=== PATIENT | male | born 1960 | race Caucasian/White ===

== ENCOUNTER 2021-03-19 20:10 | Emergency (ER) | payer BC, SELFPAY ==
[2021-03-19 20:10] VITALS: BP 201/110; PULSE 86; RESP 8; TEMP 35.5; O2SAT 96; BMI 37.3
--- NOTE | 2021-03-19 20:37 | RAD_ITS ---
INDICATION: constipation EXAMINATION/TECHNIQUE: X-RAY - XR Abdomen 1 View COMPARISON: None FINDINGS: BOWEL GAS PATTERN: Non-obstructive. No bowel or stomach distention. FREE AIR: Not assessed on a single supine view. ORGANOMEGALY: Not seen. CALCIFICATIONS: No abnormal calcifications observed. LOWER CHEST: No acute pathology. BONES AND SOFT TISSUES: No acute pathology. RAD/Abdomen Single View IMPRESSION: Non-obstructive bowel gas pattern. Electronically Signed: Glenn Blanco MD at 21:03 EDT Tel , Service support ,
--- NOTE | 2021-03-19 22:58 | CT_ITS ---
ACR Level 3 findings have been noted. An addendum which confirms receipt of the report will follow. STUDY: CT ABDOMEN AND PELVIS WITH CONTRAST REASON FOR EXAM: Male, 60 years old. Abdominal and rectal pain. TECHNIQUE: Transaxial images were obtained from the dome of the diaphragm to the symphysis pubis without oral contrast. IV 100mL Isovue-300 was administered. Sagittal and coronal images were reconstructed. Individualized dose optimization techniques were used for this CT. COMPARISON: Abdominal radiographs earlier today. FINDINGS: Partially visualized lower chest: Lung bases unremarkable. Liver: No concerning lesions. Mild hepatomegaly Gallbladder and biliary tree: No visible gallstones. No pericholecystic inflammation. No biliary ductal dilation. Pancreas: No pancreatic lesions or inflammation. Spleen: Mild splenomegaly. No splenic lesions. Adrenal glands: No concerning masses. Kidneys and ureters: No hydronephrosis or renal stones. No concerning masses. No ureteral dilation. Bowel: Normal appendix. 3.9 x 2.5 x 2.6 cm TRV X AP X CC abscess along the posterior aspect of the rectal -- anal junction. Axial image 119. Inflammatory changes in the adjacent fat. The more cephalad rectum and left colon are mildly thick-walled though not fully distended. Scattered sigmoid colon diverticula, no diverticulitis. Small bowel unremarkable. Urinary bladder: No stones or wall thickening. Reproductive: Upper normal in size prostate. Vascular: No abdominal aortic aneurysm. Retroperitoneal and peritoneal spaces: No free air or free fluid. No extraluminal air. No adenopathy. Osseous: No acute osseous abnormality. Mild left scoliosis centered at L3. Abdominal and pelvic wall: Otherwise unremarkable. CT/Abdomen/Pelvis W IV Cont ONLY IMPRESSION: 3.9 cm in greatest dimension abscess along the posterior aspect of the rectal -- anal junction with adjacent inflammation. Mild wall thickening of the more cephalad rectum and left colon could be due underdistention or a mild infectious or inflammatory colitis. No other acute findings. Mild hepatosplenomegaly. Electronically Signed: Mak Reynoso MD at 23:52 EDT Tel , Service support ,
[2021-03-19 23:28] VITALS: BP 171/85; PULSE 75; RESP 15; O2SAT 95
--- NOTE | 2021-03-19 23:28 | EX.ED.DYSGE1 ---
HPI History of Present Illness Chief Complaint: Constipation Informant: patient Narrative Narrative: 60-year-old male presents with constipation of 6 days duration. He states he feels like he has a football in his rectum. He is feels bloated. He states he has been taking some stool softeners and some MiraLAX for the past 5 days with no success. He tried a home enema as well today. He is having some rectal pain. No fevers. No urinary symptoms. PFSH PFSH no medical history Home Medications hydrocortisone [Procto-Med HC] 1 applic OR TID PRN #30 g 03/19/21 [Rx Last Taken Unknown] hydrocodone-acetaminophen 1 tab PO Q6H PRN PRN 3 Days #12 tablet 03/20/21 [Rx Last Taken Unknown] Allergy/AdvReac Type Severity Reaction Status Date / Time No Known Allergies Allergy Verified 03/19/21 20:12 no surgical history (Noncontributory) Social History (Updated 03/19/21 @ 23:[address] Bryan Truong, DO) Smoking Status: Current every day smoker substance use type: does not use ROS ROS ED Constitutional Constitutional ED: Denies chills or weight loss Eyes Eyes: Denies change in vision or diplopia ENT ENT ED: Denies ear pain, rhinorrhea or sore throat Cardiovascular Cardiovascular: Denies chest pain, orthopnea, palpitations or racing heartbeat Respiratory/Chest Respiratory/Chest: Denies cough, dyspnea or orthopnea Gastrointestinal Gastrointestinal: Reports abdominal pain, constipation and other Details: Rectal pain ; Denies diarrhea, nausea or vomiting Genitourinary Genitourinary ED: Denies dysuria, hematuria or urinary frequency Musculoskeletal Musculoskeletal: Denies arthralgias or myalgias Integumentary Denies abscess or rash Neurologic Neurologic: Denies headache(s) or weakness Psychiatric Psychiatric: Denies anxiety, depression, suicidal ideation or suicidal thoughts Endocrine Endocrinology: Denies polydipsia, polyphagia or polyuria Allergic/Immunologic Allergic/Immunologic ED: Denies mouth swelling, tongue swelling or urticaria EXAM Physical Exam Const Vital Signs: 03/19/21 20:10 03/19/21 23:28 Temperature 95.9 F L Temperature Source Temporal Pulse Rate 86 75 Respiratory Rate 8 L 15 Blood Pressure 201/110 H 171/85 H Blood Pressure Mean 140 113 Pulse Ox 96 95 Oxygen Delivery Method Room Air Room Air Positive well nourished and well developed General Appearance ED: well developed HEENT Reports normocephalic, head/scalp atraumatic and moist mucous membranes Eyes PERRL and EOMs intact bilaterally Neck no lymphadenopathy, supple and no JVD Resp normal respiratory effort and clear to auscultation bilaterally Cardio regular rate, regular rhythm and no murmurs GI normal to inspection, nondistended, normoactive bowel sounds and non-tender GI Narrative: Rectal exam reveals a nonthrombosed hemorrhoid. Internal exam basically prohibited secondary to pain Palpation: soft Back/Spine no CVA tenderness and normal ROM Extremity normal to inspection General Extremety ED: Negative for edema General Extremity: Negative for edema Neuro oriented x3 and CN's II-XII intact bilaterally Sensorium / Orientation: alert Motor Exam: strength 5/5 throughout Psych mental status grossly normal Mood & Affect: Negative for depressed or tearful Skin no rashes or lesions noted and no wounds MDM MDM MDM Narrative Medical decision making narrative: Abdominal x-ray does not show an obstructive pattern or any obvious large fecal impaction or significant stool burden. He received a soapsuds enema and had a bowel movement. He has a nonthrombosed hemorrhoid that is very tender. He points more posteriorly to that and tells me that that is what is feeling swollen and painful. I do not see/palpate an obvious abscess. Internal rectal exam is limited due to pain. We obtained a CT of the pelvis. This demonstrates a rectal abscess measuring 3.9 x 2.5 x 2.6 cm. Patient is afebrile. I spoke with our surgeon Dr. Gonzalez. I will give him a dose of IV antibiotics and I will write for pain medication. He is call the office at 8 AM to be seen tomorrow. Will write for home pain medication he should continue his stool softeners. Radiography Diagnostic Testing: Radiology Impression KUB X-Ray 03/19/21 20:37 IMPRESSION: Non-obstructive bowel gas pattern. Electronically Signed: Glenn Blanco MD at 21:03 EDT Tel , Service support , Abdomen/Pelvis CT 03/19/21 22:58 IMPRESSION: 3.9 cm in greatest dimension abscess along the posterior aspect of the rectal -- anal junction with adjacent inflammation. Mild wall thickening of the more cephalad rectum and left colon could be due underdistention or a mild infectious or inflammatory colitis. No other acute findings. Mild hepatosplenomegaly. Electronically Signed: Mak Reynoso MD at 23:52 EDT Tel , Service support , Discharge Plan Triage Chief Complaint: Constipation ED Provider: Bryan Truong Dx/Rx/DC Orders Clinical Impression: External hemorrhoid, Abscess of rectum Instructions: ED Hemorrhoids Prescriptions: New hydrocortisone [Procto-Med HC] 2.5 % cream with perineal applicator 1 applic OR TID PRN (Reason: hemorrhoids) Qty: 30 RF: 0 hydrocodone-acetaminophen [hydrocodone-acetaminophen] 1 TABLET tablet 1 tab PO Q6H PRN PRN (Reason: Pain) 3 Days Qty: 12 RF: 0 Primary Care Provider: Care Physician,No Primary Referrals: Audrey Gonzalez MD [STAFF PHYSICIAN] - As soon as possible (Please call the office in the morning. You need to be seen tomorrow. Please inform the office that we spoke with Dr. Carlos riojas and that is the plan.) Care Physician,No Primary [Primary Care Provider] - Disposition Disposition: Home, self care
[2021-03-20] MEDS: Lidocaine Jelly 2% 20 ML Syringe (URO-JET) 20 APPLIC TOPICAL (00:05)
[2021-03-20 01:00] VITALS: BP 155/91; PULSE 75; RESP 15; O2SAT 95
[2021-03-20 01:20] VITALS: BP 155/91; PULSE 75; RESP 15; O2SAT 95
== END 2021-03-20 01:41 | disposition home or self-care (01) ==
PROVIDERS: Emergency Provider Emergency Medicine
DX: K64.4 Residual hemorrhoidal skin tags (principal); K61.1 Rectal abscess; F17.200 Nicotine dependence, unspecified, uncomplicated
CPT/HCPCS: 74018; 74177; 96365; 99285; Q9967

== ENCOUNTER 2021-03-20 14:31 | Day surgery (SDC) | payer BC, SELFPAY ==
[2021-03-19 20:10] VITALS: BMI 37.3
[2021-03-20] VITALS (22 sets, daily range): BP systolic 70–147; BP diastolic 47–101; PULSE 66–80; RESP 15–20; TEMP 36.5–37.3; O2SAT 90–98; BMI 34.4
--- NOTE | 2021-03-20 14:07 | HP.PCM_ITS ---
History and Physical Date of Admission: 03/20/21 HISTORY AND PHYSICAL ? Ishan Adorno 1960 ? ? REFERRING PHYSICIAN:?? [facility], [facility]* ? CHIEF COMPLAINT:?? Consult (Perirectal Abscess) ? HPI: The patient is a 60 year old male presents from [facility] ED with perirectal abscess.. He has had pain in the area for the past 6 days. No such previous history of pain. He does admit to chronic constipation and straining with bowel movements. He states that the area is very tender to touch and thus examination is suboptimal. He denies fevers. He denies diabetes. He admits to cigarettes use. His BMI > 30. ? ? ? PAST MEDICAL HISTORY Diagnosis? Date ? Dysthymic disorder? Depression (non-psychotic) ? Perirectal abscess? 03/2021 ? Unspecified essential hypertension? Essential hypertension ? ? ? PAST SURGICAL HISTORY Procedure? Laterality? Date ? PAST SURGICAL HISTORY OF? wisdom tooth removed ? PAST SURGICAL HISTORY OF? right hand-middle finger ? PAST SURGICAL HISTORY OF? james. foot surgery as child ? VASECTOMY? 07/09/2003 ? ? ? Current Outpatient Medications Medication? Sig ? clindamycin 300 mg capsule? Take 1 capsule by mouth three times daily. ? ? ALLERGIES: Penicillin G ? PERSONAL HISTORY: ? Social History ? ? Tobacco Use ? Smoking status:? Current Every Day Smoker ? Smokeless tobacco:? Never Used ? Tobacco comment: smokes 3 cigarettes per day Substance Use Topics ? Alcohol use:? No ? Drug use:? No ? Comment: quit ? ? ? FAMILY HISTORY Problem? Relation? Age of Onset ? Cancer? Mother ? lung ? Diabetes? Father? Stroke?? Father? Cancer? Father? esophageal ? Diabetes? Paternal Grandmother? Diabetes? Paternal Grandfather? The review of systems data was entered by the nurse and reviewed by me ? Nursing Notes: Yaima Jo PROCESS TREATER? 03/20/2021? 1:30 PM? Signed REVIEW OF SYSTEMS: ? General:?? The patient denies fatigue, denies weight loss, denies weight gain, denies feeling hot, and denies feelings of cold. ? Eyes:? The patient denies glaucoma, denies eye injury/surgery, wears glasses or contacts. ? Ear/Nose/Throat:? The patient NOTES allergies, denies hayfever, denies ear infections, and denies bloody noses. ? Cardiovascular:? The patient denies chest pain, denies heart disease, NOTES high blood pressure,denies cardiac stent, NOTES prior heart attack, denies irregular heart beat, denies high cholesterol,? denies poor circulation, denies heart failure, other cardiac issues, denies claudication, denies cold feet, denies peripheral arterial stent. ? Respiratory:? The patient denies tuberculosis, denies pneumonia, denies frequent cough, denies pulmonary embolism, denies shortness of breath, and denies coughing up blood. ? Gastrointestinal:? The patient denies difficulty swallowing, denies acid reflux, denies ulcers, denies vomiting, denies jaundice/hepatitis, denies gallbladder problems, denies black or tarry stools, NOTES hemorrhoids, denies bleeding from rectum, denies diverticulitis, NOTES constipation, denies diarrhea, denies loss of stool control, and denies hernias. ? Kidney/Bladder:? The patient denies kidney stones, denies urine infections, and denies bloody urine. ? Skin:? The patient denies a history of skin cancer, denies bleeding/changing moles, and denies a history of skin rash. ? Neurologic:? The patient denies a history of epilepsy/convulsions, denies headaches, denies head/spinal injuries, and denies stroke/TIA. ? Psychiatric:? The patient denies psychiatric medications, denies depression, and denies voices, denies substance abuse. ? Endocrine:? The patient denies thyroid disorders, denies diabetes, and denies hormonal problems. ? Hematologic:? The patient denies a history of bruising, denies bleeding, and denies anemia, NOTES blood clots. ? Infections:? The patient denies a history of measles and mumps, denies rheumatic fever, and denies sexually transmitted diseases. ? Musculoskeletal:? The patient denies back pain/injury, denies back problems, denies sciatica, denies knee/foot trouble, NOTES arthritis, or denies gout. When was patient's last Mammogram screening? N/A ?Last Colonoscopy:? Unknown Yaima Sandro OCONNOR ? ? PHYSICAL EXAMINATION: General:? The patient is 60 year old male, well nourished, well hydrated in obvious pain.? The patient is oriented to time, place, and person. VITALS: Blood pressure 164/88, pulse 79, temperature 36.2 ?C (97.2 ?F), height 182.9 cm (6'), weight 116.1 kg (256 lb), SpO2 94 %. Body mass index is 34.72 kg/m?. Head ? Normocephalic. EOM intact with sclera clear and no icterus noted. Neck - supple with no jugular venous distention noted. Trachea is midline. Lungs ? clear to auscultation. Normal breath sounds. No rales/rhonchi/wheezing noted. No labored breathing noted, such as retractions. No cough heard. Heart ? normal S1 and S2 auscultated. No rubs/clicks/murmurs noted. Regular rate. Abdomen ? soft and benign. Normal bowel sounds.? Difficult to determine if any masses or organomegaly due to body habitus. Rectal - normal perianal skin except for erythema of left side - no induration palpated but supoptimal examination due to patient's pain, no drainage noted Extremities ? no calf tenderness noted. No pitting edema noted. Skin ? normal skin integrity. Neurological ? gait normal, no focal deficits noted. Psych ? calm and appropriate RADIOLOGIC STUDIES:? As Noted ? ? Assessment ? IMPRESSION: perirectal abscess ? PLAN:?? I have discussed the above with the patient and his son who is present with him. I have offered incision and drainage of this perirectal abscess.? It must be deep in the patient's tissues and also patient's body habitus precludes superficial exploration. Thus will need anesthesia for this. I have explained the procedure to the patient. I have counseled the patient as to the risks of the procedure, including but not limited to: infection, bleeding, injury to any blood vessels/nerves, scar tissue, recurrence of infection, possible incontinence, complications of anesthesia, etc. ? the patient understands. ? The patient was offered a surgery/procedure . The provider and patient have discussed in detail the risk of exposure to and/or potential harm posed by the COVID-19 virus with having a surgery/procedure at this time versus the risk of? delaying the surgery/procedure. It is not possible to know either the risk of delaying the surgery or procedure or chance of getting an infection with perfect accuracy, but a joint decision was made between the patient and the provider ?to proceed at this time with the scheduled surgery/procedure. ? The patient wishes to proceed. ? ? I have answered all questions to the patient?s satisfaction and the patient has no further questions. ? ? . Diagnoses: (K61.1) Rectal abscess? (primary encounter diagnosis) ? Return to Clinic: The patient is instructed to follow-up with me after the procedure. ? Audrey Gonzalez MD
[2021-03-20] MEDS: Lactated Ringers 1,000 ML 100 ML IV (15:45)
--- NOTE | 2021-03-20 16:55 | PCM.OPRPT ---
Report of Operation Date of Procedure: 03/20/21 Pre-Operative Diagnosis: rectal abscess Post-Operative Diagnosis: ischiorectal abscess Surgery/Procedure Performed:: evacuation and drainage of ischiorectal abscess Description of Surgical Findings:: minimal swelling exteriorly, pressure applied to area resulting in spontaneous drainage from midline central posterior aspect just inside dentate line Type of Anesthesia: General Anesthesiologist: [place] Specimen's removed: aerobic and anaerobic cultures of purulent fluid Estimated Blood Loss (mL): < 10 ml Fluids Replaced: 500 ml RL Description of Procedure: After informed consent was given, the patient was brought to the Operating Room. Appropriate time out protocol was followed. He was then placed under general anesthesia by the anesthesia provider. The patient was placed in the lithotomy position with appropriate padding to all pressure areas. The perineum and rectum was then cleansed with a sterile betadyne surgical preparation. The skin and subcutaneous tissues around the perianal area was then injected with 0.25% marcaine with epinephrine - 30 ml used. The anal canal was then palpated. The patient is obese and his body habitus precluded an easy examination. However, there was induration palpated posteriorly. Most of the patient's skin erythema was left lateral. Therefore a small skin incision was made with an 11 blade scalpel just to the left lateral of the posterior midline. Gentle probing was done to evaluate for any purulent cavity. However, none was found via this approach. Therefore, the mass was palpated further and then spontaneous purulent drainage was noted to emanate from the patient's rectum. The opening from which this drainage emanated was then carefully probed. It was proximal to the dentate line. There was an abscessed cavity in this area directed posteriorly and it was completely evacuated of purulent fluid. Culture sticks were used. It was then irrigated vigorously with hydrogen peroxide. Hemostasis was provided with electrocautery. A thrombin gel foam with buvicaine cream was applied to the anal canal. Patient was extubated and brought to Recovery Room in stable condition. Complications None noted Admit VTE Documentation VTE Present on Admission: Yes VTE Mechan Device Prophylaxis: SCD's
[2021-03-20] MEDS: Dibucaine 30 GM Tube 1 APPLIC (16:58)
[2021-03-20] MEDS: Bupiv/Epi 0.25% 30 ML Vial (16:58)
--- NOTE | 2021-03-20 17:52 | DCINST_ITS ---
Discharge Instructions Follow Up Care Test Results: Test results from this visit will be discussed in further detail at your follow-up appointment, if applicable. Discharge Plan Admission Attending Provider: Audrey Gonzalez Primary Care Provider: Care Physician,No Primary Instructions Additional Instructions / Restrictions: Recommended pain control regimen - May take 600 mg ibuprofen (Motrin) and then in 3-4 hours, may take 650 mg acetaminophen (Tylenol), then in 3-4 hours may take 600 mg ibuprofen, then in 3- 4 hours may take 650 mg acetaminophen and so on for 2-3 days May take narcotic pain medication for pain that is not controlled by above and at night for comfort through the night May soak in tub for comfort Avoid straining with bowel movements, mineral oil may help (1-2 tablespoons mixed with pudding/yogurt/etc. - may help), take an over the counter laxative if needed You will have rectal bleeding - this is normal, use pads to prevent staining clothing/bedsheets/etc. Please call for a follow up appointment in 3-4 weeks, During the week day, if you have any problems/questions, please call at . Take in 25-30 grams of fiber per day (check ingredients label on food packaging) Drink 8-10 glasses of water per day. Discharge Orders/Prescriptions Prescriptions: New hydrocodone-acetaminophen 5-325 mg tablet 1 tab PO Q8H 5 Days Qty: 15 RF: 0 No Action hydrocortisone [Procto-Med HC] 2.5 % cream with perineal applicator 1 applic [place] TID PRN (Reason: hemorrhoids) Qty: 30 RF: 0 hydrocodone-acetaminophen [hydrocodone-acetaminophen] 1 TABLET tablet 1 tab PO Q6H PRN PRN (Reason: Pain) 3 Days Qty: 12 RF: 0 Referrals: Care Physician,No Primary [Primary Care Provider] - Disposition Discharge Orders: Discharge Patient (Routine); Ordered 03/20/21 Ordered By: Dr. Audrey Gonzalez
[2021-03-20] MEDS: HYDROcodone Bitartrate/Apap 5/325 Tablet PO (18:50)
[2021-03-20] MEDS: Albuterol 2.5 MG/3 ML VIAL.NEB. INHALATION (19:30)
--- NOTE | 2021-03-20 20:30 | RAD_ITS ---
INDICATION: EVALUATE LUNG STATUS DUE TO LOW OXYGEN SATURATION -- 88% ON ROOM AIR EXAMINATION/TECHNIQUE: X-RAY - XR Chest 1 View COMPARISON: None. FINDINGS: Left basilar atelectasis. The lungs are otherwise clear. The cardiomediastinal silhouette is unremarkable. No pleural effusion or pneumothorax. No acute osseous abnormalities. RAD/Chest 1 View (Portable) IMPRESSION: Left basilar atelectasis. The lungs are otherwise clear. Electronically Signed: Glenn Blanco MD at 21:35 EDT Tel , Service support ,
== END 2021-03-20 21:13 ==
LOC: SDC 14:32 → AC 14:33
PROVIDERS: Referring Provider Surgery; Visit Provider Surgery
PROC: (CPT 46040; principal; 2021-03-20 15:45)
DX: K61.39 Other ischiorectal abscess (principal); K59.09 Other constipation; F17.210 Nicotine dependence, cigarettes, uncomplicated; I10 Essential (primary) hypertension; Z86.718 Personal history of other venous thrombosis and embolism
CPT/HCPCS: 00902; 46040; 71045; 87015; 87070; 87075; 87077; 87102; 87116; 87186; 87205; 87206; 87426; 94640; J7050; J7120; J2405

== ENCOUNTER 2022-11-19 10:47 | Emergency (ER) | payer BC, SELFPAY ==
[2022-11-19 10:47] VITALS: BP 214/117; PULSE 72; RESP 18; TEMP 36.6; O2SAT 94; BMI 34.4
[2022-11-19 10:49] VITALS: BP 200/100; PULSE 72; RESP 18; TEMP 36.6; O2SAT 96
--- NOTE | 2022-11-19 11:06 | VDLE_ITS ---
Reason For Study: Swelling Procedure LEFT This is a venous duplex using B-mode, color GSV is normal. flow and spectral Doppler. CFV is compressible, spontaneous, phasic, Exam performed portable in ED. competent, and demonstrates normal A preliminary report was called and/or faxed augmentation. to Dr. John. FV is compressible, spontaneous, phasic, competent and demonstrates normal augmentation. POP V is compressible, spontaneous, phasic, competent and demonstrates normal augmentation. T/P Trunk is compressible. PTV is compressible. LT PerV is compressible. VL/Venous Duplex US, Unilateral Interpretation Summary There is no evidence of left lower extremity deep vein thrombosis. Left great s aphenous vein appears patent and compressible segmentally. Ordering Physician: Nico John Performed By: Deana Davis, RDCS, RVT
--- NOTE | 2022-11-19 11:07 | ED.VIS.LOWEX ---
HPI History of Present Illness Chief Complaint: Wound Informant: patient Narrative Narrative: Patient's had a nonhealing wound in the medial aspect of his left ankle for about 2 or so years. This started after he got something stuck between his boot and his skin and abraded the area. He was seen by wound care for a while. But he has not seen them in a long time. Over the last days or week it is gotten a little bit more red and a little bit more weeping. He also has some more swelling. Really no change in any pain. He has had no fevers or chills. No nausea vomiting. No acute trauma. Of note, patient has had a history of blood pressure but he has never taken meds for it. He denies history of diabetes. He does not see a physician. Nothing makes the above symptoms specifically better or worse. Although he did not share information with me, his chart states he has had a prior DVT. He is not on any anticoagulation now. [facility] Medical History DVT (deep venous thrombosis) History of cardiovascular stress test History of stress test Hypertension Osteoporosis Seizures Home Medications hydrocortisone 2.5 % topical cream with perineal applicator (Procto-Med HC) [address] TID PRN hemorrhoids #30 grams 03/19/21 [Rx Last Taken Unknown] hydrocodone-acetaminophen 5-325mg 5mg-325mg 1 tab PO Q6H PRN PRN Pain 3 days #12 TABLETS 03/20/21 [Rx Last Taken 03/20/21 12:52] hydrocodone-acetaminophen 5-325mg 5mg-325mg 1 tab PO Q8H 5 days #15 tabs 03/20/21 [Rx Last Taken Unknown] amlodipine 5 mg tablet 5 mg PO DAILY #30 tabs 11/19/22 [Rx Last Taken Unknown] amoxicillin 875 mg-potassium clavulanate 125 mg tablet 1 tab PO BID #20 tabs 11/19/22 [Rx Last Taken Unknown] Allergy/AdvReac Type Severity Reaction Status Date / Time No Known Allergies Allergy Verified 11/19/22 10:50 Surgical History History of nasal surgery Hx of hand surgery Social History Smoking Status: Heavy Smoker (>10/day) substance use type: does not use ROS ROS ED Constitutional Constitutional ED: Denies chills, fever(s), subjective or sweats ENT ENT ED: Denies rhinorrhea or sore throat Cardiovascular Cardiovascular: Denies chest pain or palpitations Respiratory/Chest Respiratory/Chest: Denies cough Gastrointestinal Gastrointestinal: Denies nausea or vomiting Musculoskeletal Musculoskeletal: Reports other Details: Soreness near her left lower leg and ankle. ; Denies back pain, myalgias or neck pain Integumentary Reports rash Neurologic Neurologic: Denies paresthesias or weakness Endocrine Endocrinology: Denies polydipsia or polyuria Hematologic/Lymphatic Hematologic/Lymphatic: Denies lymphadenopathy Allergic/Immunologic Allergic/Immunologic ED: Denies urticaria EXAM Physical Exam Const Vital Signs: 11/19/22 10:47 11/19/22 10:49 11/19/22 11:09 Temperature 98 F 98 F 98 F Temperature Source Temporal Temporal Temporal Pulse Rate 72 72 61 Respiratory Rate 18 18 18 Blood Pressure 214/117 H 200/100 H 190/113 H Blood Pressure Mean 149 133 138 Pulse Ox 94 96 97 Oxygen Delivery Method Room Air Room Air Room Air 11/19/22 11:09 Temperature Temperature Source Pulse Rate 62 Respiratory Rate 18 Blood Pressure 190/113 H Blood Pressure Mean 138 Pulse Ox 98 Oxygen Delivery Method Room Air Positive well nourished and well developed General Appearance ED: well developed and NAD HEENT Reports moist mucous membranes atraumatic Resp normal respiratory effort and no retractions Cardio regular rate and regular rhythm GI non-tender and non-distended Back/Spine no CVA tenderness Extremity Extremity Narrative: Patient does have erythema and warmth to the lower left leg slightly above the ankle and at the ankle. There is an area of weeping medial aspect of the ankle that has several open areas. No abscess. I note that his calf also seems a little bit bigger on the left than the right. It is not tender. Neuro oriented x3 Psych mental status grossly normal Skin Skin Narrative: See above. MDM MDM MDM Narrative Medical decision making narrative: X-rays and ultrasound showed no acute process. CBC showed elevated hemoglobin which is likely chronic but normal white count and platelets. Electrolytes were normal including normal glucose of 90. I had talk with the patient. His blood pressure is elevated here. He has a history of high blood pressure but has not been on any medications for this. I will start something because I truly think he has longstanding blood pressure which has not yet been treated. I will also give him antibiotics because I think his leg is representing a developing cellulitis. 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 I explained that he needs to follow-up. He needs long-term care. He may need change in his blood pressure medicines. The medicines I am giving him are not permanent treatment but they are initiation of long-term therapy. I think he is okay for discharge. He has no nausea vomiting fevers white count or hyperglycemia. He should recover with outpatient therapy but we discussed reasons to return. Lab Data Attestation: I reviewed the patient's lab results. Labs: Laboratory Results - last 24 hr 11/19/22 11/19/22 11:10 11:10 WBC 7.4 RBC 5.65 Hgb 17.3 H Hct 49.8 MCV 88.1 MCH 30.6 MCHC 34.7 RDW Std Deviation 41.1 RDW Coeff of Adrian 12.7 Plt Count 215 MPV 10.5 Immature Gran % (Auto) 0.400 Neut % (Auto) 53.3 Lymph % (Auto) 30.3 Mcculloch % (Auto) 9.1 Eos % (Auto) 6.1 H Baso % (Auto) 0.8 Absolute Neuts (auto) 3.9 Absolute Lymphs (auto) 2.24 Nucleated RBC % 0 Sodium 137 Potassium 4.0 Chloride 106 Carbon Dioxide 27.0 Anion Gap 4 L BUN 18 Creatinine 0.99 Estim Creat Clear Calc 81.93 Est GFR (MDRD) Af Amer 100 Est GFR (MDRD) Non-Af 82 BUN/Creatinine Ratio 18.3 Glucose 90 Calcium 8.6 Radiography Diagnostic Testing: Clinical Impression(s) from Imaging Studies Ankle X-Ray 11/19/22 11:11 IMPRESSION: 1. Mild to moderate soft tissue swelling is present around ankle joint. No subcutaneous air is present. There is no evidence of osteomyelitis. Electronically Signed: Neel Baez MD at 12:10 EST Reading Location ID and State: [facility] / [place] , Service support , Three-view x-ray of the left ankle shows some soft tissue swelling but no sign of bony involvement. 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 Discharge Plan Triage Chief Complaint: Wound ED Provider: Nico John Dx/Rx/DC Orders Clinical Impression: Cellulitis of left leg, Elevated blood pressure reading Instructions: Hypertension Dc, ED Cellulitis Prescriptions: New amoxicillin-pot clavulanate 875-125 mg tablet 1 tab PO BID Qty: 20 0RF amlodipine 5 mg tablet 5 mg PO DAILY Qty: 30 0RF No Action hydrocortisone [Procto-Med HC] 2.5 % cream with perineal applicator [address] TID PRN (Reason: hemorrhoids) Qty: 30 0RF hydrocodone-acetaminophen [hydrocodone-acetaminophen] 1 TABLET tablet 1 tab PO Q6H PRN PRN (Reason: Pain) 3 Days Qty: 12 0RF hydrocodone-acetaminophen 5-325 mg tablet 1 tab PO Q8H 5 Days Qty: 15 0RF Primary Care Provider: Care Physician,No Primary Referrals: Ishan Sevilla MD [Med Staff - Senior Corporate Accountant] - 1 Week Care Physician,No Primary [Primary Care Provider] - Disposition Disposition: Home, Self Care
[2022-11-19 11:09] VITALS: BP 190/113; PULSE 61; PULSE 62; RESP 18; TEMP 36.6; O2SAT 97; O2SAT 98
--- NOTE | 2022-11-19 11:11 | RAD_ITS ---
STUDY: X-RAY - LEFT ANKLE REASON FOR EXAM: Male, 62 years old. medial ankle wound x 2 years TECHNIQUE: 3 view(s) of the ankle. COMPARISON: Left ankle x-ray dated October 31, 2016 FINDINGS: Mild to moderate soft tissue swelling is present around ankle joint. No subcutaneous air is present. There is no evidence of osteomyelitis. Normal visualized distal tibia and fibula. Normal medial and lateral malleoli. Normal tibiotalar articulation and ankle mortise. Normal visualized talus and calcaneus. The visualized subtalar, talonavicular, calcaneocuboid and tarsal articulations are normal. There is no demonstrated fracture. RAD/Ankle min 3 Views IMPRESSION: 1. Mild to moderate soft tissue swelling is present around ankle joint. No subcutaneous air is present. There is no evidence of osteomyelitis. Electronically Signed: Neel Baez MD at 12:10 EST ,
[2022-11-19 11:27] LABS: Absolute Lymphocyte Count 2.24 X10^3/uL (0.83-4.51); Absolute Neutrophil Count 3.9 X10^3/uL (2.0-7.7); Basophil# 0.06 X10^3/uL; Basophil% 0.8 % (0-1); Eosinophil# 0.45 X10^3/uL; Eosinophils% 6.1 % (0-5); Hematocrit 49.8 % (40-54); Hemoglobin 17.3 g/dL (13.0-16.5); Lymphocyte # 2.24 X10^3/ul (0.83-4.51); Lymphocyte % 30.3 % (19-41); Mean Corp Hgb Conc 34.7 g/dL (32-36); Mean Corpuscular Hgb 30.6 pg (27.0-32.0); Mean Corpuscular Volume 88.1 fL (80-94); Mean Platelet Vol. 10.5 fl (6.2-12.0); Monocyte# 0.67 X10^3/uL; Monocyte% 9.1 % (0-10); NRBC Flagged by Analyzer 0 % (0-5); Neutrophil # 3.94 X10^3/uL (2.7-7.7); Neutrophil % 53.3 % (47-70); Platelet Count 215 K/mm3 (150-450); RBC Distribution Width CV 12.7 % (11.6-14.6); RBC Distribution Width SD 41.1 fl (35.1-43.9); Red Blood Count 5.65 M/mm3 (4.6-6.2); White Blood Count 7.4 K/mm3 (4.4-11.0)
[2022-11-19 11:40] LABS: Anion Gap 4 (5-15); BUN 18 mg/dL (7-18); BUN/Creat Ratio 18.3 RATIO (10-20); Calcium,Total 8.6 mg/dL (8.5-10.1); Chloride 106 mmol/L (98-107); Creatinine, Serum 0.99 mg/dL (0.70-1.30); EST Glomerular Filtration Rate 82 mL/min (>60); Est Glom Filt Rate - Afr Amer 100 mL/min (>60); Estimated Creatinine Clearance 81.93 ml/min; Glucose 90 mg/dL (74-106); Sodium Level 137 mmol/L (136-145)
[2022-11-19 14:59] VITALS: BP 180/90; PULSE 60; RESP 15; TEMP 37.1; O2SAT 99
== END 2022-11-19 15:00 | disposition home or self-care (01) ==
PROVIDERS: Emergency Provider Emergency Medicine; Visit Provider Emergency Medicine
DX: L03.116 Cellulitis of left lower limb (principal); R03.0 Elevated blood-pressure reading, without diagnosis of hypertension; F17.200 Nicotine dependence, unspecified, uncomplicated; Z86.718 Personal history of other venous thrombosis and embolism
CPT/HCPCS: 73610; 80048; 85025; 93971; 99283; A4216

== ENCOUNTER → 2022-12-17 | Outpatient (CLI) | payer BC, SELFPAY | END | disposition home or self-care (01) | LOC: SL 20:15 | PROVIDERS: PCP Internal Medicine; Referring Provider Internal Medicine; Visit Provider Internal Medicine | DX: G47.10 Hypersomnia, unspecified (principal); I10 Essential (primary) hypertension; R29.818 Other symptoms and signs involving the nervous system | CPT/HCPCS: 95810 ==

== ENCOUNTER 2022-12-18 08:30 | Outpatient (RCR) | payer BC, SELFPAY ==
[2022-12-04 09:14] VITALS: BP 189/112; PULSE 61; RESP 16; TEMP 36.1; BMI 40.3
--- NOTE | 2022-12-04 14:29 | HP.PCM_ITS ---
History of Present Illness Date of Service: 12/04/22 Chief Complaint: Venous stasis ulceration, chronic venous hypertension with inflammation and ulceration, leg swelling, leg edema?left lower extremity History of Wound: This is a 62-year-old obese male who presents with an ulceration overlying the left medial malleolus. According to the patient and his significant-other, female friend the ulceration has been present for more than 2 years. The patient feels as though it is due to a foreign body which became stuck between his boot and skin causing a pressure ulceration. However, from a clinical standpoint, it is much more likely that this is related to chronic venous hypertension and associated venous disease. The patient relates swelling and edema in his lower extremities, which is worse at the end of each day. 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 He also sleeps in a recliner, although he insists that his lower extremities are at heart level, or higher. He is not very active during his time at home, often sitting for prolonged periods. The patient is a smoker, smoking 1 pack of cigarettes per day for many years. Appropriate counseling has been undertaken as to the adverse effects of tobacco use. With respect to his current ulceration, he was initially placed on oral Augmentin in the Emergency Department earlier this month for cellulitis, and is currently taking a prescription for doxycycline, as prescribed by his primary care physician. The patient denies a history of deep vein thrombosis. The patient suffers from hypertension and obesity. His BMI is 40.3. Patient's history is negative for myocardial infarction, cerebrovascular accident, diabetes mellitus, pulmonary disease, renal disease, thyroid disease, and hyperlipidemia. FOR[facility]LY [facility], LATER [facility] Medical History Chronic venous hypertension w/ulcer and inflammation involv left side Chronic venous insufficiency DVT (deep venous thrombosis) History of cardiovascular stress test History of seizures History of stress test Hypertension Hypertension Left leg swelling Leg edema, left Lipodermatosclerosis Osteoporosis Seizures Tobacco abuse counseling Tobacco abuse disorder Venous stasis ulcer of ankle with fat layer exposed Home Medications amlodipine 5 mg tablet 5 mg PO DAILY #30 tabs 11/19/22 [Rx Last Taken Unknown] doxycycline hyclate 100 mg capsule 100 mg PO BID 12/04/22 [History Last Taken Unknown] furosemide 20 mg tablet 20 mg PO DAILY 12/04/22 [History Last Taken Unknown] ibuprofen 800 mg tablet 800 mg PO BID 12/04/22 [History Last Taken Unknown] Allergy/AdvReac Type Severity Reaction Status Date / Time No Known Allergies Allergy Verified 12/04/22 09:55 Surgical History History of hand surgery History of hemorrhoidectomy History of nasal surgery Hx of hand surgery Social History Smoking Status: Current every day smoker tobacco type: cigarettes substance use type: does not use Vital Signs Vital Signs Vital Signs: 12/04/22 09:14 Temperature 97.0 F L Temperature Source Temporal Pulse Rate 61 Respiratory Rate 16 Blood Pressure 189/112 H Blood Pressure Mean 137 Blood Pressure Source Monitor Blood Pressure Position Sitting Blood Pressure Location Right Arm Oxygen Delivery Method Room Air Weight Weight: 285 lb Body Mass Index (BMI) 40.3 Physical Exam Const alert, oriented x3, no apparent distress and well nourished Constitutional Narrative: The patient is obese. He is friendly and conversant. General Appearance: cooperative, comfortable, well kempt and well developed Orientation / Consciousness: awake, oriented to person, oriented to place and oriented to time Exam Limitations: no limitations HEENT normocephalic, head/scalp atraumatic and hearing grossly normal bilaterally Head and Scalp: normal to inspection, normocephalic and atraumatic External Ear: external ears normal Eyes PERRL and EOMs intact bilaterally General Eye: normal appearance of both eyes Neck full ROM Resp normal respiratory effort, normal air movement, no retractions and no use of accessory muscles Effort and Inspection: able to speak in complete sentences Extremity no calf tenderness General Extremity: Negative for clubbing or cyanosis Skin Wound Narrative: A clustered ulceration is noted overlying the left medial malleolus. There is a large amount of bioburden and nonviable tissue present. There is no obvious sign of infection or cellulitis. Mild swelling and edema is noted in the lower extremities bilaterally. Hyperpigmentation and lipodermatosclerosis are noted in the gaiter areas bilaterally, more pronounced in the left lower extremity. Ulcer dimensions are documented elsewhere. Neuro oriented x3, CN's II-XII intact bilaterally, moves all extremities and no focal motor deficits Sensorium / Orientation: awake, alert, oriented to person, oriented to place and oriented to time Psych Appearance: grossly normal and appropriate Attitude: calm Activity / Motor Behavior: appropriate eye contact Speech: normal speech Mood & Affect: euthymic mood Thought Process: normal thought process Thought Content: normal thought content Attention / Concentration: attention grossly intact Debridement Note Debridement Note Wound debrided: Left medial malleolus, clustered ulceration Laterality: Left Type of Debridement: Excisional debridement Anesthesia Used: 5% Lidocaine Gel and Cetacaine Depth: Down to and including healthy tissue and in the subcutaneous layer Percentage of wound debrided: 100 Instrument Used: 3mm curette Severity: Fat Layer Exposed Amount of bleeding with debridement: Mild Bleeding Controlled with: Compression and gauze Patient tolerated procedure: Patient tolerated procedure well Post-Debridement Measurements and Additional Note: Post-Debridement Measurements/Treatment - Nurse 1 - General Ulcer Assessment Start: 12/04/22 09:14 Freq: Status: Active Protocol: LYLE Activity Type Activity Date Activity User E-sign Co-sign Detail Recorded Client Recorded Date Recorded By Document 12/04/22 09:14 [id number] 12/04/22 09:37 MW 12/04/22 09:14 - Today's Visit Information Type of service Initial Visit Arrival Mode Ambulatory Transfer Assistance None Accompanied by significant other Patient Identification Verified (Name & Yes ) Patient Requires Transmission-Based No Precautions Safety Precautions NA Height and Weight Height 5 ft 10.5 in Weight 285 lb Weight in Pounds 285.0 lbs Body Mass Index (BMI) 40.3 BMI Classification Obese BSA - Anastacia 2.44 Vital Signs Temperature (97.8 F-99.1 F) 97.0 F L Temperature Source Temporal Pulse Rate (60-100) 61 Pulse Location Monitor Respiratory Rate (12-18) 16 Respiratory rate source Observation Oxygen Delivery Method Room Air Blood Pressure (90/60-120/80) 189/112 H Blood Pressure Mean 137 Source Monitor Position Sitting Blood Pressure Location Right Arm History Since Last Visit- (Skip if this is Patient's initial visit) Left Footwear Regular Shoe Right Footwear Regular Shoe Pain Scale: 0-10 Numeric Is Patient Pain Free? Yes Lower Extremity Assessment/ Foot Assessment/ Toe Nail Assessment Right -Posterior Tibial Palpable Yes -Posterior Tibial Doppler Multiphasic -Dorsalis Pedis Palpable Yes -Dorsalis Pedis Doppler Multiphasic -Extremity Color Hemosiderin -Hair Growth on Legs No -Hair Growth on Toes No -Temperature of Extremity Warm -Dependent Rubor No -Lipodermatosclerosis No -Other Deformity No -Prior Foot Ulcer No -Charcot Joint No -Prior Amputation No -Thick Yes -Discolored Yes -Deformed No -Improper Length & Hygeine Yes Left -Posterior Tibial Palpable Yes -Posterior Tibial Doppler Multiphasic -Dorsalis Pedis Palpable Yes -Dorsalis Pedis Doppler Multiphasic -Extremity Color Hemosiderin -Hair Growth on Legs No -Hair Growth on Toes No -Temperature of Extremity Warm -Capillary Refill Less than 3 Seconds -Dependent Rubor No -Lipodermatosclerosis No -Other Deformity No -Prior Foot Ulcer No -Charcot Joint No -Prior Amputation No -Thick Yes -Discolored Yes -Deformed No -Improper Length & Hygeine Yes Neuropathy Assessment Feet - Top Side and Bottom <Entered> (a) Communication Assessment Preferred language Sudanese Supervisor [employer] Required No Able to Read Yes Able to Write Yes Communication Tools None Caregiver Communication Skills No Impairment Impairment Right Hearing Abillity Normal Left Hearing Abillity Normal Visual Assistive Devices Glasses Teaching Assessment Preferences Verbal,Written, Audio/Visual, Demonstration Barriers to Learning None Readiness To Learn Excellent Willingness to Engage in Self Management High Activies Readiness to Engage in Self Management High Activities Anxiety Level Calm Cooperation Cooperative Perception Coherent Interest in Health Problem Asks Questions Education Importance Acknowledges Need Does Patient Smoke tobacco or other Yes substances Smoking Status Current every day smoker Is Patient Diabetic No Functional Assessment Recent Decline in Ability to Perform Denies Any Declines Assistive Device With Patient No 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 Tie Tape Machine Operator to contact place of shinto No Teaching: Wound Center *Welcome to the Wound Center -Person Taught Patient -Teaching Method Discussion -Response to teaching Verbalize understanding (a) 1 - + WC - Nurse 1 - General Ulcer Measurement Start: 12/04/22 09:14 Freq: Status: Active Protocol: Activity Type Activity Date Activity User E-sign Co-sign Detail Recorded Client Recorded Date Recorded By Document 12/04/22 09:14 MW [id number] 12/04/22 09:37 MW 01/17/23 09:14 Wound Center Nurse 1 #1 left medial ankle -Combined with other wound No -Current Size (cm) - Length 4.5 -Current Size (cm) - Width 5.0 -Current Size (cm) - Depth 0.1 -Total Square Cm 22.50 -Date of Last Picture (Recall this 12/04/22 field) -Photo Taken Yes -Epithelialization None Present -Tunneling No -Undermining/Tunneling No -Circular Undermining No -Exudate Amt Large -Exudate Type Serosanguineous -Wound Margin Flat & Intact -Granulation Amt None Present (0 %) -Granulation Quality N/A -Slough/Fibrin Yes -Necrosis Amt Large (67-100%) -Structure Exposed N/A -Texture ([place]-wound Skin Appearance) Assessed, Localized Edema -Moisture ([place]-wound Skin Appearance) No Abnormality, Assessed -Color ([place]-wound Skin Appearance) Assessed, Hemosiderin Staining -Temperature ([place]-wound Skin No Abnormality Appearance) (Pt Warm) -Tenderness on Palpation ([place]-wound No Skin Appearance) -Ulcer Cleansing Rinsed/ Irrigated with Saline -Foul Odor after Cleansing No -Anesthetic Used 5% Lidocaine Gel Lower Limb Edema Present Yes Right Calf (cm) 44.5 Right Ankle (cm) 29.0 Left Calf (cm) 48.5 Left Ankle (cm) 30.5 WC - Nurse 2 - General Ulcer CM Notes Start: 12/04/22 09:14 Freq: Status: Active Protocol: Activity Type Activity Date Activity User E-sign Co-sign Detail Recorded Client Recorded Date Recorded By Document 12/04/22 11:34 PL [id number] 12/04/22 11:36 PL 12/04/22 11:34 Wound Center Nurse 2 #1 left medial ankle -Time 10:03 -Correct Patient Yes -Correct Side, Site, Position Yes -Correct Procedure Yes -Procedure Performed Yes -Type of Procedure Debridement -Clinical Debridement Subcutaneous -Tissue Removed Subcutaneous -Post Debridement (cm) - Length 4.5 -Post Debridement (cm) - Width 5.0 -Post Debridement (cm) - Depth 0.1 -Total Square (Post) (cm) 22.50 -Area of Debridement (cm) - Length 4.5 -Area of Debridement (cm) - Width 5.0 -Total Square (Area) (cm) 22.50 -Tunneling No -Undermining/Tunneling No -Circular Undermining No -Wound/Ulcer Outcome Not Healed -Ulcer Cleansing Rinsed/ Irrigated with Saline -Foul Odor after Cleansing No -Bioengineered Tissue No -Bleeding Controlled with Pressure -Treatment Response Procedure Tolerated Well -Debridement - Subq, 1st 20sq cm Yes -Debridement, SubQ, ea addt'l 20sq cm 1 or part thereof Pain Scale: 0-10 Numeric Is Patient Pain Free? Yes WC - Nurse 3 - General Ulcer D/C NN Start: 12/04/22 09:14 Freq: Status: Active Protocol: Activity Type Activity Date Activity User E-sign Co-sign Detail Recorded Client Recorded Date Recorded By Document 12/04/22 10:59 MW [id number] 12/04/22 11:01 MW 12/04/22 10:59 Wound Care Nurse 3 #1 left medial ankle -Ulcer Cleansing Rinsed/ Irrigated with Saline -Foul Odor after Cleansing No -Negative Pressure Wound Therapy N/A -Primary Dressing Applied Optilok 6.5x10, Promogran -Primary Dressing Covered/Secured with Dry Gauze & Roll Gauze, Secured with Tape -Other Covering unna boot -Optilok 6.5x10 1 -Promogran 1 Left -Lotion applied to leg before No compression wrap -Multi-Layered Wrap Application Unna Boot - Left ($) Treatment Response Procedure Tolerated Well Pain Scale: 0-10 Numeric Is Patient Pain Free? Yes Teaching: Wound Center Compression Wraps & Stockings -Person Taught Patient, Significant Other -Teaching Method Discussion -Response to teaching Verbalize understanding Control Swelling with Leg Elevation -Person Taught Patient, Significant Other -Teaching Method Discussion -Response to teaching Verbalize understanding Dressing Your Wound -Person Taught Patient, Significant Other -Teaching Method Discussion -Response to teaching Verbalize understanding WC - Visit Discharge Discharge Condition Stable Ambulatory Status Ambulatory Transportation Private Auto Accompanied by significant other Medication Reconcilliation completed & No provided to patient/care provider Clinical Summary of Care Provided Yes Assessment/Plan Assessment/Plan (1) Venous stasis ulcer of ankle with fat layer exposed: CODE(S): I83.003 - Varicose veins of unspecified lower extremity with ulcer of ankle; L97.302 - 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 (2) Chronic venous hypertension w/ulcer and inflammation involv left side: CODE(S): I87.332 - Chronic venous hypertension (idiopathic) with ulcer and inflammation of left lower extremity; L97.929 - Non-pressure chronic ulcer of unspecified part of left lower leg with unspecified severity (3) Chronic venous insufficiency: CODE(S): I87.2 - Venous insufficiency (chronic) (peripheral) (4) Lipodermatosclerosis: CODE(S): I83.10 - Varicose veins of unspecified lower extremity with inflammation (5) Left leg swelling: CODE(S): M79.89 - Other specified soft tissue disorders (6) Leg edema, left: CODE(S): R60.0 - Localized edema (7) Hypertension: CODE(S): I10 - Essential (primary) hypertension (8) Tobacco abuse disorder: CODE(S): Z72.0 - Tobacco use (9) Tobacco abuse counseling: CODE(S): Z71.6 - Tobacco abuse counseling (10) History of seizures: CODE(S): Z87.898 - Personal history of other specified conditions (11) History of hemorrhoidectomy: CODE(S): Z98.890 - Other specified postprocedural states (12) History of hand surgery: CODE(S): Z98.890 - Other specified postprocedural states PLAN: Plan This is a 62-year-old obese male who presents with an ulceration overlying the left medial malleolus. This appears to be related to chronic venous hypertension with inflammation and chronic venous insufficiency. Patient also experiences swelling and edema in his lower extremities, more pronounced at the end of the day. A lengthy discussion has been undertaken as to the appropriate means of management relative to the patient's chronic venous disease. Leg elevation has been recommended. The patient has been encouraged to sleep on a flat surface at night. His legs are to be at heart level, or higher, both while sleeping and during daytime hours. Prolonged idle sitting with his legs in a dependent position has been discouraged. Activity has been encouraged, with recruitment of the calf and foot muscle pumps. Weight loss has also been recommended. We are to implement compression to the left lower extremity by means of an Unna boot, which will be applied twice weekly. We are to use Promogran topically to the ulceration. Patient is to return in 1 week for reassessment. Recent laboratory results from November 19, 2022, have been reviewed, with results as follows: White blood count 7.4, hemoglobin 17.3, hematocrit 49.8, platelets 215,000, sodium 137, potassium 4.0, chloride 106, creatinine 0.99, BUN 18, glucose 90, calcium 8.6. A venous duplex examination performed on November 19, 2022, was negative for evidence of deep vein thrombosis. An x-ray on that date revealed no evidence of osteomyelitis of the ankle. Nutritional optimization has been recommended. Patient has been advised to cease his smoking habit. Total time: 58 minutes
[2022-12-11 08:03] VITALS: BP 173/106; PULSE 79; RESP 16; TEMP 36.2; BMI 40.3
--- NOTE | 2022-12-11 09:29 | HP.PCM_ITS ---
History of Present Illness Date of Service: 12/11/22 Chief Complaint: Venous stasis ulceration, chronic venous hypertension with inflammation and ulceration, leg swelling, leg edema?left lower extremity History of Wound: This is a 62-year-old obese male who presented with an ulceration overlying the left medial malleolus. According to the patient and his significant-other female friend, the ulceration has been present for more than 2 years. The patient feels as though it is due to a foreign body which became stuck between his boot and skin causing a pressure ulceration. However, from a clinical standpoint, it is much more likely that this is related to chronic venous hypertension and associated venous disease. The patient relates swelling and edema in his lower extremities, which is worse at the end of each day. 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 He also sleeps in a recliner, although he insists that his lower extremities are at heart level, or higher. He is not very active during his time at home, often sitting for prolonged periods. The patient is a smoker, smoking 1 pack of cigarettes per day for many years. Appropriate counseling has been undertaken as to the adverse effects of tobacco use. With respect to his current ulceration, he was initially placed on oral Augmentin in the Emergency Department earlier this month for cellulitis, and has completed a course of doxycycline more recently, as prescribed by his primary care physician. The patient denies a history of deep vein thrombosis. The patient suffers from hypertension and obesity. His BMI is 40.3. The patient's history is negative for myocardial infarction, cerebrovascular accident, diabetes mellitus, pulmonary disease, renal disease, thyroid disease, and hyperlipidemia. [facility] Medical History Chronic venous hypertension w/ulcer and inflammation involv left side Chronic venous insufficiency DVT (deep venous thrombosis) History of cardiovascular stress test History of seizures History of stress test Hypertension Hypertension Left leg swelling Leg edema, left Lipodermatosclerosis Osteoporosis Seizures Tobacco abuse counseling Tobacco abuse disorder Venous stasis ulcer of ankle with fat layer exposed Home Medications amlodipine 5 mg tablet 5 mg PO DAILY #30 tabs 11/19/22 [Rx Last Taken Unknown] doxycycline hyclate 100 mg capsule 100 mg PO BID 12/04/22 [History Last Taken Unknown] furosemide 20 mg tablet 20 mg PO DAILY 12/04/22 [History Last Taken Unknown] ibuprofen 800 mg tablet 800 mg PO BID 12/04/22 [History Last Taken Unknown] Allergy/AdvReac Type Severity Reaction Status Date / Time No Known Allergies Allergy Verified 12/04/22 09:55 Surgical History History of hand surgery History of hemorrhoidectomy History of nasal surgery Hx of hand surgery Social History Smoking Status: Current every day smoker tobacco type: cigarettes substance use type: does not use Vital Signs Vital Signs Vital Signs: 12/11/22 08:03 Temperature 97.2 F L Temperature Source Temporal Pulse Rate 79 Respiratory Rate 16 Blood Pressure 173/106 H Blood Pressure Mean 128 Blood Pressure Source Monitor Blood Pressure Position Sitting Blood Pressure Location Left Arm Oxygen Delivery Method Room Air Weight Weight: 285 lb Body Mass Index (BMI) 40.3 Physical Exam Const alert, oriented x3, no apparent distress and well nourished Constitutional Narrative: The patient is obese. He is friendly and conversant. General Appearance: cooperative, comfortable, well kempt and well developed Orientation / Consciousness: awake, oriented to person, oriented to place and oriented to time Exam Limitations: no limitations HEENT normocephalic, head/scalp atraumatic and hearing grossly normal bilaterally Head and Scalp: normal to inspection, normocephalic and atraumatic External Ear: external ears normal Eyes PERRL and EOMs intact bilaterally General Eye: normal appearance of both eyes Neck full ROM Resp normal respiratory effort, normal air movement, no retractions and no use of accessory muscles Effort and Inspection: able to speak in complete sentences Extremity no calf tenderness General Extremity: Negative for clubbing or cyanosis Skin Wound Narrative: A clustered ulceration is noted overlying the left medial malleolus. There is a moderate amount of bioburden and nonviable tissue present. There is no obvious sign of infection or cellulitis. Mild swelling and edema is noted in the lower extremities bilaterally, though significantly improved over the last week. Hyperpigmentation and lipodermatosclerosis are noted in the gaiter areas bilaterally, more pronounced in the left lower extremity. Ulcer dimensions are documented elsewhere, with a decrease in size since the patient's last appoi ntment. Neuro oriented x3, CN's II-XII intact bilaterally, moves all extremities and no focal motor deficits Sensorium / Orientation: awake, alert, oriented to person, oriented to place and oriented to time Psych Appearance: grossly normal and appropriate Attitude: calm Activity / Motor Behavior: appropriate eye contact Speech: normal speech Mood & Affect: euthymic mood Thought Process: normal thought process Thought Content: normal thought content Attention / Concentration: attention grossly intact Debridement Note Debridement Note Wound debrided: Left medial malleolus, clustered ulceration Laterality: Left Type of Debridement: Excisional debridement Anesthesia Used: 5% Lidocaine Gel and Cetacaine Depth: Down to and including healthy tissue and in the subcutaneous layer Percentage of wound debrided: 100 Instrument Used: 3mm curette Severity: Fat Layer Exposed Amount of bleeding with debridement: Mild Bleeding Controlled with: Compression and gauze Patient tolerated procedure: Patient tolerated procedure well Post-Debridement Measurements and Additional Note: Post-Debridement Measurements/Treatment MOSES - Nurse 1 - General Ulcer Assessment Start: 12/04/22 09:14 Freq: Status: Active Protocol: LYLE Activity Type Activity Date Activity User E-sign Co-sign Detail Recorded Client Recorded Date Recorded By Document 12/04/22 09:14 MW [id number] 12/04/22 09:37 MW Document 12/11/22 08:03 [facility] [id number] 12/11/22 08:07 [facility] 12/04/22 12/11/22 09:14 08:03 - Today's Visit Information Type of service Initial Visit Follow-up Visit (Physician/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 II ENGRAVER ) Arrival Mode Ambulatory Ambulatory Transfer Assistance None None Accompanied by significant other Patient Identification Verified (Name & Yes Yes ) Patient Requires Transmission-Based No No Precautions Safety Precautions NA Height and Weight Height 5 ft 10.5 in Weight 285 lb Weight in Pounds 285.0 lbs Body Mass Index (BMI) 40.3 40.3 BMI Classification Obese Obese BSA - Anastacia 2.44 Vital Signs Temperature (97.8 F-99.1 F) 97.0 F L 97.2 F L Temperature Source Temporal Temporal Pulse Rate (60-100) 61 79 Pulse Location Monitor Monitor Respiratory Rate (12-18) 16 16 Respiratory rate source Observation Observation Oxygen Delivery Method Room Air Room Air Blood Pressure (90/60-120/80) 189/112 H 173/106 H Blood Pressure Mean 137 128 Source Monitor Monitor Position Sitting Sitting Blood Pressure Location Right Arm Left Arm Comment pt has been seeing pcp for bp History Since Last Visit- (Skip if this is Patient's initial visit) Have you changed medications since your No last visit? Any new allergies or adverse reactions No Had a fall/change in ADL's that may No increase risk of falls Signs or symptoms of abuse and/or No neglect since last visit Have you been in the hospital since your No last visit? Has dressing in place as prescribed Yes Has compression in place as prescribed Yes Has offloadiing in place as prescribed N/A Experienced any changes in pain level or No management Left Footwear Regular Shoe Regular Shoe Right Footwear Regular Shoe Regular Shoe Pain Scale: 0-10 Numeric Is Patient Pain Free? Yes Yes Lower Extremity Assessment/ Foot Assessment/ Toe Nail Assessment Right -Posterior Tibial Palpable Yes -Posterior Tibial Doppler Multiphasic -Dorsalis Pedis Palpable Yes -Dorsalis Pedis Doppler Multiphasic -Extremity Color Hemosiderin -Hair Growth on Legs No -Hair Growth on Toes No -Temperature of Extremity Warm -Dependent Rubor No -Lipodermatosclerosis No -Other Deformity No -Prior Foot Ulcer No -Charcot Joint No -Prior Amputation No -Thick Yes -Discolored Yes -Deformed No -Improper Length & Hygeine Yes Left -Posterior Tibial Palpable Yes -Posterior Tibial Doppler Multiphasic -Dorsalis Pedis Palpable Yes -Dorsalis Pedis Doppler Multiphasic -Extremity Color Hemosiderin -Hair Growth on Legs No -Hair Growth on Toes No -Temperature of Extremity Warm -Capillary Refill Less than 3 Seconds -Dependent Rubor No -Lipodermatosclerosis No -Other Deformity No -Prior Foot Ulcer No -Charcot Joint No -Prior Amputation No -Thick Yes -Discolored Yes -Deformed No -Improper Length & Hygeine Yes Neuropathy Assessment Feet - Top Side and Bottom <Entered> (a) Communication Assessment Preferred language Malay Battery Inspector Required No Able to Read Yes Able to Write Yes Communication Tools None Caregiver Communication Skills No Impairment Impairment Right Hearing Abillity Normal Left Hearing Abillity Normal Visual Assistive Devices Glasses Teaching Assessment Preferences Verbal,Written, Audio/Visual, Demonstration Barriers to Learning None Readiness To Learn Excellent Willingness to Engage in Self Management High Activies Readiness to Engage in Self Management High Activities Anxiety Level Calm Cooperation Cooperative Perception Coherent Interest in Health Problem Asks Questions Education Importance Acknowledges Need Does Patient Smoke tobacco or other Yes substances Smoking Status Current every day smoker Is Patient Diabetic No Functional Assessment Recent Decline in Ability to Perform Denies Any Declines Assistive Device With Patient No Culture/Moravian/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 Data Warehouse Specialist to contact place of roman catholic No Teaching: Wound Center *Welcome to the Wound Center -Person Taught Patient -Teaching Method Discussion -Response to teaching Verbalize understanding (a) 1 - + WC - Nurse 1 - General Ulcer Measurement Start: 12/04/22 09:14 Freq: Status: Active Protocol: Activity Type Activity Date Activity User E-sign Co-sign Detail Recorded Client Recorded Date Recorded By Document 12/04/22 09:14 MW [id number] 12/04/22 09:37 MW Document 12/11/22 08:03 [facility] [id number] 12/11/22 08:07 BM 12/04/22 12/11/22 09:14 08:03 Wound Center Nurse 1 #1 left medial ankle -Combined with other wound No No -Current Size (cm) - Length 4.5 4.3 -Current Size (cm) - Width 5.0 3 -Current Size (cm) - Depth 0.1 0.2 -Total Square Cm 22.50 12.9 -Date of Last Picture (Recall this 12/04/22 12/11/22 field) -Photo Taken Yes Yes -Epithelialization None Present None Present -Tunneling No No -Undermining/Tunneling No No -Circular Undermining No No -Exudate Amt Large Medium -Exudate Type Serosanguineous Serosanguineous -Wound Margin Flat & Intact Distinct, Outline Attached -Granulation Amt None Present (0 Small (1-33%) %) -Granulation Quality N/A -Slough/Fibrin Yes Yes -Necrosis Amt Large (67-100%) Large (67-100%) -Necrotic Tissue Type Adherent Slough -Structure Exposed N/A -Texture ([place]-wound Skin Appearance) Assessed, Assessed, Localized Edema Scarring -Moisture ([place]-wound Skin Appearance) No Abnormality, Assessed,Dry/ Assessed Scaly -Color ([place]nn-wound Skin Appearance) Assessed, Assessed, Hemosiderin Hemosiderin Staining Staining -Temperature ([place]-wound Skin No Abnormality No Abnormality Appearance) (Pt Warm) (Pt Warm) -Tenderness on Palpation ([place]nn-wound No No Skin Appearance) -Ulcer Cleansing Rinsed/ Soap and Water Irrigated with Saline -Foul Odor after Cleansing No No -Anesthetic Used 5% Lidocaine 5% Lidocaine Gel Gel Lower Limb Edema Present Yes Yes Right Calf (cm) 44.5 42 Right Ankle (cm) 29.0 26.6 Left Calf (cm) 48.5 43 Left Ankle (cm) 30.5 27.6 WC - Nurse 2 - General Ulcer CM Notes Start: 12/04/22 09:14 Freq: Status: Active Protocol: Activity Type Activity Date Activity User E-sign Co-sign Detail Recorded Client Recorded Date Recorded By Document 12/04/22 11:34 PL [id number] 12/04/22 11:36 PL 12/04/22 11:34 Wound Center Nurse 2 #1 left medial ankle -Time 10:03 -Correct Patient Yes -Correct Side, Site, Position Yes -Correct Procedure Yes -Procedure Performed Yes -Type of Procedure Debridement -Clinical Debridement Subcutaneous -Tissue Removed Subcutaneous -Post Debridement (cm) - Length 4.5 -Post Debridement (cm) - Width 5.0 -Post Debridement (cm) - Depth 0.1 -Total Square (Post) (cm) 22.50 -Area of Debridement (cm) - Length 4.5 -Area of Debridement (cm) - Width 5.0 -Total Square (Area) (cm) 22.50 -Tunneling No -Undermining/Tunneling No -Circular Undermining No -Wound/Ulcer Outcome Not Healed -Ulcer Cleansing Rinsed/ Irrigated with Saline -Foul Odor after Cleansing No -Bioengineered Tissue No -Bleeding Controlled with Pressure -Treatment Response Procedure Tolerated Well -Debridement - Subq, 1st 20sq cm Yes -Debridement, SubQ, ea addt'l 20sq cm 1 or part thereof Pain Scale: 0-10 Numeric Is Patient Pain Free? Yes - Nurse 3 - General Ulcer D/C NN Start: 12/04/22 09:14 Freq: Status: Active Protocol: Activity Type Activity Date Activity User E-sign Co-sign Detail Recorded Client Recorded Date Recorded By Document 12/04/22 10:59 MW [id number] 12/04/22 11:01 MW Document 12/11/22 08:53 DL [id number] 12/11/22 08:55 DL 12/04/22 12/11/22 10:59 08:53 Wound Care Center Nurse 3 #1 left medial ankle -Ulcer Cleansing Rinsed/ Rinsed/ Irrigated with Irrigated with Saline Saline -Foul Odor after Cleansing No No -Negative Pressure Wound Therapy N/A -Primary Dressing Applied Optilok 6.5x10, Optilok 6.5x10, Promogran Promogran -Primary Dressing Covered/Secured with Dry Gauze & Roll Gauze, Secured with Tape -Other Covering unna boot -Optilok 6.5x10 1 1 -Promogran 1 1 Left -Lotion applied to leg before No compression wrap -Multi-Layered Wrap Application Unna Boot - Unna Boot - Left ($) Left ($) Treatment Response Procedure Procedure Tolerated Well Tolerated Well Pain Scale: 0-10 Numeric Is Patient Pain Free? Yes Yes Teaching: Wound Center Compression Wraps & Stockings -Person Taught Patient, Significant Other -Teaching Method Discussion -Response to teaching Verbalize understanding Control Swelling with Leg Elevation -Person Taught Patient, Significant Other -Teaching Method Discussion -Response to teaching Verbalize understanding Dressing Your Wound -Person Taught Patient, Significant Other -Teaching Method Discussion -Response to teaching Verbalize understanding WC - Visit Discharge Discharge Condition Stable Stable Ambulatory Status Ambulatory Ambulatory Transportation Private Auto Private Auto Accompanied by significant other Medication Reconcilliation completed & No provided to patient/care provider Clinical Summary of Care Provided Yes Notes: Vasc test ordered. Assessment/Plan Assessment/Plan (1) Venous stasis ulcer of ankle with fat layer exposed: CODE(S): I83.003 - Varicose veins of unspecified lower extremity with ulcer of ankle; L97.302 - 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 (2) Chronic venous hypertension w/ulcer and inflammation involv left side: CODE(S): I87.332 - Chronic venous hypertension (idiopathic) with ulcer and inflammation of left lower extremity; L97.929 - Non-pressure chronic ulcer of unspecified part of left lower leg with unspecified severity (3) Chronic venous insufficiency: CODE(S): I87.2 - Venous insufficiency (chronic) (peripheral) (4) Lipodermatosclerosis: CODE(S): I83.10 - Varicose veins of unspecified lower extremity with inflammation (5) Left leg swelling: CODE(S): M79.89 - Other specified soft tissue disorders (6) Leg edema, left: CODE(S): R60.0 - Localized edema (7) Hypertension: CODE(S): I10 - Essential (primary) hypertension (8) Tobacco abuse disorder: CODE(S): Z72.0 - Tobacco use (9) Tobacco abuse counseling: CODE(S): Z71.6 - Tobacco abuse counseling (10) History of seizures: CODE(S): Z87.898 - Personal history of other specified conditions (11) History of hemorrhoidectomy: CODE(S): Z98.890 - Other specified postprocedural states (12) History of hand surgery: CODE(S): Z98.890 - Other specified postprocedural states PLAN: Plan This is a 62-year-old obese male who presented with an ulceration overlying the left medial malleolus. This appears to be related to chronic venous hypertension with inflammation and chronic venous insufficiency. The patient also experiences swelling and edema in his lower extremities, more pronounced at the end of the day. A lengthy discussion has been undertaken as to the appropriate means of management relative to the patient's chronic venous disease. Leg elevation has been recommended. The patient has been encouraged to sleep on a flat surface at night. His legs are to be at heart level, or higher, both while sleeping and during daytime hours. Prolonged idle sitting with his legs in a dependent position has been discouraged. Activity has been encouraged, with recruitment of the calf and foot muscle pumps. Weight loss has also been recommended. We are to continue compression to the left lower extremity by means of an Unna boot, which will be applied twice weekly. We are to use Promogran topically to the ulceration. The patient is to return in 1 week for reassessment. Recent laboratory results from November 19, 2022, have been reviewed, with results as follows: White blood count 7.4, hemoglobin 17.3, hematocrit 49.8, platelets 215,000, sodium 137, potassium 4.0, chloride 106, creatinine 0.99, BUN 18, glucose 90, calcium 8.6. A venous duplex examination performed on November 19, 2022, was negative for evidence of deep vein thrombosis. An x-ray on that date revealed no evidence of osteomyelitis of the ankle. We are to obtain a complete venous duplex ultrasound examination, assessing the valvular competence in the deep and superficial venous systems. We will also obtain a noninvasive lower extremity arterial study. Nutritional optimization has been recommended. The patient has been advised to cease his smoking habit. Finally, patient's blood pressure has been noted to be extremely high. This matter has been discussed with the patient at the bedside, with explanation as to the potential hazards of untreated hypertension. The patient has been strongly encouraged to follow-up without delay with his primary care physician. Total time: 29 minutes
--- NOTE | 2022-12-13 08:03 | VDLE_ITS ---
Reason For Study: Non-Healing Wound RIGHT LEFT CFV is compressible, spontaneous, phasic, CFV is compressible, spontaneous, phasic, competent and demonstrates normal competent, and demonstrates normal augmentation. augmentation. FV is compressible, spontaneous, phasic, FV is compressible, spontaneous, phasic, competent and demonstrates normal competent and demonstrates normal augmentation. augmentation. POP V is compressible, spontaneous, phasic, POP V is compressible, spontaneous, phasic, competent and demonstrates normal competent and demonstrates normal augmentation. augmentation. T/P Trunk is compressible. T/P Trunk is compressible. PTV is compressible. PTV is compressible. RT PerV is compressible. LT PerV is compressible. Thrombus noted within GSV at mid thigh and SFJ is competent and measures 0.81 x 0.78 cm. extending into an accessory branch at mid GSV proximal thigh measures 0.59 x 0.58 cm. calf. GSV above knee is competent. SSV proximal calf is competent and measures GSV at knee measures 0.72 x 0.81 cm. 0.35 x 0.37 cm. GSV below knee is INCOMPETENT for greater Procedure than 0.5 seconds. This is a venous duplex using B-mode, color SSV proximal calf is competent and measures flow and spectral Doppler. 0.34 x 0.38 cm. Exam performed in department. The exam was diagnostic. The study was technically limited. A preliminary report was called and/or faxed to Wound Center RN. VL/Venous Duplex US - [place] Extrem Interpretation Summary Deep veins of the lower extremities are bilaterally patent and compressible seg mentally. There is no evidence of deep vein thrombosis on either side. Valvular competence appears in tact within the proximal deep venous systems bilaterally. Acute superficial thrombophlebitis is noted in the right great saphenous vein from the mid-thigh and extending distally to the knee, wit h extension into an accessory branch to mid-calf level. The left great saphenous vein appears paten t and compressible segmentally. The left sapheno-femoral junction is competent . The left great sa phenous vein appears competent above the knee. The left great saphenous vein appears incompetent bel ow the knee. Small saphenous veins are patent and competent bilaterally. Ordering Physician: Edgar Gonzales Referring Physician: Edgar Gonzales Performed By: Domenic Suggs RVT
[2022-12-13 09:45] VITALS: BP 143/92; PULSE 70; RESP 16; TEMP 36.2; BMI 40.3
[2022-12-13 10:17] LABS: ALB/GLOB Ratio 0.9 RATIO (0.9-2.4); AST(SGOT) 20 U/L (15-37); Alanine Aminotransfer ALT/SGPT 40 U/L (16-61); Albumin, Serum 3.6 g/dL (3.2-5.0); Alkaline Phosphatase 97 U/L (45-117); Anion Gap 8 (5-15); BUN 20 mg/dL (7-18); BUN/Creat Ratio 16.3 RATIO (10-20); Calcium,Total 8.9 mg/dL (8.5-10.1); Chloride 103 mmol/L (98-107); Cholesterol 175 mg/dL (200); Creatinine, Serum 1.23 mg/dL (0.70-1.30); EST Glomerular Filtration Rate 64 mL/min (>60); Est Glom Filt Rate - Afr Amer 77 mL/min (>60); Glucose 97 mg/dL (74-106); High Density Lipoprotein 42 mg/dL; Potassium 4.4 mmol/L (3.5-5.1); Protein, Total 7.6 g/dL (6.4-8.2); Sodium Level 140 mmol/L (136-145); Triglycerides 184 mg/dL; Very Low Density Lipoprotein 37 mg/dL (5-40)
[2022-12-18 08:17] VITALS: BP 169/95; PULSE 71; TEMP 36.2; BMI 40.3
--- NOTE | 2022-12-18 14:36 | PCM.WC.HP ---
History of Present Illness Date of Service: 12/18/22 Chief Complaint: Venous stasis ulceration, chronic venous hypertension with inflammation and ulceration, leg swelling, leg edema?left lower extremity History of Wound: This is a 62-year-old obese male who presented with an ulceration overlying the left medial malleolus. According to the patient and his significant-other female friend, the ulceration had been present for more than 2 years. The patient feels as though it is due to a foreign body which became stuck between his boot and skin causing a pressure ulceration. However, from a clinical standpoint, it is much more likely that this is related to chronic venous hypertension and associated venous disease. The patient relates swelling and edema in his lower extremities, which is worse at the end of each day. 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 He also sleeps in a recliner, although he insists that his lower extremities are at heart level, or higher. He is not very active during his time at home, often sitting for prolonged periods. The patient is a smoker, smoking 1 pack of cigarettes per day for many years. Appropriate counseling has been undertaken as to the adverse effects of tobacco use. With respect to his ulceration, he was initially placed on oral Augmentin in the Emergency Department for cellulitis, and completed a course of doxycycline more recently, as prescribed by his primary care physician. The patient denies a history of deep vein thrombosis. The patient suffers from hypertension and obesity. His BMI is 40.3. The patient's history is negative for myocardial infarction, cerebrovascular accident, diabetes mellitus, pulmonary disease, renal disease, thyroid disease, and hyperlipidemia. [facility] Medical History Chronic venous hypertension w/ulcer and inflammation involv left side Chronic venous insufficiency DVT (deep venous thrombosis) Hx of hypoglycemia Hx of migraines Hx of seasonal allergies Hypertension Lipodermatosclerosis Seizures Venous stasis ulcer of ankle with fat layer exposed Wears glasses Home Medications amlodipine 5 mg tablet 5 mg PO DAILY #30 tabs 11/19/22 [Rx Last Taken Unknown] blood pressure monitor #1 ea 12/12/22 [Rx Last Taken Unknown] furosemide 20 mg tablet 20 mg PO DAILY #30 tabs 12/12/22 [Rx Last Taken Unknown] hydroxyzine HCl 25 mg tablet 25 mg PO QHS #5 tabs 12/12/22 [Rx Last Taken Unknown] ibuprofen 800 mg tablet 800 mg PO BID PRN 12/12/22 [History Last Taken Unknown] lisinopril 20 mg tablet 20 mg PO DAILY #30 tabs 12/12/22 [Rx Last Taken Unknown] nicotine (polacrilex) 4 mg buccal lozenge 4 mg buccal Q4H PRN nicotine cravings #108 ea 12/12/22 [Rx Last Taken Unknown] nicotine 21 mg/24 hr daily transdermal patch (Nicoderm CQ) 1 patch transdermal DAILY #28 ea 12/12/22 [Rx Last Taken Unknown] escitalopram oxalate 10 mg tablet (Lexapro) 30 mg PO DAILY 12/13/22 [History Last Taken Unknown] Allergy/AdvReac Type Severity Reaction Status Date / Time No Known Allergies Allergy Verified 12/12/22 08:56 Family History Father Angina at rest Anxiety Diabetes Myocardial infarction Heart disease Hypertension Hyperlipidemia Respiratory disease Cancer esophageal Mother Cancer lung Depression Hormone disorder Seizures Osteoporosis Brother Myocardial infarction Hyperlipidemia Surgical History H/O foot surgery History of hemorrhoidectomy History of nasal surgery Hx of hand surgery Social History household members: significant other housing: house current occupational status: employed current occupation: [employer] sexually active: Yes Smoking Status: Current every day smoker tobacco type: cigarettes quit status: considering quitting alcohol intake: current alcohol intake frequency: holidays/special occasions only substance use type: marijuana what type of physical activity do you participate in: walking and additional details: lifting frequency: 5-6 times per week seatbelt use: always do you feel safe at home: Yes Vital Signs Vital Signs Vital Signs: 12/18/22 08:17 Temperature 97.2 F L Temperature Source Temporal Pulse Rate 71 Blood Pressure 169/95 H Blood Pressure Mean 119 Blood Pressure Source Monitor Weight Weight: 285 lb Body Mass Index (BMI) 40.3 Physical Exam Const alert, oriented x3, no apparent distress and well nourished Constitutional Narrative: The patient is obese. He is friendly and conversant. General Appearance: cooperative, comfortable, well kempt and well developed Orientation / Consciousness: awake, oriented to person, oriented to place and oriented to time Exam Limitations: no limitations HEENT normocephalic, head/scalp atraumatic and hearing grossly normal bilaterally Head and Scalp: normal to inspection, normocephalic and atraumatic External Ear: external ears normal Eyes PERRL and EOMs intact bilaterally General Eye: normal appearance of both eyes Neck full ROM Resp normal respiratory effort, normal air movement, no retractions and no use of accessory muscles Effort and Inspection: able to speak in complete sentences Extremity no calf tenderness General Extremity: Negative for clubbing or cyanosis Skin Wound Narrative: A clustered ulceration is noted overlying the left medial malleolus. The ulceration has diminished in size since the patient was last seen and evaluated. There is a small amount of bioburden and nonviable tissue present. There is no obvious sign of infection or cellulitis. Mild swelling and edema is noted in the lower extremities bilaterally, though significantly improved over the last several weeks. Hyperpigmentation and lipodermatosclerosis are noted in the gaiter areas bilaterally, more pronounced in the left lower extremity. Ulcer dimensions are documented elsewhere, with a decrease in size since the patient's last appointment. Neuro oriented x3, CN's II-XII intact bilaterally, moves all extremities and no focal motor deficits Sensorium / Orientation: awake, alert, oriented to person, oriented to place and oriented to time Psych Appearance: grossly normal and appropriate Attitude: calm Activity / Motor Behavior: appropriate eye contact Speech: normal speech Mood & Affect: euthymic mood Thought Process: normal thought process Thought Content: normal thought content Attention / Concentration: attention grossly intact Debridement Note Debridement Note Wound debrided: Left medial malleolus, clustered ulceration Laterality: Left Type of Debridement: Excisional debridement Anesthesia Used: 5% Lidocaine Gel and Cetacaine Depth: Down to and including healthy tissue and in the subcutaneous layer Percentage of wound debrided: 100 Instrument Used: 3mm curette Severity: Fat Layer Exposed Amount of bleeding with debridement: Mild Bleeding Controlled with: Compression and gauze Patient tolerated procedure: Patient tolerated procedure well Post-Debridement Measurements and Additional Note: Post-Debridement Measurements/Treatment MOSES - Nurse 1 - General Ulcer Assessment Start: 12/04/22 09:14 Freq: Status: Active Protocol: LYLE Activity Type Activity Date Activity User E-sign Co-sign Detail Recorded Client Recorded Date Recorded By Document 12/04/22 09:14 [id number] 12/04/22 09:37 Document 12/11/22 08:03 [facility] [id number] 12/11/22 08:07 [facility] Document 12/13/22 09:45 BM [id number] 12/13/22 11:12 [facility] Document 12/18/22 08:17 AK [id number] 12/18/22 08:22 AK 12/04/22 12/11/22 12/13/22 09:14 08:03 09:45 WC - Today's Visit Information Type of service Initial Visit Follow-up Visit Nurse-only (Physician/SHEET METAL WORK FURNACE INSTALLER Visit ) Arrival Mode Ambulatory Ambulatory Ambulatory Transfer Assistance None None None Accompanied by significant and other daughter Patient Identification Verified (Name & Yes Yes Yes ) Patient Requires Transmission-Based No No No Precautions Safety Precautions NA Height and Weight Height 5 ft 10.5 in Weight 285 lb Weight in Pounds 285.0 lbs Weight Measurement Method Estimated by Patient Body Mass Index (BMI) 40.3 40.3 40.3 BMI Classification Obese Obese Obese BSA - Anastacia 2.44 Vital Signs Temperature (97.8 F-99.1 F) 97.0 F L 97.2 F L 97.1 F L Temperature Source Temporal Temporal Temporal Pulse Rate (60-100) 61 79 70 Pulse Location Monitor Monitor Monitor Respiratory Rate (12-18) 16 16 16 Respiratory rate source Observation Observation Observation Oxygen Delivery Method Room Air Room Air Room Air Blood Pressure (90/60-120/80) 189/112 H 173/106 H 143/92 H Blood Pressure Mean 137 128 109 Source Monitor Monitor Monitor Position Sitting Sitting Sitting Blood Pressure Location Right Arm Left Arm Left Arm Comment pt has been seeing pcp for bp History Since Last Visit- (Skip if this is Patient's initial visit) Have you changed medications since your No Yes last visit? Any new allergies or adverse reactions No No Had a fall/change in ADL's that may No No increase risk of falls Signs or symptoms of abuse and/or No No neglect since last visit Have you been in the hospital since your No No last visit? Has dressing in place as prescribed Yes Yes Has compression in place as prescribed Yes Yes Has offloadiing in place as prescribed N/A N/A Experienced any changes in pain level or No No management Left Footwear Regular Shoe Regular Shoe Regular Shoe Right Footwear Regular Shoe Regular Shoe Regular Shoe Pain Scale: 0-10 Numeric Is Patient Pain Free? Yes Yes Yes Lower Extremity Assessment/ Foot Assessment/ Toe Nail Assessment Right -Posterior Tibial Palpable Yes -Posterior Tibial Doppler Multiphasic -Dorsalis Pedis Palpable Yes -Dorsalis Pedis Doppler Multiphasic -Extremity Color Hemosiderin -Hair Growth on Legs No -Hair Growth on Toes No -Temperature of Extremity Warm -Dependent Rubor No -Lipodermatosclerosis No -Other Deformity No -Prior Foot Ulcer No -Charcot Joint No -Prior Amputation No -Thick Yes -Discolored Yes -Deformed No -Improper Length & Hygeine Yes Left -Posterior Tibial Palpable Yes -Posterior Tibial Doppler Multiphasic -Dorsalis Pedis Palpable Yes -Dorsalis Pedis Doppler Multiphasic -Extremity Color Hemosiderin -Hair Growth on Legs No -Hair Growth on Toes No -Temperature of Extremity Warm -Capillary Refill Less than 3 Seconds -Dependent Rubor No -Lipodermatosclerosis No -Other Deformity No -Prior Foot Ulcer No -Charcot Joint No -Prior Amputation No -Thick Yes -Discolored Yes -Deformed No -Improper Length & Hygeine Yes Neuropathy Assessment Feet - Top Side and Bottom <Entered> (a) Communication Assessment Preferred language Afghan Poultry Processing Supervisor Required No Able to Read Yes Able to Write Yes Communication Tools None Caregiver Communication Skills No Impairment Impairment Right Hearing Abillity Normal Left Hearing Abillity Normal Visual Assistive Devices Glasses Teaching Assessment Preferences Verbal,Written, Audio/Visual, Demonstration Barriers to Learning None Readiness To Learn Excellent Willingness to Engage in Self Management High Activies Readiness to Engage in Self Management High Activities Anxiety Level Calm Cooperation Cooperative Perception Coherent Interest in Health Problem Asks Questions Education Importance Acknowledges Need Does Patient Smoke tobacco or other Yes substances Smoking Status Current every day smoker Is Patient Diabetic No Functional Assessment Recent Decline in Ability to Perform Denies Any Declines Assistive Device With Patient No Culture/Confucianism/Maid Supervisor Cultural/Confucianism Needs that may affect No Treatment Plan Would you allow our hospital outside solar sales consultant to No meet you for the purpose of spiritual/ emotional support? Maid Supervisor to contact place of yazdanism No Teaching: Wound Center *Welcome to the Wound Center -Person Taught Patient -Teaching Method Discussion -Response to teaching Verbalize understanding 01/31/23 08:17 WC - Today's Visit Information Type of service Follow-up Visit (Physician/SHEET METAL WORK FURNACE INSTALLER ) Arrival Mode Ambulatory Transfer Assistance Accompanied by Patient Identification Verified (Name & Yes ) Patient Requires Transmission-Based No Precautions Safety Precautions Height and Weight Height Weight Weight in Pounds Weight Measurement Method Body Mass Index (BMI) 40.3 BMI Classification Obese BSA - Anastacia Vital Signs Temperature (97.8 F-99.1 F) 97.2 F L Temperature Source Temporal Pulse Rate (60-100) 71 Pulse Location Monitor Respiratory Rate (12-18) Respiratory rate source Oxygen Delivery Method Blood Pressure (90/60-120/80) 169/95 H Blood Pressure Mean 119 Source Monitor Position Blood Pressure Location Comment History Since Last Visit- (Skip if this is Patient's initial visit) Have you changed medications since your No last visit? Any new allergies or adverse reactions No Had a fall/change in ADL's that may No increase risk of falls Signs or symptoms of abuse and/or No neglect since last visit Have you been in the hospital since your No last visit? Has dressing in place as prescribed Yes Has compression in place as prescribed Yes Has offloadiing in place as prescribed N/A Experienced any changes in pain level or No management Left Footwear Regular Shoe Right Footwear Regular Shoe Pain Scale: 0-10 Numeric Is Patient Pain Free? Yes Lower Extremity Assessment/ Foot Assessment/ Toe Nail Assessment Right -Posterior Tibial Palpable -Posterior Tibial Doppler -Dorsalis Pedis Palpable -Dorsalis Pedis Doppler -Extremity Color -Hair Growth on Legs -Hair Growth on Toes -Temperature of Extremity -Dependent Rubor -Lipodermatosclerosis -Other Deformity -Prior Foot Ulcer -Charcot Joint -Prior Amputation -Thick -Discolored -Deformed -Improper Length & Hygeine Left -Posterior Tibial Palpable -Posterior Tibial Doppler -Dorsalis Pedis Palpable -Dorsalis Pedis Doppler -Extremity Color -Hair Growth on Legs -Hair Growth on Toes -Temperature of Extremity -Capillary Refill -Dependent Rubor -Lipodermatosclerosis -Other Deformity -Prior Foot Ulcer -Charcot Joint -Prior Amputation -Thick -Discolored -Deformed -Improper Length & Hygeine Neuropathy Assessment Feet - Top Side and Bottom Communication Assessment Preferred ice cream dispenser Required Able to Read Able to Write Communication Tools Caregiver Communication Skills Impairment Right Hearing Abillity Left Hearing Abillity Visual Assistive Devices Teaching Assessment Preferences Barriers to Learning Readiness To Learn Willingness to Engage in Self Management Activies Readiness to Engage in Self Management Activities Anxiety Level Cooperation Perception Interest in Health Problem Education Importance Does Patient Smoke tobacco or other substances Smoking Status Is Patient Diabetic Functional Assessment Recent Decline in Ability to Perform Assistive Device With Patient Culture/Confucianism/Maid Supervisor Cultural/Confucianism Needs that may affect Treatment Plan Would you allow our hospital outside solar sales consultant to meet you for the purpose of spiritual/ emotional support? Maid Supervisor to contact place of yazdanism Teaching: Wound Center *Welcome to the Wound Center -Person Taught -Teaching Method -Response to teaching (a) 1 - + WC - Nurse 1 - General Ulcer Measurement Start: 12/04/22 09:14 Freq: Status: Active Protocol: Activity Type Activity Date Activity User E-sign Co-sign Detail Recorded Client Recorded Date Recorded By Document 12/04/22 09:14 MW [id number] 12/04/22 09:37 MW Document 12/11/22 08:03 BM [id number] 12/11/22 08:07 BMF Document 12/13/22 09:45 [facility] [id number] 12/13/22 11:12 BM Document 12/18/22 08:17 AK [id number] 12/18/22 08:22 AK 12/04/22 12/11/22 12/13/22 09:14 08:03 09:45 Wound Center Nurse 1 #1 left medial ankle -Combined with other wound No No -Current Size (cm) - Length 4.5 4.3 -Current Size (cm) - Width 5.0 3 -Current Size (cm) - Depth 0.1 0.2 -Total Square Cm 22.50 12.9 -Date of Last Picture (Recall this 12/04/22 12/11/22 field) -Photo Taken Yes Yes -Epithelialization None Present None Present -Tunneling No No -Undermining/Tunneling No No -Circular Undermining No No -Change in Wound Grade/Stage -Exudate Amt Large Medium -Exudate Type Serosanguineous Serosanguineous -Wound Margin Flat & Intact Distinct, Outline Attached -Granulation Amt None Present (0 Small (1-33%) %) -Granulation Quality N/A -Slough/Fibrin Yes Yes -Necrosis Amt Large (67-100%) Large (67-100%) -Necrotic Tissue Type Adherent Slough -Structure Exposed N/A -Texture ([place]-wound Skin Appearance) Assessed, Assessed, Assessed, Localized Edema Scarring Scarring -Moisture ([place]-wound Skin Appearance) No Abnormality, Assessed,Dry/ Assessed,Dry/ Assessed Scaly Scaly -Color ([place]-wound Skin Appearance) Assessed, Assessed, Assessed, Hemosiderin Hemosiderin Hemosiderin Staining Staining Staining -Temperature ([place]-wound Skin No Abnormality No Abnormality Appearance) (Pt Warm) (Pt Warm) -Tenderness on Palpation ([place]-wound No No Skin Appearance) -Ulcer Cleansing Rinsed/ Soap and Water Soap and Water Irrigated with Saline -Foul Odor after Cleansing No No -Anesthetic Used 5% Lidocaine 5% Lidocaine Gel Gel Lower Limb Edema Present Yes Yes Yes Right Calf (cm) 44.5 42 42 Right Ankle (cm) 29.0 26.6 27 Left Calf (cm) 48.5 43 42 Left Ankle (cm) 30.5 27.6 27.5 12/18/22 08:17 Wound Center Nurse 1 #1 left medial ankle -Combined with other wound -Current Size (cm) - Length 4.5 -Current Size (cm) - Width 2.6 -Current Size (cm) - Depth 0.1 -Total Square Cm 11.70 -Date of Last Picture (Recall this 12/18/22 field) -Photo Taken Yes -Epithelialization -Tunneling No -Undermining/Tunneling No -Circular Undermining No -Change in Wound Grade/Stage No -Exudate Amt Medium -Exudate Type Serosanguineous -Wound Margin Distinct, Outline Attached -Granulation Amt Medium (34-66%) -Granulation Quality [place] -Slough/Fibrin Yes -Necrosis Amt Medium (34-66%) -Necrotic Tissue Type Adherent Slough -Structure Exposed N/A -Texture ([place]-wound Skin Appearance) No Abnormality, Assessed -Moisture ([place]-wound Skin Appearance) No Abnormality, Assessed -Color ([place]-wound Skin Appearance) No Abnormality, Assessed -Temperature ([place]-wound Skin No Abnormality Appearance) (Pt Warm) -Tenderness on Palpation ([place]-wound No Skin Appearance) -Ulcer Cleansing Rinsed/ Irrigated with Saline -Foul Odor after Cleansing No -Anesthetic Used 5% Lidocaine Gel Lower Limb Edema Present Right Calf (cm) Right Ankle (cm) Left Calf (cm) 43 Left Ankle (cm) 27.5 WC - Nurse 2 - General Ulcer CM Notes Start: 12/04/22 09:14 Freq: Status: Active Protocol: Activity Type Activity Date Activity User E-sign Co-sign Detail Recorded Client Recorded Date Recorded By Document 12/04/22 11:34 PL [id number] 12/04/22 11:36 PL Document 12/11/22 11:33 PL [id number] 12/11/22 11:34 PL Document 12/18/22 08:34 MW [id number] 12/18/22 08:45 MW 12/04/22 12/11/22 12/18/22 11:34 11:33 08:34 Wound Center Nurse 2 #1 left medial ankle -Time 10:03 08:34 08:36 -Correct Patient Yes Yes Yes -Correct Side, Site, Position Yes Yes Yes -Correct Procedure Yes Yes Yes -Procedure Performed Yes Yes Yes -Type of Procedure Debridement Debridement -Type of Procedure Debridement -Clinical Debridement Subcutaneous Subcutaneous Subcutaneous -Tissue Removed Subcutaneous Subcutaneous Subcutaneous -Post Debridement (cm) - Length 4.5 4.3 1.0 -Post Debridement (cm) - Width 5.0 3.0 0.4 -Post Debridement (cm) - Depth 0.1 0.2 0.1 -Total Square (Post) (cm) 22.50 12.90 0.40 -Area of Debridement (cm) - Length 4.5 4.3 1.0 -Area of Debridement (cm) - Width 5.0 3.0 0.4 -Total Square (Area) (cm) 22.50 12.90 0.40 -Tunneling No No No -Undermining/Tunneling No No No -Circular Undermining No No No -Wound/Ulcer Outcome Not Healed Not Healed Not Healed -Ulcer Cleansing Rinsed/ Rinsed/ Rinsed/ Irrigated with Irrigated with Irrigated with Saline Saline Saline -Foul Odor after Cleansing No No No -Bioengineered Tissue No No No -Bleeding Controlled with Pressure Pressure Pressure -Treatment Response Procedure Procedure Procedure Tolerated Well Tolerated Well Tolerated Well -Offloading No -Debridement - Subq, 1st 20sq cm Yes Yes Yes -Debridement, SubQ, ea addt'l 20sq cm 1 or part thereof Pain Scale: 0-10 Numeric Is Patient Pain Free? Yes Yes Yes WC - Nurse 3 - General Ulcer D/C NN Start: 12/04/22 09:14 Freq: Status: Active Protocol: Activity Type Activity Date Activity User E-sign Co-sign Detail Recorded Client Recorded Date Recorded By Document 12/04/22 10:59 MW [id number] 12/04/22 11:01 MW Document 12/11/22 08:53 DL [id number] 12/11/22 08:55 DL Document 12/13/22 09:45 BMF [id number] 12/13/22 11:12 BMF Document 12/18/22 08:49 BMF [id number] 12/18/22 08:51 BMF 12/04/22 12/11/22 12/13/22 10:59 08:53 09:45 Wound Care Center Nurse 3 #1 left medial ankle -Ulcer Cleansing Rinsed/ Rinsed/ Soap and Water Irrigated with Irrigated with Saline Saline -Foul Odor after Cleansing No No No -Negative Pressure Wound Therapy N/A -Primary Dressing Applied Optilok 6.5x10, Optilok 6.5x10, Promogran Promogran -Other Dressing promogran; abd -Primary Dressing Covered/Secured with Dry Gauze & Roll Gauze, Secured with Tape -Other Covering unna boot unna boot -Optilok 6.5x10 1 1 -Promogran 1 1 Left -Lotion applied to leg before No compression wrap -Multi-Layered Wrap Application Unna Boot - Unna Boot - Unna Boot - Left ($) Left ($) Left ($) -Other Treatment Response Procedure Procedure Procedure Tolerated Well Tolerated Well Tolerated Well Vital Signs Temperature (97.8 F-99.1 F) 97.1 F L Temperature Source Temporal Pulse Rate (60-100) 70 Pulse Location Monitor Respiratory Rate (12-18) 16 Respiratory rate source Observation Oxygen Delivery Method Room Air Blood Pressure (90/60-120/80) 143/92 H Blood Pressure Mean 109 Source Monitor Position Sitting Blood Pressure Location Left Arm Pain Scale: 0-10 Numeric Is Patient Pain Free? Yes Yes Yes Teaching: Wound Center Compression Wraps & Stockings -Person Taught Patient, Significant Other -Teaching Method Discussion -Response to teaching Verbalize understanding Control Swelling with Leg Elevation -Person Taught Patient, Significant Other -Teaching Method Discussion -Response to teaching Verbalize understanding Dressing Your Wound -Person Taught Patient, Significant Other -Teaching Method Discussion -Response to teaching Verbalize understanding WC - Visit Discharge Discharge Condition Stable Stable Stable Ambulatory Status Ambulatory Ambulatory Ambulatory Transportation Private Auto Private Auto Private Auto Accompanied by significant , daughter other Medication Reconcilliation completed & No provided to patient/care provider Clinical Summary of Care Provided Yes Notes: Vasc test PT JUST ordered. RETURNED FROM [facility]ULAR AND REPORTED CLOTS. WRITTEN REPORT NOT AVAILABLE IN [place] YET. THIS NURSE SPOKE W/ CM. PER DR BROOKS- SPOKE W/ VASC. OK TO APPLY UNNA TO LEFT PREV ORDERED AND HIGH COMPRESSION TUBI TO BE APPLIED TO RLE. PT UPDATED ON ALL. 12/18/22 08:49 Wound Care Center Nurse 3 #1 left medial ankle -Ulcer Cleansing Rinsed/ Irrigated with Saline -Foul Odor after Cleansing No -Negative Pressure Wound Therapy -Primary Dressing Applied -Other Dressing unna boot per ak motor racer -Primary Dressing Covered/Secured with -Other Covering -Optilok 6.5x10 -Promogran Left -Lotion applied to leg before compression wrap -Multi-Layered Wrap Application Unna Boot - Left ($) -Other per ak motor racer Treatment Response Procedure Tolerated Well Vital Signs Temperature (97.8 F-99.1 F) Temperature Source Pulse Rate (60-100) Pulse Location Respiratory Rate (12-18) Respiratory rate source Oxygen Delivery Method Blood Pressure (90/60-120/80) Blood Pressure Mean Source Position Blood Pressure Location Pain Scale: 0-10 Numeric Is Patient Pain Free? Yes Teaching: Wound Center Compression Wraps & Stockings -Person Taught -Teaching Method -Response to teaching Control Swelling with Leg Elevation -Person Taught -Teaching Method -Response to teaching Dressing Your Wound -Person Taught -Teaching Method -Response to teaching WC - Visit Discharge Discharge Condition Stable Ambulatory Status Ambulatory Transportation Private Auto Accompanied by Medication Reconcilliation completed & provided to patient/care provider Clinical Summary of Care Provided Notes: Lab / Micro Data Result Diagrams: 12/13/22 09:27 Assessment/Plan Assessment/Plan (1) Venous stasis ulcer of ankle with fat layer exposed: CODE(S): I83.003 - Varicose veins of unspecified lower extremity with ulcer of ankle; L97.302 - 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 (2) Chronic venous hypertension w/ulcer and inflammation involv left side: CODE(S): I87.332 - Chronic venous hypertension (idiopathic) with ulcer and inflammation of left lower extremity; L97.929 - Non-pressure chronic ulcer of unspecified part of left lower leg with unspecified severity (3) Chronic venous insufficiency: CODE(S): I87.2 - Venous insufficiency (chronic) (peripheral) (4) Lipodermatosclerosis: CODE(S): I83.10 - Varicose veins of unspecified lower extremity with inflammation (5) Left leg swelling: CODE(S): M79.89 - Other specified soft tissue disorders (6) Leg edema, left: CODE(S): R60.0 - Localized edema (7) Hypertension: CODE(S): I10 - Essential (primary) hypertension (8) Tobacco abuse disorder: CODE(S): Z72.0 - Tobacco use (9) Tobacco abuse counseling: CODE(S): Z71.6 - Tobacco abuse counseling (10) History of seizures: CODE(S): Z87.898 - Personal history of other specified conditions (11) History of hemorrhoidectomy: CODE(S): Z98.890 - Other specified postprocedural states (12) History of hand surgery: CODE(S): Z98.890 - Other specified postprocedural states PLAN: Plan This is a 62-year-old obese male who presented with an ulceration overlying the left medial malleolus. This appears to be related to chronic venous hypertension with inflammation and chronic venous insufficiency. The patient also experiences swelling and edema in his lower extremities, more pronounced at the end of the day. A lengthy discussion has been undertaken as to the appropriate means of management relative to the patient's chronic venous disease. Leg elevation has been recommended. The patient has been encouraged to sleep on a flat surface at night. His legs are to be at heart level, or higher, both while sleeping and during daytime hours. Prolonged idle sitting with his legs in a dependent position has been discouraged. Activity has been encouraged, with recruitment of the calf and foot muscle pumps. Weight loss has also been recommended. We are to continue compression to the left lower extremity by means of an Unna boot, which will be applied twice weekly. We are to use Promogran topically to the ulceration. The patient is to return in 1 week for reassessment. Recent laboratory results from December 13, 2022, have been reviewed, with results as follows: Glucose 97, BUN 20, creatinine 1.23, total protein 7.6, albumin 3.6, calcium 8.9, AST 20, alkaline phosphatase 97, ALT 40, total bilirubin 0.40, cholesterol 175, triglycerides 184, sodium 140, potassium 4.4, chloride 103, HDL 42, LDL 96, VLDL 37. A venous duplex examination recently performed revealed superficial thrombophlebitis involving the right great saphenous vein and an accessory branch. 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 Once again, the patient has been encouraged to elevate his lower extremities, remain active, avoid prolonged idle standing and sitting, and to lose weight. We are to provide the patient an excuse to remain off of work for another 2 weeks. Compression will be implemented by means of an Unna boot to the left lower extremity, which will be changed twice weekly. Promogran will be applied topically to the ulceration. There has been significant improvement within the last several weeks. Because of the finding of superficial thrombophlebitis, the noninvasive lower extremity arterial study, which have been ordered, was not performed. Nutritional optimization has been recommended. The patient has been advised to cease his smoking habit. Given the manifestations related to the patient's chronic venous disease, and findings on his recent venous duplex examination, it is felt that the patient may ultimately be a candidate for endovenous laser ablation of the left great saphenous vein, a matter which has been discussed with the patient and his significant other at the bedside. The patient is to return in 1 week for reassessment. Compression to the right lower extremity is to be implemented by means of a Tubigrip of 20 to 30 mmHg compression. Total time: 27 minutes
== END 2022-12-18 23:59 | disposition home or self-care (01) ==
LOC: WC 08:30
PROVIDERS: PCP Internal Medicine; Referring Provider Surgery; Visit Provider Surgery
DX: I83.223 Varicose veins of left lower extremity with both ulcer of ankle and inflammation (principal); L97.322 Non-pressure chronic ulcer of left ankle with fat layer exposed; Z68.41 Body mass index [BMI] 40.0-44.9, adult; M14.60 Charcot's joint, unspecified site; F17.210 Nicotine dependence, cigarettes, uncomplicated; R60.0 Localized edema; M79.89 Other specified soft tissue disorders; E66.9 Obesity, unspecified; Z79.899 Other long term (current) drug therapy; Z86.718 Personal history of other venous thrombosis and embolism; I10 Essential (primary) hypertension; Z87.891 Personal history of nicotine dependence
CPT/HCPCS: 11042; 11045; 29580; 36415; 80053; 80061; 93970; 99213; G0463

== ENCOUNTER 2023-01-15 08:00 | Outpatient (RCR) | payer BC, SELFPAY ==
[2022-12-19 00:44] VITALS: BP 169/95; PULSE 71; RESP 16; TEMP 36.2; BMI 40.3
[2022-12-20 08:15] VITALS: BP 156/92; PULSE 69; RESP 20; TEMP 35.8; BMI 40.3
[2022-12-25 08:32] VITALS: BP 150/101; PULSE 68; TEMP 35.7; BMI 40.3
--- NOTE | 2022-12-25 11:53 | HP.PCM_ITS ---
History of Present Illness Date of Service: 12/25/22 Chief Complaint: Venous stasis ulceration, chronic venous hypertension with inflammation and ulceration, leg swelling, leg edema?left lower extremity History of Wound: This is a 62-year-old obese male who presented with an ulceration overlying the left medial malleolus. According to the patient and his significant-other female friend, the ulceration had been present for more than 2 years. The patient feels as though it is due to a foreign body which became stuck between his boot and skin causing a pressure ulceration. However, from a clinical standpoint, it is much more likely that this is related to chronic venous hypertension and associated venous disease. The patient relates swelling and edema in his lower extremities, which is worse at the end of each day. 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 He also sleeps in a recliner, although he insists that his lower extremities are at heart level, or higher. He is not very active during his time at home, often sitting for prolonged periods. The patient is a smoker, smoking 1 pack of cigarettes per day for many years. Appropriate counseling has been undertaken as to the adverse effects of tobacco use. With respect to his ulceration, he was initially placed on oral Augmentin in the Emergency Department for cellulitis, and completed a course of doxycycline more recently, as prescribed by his primary care physician. The patient denies a history of deep vein thrombosis. The patient suffers from hypertension and obesity. His BMI is 40.3. The patient's history is negative for myocardial infarction, cerebrovascular accident, diabetes mellitus, pulmonary disease, renal disease, thyroid disease, and hyperlipidemia. FORMERLY [facility] Medical History Chronic venous hypertension w/ulcer and inflammation involv left side Chronic venous insufficiency DVT (deep venous thrombosis) Hx of hypoglycemia Hx of migraines Hx of seasonal allergies Hypertension Lipodermatosclerosis Seizures Venous stasis ulcer of ankle with fat layer exposed Wears glasses Home Medications amlodipine 5 mg tablet 5 mg PO DAILY #30 tabs 11/19/22 [Rx Last Taken Unknown] blood pressure monitor #1 ea 12/12/22 [Rx Last Taken Unknown] furosemide 20 mg tablet 20 mg PO DAILY #30 tabs 12/12/22 [Rx Last Taken Unknown] hydroxyzine HCl 25 mg tablet 25 mg PO QHS #5 tabs 12/12/22 [Rx Last Taken Unknown] ibuprofen 800 mg tablet 800 mg PO BID PRN 12/12/22 [History Last Taken Unknown] lisinopril 20 mg tablet 20 mg PO DAILY #30 tabs 12/12/22 [Rx Last Taken Unknown] nicotine (polacrilex) 4 mg buccal lozenge 4 mg buccal Q4H PRN nicotine cravings #108 ea 12/12/22 [Rx Last Taken Unknown] nicotine 21 mg/24 hr daily transdermal patch (Nicoderm CQ) 1 patch transdermal DAILY #28 ea 12/12/22 [Rx Last Taken Unknown] escitalopram oxalate 10 mg tablet (Lexapro) 30 mg PO DAILY 12/13/22 [History Last Taken Unknown] Allergy/AdvReac Type Severity Reaction Status Date / Time No Known Allergies Allergy Verified 12/12/22 08:56 Family History Father Angina at rest Anxiety Diabetes Myocardial infarction Heart disease Hypertension Hyperlipidemia Respiratory disease Cancer esophageal Mother Cancer lung Depression Hormone disorder Seizures Osteoporosis Brother Myocardial infarction Hyperlipidemia Surgical History H/O foot surgery History of hemorrhoidectomy History of nasal surgery Hx of hand surgery Social History household members: significant other housing: house current occupational status: employed current occupation: [employer] sexually active: Yes Smoking Status: Current every day smoker tobacco type: cigarettes quit status: considering quitting alcohol intake: current alcohol intake frequency: holidays/special occasions only substance use type: marijuana what type of physical activity do you participate in: walking and additional details: lifting frequency: 5-6 times per week seatbelt use: always do you feel safe at home: Yes Vital Signs Vital Signs Vital Signs: 12/25/22 08:32 Temperature 96.2 F L Temperature Source Temporal Pulse Rate 68 Blood Pressure 150/101 H Blood Pressure Mean 117 Blood Pressure Source Monitor Weight Weight: 285 lb Body Mass Index (BMI) 40.3 Physical Exam Const alert, oriented x3, no apparent distress and well nourished Constitutional Narrative: The patient is obese. He is friendly and conversant. General Appearance: cooperative, comfortable, well kempt and well developed Orientation / Consciousness: awake, oriented to person, oriented to place and oriented to time Exam Limitations: no limitations HEENT normocephalic, head/scalp atraumatic and hearing grossly normal bilaterally Head and Scalp: normal to inspection, normocephalic and atraumatic External Ear: external ears normal Eyes PERRL and EOMs intact bilaterally General Eye: normal appearance of both eyes Neck full ROM Resp normal respiratory effort, normal air movement, no retractions and no use of accessory muscles Effort and Inspection: able to speak in complete sentences Extremity no calf tenderness General Extremity: Negative for clubbing or cyanosis Skin Wound Narrative: A clustered ulceration is noted overlying the left medial malleolus. The ulceration has diminished in size since the patient was last seen and evaluated. There is a small amount of bioburden and nonviable tissue present. There is no obvious sign of infection or cellulitis. Swelling and edema appears to be well controlled, and minimal at this time. Hyperpigmentation and lipodermatosclerosis are noted in the gaiter areas bilaterally, more pronounced in the left lower extremity. Ulcer dimensions are documented elsewhere, with a decrease in size since the patient's last appointment. Neuro oriented x3, CN's II-XII intact bilaterally, moves all extremities and no focal motor deficits Sensorium / Orientation: awake, alert, oriented to person, oriented to place and oriented to time Psych Appearance: grossly normal and appropriate Attitude: calm Activity / Motor Behavior: appropriate eye contact Speech: normal speech Mood & Affect: euthymic mood Thought Process: normal thought process Thought Content: normal thought content Attention / Concentration: attention grossly intact Debridement Note Debridement Note No debridement was completed: No debridement was completed today Post-Debridement Measurements and Additional Note: Post-Debridement Measurements/Treatment - Nurse 1 - General Ulcer Assessment Start: 12/20/22 08:15 Freq: Status: Active Protocol: LYLE Activity Type Activity Date Activity User E-sign Co-sign Detail Recorded Client Recorded Date Recorded By Document 12/20/22 08:15 DL [id number] 12/20/22 08:20 DL Document 12/25/22 08:32 AK [id number] 12/25/22 08:41 AK 12/20/22 12/25/22 08:15 08:32 WC - Today's Visit Information Type of service Nurse-only Follow-up Visit Visit (Physician/PRODUCTION DISPATCHER ) Arrival Mode Ambulatory Ambulatory Patient Identification Verified (Name & Yes Yes ) Patient Requires Transmission-Based No No Precautions Height and Weight Body Mass Index (BMI) 40.3 40.3 BMI Classification Obese Obese Vital Signs Temperature (97.8 F-99.1 F) 96.5 F L 96.2 F L Temperature Source Temporal Temporal Pulse Rate (60-100) 69 68 Pulse Location Monitor Monitor Respiratory Rate (12-18) 20 H Respiratory rate source Observation Blood Pressure (90/60-120/80) 156/92 H 150/101 H Blood Pressure Mean 113 117 Source Monitor Monitor History Since Last Visit- (Skip if this is Patient's initial visit) Have you changed medications since your No No last visit? Any new allergies or adverse reactions No No Had a fall/change in ADL's that may No No increase risk of falls Signs or symptoms of abuse and/or No No neglect since last visit Have you been in the hospital since your No No last visit? Has dressing in place as prescribed Yes Yes Has compression in place as prescribed Yes Yes Has offloadiing in place as prescribed N/A N/A Experienced any changes in pain level or No No management Left Footwear Regular Shoe Right Footwear Regular Shoe Pain Scale: 0-10 Numeric Is Patient Pain Free? Yes Yes - Nurse 1 - General Ulcer Measurement Start: 12/20/22 08:15 Freq: Status: Active Protocol: Activity Type Activity Date Activity User E-sign Co-sign Detail Recorded Client Recorded Date Recorded By Document 12/20/22 08:15 DL [id number] 12/20/22 08:20 DL Document 12/25/22 08:32 AK [id number] 12/25/22 08:41 AK 12/20/22 12/25/22 08:15 08:32 Wound Center Nurse 1 #1 left medial ankle -Combined with other wound No -Current Size (cm) - Length 0.1 -Current Size (cm) - Width 0.1 -Current Size (cm) - Depth 0.1 -Total Square Cm 0.01 -Photo Taken Yes -Tunneling No -Undermining/Tunneling No -Circular Undermining No -Exudate Amt None Present -Granulation Amt None Present (0 %) -Granulation Quality N/A -Slough/Fibrin No -Necrosis Amt None Present (0 %) -Structure Exposed N/A N/A -Texture ([place]-wound Skin Appearance) Scarring No Abnormality, Assessed -Moisture ([place]-wound Skin Appearance) Dry/Scaly No Abnormality, Assessed -Color ([place]-wound Skin Appearance) Hemosiderin No Abnormality, Staining Assessed -Temperature ([place]-wound Skin No Abnormality No Abnormality Appearance) (Pt Warm) (Pt Warm) -Tenderness on Palpation ([place]-wound No No Skin Appearance) -Ulcer Cleansing Soap and Water Soap and Water -Foul Odor after Cleansing No No -Anesthetic Used 5% Lidocaine Gel Lower Limb Edema Present No Left Calf (cm) 42.5 41 Left Ankle (cm) 26.5 27 WC - Nurse 2 - General Ulcer CM Notes Start: 12/20/22 08:15 Freq: Status: Active Protocol: Activity Type Activity Date Activity User E-sign Co-sign Detail Recorded Client Recorded Date Recorded By Document 12/25/22 08:50 MW [id number] 12/25/22 08:56 MW 12/25/22 08:50 Wound Center Nurse 2 #1 left medial ankle -Time 08:50 -Correct Patient Yes -Correct Side, Site, Position Yes -Correct Procedure Yes -Procedure Performed No -Tunneling No -Undermining/Tunneling No -Circular Undermining No -Wound/Ulcer Outcome Not Healed Pain Scale: 0-10 Numeric Is Patient Pain Free? Yes WC - Nurse 3 - General Ulcer D/C NN Start: 12/20/22 08:15 Freq: Status: Active Protocol: Activity Type Activity Date Activity User E-sign Co-sign Detail Recorded Client Recorded Date Recorded By Document 12/20/22 08:15 DL [id number] 12/20/22 08:20 DL Document 12/25/22 09:14 DL [id number] 12/25/22 09:18 DL 12/20/22 12/25/22 08:15 09:14 Vital Signs Temperature (97.8 F-99.1 F) 96.5 F L Temperature Source Temporal Pulse Rate (60-100) 69 Pulse Location Monitor Respiratory Rate (12-18) 20 H Respiratory rate source Observation Blood Pressure (90/60-120/80) 156/92 H Blood Pressure Mean 113 Source Monitor Pain Scale: 0-10 Numeric Is Patient Pain Free? Yes Yes Wound Care Center Nurse 3 #1 left medial ankle -Ulcer Cleansing Soap and Water Rinsed/ Irrigated with Saline -Foul Odor after Cleansing No No -Other Dressing Unna Boot unna Right -Lotion applied to leg before No compression wrap Left -Multi-Layered Wrap Application Unna Boot - Unna Boot - Left ($) Left ($) Treatment Response Procedure Procedure Tolerated Well Tolerated Well WC - Visit Discharge Discharge Condition Stable Stable Ambulatory Status Ambulatory Ambulatory Transportation Private Auto Private Auto Notes: Dressing applied per Genia Drake RN today in clinic . Assessment/Plan Assessment/Plan (1) Venous stasis ulcer of ankle with fat layer exposed: CODE(S): I83.003 - Varicose veins of unspecified lower extremity with ulcer of ankle; L97.302 - 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 (2) Chronic venous hypertension w/ulcer and inflammation involv left side: CODE(S): I87.332 - Chronic venous hypertension (idiopathic) with ulcer and inflammation of left lower extremity; L97.929 - Non-pressure chronic ulcer of unspecified part of left lower leg with unspecified severity (3) Chronic venous insufficiency: CODE(S): I87.2 - Venous insufficiency (chronic) (peripheral) (4) Lipodermatosclerosis: CODE(S): I83.10 - Varicose veins of unspecified lower extremity with inflammation (5) Left leg swelling: CODE(S): M79.89 - Other specified soft tissue disorders (6) Leg edema, left: CODE(S): R60.0 - Localized edema (7) Hypertension: CODE(S): I10 - Essential (primary) hypertension (8) Tobacco abuse disorder: CODE(S): Z72.0 - Tobacco use (9) Tobacco abuse counseling: CODE(S): Z71.6 - Tobacco abuse counseling (10) History of seizures: CODE(S): Z87.898 - Personal history of other specified conditions (11) History of hemorrhoidectomy: CODE(S): Z98.890 - Other specified postprocedural states (12) History of hand surgery: CODE(S): Z98.890 - Other specified postprocedural states PLAN: Plan This is a 62-year-old obese male who presented with an ulceration overlying the left medial malleolus. This appears to be related to chronic venous hypertension with inflammation and chronic venous insufficiency. The patient also experiences swelling and edema in his lower extremities, more pronounced at the end of the day. A lengthy discussion has been undertaken as to the appropriate means of management relative to the patient's chronic venous disease. Leg elevation has been recommended. The patient has been encouraged to sleep on a flat surface at night. His legs are to be at heart level, or higher, both while sleeping and during daytime hours. Prolonged idle sitting with his legs in a dependent position has been discouraged. Activity has been encouraged, with recruitment of the calf and foot muscle pumps. Weight loss has also been recommended. We are to continue compression to the left lower extremity by means of an Unna boot, which will be applied twice weekly. We are to use Promogran topically to the ulceration. The patient is to return in 1 week for reassessment. Recent laboratory results from December 13, 2022, have been reviewed, with results as follows: Glucose 97, BUN 20, creatinine 1.23, total protein 7.6, albumin 3.6, calcium 8.9, AST 20, alkaline phosphatase 97, ALT 40, total bilirubin 0.40, cholesterol 175, triglycerides 184, sodium 140, potassium 4.4, chloride 103, HDL 42, LDL 96, VLDL 37. A venous duplex examination recently performed revealed superficial thrombophlebitis involving the right great saphenous vein and an accessory branch. 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 Once again, the patient has been encouraged to elevate his lower extremities, remain active, avoid prolonged idle standing and sitting, and to lose weight. We are to provide the patient an excuse to remain off of work for another 2 weeks. Compression will be implemented by means of an Unna boot to the left lower extremity, which will be changed twice weekly. Promogran will be applied topically to the ulceration. There has been significant improvement within the last several weeks. Because of the finding of superficial thrombophlebitis, the noninvasive lower extremity arterial study, which have been ordered, was not performed. Nutritional optimization has been recommended. The patient has been advised to cease his smoking habit. Given the manifestations related to the patient's chronic venous disease, and findings on his recent venous duplex examination, it is felt that the patient is a candidate for endovenous laser ablation of the left great saphenous vein, a matter which has been discussed with the patient and his significant other at the bedside. The indications and risks have been explained. Expectations have been described. Patient's questions have been answered. The prescription has been provided for graduated compression stockings of 20 to 30 mmHg compression, which the patient is to obtain within the next few days, and will be worn on a daily basis once the Unna boot on the left lower extremity is no longer felt necessary. The patient is to return in 1 week for reassessment. Compression to the right lower extremity is to be implemented by means of a Tubigrip of 20 to 30 mmHg compression, or graduated compression stockings of a similar degree of compression, once obtained. Total time: 28 minutes
[2022-12-27 12:55] VITALS: BP 154/93; PULSE 72; RESP 18; TEMP 36.4; BMI 40.3
[2023-01-01 08:15] VITALS: BP 163/96; PULSE 69; RESP 18; TEMP 36.3; BMI 40.3
--- NOTE | 2023-01-01 13:30 | HP.PCM_ITS ---
History of Present Illness Date of Service: 01/01/23 Chief Complaint: Venous stasis ulceration, chronic venous hypertension with inflammation and ulceration, leg swelling, leg edema?left lower extremity History of Wound: This is a 62-year-old obese male who presented with an ulceration overlying the left medial malleolus. According to the patient and his significant-other female friend, the ulceration had been present for more than 2 years. The patient feels as though it is due to a foreign body which became stuck between his boot and skin causing a pressure ulceration. However, from a clinical standpoint, it is much more likely that this is related to chronic venous hypertension and associated venous disease. The patient relates swelling and edema in his lower extremities, which is worse at the end of each day. 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 He also sleeps in a recliner, although he insists that his lower extremities are at heart level, or higher. He is not very active during his time at home, often sitting for prolonged periods. The patient is a smoker, smoking 1 pack of cigarettes per day for many years. Appropriate counseling has been undertaken as to the adverse effects of tobacco use. With respect to his ulceration, he was initially placed on oral Augmentin in the Emergency Department for cellulitis, and completed a course of doxycycline more recently, as prescribed by his primary care physician. The patient denies a history of deep vein thrombosis. The patient suffers from hypertension and obesity. His BMI is 40.3. The patient's history is negative for myocardial infarction, cerebrovascular accident, diabetes mellitus, pulmonary disease, renal disease, thyroid disease, and hyperlipidemia. [facility] Medical History Chronic venous hypertension w/ulcer and inflammation involv left side Chronic venous insufficiency DVT (deep venous thrombosis) Hx of hypoglycemia Hx of migraines Hx of seasonal allergies Hypertension Lipodermatosclerosis Seizures Venous stasis ulcer of ankle with fat layer exposed Wears glasses Home Medications amlodipine 5 mg tablet 5 mg PO DAILY #30 tabs 11/19/22 [Rx Last Taken Unknown] blood pressure monitor #1 ea 12/12/22 [Rx Last Taken Unknown] furosemide 20 mg tablet 20 mg PO DAILY #30 tabs 12/12/22 [Rx Last Taken Unknown] hydroxyzine HCl 25 mg tablet 25 mg PO QHS #5 tabs 12/12/22 [Rx Last Taken Unknown] ibuprofen 800 mg tablet 800 mg PO BID PRN 12/12/22 [History Last Taken Unknown] lisinopril 20 mg tablet 20 mg PO DAILY #30 tabs 12/12/22 [Rx Last Taken Unknown] nicotine (polacrilex) 4 mg buccal lozenge 4 mg buccal Q4H PRN nicotine cravings #108 ea 12/12/22 [Rx Last Taken Unknown] nicotine 21 mg/24 hr daily transdermal patch (Nicoderm CQ) 1 patch transdermal DAILY #28 ea 12/12/22 [Rx Last Taken Unknown] escitalopram oxalate 10 mg tablet (Lexapro) 30 mg PO DAILY 12/13/22 [History Last Taken Unknown] Allergy/AdvReac Type Severity Reaction Status Date / Time No Known Allergies Allergy Verified 12/12/22 08:56 Family History Father Angina at rest Anxiety Diabetes Myocardial infarction Heart disease Hypertension Hyperlipidemia Respiratory disease Cancer esophageal Mother Cancer lung Depression Hormone disorder Seizures Osteoporosis Brother Myocardial infarction Hyperlipidemia Surgical History H/O foot surgery History of hemorrhoidectomy History of nasal surgery Hx of hand surgery Social History household members: significant other housing: house current occupational status: employed current occupation: [employer] sexually active: Yes Smoking Status: Current every day smoker tobacco type: cigarettes quit status: considering quitting alcohol intake: current alcohol intake frequency: holidays/special occasions only substance use type: marijuana what type of physical activity do you participate in: walking and additional details: lifting frequency: 5-6 times per week seatbelt use: always do you feel safe at home: Yes Vital Signs Vital Signs Vital Signs: 01/01/23 08:15 Temperature 97.3 F L Temperature Source Temporal Pulse Rate 69 Respiratory Rate 18 Blood Pressure 163/96 H Blood Pressure Mean 118 Blood Pressure Source Monitor Weight Weight: 285 lb Body Mass Index (BMI) 40.3 Physical Exam Const alert, oriented x3, no apparent distress and well nourished Constitutional Narrative: The patient is obese. He is friendly and conversant. General Appearance: cooperative, comfortable, well kempt and well developed Orientation / Consciousness: awake, oriented to person, oriented to place and oriented to time Exam Limitations: no limitations HEENT normocephalic, head/scalp atraumatic and hearing grossly normal bilaterally Head and Scalp: normal to inspection, normocephalic and atraumatic External Ear: external ears normal Eyes PERRL and EOMs intact bilaterally General Eye: normal appearance of both eyes Neck full ROM Resp normal respiratory effort, normal air movement, no retractions and no use of accessory muscles Effort and Inspection: able to speak in complete sentences Extremity no calf tenderness General Extremity: Negative for clubbing or cyanosis Skin Wound Narrative: A clustered ulceration is noted overlying the left medial malleolus, with significant improvement. The ulceration has diminished in size since the patient was last seen and evaluated. There is a small amount of bioburden and nonviable tissue present. There is no obvious sign of infection or cellulitis. Swelling and edema appears to be well controlled, and minimal at this time. Hyperpigmentation and lipodermatosclerosis are noted in the gaiter areas bilaterally, more pronounced in the left lower extremity. Ulcer dimensions are documented elsewhere, with a decrease in size since the patient's last appointment. Neuro oriented x3, CN's II-XII intact bilaterally, moves all extremities and no focal motor deficits Sensorium / Orientation: awake, alert, oriented to person, oriented to place and oriented to time Psych Appearance: grossly normal and appropriate Attitude: calm Activity / Motor Behavior: appropriate eye contact Speech: normal speech Mood & Affect: euthymic mood Thought Process: normal thought process Thought Content: normal thought content Attention / Concentration: attention grossly intact Debridement Note Debridement Note Wound debrided: Left medial malleolus, clustered venous ulceration Laterality: Left Type of Debridement: Excisional debridement Anesthesia Used: 5% Lidocaine Gel Depth: Down to and including healthy tissue and in the subcutaneous layer Percentage of wound debrided: 100 Instrument Used: 5mm curette Severity: Fat Layer Exposed Amount of bleeding with debridement: Mild Bleeding Controlled with: Compression and gauze Patient tolerated procedure: Patient tolerated procedure well Post-Debridement Measurements and Additional Note: Post-Debridement Measurements/Treatment MOSES - Nurse 1 - General Ulcer Assessment Start: 12/20/22 08:15 Freq: Status: Active Protocol: LYLE Activity Type Activity Date Activity User E-sign Co-sign Detail Recorded Client Recorded Date Recorded By Document 12/20/22 08:15 DL [id number] 12/20/22 08:20 DL Document 12/25/22 08:32 AK [id number] 12/25/22 08:41 AK Document 12/27/22 12:55 DL [id number] 12/27/22 13:07 DL Document 01/01/23 08:15 DL Desktop 01/01/23 08:20 DL 12/20/22 12/25/22 12/27/22 08:15 08:32 12:55 WC - Today's Visit Information Type of service Nurse-only Follow-up Visit Nurse-only Visit (Physician/INS[employer] Visit ) Arrival Mode Ambulatory Ambulatory Ambulatory Transfer Assistance None Patient Identification Verified (Name & Yes Yes Yes ) Patient Requires Transmission-Based No No No Precautions Height and Weight Body Mass Index (BMI) 40.3 40.3 40.3 BMI Classification Obese Obese Obese Vital Signs Temperature (97.8 F-99.1 F) 96.5 F L 96.2 F L 97.5 F L Temperature Source Temporal Temporal Temporal Pulse Rate (60-100) 69 68 72 Pulse Location Monitor Monitor Monitor Respiratory Rate (12-18) 20 H 18 Respiratory rate source Observation Observation Blood Pressure (90/60-120/80) 156/92 H 150/101 H 154/93 H Blood Pressure Mean 113 117 113 Source Monitor Monitor Monitor Comment Removed 3M to shower last evening. History Since Last Visit- (Skip if this is Patient's initial visit) Have you changed medications since your No No No last visit? Any new allergies or adverse reactions No No No Had a fall/change in ADL's that may No No No increase risk of falls Signs or symptoms of abuse and/or No No No neglect since last visit Have you been in the hospital since your No No No last visit? Has dressing in place as prescribed Yes Yes No Has compression in place as prescribed Yes Yes No Has offloadiing in place as prescribed N/A N/A N/A Experienced any changes in pain level or No No Yes management Left Footwear Regular Shoe Right Footwear Regular Shoe Pain Scale: 0-10 Numeric Is Patient Pain Free? Yes Yes Yes 01/01/23 08:15 WC - Today's Visit Information Type of service Follow-up Visit (Physician/INSPECTOR [employer] ) Arrival Mode Ambulatory Transfer Assistance None Patient Identification Verified (Name & Yes ) Patient Requires Transmission-Based No Precautions Height and Weight Body Mass Index (BMI) 40.3 BMI Classification Obese Vital Signs Temperature (97.8 F-99.1 F) 97.3 F L Temperature Source Temporal Pulse Rate (60-100) 69 Pulse Location Monitor Respiratory Rate (12-18) 18 Respiratory rate source Observation Blood Pressure (90/60-120/80) 163/96 H Blood Pressure Mean 118 Source Monitor Comment History Since Last Visit- (Skip if this is Patient's initial visit) Have you changed medications since your No last visit? Any new allergies or adverse reactions No Had a fall/change in ADL's that may No increase risk of falls Signs or symptoms of abuse and/or No neglect since last visit Have you been in the hospital since your No last visit? Has dressing in place as prescribed Yes Has compression in place as prescribed Yes Has offloadiing in place as prescribed N/A Experienced any changes in pain level or No management Left Footwear Right Footwear Pain Scale: 0-10 Numeric Is Patient Pain Free? Yes WC - Nurse 1 - General Ulcer Measurement Start: 12/20/22 08:15 Freq: Status: Active Protocol: Activity Type Activity Date Activity User E-sign Co-sign Detail Recorded Client Recorded Date Recorded By Document 12/20/22 08:15 DL [id number] 12/20/22 08:20 DL Document 12/25/22 08:32 AK [id number] 12/25/22 08:41 AK Document 12/27/22 12:55 DL [id number] 12/27/22 13:07 DL Document 01/01/23 08:15 DL Desktop 01/01/23 08:20 DL 12/20/22 12/25/22 12/27/22 08:15 08:32 12:55 Wound Center Nurse 1 #1 left medial ankle -Combined with other wound No -Current Size (cm) - Length 0.1 -Current Size (cm) - Width 0.1 -Current Size (cm) - Depth 0.1 -Total Square Cm 0.01 -Photo Taken Yes -Tunneling No -Undermining/Tunneling No -Circular Undermining No -Exudate Amt None Present None Present -Wound Margin Distinct, Outline Attached -Granulation Amt None Present (0 %) -Granulation Quality N/A -Slough/Fibrin No -Necrosis Amt None Present (0 Medium (34-66%) %) -Necrotic Tissue Type Eschar -Structure Exposed N/A N/A N/A -Texture ([place]-wound Skin Appearance) Scarring No Abnormality, Scarring Assessed -Moisture ([place]-wound Skin Appearance) Dry/Scaly No Abnormality, No Abnormality Assessed -Color ([place]-wound Skin Appearance) Hemosiderin No Abnormality, Hemosiderin Staining Assessed Staining -Temperature ([place]-wound Skin No Abnormality No Abnormality No Abnormality Appearance) (Pt Warm) (Pt Warm) (Pt Warm) -Tenderness on Palpation ([place]-wound No No No Skin Appearance) -Ulcer Cleansing Soap and Water Soap and Water Not Cleansed -Foul Odor after Cleansing No No No -Anesthetic Used 5% Lidocaine Gel -Wound Comment(s) Pt removed Unna Boot to shower last evening. Instructed to not shower until a few hrs before appt. Lower Limb Edema Present No Left Calf (cm) 42.5 41 44 Left Ankle (cm) 26.5 27 27.6 01/01/23 08:15 Wound Center Nurse 1 #1 left medial ankle -Combined with other wound -Current Size (cm) - Length 0.1 -Current Size (cm) - Width 0.1 -Current Size (cm) - Depth 0.1 -Total Square Cm 0.01 -Photo Taken Yes -Tunneling -Undermining/Tunneling -Circular Undermining -Exudate Amt None Present -Wound Margin Thickened -Granulation Amt Medium (34-66%) -Granulation Quality Pale -Slough/Fibrin -Necrosis Amt Medium (34-66%) -Necrotic Tissue Type Eschar -Structure Exposed N/A -Texture ([place]-wound Skin Appearance) Scarring -Moisture ([place]-wound Skin Appearance) Dry/Scaly -Color ([place]-wound Skin Appearance) Hemosiderin Staining -Temperature ([place]-wound Skin No Abnormality Appearance) (Pt Warm) -Tenderness on Palpation ([place]-wound No Skin Appearance) -Ulcer Cleansing Soap and Water -Foul Odor after Cleansing No -Anesthetic Used 5% Lidocaine Gel -Wound Comment(s) Lower Limb Edema Present Left Calf (cm) 42 Left Ankle (cm) 27.5 WC - Nurse 2 - General Ulcer CM Notes Start: 12/20/22 08:15 Freq: Status: Active Protocol: Activity Type Activity Date Activity User E-sign Co-sign Detail Recorded Client Recorded Date Recorded By Document 12/25/22 08:50 MW [id number] 12/25/22 08:56 MW Document 01/01/23 08:27 MW [id number] 01/01/23 08:31 MW 12/25/22 01/01/23 08:50 08:27 Wound Center Nurse 2 #1 left medial ankle -Time 08:50 08:28 -Correct Patient Yes Yes -Correct Side, Site, Position Yes Yes -Correct Procedure Yes Yes -Procedure Performed No Yes -Type of Procedure Debridement -Clinical Debridement Subcutaneous -Tissue Removed Subcutaneous -Post Debridement (cm) - Length 0.1 -Post Debridement (cm) - Width 0.1 -Post Debridement (cm) - Depth 0.1 -Total Square (Post) (cm) 0.01 -Area of Debridement (cm) - Length 0.1 -Area of Debridement (cm) - Width 0.1 -Total Square (Area) (cm) 0.01 -Tunneling No No -Undermining/Tunneling No No -Circular Undermining No No -Wound/Ulcer Outcome Not Healed Not Healed -Ulcer Cleansing Rinsed/ Irrigated with Saline -Foul Odor after Cleansing No -Bioengineered Tissue No -Bleeding Controlled with Pressure -Treatment Response Procedure Tolerated Well -Offloading No -Debridement - Subq, 1st 20sq cm Yes Pain Scale: 0-10 Numeric Is Patient Pain Free? Yes Yes WC - Nurse 3 - General Ulcer D/C NN Start: 12/20/22 08:15 Freq: Status: Active Protocol: Activity Type Activity Date Activity User E-sign Co-sign Detail Recorded Client Recorded Date Recorded By Document 12/20/22 08:15 DL [id number] 12/20/22 08:20 DL Document 12/25/22 09:14 DL [id number] 12/25/22 09:18 DL Document 12/27/22 12:55 DL [id number] 12/27/22 13:07 DL Document 01/01/23 08:37 ML [id number] 01/01/23 08:38 ML 12/20/22 12/25/22 12/27/22 08:15 09:14 12:55 Vital Signs Temperature (97.8 F-99.1 F) 96.5 F L 97.5 F L Temperature Source Temporal Temporal Pulse Rate (60-100) 69 72 Pulse Location Monitor Monitor Respiratory Rate (12-18) 20 H 18 Respiratory rate source Observation Observation Blood Pressure (90/60-120/80) 156/92 H 154/93 H Blood Pressure Mean 113 113 Source Monitor Monitor Comment Removed 3M to shower last evening. Pain Scale: 0-10 Numeric Is Patient Pain Free? Yes Yes Yes Wound Care Center Nurse 3 #1 left medial ankle -Ulcer Cleansing Soap and Water Rinsed/ Rinsed/ Irrigated with Irrigated with Saline Saline -Foul Odor after Cleansing No No No -Primary Dressing Applied -Other Dressing Unna Boot unna Unna -Primary Dressing Covered/Secured with Right -Lotion applied to leg before No compression wrap Left -Multi-Layered Wrap Application Unna Boot - Unna Boot - Unna Boot - Left ($) Left ($) Left ($) Treatment Response Procedure Procedure Procedure Tolerated Well Tolerated Well Tolerated Well WC - Visit Discharge Discharge Condition Stable Stable Stable Ambulatory Status Ambulatory Ambulatory Ambulatory Transportation Private Auto Private Auto Private Auto Notes: Dressing applied per Genia Drake RN today in clinic . 01/01/23 08:37 Vital Signs Temperature (97.8 F-99.1 F) Temperature Source Pulse Rate (60-100) Pulse Location Respiratory Rate (12-18) Respiratory rate source Blood Pressure (90/60-120/80) Blood Pressure Mean Source Comment Pain Scale: 0-10 Numeric Is Patient Pain Free? Yes Wound Care Center Nurse 3 #1 left medial ankle -Ulcer Cleansing Rinsed/ Irrigated with Saline -Foul Odor after Cleansing No -Primary Dressing Applied C Hydrogel ($) -Other Dressing -Primary Dressing Covered/Secured with Dry Gauze, Secured with Tape Right -Lotion applied to leg before compression wrap Left -Multi-Layered Wrap Application Treatment Response WC - Visit Discharge Discharge Condition Ambulatory Status Transportation Notes: Assessment/Plan Assessment/Plan (1) Venous stasis ulcer of ankle with fat layer exposed: CODE(S): I83.003 - Varicose veins of unspecified lower extremity with ulcer of ankle; L97.302 - 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 (2) Chronic venous hypertension w/ulcer and inflammation involv left side: CODE(S): I87.332 - Chronic venous hypertension (idiopathic) with ulcer and inflammation of left lower extremity; L97.929 - Non-pressure chronic ulcer of unspecified part of left lower leg with unspecified severity (3) Chronic venous insufficiency: CODE(S): I87.2 - Venous insufficiency (chronic) (peripheral) (4) Lipodermatosclerosis: CODE(S): I83.10 - Varicose veins of unspecified lower extremity with inflammation (5) Left leg swelling: CODE(S): M79.89 - Other specified soft tissue disorders (6) Leg edema, left: CODE(S): R60.0 - Localized edema (7) Hypertension: CODE(S): I10 - Essential (primary) hypertension (8) Tobacco abuse disorder: CODE(S): Z72.0 - Tobacco use (9) Tobacco abuse counseling: CODE(S): Z71.6 - Tobacco abuse counseling (10) History of seizures: CODE(S): Z87.898 - Personal history of other specified conditions (11) History of hemorrhoidectomy: CODE(S): Z98.890 - Other specified postprocedural states (12) History of hand surgery: CODE(S): Z98.890 - Other specified postprocedural states PLAN: Plan This is a 62-year-old obese male who presented with an ulceration overlying the left medial malleolus. This appears to be related to chronic venous hypertension with inflammation and chronic venous insufficiency. The patient also experiences swelling and edema in his lower extremities, more pronounced at the end of the day. A lengthy discussion has been undertaken as to the appropriate means of management relative to the patient's chronic venous disease. Leg elevation has been recommended. The patient has been encouraged to sleep on a flat surface at night. His legs are to be at heart level, or higher, both while sleeping and during daytime hours. Prolonged idle sitting with his legs in a dependent position has been discouraged. Activity has been encouraged, with recruitment of the calf and foot muscle pumps. Weight loss has also been recommended. We are to continue compression to the left lower extremity by means of graduated compression stockings of 20 to 30 mmHg compression, knee-high length, which the patient has recently obtained. With respect to the left ankle ulceration, we are to utilize collagen hydrogel applied topically on a daily basis, and covered with gauze. The patient is to return in 1 week for reassessment. Recent laboratory results from December 13, 2022, have been reviewed, with results as follows: Glucose 97, BUN 20, creat inine 1.23, total protein 7.6, albumin 3.6, calcium 8.9, AST 20, alkaline phosphatase 97, ALT 40, total bilirubin 0.40, cholesterol 175, triglycerides 184, sodium 140, potassium 4.4, chloride 103, HDL 42, LDL 96, VLDL 37. A venous duplex examination recently performed revealed superficial thrombophlebitis involving the right great saphenous vein and an accessory branch. 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 Once again, the patient has been encouraged to elevate his lower extremities, remain active, avoid prolonged idle standing and sitting, and to lose weight. The patient is scheduled to return to work within the next several days. There has been significant improvement within the last several weeks. Because of the finding of superficial thrombophlebitis, the noninvasive lower extremity arterial study, which have been ordered, was not performed. Nutritional optimization has been recommended. The patient has been advised to cease his smoking habit. Given the manifestations related to the patient's chronic venous disease, and findings on his recent venous duplex examination, it is felt that the patient is a candidate for endovenous laser ablation of the left great saphenous vein, a matter which has been discussed with the patient and his significant other at the bedside. The indications and risks have been explained. Expectations have been described. The patient's questions have been answered. The patient is to return in 1 week for reassessment. As mentioned, compression is to be administered bilaterally with graduated compression stockings of 20 to 30 mmHg compression, knee-high length, worn on a daily basis. Total time: 26 minutes
[2023-01-08 08:22] VITALS: BP 174/106; PULSE 65; RESP 18; TEMP 36.4; BMI 40.3
--- NOTE | 2023-01-08 12:19 | PCM.WC.HP ---
History of Present Illness Date of Service: 01/08/23 Chief Complaint: Venous stasis ulceration, chronic venous hypertension with inflammation and ulceration, leg swelling, leg edema?left lower extremity History of Wound: This is a 62-year-old obese male who presented with an ulceration overlying the left medial malleolus. According to the patient and his significant-other female friend, the ulceration had been present for more than 2 years. The patient feels as though it is due to a foreign body which became stuck between his boot and skin causing a pressure ulceration. However, from a clinical standpoint, it is much more likely that this is related to chronic venous hypertension and associated venous disease. The patient relates swelling and edema in his lower extremities, which is worse at the end of each day. 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 He also sleeps in a recliner, although he insists that his lower extremities are at heart level, or higher. He is not very active during his time at home, often sitting for prolonged periods. The patient is a smoker, smoking 1 pack of cigarettes per day for many years. Appropriate counseling has been undertaken as to the adverse effects of tobacco use. With respect to his ulceration, he was initially placed on oral Augmentin in the Emergency Department for cellulitis, and completed a course of doxycycline more recently, as prescribed by his primary care physician. The patient denies a history of deep vein thrombosis. The patient suffers from hypertension and obesity. His BMI is 40.3. The patient's history is negative for myocardial infarction, cerebrovascular accident, diabetes mellitus, pulmonary disease, renal disease, thyroid disease, and hyperlipidemia. [facility] Medical History Chronic venous hypertension w/ulcer and inflammation involv left side Chronic venous insufficiency DVT (deep venous thrombosis) Hx of hypoglycemia Hx of migraines Hx of seasonal allergies Hypertension Lipodermatosclerosis Seizures Venous stasis ulcer of ankle with fat layer exposed Wears glasses Home Medications amlodipine 5 mg tablet 5 mg PO DAILY #30 tabs 11/19/22 [Rx Last Taken Unknown] blood pressure monitor #1 ea 12/12/22 [Rx Last Taken Unknown] furosemide 20 mg tablet 20 mg PO DAILY #30 tabs 12/12/22 [Rx Last Taken Unknown] hydroxyzine HCl 25 mg tablet 25 mg PO QHS #5 tabs 12/12/22 [Rx Last Taken Unknown] ibuprofen 800 mg tablet 800 mg PO BID PRN 12/12/22 [History Last Taken Unknown] lisinopril 20 mg tablet 20 mg PO DAILY #30 tabs 12/12/22 [Rx Last Taken Unknown] nicotine (polacrilex) 4 mg buccal lozenge 4 mg buccal Q4H PRN nicotine cravings #108 ea 12/12/22 [Rx Last Taken Unknown] nicotine 21 mg/24 hr daily transdermal patch (Nicoderm CQ) 1 patch transdermal DAILY #28 ea 12/12/22 [Rx Last Taken Unknown] escitalopram oxalate 10 mg tablet (Lexapro) 30 mg PO DAILY 12/13/22 [History Last Taken Unknown] Allergy/AdvReac Type Severity Reaction Status Date / Time No Known Allergies Allergy Verified 12/12/22 08:56 Family History Father Angina at rest Anxiety Diabetes Myocardial infarction Heart disease Hypertension Hyperlipidemia Respiratory disease Cancer esophageal Mother Cancer lung Depression Hormone disorder Seizures Osteoporosis Brother Myocardial infarction Hyperlipidemia Surgical History H/O foot surgery History of hemorrhoidectomy History of nasal surgery Hx of hand surgery Social History household members: significant other housing: house current occupational status: employed current occupation: [employer] sexually active: Yes Smoking Status: Current every day smoker tobacco type: cigarettes quit status: considering quitting alcohol intake: current alcohol intake frequency: holidays/special occasions only substance use type: marijuana what type of physical activity do you participate in: walking and additional details: lifting frequency: 5-6 times per week seatbelt use: always do you feel safe at home: Yes Vital Signs Vital Signs Vital Signs: 01/08/23 08:22 Temperature 97.5 F L Temperature Source Temporal Pulse Rate 65 Respiratory Rate 18 Blood Pressure 174/106 H Blood Pressure Mean 128 Blood Pressure Source Monitor Weight Weight: 285 lb Body Mass Index (BMI) 40.3 Physical Exam Const alert, oriented x3, no apparent distress and well nourished Constitutional Narrative: The patient is obese. He is friendly and conversant. General Appearance: cooperative, comfortable, well kempt and well developed Orientation / Consciousness: awake, oriented to person, oriented to place and oriented to time Exam Limitations: no limitations HEENT normocephalic, head/scalp atraumatic and hearing grossly normal bilaterally Head and Scalp: normal to inspection, normocephalic and atraumatic External Ear: external ears normal Eyes PERRL and EOMs intact bilaterally General Eye: normal appearance of both eyes Neck full ROM Resp normal respiratory effort, normal air movement, no retractions and no use of accessory muscles Effort and Inspection: able to speak in complete sentences Extremity no calf tenderness General Extremity: Negative for clubbing or cyanosis Skin Wound Narrative: A clustered ulceration is noted overlying the left medial malleolus, with significant improvement. The ulceration has diminished in size since the patient was last seen and evaluated. Dimensions are documented elsewhere. There is a small amount of bioburden and nonviable tissue present. There is no obvious sign of infection or cellulitis. Swelling and edema has worsened since the patient's last appointment. Hyperpigmentation and lipodermatosclerosis are noted in the gaiter areas bilaterally, more pronounced in the left lower extremity. A new ulceration has developed since the patient's last visit, located on the distal portion of the patient's left posterior calf. Dimensions are documented elsewhere. There is no sign of infection or cellulitis. Neuro oriented x3, CN's II-XII intact bilaterally, moves all extremities and no focal motor deficits Sensorium / Orientation: awake, alert, oriented to person, oriented to place and oriented to time Psych Appearance: grossly normal and appropriate Attitude: calm Activity / Motor Behavior: appropriate eye contact Speech: normal speech Mood & Affect: euthymic mood Thought Process: normal thought process Thought Content: normal thought content Attention / Concentration: attention grossly intact Debridement Note Debridement Note Wound debrided: Left medial malleolus, clustered venous ulceration; left posterior calf Laterality: Left Type of Debridement: Excisional debridement Anesthesia Used: 5% Lidocaine Gel Depth: Down to and including healthy tissue and in the subcutaneous layer Percentage of wound debrided: 100 Instrument Used: 5mm curette Severity: Fat Layer Exposed Amount of bleeding with debridement: Mild Bleeding Controlled with: Compression and gauze Patient tolerated procedure: Patient tolerated procedure well Post-Debridement Measurements and Additional Note: Post-Debridement Measurements/Treatment WC - Nurse 1 - General Ulcer Assessment Start: 12/20/22 08:15 Freq: Status: Active Protocol: WC.LOWEXT Activity Type Activity Date Activity User E-sign Co-sign Detail Recorded Client Recorded Date Recorded By Document 12/20/22 08:15 DL [id number] 12/20/22 08:20 DL Document 12/25/22 08:32 AK [id number] 12/25/22 08:41 AK Document 12/27/22 12:55 DL [id number] 12/27/22 13:07 DL Document 01/01/23 08:15 DL Desktop 01/01/23 08:20 DL Document 01/08/23 08:22 ML [id number] 01/08/23 08:29 ML 12/20/22 12/25/22 12/27/22 08:15 08:32 12:55 WC - Today's Visit Information Type of service Nurse-only Follow-up Visit Nurse-only Visit (Physician/SPECIAL EVENTS MANAGER Visit ) Arrival Mode Ambulatory Ambulatory Ambulatory Transfer Assistance None Patient Identification Verified (Name & Yes Yes Yes ) Patient Requires Transmission-Based No No No Precautions Height and Weight Body Mass Index (BMI) 40.3 40.3 40.3 BMI Classification Obese Obese Obese Vital Signs Temperature (97.8 F-99.1 F) 96.5 F L 96.2 F L 97.5 F L Temperature Source Temporal Temporal Temporal Pulse Rate (60-100) 69 68 72 Pulse Location Monitor Monitor Monitor Respiratory Rate (12-18) 20 H 18 Respiratory rate source Observation Observation Blood Pressure (90/60-120/80) 156/92 H 150/101 H 154/93 H Blood Pressure Mean 113 117 113 Source Monitor Monitor Monitor Comment Removed 3M to shower last evening. History Since Last Visit- (Skip if this is Patient's initial visit) Have you changed medications since your No No No last visit? Any new allergies or adverse reactions No No No Had a fall/change in ADL's that may No No No increase risk of falls Signs or symptoms of abuse and/or No No No neglect since last visit Have you been in the hospital since your No No No last visit? Has dressing in place as prescribed Yes Yes No Has compression in place as prescribed Yes Yes No Has offloadiing in place as prescribed N/A N/A N/A Experienced any changes in pain level or No No Yes management Left Footwear Regular Shoe Right Footwear Regular Shoe Pain Scale: 0-10 Numeric Is Patient Pain Free? Yes Yes Yes 01/01/23 01/08/23 08:15 08:22 - Today's Visit Information Type of service Follow-up Visit Follow-up Visit (Physician/SPECIAL EVENTS MANAGER (Physician/SPECIAL EVENTS MANAGER ) ) Arrival Mode Ambulatory Ambulatory Transfer Assistance None None Patient Identification Verified (Name & Yes Yes ) Patient Requires Transmission-Based No No Precautions Height and Weight Body Mass Index (BMI) 40.3 40.3 BMI Classification Obese Obese Vital Signs Temperature (97.8 F-99.1 F) 97.3 F L 97.5 F L Temperature Source Temporal Temporal Pulse Rate (60-100) 69 65 Pulse Location Monitor Monitor Respiratory Rate (12-18) 18 18 Respiratory rate source Observation Observation Blood Pressure (90/60-120/80) 163/96 H 174/106 H Blood Pressure Mean 118 128 Source Monitor Monitor Comment History Since Last Visit- (Skip if this is Patient's initial visit) Have you changed medications since your No No last visit? Any new allergies or adverse reactions No No Had a fall/change in ADL's that may No No increase risk of falls Signs or symptoms of abuse and/or No No neglect since last visit Have you been in the hospital since your No No last visit? Has dressing in place as prescribed Yes Yes Has compression in place as prescribed Yes Yes Has offloadiing in place as prescribed N/A N/A Experienced any changes in pain level or No No management Left Footwear Regular Shoe Right Footwear Regular Shoe Pain Scale: 0-10 Numeric Is Patient Pain Free? Yes Yes - Nurse 1 - General Ulcer Measurement Start: 12/20/22 08:15 Freq: Status: Active Protocol: Activity Type Activity Date Activity User E-sign Co-sign Detail Recorded Client Recorded Date Recorded By Document 12/20/22 08:15 DL [id number] 12/20/22 08:20 DL Document 12/25/22 08:32 AK [id number] 12/25/22 08:41 AK Document 12/27/22 12:55 DL [id number] 12/27/22 13:07 DL Document 01/01/23 08:15 DL Desktop 01/01/23 08:20 DL Document 01/08/23 08:22 ML [id number] 01/08/23 08:29 ML 12/20/22 12/25/22 12/27/22 08:15 08:32 12:55 Wound Center Nurse 1 #2 LLE post -Current Size (cm) - Length -Current Size (cm) - Width -Current Size (cm) - Depth -Total Square Cm -Photo Taken -Exudate Amt -Exudate Type -Wound Margin -Granulation Amt -Granulation Quality -Necrosis Amt -Structure Exposed -Texture ([place]-wound Skin Appearance) -Moisture ([place]-wound Skin Appearance) -Color ([place]-wound Skin Appearance) -Temperature ([place]-wound Skin Appearance) -Ulcer Cleansing -Foul Odor after Cleansing -Anesthetic Used #1 left medial ankle -Combined with other wound No -Current Size (cm) - Length 0.1 -Current Size (cm) - Width 0.1 -Current Size (cm) - Depth 0.1 -Total Square Cm 0.01 -Photo Taken Yes -Tunneling No -Undermining/Tunneling No -Circular Undermining No -Exudate Amt None Present None Present -Wound Margin Distinct, Outline Attached -Granulation Amt None Present (0 %) -Granulation Quality N/A -Slough/Fibrin No -Necrosis Amt None Present (0 Medium (34-66%) %) -Necrotic Tissue Type Eschar -Structure Exposed N/A N/A N/A -Texture ([place]-wound Skin Appearance) Scarring No Abnormality, Scarring Assessed -Moisture ([place]-wound Skin Appearance) Dry/Scaly No Abnormality, No Abnormality Assessed -Color ([place]-wound Skin Appearance) Hemosiderin No Abnormality, Hemosiderin Staining Assessed Staining -Temperature ([place]-wound Skin No Abnormality No Abnormality No Abnormality Appearance) (Pt Warm) (Pt Warm) (Pt Warm) -Tenderness on Palpation ([place]-wound No No No Skin Appearance) -Ulcer Cleansing Soap and Water Soap and Water Not Cleansed -Foul Odor after Cleansing No No No -Anesthetic Used 5% Lidocaine Gel -Wound Comment(s) Pt removed Unna Boot to shower last evening. Instructed to not shower until a few hrs before appt. Lower Limb Edema Present No Left Calf (cm) 42.5 41 44 Left Ankle (cm) 26.5 27 27.6 01/01/23 01/08/23 08:15 08:22 Wound Center Nurse 1 #2 LLE post -Current Size (cm) - Length 0.5 -Current Size (cm) - Width 0.5 -Current Size (cm) - Depth 0.2 -Total Square Cm 0.25 -Photo Taken Yes -Exudate Amt Small -Exudate Type Serosanguineous -Wound Margin Distinct, Outline Attached -Granulation Amt Large (67-100%) -Granulation Quality [place] -Necrosis Amt None Present (0 %) -Structure Exposed N/A -Texture ([place]-wound Skin Appearance) Scarring -Moisture ([place]-wound Skin Appearance) No Abnormality -Color ([place]-wound Skin Appearance) Erythema, Hemosiderin Staining -Temperature ([place]-wound Skin No Abnormality Appearance) (Pt Warm) -Ulcer Cleansing Soap and Water -Foul Odor after Cleansing No -Anesthetic Used 5% Lidocaine Gel #1 left medial ankle -Combined with other wound -Current Size (cm) - Length 0.1 0.1 -Current Size (cm) - Width 0.1 0.1 -Current Size (cm) - Depth 0.1 0.1 -Total Square Cm 0.01 0.01 -Photo Taken Yes Yes -Tunneling -Undermining/Tunneling -Circular Undermining -Exudate Amt None Present None Present -Wound Margin Thickened Indistinct, Non -Visible -Granulation Amt Medium (34-66%) Large (67-100%) -Granulation Quality Pale [place] -Slough/Fibrin -Necrosis Amt Medium (34-66%) None Present (0 %) -Necrotic Tissue Type Eschar -Structure Exposed N/A N/A -Texture ([place]-wound Skin Appearance) Scarring Scarring -Moisture ([place]-wound Skin Appearance) Dry/Scaly No Abnormality -Color ([place]-wound Skin Appearance) Hemosiderin Hemosiderin Staining Staining -Temperature ([place]-wound Skin No Abnormality No Abnormality Appearance) (Pt Warm) (Pt Warm) -Tenderness on Palpation ([place]-wound No Skin Appearance) -Ulcer Cleansing Soap and Water Rinsed/ Irrigated with Saline -Foul Odor after Cleansing No -Anesthetic Used 5% Lidocaine Gel -Wound Comment(s) Lower Limb Edema Present Left Calf (cm) 42 43 Left Ankle (cm) 27.5 29.5 WC - Nurse 2 - General Ulcer CM Notes Start: 12/20/22 08:15 Freq: Status: Active Protocol: Activity Type Activity Date Activity User E-sign Co-sign Detail Recorded Client Recorded Date Recorded By Document 12/25/22 08:50 MW [id number] 12/25/22 08:56 MW Document 01/01/23 08:27 MW [id number] 01/01/23 08:31 MW Document 01/08/23 08:41 MW [id number] 01/08/23 08:46 MW 12/25/22 01/01/23 01/08/23 08:50 08:27 08:41 Wound Center Nurse 2 #2 LLE post -Time 08:41 -Correct Patient Yes -Correct Side, Site, Position Yes -Correct Procedure Yes -Procedure Performed Yes -Type of Procedure Debridement -Clinical Debridement Subcutaneous -Tissue Removed Subcutaneous -Post Debridement (cm) - Length 0.5 -Post Debridement (cm) - Width 0.4 -Post Debridement (cm) - Depth 0.1 -Total Square (Post) (cm) 0.20 -Area of Debridement (cm) - Length 0.5 -Area of Debridement (cm) - Width 0.4 -Total Square (Area) (cm) 0.20 -Tunneling No -Undermining/Tunneling No -Circular Undermining No -Wound/Ulcer Outcome Not Healed -Ulcer Cleansing Rinsed/ Irrigated with Saline -Foul Odor after Cleansing No -Bioengineered Tissue No -Bleeding Controlled with Pressure -Treatment Response Procedure Tolerated Well -Offloading No -Debridement - Subq, 1st 20sq cm Yes #1 left medial ankle -Time 08:50 08:28 08:41 -Correct Patient Yes Yes Yes -Correct Side, Site, Position Yes Yes Yes -Correct Procedure Yes Yes Yes -Procedure Performed No Yes Yes -Type of Procedure Debridement Debridement -Clinical Debridement Subcutaneous Subcutaneous -Tissue Removed Subcutaneous Subcutaneous -Post Debridement (cm) - Length 0.1 0.3 -Post Debridement (cm) - Width 0.1 0.3 -Post Debridement (cm) - Depth 0.1 0.1 -Total Square (Post) (cm) 0.01 0.09 -Area of Debridement (cm) - Length 0.1 0.3 -Area of Debridement (cm) - Width 0.1 0.3 -Total Square (Area) (cm) 0.01 0.09 -Tunneling No No No -Undermining/Tunneling No No No -Circular Undermining No No No -Wound/Ulcer Outcome Not Healed Not Healed Not Healed -Ulcer Cleansing Rinsed/ Rinsed/ Irrigated with Irrigated with Saline Saline -Foul Odor after Cleansing No No -Bioengineered Tissue No No -Bleeding Controlled with Pressure Pressure -Treatment Response Procedure Procedure Tolerated Well Tolerated Well -Offloading No No -Debridement - Subq, 1st 20sq cm Yes No Pain Scale: 0-10 Numeric Is Patient Pain Free? Yes Yes Yes WC - Nurse 3 - General Ulcer D/C NN Start: 12/20/22 08:15 Freq: Status: Active Protocol: Activity Type Activity Date Activity User E-sign Co-sign Detail Recorded Client Recorded Date Recorded By Document 12/20/22 08:15 DL [id number] 12/20/22 08:20 DL Document 12/25/22 09:14 DL [id number] 12/25/22 09:18 DL Document 12/27/22 12:55 DL [id number] 12/27/22 13:07 DL Document 01/01/23 08:37 ML [id number] 01/01/23 08:38 ML Document 01/08/23 09:02 DL [id number] 01/08/23 09:03 DL 12/20/22 12/25/22 12/27/22 08:15 09:14 12:55 Vital Signs Temperature (97.8 F-99.1 F) 96.5 F L 97.5 F L Temperature Source Temporal Temporal Pulse Rate (60-100) 69 72 Pulse Location Monitor Monitor Respiratory Rate (12-18) 20 H 18 Respiratory rate source Observation Observation Blood Pressure (90/60-120/80) 156/92 H 154/93 H Blood Pressure Mean 113 113 Source Monitor Monitor Comment Removed 3M to shower last evening. Pain Scale: 0-10 Numeric Is Patient Pain Free? Yes Yes Yes Wound Care Center Nurse 3 #2 LLE post -Ulcer Cleansing -Foul Odor after Cleansing -Primary Dressing Applied -Primary Dressing Covered/Secured with #1 left medial ankle -Ulcer Cleansing Soap and Water Rinsed/ Rinsed/ Irrigated with Irrigated with Saline Saline -Foul Odor after Cleansing No No No -Primary Dressing Applied -Other Dressing Unna Boot unna Unna -Primary Dressing Covered/Secured with Right -Lotion applied to leg before No compression wrap -Stockings Left -Multi-Layered Wrap Application Unna Boot - Unna Boot - Unna Boot - Left ($) Left ($) Left ($) -Stockings Treatment Response Procedure Procedure Procedure Tolerated Well Tolerated Well Tolerated Well WC - Visit Discharge Discharge Condition Stable Stable Stable Ambulatory Status Ambulatory Ambulatory Ambulatory Transportation Private Auto Private Auto Private Auto Notes: Dressing applied per Genia Drake RN today in clinic . 01/01/23 01/08/23 08:37 09:02 Vital Signs Temperature (97.8 F-99.1 F) Temperature Source Pulse Rate (60-100) Pulse Location Respiratory Rate (12-18) Respiratory rate source Blood Pressure (90/60-120/80) Blood Pressure Mean Source Comment Pain Scale: 0-10 Numeric Is Patient Pain Free? Yes Yes Wound Care Center Nurse 3 #2 LLE post -Ulcer Cleansing Rinsed/ Irrigated with Saline -Foul Odor after Cleansing No -Primary Dressing Applied C Hydrogel ($) -Primary Dressing Covered/Secured with Dry Gauze, Secured with Tape #1 left medial ankle -Ulcer Cleansing Rinsed/ Rinsed/ Irrigated with Irrigated with Saline Saline -Foul Odor after Cleansing No No -Primary Dressing Applied C Hydrogel ($) -Other Dressing hydrogel -Primary Dressing Covered/Secured with Dry Gauze, Dry Gauze, Secured with Secured with Tape Tape Right -Lotion applied to leg before compression wrap -Stockings Yes Left -Multi-Layered Wrap Application -Stockings Yes Treatment Response Procedure Tolerated Well WC - Visit Discharge Discharge Condition Stable Ambulatory Status Ambulatory Transportation Private Auto Notes: Assessment/Plan Assessment/Plan (1) Venous stasis ulcer of ankle with fat layer exposed: CODE(S): I83.003 - Varicose veins of unspecified lower extremity with ulcer of ankle; L97.302 - 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 (2) Chronic venous hypertension w/ulcer and inflammation involv left side: CODE(S): I87.332 - Chronic venous hypertension (idiopathic) with ulcer and inflammation of left lower extremity; L97.929 - Non-pressure chronic ulcer of unspecified part of left lower leg with unspecified severity (3) Chronic venous insufficiency: CODE(S): I87.2 - Venous insufficiency (chronic) (peripheral) (4) Lipodermatosclerosis: CODE(S): I83.10 - Varicose veins of unspecified lower extremity with inflammation (5) Left leg swelling: CODE(S): M79.89 - Other specified soft tissue disorders (6) Leg edema, left: CODE(S): R60.0 - Localized edema (7) Hypertension: CODE(S): I10 - Essential (primary) hypertension (8) Tobacco abuse disorder: CODE(S): Z72.0 - Tobacco use (9) Tobacco abuse counseling: CODE(S): Z71.6 - Tobacco abuse counseling (10) History of seizures: CODE(S): Z87.898 - Personal history of other specified conditions (11) History of hemorrhoidectomy: CODE(S): Z98.890 - Other specified postprocedural states (12) History of hand surgery: CODE(S): Z98.890 - Other specified postprocedural states PLAN: Plan This is a 62-year-old obese male who presented with an ulceration overlying the left medial malleolus. This appears to be related to chronic venous hypertension with inflammation and chronic venous insufficiency. The patient also experiences swelling and edema in his lower extremities, more pronounced at the end of the day. A lengthy discussion has been undertaken as to the appropriate means of management relative to the patient's chronic venous disease. Leg elevation has been recommended. The patient has been encouraged to sleep on a flat surface at night. His legs are to be at heart level, or higher, both while sleeping and during daytime hours. Prolonged idle sitting with his legs in a dependent position has been discouraged. Activity has been encouraged, with recruitment of the calf and foot muscle pumps. Weight loss has also been recommended. 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 He works 8-hour shifts, and 13 days out of every 2 weeks. His left lower extremity is now noted to be markedly swollen and edematous. There has been an increase in the swelling since previously evaluated. In addition, a new ulceration is now present on the distal aspect of his left posterior calf, thought to be due to the enhanced swelling and edema in his limb. As result, we are to extend his hiatus from work, for another several weeks. This will enable the patient to be at home, with legs elevated, a measure felt to be necessary to achieve wound healing. We are to continue compression to the left lower extremity by means of graduated compression stockings of 20 to 30 mmHg compression, knee-high length, which the patient has recently obtained. Collagen hydrogel is to be applied topically to each of the 2 ulceration sites, on the left medial malleolus and the left posterior calf. The collagen hydrogel will be applied on a daily basis. The patient is to return in 1 week for reassessment. Recent laboratory results from December 13, 2022, have been reviewed, with results as follows: Glucose 97, BUN 20, creatinine 1.23, total protein 7.6, albumin 3.6, calcium 8.9, AST 20, alkaline phosphatase 97, ALT 40, total bilirubin 0.40, cholesterol 175, triglycerides 184, sodium 140, potassium 4.4, chloride 103, HDL 42, LDL 96, VLDL 37. A venous duplex examination recently performed revealed superficial thrombophlebitis involving the right great saphenous vein and an accessory branch. 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 Once again, the patient has been encouraged to elevate his lower extremities, remain active, avoid prolonged idle standing and sitting, and to lose weight. There has been improvement in the patient's swelling and edema while at home, but the patient has suffered a setback with only 1 week back on the job. The patient is to wear his graduated compression stockings of 20 to 30 mmHg compression bilaterally, as acute superficial thrombophlebitis has been recently diagnosed in the right lower extremity, and ulcerations related to his venous disease are present on the left side. Nutritional optimization has been recommended. The patient has been advised to cease his smoking habit. Given the manifestations related to the patient's chronic venous disease, and findings on his recent venous duplex examination, it is felt that the patient is a candidate for endovenous laser ablation of the left great saphenous vein, a matter which has been discussed with the patient and his significant other at the bedside. The indications and risks have been explained. Expectations have been described. The patient's questions have been answered. The patient is to return in 1 week for reassessment. As mentioned, compression is to be administered bilaterally with graduated compression stockings of 20 to 30 mmHg compression, knee-high length, worn on a daily basis. Total time: 28 minutes
[2023-01-15 08:26] VITALS: BP 164/93; PULSE 64; TEMP 36.1; BMI 40.3
--- NOTE | 2023-01-15 13:45 | HP.PCM_ITS ---
History of Present Illness Date of Service: 01/15/23 Chief Complaint: Venous stasis ulceration, chronic venous hypertension with inflammation and ulceration, leg swelling, leg edema?left lower extremity History of Wound: This is a 62-year-old obese male who presented with an ulceration overlying the left medial malleolus. According to the patient and his significant-other female friend, the ulceration had been present for more than 2 years. The patient feels as though it is due to a foreign body which became stuck between his boot and skin causing a pressure ulceration. However, from a clinical standpoint, it is much more likely that this is related to chronic venous hypertension and associated venous disease. The patient relates swelling and edema in his lower extremities, which is worse at the end of each day. 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 He also sleeps in a recliner, although he insists that his lower extremities are at heart level, or higher. He is not very active during his time at home, often sitting for prolonged periods. The patient is a smoker, smoking 1 pack of cigarettes per day for many years. Appropriate counseling has been undertaken as to the adverse effects of tobacco use. With respect to his ulceration, he was initially placed on oral Augmentin in the Emergency Department for cellulitis, and completed a course of doxycycline more recently, as prescribed by his primary care physician. The patient denies a history of deep vein thrombosis. The patient suffers from hypertension and obesity. His BMI is 40.3. The patient's history is negative for myocardial infarction, cerebrovascular accident, diabetes mellitus, pulmonary disease, renal disease, thyroid disease, and hyperlipidemia. [facility] Medical History Chronic venous hypertension w/ulcer and inflammation involv left side Chronic venous insufficiency DVT (deep venous thrombosis) Hx of hypoglycemia Hx of migraines Hx of seasonal allergies Hypertension Lipodermatosclerosis Seizures Venous stasis ulcer of ankle with fat layer exposed Wears glasses Home Medications amlodipine 5 mg tablet 5 mg PO DAILY #30 tabs 11/19/22 [Rx Last Taken Unknown] blood pressure monitor #1 ea 12/12/22 [Rx Last Taken Unknown] ibuprofen 800 mg tablet 800 mg PO BID PRN 12/12/22 [History Last Taken Unknown] nicotine (polacrilex) 4 mg buccal lozenge 4 mg buccal Q4H PRN nicotine cravings #108 ea 12/12/22 [Rx Last Taken Unknown] nicotine 21 mg/24 hr daily transdermal patch (Nicoderm CQ) 1 patch transdermal DAILY #28 ea 12/12/22 [Rx Last Taken Unknown] escitalopram oxalate 10 mg tablet (Lexapro) 10 mg PO DAILY #30 tabs 01/08/23 [Rx Last Taken Unknown] lisinopril 20 mg-hydrochlorothiazide 12.5 mg tablet 1 tab PO DAILY #30 tabs 01/08/23 [Rx Last Taken Unknown] Allergy/AdvReac Type Severity Reaction Status Date / Time No Known Allergies Allergy Verified 01/08/23 15:14 Family History Father Angina at rest Anxiety Diabetes Myocardial infarction Heart disease Hypertension Hyperlipidemia Respiratory disease Cancer esophageal Mother Cancer lung Depression Hormone disorder Seizures Osteoporosis Brother Myocardial infarction Hyperlipidemia Surgical History H/O foot surgery History of hemorrhoidectomy History of nasal surgery Hx of hand surgery Social History household members: significant other housing: house current occupational status: employed current occupation: [employer] sexually active: Yes Smoking Status: Current every day smoker tobacco type: cigarettes quit status: considering quitting alcohol intake: current alcohol intake frequency: holidays/special occasions only substance use type: marijuana what type of physical activity do you participate in: walking and additional details: lifting frequency: 5-6 times per week seatbelt use: always do you feel safe at home: Yes Vital Signs Vital Signs Vital Signs: 01/15/23 08:26 Temperature 96.9 F L Temperature Source Temporal Pulse Rate 64 Blood Pressure 164/93 H Blood Pressure Mean 116 Blood Pressure Source Monitor Weight Weight: 285 lb Body Mass Index (BMI) 40.3 Physical Exam Const alert, oriented x3, no apparent distress and well nourished Constitutional Narrative: The patient is obese. He is friendly and conversant. General Appearance: cooperative, comfortable, well kempt and well developed Orientation / Consciousness: awake, oriented to person, oriented to place and oriented to time Exam Limitations: no limitations HEENT normocephalic, head/scalp atraumatic and hearing grossly normal bilaterally Head and Scalp: normal to inspection, normocephalic and atraumatic External Ear: external ears normal Eyes PERRL and EOMs intact bilaterally General Eye: normal appearance of both eyes Neck full ROM Resp normal respiratory effort, normal air movement, no retractions and no use of accessory muscles Effort and Inspection: able to speak in complete sentences Extremity no calf tenderness General Extremity: Negative for clubbing or cyanosis Skin Wound Narrative: A clustered ulceration is noted overlying the left medial malleolus, with significant improvement. The ulceration has diminished in size since the patient was last seen and evaluated. It is now quite small. Dimensions are documented elsewhere. There is a small amount of bioburden and nonviable tissue present. There is no obvious sign of infection or cellulitis. Mild left lower extremity swelling and edema are noted. Hyperpigmentation and lipodermatosclerosis are noted in the gaiter areas bilaterally, more pronounced in the left lower extremity. A new ulceration has recently developed, located on the distal portion of the patient's left posterior calf. This more recent ulceration is relatively small in size, and dimensions are documented elsewhere. There is no sign of infection or cellulitis. There is a small amount of bioburden. Neuro oriented x3, CN's II-XII intact bilaterally, moves all extremities and no focal motor deficits Sensorium / Orientation: awake, alert, oriented to person, oriented to place and oriented to time Psych Appearance: grossly normal and appropriate Attitude: calm Activity / Motor Behavior: appropriate eye contact Speech: normal speech Mood & Affect: euthymic mood Thought Process: normal thought process Thought Content: normal thought content Attention / Concentration: attention grossly intact Debridement Note Debridement Note Wound debrided: Left medial malleolus, clustered venous ulceration; left posterior calf Laterality: Left Type of Debridement: Excisional debridement Anesthesia Used: 5% Lidocaine Gel Depth: Down to and including healthy tissue and in the subcutaneous layer Percentage of wound debrided: 100 Instrument Used: 5mm curette Severity: Fat Layer Exposed Amount of bleeding with debridement: Mild Bleeding Controlled with: Compression and gauze Patient tolerated procedure: Patient tolerated procedure well Post-Debridement Measurements and Additional Note: Post-Debridement Measurements/Treatment [facility] - Nurse 1 - General Ulcer Assessment Start: 12/20/22 08:15 Freq: Status: Active Protocol: LYLE Activity Type Activity Date Activity User E-sign Co-sign Detail Recorded Client Recorded Date Recorded By Document 12/20/22 08:15 DL [id number] 12/20/22 08:20 DL Document 12/25/22 08:32 AK [id number] 12/25/22 08:41 AK Document 12/27/22 12:55 DL [id number] 12/27/22 13:07 DL Document 01/01/23 08:15 DL Desktop 01/01/23 08:20 DL Document 01/08/23 08:22 ML [id number] 01/08/23 08:29 ML Document 01/15/23 08:26 AK [id number] 01/15/23 08:28 AK 12/20/22 12/25/22 12/27/22 08:15 08:32 12:55 WC - Today's Visit Information Type of service Nurse-only Follow-up Visit Nurse-only Visit (Physician/HOME STEREO EQUIPMENT INSTALLER Visit ) Arrival Mode Ambulatory Ambulatory Ambulatory Transfer Assistance None Patient Identification Verified (Name & Yes Yes Yes ) Patient Requires Transmission-Based No No No Precautions Height and Weight Body Mass Index (BMI) 40.3 40.3 40.3 BMI Classification Obese Obese Obese Vital Signs Temperature (97.8 F-99.1 F) 96.5 F L 96.2 F L 97.5 F L Temperature Source Temporal Temporal Temporal Pulse Rate (60-100) 69 68 72 Pulse Location Monitor Monitor Monitor Respiratory Rate (12-18) 20 H 18 Respiratory rate source Observation Observation Blood Pressure (90/60-120/80) 156/92 H 150/101 H 154/93 H Blood Pressure Mean 113 117 113 Source Monitor Monitor Monitor Comment Removed 3M to shower last evening. History Since Last Visit- (Skip if this is Patient's initial visit) Have you changed medications since your No No No last visit? Any new allergies or adverse reactions No No No Had a fall/change in ADL's that may No No No increase risk of falls Signs or symptoms of abuse and/or No No No neglect since last visit Have you been in the hospital since your No No No last visit? Has dressing in place as prescribed Yes Yes No Has compression in place as prescribed Yes Yes No Has offloadiing in place as prescribed N/A N/A N/A Experienced any changes in pain level or No No Yes management Left Footwear Regular Shoe Right Footwear Regular Shoe Pain Scale: 0-10 Numeric Is Patient Pain Free? Yes Yes Yes 01/01/23 01/08/23 01/15/23 08:15 08:22 08:26 - Today's Visit Information Type of service Follow-up Visit Follow-up Visit Follow-up Visit (Physician/HOME STEREO EQUIPMENT INSTALLER (Physician/HOME STEREO EQUIPMENT INSTALLER (Physician/HOME STEREO EQUIPMENT INSTALLER ) ) ) Arrival Mode Ambulatory Ambulatory Ambulatory Transfer Assistance None None Patient Identification Verified (Name & Yes Yes Yes ) Patient Requires Transmission-Based No No No Precautions Height and Weight Body Mass Index (BMI) 40.3 40.3 40.3 BMI Classification Obese Obese Obese Vital Signs Temperature (97.8 F-99.1 F) 97.3 F L 97.5 F L 96.9 F L Temperature Source Temporal Temporal Temporal Pulse Rate (60-100) 69 65 64 Pulse Location Monitor Monitor Monitor Respiratory Rate (12-18) 18 18 Respiratory rate source Observation Observation Blood Pressure (90/60-120/80) 163/96 H 174/106 H 164/93 H Blood Pressure Mean 118 128 116 Source Monitor Monitor Monitor Comment History Since Last Visit- (Skip if this is Patient's initial visit) Have you changed medications since your No No No last visit? Any new allergies or adverse reactions No No No Had a fall/change in ADL's that may No No No increase risk of falls Signs or symptoms of abuse and/or No No No neglect since last visit Have you been in the hospital since your No No No last visit? Has dressing in place as prescribed Yes Yes Yes Has compression in place as prescribed Yes Yes No Has offloadiing in place as prescribed N/A N/A N/A Experienced any changes in pain level or No No No management Left Footwear Regular Shoe Regular Shoe Right Footwear Regular Shoe Regular Shoe Pain Scale: 0-10 Numeric Is Patient Pain Free? Yes Yes No - Nurse 1 - General Ulcer Measurement Start: 12/20/22 08:15 Freq: Status: Active Protocol: Activity Type Activity Date Activity User E-sign Co-sign Detail Recorded Client Recorded Date Recorded By Document 12/20/22 08:15 DL [id number] 12/20/22 08:20 DL Document 12/25/22 08:32 AK [id number] 12/25/22 08:41 AK Document 12/27/22 12:55 DL [id number] 12/27/22 13:07 DL Document 01/01/23 08:15 DL Desktop 01/01/23 08:20 DL Document 01/08/23 08:22 ML [id number] 01/08/23 08:29 ML Document 01/15/23 08:26 AK [id number] 01/15/23 08:28 AK Document 01/15/23 08:28 AK [id number] 01/15/23 08:29 AK 12/20/22 12/25/22 12/27/22 08:15 08:32 12:55 Wound Center Nurse 1 #2 LLE post -Combined with other wound -Current Size (cm) - Length -Current Size (cm) - Width -Current Size (cm) - Depth -Total Square Cm -Photo Taken -Tunneling -Undermining/Tunneling -Circular Undermining -Change in Wound Grade/Stage -Exudate Amt -Exudate Type -Wound Margin -Granulation Amt -Granulation Quality -Slough/Fibrin -Necrosis Amt -Necrotic Tissue Type -Structure Exposed -Texture ([place]-wound Skin Appearance) -Moisture ([place]-wound Skin Appearance) -Color ([place]-wound Skin Appearance) -Temperature ([place]-wound Skin Appearance) -Tenderness on Palpation ([place]-wound Skin Appearance) -Ulcer Cleansing -Foul Odor after Cleansing -Anesthetic Used #1 left medial ankle -Combined with other wound No -Current Size (cm) - Length 0.1 -Current Size (cm) - Width 0.1 -Current Size (cm) - Depth 0.1 -Total Square Cm 0.01 -Date of Last Picture (Recall this field) -Photo Taken Yes -Tunneling No -Undermining/Tunneling No -Circular Undermining No -Change in Wound Grade/Stage -Exudate Amt None Present None Present -Wound Margin Distinct, Outline Attached -Granulation Amt None Present (0 %) -Granulation Quality N/A -Slough/Fibrin No -Necrosis Amt None Present (0 Medium (34-66%) %) -Necrotic Tissue Type Eschar -Structure Exposed N/A N/A N/A -Texture ([place]-wound Skin Appearance) Scarring No Abnormality, Scarring Assessed -Moisture ([place]-wound Skin Appearance) Dry/Scaly No Abnormality, No Abnormality Assessed -Color ([place]-wound Skin Appearance) Hemosiderin No Abnormality, Hemosiderin Staining Assessed Staining -Temperature ([place]-wound Skin No Abnormality No Abnormality No Abnormality Appearance) (Pt Warm) (Pt Warm) (Pt Warm) -Tenderness on Palpation ([place]-wound No No No Skin Appearance) -Ulcer Cleansing Soap and Water Soap and Water Not Cleansed -Foul Odor after Cleansing No No No -Anesthetic Used 5% Lidocaine Gel -Wound Comment(s) Pt removed Unna Boot to shower last evening. Instructed to not shower until a few hrs before appt. Lower Limb Edema Present No Left Calf (cm) 42.5 41 44 Left Ankle (cm) 26.5 27 27.6 01/01/23 01/08/23 01/15/23 08:15 08:22 08:26 Wound Center Nurse 1 #2 LLE post -Combined with other wound No -Current Size (cm) - Length 0.5 0.1 -Current Size (cm) - Width 0.5 0.1 -Current Size (cm) - Depth 0.2 0.1 -Total Square Cm 0.25 0.01 -Photo Taken Yes Yes -Tunneling No -Undermining/Tunneling No -Circular Undermining No -Change in Wound Grade/Stage No -Exudate Amt Small None Present -Exudate Type Serosanguineous -Wound Margin Distinct, Distinct, Outline Outline Attached Attached -Granulation Amt Large (67-100%) None Present (0 %) -Granulation Quality [place] -Slough/Fibrin Yes -Necrosis Amt None Present (0 Small (1-33%) %) -Necrotic Tissue Type Adherent Slough -Structure Exposed N/A N/A -Texture ([place]-wound Skin Appearance) Scarring No Abnormality, Assessed -Moisture ([place]-wound Skin Appearance) No Abnormality Assessed,Dry/ Scaly -Color ([place]-wound Skin Appearance) Erythema, No Abnormality, Hemosiderin Assessed Staining -Temperature ([place]-wound Skin No Abnormality No Abnormality Appearance) (Pt Warm) (Pt Warm) -Tenderness on Palpation ([place]-wound No Skin Appearance) -Ulcer Cleansing Soap and Water Rinsed/ Irrigated with Saline -Foul Odor after Cleansing No No -Anesthetic Used 5% Lidocaine 5% Lidocaine Gel Gel #1 left medial ankle -Combined with other wound -Current Size (cm) - Length 0.1 0.1 -Current Size (cm) - Width 0.1 0.1 -Current Size (cm) - Depth 0.1 0.1 -Total Square Cm 0.01 0.01 -Date of Last Picture (Recall this field) -Photo Taken Yes Yes -Tunneling -Undermining/Tunneling -Circular Undermining -Change in Wound Grade/Stage -Exudate Amt None Present None Present -Wound Margin Thickened Indistinct, Non -Visible -Granulation Amt Medium (34-66%) Large (67-100%) -Granulation Quality Pale [place] -Slough/Fibrin -Necrosis Amt Medium (34-66%) None Present (0 %) -Necrotic Tissue Type Eschar -Structure Exposed N/A N/A -Texture ([place]-wound Skin Appearance) Scarring Scarring -Moisture ([place]-wound Skin Appearance) Dry/Scaly No Abnormality -Color ([place]-wound Skin Appearance) Hemosiderin Hemosiderin Staining Staining -Temperature ([place]-wound Skin No Abnormality No Abnormality Appearance) (Pt Warm) (Pt Warm) -Tenderness on Palpation ([place]-wound No Skin Appearance) -Ulcer Cleansing Soap and Water Rinsed/ Irrigated with Saline -Foul Odor after Cleansing No -Anesthetic Used 5% Lidocaine Gel -Wound Comment(s) Lower Limb Edema Present Left Calf (cm) 42 43 Left Ankle (cm) 27.5 29.5 01/15/23 08:28 Wound Center Nurse 1 #2 LLE post -Combined with other wound -Current Size (cm) - Length -Current Size (cm) - Width -Current Size (cm) - Depth -Total Square Cm -Photo Taken -Tunneling -Undermining/Tunneling -Circular Undermining -Change in Wound Grade/Stage -Exudate Amt -Exudate Type -Wound Margin -Granulation Amt -Granulation Quality -Slough/Fibrin -Necrosis Amt -Necrotic Tissue Type -Structure Exposed -Texture ([place]-wound Skin Appearance) -Moisture ([place]-wound Skin Appearance) -Color ([place]-wound Skin Appearance) -Temperature ([place]-wound Skin Appearance) -Tenderness on Palpation ([place]-wound Skin Appearance) -Ulcer Cleansing -Foul Odor after Cleansing -Anesthetic Used #1 left medial ankle -Combined with other wound No -Current Size (cm) - Length 0.1 -Current Size (cm) - Width 0.1 -Current Size (cm) - Depth 0.1 -Total Square Cm 0.01 -Date of Last Picture (Recall this 01/15/23 field) -Photo Taken Yes -Tunneling No -Undermining/Tunneling No -Circular Undermining No -Change in Wound Grade/Stage No -Exudate Amt None Present -Wound Margin Distinct, Outline Attached -Granulation Amt None Present (0 %) -Granulation Quality N/A -Slough/Fibrin Yes -Necrosis Amt Small (1-33%) -Necrotic Tissue Type Adherent Slough -Structure Exposed N/A -Texture ([place]-wound Skin Appearance) No Abnormality, Assessed -Moisture ([place]-wound Skin Appearance) Assessed,Dry/ Scaly -Color ([place]-wound Skin Appearance) No Abnormality, Assessed -Temperature ([place]-wound Skin No Abnormality Appearance) (Pt Warm) -Tenderness on Palpation ([place]-wound No Skin Appearance) -Ulcer Cleansing Rinsed/ Irrigated with Saline -Foul Odor after Cleansing No -Anesthetic Used 5% Lidocaine Gel -Wound Comment(s) Lower Limb Edema Present Left Calf (cm) Left Ankle (cm) WC - Nurse 2 - General Ulcer CM Notes Start: 12/20/22 08:15 Freq: Status: Active Protocol: Activity Type Activity Date Activity User E-sign Co-sign Detail Recorded Client Recorded Date Recorded By Document 12/25/22 08:50 MW [id number] 12/25/22 08:56 MW Document 01/01/23 08:27 MW [id number] 01/01/23 08:31 MW Document 01/08/23 08:41 MW [id number] 01/08/23 08:46 MW Document 01/15/23 08:22 MW [id number] 01/15/23 08:28 MW 12/25/22 01/01/23 01/08/23 08:50 08:27 08:41 Wound Center Nurse 2 #2 LLE post -Time 08:41 -Correct Patient Yes -Correct Side, Site, Position Yes -Correct Procedure Yes -Procedure Performed Yes -Type of Procedure Debridement -Clinical Debridement Subcutaneous -Tissue Removed Subcutaneous -Post Debridement (cm) - Length 0.5 -Post Debridement (cm) - Width 0.4 -Post Debridement (cm) - Depth 0.1 -Total Square (Post) (cm) 0.20 -Area of Debridement (cm) - Length 0.5 -Area of Debridement (cm) - Width 0.4 -Total Square (Area) (cm) 0.20 -Tunneling No -Undermining/Tunneling No -Circular Undermining No -Wound/Ulcer Outcome Not Healed -Ulcer Cleansing Rinsed/ Irrigated with Saline -Foul Odor after Cleansing No -Bioengineered Tissue No -Bleeding Controlled with Pressure -Treatment Response Procedure Tolerated Well -Offloading No -Debridement - Subq, 1st 20sq cm Yes #1 left medial ankle -Time 08:50 08:28 08:41 -Correct Patient Yes Yes Yes -Correct Side, Site, Position Yes Yes Yes -Correct Procedure Yes Yes Yes -Procedure Performed No Yes Yes -Type of Procedure Debridement Debridement -Clinical Debridement Subcutaneous Subcutaneous -Tissue Removed Subcutaneous Subcutaneous -Post Debridement (cm) - Length 0.1 0.3 -Post Debridement (cm) - Width 0.1 0.3 -Post Debridement (cm) - Depth 0.1 0.1 -Total Square (Post) (cm) 0.01 0.09 -Area of Debridement (cm) - Length 0.1 0.3 -Area of Debridement (cm) - Width 0.1 0.3 -Total Square (Area) (cm) 0.01 0.09 -Tunneling No No No -Undermining/Tunneling No No No -Circular Undermining No No No -Wound/Ulcer Outcome Not Healed Not Healed Not Healed -Ulcer Cleansing Rinsed/ Rinsed/ Irrigated with Irrigated with Saline Saline -Foul Odor after Cleansing No No -Bioengineered Tissue No No -Bleeding Controlled with Pressure Pressure -Treatment Response Procedure Procedure Tolerated Well Tolerated Well -Offloading No No -Debridement - Subq, 1st 20sq cm Yes No Pain Scale: 0-10 Numeric Is Patient Pain Free? Yes Yes Yes 01/15/23 08:22 Wound Center Nurse 2 #2 LLE post -Time 08:24 -Correct Patient Yes -Correct Side, Site, Position Yes -Correct Procedure Yes -Procedure Performed Yes -Type of Procedure Debridement -Clinical Debridement Subcutaneous -Tissue Removed Subcutaneous -Post Debridement (cm) - Length 0.5 -Post Debridement (cm) - Width 0.3 -Post Debridement (cm) - Depth 0.1 -Total Square (Post) (cm) 0.15 -Area of Debridement (cm) - Length 0.5 -Area of Debridement (cm) - Width 0.3 -Total Square (Area) (cm) 0.15 -Tunneling No -Undermining/Tunneling No -Circular Undermining No -Wound/Ulcer Outcome Not Healed -Ulcer Cleansing Rinsed/ Irrigated with Saline -Foul Odor after Cleansing No -Bioengineered Tissue No -Bleeding Controlled with Pressure -Treatment Response Procedure Tolerated Well -Offloading No -Debridement - Subq, 1st 20sq cm Yes #1 left medial ankle -Time 08:26 -Correct Patient Yes -Correct Side, Site, Position Yes -Correct Procedure Yes -Procedure Performed Yes -Type of Procedure Debridement -Clinical Debridement Subcutaneous -Tissue Removed Subcutaneous -Post Debridement (cm) - Length 0.1 -Post Debridement (cm) - Width 0.1 -Post Debridement (cm) - Depth 0.1 -Total Square (Post) (cm) 0.01 -Area of Debridement (cm) - Length 0.1 -Area of Debridement (cm) - Width 0.1 -Total Square (Area) (cm) 0.01 -Tunneling No -Undermining/Tunneling No -Circular Undermining No -Wound/Ulcer Outcome Not Healed -Ulcer Cleansing Rinsed/ Irrigated with Saline -Foul Odor after Cleansing No -Bioengineered Tissue No -Bleeding Controlled with Pressure -Treatment Response Procedure Tolerated Well -Offloading No -Debridement - Subq, 1st 20sq cm No Pain Scale: 0-10 Numeric Is Patient Pain Free? Yes WC - Nurse 3 - General Ulcer D/C NN Start: 12/20/22 08:15 Freq: Status: Active Protocol: Activity Type Activity Date Activity User E-sign Co-sign Detail Recorded Client Recorded Date Recorded By Document 12/20/22 08:15 DL [id number] 12/20/22 08:20 DL Document 12/25/22 09:14 DL [id number] 12/25/22 09:18 DL Document 12/27/22 12:55 DL [id number] 12/27/22 13:07 DL Document 01/01/23 08:37 ML [id number] 01/01/23 08:38 ML Document 01/08/23 09:02 DL [id number] 01/08/23 09:03 DL Document 01/15/23 08:37 AK [id number] 01/15/23 08:38 AK 12/20/22 12/25/22 12/27/22 08:15 09:14 12:55 Vital Signs Temperature (97.8 F-99.1 F) 96.5 F L 97.5 F L Temperature Source Temporal Temporal Pulse Rate (60-100) 69 72 Pulse Location Monitor Monitor Respiratory Rate (12-18) 20 H 18 Respiratory rate source Observation Observation Blood Pressure (90/60-120/80) 156/92 H 154/93 H Blood Pressure Mean 113 113 Source Monitor Monitor Comment Removed 3M to shower last evening. Pain Scale: 0-10 Numeric Is Patient Pain Free? Yes Yes Yes Wound Care Center Nurse 3 #2 LLE post -Ulcer Cleansing -Foul Odor after Cleansing -Negative Pressure Wound Therapy -Primary Dressing Applied -Other Dressing -Primary Dressing Covered/Secured with #1 left medial ankle -Ulcer Cleansing Soap and Water Rinsed/ Rinsed/ Irrigated with Irrigated with Saline Saline -Foul Odor after Cleansing No No No -Negative Pressure Wound Therapy -Primary Dressing Applied -Other Dressing Unna Boot unna Unna -Primary Dressing Covered/Secured with Right -Lotion applied to leg before No compression wrap -Stockings -Other Left -Multi-Layered Wrap Application Unna Boot - Unna Boot - Unna Boot - Left ($) Left ($) Left ($) -Stockings Treatment Response Procedure Procedure Procedure Tolerated Well Tolerated Well Tolerated Well WC - Visit Discharge Discharge Condition Stable Stable Stable Ambulatory Status Ambulatory Ambulatory Ambulatory Transportation Private Auto Private Auto Private Auto Medication Reconcilliation completed & provided to patient/care provider Clinical Summary of Care Provided Notes: Dressing applied per Genia Drake RN today in clinic . 01/01/23 01/08/23 01/15/23 08:37 09:02 08:37 Vital Signs Temperature (97.8 F-99.1 F) Temperature Source Pulse Rate (60-100) Pulse Location Respiratory Rate (12-18) Respiratory rate source Blood Pressure (90/60-120/80) Blood Pressure Mean Source Comment Pain Scale: 0-10 Numeric Is Patient Pain Free? Yes Yes Yes Wound Care Center Nurse 3 #2 LLE post -Ulcer Cleansing Rinsed/ Rinsed/ Irrigated with Irrigated with Saline Saline -Foul Odor after Cleansing No No -Negative Pressure Wound Therapy N/A -Primary Dressing Applied C Hydrogel ($) -Other Dressing hydrogel -Primary Dressing Covered/Secured with Dry Gauze, Dry Gauze & Secured with Roll Gauze, Tape Secured with Tape #1 left medial ankle -Ulcer Cleansing Rinsed/ Rinsed/ Rinsed/ Irrigated with Irrigated with Irrigated with Saline Saline Saline -Foul Odor after Cleansing No No No -Negative Pressure Wound Therapy N/A -Primary Dressing Applied C Hydrogel ($) -Other Dressing hydrogel hydrogel -Primary Dressing Covered/Secured with Dry Gauze, Dry Gauze, Dry Gauze & Secured with Secured with Roll Gauze, Tape Tape Secured with Tape Right -Lotion applied to leg before compression wrap -Stockings Yes -Other own Left -Multi-Layered Wrap Application -Stockings Yes Treatment Response Procedure Tolerated Well WC - Visit Discharge Discharge Condition Stable Stable Ambulatory Status Ambulatory Ambulatory Transportation Private Auto Private Auto Medication Reconcilliation completed & Yes provided to patient/care provider Clinical Summary of Care Provided Yes Notes: Assessment/Plan Assessment/Plan (1) Venous stasis ulcer of ankle with fat layer exposed: CODE(S): I83.003 - Varicose veins of unspecified lower extremity with ulcer of ankle; L97.302 - 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 (2) Chronic venous hypertension w/ulcer and inflammation involv left side: CODE(S): I87.332 - Chronic venous hypertension (idiopathic) with ulcer and inflammation of left lower extremity; L97.929 - Non-pressure chronic ulcer of unspecified part of left lower leg with unspecified severity (3) Chronic venous insufficiency: CODE(S): I87.2 - Venous insufficiency (chronic) (peripheral) (4) Lipodermatosclerosis: CODE(S): I83.10 - Varicose veins of unspecified lower extremity with infl ammation (5) Left leg swelling: CODE(S): M79.89 - Other specified soft tissue disorders (6) Leg edema, left: CODE(S): R60.0 - Localized edema (7) Hypertension: CODE(S): I10 - Essential (primary) hypertension (8) Tobacco abuse disorder: CODE(S): Z72.0 - Tobacco use (9) Tobacco abuse counseling: CODE(S): Z71.6 - Tobacco abuse counseling (10) History of seizures: CODE(S): Z87.898 - Personal history of other specified conditions (11) History of hemorrhoidectomy: CODE(S): Z98.890 - Other specified postprocedural states (12) History of hand surgery: CODE(S): Z98.890 - Other specified postprocedural states PLAN: Plan This is a 62-year-old obese male who presented with an ulceration overlying the left medial malleolus. This appears to be related to chronic venous hypertension with inflammation and chronic venous insufficiency. The patient also experiences swelling and edema in his lower extremities, more pronounced at the end of the day. A lengthy discussion has been undertaken as to the appropriate means of management relative to the patient's chronic venous disease. Leg elevation has been recommended. The patient has been encouraged to sleep on a flat surface at night. His legs are to be at heart level, or higher, both while sleeping and during daytime hours. Prolonged idle sitting with his legs in a dependent position has been discouraged. Activity has been encouraged, with recruitment of the calf and foot muscle pumps. Weight loss has also been recommended. 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 He works 8-hour shifts, and 13 days out of every 2 weeks. Upon the patient's return to work, increased swelling and edema in his lower extremities was noted, as well as a new ulceration on the left posterior calf. As result, we have extended his hiatus from work for another several weeks. This will enable the patient to be at home, with legs elevated, a measure felt to be necessary to achieve wound healing. We are to continue compression to the left lower extremity by means of graduated compression stockings of 20 to 30 mmHg compression, knee-high length, which the patient has recently obtained. Collagen hydrogel is to be applied topically to each of the 2 ulceration sites, on the left medial malleolus and the left posterior calf. The collagen hydrogel will be applied on a daily basis. The patient was also recently diagnosed with superficial thrombophlebitis in the right lower extremity, for which he is also wearing graduated compression stockings of 20 to 30 mmHg compression. Recent laboratory results from December 13, 2022, have been reviewed, with results as follows: Glucose 97, BUN 20, creatinine 1.23, total protein 7.6, albumin 3.6, calcium 8.9, AST 20, alkaline phosphatase 97, ALT 40, total bilirubin 0.40, cholesterol 175, triglycerides 184, sodium 140, potassium 4.4, chloride 103, HDL 42, LDL 96, VLDL 37. A venous duplex examination recently performed revealed superficial thrombophlebitis involving the right great saphenous vein and an accessory branch. 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 Once again, the patient has been encouraged to elevate his lower extremities, remain active, avoid prolonged idle standing and sitting, and to lose weight. There has been improvement in the patient's swelling and edema while at home, but the patient suffered a setback with only 1 week back on the job. The patient is to wear his graduated compression stockings of 20 to 30 mmHg compression bilaterally, as acute superficial thrombophlebitis has been recently diagnosed in the right lower extremity, and ulcerations related to his venous disease are present on the left side. Nutritional optimization has been recommended. The patient has been advised to cease his smoking habit. Given the manifestations related to the patient's chronic venous disease, and findings on his recent venous duplex examination, it is felt that the patient is a candidate for endovenous laser ablation of the left great saphenous vein, a matter which has been discussed with the patient and his significant other at the bedside several times. The indications and risks have been explained. Expectations have been described. The patient's questions have been answered. The patient is to return in 2 weeks for reassessment. As mentioned, compression is to be administered bilaterally with graduated compression stockings of 20 to 30 mmHg compression, knee-high length, worn on a daily basis. The patient has indicated his desire to proceed with definitive management of the venous disease in his left lower extremity, and preauthorization will be sought for endovenous laser ablation of the left great saphenous vein. Total time: 29 minutes
== END 2023-01-15 23:59 | disposition home or self-care (01) ==
LOC: WC 08:00
PROVIDERS: PCP Internal Medicine; Referring Provider Surgery; Visit Provider Surgery
DX: I83.223 Varicose veins of left lower extremity with both ulcer of ankle and inflammation (principal); L97.322 Non-pressure chronic ulcer of left ankle with fat layer exposed; Z68.41 Body mass index [BMI] 40.0-44.9, adult; R60.0 Localized edema; F17.210 Nicotine dependence, cigarettes, uncomplicated; I10 Essential (primary) hypertension; E66.9 Obesity, unspecified; M79.89 Other specified soft tissue disorders; Z86.718 Personal history of other venous thrombosis and embolism; Z79.899 Other long term (current) drug therapy
CPT/HCPCS: 11042; 29580; 99213; G0463

== ENCOUNTER → 2023-01-25 | Outpatient (CLI) | payer BC, SELFPAY | END | disposition home or self-care (01) | LOC: SL 20:03 | PROVIDERS: PCP Internal Medicine; Referring Provider Internal Medicine; Visit Provider Internal Medicine | DX: G47.33 Obstructive sleep apnea (adult) (pediatric) (principal) | CPT/HCPCS: 95811 ==

== ENCOUNTER 2023-02-14 09:00 | Outpatient (RCR) | payer BC, SELFPAY ==
[2023-01-16 00:27] VITALS: BP 164/93; PULSE 64; RESP 18; TEMP 36.1; BMI 40.3
[2023-01-29 08:09] VITALS: BP 150/78; PULSE 70; RESP 20; TEMP 36.4; BMI 40.3
--- NOTE | 2023-01-29 13:25 | PCM.WC.HP ---
History of Present Illness Date of Service: 01/29/23 Chief Complaint: Venous stasis ulceration, chronic venous hypertension with inflammation and ulceration, leg swelling, leg edema?left lower extremity History of Wound: This is a 62-year-old obese male who presented with an ulceration overlying the left medial malleolus. According to the patient and his significant-other female friend, the ulceration had been present for more than 2 years. The patient feels as though it is due to a foreign body which became stuck between his boot and skin causing a pressure ulceration. However, from a clinical standpoint, it is much more likely that this is related to chronic venous hypertension and associated venous disease. The patient relates swelling and edema in his lower extremities, which is worse at the end of each day. 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 He also sleeps in a recliner, although he insists that his lower extremities are at heart level, or higher. He is not very active during his time at home, often sitting for prolonged periods. The patient is a smoker, smoking 1 pack of cigarettes per day for many years. Appropriate counseling has been undertaken as to the adverse effects of tobacco use. With respect to his ulceration, he was initially placed on oral Augmentin in the Emergency Department for cellulitis, and completed a course of doxycycline more recently, as prescribed by his primary care physician. The patient denies a history of deep vein thrombosis. The patient suffers from hypertension and obesity. His BMI is 40.3. The patient's history is negative for myocardial infarction, cerebrovascular accident, diabetes mellitus, pulmonary disease, renal disease, thyroid disease, and hyperlipidemia. [facility] Medical History Chronic venous hypertension w/ulcer and inflammation involv left side Chronic venous insufficiency DVT (deep venous thrombosis) Hx of hypoglycemia Hx of migraines Hx of seasonal allergies Hypertension Lipodermatosclerosis Seizures Venous stasis ulcer of ankle with fat layer exposed Wears glasses Home Medications amlodipine 5 mg tablet 5 mg PO DAILY #30 tabs 11/19/22 [Rx Last Taken Unknown] blood pressure monitor #1 ea 12/12/22 [Rx Last Taken Unknown] ibuprofen 800 mg tablet 800 mg PO BID PRN 12/12/22 [History Last Taken Unknown] nicotine (polacrilex) 4 mg buccal lozenge 4 mg buccal Q4H PRN nicotine cravings #108 ea 12/12/22 [Rx Last Taken Unknown] escitalopram oxalate 10 mg tablet (Lexapro) 10 mg PO DAILY #30 tabs 01/08/23 [Rx Last Taken Unknown] lisinopril 20 mg-hydrochlorothiazide 12.5 mg tablet 1 tab PO DAILY #30 tabs 01/08/23 [Rx Last Taken Unknown] nicotine 21 mg/24 hr daily transdermal patch (Nicoderm CQ) 1 patch transdermal DAILY #28 ea 01/21/23 [Rx Last Taken Unknown] Allergy/AdvReac Type Severity Reaction Status Date / Time No Known Allergies Allergy Verified 01/22/23 16:33 Family History Father Angina at rest Anxiety Diabetes Myocardial infarction Heart disease Hypertension Hyperlipidemia Respiratory disease Cancer esophageal Mother Cancer lung Depression Hormone disorder Seizures Osteoporosis Brother Myocardial infarction Hyperlipidemia Surgical History H/O foot surgery History of hemorrhoidectomy History of nasal surgery Hx of hand surgery Social History household members: significant other housing: house current occupational status: employed current occupation: [employer] sexually active: Yes Smoking Status: Current every day smoker tobacco type: cigarettes quit status: considering quitting alcohol intake: current alcohol intake frequency: holidays/special occasions only substance use type: marijuana what type of physical activity do you participate in: walking and additional details: lifting frequency: 5-6 times per week seatbelt use: always do you feel safe at home: Yes Vital Signs Vital Signs Vital Signs: 01/29/23 08:09 Temperature 97.5 F L Temperature Source Temporal Pulse Rate 70 Respiratory Rate 20 H Blood Pressure 150/78 H Blood Pressure Mean 102 Blood Pressure Source Monitor Weight Weight: 285 lb Body Mass Index (BMI) 40.3 Physical Exam Const alert, oriented x3, no apparent distress and well nourished Constitutional Narrative: The patient is obese. He is friendly and conversant. General Appearance: cooperative, comfortable, well kempt and well developed Orientation / Consciousness: awake, oriented to person, oriented to place and oriented to time Exam Limitations: no limitations HEENT normocephalic, head/scalp atraumatic and hearing grossly normal bilaterally Head and Scalp: normal to inspection, normocephalic and atraumatic External Ear: external ears normal Eyes PERRL and EOMs intact bilaterally General Eye: normal appearance of both eyes Neck full ROM Resp normal respiratory effort, normal air movement, no retractions and no use of accessory muscles Effort and Inspection: able to speak in complete sentences Extremity no calf tenderness General Extremity: Negative for clubbing or cyanosis Skin Wound Narrative: The venous ulcerations in the patient's left lower extremity are now completely healed and epithelialized. Mild left lower extremity swelling and edema are noted. Hyperpigmentation and lipodermatosclerosis are noted in the gaiter areas bilaterally, more pronounced in the left lower extremity. Neuro oriented x3, CN's II-XII intact bilaterally, moves all extremities and no focal motor deficits Sensorium / Orientation: awake, alert, oriented to person, oriented to place and oriented to time Psych Appearance: grossly normal and appropriate Attitude: calm Activity / Motor Behavior: appropriate eye contact Speech: normal speech Mood & Affect: euthymic mood Thought Process: normal thought process Thought Content: normal thought content Attention / Concentration: attention grossly intact Debridement Note Debridement Note No debridement was completed: No debridement was completed today (There are no open wounds or ulcerations.) Post-Debridement Measurements and Additional Note: Post-Debridement Measurements/Treatment - Nurse 1 - General Ulcer Assessment Start: 01/29/23 08:09 Freq: Status: Active Protocol: MOSES.LOWBRETTT Activity Type Activity Date Activity User E-sign Co-sign Detail Recorded Client Recorded Date Recorded By Document 01/29/23 08:09 [id number] 01/29/23 08:15 DL 01/29/23 08:09 - Today's Visit Information Type of service Follow-up Visit (Physician/ECHOCARDIOGRAPHY TECH ) Arrival Mode Ambulatory Transfer Assistance None Patient Identification Verified (Name & Yes ) Patient Requires Transmission-Based No Precautions Height and Weight Body Mass Index (BMI) 40.3 BMI Classification Obese Vital Signs Temperature (97.8 F-99.1 F) 97.5 F L Temperature Source Temporal Pulse Rate (60-100) 70 Pulse Location Monitor Respiratory Rate (12-18) 20 H Respiratory rate source Observation Blood Pressure (90/60-120/80) 150/78 H Blood Pressure Mean 102 Source Monitor History Since Last Visit- (Skip if this is Patient's initial visit) Have you changed medications since your No last visit? Any new allergies or adverse reactions No Had a fall/change in ADL's that may No increase risk of falls Signs or symptoms of abuse and/or No neglect since last visit Have you been in the hospital since your No last visit? Has dressing in place as prescribed Yes Has compression in place as prescribed Yes Has offloadiing in place as prescribed N/A Experienced any changes in pain level or No management Pain Scale: 0-10 Numeric Is Patient Pain Free? Yes WC - Nurse 1 - General Ulcer Measurement Start: 01/29/23 08:09 Freq: Status: Active Protocol: Activity Type Activity Date Activity User E-sign Co-sign Detail Recorded Client Recorded Date Recorded By Document 01/29/23 08:09 DL [id number] 01/29/23 08:15 DL 01/29/23 08:09 Wound Center Nurse 1 #2 LLE post -Current Size (cm) - Length 0 -Current Size (cm) - Width 0 -Current Size (cm) - Depth 0 -Total Square Cm 0 -Photo Taken Yes -Exudate Amt None Present -Wound Margin Flat & Intact -Granulation Amt Large (67-100%) -Granulation Quality [place] -Necrosis Amt None Present (0 %) -Structure Exposed N/A -Texture ([place]-wound Skin Appearance) Scarring -Moisture ([place]-wound Skin Appearance) Dry/Scaly -Color ([place]-wound Skin Appearance) Hemosiderin Staining -Temperature ([place]-wound Skin No Abnormality Appearance) (Pt Warm) -Tenderness on Palpation ([place]-wound No Skin Appearance) -Ulcer Cleansing Wound Cleanser -Foul Odor after Cleansing No #1 left medial ankle -Current Size (cm) - Length 0.1 -Current Size (cm) - Width 0.1 -Current Size (cm) - Depth 0.1 -Total Square Cm 0.01 -Photo Taken Yes -Exudate Amt None Present -Wound Margin Flat & Intact -Granulation Amt Large (67-100%) -Granulation Quality [place] -Necrosis Amt None Present (0 %) -Structure Exposed N/A -Texture ([place]-wound Skin Appearance) Scarring -Moisture ([place]-wound Skin Appearance) Dry/Scaly -Color ([place]-wound Skin Appearance) Hemosiderin Staining -Temperature ([place]-wound Skin No Abnormality Appearance) (Pt Warm) -Tenderness on Palpation ([place]-wound No Skin Appearance) -Ulcer Cleansing Rinsed/ Irrigated with Saline -Foul Odor after Cleansing No Right Calf (cm) 43.7 Right Ankle (cm) 28 WC - Nurse 2 - General Ulcer CM Notes Start: 01/29/23 08:09 Freq: Status: Active Protocol: Activity Type Activity Date Activity User E-sign Co-sign Detail Recorded Client Recorded Date Recorded By Document 01/29/23 11:47 PL [id number] 01/29/23 11:48 PL 01/29/23 11:47 Wound Center Nurse 2 #2 LLE post -Procedure Performed No -Wound/Ulcer Outcome Healed- Epithelialized #1 left medial ankle -Procedure Performed No -Wound/Ulcer Outcome Healed- Epithelialized Pain Scale: 0-10 Numeric Is Patient Pain Free? Yes - Nurse 3 - General Ulcer D/C NN Start: 01/29/23 08:09 Freq: Status: Active Protocol: Activity Type Activity Date Activity User E-sign Co-sign Detail Recorded Client Recorded Date Recorded By Document 01/29/23 08:34 DL [id number] 01/29/23 08:35 DL 01/29/23 08:34 Wound Care Center Nurse 3 #2 LLE post -Ulcer Cleansing Rinsed/ Irrigated with Saline -Foul Odor after Cleansing No Right -Stockings Yes Left -Stockings Yes Treatment Response Procedure Tolerated Well Pain Scale: 0-10 Numeric Is Patient Pain Free? Yes WC - Visit Discharge Discharge Condition Stable Ambulatory Status Ambulatory Transportation Private Auto Notes: Healed/ Discharged Assessment/Plan Assessment/Plan (1) Venous stasis ulcer of ankle with fat layer exposed: CODE(S): I83.003 - Varicose veins of unspecified lower extremity with ulcer of ankle; L97.302 - 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 (2) Chronic venous hypertension w/ulcer and inflammation involv left side: CODE(S): I87.332 - Chronic venous hypertension (idiopathic) with ulcer and inflammation of left lower extremity; L97.929 - Non-pressure chronic ulcer of unspecified part of left lower leg with unspecified severity (3) Chronic venous insufficiency: CODE(S): I87.2 - Venous insufficiency (chronic) (peripheral) (4) Lipodermatosclerosis: CODE(S): I83.10 - Varicose veins of unspecified lower extremity with inflammation (5) Left leg swelling: CODE(S): M79.89 - Other specified soft tissue disorders (6) Leg edema, left: CODE(S): R60.0 - Localized edema (7) Hypertension: CODE(S): I10 - Essential (primary) hypertension (8) Tobacco abuse disorder: CODE(S): Z72.0 - Tobacco use (9) Tobacco abuse counseling: CODE(S): Z71.6 - Tobacco abuse counseling (10) History of seizures: CODE(S): Z87.898 - Personal history of other specified conditions (11) History of hemorrhoidectomy: CODE(S): Z98.890 - Other specified postprocedural states (12) History of hand surgery: CODE(S): Z98.890 - Other specified postprocedural states PLAN: Plan This is a 62-year-old obese male who presented with an ulceration overlying the left medial malleolus. This appeared to be related to chronic venous hypertension with inflammation and chronic venous insufficiency. The patient also experiences swelling and edema in his lower extremities, more pronounced at the end of the day. A lengthy discussion has been undertaken as to the appropriate means of management relative to the patient's chronic venous disease. Leg elevation has been recommended. The patient has been encouraged to sleep on a flat surface at night. His legs are to be at heart level, or higher, both while sleeping and during daytime hours. Prolonged idle sitting with his legs in a dependent position has been discouraged. Activity has been encouraged, with recruitment of the calf and foot muscle pumps. Weight loss has also been recommended. We are to continue compression to the left lower extremity by means of graduated compression stockings of 20 to 30 mmHg compression, knee-high length, which the patient has in his possession. The venous ulceration in the patient's left lower extremity has now completely healed and epithelialized. As result, the patient is to be discharged, and will no longer require follow-up in the wound care facility. However, the patient was recently diagnosed with superficial thrombophlebitis in the right lower extremity, for which conservative treatment measures have been implemented, including the use of graduated compression stockings, active lifestyle, and leg elevation. We are to repeat the venous duplex examination within the next several weeks, to reassess the status of the superficial thrombophlebitis in the patient's right lower extremity. A venous duplex examination also recently revealed valvular incompetence of the left great saphenous vein below the knee. Recent laboratory results from December 13, 2022, have been reviewed, with results as follows: Glucose 97, BUN 20, creatinine 1.23, total protein 7.6, albumin 3.6, calcium 8.9, AST 20, alkaline phosphatase 97, ALT 40, total bilirubin 0.40, cholesterol 175, triglycerides 184, sodium 140, potassium 4.4, chloride 103, HDL 42, LDL 96, VLDL 37. Once again, the patient has been encouraged to elevate his lower extremities, remain active, avoid prolonged idle standing and sitting, and to lose weight. The patient is to wear his graduated compression stockings of 20 to 30 mmHg compression bilaterally. The patient has been advised to cease his smoking habit. Given the manifestations related to the patient's chronic venous disease, and findings on his recent venous duplex examination, it is felt that the patient is a candidate for endovenous laser ablation of the left great saphenous vein, a matter which has been discussed with the patient and his significant other at the bedside several times, and again today. The indications and risks have been explained. Expectations have been described. The patient's questions have been answered. The patient is to be discharged from the wound care facility, with anticipation that preauthorization will be obtained and the patient will be scheduled for endovenous laser ablation of the left great saphenous vein in the near future. The patient has indicated his desire to proceed with definitive management of the venous disease in his left lower extremity. Total time: 26 minutes
--- NOTE | 2023-02-14 08:35 | EKG12_ITS ---
Test Reason : PREOP Blood Pressure : / mmHG Vent. Rate : 069 BPM Atrial Rate : 069 BPM P-R Int : 184 ms QRS Dur : 070 ms QT Int : 384 ms P-R-T Axes : 037 008 043 degrees QTc Int : 411 ms Normal sinus rhythm Normal ECG Confirmed by LOLIS STEINER, JUNIOR ([id number]), commercial production editor ANTONINO GACRIA ([id number]) on 02/18/2023 10:42:45 AM Referred By: Edgar Gonzales Confirmed By:SHERINE DANIELLE MD
--- NOTE | 2023-02-14 08:38 | VDLE_ITS ---
Reason For Study: venous insufficiency RIGHT LEFT CFV is compressible, spontaneous, phasic, CFV is compressible, spontaneous, phasic, competent and demonstrates normal competent, and demonstrates normal augmentation. augmentation. FV is compressible, spontaneous, phasic, FV is compressible, spontaneous, phasic, competent and demonstrates normal competent and demonstrates normal augmentation. augmentation. POP V is compressible, spontaneous, phasic, POP V is compressible, spontaneous, phasic, competent and demonstrates normal competent and demonstrates normal augmentation. augmentation. T/P Trunk is compressible. T/P Trunk is compressible. PTV is compressible. PTV is compressible. RT PerV is compressible. LT PerV is compressible. GSV is noncompressible from mid thigh to SFJ is competent and measures .96 cm. groin. ASV connected to the GSV is GSV proximal thigh measures .55 x .52 cm. noncompressible for a short segment. GSV at knee measures .57 x .57 cm. ASV below the knee connects to the ASV mid GSV INCOMPETENT throughout for greater than thigh. 0.5 seconds. SFJ is competent and measures .71 cm. SSV proximal calf is INCOMPETENT for greater GSV proximal thigh measures .53 x .55 cm. than 0.5 seconds and measures .65 x .77 cm. GSV at knee measures .66 x .73 cm. ASV proximal calf is INCOMPETENT for greater GSV INCOMPETENT throughout for greater than than 0.5 seconds and measures .48 x .52 cm. 0.5 seconds. SSV at junction is INCOMPETENT for greater SSV proximal calf is competent and than 0.5 seconds and measures .44 x .48 cm. measures .4 x .39 cm. SSV at junction is INCOMPETENT for greater than 0.5 seconds and measures .54 x .57 cm. ASV mid thigh is INCOMPETENT for greater than 0.5 seconds and measures .63 x .74 cm. ASV proximal calf is INCOMPETENT for greater than 0.5 seconds and measures .4 x .47 cm. Procedure This is a venous duplex using B-mode, color flow and spectral Doppler. Exam performed in department. The exam was diagnostic. A preliminary report was called and/or faxed to Dr. Gonzales. VL/Venous Duplex US - Truong Extrem Interpretation Summary Deep veins of the lower extremities are bilaterally patent and compressible seg mentally. There is no evidence of deep vein thrombosis on either side. Valvular competence appears in tact within the proximal deep venous systems bilaterally. Sapheno-femoral junctions are bilater ally competent . The left great saphenous vein appears patent and compressible segmentally. Thrombos is is noted within the right great saphenous vein from the mid-thigh to the groin, with both acute and chronic features. The thrombosis is not in proximity to the right sapheno-femoral junct ion. Thrombosis is also noted in an accessory saphenous vein in the right thigh. The left great sa phenous vein is incompetent. The right small saphenous vein is incompetent at the sapheno-popli teal junction. The left small saphenous vein is patent and incompetent. Accessory saphenous veins in the right mid- thigh and proximal calf are incompetent. The accessory saphenous vein in the le ft proximal calf is incompetent. Ordering Physician: Edgar Gonzales Performed By: Rob Irizarry RVT
== END 2023-02-15 23:59 | disposition home or self-care (01) ==
LOC: WC 09:00
PROVIDERS: PCP Internal Medicine; Referring Provider Surgery; Visit Provider Surgery
DX: Z09 Encounter for follow-up examination after completed treatment for conditions other than malignant neoplasm (principal); Z68.41 Body mass index [BMI] 40.0-44.9, adult; F17.210 Nicotine dependence, cigarettes, uncomplicated; R60.0 Localized edema; M79.89 Other specified soft tissue disorders; E66.9 Obesity, unspecified; Z79.899 Other long term (current) drug therapy; I10 Essential (primary) hypertension
CPT/HCPCS: 93005; 93970; 99213; G0463

== ENCOUNTER → 2023-02-14 | Outpatient (CLI) | payer BC, SELFPAY | END | disposition home or self-care (01) | LOC: SL 12:24 | PROVIDERS: PCP Internal Medicine; Visit Provider Internal Medicine | DX: Z46.89 Encounter for fitting and adjustment of other specified devices (principal) ==

== ENCOUNTER → 2023-02-26 | Outpatient (CLI) | payer BC, SELFPAY ==
[2023-02-26 10:02] LABS: Hematocrit 48.7 % (40-54); Hemoglobin 16.3 g/dL (13.0-16.5); Mean Corp Hgb Conc 33.5 g/dL (32-36); Mean Corpuscular Hgb 29.7 pg (27.0-32.0); Mean Corpuscular Volume 88.7 fL (80-94); Mean Platelet Vol. 10.5 fl (6.2-12.0); Platelet Count 226 K/mm3 (150-450); RBC Distribution Width CV 12.9 % (11.6-14.6); RBC Distribution Width SD 42.1 fl (35.1-43.9); Red Blood Count 5.49 M/mm3 (4.6-6.2); White Blood Count 6.8 K/mm3 (4.4-11.0)
[2023-02-26 10:18] LABS: Anion Gap 6 (5-15); BUN 21 mg/dL (7-18); BUN/Creat Ratio 21.7 RATIO (10-20); Calcium,Total 8.6 mg/dL (8.5-10.1); Chloride 103 mmol/L (98-107); Creatinine, Serum 0.97 mg/dL (0.70-1.30); EST Glomerular Filtration Rate 84 mL/min (>60); Est Glom Filt Rate - Afr Amer 101 mL/min (>60); Glucose 97 mg/dL (74-106); Sodium Level 136 mmol/L (136-145)
== END | disposition home or self-care (01) ==
LOC: PAT 03-25 18:07
PROVIDERS: PCP Internal Medicine; Referring Provider Surgery; Visit Provider Surgery
DX: Z01.818 Encounter for other preprocedural examination (principal)
CPT/HCPCS: 36415; 80048; 85027

== ENCOUNTER → 2023-04-09 | Outpatient (CLI) | payer BC, SELFPAY ==
[2023-04-13 15:07] LABS: Testosterone, % Free 1.85 % (1.50-4.20); Testosterone, Free 4.07 ng/dL (5.00-21.00); Testosterone, Total 220 ng/dL (264-916)
== END | disposition home or self-care (01) ==
LOC: BIMLAB 14:15
PROVIDERS: PCP Internal Medicine; Visit Provider Internal Medicine
DX: N39.43 Post-void dribbling (principal); N52.9 Male erectile dysfunction, unspecified
CPT/HCPCS: 36415; 84153; 84402; 84403

== ENCOUNTER → 2023-05-09 | Outpatient (CLI) | payer BC, SELFPAY ==
--- NOTE | 2023-05-09 15:02 | VDLE_ITS ---
Reason For Study: HX Rt LE Superficial Thrombophlebitis RIGHT LEFT A segment of Rt GSV at mid thigh is partially CFV is compressible, spontaneous, phasic, compressible with echogenic intraluminal competent, and demonstrates normal filling. partial flow is noted in color augmentation. doppler. CFV is compressible, spontaneous, phasic, competent and demonstrates normal augmentation. FV is compressible, spontaneous, phasic, competent and demonstrates normal augmentation. POP V is compressible, spontaneous, phasic, competent and demonstrates normal augmentation. T/P Trunk is compressible. PTV is compressible. RT PerV is compressible. Procedure This is a venous duplex using B-mode, color flow and spectral Doppler. Exam performed in department. The exam was diagnostic. Disease regression compared to prevoius study on 02/14/2023. VL/Venous Duplex US, Unilateral Interpretation Summary Deep veins of the right lower extremity are patent and compressible segmentally . There is no evidence of right lower extremity deep vein thrombosis. Valvular competence cody ears intact within the proximal deep venous system on the right . Chronic venous changes are noted in the right great saphenous vein in the right mid-thigh. The left common femoral vein is patent a nd compressible . Ordering Physician: Edgar Gonzales Referring Physician: Edgar Gonzales Performed By: Domenic Suggs RVT
== END | disposition home or self-care (01) ==
LOC: CVS 15:00
PROVIDERS: PCP Internal Medicine; Referring Provider Surgery; Visit Provider Surgery
DX: I80.01 Phlebitis and thrombophlebitis of superficial vessels of right lower extremity (principal)
CPT/HCPCS: 93971

== ENCOUNTER → 2023-06-20 | Outpatient (CLI) | payer BC, SELFPAY ==
[2023-06-20 18:31] LABS: Follicle Stimulating Hormone 6.5 mIU/mL; Luteinizing Hormone 7.3 mIU/mL; Prolactin 6.2 ng/mL
== END | disposition home or self-care (01) ==
LOC: LAB 15:54
PROVIDERS: PCP Internal Medicine; Referring Provider Nurse Practitioner; Visit Provider Nurse Practitioner
DX: E29.1 Testicular hypofunction (principal)
CPT/HCPCS: 36415; 83001; 83002; 84146

== ENCOUNTER 2024-11-25 22:25 | Inpatient (IN) | payer BC, SELFPAY ==
[2024-11-25 22:26] VITALS: BP 119/102; PULSE 97; RESP 22; TEMP 37.2; O2SAT 99; BMI 37.0
[2024-11-25 22:31] VITALS: O2SAT 96
--- NOTE | 2024-11-25 22:51 | EKG12_ITS ---
Test Reason : SOB Blood Pressure : */* mmHG Vent. Rate : 91 BPM Atrial Rate : 91 BPM P-R Int : 178 ms QRS Dur : 92 ms QT Int : 372 ms P-R-T Axes : 47 33 31 degrees QTcB Int : 457 ms Normal sinus rhythm T wave abnormality, consider anterior ischemia Abnormal ECG Confirmed by Suresh Quintana ([id number]), associate editor ÁLVARO OROZCO ([id number]) on 11/26/2024 10:22:46 AM Referred By: BRIT Confirmed By: Suresh Quintana
[2024-11-25 23:02] LABS: Absolute Lymphocyte Count 4.02 X10^3/uL (0.83-4.51); Absolute Neutrophil Count 6.7 X10^3/uL (2.0-7.7); Basophil# 0.07 X10^3/uL; Basophil% 0.6 % (0-1); Eosinophil# 0.29 X10^3/uL; Eosinophils% 2.4 % (0-5); Hematocrit 48.9 % (40-54); Hemoglobin 16.6 g/dL (13.0-16.5); Lymphocyte # 4.02 X10^3/ul (0.83-4.51); Lymphocyte % 33.3 % (19-41); Mean Corp Hgb Conc 33.9 g/dL (32-36); Mean Corpuscular Hgb 29.7 pg (27.0-32.0); Mean Corpuscular Volume 87.6 fL (80-94); Mean Platelet Vol. 10.7 fl (6.2-12.0); Monocyte# 0.92 X10^3/uL; Monocyte% 7.6 % (0-10); NRBC Flagged by Analyzer 0 % (0-5); Neutrophil # 6.73 X10^3/uL (2.7-7.7); Neutrophil % 55.8 % (47-70); Platelet Count 189 K/mm3 (150-450); RBC Distribution Width CV 12.9 % (11.6-14.6); Red Blood Count 5.58 M/mm3 (4.6-6.2); White Blood Count 12.1 K/mm3 (4.4-11.0)
[2024-11-25 23:16] LABS: Anion Gap 7 (5-15); BUN 21 mg/dL (7-18); BUN/Creat Ratio 17.5 RATIO (10-20); Calcium,Total 8.6 mg/dL (8.5-10.1); Chloride 104 mmol/L (98-107); EST Glomerular Filtration Rate 65 mL/min (>60); Est Glom Filt Rate - Afr Amer 79 mL/min (>60); Estimated Creatinine Clearance 86.81 ml/min; Glucose 135 mg/dL (74-106); Magnesium 2.4 mg/dL (1.6-2.6); Potassium 3.5 mmol/L (3.5-5.1); Sodium Level 137 mmol/L (136-145)
[2024-11-25] MEDS: MethylPREDNISolone 125 MG/2 ML Vial IV (23:16)
--- NOTE | 2024-11-25 23:20 | RAD_ITS ---
INDICATION: cough EXAMINATION/TECHNIQUE: X-RAY - XR Chest 2 Views COMPARISON: 03/20/2021. FINDINGS: LINES/DEVICES: None. LUNGS: No consolidation or evidence of an effusion. No evidence of edema or a pneumothorax. MEDIASTINUM AND CARDIOVASCULAR STRUCTURES: Cardiac silhouette is normal in size and contour. Mediastinum is unremarkable. BONES AND SOFT TISSUES: No acute abnormality. RAD/Chest PA and Lateral IMPRESSION: No evidence of cardiopulmonary disease. Electronically Signed: Fausto Moseley DO at 0:38 EST ,
[2024-11-25 23:28] VITALS: BP 102/63; PULSE 91; RESP 22; TEMP 37; O2SAT 96
[2024-11-25] MEDS: Ipratropium/Albuterol Sulfate 3 ML AMPUL.NEB INHALATION (23:30)
[2024-11-25] MEDS: Albuterol 2.5 MG/3 ML VIAL.NEB. INHALATION (23:30)
[2024-11-25 23:31] VITALS: PULSE 91; RESP 14
[2024-11-25 23:33] LABS: BNP,B-Type NATRIURETIC PEPTIDE 353.3 pg/mL (0-100)
[2024-11-26] VITALS (22 sets, daily range): BP systolic 99–131; BP diastolic 74–101; PULSE 72–111; RESP 17–30; TEMP 36.4–36.9; O2SAT 91–97; BMI 36.6
--- NOTE | 2024-11-26 00:54 | HP.PCM.HOS_ITS ---
HPI - General General Date of Admission: 11/26/24 Date of Service: 11/26/24 Chief Complaint: Worsening shortness of breath HPI Narrative SUKI RAMOS, is a 64 M who presented to [facility] ED on 11/26/2024 with worsening shortness of breath. Patient reports feeling progressively more short of breath over the past 2 weeks. Over the past few days he has been severely short of breath with any exertion. Earlier today when he went from sitting in his chair to trying to walk across the room he cried out to his that he could not catch his breath and sat down again to rest. He then stayed in the recliner for the rest the day and when he tried to get up to go to the bedroom he again had severe shortness of breath, so EMS was called. He was placed on nonrebreather enroute with improvement in oxygen saturations and work of breathing. On arrival to the ED he was weaned down to 4 L nasal cannula and oxygen saturations remained in the mid 90s. He had borderline sinus tachycardia with low normal blood pressures and was afebrile. Labs notable for WBC count 12, otherwise unremarkable. BNP 353. Chest x-ray was unremarkable. CTA chest was obtained and showed extensive pulmonary emboli including saddle embolus with emboli extending to the bilateral lobar, segmental and subsegmental pulmonary arteries, however no evidence of right heart strain was seen. ED physician discussed with Dr. Millan who noted patient was okay for admission here. Hospitalist was then contacted for admission. I saw the patient at bedside in the ED, was present. Patient was sitting up comfortably in bed, breathing comfortably on 4 L nasal cannula and conversing normally. Patient reports history of lower extremity DVT but states he was never placed on anticoagulation due to bleeding concern for him with his [employer] job. He has had worsening right lower extremity swelling over the past few weeks. Also has chronic left foot wound and is being seen at the wound care center for this. Patient is a current smoker, smokes about 1 pack of cigarettes per day. Has not been smoking as much over the past several days. Has never been diagnosed with COPD and has never been on home oxygen. Denies any fevers or chills. No other acute concerns at this time. [facility] Medical History COVID Tinnitus Marijuana use Thrombosis Wears glasses Depression Alcohol use Arthritis Prostate disease Restless legs Migraine headache Smoker BiPAP (biphasic positive airway pressure) dependence Shortness of breath on exertion History of stress test Hypertension Hx of hypoglycemia Hx of migraines Hx of seasonal allergies Lipodermatosclerosis Venous stasis ulcer of ankle with fat layer exposed Chronic venous hypertension w/ulcer and inflammation involv left side Chronic venous insufficiency Seizures Home Medications ?Medication ?Instructions ?Recorded ?Last Taken ?Type blood pressure monitor #1 ea 12/12/22 Unknown Rx ibuprofen 800 mg tablet 800 mg PO BID PRN Pain 12/12/22 Unknown History tamsulosin 0.4 mg capsule (Flomax) 0.4 mg PO QHS #90 caps 05/07/24 Unknown Rx amlodipine 5 mg tablet See Rx Instructions .Route 05/27/24 Unknown Rx .COMPLEX #90 tabs escitalopram oxalate 10 mg tablet 10 mg PO DAILY #90 tabs 05/27/24 Unknown Rx (Lexapro) lisinopril 20 See Rx Instructions .Route 05/27/24 Unknown Rx mg-hydrochlorothiazide 12.5 mg .COMPLEX #90 tabs tablet Allergy/AdvReac Type Severity Reaction Status Date / Time Penicillins Allergy Unknown UNKNOWN Verified 11/25/24 22:30 Family History Father Angina at rest Anxiety Diabetes Myocardial infarction Heart disease Hypertension Hyperlipidemia Respiratory disease Cancer esophageal Mother Cancer lung Depression Hormone disorder Seizures Osteoporosis Brother Myocardial infarction Hyperlipidemia Surgical History History of incision and drainage H/O foot surgery History of hemorrhoidectomy Hx of hand surgery History of nasal surgery Social History household members: significant other housing: house current occupational status: employed current occupation: [employer] sexually active: Yes Smoking Status: Current every day smoker tobacco type: cigarettes Electronic Cigarette Use: not used quit status: considering quitting alcohol intake: current alcohol intake frequency: holidays/special occasions only substance use type: marijuana what type of physical activity do you participate in: walking and additional details: lifting frequency: 5-6 times per week seatbelt use: always do you feel safe at home: Yes ROS Constitutional Constitutional: Reports fatigue; Denies chills, fever(s) or weakness Eyes Eyes: Denies change in vision Cardiovascular Cardiovascular: Reports dyspnea on exertion and lightheadedness; Denies chest pain or edema Vital Signs Vital Signs Vital Signs: 11/25/24 22:26 11/25/24 22:31 11/25/24 23:28 Temperature 99 F 98.6 F Temperature Source Oral Oral Pulse Rate 97 91 Respiratory Rate 22 H 22 H Respiratory Effort Normal Non-Labored Respiratory Depth Normal Respiratory Pattern Tachypnea Blood Pressure 119/102 H 102/63 Blood Pressure Mean 107 76 Pulse Ox 99 96 Oxygen Delivery Method Non-Rebreather Nasal Cannula Nasal Cannula Oxygen Flow Rate (L/min) 10 4 4 11/25/24 23:31 11/26/24 00:00 11/26/24 00:51 Temperature 98.4 F 98.4 F Temperature Source Oral Pulse Rate 91 91 111 H Respiratory Rate 14 24 H 30 H Respiratory Effort Respiratory Depth Respiratory Pattern Normal Blood Pressure 114/74 102/79 Blood Pressure Mean 87 86 Pulse Ox 97 93 Oxygen Delivery Method Nasal Cannula Oxygen Flow Rate (L/min) 4 Weight Weight: 124 kg Body Mass Index (BMI) 37.0 Physical Exam Const alert, oriented x3 and no apparent distress Constitutional Narrative: Middle-age male, class II obesity, mildly fatigued appearing but otherwise sitting up comfortably in bed, conversing normally, in no acute distress. General Appearance: cooperative and comfortable HEENT normocephalic, head/scalp atraumatic, hearing grossly normal bilaterally, nasal mucous membranes and turbinates normal and moist oral mucous membranes Eyes PERRL, EOMs intact bilaterally and conjunctivae normal Neck full ROM Chest inspection of chest normal Resp normal respiratory effort and no use of accessory muscles Resp Narrative: Breathing comfortably on 4 L nasal cannula at rest. Mildly decreased breath sounds in bilateral lung bases but otherwise good air movement throughout with no wheezing or crackles noted. Cardio regular rate, regular rhythm, no murmurs and peripheral pulses 2+ throughout GI normal to inspection, nondistended, normoactive bowel sounds, soft to palpation, non-tender and non-distended Back/Spine normal ROM Extremity normal to inspection, full ROM and no pedal edema Skin no rashes or lesions noted Psych mental status grossly normal Results Lab / Micro Data 11/25/24 22:14 11/25/24 22:14 Labs: Laboratory Results - last 24 hr 11/25/24 22:14: WBC 12.1 H, RBC 5.58, Hgb 16.6 H, Hct 48.9, MCV 87.6, MCH 29.7, MCHC 33.9, RDW Std Deviation 41.0, RDW Coeff of Adrian 12.9, Plt Count 189, MPV 10.7, Immature Gran % (Auto) 0.300, Neut % (Auto) 55.8, Lymph % (Auto) 33.3, [place] % (Auto) 7.6, Eos % (Auto) 2.4, Baso % (Auto) 0.6, Absolute Neuts (auto) 6.7, Absolute Lymphs (auto) 4.02, Nucleated RBC % 0, Sodium 137, Potassium 3.5, Chloride 104, Carbon Dioxide 26.0, Anion Gap 7, BUN 21 H, Creatinine 1.20, Estim Creat Clear Calc 86.81, Est GFR (MDRD) Af Amer 79, Est GFR (MDRD) Non-Af 65, BUN/Creatinine Ratio 17.5, Glucose 135 H, Calcium 8.6, Magnesium 2.4, B- Natriuretic Peptide 353.3 H Micro: Microbiology 11/25/24 22:54 Mucosa - Nasopharyngeal SARS-CoV-2, Influenza & RSV (PCR) - Final Imaging Radiology Impression Chest X-Ray 11/25/24 23:20 IMPRESSION: No evidence of cardiopulmonary disease. Electronically Signed: Fausto Moseley DO at 0:38 EST Reading Location ID and State: [facility] / [place] Tel , Service support , Assessment & Plan Assessment/Plan (1) Acute saddle pulmonary embolism: (2) Hypoxia: PLAN: Plan Patient is a 64-year-old male who presented [facility] ED on 11/26/2024 with worsening shortness of breath. 1. Acute saddle PE with hypoxia ? Admit under inpatient status to PCU. Vascular surgery consulted. CTA chest on admit showed extensive bilateral PE but with no right heart strain. Patient satting in the mid 90s on 4 L nasal cannula at rest. Continue treatment with heparin drip for now. Will keep n.p.o. in case of need for procedure with vascular surgery. Echo ordered. Bilateral lower extremity duplex ultrasound ordered. Wean supplemental oxygen as able. Chronic medical conditions: ? Class II obesity: BMI 36 on admit. Complicates hospital course, care and prognosis. ? Chronic lower extremity venous stasis with known left foot wound: Follows with wound care center. Left foot and lower leg does not appear acutely infected at this time. Continue outpatient follow-up. ? Hypertension: Holding home amlodipine and lisinopril?hydrochlorothiazide for now. ? BPH with obstructive symptoms: Continue home Flomax. ? Depression: Continue home escitalopram. ? Tobacco use disorder: Discussed cessation. Denied need for nicotine replacement therapy while inpatient. DVT prophylaxis: Not indicated, on heparin drip CODE STATUS: Full code, verified Expected disposition: Home, TBD Total clinical time spent by myself addressing the patient's medical issues, reviewing all the data, and collaborating with patient's care team: 55 minutes. Charges/Coding Visit Charges Inpatient E&M: 15578 Init Hosp L2
--- NOTE | 2024-11-26 01:02 | EDS_ITS ---
HPI History of Present Illness Chief Complaint: Shortness of Breath Informant: patient and spouse/S.O. Narrative Narrative: Patient is a 64-year-old male with past medical history of hypertension chronic venous insufficiency and tobacco abuse. He reports he smokes roughly a pack a day but denies any true diagnosis of COPD or need for supplemental oxygen. He does state that he wears CPAP at night. He reports for the past few weeks he has been having congestion drainage and cough. However over the last 1 to 2 days he feels like his symptoms have worsened. Tonight he was having shortness of breath and felt lightheaded like he was going to pass out if he did any type of minimal exertion such as standing and walking. Therefore EMS was called. EMS reports patient's pulse ox on room air was in the mid 80s. [facility] Medical History COVID Tinnitus Marijuana use Thrombosis Wears glasses Depression Alcohol use Arthritis Prostate disease Restless legs Migraine headache Smoker BiPAP (biphasic positive airway pressure) dependence Shortness of breath on exertion History of stress test Hypertension Hx of hypoglycemia Hx of migraines Hx of seasonal allergies Lipodermatosclerosis Venous stasis ulcer of ankle with fat layer exposed Chronic venous hypertension w/ulcer and inflammation involv left side Chronic venous insufficiency Seizures Home Medications ?Medication ?Instructions ?Recorded ?Last Taken ?Type blood pressure monitor #1 ea 12/12/22 Unknown Rx ibuprofen 800 mg tablet 800 mg PO BID PRN Pain 12/12/22 Unknown History tamsulosin 0.4 mg capsule (Flomax) 0.4 mg PO QHS #90 caps 05/07/24 Unknown Rx amlodipine 5 mg tablet See Rx Instructions .Route 05/27/24 Unknown Rx .COMPLEX #90 tabs escitalopram oxalate 10 mg tablet 10 mg PO DAILY #90 tabs 05/27/24 Unknown Rx (Lexapro) lisinopril 20 See Rx Instructions .Route 05/27/24 Unknown Rx mg-hydrochlorothiazide 12.5 mg .COMPLEX #90 tabs tablet Allergy/AdvReac Type Severity Reaction Status Date / Time Penicillins Allergy Unknown UNKNOWN Verified 11/25/24 22:30 Family History Father Angina at rest Anxiety Diabetes Myocardial infarction Heart disease Hypertension Hyperlipidemia Respiratory disease Cancer esophageal Mother Cancer lung Depression Hormone disorder Seizures Osteoporosis Brother Myocardial infarction Hyperlipidemia Surgical History History of incision and drainage H/O foot surgery History of hemorrhoidectomy Hx of hand surgery History of nasal surgery Social History household members: significant other housing: house current occupational status: employed current occupation: [employer] sexually active: Yes Smoking Status: Current every day smoker tobacco type: cigarettes Electronic Cigarette Use: not used quit status: considering quitting alcohol intake: current alcohol intake frequency: holidays/special occasions only substance use type: marijuana what type of physical activity do you participate in: walking and additional details: lifting frequency: 5-6 times per week seatbelt use: always do you feel safe at home: Yes ROS ROS ED Constitutional Constitutional ED: Denies chills or fever(s) Eyes Eyes: Denies change in vision ENT ENT ED: Reports rhinorrhea and sore throat Cardiovascular Cardiovascular: Denies chest pain, palpitations or racing heartbeat Respiratory/Chest Respiratory/Chest: Reports cough and dyspnea Gastrointestinal Gastrointestinal: Denies abdominal pain, diarrhea, nausea or vomiting Genitourinary Genitourinary ED: Denies dysuria Musculoskeletal Musculoskeletal: Denies myalgias Integumentary Denies rash Neurologic Neurologic: Denies headache(s) Hematologic/Lymphatic Hematologic/Lymphatic: Denies easy bleeding or easy bruising Allergic/Immunologic Allergic/Immunologic ED: Denies mouth swelling or tongue swelling EXAM Physical Exam Const Vital Signs: 11/25/24 22:26 11/25/24 22:31 11/25/24 23:28 Temperature 99 F 98.6 F Temperature Source Oral Oral Pulse Rate 97 91 Respiratory Rate 22 H 22 H Respiratory Effort Normal Non-Labored Respiratory Depth Normal Respiratory Pattern Tachypnea Blood Pressure 119/102 H 102/63 Blood Pressure Mean 107 76 Pulse Ox 99 96 Oxygen Delivery Method Non-Rebreather Nasal Cannula Nasal Cannula Oxygen Flow Rate (L/min) 10 4 4 11/25/24 23:31 11/26/24 00:00 11/26/24 00:51 Temperature 98.4 F 98.4 F Temperature Source Oral Pulse Rate 91 91 111 H Respiratory Rate 14 24 H 30 H Respiratory Effort Respiratory Depth Respiratory Pattern Normal Blood Pressure 114/74 102/79 Blood Pressure Mean 87 86 Pulse Ox 97 93 Oxygen Delivery Method Nasal Cannula Oxygen Flow Rate (L/min) 4 Positive well nourished and well developed General Appearance ED: well developed HEENT HEENT Narrative: Nasal mucosa is hyperemic and boggy There is cobblestoning noted in the posterior pharynx without airway edema or compromise; no secondary findings to suggest infection. Eyes PERRL and EOMs intact bilaterally General Eye ED: Negative for pale conjunctiva or scleral icterus Neck supple and no JVD Chest Wall palpation of chest normal Resp Resp Narrative: Breath sounds are diminished throughout and there is tachypnea noted. There is expiratory wheeze and rhonchi noted in the bilateral lower lobe. Cardio regular rate and regular rhythm GI normal to inspection, nondistended, normoactive bowel sounds, non-tender, non- distended and no masses Auscultation: normoactive bowel sounds Palpation: soft Extremity Extremity Narrative: +1-2 pitting edema to the bilateral lower extremities that is equal and symmetric and chronic per patient Negative Homans' sign bilaterally Neuro oriented x3, CN's II-XII intact bilaterally and no sensory deficits noted Sensorium / Orientation: alert Motor Exam: strength 5/5 throughout Psych mental status grossly normal Skin Skin Narrative: Chronic stasis changes to the bilateral lower extremities consistent with history of chronic venous insufficiency MDM MDM MDM Narrative Medical decision making narrative: Patient arrived to the ER satting in the mid 90s on 4 to 6 L nasal cannula. He does not typically require oxygen. With concern for viral infection such as COVID influenza RSV versus pneumonia pneumothorax or congestive heart failure as a cause of his respiratory distress basic labs and a chest x-ray with viral swab were obtained. The patient's viral swab was negative and chest x-ray did not show any obvious pneumonia pneumothorax or pleural effusion. After receiving breathing treatments and steroids the patient's work of breathing did improve. He was taken off oxygen and ambulated and his pulse ox decreased to the low 80s and he felt lightheaded and dizzy and his heart rate increased to the 120s indicating he is not safe for discharge. After family arrived they did admit to a remote history of DVT in the right leg and states that it was never truly followed up on nor was he placed on anticoagulation. Therefore after the patient had been admitted with further discussion with the hospitalist it was decided he should get a CTA. CTA showed an extensive saddle PE without heart strain. The patient was started on heparin and the case was discussed with vascular surgeon Dr. Millan. He feels as there is no heart strain and the patient's vitals are stable he is safe for continued treatment in our facility and therefore will be admitted to the hospital for further care. History & Record Review Discussion w/independent historian: Patient and Significant other Lab Data Attestation: I reviewed the patient's lab results. Labs: Laboratory Results - last 24 hr 11/25/24 22:14 WBC 12.1 H RBC 5.58 Hgb 16.6 H Hct 48.9 MCV 87.6 MCH 29.7 MCHC 33.9 RDW Std Deviation 41.0 RDW Coeff of Adrian 12.9 Plt Count 189 MPV 10.7 Immature Gran % (Auto) 0.300 Neut % (Auto) 55.8 Lymph % (Auto) 33.3 [place] % (Auto) 7.6 Eos % (Auto) 2.4 Baso % (Auto) 0.6 Absolute Neuts (auto) 6.7 Absolute Lymphs (auto) 4.02 Nucleated RBC % 0 PT 14.1 INR 1.1 APTT 26.3 Sodium 137 Potassium 3.5 Chloride 104 Carbon Dioxide 26.0 Anion Gap 7 BUN 21 H Creatinine 1.20 Estim Creat Clear Calc 86.81 Est GFR (MDRD) Af Amer 79 Est GFR (MDRD) Non-Af 65 BUN/Creatinine Ratio 17.5 Glucose 135 H Calcium 8.6 Magnesium 2.4 B-Natriuretic Peptide 353.3 H Radiography Diagnostic Testing: Clinical Impression(s) from Imaging Studies Chest X-Ray 11/25/24 23:20 IMPRESSION: No evidence of cardiopulmonary disease. Electronically Signed: Fausto Moseley DO at 0:38 EST , Chest x-ray as interpreted by the emergency medicine physician reveals no acute infiltrate pneumothorax or pleural effusion Management Discussion w/another healthcare provider: Hospitalist and Slackline Operator Discharge Plan Dx/Rx/DC Orders Clinical Impression: Hypertension, Tobacco abuse disorder, Chronic venous insufficiency, Acute respiratory failure with hypoxemia, Acute saddle pulmonary embolism Disposition Disposition: [facility] Discharge Date/Time: 11/26/24 03:18
--- NOTE | 2024-11-26 01:18 | CT_ITS ---
We are attempting to reach an attending provider to discuss findings. An addendum with communication details will be sent when the communication is complete. INDICATION: eval for PE EXAMINATION: CT CHEST WITH CONTRAST - CT Chest W/ Contrast Injection TECHNIQUE: Helically acquired images were obtained of the chest with sagittal and coronal reconstructed images. Three-D reconstructed images were reviewed. Individualized dose optimization techniques were used for this CT. IV contrast dosage and agent: 100 mL of Isovue-370. COMPARISON: None. FINDINGS: LUNGS, PLEURA AND LARGE AIRWAYS: No consolidation or edema. No pulmonary nodule. No pleural effusion. No pneumothorax. THYROID: Unremarkable. HEART AND PERICARDIUM: Coronary artery calcifications are present. No pericardial effusion. MEDIASTINUM AND [place]: No mediastinal or hilar adenopathy. Esophagus is unremarkable. No hiatal hernia. VESSELS: Thoracic aorta is unremarkable. Extensive pulmonary emboli including a saddle embolus with emboli extending to the bilateral lobar, segmental and subsegmental pulmonary arteries. UPPER ABDOMEN: The visualized upper abdomen is unremarkable. BONES: No acute abnormality. CT/CTA Chest W/WO Contrast IMPRESSION: Extensive pulmonary emboli including a saddle embolus with emboli extending to the bilateral lobar, segmental and subsegmental pulmonary arteries. No evidence of right heart strain but the artery to L3 ratio just under 1. Electronically Signed: Fausto Moseley DO at 1:57 EST ,
[2024-11-26 01:58] LABS: International Normalized Ratio 1.1; Prothrombin Time (Protime)PT. 14.1 SECONDS (11.7-14.9)
[2024-11-26 01:59] LABS: Partial Thromboplast Time 26.3 Seconds (24.1-36.2)
[2024-11-26] MEDS: Heparin Injection (Vial) 5,000 UNIT/ML VIAL 4000 UNIT IV (02:33)
[2024-11-26] MEDS: HEPARIN/D5w 25,000 UNITS 25,000 UNITS/250 ML IV.SOLN. 10 UNITS CONT INF (02:38)
[2024-11-26 03:53] LABS: Lactic Acid 1.4 mmol/L (0.4-1.9)
[2024-11-26 03:57] LABS: Troponin-I HS 473 pg/mL (3.0-78.0)
[2024-11-26 03:59] LABS: Procalcitonin 0.04 ng/mL (0.00-0.09)
--- NOTE | 2024-11-26 04:23 | VDLE_ITS ---
Reason For Study: PE RIGHT LEFT GSV and ASV are dilated and NONCOMPRESSIBLE GSV is normal. throughout portions of right thigh. CFV is compressible, spontaneous, phasic, Varicosity is dilated and NONCOMPRESSIBLE in competent, and demonstrates normal the right thigh. augmentation. CFV is patent and compressible. FV is compressible, spontaneous, phasic, FV is dilated and NONCOMPRESSIBLE with mixed competent and demonstrates normal intraluminal echoes. Finding consistent with augmentation. Acute on Chronic DVT. POP V is compressible, spontaneous, phasic, POP V is PARTIALLY COMPRESSIBLE with competent and demonstrates normal pulsatile flow noted and intraluminal echoes. augmentation. Acute deep vein thrombosis is noted in the T/P Trunk is compressible. Gastrocnemius V. It is dilated and PTV is compressible. NONCOMPRESSIBLE. LT PerV is compressible. T/P Trunk is compressible. PTV is compressible. RT PerV is compressible. Procedure This is a venous duplex using B-mode, color flow and spectral Doppler. Exam performed in department. The exam was diagnostic. A preliminary report was called and/or faxed to Dr. Millan. VL/Venous Duplex US - [place] Extrem Interpretation Summary Acute on chronic deep vein thrombosis is noted in the right femoral vein. Acute deep vein thrombosis noted in the right gastrocnemius vein. Chronic deep vein thrombosis noted in the right popliteal vein. Acute superficial vein thrombosis noted in the right great saphenous vein and a ccessory saphenous vein in the thigh and associated varicosities. Deep veins of the left lower extremity are patent and compressible segmentally. There is no evidence of left lower extremity deep vein thrombosis. The left great saphenous vein cody ears patent and compressible segmentally Ordering Physician: Nestor Chaidez Referring Physician: Kelsey Jacobs Performed By: Domenic Suggs, RVT
--- NOTE | 2024-11-26 04:23 | ECHOCS_ITS ---
Reason For Study: Saddle PE Procedure This was a 2D Doppler, Color Flow transthoracic echocardiogram. The study was technically difficult. Exam performed portable in patient room. Left Ventricle Normal LV size. D shaped septum in systole and diastole. Left ventricular systolic function is normal. The left ventricular ejection fraction is 60 %. No regional wall motion abnormalities noted. Right Ventricle Moderately dilated right ventricle. Moderate global right ventricular systolic dysfunction. Atria Normal left atrium. Normal right atrium. Mitral Valve Normal mitral valve. Tricuspid Valve Normal tricuspid valve. Mild (1+) tricuspid valve insufficiency. Pulmonary artery systolic pressure is 16 mmHg. Aortic Valve Trisinus/trileaflet aortic valve. Pulmonic Valve Normal pulmonic valve. Great Vessels Mild to moderately dilated aortic root. The pulmonary artery is normal size. Inferior vena cava collapse with respiration. Pericardium/Pleural No pericardial effusion. Medication Diluted definity 3.0ml given slow IV push to enhance endocardial definition. MMode/2D Measurements & Calculations LVIDd: 4.3 cm IVSd: 1.2 cm Ao root diam: 4.3 cm LVIDs: 2.8 cm LVPWd: 1.2 cm RVDd: 4.7 cm FS: 35.9 % asc Aorta Diam: 4.2 cm LAV(MOD-bp): 51.2 ml LA A4 area: 19.6 cm2 LAV(MOD-bp) Indexed: 21.1 ml/m2 LAV(MOD-sp2): 29.1 ml LAV(MOD-sp4): 56.3 ml LA dimension(2D): 3.6 cm RA A4 area: 21.9 cm2 Time Measurements MV dec time: 0.34 sec Doppler Measurements & Calculations MV E max charanjit: 39.7 cm/sec Lat Peak E' Charanjit: 7.3 cm/sec Med Peak E' Charanjit: 5.0 cm/sec MV A max charanjit: 75.6 cm/sec E/E' lat: 5.5 E/E' med: 8.0 MV E/A: 0.53 MV dec slope: 121.7 cm/sec2 Ao V2 max: 95.1 cm/sec LV V1 max: 76.7 cm/sec Ao max P.6 mmHg LV V1 max P.4 mmHg PA V2 max: 40.2 cm/sec TR max charanjit: 165.4 cm/sec TR max P.9 mmHg ECHO/Echo Complete W/ Contrast Interpretation Summary Normal LV size. Left ventricular systolic function is normal. The left ventricular ejection fraction is 60 %. Moderately dilated right ventricle. Moderate global right ventricular systolic dysfunction. D shaped septum in systole and diastole. Ordering Physician: Nestor Chaidez Referring Physician: Kelsey Jacobs Performed By: Jarrod Vera RCS
--- NOTE | 2024-11-26 08:13 | EX.PCM.CON.S ---
Assessment & Plan Assessment/Plan (1) Acute saddle pulmonary embolism: PLAN: Plan With significant clot burden and evidence of right heart strain, patient is a candidate for thrombectomy. He is hemodynamically stable, requiring 4 lpm O2; feel he is appropriate for intervention here. Will also have pulmonary evaluate for their recommendations as well. Discussed procedure risks, benefits, alternatives, and recovery with the patient and his partner and he does wish to proceed with the procedure. HPI Consult Data Date of Consult: 11/26/24 HPI Narrative HPI Narrative: SUKI RAMOS, is a 64 M who presented to the [facility] ER overnight with acutely worsened SOB and presyncope. He had CTA Chest which showed saddle pulmonary embolus and suggested R heart strain and he was admitted on a heparin drip. Initial troponin was 473, BNP 353, lactic acid 1.4. Echo and lower extremity venous duplex are pending. He reports that over the last few weeks he has had congestion/upper respiratory symptoms, mild SOB, and overall not feeling well with fatigue and significantly diminished activity. He had taken the last several days off work and had been spending most of his time at home in bed or in the recliner sleeping. Yesterday morning he noted worsened shortness of breath with activity, then in the evening it worsened further to the point where he felt he would pass out when he stood up leading them to call EMS. He has not had any chest pain. He is feeling less SOB at rest this morning compared to last night, but still with some SOB resting and significant SOB with exertion. He has been recently sedentary as above, but otherwise no notable injury, surgery, or travel. He denies any history of malignancy. He does smoke about 1 ppd. He does have a history of venous insufficiency with associated venous ulcerations and SVT, but no prior history of DVT or PE. He generally has significant bilateral lower extremity edema and pain which fluctuates, not certain that either leg feels worse than usual. [facility] Medical History COVID Tinnitus Marijuana use Thrombosis Wears glasses Depression Alcohol use Arthritis Prostate disease Restless legs Migraine headache Smoker BiPAP (biphasic positive airway pressure) dependence Shortness of breath on exertion History of stress test Hypertension Hx of hypoglycemia Hx of migraines Hx of seasonal allergies Lipodermatosclerosis Venous stasis ulcer of ankle with fat layer exposed Chronic venous hypertension w/ulcer and inflammation involv left side Chronic venous insufficiency Seizures Home Medications ?Medication ?Instructions ?Recorded ?Last Taken ?Type blood pressure monitor #1 ea 12/12/22 Unknown Rx ibuprofen 800 mg tablet 800 mg PO BID PRN Pain 12/12/22 Unknown History tamsulosin 0.4 mg capsule (Flomax) 0.4 mg PO QHS #90 caps 05/07/24 Unknown Rx amlodipine 5 mg tablet See Rx Instructions .Route 05/27/24 Unknown Rx .COMPLEX #90 tabs escitalopram oxalate 10 mg tablet 10 mg PO DAILY #90 tabs 05/27/24 Unknown Rx (Lexapro) lisinopril 20 See Rx Instructions .Route 05/27/24 Unknown Rx mg-hydrochlorothiazide 12.5 mg .COMPLEX #90 tabs tablet Allergy/AdvReac Type Severity Reaction Status Date / Time Penicillins Allergy Unknown UNKNOWN Verified 11/25/24 22:30 Family History Father Angina at rest Anxiety Diabetes Myocardial infarction Heart disease Hypertension Hyperlipidemia Respiratory disease Cancer esophageal Mother Cancer lung Depression Hormone disorder Seizures Osteoporosis Brother Myocardial infarction Hyperlipidemia Surgical History History of incision and drainage H/O foot surgery History of hemorrhoidectomy Hx of hand surgery History of nasal surgery Social History household members: significant other housing: house current occupational status: employed current occupation: [email or web address] sexually active: Yes Smoking Status: Current every day smoker tobacco type: cigarettes Electronic Cigarette Use: not used quit status: considering quitting alcohol intake: current alcohol intake frequency: holidays/special occasions only substance use type: marijuana what type of physical activity do you participate in: walking and additional details: lifting frequency: 5-6 times per week seatbelt use: always do you feel safe at home: Yes Physical Exam Const alert and oriented x3 General Appearance: cooperative HEENT normocephalic, head/scalp atraumatic, hearing grossly normal bilaterally, external ears normal and external nose normal Eyes General Eye: normal appearance of both eyes Neck General: normal visual inspection and trachea midline Resp normal respiratory effort Effort and Inspection: Negative for retractions or uses accessory muscles Cardio regular rate and regular rhythm Extremity General Extremity: edema bilateral Skin Wounds: wounds noted other lower extremity venous ulceration Neuro moves all extremities and no focal motor deficits Speech: speech normal Psych mental status grossly normal, cooperative, affect normal, speech normal and activity/motor behavior normal Attitude: calm and engaged Lab / Micro Data 11/26/24 08:55 11/26/24 08:55 Labs: Laboratory Results - last 24 hr 11/25/24 22:14: WBC 12.1 H, RBC 5.58, Hgb 16.6 H, Hct 48.9, MCV 87.6, MCH 29.7, MCHC 33.9, RDW Std Deviation 41.0, RDW Coeff of Adrian 12.9, Plt Count 189, MPV 10.7, Immature Gran % (Auto) 0.300, Neut % (Auto) 55.8, Lymph % (Auto) 33.3, [place] % (Auto) 7.6, Eos % (Auto) 2.4, Baso % (Auto) 0.6, Absolute Neuts (auto) 6.7, Absolute Lymphs (auto) 4.02, Nucleated RBC % 0, PT 14.1, INR 1.1, APTT 26.3, Sodium 137, Potassium 3.5, Chloride 104, Carbon Dioxide 26.0, Anion Gap 7, BUN 21 H, Creatinine 1.20, Estim Creat Clear Calc 86.81, Est GFR (MDRD) Af Amer 79, Est GFR (MDRD) Non-Af 65, BUN/Creatinine Ratio 17.5, Glucose 135 H, Calcium 8.6, Magnesium 2.4, B-Natriuretic Peptide 353.3 H 11/26/24 02:37: Procalcitonin 0.04 11/26/24 03:09: Lactic Acid 1.4, Troponin I High Sens 473 H* Micro: Microbiology 11/25/24 22:54 Mucosa - Nasopharyngeal SARS-CoV-2, Influenza & RSV (PCR) - Final Imaging Radiology Impression Chest X-Ray 11/25/24 23:20 IMPRESSION: No evidence of cardiopulmonary disease. Electronically Signed: Fausto Moseley DO at 0:38 EST , Chest CTA 11/26/24 01:18 IMPRESSION: Extensive pulmonary emboli including a saddle embolus with emboli extending to the bilateral lobar, segmental and subsegmental pulmonary arteries. No evidence of right heart strain but the artery to L3 ratio just under 1. Electronically Signed: Fausto Moseley DO at 1:57 EST , ADDENDUM: 11/26/24 0209 IMPRESSION: Extensive pulmonary emboli including a saddle embolus with emboli extending to the bilateral lobar, segmental and subsegmental pulmonary arteries. No evidence of right heart strain but the artery to L3 ratio just under 1. N.B. : The above Results were Read Back by Fausto Moseley DO to Linda Swan RN, and understanding confirmed on 11/26/2024 02:02:17 (ET). Electronically Signed: Fausto Moseley DO at 1:57 EST , ADDENDUM: 11/26/24 0210 IMPRESSION: undefined Charges/Coding Visit Charges Inpatient E&M: 55412 Init Hosp L2
[2024-11-26 09:06] LABS: Hemoglobin 16.2 g/dL (13.0-16.5); Mean Corp Hgb Conc 33.8 g/dL (32-36); Mean Corpuscular Hgb 29.6 pg (27.0-32.0); Mean Corpuscular Volume 87.6 fL (80-94); Mean Platelet Vol. 10.4 fl (6.2-12.0); Platelet Count 166 K/mm3 (150-450); RBC Distribution Width CV 12.7 % (11.6-14.6); RBC Distribution Width SD 41.1 fl (35.1-43.9); Red Blood Count 5.48 M/mm3 (4.6-6.2); White Blood Count 8.3 K/mm3 (4.4-11.0)
[2024-11-26 09:22] LABS: Anion Gap 8 (5-15); BUN 24 mg/dL (7-18); BUN/Creat Ratio 20.9 RATIO (10-20); Calcium,Total 8.5 mg/dL (8.5-10.1); Chloride 108 mmol/L (98-107); Creatinine, Serum 1.15 mg/dL (0.70-1.30); EST Glomerular Filtration Rate 68 mL/min (>60); Est Glom Filt Rate - Afr Amer 83 mL/min (>60); Estimated Creatinine Clearance 90.02 ml/min; Glucose 168 mg/dL (74-106); Potassium 4.6 mmol/L (3.5-5.1); Sodium Level 140 mmol/L (136-145)
[2024-11-26 09:33] LABS: Partial Thromboplast Time 29.7 Seconds (24.1-36.2)
[2024-11-26] MEDS: Heparin Injection (Vial) 5,000 UNIT/ML VIAL IV (10:08)
--- NOTE | 2024-11-26 10:25 | EX.PCM.CONCC ---
Assessment & Plan Assessment/Plan (1) Acute saddle pulmonary embolism: PLAN: Plan RECOMMENDATIONS: 1. Supplemental oxygen to maintain saturations at or above 90%. 2. Proceed with thrombectomy as scheduled. 3. Continue weight-based heparin infusion. 4. Encourage incentive spirometer use and mobilize patient as tolerated. 5. Outpatient pulmonary follow-up after discharge is warranted. IMPRESSIONS: 1. Bilateral pulmonary emboli with hypoxemia CTA demonstrated saddle pulmonary emboli with right greater than left involvement. The patient has evidence of RV strain along with RV dysfunction noted on echocardiogram. He is symptomatic and hypoxemic. Therefore, vascular surgery was consulted to evaluate the patient for thrombectomy, which is certainly reasonable at this point. Following this, the patient can be transition from a weight-based heparin infusion to either Eliquis or Xarelto. He will require outpatient follow-up after discharge. Continue to wean supplemental oxygen, in the interim, to maintain saturations at or above 90%. 2. History of chronic tobacco dependency/obstructive sleep apnea/hypertension/BPH/peripheral vascular disease Complicates care, management, recovery and prognosis. Smoking cessation counseling was provided. I would recommend that baseline PFTs to be completed after the patient is discharged from the hospital. This note was generated with [employer] dictation software. It may contain incorrect words, spelling, and punctuation that were not noted in checking the note before signing. HPI Consult Data Date of Consult: 11/26/24 HPI Narrative Reason for Consultation: Pulmonary emboli HPI Narrative: The patient is a 64-year-old male, with a history as outlined below, who presented to the emergency department on November 26 with complaints of shortness of breath. The patient reported that he was diagnosed with a superficial venous thrombosis previously, but never required any form of systemic anticoagulation. 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 The patient is a current everyday smoker, but is never been formally diagnosed with COPD, nor has he ever establish care with a call center analyst. He does have a documented history of sleep apnea with a split-night sleep study had been completed in November 2022, which demonstrated an overall AHI of 11.5 events per hour. On presentation to the emergency department, the patient was documented to be afebrile hemodynamically stable. The patient was hypoxemic, requiring 4 L/min of supplemental oxygen. Laboratory evaluation revealed a white blood cell count of 12,000. BNP was elevated at 353 with a troponin of 473. CTA chest demonstrated saddle pulmonary embolism with right greater than left proximal involvement. There was evidence of right heart strain, which was confirmed on echocardiogram. Surface echocardiogram demonstrated a moderately dilated RV with moderate global RV systolic dysfunction, D-shaped septum and normal pulmonary artery systolic pressures. [facility] Medical History COVID Tinnitus Marijuana use Thrombosis Wears glasses Depression Alcohol use Arthritis Prostate disease Restless legs Migraine headache Smoker BiPAP (biphasic positive airway pressure) dependence Shortness of breath on exertion History of stress test Hypertension Hx of hypoglycemia Hx of migraines Hx of seasonal allergies Lipodermatosclerosis Venous stasis ulcer of ankle with fat layer exposed Chronic venous hypertension w/ulcer and inflammation involv left side Chronic venous insufficiency Seizures Home Medications ?Medication ?Instructions ?Recorded ?Last Taken ?Type blood pressure monitor #1 ea 12/12/22 Unknown Rx ibuprofen 800 mg tablet 800 mg PO BID PRN Pain 12/12/22 Unknown History tamsulosin 0.4 mg capsule (Flomax) 0.4 mg PO QHS #90 caps 05/07/24 Unknown Rx amlodipine 5 mg tablet See Rx Instructions .Route 05/27/24 Unknown Rx .COMPLEX #90 tabs escitalopram oxalate 10 mg tablet 10 mg PO DAILY #90 tabs 05/27/24 Unknown Rx (Lexapro) lisinopril 20 See Rx Instructions .Route 05/27/24 Unknown Rx mg-hydrochlorothiazide 12.5 mg .COMPLEX #90 tabs tablet Allergy/AdvReac Type Severity Reaction Status Date / Time Penicillins Allergy Unknown UNKNOWN Verified 11/25/24 22:30 Family History Father Angina at rest Anxiety Diabetes Myocardial infarction Heart disease Hypertension Hyperlipidemia Respiratory disease Cancer esophageal Mother Cancer lung Depression Hormone disorder Seizures Osteoporosis Brother Myocardial infarction Hyperlipidemia Surgical History History of incision and drainage H/O foot surgery History of hemorrhoidectomy Hx of hand surgery History of nasal surgery Social History household members: significant other housing: house current occupational status: employed current occupation: [employer] sexually active: Yes Smoking Status: Current every day smoker tobacco type: cigarettes Electronic Cigarette Use: not used quit status: considering quitting alcohol intake: current alcohol intake frequency: holidays/special occasions only substance use type: marijuana what type of physical activity do you participate in: walking and additional details: lifting frequency: 5-6 times per week seatbelt use: always do you feel safe at home: Yes ROS ROS Narrative 10 systems were reviewed with pertinent positives as noted in the HPI above. Physical Exam Const alert and no apparent distress Constitutional Narrative: Obese. Family is present at the bedside. General Appearance: cooperative HEENT normocephalic, head/scalp atraumatic and moist oral mucous membranes Eyes PERRL, EOMs intact bilaterally and conjunctivae normal Neck supple General: trachea midline Chest inspection of chest normal Resp normal respiratory effort Auscultation: diminished lung sounds; Negative for rales, rhonchi or wheezes Cardio regular rate and regular rhythm GI normal to inspection, nondistended, normoactive bowel sounds Extremity General Extremity: edema; Negative for clubbing Skin General Skin Exam: venous stasis and dermatitis Neuro CN's II-XII intact bilaterally, moves all extremities and no focal motor deficits Psych cooperative and affect normal Lab / Micro Data 11/26/24 08:55 11/26/24 08:55 Labs: Laboratory Results - last 24 hr 11/25/24 22:14: WBC 12.1 H, RBC 5.58, Hgb 16.6 H, Hct 48.9, MCV 87.6, MCH 29.7, MCHC 33.9, RDW Std Deviation 41.0, RDW Coeff of Adrian 12.9, Plt Count 189, MPV 10.7, Immature Gran % (Auto) 0.300, Neut % (Auto) 55.8, Lymph % (Auto) 33.3, Lea % (Auto) 7.6, Eos % (Auto) 2.4, Baso % (Auto) 0.6, Absolute Neuts (auto) 6.7, Absolute Lymphs (auto) 4.02, Nucleated RBC % 0, PT 14.1, INR 1.1, APTT 26.3, Sodium 137, Potassium 3.5, Chloride 104, Carbon Dioxide 26.0, Anion Gap 7, BUN 21 H, Creatinine 1.20, Estim Creat Clear Calc 86.81, Est GFR (MDRD) Af Amer 79, Est GFR (MDRD) Non-Af 65, BUN/Creatinine Ratio 17.5, Glucose 135 H, Calcium 8.6, Magnesium 2.4, B-Natriuretic Peptide 353.3 H 11/26/24 02:37: Procalcitonin 0.04 11/26/24 03:09: Lactic Acid 1.4, Troponin I High Sens 473 H* 11/26/24 08:55: WBC 8.3, RBC 5.48, Hgb 16.2, Hct 48.0, MCV 87.6, MCH 29.6, MCHC 33.8, RDW Std Deviation 41.1, RDW Coeff of Adrian 12.7, Plt Count 166, MPV 10.4, APTT 29.7, Sodium 140, Potassium 4.6, Chloride 108 H, Carbon Dioxide 24.0, Anion Gap 8, BUN 24 H, Creatinine 1.15, Estim Creat Clear Calc 90.02, Est GFR (MDRD) Af Amer 83, Est GFR (MDRD) Non-Af 68, BUN/Creatinine Ratio 20.9 H, Glucose 168 H, Calcium 8.5 Micro: Microbiology 11/25/24 22:54 Mucosa - Nasopharyngeal SARS-CoV-2, Influenza & RSV (PCR) - Final Imaging Radiology Impression Chest X-Ray 11/25/24 23:20 IMPRESSION: No evidence of cardiopulmonary disease. Electronically Signed: Fausto Moseley DO at 0:38 EST , Chest CTA 11/26/24 01:18 IMPRESSION: Extensive pulmonary emboli including a saddle embolus with emboli extending to the bilateral lobar, segmental and subsegmental pulmonary arteries. No evidence of right heart strain but the artery to L3 ratio just under 1. Electronically Signed: Fausto Moseley DO at 1:57 EST , ADDENDUM: 11/26/24 0209 IMPRESSION: Extensive pulmonary emboli including a saddle embolus with emboli extending to the bilateral lobar, segmental and subsegmental pulmonary arteries. No evidence of right heart strain but the artery to L3 ratio just under 1. N.B. : The above Results were Read Back by Fausto Moseley DO to Linda Swan RN, and understanding confirmed on 11/26/2024 02:02:17 (ET). Electronically Signed: Fausto Moseley DO at 1:57 EST , ADDENDUM: 11/26/24 0210 IMPRESSION: undefined Charges/Coding Visit Charges Inpatient E&M: 61529 Init Hosp L3
--- NOTE | 2024-11-26 11:00 | CASEMGMT ---
RN CM Face to Face with patient for initial transition planning/care coordination assessment. RN CM introduced self and role at [facility]. Patient lying in bed, alert and oriented. Patient willing to participate in assessment and is able to answer all questions appropriately. Care providers, pharmacy, and demographics verified. Strata: 1 PCP: Reynaldo Specialists: none Preferred Pharmacy: [facility] Insurance: [place] Prescription Benefit: yes Living Will/HPOA: none, interested in completing, SW notified LNOK: significant other, daughter Living Arrangements: Patient lives with significant other in a mobile home with 4 steps and railing to enter the home. Patient states he is independent at home. Transportation: self, family DME/HHC: Patient has cane and cpap at home. No previous HHC or SNF. Will monitor for home oxygen, prefers [employer] Patient wishes to discharge home, denies need for home health at this time. Patient states he has no further needs or concerns at this time. CM to follow for discharge planning needs that may arise. Disposition Plan: Patient to discharge home with family support and follow-up plans in place. Princess FARNSWORTH, RN, CM
[2024-11-26 16:43] LABS: Partial Thromboplast Time 175.5 Seconds (24.1-36.2)
--- NOTE | 2024-11-26 16:51 | OP.PCM_ITS ---
Operative Report (Standard) Operative Information Date of Procedure: 11/26/24 Pre-Operative Diagnosis: Submassive pulmonary embolism, saddle Post-Operative Diagnosis: Same Surgery/Procedure Performed: Percutaneous mechanical thrombectomy of the bilateral pulmonary arteries Selective pulmonary angiogram candy mixer: No Type of Anesthesia: Local and Sedation,Conscious Procedure Start Time: 13:20 Procedure Stop Time: 15:30 Select all DRAINS/GRAFTS/IMPLANTS that apply: None Estimated Blood Loss: 75 Specimen collected: No Description of surgery: HPI: Patient is a 64-year-old male who presented with subacute shortness of breath with acute worsening over the prior 48 hours. He had a CT angiography in the emergency department which revealed saddle embolus with evidence of right heart strain and he had positive biomarkers and significant oxygen requirement. Clinical and radiographic findings placed him as a submassive pulmonary embolism. He is taken now for urgent pulmonary thrombectomy. Description of procedure: Upon obtaining form consent and verification correct patient procedure site the patient was taken to the [facility] Worker he was positioned prepped and draped in usual sterile fashion. Timeouts performed conscious sedation ministered Versed and fentanyl. Skin overlying the right common femoral vein was then anesthetized with 1% lidocaine the vessel accessed the micropuncture needle wire under ultrasound guidance. This then exchanged for micropuncture sheath through which hand-injection ilio caval venogram was performed revealing satisfactory positioning with no extravasation or dissection. This also revealed no thrombus or obstruction of the right iliac vein system. Through the micropuncture sheath a J-wire was advanced and the micropuncture sheath exchanged for an 8 Northern Irish sheath. Through the 8 Northern Irish sheath an angled pigtail catheter and a Leonid wire were advanced navigating the inferior vena cava into the right atrium and ultimately the right ventricle. With some redirection we are able to navigate into the ventricular outflow tract and ultimately into the main pulmonary artery. Digital subtraction right pulmonary angiogram was performed which revealed significant thrombus in the distal vessel with poor filling of the segmental branches. Using multiple configuration catheters and combinations with wires we ultimately were able to selectively cannulate the right pulmonary artery and advanced into the more distal segmental branches. Once the catheter was advanced the Leonid wire was then exchanged for a short tipped Amplatz wire. The catheter and 8 Northern Irish sheath then exchanged for the T24 Inari thrombectomy sheath advanced into the vena cava under fluoroscopic guidance. The patient was then heparinized allowed to circulate for 3 minutes with subsequent heparin redosing every 30 minutes. Through the sheath we then advanced the T24 catheter positioning it in the distal right pulmonary artery. Multiple aspirations were performed with significant thrombus return. The catheter was then repositioned more proximally and further aspiration was performed with additional thrombus obtained. Subtraction pulmonary angiogram was then performed selectively of the right pulmonary artery which revealed resolution of nearly all of the thrombus with only minimal remaining in some of the superior branches. It was felt that no further intervention was required on the right so we then redirected our sheath and catheter into the proximal left pulmonary artery. Subtraction pulmonary angiogram revealed the inferior segmental branches were totally occluded with some reconstitution distally and at the superior aspect and the portion that was the extension of the saddle embolus had resolved. These inferior branches on the CT appear to be separate thrombus segment. Using the T16 curve catheter we then advanced into the proximal segment of the occluded branch and performed multiple aspirations. Again significant thrombus was returned and the catheter was then repositioned for further aspirations. Once no further thrombus was returned a completion left pulmonary artery angiogram was performed revealed satisfactory resolution of any remaining thrombus on the left side. See no need for any further intervention wires and catheter then withdrawn. A silk suture was then placed at the access site and the sheath withdrawn with manual pressure was over 10 minutes until hemostasis was obtained. The patient was then taken to the PCU for bedrest and recovery. Surgical Findings: See above Complications Complications: No
[2024-11-26] MEDS: Escitalopram Oxalate 10 MG Tablet PO (18:03)
--- NOTE | 2024-11-26 19:43 | PCM.HOSP.N ---
Hospitalist Note Patient was seen and examined today, he does not appear to be in respiratory distress at rest. I talked with pulmonary medicine and vascular surgery about his care today and it was felt that he would benefit from a thrombectomy and so the patient underwent a thrombectomy today without any complications. Patient will be reevaluated tomorrow for possible discharge home, he will be placed tomorrow on Eliquis, at this time he remains on IV heparin.
[2024-11-26] MEDS: Tamsulosin HCl 0.4 MG Capsule PO (22:46)
[2024-11-27] VITALS (7 sets, daily range): BP systolic 101–132; BP diastolic 79–100; PULSE 70–83; RESP 16–18; TEMP 36.5–37; O2SAT 82–95
[2024-11-27 00:40] LABS: Partial Thromboplast Time 31.2 Seconds (24.1-36.2)
[2024-11-27] MEDS: HEPARIN/D5w 25,000 UNITS 25,000 UNITS/250 ML IV.SOLN. 14 UNITS CONT INF (05:36)
[2024-11-27] MEDS: Escitalopram Oxalate 10 MG Tablet PO (08:52)
[2024-11-27 10:08] LABS: Partial Thromboplast Time 33.7 Seconds (24.1-36.2)
[2024-11-27] MEDS: Heparin Injection (Vial) 5,000 UNIT/ML VIAL IV (10:18)
--- NOTE | 2024-11-27 11:24 | PN.CC_ITS ---
Assessment & Plan Assessment/Plan (1) Acute saddle pulmonary embolism: PLAN: Plan RECOMMENDATIONS: 1. Supplemental oxygen to maintain saturations at or above 90%. 2. Okay to transition from weight-based heparin infusion to Xarelto or Eliquis. 3. Encourage incentive spirometer use and mobilize patient as tolerated. 4. Perform walking oximetry study prior to consideration for discharge home. 5. Will sign off from a pulmonary perspective. Please call with any additional questions. IMPRESSIONS: 1. Bilateral pulmonary emboli with hypoxemia CTA demonstrated saddle pulmonary emboli with right greater than left vessel involvement. The patient has evidence of RV strain along with RV dysfunction noted on echocardiogram. He is symptomatic and hypoxemic. Therefore, the patient was taken for thrombectomy under the discretion of vascular surgery. At this time, the patient can be transition from a weight-based heparin infusion to either Eliquis or Xarelto. Continue supplemental oxygen to maintain saturations at or above 90%. Encourage incentive spirometer use and mobilize patient as tolerated. 2. History of chronic tobacco dependency/obstructive sleep apnea/hypertension/BPH/peripheral vascular disease Complicates care, management, recovery and prognosis. Smoking cessation counseling was provided. I would recommend that baseline PFTs to be completed after the patient is discharged from the hospital. This note was generated with [employer] dictation software. It may contain incorrect words, spelling, and punctuation that were not noted in checking the note before signing. Subjective Subjective The patient was seen and examined at the bedside this morning. Events from the last 24 hours have been reviewed. The patient is currently afebrile, hemodynamically stable and maintaining appropriate oxygen saturations on 2 L/min via nasal cannula. The patient underwent successful thrombectomy yesterday. He remains on a weight-based heparin infusion. Objective Data Objective Data The patient's most recent lab work, culture data and imaging studies have all been personally reviewed. Vital Signs: Vital Signs Temp Pulse Resp BP Pulse Ox O2 Del Method O2 Flow Rate 97.7 F L 76 16 120/94 H 95 Nasal Cannula 2 11/27/24 08:05 11/27/24 08:05 11/27/24 08:05 11/27/24 08:05 11/27/24 08:26 11/27/24 08:46 11/27/24 08:46 Oxygen Flow Rate (L/min) 2 Oxygen Delivery Method Nasal Cannula Weight: 270 lb 1.06 oz Body Mass Index (BMI) 36.6 Intake & Output: Intake and Output for Last 24 Hours 11/25/24 11/26/24 11/27/24 23:59 23:59 23:59 Intake Total 0 / 0 103.4 / 103.4 211.76 / 211.76 Output Total 0 / 0 350 / 350 Balance 0 / 0 103.4 / 103.4 -138.24 / -138.24 Lab / Micro Data Attestation: I reviewed the patient's lab results. 11/26/24 08:55 11/26/24 08:55 Labs: Laboratory Results - last 24 hr 11/26/24 16:00: APTT 175.5 H* 11/27/24 00:10: APTT 31.2 11/27/24 08:20: APTT 33.7 Micro: Microbiology 11/25/24 22:54 Mucosa - Nasopharyngeal SARS-CoV-2, Influenza & RSV (PCR) - Final Radiography Diagnostic Testing: Radiology Impression Venous Doppler Study 11/26/24 04:23 Interpretation Summary Acute on chronic deep vein thrombosis is noted in the right femoral vein. Acute deep vein thrombosis noted in the right gastrocnemius vein. Chronic deep vein thrombosis noted in the right popliteal vein. Acute superficial vein thrombosis noted in the right great saphenous vein and accessory saphenous vein in the thigh and associated varicosities. Deep veins of the left lower extremity are patent and compressible segmentally. There is no evidence of left lower extremity deep vein thrombosis. The left great saphenous vein appears patent and compressible segmentally Ordering Physician: Nestor Chaidez Referring Physician: Kelsey Jacobs Performed By: Domenic Suggs, RVT Physical Exam Const alert and no apparent distress Constitutional Narrative: Obese. General Appearance: cooperative HEENT normocephalic, head/scalp atraumatic and moist oral mucous membranes Eyes PERRL, EOMs intact bilaterally and conjunctivae normal Neck supple General: trachea midline Chest inspection of chest normal Resp normal respiratory effort Auscultation: diminished lung sounds; Negative for rales, rhonchi or wheezes Cardio regular rate and regular rhythm GI normal to inspection, nondistended, normoactive bowel sounds Extremity General Extremity: edema; Negative for clubbing Skin General Skin Exam: venous stasis and dermatitis Neuro CN's II-XII intact bilaterally, moves all extremities and no focal motor deficits Psych cooperative and affect normal Charges/Coding Visit Charges Inpatient E&M: 34250 Subs Hosp L2
[2024-11-27] MEDS: APIXABAN 5 MG TABLET 10 MG PO ×2 (12:32→19:42)
[2024-11-27] MEDS: 0.9% Saline Lock 10 ML Syringe IV (12:36)
--- NOTE | 2024-11-27 14:49 | CASEMGMT ---
SHABNAM AQUINO updated by hospitalist that patient will discharge tomorrow on Eliquis. RN CM in to discuss needs at discharge. RN CM provided $10 copay card to activate for at discharge. Patient may qualify for home oxygen at discharge, prefers [employer]. Patient denies further needs or concerns. Patient had no further questions at this time. Green sheet placed on chart.
--- NOTE | 2024-11-27 18:39 | PCM.PN.HOSP ---
Reason for Visit Reason for Visit: Diagnoses Saddle embolus of pulmonary artery without acute cor pulmonale (11/26/24) Hypoxemia (11/26/24) Subjective Subjective Patient was seen and examined today, he states his breathing is much better, he still is requiring 2 L of nasal cannula oxygen to maintain his pulse ox. Patient will be reevaluated tomorrow for possible discharge home, he is aware that he may need oxygen set up if he is still hypoxic. Patient was started on Eliquis today. Objective Data Objective Data Vital Signs: Vital Signs Temp Pulse Resp BP Pulse Ox O2 Del Method O2 Flow Rate 97.7 F L 74 18 132/100 H 92 Nasal Cannula 2 11/27/24 14:05 11/27/24 14:05 11/27/24 14:05 11/27/24 14:05 11/27/24 14:05 11/27/24 15:05 11/27/24 15:05 Oxygen Flow Rate (L/min) 2 Oxygen Delivery Method Nasal Cannula Weight: 122.5 kg Body Mass Index (BMI) 36.6 Intake & Output: Intake and Output for Last 24 Hours 11/25/24 11/26/24 11/27/24 23:59 23:59 23:59 Intake Total 0 / 0 103.4 / 103.4 848.29 / 848.29 Output Total 0 / 0 350 / 350 Balance 0 / 0 103.4 / 103.4 498.29 / 498.29 Lab / Micro Data 11/26/24 08:55 11/26/24 08:55 Labs: Laboratory Results - last 24 hr 11/27/24 00:10: APTT 31.2 11/27/24 08:20: APTT 33.7 Micro: Microbiology 11/25/24 22:54 Mucosa - Nasopharyngeal SARS-CoV-2, Influenza & RSV (PCR) - Final Physical Exam Const alert, oriented x3, no apparent distress and average body habitus General Appearance: cooperative, well kempt and well developed Orientation / Consciousness: awake, oriented to person, oriented to place and oriented to time HEENT normocephalic and moist oral mucous membranes Eyes PERRL, EOMs intact bilaterally and conjunctivae normal Neck supple, no JVD and thyroid normal General: trachea midline Resp normal respiratory effort, no retractions, no use of accessory muscles and clear to auscultation bilaterally Auscultation: Negative for rales, rhonchi or wheezes Cardio regular rate, regular rhythm, S1 normal heart sound, S2 normal heart sound, no murmurs, no rub and no gallops GI normal to inspection, nondistended, normoactive bowel sounds, soft to palpation, non-tender and non-distended Extremity no clubbing, cyanosis or edema Skin no rashes or lesions noted General Skin Exam: no breakdown Neuro oriented x3, CN's II-XII intact bilaterally, no focal motor deficits and no sensory deficits noted Sensorium / Orientation: awake and alert Speech: speech normal Psych affect normal Assessment & Plan Assessment/Plan (1) Acute saddle pulmonary embolism: PLAN: Plan 1. Acute pulmonary embolism-patient was switched to Eliquis today from his heparin drip, he will be reevaluated tomorrow #2 hypoxia secondary to #1-oxygen will be weaned if possible #3 essential hypertension-patient will remain on his present medications #4 chronic depression-patient is on Lexapro Total clinical time spent by myself addressing patient's medical issues, reviewing all of his data, and collaborating with patient's care team: 35 minutes Charges/Coding Visit Charges Inpatient E&M: 74307 Subs Hosp L2
[2024-11-27] MEDS: Tamsulosin HCl 0.4 MG Capsule PO (19:42)
[2024-11-28 02:30] VITALS: BP 127/86; PULSE 76; RESP 16; TEMP 36.6; O2SAT 94
[2024-11-28 08:30] VITALS: BP 132/90; PULSE 71; RESP 18; TEMP 36.5; O2SAT 95
[2024-11-28] MEDS: APIXABAN 5 MG TABLET 10 MG PO (08:53)
[2024-11-28] MEDS: Escitalopram Oxalate 10 MG Tablet PO (08:53)
[2024-11-28 09:03] VITALS: O2SAT 90; O2SAT 93
[2024-11-28 10:47] VITALS: O2SAT 92
--- NOTE | 2024-11-28 11:33 | DCINST_ITS ---
Discharge Instructions Diet Discharge Diet: No restrictions DC O2, CPAP, BIPAP needs RN Home O2 Qualification: Home O2 Qualification: Is the patient on home oxygen No 11/28/24 09:03 Home O2 Qualification: AT REST 1- Pulse Ox at rest 93 11/28/24 09:03 Home O2 Qualification: WITH AMBULATION 1- Pulse Ox with ambulation 90 11/28/24 09:03 1- Oxygen Flow Rate with 0 11/28/24 09:03 ambulation 2- Pulse Ox with ambulation 85 11/27/24 11:46 2- Oxygen Flow Rate with 2 11/27/24 11:46 ambulation 3- Pulse Ox with ambulation 95 11/27/24 11:46 3- Oxygen Flow Rate with 4 11/27/24 11:46 ambulation Home O2 Discharge instructions: No Dressing / Incision Discharge Activity: Return to Normal Activity Weight Bearing Status: Full weight bearing Follow Up Care Test Results: Test results from this visit will be discussed in further detail at your follow- up appointment, if applicable. Discharge Plan Admission Admit Date/Time: 11/26/24 00:57 Primary Reason for Your Visit: Pulmonary embolism Attending Provider: Hemant Castillo Primary Care Provider: Kelsey Jacobs Consulting Providers: Nestor Chaidez; Shashank Millan Discharge Orders/Prescriptions Prescriptions: New Eliquis 5 mg Tablet 10 mg PO BID Qty: 64 0RF Rx Instructions: 10 mg twice a day for a total of 11 doses, then 5 mg twice a day thereafter Continued (DME) blood pressure monitor Kit See Rx Instructions .Route Qty: 1 0RF Rx Instructions: As directed amlodipine 5 mg tablet See Rx Instructions .ROUTE .COMPLEX Qty: 90 1RF Dose Instruction: TAKE 1 TABLET BY MOUTH AT BEDTIME Rx Instructions: TAKE 1 TABLET BY MOUTH AT BEDTIME escitalopram oxalate [Lexapro] 10 mg tablet 10 mg PO DAILY Qty: 90 1RF lisinopril-hydrochlorothiazide 20-12.5 mg tablet See Rx Instructions .ROUTE .COMPLEX Qty: 90 1RF Dose Instruction: TAKE 1 TABLET BY MOUTH EVERY DAY Rx Instructions: TAKE 1 TABLET BY MOUTH EVERY DAY tamsulosin [Flomax] 0.4 mg capsule 0.4 mg PO QHS Qty: 90 1RF Discontinued ibuprofen 800 mg tablet 800 mg PO BID PRN (Reason: Pain) Referrals / Follow Up: Kelsey Jacobs MD [Primary Care Provider] - Within 2 Weeks Shashank Millan MD [Med Staff - Active Staff] - See Referral Note (In 2 weeks, call for an appointment) Disposition Disposition (needs filled in before D/C Order can be placed): Home, Self Care
--- NOTE | 2024-11-28 11:46 | DS.PCM_ITS ---
Providers Date of Admission: 11/26/24 Date of Discharge: 11/28/24 Primary Care Physician: Dr. Kelsey Jacobs MD Consultations 11/26/24 04:25 Consult: Vascular Surgery Routine Consulting Provider: Shashank Millan Reason for Consult: saddle PE EMERGENT Consult: No Notified: Yes Date Notified: 11/26/24 Time Notified: 04:25 Method of Notification: ED Physician Initiated 11/26/24 07:38 Consult: Multi Slide Machine Tender / Pulmonary Medicine Routine Consulting Provider: Intensivists/Pulmonary Med Reason for Consult: PE EMERGENT Consult: No Notified: Yes Date Notified: 11/26/24 Time Notified: 09:06 Method of Notification: Text Reason For Visit: ACUTE SADDLE PE W/ HYPOXIA Diagnosis Discharge Diagnosis (1) Acute saddle pulmonary embolism: Status: Acute Code(s): I26.92 - Saddle embolus of pulmonary artery without acute cor pulmonale Plan 1. Acute pulmonary embolism-patient was switched to Eliquis today from his heparin drip, he will be reevaluated tomorrow #2 hypoxia secondary to #1-oxygen will be weaned if possible #3 essential hypertension-patient will remain on his present medications #4 chronic depression-patient is on Lexapro Total clinical time spent by myself addressing patient's medical issues, reviewing all of his data, and collaborating with patient's care team: 35 minutes Medications at Discharge Home Medications blood pressure monitor #1 ea 12/12/22 tamsulosin 0.4 mg capsule (Flomax) 0.4 mg PO QHS #90 caps 05/07/24 amlodipine 5 mg tablet See Rx Instructions .Route .COMPLEX #90 tabs 05/27/24 escitalopram oxalate 10 mg tablet (Lexapro) 10 mg PO DAILY #90 tabs 05/27/24 lisinopril 20 mg-hydrochlorothiazide 12.5 mg tablet See Rx Instructions .Route .COMPLEX #90 tabs 05/27/24 apixaban 5 mg tablet (Eliquis) 10 mg (2 x 5 mg) PO BID #64 tabs 11/28/24 Hospital Course Operations None Procedures - (Percutaneous mechanical thrombectomy of the bilateral pulmonary arteries, selective pulmonary angiogram) Summary of Care Provided Minutes Spent on Discharge: 31 Hospital Course: This 64-year-old white male was seen in the emergency room at [facility] with complaints of worsening shortness of breath. The shortness of breath had worsened over a period of 2 weeks. Workup in the emergency room included a CTA of the chest which showed extensive pulmonary emboli including a saddle embolus. He required 4 L of oxygen to maintain his pulse ox. Beta natruretic peptide was elevated at 353, the ER physician discussed the case with the vascular surgeon who consented to see the patient after he was admitted. Patient was admitted to PCU and evaluated by pulmonary medicine also, it was felt that he would benefit from a thrombectomy and the patient underwent a successful thrombectomy and had no complications. He eventually was weaned off oxygen and did not require any oxygen at the time of discharge. Patient was transitioned from heparin to Eliquis during his hospitalization. On 11/28/2024, patient was seen and examined: On examination he appeared in good health and spirits. Vital signs as documented. Skin warm and dry and without overt rashes. Neck without JVD, neck was supple, trachea midline, thyroid was normal. Lungs clear bilaterally, normal air movement was noted. Heart exam notable for regular rhythm, normal sounds and absence of murmurs, rubs or gallops. Abdomen unremarkable and without evidence of organomegaly, masses, or abdominal aortic enlargement. Bowel sounds are present, abdomen is not distended. Extremities nonedematous, no cyanosis was noted, no clubbing was noted. Neuro: Cranial nerves II through XII are grossly intact, no focal motor deficits were noted, sensation to light touch and pinprick intact, motor exam 5/5 throughout. Psych: Patient is alert and oriented x3, he does not appear anxious or depressed, he does not appear agitated. Patient appears stable for discharge home on 11/28/2024, patient was cautioned not to use any medication for pain except for Tylenol, he was not to use ibuprofen, Aleve, or naproxen. He was also instructed not to use any aspirin or nonsteroidal anti-inflammatory agents. Weight / BMI Weight Weight: 122.5 kg Body Mass Index (BMI) 36.6 ABG / Lab / Microbiology Data 11/26/24 08:55 11/26/24 08:55 Microbiology: Microbiology 11/25/24 22:54 Mucosa - Nasopharyngeal SARS-CoV-2, Influenza & RSV (PCR) - Final D/C Instructions Discharge Diet: No restrictions Weight Bearing Status: Full weight bearing DC O2, CPAP, BIPAP Needs RN Home O2 Qualification: Home O2 Qualification: Is the patient on home oxygen No 11/28/24 09:03 Home O2 Qualification: AT REST 1- Pulse Ox at rest 93 11/28/24 09:03 Home O2 Qualification: WITH AMBULATION 1- Pulse Ox with ambulation 90 11/28/24 09:03 1- Oxygen Flow Rate with 0 11/28/24 09:03 ambulation 2- Pulse Ox with ambulation 85 11/27/24 11:46 2- Oxygen Flow Rate with 2 11/27/24 11:46 ambulation 3- Pulse Ox with ambulation 95 11/27/24 11:46 3- Oxygen Flow Rate with 4 11/27/24 11:46 ambulation Home O2 Discharge instructions: No Meaningful Use Info Meaningful Use Meaningful Use Diagnoses (Choose all that apply): VTE Ischemic Stroke Statin Dosing Therapy Reference: STATIN DOSE THERAPY REFERENCE: * Patients > 75 years receive moderate or high dose statin therapy. * Patients 75 years or YOUNGER should receive HIGH intensity statin dose unless contraindicated. You will be required to document reason for non-treatment if statin daily dose does not meet guidelines. HIGH DOSE STATIN THERAPY DAILY Atorvastatin > than or = to 40 mg Rosuvastatin > than or = to 20 mg Amlodipine + Atorvastatin > than or = to 2.5/40 mg Ezetimibe + Simvastatin 10/80 mg Simvastatin 80mg VTE Anticoag overlap given w/in hospital stay or rx'd at dc?: No Pt receive overlap for 5 days?: No Reason overlap not ordered, prescribed, or given for 5 days: Treatment Not Indicated Discharge Plan Admission Admit Date/Time: 11/26/24 00:57 Primary Reason for Your Visit: Pulmonary embolism Attending Provider: Hemant Castillo Primary Care Provider: Kelsey Jacobs Consulting Providers: Nestor Chaidez; Shashank Millan Discharge Orders/Prescriptions Prescriptions: New Eliquis 5 mg Tablet 10 mg PO BID Qty: 64 0RF Rx Instructions: 10 mg twice a day for a total of 11 doses, then 5 mg twice a day thereafter Continued (DME) blood pressure monitor Kit See Rx Instructions .Route Qty: 1 0RF Rx Instructions: As directed amlodipine 5 mg tablet See Rx Instructions .ROUTE .COMPLEX Qty: 90 1RF Dose Instruction: TAKE 1 TABLET BY MOUTH AT BEDTIME Rx Instructions: TAKE 1 TABLET BY MOUTH AT BEDTIME escitalopram oxalate [Lexapro] 10 mg tablet 10 mg PO DAILY Qty: 90 1RF lisinopril-hydrochlorothiazide 20-12.5 mg tablet See Rx Instructions .ROUTE .COMPLEX Qty: 90 1RF Dose Instruction: TAKE 1 TABLET BY MOUTH EVERY DAY Rx Instructions: TAKE 1 TABLET BY MOUTH EVERY DAY tamsulosin [Flomax] 0.4 mg capsule 0.4 mg PO QHS Qty: 90 1RF Discontinued ibuprofen 800 mg tablet 800 mg PO BID PRN (Reason: Pain) Referrals / Follow Up: Kelsey Jacobs MD [Primary Care Provider] - Within 2 Weeks Shashank Millan MD [Med Staff - Active Staff] - See Referral Note (In 2 weeks, call for an appointment) Disposition Disposition (needs filled in before D/C Order can be placed): Home, Self Care Charges/Coding Visit Charges Inpatient E&M: 19733 Disch Hosp >30min
[2024-11-28 14:15] VITALS: BP 120/104; PULSE 77; RESP 20; TEMP 36.5; O2SAT 96
[2024-11-28 14:17] VITALS: BP 120/104; PULSE 77; RESP 20; TEMP 36.5; O2SAT 96
== END 2024-11-28 16:40 | disposition home or self-care (01) | DRG 164 ==
LOC: ED 11-26 01:03 → PCU 11-26 01:17
PROVIDERS: Surgery Trauma Surgery; Admitting Provider Hospitalist; Emergency Provider Emergency Medicine; PCP Internal Medicine; Visit Provider Internal Medicine
DX: I26.02 Saddle embolus of pulmonary artery with acute cor pulmonale (principal); N13.8 Other obstructive and reflux uropathy; I24.89 Other forms of acute ischemic heart disease; I10 Essential (primary) hypertension; F32.A Depression, unspecified; E66.812 Obesity, class 2; I87.2 Venous insufficiency (chronic) (peripheral); F17.210 Nicotine dependence, cigarettes, uncomplicated; Z68.36 Body mass index [BMI] 36.0-36.9, adult; Z86.16 Personal history of COVID-19; N40.1 Benign prostatic hyperplasia with lower urinary tract symptoms; R09.02 Hypoxemia
CPT/HCPCS: 36014; 36415; 37184; 37185; 71046; 71275; 76937; 80048; 83605; 83735; 83880; 84145; 84484; 85025; 85027; 85610; 85730; 87631; 93005; 93306; 93970; 94640; 99152; 99153; 99285; 99406; C1757; C1769; C1894; Q9957; Q9967; A4216; C1751; C8929

== ENCOUNTER → 2024-12-10 | Outpatient (CLI) | payer BC, SELFPAY ==
[2024-12-10 12:33] LABS: ALB/GLOB Ratio 0.9 RATIO (0.9-2.4); AST(SGOT) 17 U/L (15-37); Alanine Aminotransfer ALT/SGPT 34 U/L (16-61); Albumin, Serum 3.5 g/dL (3.2-5.0); Alkaline Phosphatase 82 U/L (45-117); Anion Gap 8 (5-15); BUN 25 mg/dL (7-18); BUN/Creat Ratio 23.1 RATIO (10-20); Calcium,Total 8.8 mg/dL (8.5-10.1); Chloride 104 mmol/L (98-107); Cholesterol 196 mg/dL (200); Creatinine, Serum 1.08 mg/dL (0.70-1.30); EST Glomerular Filtration Rate 74 mL/min (>60); Est Glom Filt Rate - Afr Amer 89 mL/min (>60); Globulin 3.7 g/dL (2.2-4.2); Glucose 113 mg/dL (74-106); High Density Lipoprotein 40 mg/dL; PSA,Total- Diagnostic 2.88 ng/mL (0.0-4.0); Potassium 3.8 mmol/L (3.5-5.1); Protein, Total 7.2 g/dL (6.4-8.2); Sodium Level 136 mmol/L (136-145); Triglycerides 232 mg/dL; Very Low Density Lipoprotein 46 mg/dL (5-40)
[2024-12-10 12:34] LABS: Absolute Lymphocyte Count 1.89 X10^3/uL (0.83-4.51); Basophil# 0.06 X10^3/uL; Basophil% 0.8 % (0-1); Eosinophil# 0.27 X10^3/uL; Eosinophils% 3.5 % (0-5); Hematocrit 46.5 % (40-54); Hemoglobin 15.2 g/dL (13.0-16.5); Lymphocyte # 1.89 X10^3/ul (0.83-4.51); Lymphocyte % 24.2 % (19-41); Mean Corp Hgb Conc 32.7 g/dL (32-36); Mean Corpuscular Hgb 28.9 pg (27.0-32.0); Mean Corpuscular Volume 88.4 fL (80-94); Mean Platelet Vol. 10.6 fl (6.2-12.0); Monocyte% 7.7 % (0-10); NRBC Flagged by Analyzer 0 % (0-5); Neutrophil # 4.97 X10^3/uL (2.7-7.7); Neutrophil % 63.4 % (47-70); Platelet Count 282 K/mm3 (150-450); RBC Distribution Width CV 12.9 % (11.6-14.6); RBC Distribution Width SD 41.9 fl (35.1-43.9); Red Blood Count 5.26 M/mm3 (4.6-6.2); White Blood Count 7.8 K/mm3 (4.4-11.0)
== END | disposition home or self-care (01) ==
LOC: BIMLAB 08:18
PROVIDERS: PCP Internal Medicine; Referring Provider Internal Medicine; Visit Provider Internal Medicine
DX: N39.43 Post-void dribbling (principal); I10 Essential (primary) hypertension; Z86.73 Personal history of transient ischemic attack (TIA), and cerebral infarction without residual deficits
CPT/HCPCS: 36415; 80053; 80061; 84153; 85025

== ENCOUNTER → 2024-12-29 | Outpatient (CLI) | payer BC, SELFPAY ==
--- NOTE | 2024-12-29 11:10 | ECHOLC_ITS ---
Reason For Study Reason For Study: PULMONARY EMBOLISM- S/P THROMBECTOMY Procedure This was a limited 2D transthoracic echocardiogram. The study was technically difficult. Contrast injection was performed. Exam performed in department. Left Ventricle Normal LV size. Mild concentric left ventricular hypertrophy. Left ventricular systolic function is normal. The left ventricular ejection fraction is 70 %. No regional wall motion abnormalities noted. Right Ventricle Normal RV size. Normal systolic function. Atria Normal left atrium. Mitral Valve Normal mitral valve. Tricuspid Valve Normal tricuspid valve. Aortic Valve Trisinus/trileaflet aortic valve. Pulmonic Valve The pulmonic valve is not well visualized. Great Vessels Normal aortic root. The pulmonary artery is normal size. Normal inferior vena cava. Pericardium/Pleural No pericardial effusion. Medication 22 gauge I.V. with prn adaptor inserted into left arm. Diluted definity 3ml given slow IV push to enhance endocardial definition. MMode/2D Measurements & Calculations LVIDd: 4.3 cm IVSd: 1.2 cm asc Aorta Diam: 4.3 cm LVIDs: 2.3 cm LVPWd: 1.2 cm RVDd: 4.0 cm FS: 47.2 % LAV(MOD-bp): 40.0 ml LVAd ap4: 48.6 cm2 LVAd ap2: 54.3 cm2 LAV(MOD-bp) Indexed: 16.6 ml/m2 LVLd ap4: 10.1 cm LVLd ap2: 10.5 cm LAV(MOD-sp2): 53.4 ml EDV(MOD-sp4): 184.0 ml EDV(MOD-sp2): 224.9 ml LAV(MOD-sp4): 30.7 ml EDV(sp4-el): 198.2 ml EDV(sp2-el): 237.9 ml LVAs ap4: 30.5 cm2 LVAs ap2: 35.1 cm2 LVLs ap4: 9.1 cm LVLs ap2: 9.6 cm ESV(MOD-sp4): 81.5 ml ESV(MOD-sp2): 102.6 ml ESV(sp4-el): 86.7 ml ESV(sp2-el): 108.5 ml EF(MOD-sp4): 55.7 % EF(MOD-sp2): 54.4 % EF(sp4-el): 56.3 % SV(MOD-sp4): 102.5 ml SV(MOD-sp2): 122.3 ml SV(sp4-el): 111.5 ml SI(MOD-sp4): 42.6 ml/m2 SI(MOD-sp2): 50.8 ml/m2 Ao sinus diam: 4.[address] Junction: 3.4 cm LA A4 area: 12.3 cm2 LA dimension(2D): 4.1 cm TAPSE: 2.3 cm RA A4 area: 12.6 cm2 Time Measurements MV dec time: 0.18 sec Doppler Measurements & Calculations MV E max charanjit: 73.1 cm/sec Lat Peak E' Charanjit: 13.0 cm/sec Med Peak E' Charanjit: 9.9 cm/sec MV A max charanjit: 68.5 cm/sec E/E' lat: 5.6 E/E' med: 7.4 MV E/A: 1.1 MV dec slope: 399.1 cm/sec2 PA V2 max: 79.1 cm/sec ECHO/Echo Limited w/Contrast Interpretation Summary Normal LV size. Left ventricular systolic function is normal. The left ventricular ejection fraction is 70 %. Mild concentric left ventricular hypertrophy. Contrast injection was performed. The study was technically difficult. Ordering Physician: Madyson Cardoso Referring Physician: Madyson Cardoso Performed By: Alma Herrera RDCS
== END | disposition home or self-care (01) ==
LOC: CVS 11:10
PROVIDERS: PCP Internal Medicine; Referring Provider Physician Assistant; Visit Provider Physician Assistant
DX: Z86.711 Personal history of pulmonary embolism (principal)
CPT/HCPCS: 93308; Q9957; A4216; C8924

== ENCOUNTER 2025-03-04 09:34 | Emergency (ER) | payer BC, SELFPAY ==
[2025-03-04 09:42] VITALS: BP 128/88; PULSE 62; RESP 19; TEMP 36.8; O2SAT 94; BMI 36.8
--- NOTE | 2025-03-04 09:42 | EKG12_ITS ---
Test Reason : Blood Pressure : */* mmHG Vent. Rate : 59 BPM Atrial Rate : 59 BPM P-R Int : 170 ms QRS Dur : 78 ms QT Int : 420 ms P-R-T Axes : -21 7 44 degrees QTcB Int : 415 ms Sinus bradycardia Otherwise normal ECG Confirmed by Suresh Quintana ([id number]), web editor ÁLVARO OROZCO ([id number]) on 03/05/2025 12:45:33 PM Referred By: HUONG Confirmed By: Suresh Quintana
--- NOTE | 2025-03-04 09:44 | EX.ED.DYSGE1 ---
HPI History of Present Illness Chief Complaint: Chest Pain Detail of Chief Complaint: Acute shortness of breath with heaviness xiphoid region Informant: patient Onset/Context/Timing Onset: Today and Hours Context: Sudden Onset Timing: Continuous Quality: Discomfort heaviness Location: Xiphoid region Current Severity: Mild Maximum Severity: Moderate Worsened by: Nothing Relieved by: Nothing Associated Symptoms Associated Symptoms: Dyspnea Narrative Narrative: Patient is a 64-year-old man who is a former smoker. He was diagnosed November of this year with a saddle pulmonary embolus with elevated troponin and BNP. He presents with abrupt onset of shortness of breath and discomfort in the xiphoid region. This is similar to when he had a pulmonary embolus. He does have history of hypertension on lisinopril and amlodipine. He is on apixaban 5 mg. He has not missed any doses. He does complain of some discomfort left leg. The discomfort is anterior. He has chronic swelling. There is no history of trauma. He denies history of peptic ulcer disease, hiatal hernia or reflux. He denies black or maroon-colored stool. He has no intolerance to greasy food. Patient has no other symptoms. Prior similar symptoms: Yes Recent Illness/Hospitalization: No PFSH PFSH Medical History Acute saddle pulmonary embolism COVID Tinnitus Marijuana use Thrombosis Wears glasses Depression Alcohol use Arthritis Prostate disease Restless legs Migraine headache Smoker BiPAP (biphasic positive airway pressure) dependence Shortness of breath on exertion History of stress test Hypertension Hx of hypoglycemia Hx of migraines Hx of seasonal allergies Lipodermatosclerosis Venous stasis ulcer of ankle with fat layer exposed Chronic venous hypertension w/ulcer and inflammation involv left side Chronic venous insufficiency Seizures Home Medications ?Medication ?Instructions ?Recorded ?Last Taken ?Type blood pressure monitor #1 ea 12/12/22 Unknown Rx amlodipine 5 mg tablet See Rx Instructions .Route 12/10/24 03/03/25 Rx .COMPLEX #90 tabs escitalopram oxalate 10 mg tablet 10 mg PO DAILY #90 tabs 12/10/24 03/04/25 Rx (Lexapro) tamsulosin 0.4 mg capsule (Flomax) 0.4 mg PO QHS #90 caps 12/10/24 03/03/25 Rx apixaban 5 mg tablet (Eliquis) 5 mg PO BID #60 tabs 12/27/24 03/04/25 Rx lisinopril 20 1 tab PO DAILY 03/04/25 03/04/25 History mg-hydrochlorothiazide 12.5 mg tablet Allergy/AdvReac Type Severity Reaction Status Date / Time Penicillins Allergy Unknown UNKNOWN Verified 03/04/25 09:44 Family History Father Angina at rest Anxiety Diabetes Myocardial infarction Heart disease Hypertension Hyperlipidemia Respiratory disease Cancer esophageal Mother Cancer lung Depression Hormone disorder Seizures Osteoporosis Brother Myocardial infarction Hyperlipidemia Surgical History History of thrombectomy History of incision and drainage H/O foot surgery History of hemorrhoidectomy Hx of hand surgery History of nasal surgery Social History household members: significant other housing: house current occupational status: employed current occupation: [employer] sexually active: Yes Smoking Status: Former smoker quit date: 11/26/24 Electronic Cigarette Use: not used alcohol intake: current alcohol intake frequency: holidays/special occasions only substance use type: former substance user Date of last use: marijuana what type of physical activity do you participate in: walking and additional details: lifting frequency: 5-6 times per week seatbelt use: always do you feel safe at home: Yes ROS ROS ED Constitutional Constitutional ED: Denies chills, fever(s), subjective or sweats Eyes Eyes: Denies blurry vision or change in vision ENT ENT ED: Denies ear pain, rhinorrhea or sore throat Cardiovascular Cardiovascular: Reports chest pain; Denies orthopnea, palpitations, paroxysmal nocturnal dyspnea or racing heartbeat Respiratory/Chest Respiratory/Chest: Reports dyspnea and dyspnea on exertion; Denies cough, orthopnea or paroxysmal nocturnal dyspnea Gastrointestinal Gastrointestinal: Denies abdominal pain, melena, nausea or vomiting Musculoskeletal Musculoskeletal: Denies arthralgias, back pain or myalgias Integumentary Reports rash and other Details: Patient has small wound with erythema mid anterior medial left leg. There is also evidence of venous stasis changes. Neurologic Neurologic: Denies paresthesias or weakness Psychiatric Psychiatric: Denies anxiety Endocrine Endocrinology: Denies cold intolerance or heat intolerance Hematologic/Lymphatic Hematologic/Lymphatic: Reports easy bruising Allergic/Immunologic Allergic/Immunologic ED: Denies mouth swelling or tongue swelling EXAM Physical Exam Const Vital Signs: 03/04/25 09:42 03/04/25 09:46 03/04/25 10:34 Temperature 98.3 F Temperature Source Oral Pulse Rate 62 53 L Respiratory Rate 19 H 14 Respiratory Effort Normal Blood Pressure 128/88 H 115/77 Blood Pressure Mean 101 89 Pulse Ox 94 99 Oxygen Delivery Method Room Air 03/04/25 11:00 03/04/25 12:00 Temperature Temperature Source Pulse Rate 56 L 58 L Respiratory Rate 17 14 Respiratory Effort Blood Pressure 135/88 H 148/88 H Blood Pressure Mean 103 108 Pulse Ox 93 94 Oxygen Delivery Method Positive well nourished and well developed Constitutional Narrative: BMI is 36.9. Vital signs are unremarkable. He is not hypoxic. He was hypoxic when he presented with the saddle pulmonary embolus. General Appearance ED: well developed; Negative for pallor HEENT Reports moist mucous membranes HEENT Narrative: Head is atraumatic normocephalic. Ears normal. Nares patent. Patient is wearing safety glasses. Eyes PERRL and EOMs intact bilaterally General Eye ED: Negative for pale conjunctiva or scleral icterus Neck no lymphadenopathy, supple and no JVD Chest Wall inspection of chest normal and palpation of chest normal Resp normal respiratory effort Cardio regular rate, regular rhythm, S1 normal heart sound, S2 normal heart sound and no murmurs GI normal to inspection, nondistended, normoactive bowel sounds, non-tender, non-distended and no masses; Negative for hepatosplenomegaly GI Narrative: Negative clinical Rhoades sign. Extremity Extremity Narrative: Swelling of both right and left leg. There is a wound medial mid anterior left leg that is slightly tender. There is no tenderness on the distribution deep venous system and there is no palpable cords. There is no venous dilatation. Neuro oriented x3, CN's II-XII intact bilaterally and no sensory deficits noted Sensorium / Orientation: alert Psych mental status grossly normal Skin Skin Narrative: Described under the extremity portion of the EMR. General Skin Exam: elasticity normal; Negative for jaundice or pallor MDM MDM MDM Narrative Medical decision making narrative: Since patient has similar presentation for PE will obtain D-dimer. Troponin was obtained as well since his troponins were elevated when he had his prior PE. Differential diagnosis would be cardiac versus noncardiac. Noncardiac would include pulmonary embolus, pneumonia, also need to consider GI i.e. reflux, biliary disease. Workup included EKG, chest x-ray appropriate blood work. Chest x-ray was obtained to determine if there is any obvious pulmonary findings to suggest other causes. Lab Data Attestation: I reviewed the patient's lab results. Lab results narrative: CBC is normal. Comprehensive metabolic panel is unremarkable. BUN BUN/creatinine ratio was elevated at 23-1. Lactate is less than 1. Troponin is normal at 10. D-dimer apparently was canceled and is being redrawn. Labs: Laboratory Results - last 24 hr 03/04/25 03/04/25 03/04/25 09:47 10:20 11:58 WBC 6.3 RBC 5.46 Hgb 16.3 Hct 47.5 MCV 87.0 MCH 29.9 MCHC 34.3 RDW Std Deviation 39.7 RDW Coeff of Adrian 12.6 Plt Count 229 MPV 10.3 Immature Gran % (Auto) 0.500 Neut % (Auto) 52.8 Lymph % (Auto) 34.1 [place] % (Auto) 8.0 Eos % (Auto) 3.8 Baso % (Auto) 0.8 Absolute Neuts (auto) 3.3 Absolute Lymphs (auto) 2.13 Nucleated RBC % 0 D-Dimer Quant (PE/DVT) Cancelled 0.30 Sodium 137 Potassium 4.3 Chloride 101 Carbon Dioxide 24.9 Anion Gap 11 BUN 28 H Creatinine 1.18 Estim Creat Clear Calc 88.03 Est GFR (MDRD) Non-Af 70 BUN/Creatinine Ratio 23.6 H Glucose 96 Lactic Acid < 1.0 Calcium 9.1 Total Bilirubin 0.40 AST 23 ALT 19 Alkaline Phosphatase 85 Troponin T High Sens 10 Troponin T Hi Sens 2 Hr 12 Total Protein 7.4 Albumin 4.4 Globulin 3.1 Albumin/Globulin Ratio 1.4 D-dimer is normal. Lactate is normal. Awaiting results of t repeat troponin. Initial was 10, which is normal second troponin is 12 with a delta of 2. This is negative. Therefore will discharge to home. Radiography Chest X-Ray - ED: 2 View, Read by ED Physician (Review interpreted by me at 1041. There are some minimal chronic changes. Cardiac silhouette size normal. Lung parenchyma is unremarkable. No effusion, infiltrate cephalization. There is no Insa pneumothorax. Osseous structures reveal mild degenerative changes in the mid dorsal vertebral jez) and No Acute Disease (Unchanged from November chest x-ray.) Diagnostic Testing: Clinical Impression(s) from Imaging Studies Chest X-Ray 03/04/25 10:28 IMPRESSION: NO ACUTE FINDINGS. Reading Location: [facility] Rhythm Strip Rhythm Strip: Bradycardia Rate: 52 Ectopy: None EKG Initial EKG: Attestation: I personally reviewed and interpreted this EKG as follows: Interpretation: Sinus Bradycardia (Rate is 59. IA intervals 170 ms Rickers duration 78 ms. QT duration 120 ms. Voltage is decreased. Computer is reading possible inferior infarct. The morphology of the QRS complex and ST segment is unchanged from November 25, 2024. The amplitude is slightly less today.) Prior: Unchanged (November 25, 2024) Treatment and Re-Evaluation :: Patient was informed of results. Plan is to discharge to home Discharge Plan Triage Chief Complaint: Chest Pain ED Provider: Blake Andrea Dx/Rx/DC Orders Clinical Impression: Chest discomfort, Chronic venous insufficiency, Acute dyspnea, Hx of pulmonary embolus, Anticoagulant long-term use Instructions: ED Chest Pain, Uncertain Cause Prescriptions: No Action (DME) blood pressure monitor Kit See Rx Instructions .Route Qty: 1 0RF Rx Instructions: As directed amlodipine 5 mg tablet See Rx Instructions .ROUTE .COMPLEX Qty: 90 1RF Dose Instruction: TAKE 1 TABLET BY MOUTH AT BEDTIME Rx Instructions: TAKE 1 TABLET BY MOUTH AT BEDTIME escitalopram oxalate [Lexapro] 10 mg tablet 10 mg PO DAILY Qty: 90 1RF tamsulosin [Flomax] 0.4 mg capsule 0.4 mg PO QHS Qty: 90 1RF lisinopril-hydrochlorothiazide 20-12.5 mg tablet 1 tab PO DAILY Eliquis 5 mg tablet 5 mg PO BID Qty: 60 2RF Primary Care Provider: Kelsey Jacobs Referrals: Kelsey Jacobs MD [Primary Care Provider] - 3-5 Days Print Language: Sami Disposition Disposition: Home, Self Care
[2025-03-04 10:01] LABS: Absolute Lymphocyte Count 2.13 X10^3/uL (0.83-4.51); Absolute Neutrophil Count 3.3 X10^3/uL (2.0-7.7); Basophil# 0.05 X10^3/uL; Basophil% 0.8 % (0-1); Eosinophil# 0.24 X10^3/uL; Eosinophils% 3.8 % (0-5); Hematocrit 47.5 % (40-54); Hemoglobin 16.3 g/dL (13.0-16.5); Lymphocyte # 2.13 X10^3/ul (0.83-4.51); Lymphocyte % 34.1 % (19-41); Mean Corp Hgb Conc 34.3 g/dL (32-36); Mean Corpuscular Hgb 29.9 pg (27.0-32.0); Mean Platelet Vol. 10.3 fl (6.2-12.0); NRBC Flagged by Analyzer 0 % (0-5); Neutrophil % 52.8 % (47-70); Platelet Count 229 K/mm3 (150-450); RBC Distribution Width CV 12.6 % (11.6-14.6); RBC Distribution Width SD 39.7 fl (35.1-43.9); Red Blood Count 5.46 M/mm3 (4.6-6.2); White Blood Count 6.3 K/mm3 (4.4-11.0)
[2025-03-04 10:22] LABS: Troponin T High Sensitivity 10 ng/L (<=22)
[2025-03-04 10:24] LABS: ALB/GLOB Ratio 1.4 RATIO (0.9-2.4); AST(SGOT) 23 U/L (<=37); Alanine Aminotransfer ALT/SGPT 19 U/L (<=46); Albumin, Serum 4.4 g/dL (3.4-4.8); Alkaline Phosphatase 85 U/L (40-129); Anion Gap 11 (5-15); BUN 28 mg/dL (4-19); BUN/Creat Ratio 23.6 RATIO (10-20); Calcium,Total 9.1 mg/dL (7.6-11.0); Carbon Dioxide 24.9 mmol/L (21.0-32.0); Chloride 101 mmol/L (98-108); Creatinine, Serum 1.18 mg/dL (0.70-1.20); EST Glomerular Filtration Rate 70 (>60); Estimated Creatinine Clearance 88.03 ml/min (50-250); Globulin 3.1 g/dL (2.2-4.2); Glucose 96 mg/dL (70-99); Lactic Acid < 1.0 mmol/L (0.0-2.0); Potassium 4.3 mmol/L (3.3-5.1); Protein, Total 7.4 g/dL (5.9-8.4); Sodium Level 137 mmol/L (133-145)
--- NOTE | 2025-03-04 10:28 | RAD_ITS ---
PROCEDURE: CHEST PA AND LATERAL 03/04/2025 REASON FOR EXAM: SUBXIPHOID DISCOMFORT AND DYSPNEA TECHNIQUE: Frontal and lateral views of the chest. COMPARISON: None FINDINGS: Hardware: EKG electrodes are seen. Heart: The heart size is normal. Mediastinum: The mediastinal contour is unremarkable. Lungs: The lungs are clear. Bones: Degenerative changes are identified within the thoracic spine. RAD/Chest PA and Lateral IMPRESSION: NO ACUTE FINDINGS. Reading Location: [place] [id number]
[2025-03-04 10:34] VITALS: BP 115/77; PULSE 53; RESP 14; O2SAT 99
[2025-03-04 11:00] VITALS: BP 135/88; PULSE 56; RESP 17; O2SAT 93
[2025-03-04 12:00] VITALS: BP 148/88; PULSE 58; RESP 14; O2SAT 94
[2025-03-04 12:29] LABS: Troponin T High Sens 2 HR 12 ng/L (<=22)
[2025-03-04 13:00] VITALS: BP 140/78; PULSE 74; RESP 13; O2SAT 94
[2025-03-04 13:43] VITALS: BP 140/78; PULSE 74; RESP 13; TEMP 36.6; O2SAT 94
== END 2025-03-04 13:43 | disposition home or self-care (01) ==
PROVIDERS: Emergency Provider Emergency Medicine; PCP Internal Medicine; Visit Provider Emergency Medicine
DX: R07.89 Other chest pain (principal); I87.2 Venous insufficiency (chronic) (peripheral); I10 Essential (primary) hypertension; Z79.899 Other long term (current) drug therapy; Z79.01 Long term (current) use of anticoagulants; Z87.891 Personal history of nicotine dependence; Z86.711 Personal history of pulmonary embolism; Z86.16 Personal history of COVID-19
CPT/HCPCS: 71046; 80053; 83605; 84484; 85025; 85379; 93005; 99285; A4216

== ENCOUNTER 2025-03-23 17:52 | Emergency (ER) | payer BC, SELFPAY ==
[2025-03-23 17:53] VITALS: BP 146/92; PULSE 65; RESP 18; TEMP 37.1; O2SAT 97; BMI 37.3
[2025-03-23 17:57] VITALS: BP 146/92; PULSE 65; RESP 18; TEMP 37.1; O2SAT 97
--- NOTE | 2025-03-23 18:16 | EX.ED.DYSGE1 ---
HPI History of Present Illness Chief Complaint: Cellulitis Informant: patient and spouse/S.O. Onset/Context/Timing Onset: Days Context: Gradual Onset Timing: Continuous Current Severity: Moderate Maximum Severity: Moderate Narrative Narrative: 64-year-old male history of DVT and pulmonary emboli on Eliquis. States he is having left calf pain, redness and fever as high as 103 last 3 days. Denies vomiting or diarrhea. Prior similar symptoms: No Recent Illness/Hospitalization: No PFSH PFSH Medical History Acute saddle pulmonary embolism COVID Tinnitus Marijuana use Thrombosis Wears glasses Depression Alcohol use Arthritis Prostate disease Restless legs Migraine headache Smoker BiPAP (biphasic positive airway pressure) dependence Shortness of breath on exertion History of stress test Hypertension Hx of hypoglycemia Hx of migraines Hx of seasonal allergies Lipodermatosclerosis Venous stasis ulcer of ankle with fat layer exposed Chronic venous hypertension w/ulcer and inflammation involv left side Chronic venous insufficiency Seizures Home Medications ?Medication ?Instructions ?Recorded ?Last Taken ?Type blood pressure monitor #1 ea 12/12/22 Unknown Rx amlodipine 5 mg tablet See Rx Instructions .Route 12/10/24 03/03/25 Rx .COMPLEX #90 tabs escitalopram oxalate 10 mg tablet 10 mg PO DAILY #90 tabs 12/10/24 03/04/25 Rx (Lexapro) tamsulosin 0.4 mg capsule (Flomax) 0.4 mg PO QHS #90 caps 12/10/24 03/03/25 Rx apixaban 5 mg tablet (Eliquis) 5 mg PO BID #60 tabs 12/27/24 03/04/25 Rx lisinopril 20 1 tab PO DAILY 03/04/25 03/04/25 History mg-hydrochlorothiazide 12.5 mg tablet clindamycin HCl 300 mg capsule 300 mg PO Q6H #40 CAPSULES 03/23/25 Unknown Rx (Cleocin HCl) Allergy/AdvReac Type Severity Reaction Status Date / Time Penicillins Allergy Unknown UNKNOWN Verified 03/23/25 17:53 Family History Father Angina at rest Anxiety Diabetes Myocardial infarction Heart disease Hypertension Hyperlipidemia Respiratory disease Cancer esophageal Mother Cancer lung Depression Hormone disorder Seizures Osteoporosis Brother Myocardial infarction Hyperlipidemia Surgical History History of thrombectomy History of incision and drainage H/O foot surgery History of hemorrhoidectomy Hx of hand surgery History of nasal surgery Social History household members: significant other housing: house current occupational status: employed current occupation: [employer] sexually active: Yes Smoking Status: Former smoker quit date: 11/26/24 Electronic Cigarette Use: not used alcohol intake: current alcohol intake frequency: holidays/special occasions only substance use type: former substance user Date of last use: marijuana what type of physical activity do you participate in: walking and additional details: lifting frequency: 5-6 times per week seatbelt use: always do you feel safe at home: Yes ROS ROS ED ROS Narrative Fever. Left calf pain, redness and swelling. Constitutional Constitutional ED: Reports chills and fever(s) Eyes Eyes: Denies blurry vision ENT ENT ED: Denies ear pain Cardiovascular Cardiovascular: Denies chest pain Respiratory/Chest Respiratory/Chest: Denies cough or dyspnea Gastrointestinal Gastrointestinal: Denies abdominal pain Genitourinary Genitourinary ED: Denies dysuria or hematuria Musculoskeletal Musculoskeletal: Denies arthralgias or back pain Integumentary Reports rash; Denies abscess or Abrasions Neurologic Neurologic: Denies headache(s) Psychiatric Psychiatric: Denies anxiety Endocrine Endocrinology: Denies cold intolerance Hematologic/Lymphatic Hematologic/Lymphatic: Reports none Allergic/Immunologic Allergic/Immunologic ED: Denies mouth swelling, tongue swelling or urticaria EXAM Physical Exam Narrative Exam Narrative: 64-year-old male no acute distress. Vital signs stable afebrile. H EENT exam pupils round react light. Mytrex members. Neck nontender no JVD. Lungs clear to auscultation bilaterally. Heart regular rhythm rate about 65 no murmur. Chest wall ribs nontender. Abdomen soft nontender. Moving all 4 extremities. Neurovascular intact. Left lower leg swollen. Calf redness over basically the entire posterior calf. Left foot neurovascularly intact with normal dorsi plantarflexion. Normal motor strength. Normal sensation. Neurologically is awake and alert. No focal motor deficits. Leg exam is consistent with a cellulitis. Const Vital Signs: 03/23/25 17:53 03/23/25 17:57 03/23/25 18:57 Temperature 98.8 F 98.8 F 98.8 F Temperature Source Oral Oral Oral Pulse Rate 65 65 59 L Respiratory Rate 18 18 18 Blood Pressure 146/92 H 146/92 H 119/72 Blood Pressure Mean 110 110 87 Pulse Ox 97 97 93 Oxygen Delivery Method Room Air Room Air Room Air 03/23/25 19:00 Temperature 98.8 F Temperature Source Oral Pulse Rate 60 Respiratory Rate 18 Blood Pressure 119/72 Blood Pressure Mean 87 Pulse Ox 94 Oxygen Delivery Method Room Air Positive well nourished and well developed; Negative for cachectic, contractures or unkempt General Appearance ED: well developed and NAD; Negative for unkempt, cachectic, contractures, cyanotic, diaphoretic or pallor Nutritional Appearance: Negative for cachectic HEENT Reports moist mucous membranes Eyes PERRL and EOMs intact bilaterally Neck no lymphadenopathy, supple and no JVD Chest Wall inspection of chest normal and palpation of chest normal Resp normal respiratory effort and clear to auscultation bilaterally Cardio regular rate, regular rhythm, S1 normal heart sound, S2 normal heart sound and no murmurs GI normal to inspection, nondistended, normoactive bowel sounds, non-tender, non-distended and no masses Palpation: soft; Negative for tender, guarding or rebound tenderness present Back/Spine no CVA tenderness Extremity Negative for normal to inspection Extremity Narrative: Left calf edematous, tender and cellulitis. From basically the ankle up to just below the knee. No lymphangitic streaking. No inguinal lymphadenopathy. No crepitance. No necrotic skin. No sloughing of skin. Left foot is neurovascularly intact with normal dorsi plantarflexion. No signs of septic joint. General Extremety ED: Yes edema and tenderness General Extremity: edema Neuro oriented x3 and CN's II-XII intact bilaterally Sensorium / Orientation: alert; Negative for orientation impaired, lethargic or stuporous Motor Exam: strength 5/5 throughout Psych mental status grossly normal Appearance: Negative for unkempt Skin No no rashes or lesions noted General Skin Exam: Negative for jaundice or pallor Rashes: rashes noted MDM MDM MDM Narrative Medical decision making narrative: 64-year-old male left lower extremity cellulitis. He has reportedly a penicillin allergy when he developed a rash as a child. We started on clindamycin IV. Screening labs to be obtained. He had a history of DVT but he is on Eliquis and IV think this is obvious cellulitis and not a DVT. I do not think he needs venous studies. Repeat exam at 8:05 PM patient doing well. I reevaluated his left calf he has a cellulitis but it is not spread it is not going up his leg. There is no lymphangitic streaking. There is no necrotic skin. Foot is neurovascularly intact. There is no crepitance. And there is no inguinal lymphadenopathy. We discussed options of admission versus home oral antibiotics. He much prefers to go home and knows return if he is getting worse instead of better. He was given a dose of clindamycin IV here. Patient be written for clindamycin 304 times a day for 10 days outpatient follow-up. History & Record Review Discussion w/independent historian: Patient and Family Additional record(s) reviewed:: Prior inpatient record, Prior outpatient record, Prior ED visit and Prior labs Lab Data Attestation: I reviewed the patient's lab results. Lab results narrative: CBC unremarkable white count 8. H&H 14 and 42. Platelets 232. Electrolytes show gap 11. BUN of 31 creatinine 1.1. Glucose 105. Labs: Laboratory Results - last 24 hr 03/23/25 18:43 WBC 8.1 RBC 4.84 Hgb 14.6 Hct 42.2 MCV 87.2 MCH 30.2 MCHC 34.6 RDW Std Deviation 41.1 RDW Coeff of [place] 12.9 Plt Count 232 MPV 10.1 Immature Gran % (Auto) 0.500 Neut % (Auto) 65.8 Lymph % (Auto) 22.8 [place] % (Auto) 7.5 Eos % (Auto) 2.8 Baso % (Auto) 0.6 Absolute Neuts (auto) 5.3 Absolute Lymphs (auto) 1.85 Nucleated RBC % 0 Sodium 137 Potassium 3.8 Chloride 102 Carbon Dioxide 24.6 Anion Gap 11 BUN 31 H Creatinine 1.17 Estim Creat Clear Calc 89.43 Est GFR (MDRD) Non-Af 70 BUN/Creatinine Ratio 26.5 H Glucose 105 H Calcium 8.7 Discharge Plan Triage Chief Complaint: Cellulitis ED Provider: Mateo Hoffman Dx/Rx/DC Orders Clinical Impression: Cellulitis, History of deep vein thrombosis, Chronic anticoagulation Instructions: ED Cellulitis Prescriptions: New clindamycin HCl [Cleocin HCl] 300 mg capsule 300 mg PO Q6H Qty: 40 0RF No Action (DME) blood pressure monitor Kit See Rx Instructions .Route Qty: 1 0RF Rx Instructions: As directed amlodipine 5 mg tablet See Rx Instructions .ROUTE .COMPLEX Qty: 90 1RF Dose Instruction: TAKE 1 TABLET BY MOUTH AT BEDTIME Rx Instructions: TAKE 1 TABLET BY MOUTH AT BEDTIME escitalopram oxalate [Lexapro] 10 mg tablet 10 mg PO DAILY Qty: 90 1RF tamsulosin [Flomax] 0.4 mg capsule 0.4 mg PO QHS Qty: 90 1RF lisinopril-hydrochlorothiazide 20-12.5 mg tablet 1 tab PO DAILY Eliquis 5 mg tablet 5 mg PO BID Qty: 60 2RF Primary Care Provider: Kelsey Jacobs Referrals: Kelsey Jacobs MD [Primary Care Provider] - 3-5 Days Activity Restrictions/Additional Instructions: Soft tissue infection called cellulitis of the left lower leg. Tylenol for pain. The antibiotic clindamycin 4 times a day for the next 10 days. Return if getting worse if you feel worse or if the infection is spreading up your leg past her knee. Follow-up with your doctor in the next several days to ensure this is improving instead of getting worse. Elevate your leg to decrease pain and swelling. Print Language: Ukrainian Disposition Disposition: Home, Self Care
[2025-03-23 18:57] VITALS: BP 119/72; PULSE 59; RESP 18; TEMP 37.1; O2SAT 93
[2025-03-23 18:59] LABS: Absolute Lymphocyte Count 1.85 X10^3/uL (0.83-4.51); Absolute Neutrophil Count 5.3 X10^3/uL (2.0-7.7); Basophil# 0.05 X10^3/uL; Basophil% 0.6 % (0-1); Eosinophil# 0.23 X10^3/uL; Eosinophils% 2.8 % (0-5); Hematocrit 42.2 % (40-54); Hemoglobin 14.6 g/dL (13.0-16.5); Lymphocyte # 1.85 X10^3/ul (0.83-4.51); Lymphocyte % 22.8 % (19-41); Mean Corp Hgb Conc 34.6 g/dL (32-36); Mean Corpuscular Hgb 30.2 pg (27.0-32.0); Mean Corpuscular Volume 87.2 fL (80-94); Mean Platelet Vol. 10.1 fl (6.2-12.0); Monocyte# 0.61 X10^3/uL; Monocyte% 7.5 % (0-10); NRBC Flagged by Analyzer 0 % (0-5); Neutrophil # 5.34 X10^3/uL (2.7-7.7); Neutrophil % 65.8 % (47-70); Platelet Count 232 K/mm3 (150-450); RBC Distribution Width CV 12.9 % (11.6-14.6); RBC Distribution Width SD 41.1 fl (35.1-43.9); Red Blood Count 4.84 M/mm3 (4.6-6.2); White Blood Count 8.1 K/mm3 (4.4-11.0)
[2025-03-23 19:00] VITALS: BP 119/72; PULSE 60; RESP 18; TEMP 37.1; O2SAT 94
[2025-03-23] MEDS: Clindamycin 900 MG/50 ML BAG 75 MG IV (19:02)
[2025-03-23 19:17] LABS: Anion Gap 11 (5-15); BUN 31 mg/dL (4-19); BUN/Creat Ratio 26.5 RATIO (10-20); Calcium,Total 8.7 mg/dL (7.6-11.0); Carbon Dioxide 24.6 mmol/L (21.0-32.0); Chloride 102 mmol/L (98-108); Creatinine, Serum 1.17 mg/dL (0.70-1.20); EST Glomerular Filtration Rate 70 (>60); Estimated Creatinine Clearance 89.43 ml/min (50-250); Glucose 105 mg/dL (70-99); Potassium 3.8 mmol/L (3.3-5.1); Sodium Level 137 mmol/L (133-145)
[2025-03-23 19:52] VITALS: PULSE 64; O2SAT 95
[2025-03-23 20:24] VITALS: BP 119/72; PULSE 64; RESP 18; TEMP 37.1; O2SAT 95
== END 2025-03-23 21:15 | disposition home or self-care (01) ==
PROVIDERS: Emergency Provider Emergency Medicine; PCP Internal Medicine; Visit Provider Emergency Medicine
DX: L03.116 Cellulitis of left lower limb (principal); Z87.891 Personal history of nicotine dependence; Z86.718 Personal history of other venous thrombosis and embolism; Z79.01 Long term (current) use of anticoagulants; Z86.711 Personal history of pulmonary embolism; Z86.16 Personal history of COVID-19
CPT/HCPCS: 80048; 85025; 96365; 96366; 99283

== ENCOUNTER → 2025-05-24 | Outpatient (CLI) | payer BC, SELFPAY | END | disposition home or self-care (01) | LOC: CVS 07:54 | PROVIDERS: PCP Internal Medicine; Referring Provider Physician Assistant; Visit Provider Physician Assistant | DX: I83.003 Varicose veins of unspecified lower extremity with ulcer of ankle (principal); L97.302 Non-pressure chronic ulcer of unspecified ankle with fat layer exposed; I87.2 Venous insufficiency (chronic) (peripheral) | CPT/HCPCS: 93970 ==

== ENCOUNTER 2025-06-21 07:06 | Day surgery (SDC) | payer BC, SELFPAY ==
[2025-06-18 07:50] VITALS: BMI 36.1
--- OUTSIDE RECORDS SUMMARY | 2025-06-21 07:18 | XMS RPT_ITS | CCD ---
Author Organization [facility]ini[facility] Care Team Providers Care Wharf Operator Name Role Phone Care Physician, No Primary Primary Care Provider Unavailable Dr. Fred Watson Attending Provider Dr. Nico John Referring Provider [phone] Jovanna Diaz Primary Care Provider Dr. Jovanna Diaz S Referring Provider [phone] Kelsey Jacobs Attending Provider Dr. Kelsey Jacobs Primary Care Provider Care Physician, No Primary Primary Care Provider Unavailable Dr. Fred Watson Attending Provider [phone] Nico John Referring Provider [phone] Jovanna Diaz Primary Care Provider Dr. Jovanna Diaz Referring Provider [phone] Kelsey Jacobs Attending Provider Dr. Kelsey Jacobs Primary Care Provider Dr. Kelsey Jacobs Referring Provider Dr. Jovanna Diaz S Referring Provider [phone] Kelsey Jacobs Attending Provider Dr. Kelsey Jacobs MD Primary Care Provider Dr. Juan Jose Knight DO Emergency Provider Dr. Nestor Chaidez DO Admit Provider [phone] Dr. Nestor Chaidez DO Other Provider [phone] Dr. Hemant Castillo DO Attending Provider Yana STEINER, Dr. Encarnacion Other Provider Yemi STEINER, Dr. Mccartney Attending Provider Dm DOE, Dr. Baez Referring Provider Jonathan DOE, Dr. Marcos Other Provider Rhea STEINER, Dr. Rachel Other Provider Kristina STEINER, Dr. Peoples Other Provider Rashawn STEINER, Dr. Godwin Other Provider [phone] Mariusz DOE, Dr. Arias Attending Provider Mariusz DOE, Dr. Arias Other Provider Eliud STEINER, Dr. Spike Alberto Other Provider [phone] Ariela STEINER, Dr. Corado Other Provider Terry STEINER, Dr. Piña Other Provider Roe STEINER, Dr. Manning Other Provider [phone] Shanna STEINER, Dr. Tyler Other Provider [phone] Dr. Praneeth Monsalve MD Other Provider [phone] Dr. Juan Jose Rios MD Other Provider Anastacia STEINER, Dr. Cali Other Provider [phone] Cesar Paul MD [facility] Rutledge [facility], Dr. Jimenez Other Provider Dr. Mt Jovel MD Other Provider [phone] Laquita STEINER, Dr. Benjamin Other Provider Dr. Jaime Cavazos DO Other Provider [phone] Anastasiya Longoria MD Other Provider [phone] Dr. Bakari Lin MD Other Provider [phone] Dr. Oscar Prakash DO Other Provider Tyler STEINER, Dr. Blade Other Provider [phone] Devon STEINER, Dr. Dillon Other Provider Yana STEINER, Dr. Encarnacion Attending Provider [phone] Reynaldo STEINER, Dr. Cole Referring Provider Cardoso PA, Madyson Attending Provider [phone] Reynaldo STEINER, Dr. Cole Attending Provider Cardoso PA, Madyson Referring Provider [phone] Huong STEINER, Dr. Lozano Emergency Provider Huong STEINER, Dr. Lozano Attending Provider Dalton STEINER, Dr. Galindo Emergency Provider Reynaldo STEINER, Dr. Cole Primary Care Provider [phone] Reynaldo STEINER, Dr. Cole Referring Provider Cardoso PA, Madyson Attending Provider [phone] Yemi STEINER, Dr. Mccartney Attending Provider [phone] Dalton STEINER, Dr. Galindo Attending Provider [place] NICE, Colin Attending Provider [phone] Reynaldo STEINER, Dr. Cole Primary Care Provider [phone] Reynaldo STEINER, Dr. Cole Referring Provider Janae PA, Madyson Attending Provider [phone] Cardoso PA, Madyson Referring Provider [phone] Yana STEINER, Dr. Encarnacion Attending Provider [phone] Nestor Chaidez Admitting Unavailable Nestor Chaidez Consulting Unavailable Reynaldo, Kelsey Primary Care Unavailable Terafshanky, Hemant Attending Unavailable Shashank Millan Consulting Unavailable TerafshankyHemant Consulting Unavailable Shashank Millan Attending Unavailable [place], Kelsey Primary Care Unavailable Cardoso, Madyson Referring Unavailable Reynaldo, Kelsey Primary Care Unavailable Reynaldo, Kelsey Referring Unavailable [place], Kelsey Attending Unavailable Nestor Chaidez Attending Unavailable Cardoso, Madyson Attending Unavailable [place], Kelsey Primary Care Unavailable Tereletsky, Hemant Referring Unavailable Bib Bragg Attending Unavailable [place], Kelsey Primary Care Unavailable Reynaldo, Kelsey Primary Care Unavailable Yemi, [place] Attending Unavailable Blake Andrea Attending Unavailable Reynaldo, Kelsey Primary Care Unavailable Trezevant, Shashank Attending Unavailable Reynaldo, Kelsey Primary Care Unavailable Yana, Shashank Referring Unavailable Cardoso, Madysno Attending Unavailable Cardoso, Madyson Referring Unavailable Reynaldo, Kelsey Primary Care Unavailable Mateo Hoffman Attending Unavailable Reynaldo, Kelsey Primary Care Unavailable Reynaldo, Kelsey Referring Unavailable Colin Lim Attending Unavailable [place], Kelsey Primary Care Unavailable Nestor Chaidez Consulting Unavailable Nestor Chaidez Admitting Unavailable Hemant Castillo Attending Unavailable Yana Shashank Consulting Unavailable Cardoso, Madyson Attending Unavailable Cardoso, Madyson Referring Unavailable Reynaldo, Kelsey Primary Care Unavailable Reynaldo, Kelsey Primary Care Unavailable [place], Kelsey Referring Unavailable Reynaldo, Kelsey Attending Unavailable Cardoso, Madyson Attending Unavailable Reynaldo, Kelsey Primary Care Unavailable Reynaldo, Kelsey Referring Unavailable Cardoso, Madyson Attending Unavailable Reynaldo, Kelsey Primary Care Unavailable Reynaldo, Kelsey Referring Unavailable Nestor Chaidez Referring Unavailable Hugo Vee Attending Unavailable Wilson Wilkerson Consulting Unavailable Shelton Acevedo Consulting Unavailable Tato Morocho Consulting Unavailable Hugo Vee Consulting Unavailable Spike Kline Consulting Unavailable Mak Titus Consulting Unavailable Wang Stewart Consulting Unavailable Kerri Au Consulting UnavailJayson Ford Consulting Unavailable Praneeth Monsalve Consulting Unavailable Juan Jose Rios Consulting Unavailable Karely Galaviz Consulting Unavailable Aljundi, Lamia Consulting Unavailable Aamir, Tony Consulting Unavailable [place], Mt Consulting Unavailable Laquita, Sourav Consulting Unavailable Phillip Cavazosdeep Consulting Unavailable Anastasiya Longoria Consulting Unavailable Bakari Lin Consulting Unavailable Oscar Prakash Consulting Unavailable Blade Scott Consulting Unavailable Santana Osorio Consulting Unavailable Shashank Millan Attending Unavailable Allergies Allergy Classification Reported Allergen(s) Allergy Type Date of Onset Reaction(s) Facility (5 sources) Penicillins Allergy to substance 03-04-2025 UNKNOWN [facility] (1 source) Penicillins Drug allergy (disorder) 06-01-2025 [facility] Repository Medications Current Medications Medication Drug Class(es) Dates Sig (Normalized) Sig (Original) apixaban 5 mg oral tablet (13 sources) Factor Xa Inhibitor Start: 12-27-2024 End: 03-29-2025 take 1 tablet by mouth twice daily Apixaban (Eliquis) 5 mg tablet Active 5 mg PO TWICE A DAY 60 2 March 29, 2025 4:35pm Start: 11-28-2024 End: 12-27-2024 Apixaban (Eliquis) 5 mg Tabl et Discontinued 10 mg PO TWICE A DAY 64 0 November 28, 2024 1:00am December 27, 2024 9:51am 10 mg twice a day for a total of 11 doses, then 5 mg twice a day thereafter Blood Pressure Monitor (8 sources) Start: 12-12-2022 Blood Pressure Monitor Active 0 .Route 1 December 12, 2022 1:00am As directed Start: 12-12-2022 Blood Pressure Monitor Active 0 .Route 1 December 12, 2022 12:00am As directed Blood Pressure Monitor kit (5 sources) Start: 12-12-2022 Blood Pressure Monitor kit Active 0 .Route 1 0 December 12, 2022 1:00am blood pressure As directed Start: 12-12-2022 Blood Pressure Monitor kit Active 0 .Route 1 December 12, 2022 1:00am As directed Completed/Discontinued Medications Medication Drug Class(es) Dates Sig (Normalized) Sig (Original) acetaminophen 325 mg / HYDROcodone bitartrate 5 mg oral tablet (20 sources) Opioid Agonist Start: 03-20-2021 End: 12-04-2022 Hydrocodone-Acetami nophen 1 TABLET tablet Discontinued 1 {tbl} PO EVERY 6 HOURS NEEDED as needed for Pain 12 3 0 March 20, 2021 December 04, 2022 10:51am Abscess of rectum Rectal abscess Start: 03-20-2021 End: 12-04-2022 Hydrocodone-Acetaminophen 5- 325 mg tablet Discontinued 1 {tbl} PO Q8H 15 5 0 March 20, 2021 December 04, 2022 10:51am Acute postoperative pain Other acute postprocedural pain Start: 03-20-2021 End: 12-04-2022 take 1 tablet by mouth every six hours as needed Hydrocodone-Acetaminophen Discontinued 1 TABLET PO EVERY 6 HOURS NEEDED 12 3 March 20, 2021 December 04, 2022 10:51am Start: 03-20-2021 End: 12-04-2022 take 1 tablet by mouth every eight hours Hydrocodone-Acetaminophen Discontinued 1 TABLET PO Q8H 15 5 March 20, 2021 December 04, 2022 10:51am amLODIPine 5 mg oral tablet (20 sources) Dihydropyridine Calcium Channel Torito Start: 11-19-2022 End: 12-10-2024 take 1 tablet by mouth at bedtime Amlodipine 5 mg tablet Discontinued 0 .ROUTE .COMPLEX 90 January 08, 2024 9:06am May 27, 2024 4:08pm TAKE 1 TABLET BY MOUTH AT BEDTIME amoxicillin 875 mg / clavulanate 125 mg oral tablet (14 sources) Penicillin-class Antibacterial Start: 11-19-2022 End: 12-04-2022 Amoxicillin-Pot Clavulanate 875-125 mg tablet Discontinued 1 {tbl} PO TWICE A DAY 20 November 19, 2022 1:00am December 04, 2022 10:50am Start: 11-19-2022 End: 12-04-2022 take 1 tablet by mouth twice daily Amoxicillin-Pot Clavulanate Discontinued 1 TABLET PO TWICE A DAY November 19, 2022 1:00am December 04, 2022 10:50am clindamycin 300 mg oral capsule (4 sources) Lincosamide Antibacterial Start: 03-23-2025 End: 06-01-2025 take 1 capsule by mouth every six hours Clindamycin Hcl (Cleocin Hcl) 300 mg capsule Discontinued 300 mg PO EVERY 6 HOURS 40 0 March 23, 2025 12:00am June 01, 2025 3:47pm doxycycline hyclate 100 mg oral capsule (13 sources) Tetracycline-class Drug Start: 12-04-2022 End: 12-12-2022 take 1 capsule by mouth twice daily Doxycycline Hyclate 100 mg Capsule Discontinued 100 mg PO TWICE A DAY December 04, 2022 1:00am December 12, 2022 9:56am escitalopram 10 mg oral tablet (20 sources) Serotonin Reuptake Inhibitor Start: 01-08-2023 End: 12-10-2024 take 1 tablet by mouth once daily Escitalopram Oxalate (Lexapro) 10 mg tablet Discontinued 10 mg PO DAILY 90 1 Nic 14th, 2023 9:13am May 27, 2024 4:08pm Start: 12-13-2022 End: 01-08-2023 take 3 tablets by mouth once daily Escitalopram Oxalate (Lexapro) 10 mg tablet Discontinued 30 mg PO DAILY December 13, 2022 2:17pm January 08, 2023 4:43pm Start: 12-12-2022 End: 12-13-2022 take 1 tablet by mouth once daily Escitalopram Oxalate (Lexapro) 10 mg tablet Discontinued 10 mg PO DAILY 30 December 12, 2022 1:00am December 13, 2022 2:17pm furosemide 20 mg oral tablet (20 sources) Loop Diuretic Start: 12-04-2022 End: 01-08-2023 take 1 tablet by mouth once daily Furosemide 20 mg tablet Discontinued 20 mg PO DAILY December 12, 2022 10:49am January 08, 2023 4:15pm hydroCHLOROthiazide 12.5 mg / lisinopril 20 mg oral tablet (20 sources) Thiazide Diuretic, Angiotensin Converting Enzyme Inhibitor Start: 01-08-2023 End: 03-04-2025 take 1 tablet by mouth once daily Lisinopril-Hydroc hlorothiazide 20-12.5 mg tablet Discontinued 0 .ROUTE .COMPLEX 90 October 31, 2023 9:13am May 27, 2024 4:08pm TAKE 1 TABLET BY MOUTH EVERY DAY Start: 01-08-2023 End: 01-31-2023 take 1 tablet by mouth once daily Lisinopril-Hydrochlorothiazide Active 1 TABLET PO DAILY January 31, 2023 1:10pm hydrocortisone 25 mg/ml topical cream (14 sources) Corticosteroid Start: 03-19-2021 End: 12-04-2022 Hydrocortisone (Procto-Med Hc) 2.5 % cream with perineal applicator Discontinued 1 NMA RC THREE TIMES A DAY as needed for hemorrhoids March 19, 2021 11:33pm December 04, 2022 10:54am hydrOXYzine hydrochloride 25 mg oral tablet (20 sources) Antihistamine Start: 03-25-2023 End: 05-27-2024 take 1 tablet by mouth every eight hours as needed Hydroxyzine Hcl 25 mg tablet Discontinued 25 mg PO Q8H as needed for itching March 25, 2023 12:00am May 27, 2024 3:57pm Start: 12-12-2022 End: 01-08-2023 take 1 tablet by mouth at bedtime Hydroxyzine Hcl 25 mg tablet Discontinued 25 mg PO AT BEDTIME 5 0 December 12, 2022 1:00am January 08, 2023 4:15pm ibuprofen 800 mg oral tablet (20 sources) Nonsteroidal Anti-inflammatory Drug Start: 12-04-2022 End: 11-28-2024 take 1 tablet by mouth twice daily as needed for pain Ibuprofen 800 mg tablet Discontinued 800 mg PO TWICE A DAY as needed for Pain December 12, 2022 9:56am November 28, 2024 12:42pm lisinopril 20 mg oral tablet (13 sources) Angiotensin Converting Enzyme Inhibitor Start: 12-12-2022 End: 01-08-2023 take 1 tablet by mouth once daily Lisinopril 20 mg tablet Discontinued 20 mg PO DAILY 30 December 12, 2022 1:00am January 08, 2023 4:41pm 24 hr nicotine 0.875 mg/hr transdermal system (20 sources) Cholinergic Nicotinic Agonist Start: 12-12-2022 Nicotine (Polacrilex) Active 4 MG BUCCAL Q4H 108 December 12, 2022 1:00am Start: 12-12-2022 End: 03-08-2023 apply 1 dose transdermal route every twenty-four hours Nicotine (Nicoderm Cq) 21 mg/24 hr patch 24 hour Discontinued 1 NMA TD DAILY 28 January 21, 2023 11:23am March 08, 2023 8:37am Start: 12-12-2022 End: 11-28-2023 apply 1 dose transdermal route once daily, then apply 1 dose transdermal route every twenty-four hours Nicotine 21 mg/24 hr patch 24 hour Discontinued 0 .ROUTE .COMPLEX 28 March 08, 2023 8:37am November 28, 2023 4:38pm APPLY 1 PATCH TRANSDERMALLY DAILY predniSONE 20 mg oral tablet (7 sources) Start: 03-25-2023 End: 11-28-2023 take 2 tablets by mouth once daily Prednisone 20 mg tablet Discontinued 40 mg PO DAILY 10 March 25, 2023 12:00am November 28, 2023 4:38pm Start: 03-25-2023 take 40 mg by mouth once daily Prednisone Active 40 MG PO DAILY March 25, 2023 12:00am sildenafil 25 mg oral tablet (7 sources) Phosphodiesterase 5 Inhibitor Start: 04-09-2023 End: 11-28-2023 Sildenafil (Viagra) 25 mg tablet Discontinued 25 mg PO DAILY as needed for sexual activity April 09, 2023 12:00am November 28, 2023 4:38pm administer 30 minutes to 4 hours before activity tadalafil 5 mg oral tablet (5 sources) Phosphodiesterase 5 Inhibitor Start: 11-28-2023 End: 05-27-2024 take 1 tablet by mouth every twenty-four hours Tadalafil (Cialis) 5 mg tablet Discontinued 5 mg PO DAILY as needed for sexual activity 10 November 28, 2023 1:00am May 27, 2024 3:57pm administer approximately 30min before sexual activity; do not use more than 1 dose per 24hrs tamsulosin hydrochloride 0.4 mg oral capsule (20 sources) alpha-Adrenergic Torito Start: 04-09-2023 End: 12-10-2024 take 1 capsule by mouth at bedtime Tamsulosin (Flomax) 0.4 mg capsule Discontinued 0.4 mg PO AT BEDTIME 90 1 May 07, 2024 2:21pm December 10, 2024 8:48am Problems Active Problems Problem Classification Problem Date Documented Da te Episodic/Chronic Administrative/social admission (20 sources) Counseling procedure with explicit context; Translations: [Tobacco abuse counseling] 12-12-2022 Episodic Allergic reactions (13 sources) H/O: non-drug allergy; Translations: [Allergy status to unspecified drugs, medicaments and biological substances status] 12-12-2022 Episodic Anal and rectal conditions (14 sources) Rectal abscess ; Translations: [Rectal abscess] 03-21-2021 Episodic Anxiety disorders (20 sources) Anxiety disorder, unspecified; Translations: [Anxiety state, unspecified] 12-12-2022 Chronic Blindness and vision defects (13 sources) Wears glasses; Translations: [Presence of spectacles and contact lenses] 12-12-2022 Episodic Chronic ulcer of skin (1 source) 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; Translations: [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] Onset: 12-02-2024 Chronic Essential hypertension (20 sources) Hypertensive disorder; Translations: [Essential (primary) hypertension] Onset: 12-10-2024 12-04-2022 Chronic Genitourinary symptoms and ill-defined conditions (6 sources) Post-void dribbling; Translations: [Post-void dribbling] Onset: 12-28-2024 03-25-2023 Chronic Hemorrhoids (14 sources) External hemorrhoids; Translations: [Residual hemorrhoidal skin tags] 03-21-2021 Episodic Mood disorders (20 sources) Moderately severe depression; Translations: [Moderately severe depression] 12-12-2022 Chronic Other aftercare (9 sources) Long-term current use of anticoagulant; Translations: [FPC (current) use of anticoagulants] 03-04-2025 Episodic Other aftercare (3 sources) Post-discharge follow-up; Translations: [Encounter for follow-up examination after completed treatment for conditions other than malignant neoplasm] 12-10-2024 Episodic Other circulatory disease (14 sources) Elevated blood pressure; Translations: [Elevated blood-pressure reading, without diagnosis of hypertension] 11-27-2022 Episodic Other connective tissue disease (6 sources) Other symptoms and signs involving the nervous system; Translations: [Other symptoms involving nervous and musculoskeletal systems] 12-12-2022 Episodic Other connective tissue disease (1 source) Pain in left lower leg; Translations: [Pain in left lower leg] Onset: 03-26-2025 Episodic Other diseases of veins and lymphatics (18 sources) Chronic peripheral venous hypertension; Translations: [Chronic venous hypertension (idiopathic) with ulcer and inflammation of left lower extremity] 12-04-2022 Chronic Other diseases of veins and lymphatics (20 sources) Chronic venous hypertension (idiopathic) with ulcer and inflammation of left lower extremity; Translations: [Chronic venous hypertension with ulcer and inflammation] 12-12-2022 Chronic Other diseases of veins and lymphatics (13 sources) Peripheral venous insufficiency; Translations: [Venous insufficiency (chronic) (peripheral)] 12-04-2022 Episodic Other ear and sense organ disorders (7 sources) Tinnitus, unspecified ear; Translations: [Tinnitus, unspecified] 01-22-2023 Episodic Other lower respiratory disease (2 sources) Cough; Translations: [Cough] 03-25-2023 Episodic Other lower respiratory disease (5 sources) Dyspnea; Translations: [Dyspnea, unspecified] 03-04-2025 Episodic Other lower respiratory disease (7 sources) Hypoxia; Translations: [Hypoxemia] 12-06-2024 Episodic Other male genital disorders (5 sources) Male erectile dysfunction, unspecified; Translations: [Impotence of organic origin] 03-25-2023 Chronic Other nervous system disorders (13 sources) H/O: migraine; Translations: [Personal history of other diseases of the nervous system and sense organs] 12-12-2022 Episodic Other nutritional; endocrine; and metabolic disorders (13 sources) H/O: endocrine disorder; Translations: [Personal history of other endocrine, nutritional and metabolic disease] 12-12-2022 Episodic Comment on above: CHILD Other screening for suspected conditions (not mental disorders or infectious disease) (6 sources) Encounter for screening for malignant neoplasm of colon; Translations: [Special screening for malignant neoplasms of colon] 12-12-2022 Episodic Other skin disorders (8 sources) Rash and other nonspecific skin eruption; Translations: [Rash and other nonspecific skin eruption] 12-12-2022 Episodic Phlebitis; thrombophlebitis and thromboembolism (11 sources) Deep venous thrombosis; Translations: [Acute embolism and thrombosis of unspecified deep veins of unspecified lower extremity] 12-03-2024 Episodic Pulmonary heart disease (15 sources) Saddle embolus of pulmonary artery; Translations: [Saddle embolus of pulmonary artery without acute cor pulmonale] Onset: 12-10-2024 12-06-2024 Chronic Residual codes; unclassified (13 sources) Obstructive sleep apnea (adult) (pediatric); Translations: [Obstructive sleep apnea (adult)(pediatric)] 01-08-2023 Chronic Residual codes; unclassified (3 sources) Obstructive sleep apnea syndrome; Translations: [Obstructive sleep apnea (adult) (pediatric)] 12-10-2024 Chronic Residual codes; unclassified (8 sources) History of clinical finding in subject; Translations: [Personal history of other specified conditions] 12-12-2022 Episodic Residual codes; unclassified (13 sources) Tobacco user; Translations: [Tobacco use] 12-12-2022 Episodic Residual codes; unclassified (6 sources) Immunization not carried out because of patient refusal; Translations: [Vaccination not carried out because of patient refusal] 12-12-2022 Episodic Residual codes; unclassified (18 sources) Tobacco use; Translations: [Tobacco use disorder] 12-18-2022 Episodic Residual codes; unclassified (20 sources) Other specified postprocedural states; Translations: [Personal history of surgery to other organs] 12-18-2022 Episodic Residual codes; unclassified (20 sources) Personal history of other specified conditions; Translations: [Personal history of other specified diseases] 12-18-2022 Episodic Residual codes; unclassified (3 sources) Influenza vaccination declined; Translations: [Immunization not carried out because of patient refusal] 12-10-2024 Episodic Respiratory failure; insufficiency; arrest (adult) (8 sources) Acute hypoxemic respiratory failure; Translations: [Acute respiratory failure with hypoxia] 11-26-2024 Episodic Screening and history of mental health and substance abuse codes (3 sources) Stopped smoking; Translations: [Personal history of nicotine dependence] 12-10-2024 Episodic Skin and subcutaneous tissue infections (20 sources) Cellulitis of lower limb; Translations: [Cellulitis of left lower limb] 11-27-2022 Episodic Substance-related disorders (19 sources) Nicotine dependence, unspecified, uncomplicated; Translations: [Tobacco use disorder] 12-12-2022 Chronic Unclassified (2 sources) In 2 weeks, call for an appointment Varicose veins of lower extremity (20 sources) Lipodermatosclerosis; Translations: [Varicose veins of unspecified lower extremity with inflammation] Onset: 05-27-2025 12-04-2022 Episodic Viral infection (5 sources) Viral infection, unspecified; Translations: [Unspecified viral infection] 01-22-2023 Episodic Past or Other Problems Problem Classification Problem Date Documented Date Episodic/Chronic Nonspecific chest pain (6 sources) Chest discomfort; Translations: [Other chest pain] Onset: 03-09-2025 03-04-2025 Episodic Other diseases of veins and lymphatics (19 sources) Venous insufficiency (chronic) (peripheral); Translations: [Venous (peripheral) insufficiency, unspecified] Onset: 12-02-2024 12-18-2022 Episodic Other lower respiratory disease (1 source) Hypoxemia; Translations: [Hypoxemia] Onset: 12-17-2024 Episodic Pulmonary heart disease (6 sources) H/O: pulmonary embolus; Translations: [Personal history of pulmonary embolism] Onset: 01-13-2025 03-04-2025 Episodic Results Test Name Value Interpretation Reference Range Facility MR/BMSArnold 06-01-2025 MR/BMS.BVJu[facility] [address] [place], [place] [address] OFFICE VISIT Date of Service: 06/01/25 MR#: [id number] Acct: [id number] Name: SUKI ADORNO Rep #: [id number] : 1960 Provider: TEX Jeffers Age/Sex: 64/M Location: [facility] Status: Signed Intake Vital Signs 11/26/24 03:34 04/02/25 15:14 06/01/25 15:46 Height 6 ft 6 ft Weight: 266 lb BP 112/66 Blood Pressure Location Lt brachial Position Sitting Respiration 16 Pulse 95 Pulse Source Monitor Temp 97.8 F Temp Source Temporal Pulse Oximetry (%) 95 Oxygen Delivery Method room air Intake Visit Reasons: 6 M FU Is patient in pain?: Yes Allergies Penicillins Allergy (Unknown, Verified 06/01/25 15:47) UNKNOWN Medications ???Medication ???Instructions ???Recorded ???Confirmed ???Type blood pressure monitor #1 ea 12/12/22 06/01/25 Rx amlodipine 5 mg tablet See Rx Instructions .Route 5 06/01/25 Rx .COMPLEX #90 tabs escitalopram oxalate 10 mg tablet 10 mg PO DAILY #90 tabs 12/10/24 06/01/25 Rx (Lexapro) tamsulosin 0.4 mg capsule (Flomax) 0.4 mg PO QHS #90 caps 12/10/24 06/01/25 Rx lisinopril 20 1 tab PO DAILY 03/04/25 06/01/25 H istory mg-hydrochlorothiazi de 12.5 mg tablet apixaban 5 mg tablet (Eliquis) 5 mg PO BID #60 tabs 03/29/2505/18 Rx Have you fallen in the past year?: Yes [facility] Medical History Acute saddle pulmonary embolism COVID Tinnitus Marijuana use Thrombosis Wears glasses Depression Alcohol use Arthritis Prostate disease Restless legs Migraine headache Smoker BiPAP (biphasic positive airway pressure) dependence Shortness of breath on exertion History of stress test Hypertension Hx of hypoglycemia Hx of migraines Hx of seasonal allergies Lipodermatosclerosis Venous stasis ulcer of ankle with fat layer exposed Chronic venous hypertension w/ulcer and inflammation involv left side Chronic venous insufficiency Seizures Surgical History History of thrombectomy History of incision and drainage H/O foot surgery History of hemorrhoidectomy Hx of hand surgery History of nasal surgery Family History Father Angina at rest Anxiety Diabetes Myocardial infarction Heart disease Hypertension Hyperlipidemia Respiratory disease Cancer esophageal Mother Cancer lung Depression Hormone disorder Seizures Osteoporosis Brother Myocardial infarction Hyperlipidemia Social History household members: significant other housing: house current occupational status: employed current occupation: [employer] sexually active: Yes Smoking Status: Former smoker quit date: 11/26/24 Electronic Cigarette Use: not used alcohol intake: current alcohol intake frequency: holidays/special occasions only substance use type: former substance user Date of last use: marijuana what type of physical activity do you participate in: walking and additional details: lifting frequency: 5-6 times per week seatbelt use: always do you feel safe at home: Yes HPI HPI HPI: SUKI ADORNO, is a 64 M who presents to the office today for follow-up of his venous insufficiency with chronic stasis skin changes/recurrent venous ulcerations. Recall that he is s/p recent percutaneous mechanical thrombectomy of the bilateral pulmonary arteries on 11/26/24 secondary to submassive PE with associated right heart strain. He also had lower extremity venous duplex which showed R CFV and FV with acute on chronic DVT, POPV and gastrocV with acute DVT, GSV, ASV, and thigh varicosities with acute SVT; no SVT/DVT in the LLE. At last OV, we discussed that would have to wait at least 6 months prior to pursuing any superficial venous interventions to assist with his chronic venous ulcerations. He has been taking Eliquis as prescribed without adverse effects. He has recently completed an updated venous reflux study which demonstrated resolved prior DVT, R CFV, FV, GSV, ASV, SSV, and calf dandy operator reflux, and L CFV, FV, GSV, thigh dandy operator, and SSV reflux. He reports that he does still have some SOB with exertion, continuing to notice slight improvements with time. His most bothersome symptom at present is significant heaviness/fatigue in his legs which is worst at the end of the day; he also has associated cramping (at rest and activity) worst at the end of the day and at night when trying to sleep. 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 Normal [facility] Venous Duplex US - Truong Extre [facility] 05-24-2025 Venous Duplex US - Truong Extrem [facility] [address] [place] [address] Venous Duplex US - Truong Extrem 05/24/25 0810 MR#: [id number] Acct: [id number] Name: SUKI ADORNO Rep #: [id number] : 1960 64 From: Shashank Millan MD Attending Dr: TEX Jeffers Status: REG CLI Ordering Dr: Madyson Cardoso Date: 05/24/25 Location: [facility] Sex: M C Admitted: Reason For Study Reason For Study: BLE Pain RIGHT LEFT CFV is compressible, phasic, and INCOMPETENT for CFV is compressible, phasic, and INCOMPETENT for greater than 1.0 second. greater than 1.0 second. FV is compressible, phasic, and INCOMPETENT for FV is compressible, phasic, and INCOMPETENT for greater than 1.0 second. greater than 1.0 second. POP V is compressible, spontaneous, phasic, competent POP V is compressible, spontaneous, phasic, competent and demonstrates normal augmentation. and demonstrates normal augmentation. T/P Trunk is compressible. T/P Trunk is compressible. PTV is compressible. PTV is compressible. RT PerV is compressible. LT PerV is compressible. SFJ is INCOMPETENT and measures 0.82 cm. SFJ is competent and measures 0.92 cm. GSV proximal thigh measures 0.48 x 0.52 cm. GSV proximal thigh measures 0.58 x 0.52 cm. GSV at knee measures 0.48 x 0.56 cm. GSV at knee measures 0.90 x 1.02 cm. GSV INCOMPETENT throughout for greater than 0.5 GSV INCOMPETENT throughout for greater than 0.5 seconds. seconds. ASV proximal thigh is INCOMPETENT for greater than Perforating Vessel mid thigh is INCOMPETENT for 0.5 seconds and measures 1.53 x 1.80 cm. greater than 0.5 seconds and measures 0.79 cm. ASV mid thigh is INCOMPETENT for greater than 0.5 SSV mid calf is INCOMPETENT for greater than 0.5 seconds and measures 0.62 x 0.70 cm. seconds and measures 0.58 cm. SSV at junction is INCOMPETENT for greater than 0.5 seconds and measures 0.33 cm. SSV mid calf is INCOMPETENT for greater than 0.5 seconds and measures 0.42 x 0.49 cm. Perforating Vessel proximal calf is INCOMPETENT for greater than 0.5 seconds and measures 0.25 cm. Perforating Vessel distal calf is INCOMPETENT for greater than 0.5 seconds and measures 0.34 cm. Procedure Exam performed in department. This is a venous duplex using B-mode, color flow and spectral Doppler. The exam was diagnostic. Patient was scanned in reverse Trendelenburg position during reflux assessment. VL/Venous Duplex US - Truong Extrem Interpretation Summary Deep veins of the bilateral lower extremities are patent and compressible segmentally. There is no evidence of bilateral lower extremity deep vein thrombosis. The bilateral great saphenous veins appear patent and compressible segmentally. Positive for reflux in the right common femoral vein, femoral vein, saphenofemoral junction, great saphenous vein throughout, accessory saphenous veins in thigh, small saphenous vein, and dandy operator veins in the calf. Positive for reflux in the left common femoral vein, femoral vein, great saphenous vein throughout, dandy operator vein in thigh, and small saphenous vein. Ordering Physician: Madyson Cardoso Referring Physician: Kelsey Jacobs Performed By: Domneic Suggs, RVT 05/24/25 1256 Date Shashank Millan MD CC: TEX Jeffers; Dr. Kelsey Jacobs MD Date Dictated: 05/24/25809 Date Transcribed: 05/24/251255 Cadd Instructor: Signed Normal [facility] Venous duplex ultrasound rep ortOrdered By: Shashank Millan on 05-24-2025 US Vein [facility] [address] [place] [address] Venous Duplex US - Truong Extrem 05/24/25809 MR#: [id number] Acct: [id number] Name: SUKI ADORNO Rep #:[id number] : 1960 64 From: Shashank Yoder Attending Dr: TEX Jeffers Stat us: REG CLI Ordering Dr: Madyson Cardoso Date: Location: CVS Sex: M C Admitted: Reason For Study Reason For Study: BLE Pain RIGHT LEFT CFV is compressible, phasic, and INCOMPETENT for CFV is compressible, phasic, and INCOMPETENT for greater than 1.0 second. greater than 1.0 second. FV is compressible, phasic, and INCOMPETENT for FV is compressible, phasic, and INCOMPETENT for greater than 1.0 second. greater than 1.0 second. POP V is compressible, spontaneous, phasic, competent POP V is compressible, spontaneous, phasic, competent and demonstrates normal augmentation. and demonstrates normal augmentation. T/P Trunk is compressible. T/P Trunk is compressible. PTV is compressible. PTV is compressible. RT PerV is compressible. LT PerV is compressible. SFJ is INCOMPETENT and measures 0.82 cm. SFJ is competent and measures 0.92 cm. GSV proximal thigh measures 0.48 x 0.52 cm. GSV proximal thigh measures 0.58 x 0.52 cm. GSV at knee measures 0.48 x 0.56 cm. GSV at knee measures 0.90 x 1.02 cm. GSV INCOMPETENT throughout for greater than 0.5 GSV INCOMPETENT throughout for greater than 0.5 seconds. seconds. ASV proximal thigh is INCOMPETENT for greater than Perforating Vessel mid thigh is INCOMPETENT for 0.5 seconds and measures 1.53 x 1.80 cm. greater than 0.5 seconds and measures 0.79 cm. ASV mid thigh is INCOMPETENT for greater than 0.5 SSV mid calf is INCOMPETENT for greater than 0.5 seconds and measures 0.62 x 0.70 cm. seconds and measures 0.58 cm. SSV at junction is INCOMPETENT for greater than 0.5 seconds and measures 0.33 cm. SSV mid calf is INCOMPETENT for greater than 0.5 seconds and measures 0.42 x 0.49 cm. Perforating Vessel proximal calf is INCOMPETENT for greater than 0.5 seconds and measures 0.25 cm. Perforating Vessel distal calf is INCOMPETENT for greater than 0.5 seconds and measures 0.34 cm. Procedure Exam performed in department. This is a venous duplex using B-mode, color flow and spectral Doppler. The exam was diagnostic. Patient was scanned in reverse Trendelenburg position during reflux assessment. VL/Venous Duplex US - Truong Extrem Interpretation Summary Deep veins of the bilateral lower extremities are patent and compressible segmentally. There is no evidence of bilateral lower extremity deep vein thrombosis. The bilateral great saphenous veins appearpatent and compressible segmentally. Positive for reflux in the right common femoral vein, femoral vein, saphenofemoral junction, great saphenous vein throughout, accessory saphenous veins in thigh, small saphenous vein, and dandy operator veins in the calf. Positive for reflux in the left common femoral vein, femoral vein, great saphenous vein throughout, dandy operator vein in thigh, and small saphenous vein. Ordering Physician: Madyson Cardoso Referring Physician: Kelsey Jacobs Performed By: Domenic Suggs, RVT 05/24/25 1256 Date _ Shashank Millan MD CC: TEX Jeffers; Dr. Kelsey Jacobs MD ~ Date Dictated: 05/24/25 0810 Date Transcribed: 05/24/251255 Cadd Instructor: Signed [facility] Work Phone: Internal Medicine Office Vis ito 04-02-2025 Internal Medicine Office Visit [facility] [place] [address] [place] [address] OFFICE VISIT Date of Service: 04/02/25 MR#: [id number] Acct: [id number] Name: SUKI ADORNO Rep #: [id number] : 1960 Provider: TEX Ocampo Age/Sex: 64/M Location[place] [facility] Status: Signed Intake Vital Signs 03/23/25 17:53 04/02/25 15:14 Height 6 ft 6 ft Weight: 267 lb 6 oz BMI 36.2 BP 108/78 Blood Pressure Location Lt brachial Position Sitting Respiration 16 Pulse 61 Pulse Source Monitor Temp 97.6 F L Temp Source Temporal Pulse Oximetry (%) 95 Oxygen Delivery Method room air Intake Visit Reasons: [facility] FOLLOW UP Chief Complaint: hospital follow up Department Manager Required: No Accompanied by: Self Is patient in pain?: Yes (feet ) Pain scale (1-10): 6 Allergies Penicillins Allergy (Unknown, Verified 04/02/25 15:12) UNKNOWN Medications ???Medication ???Instructions ???Recorded ???Confirmed ???Type blood pressure monitor #1 ea 12/12/22 04/02/25 Rx amlodipine 5 mg tablet See Rx Instructions .Route 5 04/02/25 Rx .COMPLEX #90 tabs escitalopram oxalate 10 mg tablet 10 mg PO DAILY #90 tabs 12/10/24 04/02/25 Rx (Lexapro) tamsulosin 0.4 mg capsule (Flomax) 0.4 mg PO QHS #90 caps 12/10/24 04/02/25 Rx lisinopril 20 1 tab PO DAILY 03/04/25 04/02/25 H istory mg-hydrochlorothiazi de 12.5 mg tablet clindamycin HCl 300 mg capsule 300 mg PO Q6H #40 CAPSULES 5 04/02/25 Rx (Cleocin HCl) apixaban 5 mg tablet (Eliquis) 5 mg PO BID #60 tabs 03/29/2503/18 Rx Have you fallen in the past year?: No Nurse's Note: follow up [facility] Hips and feet painful PFSH Medical History Acute saddle pulmonary embolism COVID Tinnitus Marijuana use Thrombosis Wears glasses Depression Alcohol use Arthritis Prostate disease Restless legs Migraine headache Smoker BiPAP (biphasic positive airway pressure) dependence Shortness of breath on exertion History of stress test Hypertension Hx of hypoglycemia Hx of migraines Hx of seasonal allergies Lipodermatosclerosis Venous stasis ulcer of ankle with fat layer exposed Chronic venous hypertension w/ulcer and inflammation involv left side Chronic venous insufficiency Seizures Surgical History History of thrombectomy History of incision and drainage H/O foot surgery History of hemorrhoidectomy Hx of hand surgery History of nasal surgery Family History Father Angina at rest Anxiety Diabetes Myocardial infarction Heart disease Hypertension Hyperlipidemia Respiratory disease Cancer esophageal Mother Cancer lung Depression Hormone disorder Seizures Osteoporosis Brother Myocardial infarction Hyperlipidemia Social History household members: significant other housing: house current occupational status: employed current occupation: [employer] sexually active: Yes Smoking Status: Former smoker quit date: 11/26/24 Electronic Cigarette Use: not used alcohol intake: current alcohol intake frequency: holidays/special occasions only substance use type: former substance user Date of last use: marijuana what type of physical activity do you participate in: walking and additional details: lifting frequency: 5-6 times per week seatbelt use: always do you feel safe at home: Yes HPI HPI Chief Complaint: hospital follow up Details: SUKI ADORNO, is a 64 M who presents to the office today for hospital f/u for cellulitis. He states that he was having pains in the calf and it felt deep so he went to the ER. He states that it was very red and painful. He was found to have cellulitis in the area and was started on antibiotics. He states that he has been taking the antibiotic but states that he has only been taking this twice daily as the way his schedule is it has just been hard to get the third dose in in terms of how he eats. Patient states that he has shown pretty much complete resolution of the redness and the discomfort. He has no concerns or complaints at this time. ROS Const Constitutional: No body ache, excessive sweating, fatigue, fever(s), frequent falls, headache(s), snoring, weakness, weight change, sleep problems or change in appetite Eyes Eyes: No blurry vision, change in vision, eye pain or Light sensitivity ENT ENT: No abnormal hearing, ear or mastoid pain, tinnitus, nasal congestion, headache(s), neck pain or sore throat Resp Respiratory: No cough, shortness of breath, snoring or wheezing Cardio Cardiology: No chest pain at rest, chest pain with exertion, excessive sweating, shortness of breath, dyspne (more content not included)... Normal [facility] Absolute lymphocyte countOrd ered By: Mateo Hoffman on 03-23-2025 Lymphocytes Auto (Unsp spec) [#/Vol] 1.85 10*3/uL 0.83-4.51 [facility] Absolute neutrophil countOrd ered By: Mateo Hoffman on 03-23-2025 Neutrophils (Bld) [#/Vol] 5.3 10*3/uL 2.0-7.7 [facility] Anion gap in Serum or Plasma Ordered By: Mateo Hoffman on 03-23-2025 Anion gap [Moles/Vol] 11 mmol/L 5-15 [facility] Automated lymphocyte count a s percentage of total leukocytesOrdered By: Mateo Hoffman on 03-23-2025 Lymphocytes/100 WBC Auto (Unsp spec) 22.8 % 19-41 [facility] BUN/creatinine ratioOrdered By: Mateo Hoffman on 03-23-2025 Urea nitrogen/Creatinine [Mass ratio] 26.5 mg/mg High 10-20 [facility] Basic Metabolic Profile (BMP )on 03-23-2025 BUN/CRE 26.5 RATIO High 10-20 [facility] Comment on above: Performed By: #### L 100.0100, L500.2500 ####[facility] [address] [place], [address] Calcium [Mass/Vol] 8.7 mg/dL Normal 7.6-11.0 [facility] Comment on above: Performed By: #### L 100.0100, L500.2500 ####[facility] [address] [place], [address] Chloride [Moles/Vol] 102 mmol/L Normal 98-108 [facility] Comment on above: Performed By: #### L 100.0100, L500.2500 ####[facility] [address] [place], [address] CO2 [Moles/Vol] 24.6 mmol/L Normal 21.0-32.0 [facility] Comment on above: Performed By: #### L 100.0100, L500.2500 ####[facility] [address] [place], [address] Creatinine [Mass/Vol] 1.17 mg/dL Normal 0.70-1.20 [facility] Comment on above: Performed By: #### L 100.0100, L500.2500 ####[facility] [address] [place], [address] ECRCL 89.43 ml/min Normal 50-250 [facility] Comment on above: Performed By: #### L 100.0100, L500.2500 ####[facility] [address] [place], [address] GAP 11 Normal 5-15 [facility] Comment on above: Performed By: #### L 100.0100, L500.2500 ####[facility] [address] [place], [address] GFR/1.73 sq M.predicted among non-blacks MDRD (S/P/Bld) [Vol rate/Area] 70 mL/min/{1.73_m2} Normal >60 [facility] Comment on above: Result Comment: mL/m in/1.73m2 CKD-EPI Creatinine Equation (2020) Performed By: #### L 100.0100, L500.2500 ####[facility] [address] [place], [address] Glucose [Mass/Vol] 105 mg/dL High 70-99 [facility] Comment on above: Performed By: #### L 100.0100, L500.2500 ####[facility] [address] [place], [address] Potassium [Moles/Vol] 3.8 mmol/L Normal 3.3-5.1 [facility] Comment on above: Performed By: #### L 100.0100, L500.2500 ####[facility] [address] [place], [address] Sodium [Moles/Vol] 137 mmol/L Normal 133-145 [facility] Comment on above: Performed By: #### L 100.0100, L500.2500 ####[facility] [address] [place], [address] Urea nitrogen [Mass/Vol] 31 mg/dL High 4-19 [facility] Comment on above: Performed By: #### L 100.0100, L500.2500 ####[facility] [address] [place], [address] Basophil percentageOrdered B y: Mateo Hoffman on 03-23-2025 Basophils/100 WBC (Bld) 0.6 % 0-1 [facility] CBC W/Diff, Automatedon Absolute Lymph 1.85 X10 3/uL Normal 0.83-4.51 [facility] Comment on above: Performed By: #### L 100.0100, L500.2500 ####[facility] [address] [place], [address] Absolute Neut 5.3 X10 3/uL Normal 2.0-7.7 [facility] Comment on above: Performed By: #### L 100.0100, L500.2500 ####[facility] [address] [place], [address] Basophils/100 WBC (Bld) 0.6 % Normal 0-1 [facility] Comment on above: Performed By: #### L 100.0100, L500.2500 ####[facility] [address] [place], [address] Eosinophils/100 WBC (Bld) 2.8 % Normal 0-5 [facility] Comment on above: Performed By: #### L 100.0100, L500.2500 ####[facility] [address] [place], [address] Erythrocyte distribution width (RBC) [Ratio] 12.9 % Normal 11.6-14.6 [facility] Comment on above: Performed By: #### L 100.0100, L500.2500 ####[facility] [address] [place], [address] Hematocrit (Bld) [Volume fraction] 42.2 % Normal 40-54 [facility] Comment on above: Performed By: #### L 100.0100, L500.2500 ####[facility] [address] [place], [address] Hemoglobin (Bld) [Mass/Vol] 14.6 g/dL Normal 13.0-16.5 [facility] Comment on above: Performed By: #### L 100.0100, L500.2500 ####[facility] [address] [place], [address] IG% 0.500 Normal 0.0-0.9 [facility] Comment on above: Result Comment: IG% - Immature Granulocytes (promyelocytes, myelocytes and metamyelocytes) > 1% indicates that a LEFT SHIFT is Present. Performed By: #### L 100.0100, L500.2500 ####[facility] [address] [place], [address] Lymphocytes/100 WBC (Bld) 22.8 % Normal 19-41 [facility] Comment on above: Performed By: #### L 100.0100, L500.2500 ####[facility] [address] [place], [address] MCH (RBC) [Entitic mass] 30.2 pg Normal 27.0-32.0 [facility] Comment on above: Performed By: #### L 100.0100, L500.2500 ####[facility] [address] [place], [address] MCHC (RBC) [Mass/Vol] 34.6 g/dL Normal 32-36 [facility] Comment on above: Performed By: #### L 100.0100, L500.2500 ####[facility] [address] [place], [address] MCV (RBC) [Entitic vol] 87.2 fL Normal 80-94 [facility] Comment on above: Performed By: #### L 100.0100, L500.2500 ####[facility] [address] [place], [address] Monocytes/100 WBC (Bld) 7.5 % Normal 0-10 [facility] Comment on above: Performed By: #### L 100.0100, L500.2500 ####[facility] [address] [place], [address] Neutrophils/100 WBC (Bld) 65.8 % Normal 47-70 [facility] Comment on above: Performed By: #### L 100.0100, L500.2500 ####[facility] [address] [place], [address] Nucleated RBC (Bld) [#/Vol] 0 10*3/uL Normal 0-5 [facility] Comment on above: Performed By: #### L 100.0100, L500.2500 ####[facility] [address] [place], [address] Platelet mean volume (Bld) [Entitic vol] 10.1 fL Normal 6.2-12.0 [facility] Comment on above: Performed By: #### L 100.0100, L500.2500 ####[facility] [address] [place], [address] Platelets (Bld) [#/Vol] 232 10*3/uL Normal 150-450 [facility] Comment on above: Performed By: #### L 100.0100, L500.2500 ####[facility] [address] [place], [address] RBC (Bld) [#/Vol] 4.84 10*6/uL Normal 4.6-6.2 [facility] Comment on above: Performed By: #### L 100.0100, L500.2500 ####[facility] [address] [place], [address] RDW SD 41.1 fl Normal 35.1-43.9 [facility] Comment on above: Performed By: #### L 100.0100, L500.2500 ####[facility] [address] [place], [address] WBC (Bld) [#/Vol] 8.1 10*3/uL Normal 4.4-11.0 [facility] Comment on above: Performed By: #### L 100.0100, L500.2500 ####[facility] [address] [place], [address] Carbon dioxide, total [Moles /volume] in Central venous bloodOrdered By: Mateo Hoffman on 03-23-2025 CO2 [Moles/Vol] 24.6 mmol/L 21.0-32.0 [facility] Chloride assayOrdered By: Cecil Hoffman on 03-23-2025 Chloride [Moles/Vol] 102 mmol/L 98-108 [facility] Emergency Department Summary on 03-23-2025 Emergency Department Summary [facility] Medical Records Department [address] [place] [address] Emergency Department Summary 03/23/25 MR#: [id number] Acct: [id number] Name: SUKI ADORNO Rep #: [id number] : 1960 64 From: Mateo Hoffman MD PCP: Dr. Kelsey Jacobs MD Status:REG ER Location: ED HPI History of Present Illness Chief Complaint: Cellulitis Informant: patient and spouse/S.O. Onset/Context/Timing Onset: Days Context: Gradual Onset Timing: Continuous Current Severity: Moderate Maximum Severity: Moderate Narrative Narrative: 64-year-old male history of DVT and pulmonary emboli on Eliquis. States he is having left calf pain, redness and fever as high as 103 last 3 days. Denies vomiting or diarrhea. Prior similar symptoms: No Recent Illness/Hospitalizat ion: No PFSH PFSH Medical History Acute saddle pulmonary embolism COVID Tinnitus Marijuana use Thrombosis Wears glasses Depression Alcohol use Arthritis Prostate disease Restless legs Migraine headache Smoker BiPAP (biphasic positive airway pressure) dependence Shortness of breath on exertion History of stress test Hypertension Hx of hypoglycemia Hx of migraines Hx of seasonal allergies Lipodermatosclerosis Venous stasis ulcer of ankle with fat layer exposed Chronic venous hypertension w/ulcer and inflammation involv left side Chronic venous insufficiency Seizures Home Medications ???Medication ???Instructions ???Recorded ???Last Taken ???Type blood pressure monitor #1 ea 12/12/22 Unknown Rx amlodipine 5 mg tablet See Rx Instructions .Route 12/10/ 5 03/03/25 Rx .COMPLEX #90 tabs escitalopram oxalate 10 mg tablet 10 mg PO DAILY #90 tabs 12/10/24 03/04/25 Rx (Lexapro) tamsulosin 0.4 mg capsule (Flomax) 0.4 mg PO QHS #90 caps 12/10/24 03/03/25 Rx apixaban 5 mg tablet (Eliquis) 5 mg PO BID #60 tabs 12/27/2402/16 Rx lisinopril 20 1 tab PO DAILY 03/04/25 03/04/25 H istory mg-hydrochlorothiazi de 12.5 mg tablet clindamycin HCl 300 mg capsule 300 mg PO Q6H #40 CAPSULES 5 Unknown Rx (Cleocin HCl) Allergy/AdvReac Type Severity Reaction Status Date / Time Penicillins Allergy Unknown UNKNOWN Verified 03/23/25 17:53 Family History Father Angina at rest Anxiety Diabetes Myocardial infarction Heart disease Hypertension Hyperlipidemia Respiratory disease Cancer esophageal Mother Cancer lung Depression Hormone disorder Seizures Osteoporosis Brother Myocardial infarction Hyperlipidemia Surgical History History of thrombectomy History of incision and drainage H/O foot surgery History of hemorrhoidectomy Hx of hand surgery History of nasal surgery Social History household members: significant other housing: house current occupational status: employed current occupation: [employer] sexually active: Yes Smoking Status: Former smoker quit date: 11/26/24 Electronic Cigarette Use: not used alcohol intake: current alcohol intake frequency: holidays/special occasions only substance use type: former substance user Date of last use: marijuana what type of physical activity do you participate in: walking and additional details: lifting frequency: 5-6 times per week seatbelt use: always do you feel safe at home: Yes ROS ROS ED ROS Narrative Fever. Left calf pain, redness and swelling. Constitutional Constitutional ED: Reports chills and fever(s) Eyes Eyes: Denies blurry vision ENT ENT ED: Denies ear pain Cardiovascular Cardiovascular: Denies chest pain Respiratory/Chest Respiratory/Chest: Denies cough or dyspnea Gastrointestinal Gastrointestinal: Denies abdominal pain Genitourinary Genitourinary ED: Denies dysuria or hematuria Musculoskeletal Musculoskeletal: Denies arthralgias or back pain Integumentary Reports rash; Denies abscess or Abrasions Neurologic Neurologic: Denies headache(s) Psychiatric Psychiatric: Denies anxiety Endocrine Endocrinology: Denies cold intolerance Hematologic/Lymphati c Hematologic/Lymphati c: Reports none Allergic/Immunologic Allergic/Immunologic ED: Denies mouth swelling, tongue swelling or urticaria EXAM Physical Exam Narrative Exam Narrative: 64-year-old male no acute distress. Vital signs stable afebrile. H EENT exam pupils round react light. Mytrex members. Neck nontender no JVD. Lungs clear to auscultation bilaterally. Heart regular rhythm rate about 65 no murmur. Chest wall ribs nontender. Abdomen soft nontender. Moving all 4 extremities. Neurovascular intact. Left lower leg swollen. Calf redness over basically the entire posterior (more content not included)... Normal [facility] Eosinophil percentageOrdered By: Mateo Hoffman on 03-23-2025 Eosinophils/100 WBC (Bld) 2.8 % 0-5 [facility] Erythrocyte distribution wid th (RBC) [Ratio]Ordered By: Mateo Hoffman on 03-23-2025 Erythrocyte distribution width (RBC) [Entitic vol] 41.1 fL 35.1-43.9 [facility] Erythrocyte distribution wid th ratioOrdered By: Mateo Hoffman on 03-23-2025 Erythrocyte distribution width (RBC) [Ratio] 12.9 % 11.6-14.6 [facility] Erythrocyte distribution wid th standard deviationOrdered By: Matoe Hoffman on 03-23-2025 Erythrocyte distribution width (RBC) [Ratio] 41.1 fl 35.1-43.9 [facility] Estimation of creatinine ronaldo aranceOrdered By: Mateo Hoffman on 03-23-2025 Estimated Creatinine Clearance Calc 89.43 ml/min 50-250 [facility] GFR/1.73 sq M.predicted scott g non-blacks MDRD (S/P/Bld) [Vol rate/Area]Ordered By: Mateo Hoffman on 03-23-2025 Estimated GFR (MDRD) Non-Af Amer 70 >60 [facility] Comment on above: mL/min/1.73m2 CKD-EP I Creatinine Equation (2020) Glomerular filtration rate ( GFR) estimation/1.73 sq m using serum, plasma, or whole bOrdered By: Mateo Hoffman on 03-23-2025 GFR/1.73 sq M.predicted among non-blacks MDRD (S/P/Bld) [Vol rate/Area] 70 mL/min/{1.73_m2} >60 [facility] Comment on above: mL/min/1.73m2 CKD-EP I Creatinine Equation (2020) Hematocrit Auto (Bld) [Volum e fraction]Ordered By: Mateo Hoffman on 03-23-2025 Hematocrit (Bld) [Volume fraction] 42.2 % 40-54 [facility] Hemoglobin measurementOrdere d By: Mateo Hoffman on 03-23-2025 Hemoglobin (Bld) [Mass/Vol] 14.6 g/dL 13.0-16.5 [facility] Immature granulocytes/100 WB C Auto (Bld)Ordered By: Mateo Hoffman on 03-23-2025 Immature granulocytes/100 WBC (Bld) 0.500 % 0.0-0.9 [facility] Comment on above: IG% - Immature Granu locytes (promyelocytes, myelocytes and metamyelocytes) > 1% indicates that a LEFT SHIFT is Present. Lymphocytes Auto (Unsp spec) [#/Vol]Ordered By: Mateo Hoffman on 03-23-2025 Lymphocytes (Bld) [#/Vol] 1.85 10*3/uL 0.83-4.51 [facility] Lymphocytes/100 WBC Auto (Un sp spec)Ordered By: Mateo Hoffman on 03-23-2025 Lymphocytes/100 WBC (Bld) 22.8 % 19-41 [facility] MCV (mean corpuscular volume ) determinationOrdered By: Mateo Hoffman on 03-23-2025 MCV (RBC) [Entitic vol] 87.2 fL 80-94 [facility] Mean corpuscular hemoglobin (MCH) determinationOrdered By: Mateo Hoffman on 03-23-2025 MCH (RBC) [Entitic mass] 30.2 pg 27.0-32.0 [facility] Mean corpuscular hemoglobin concentration (MCHC) determinationOrdered By: Mateo Hoffman on 03-23-2025 MCHC (RBC) [Mass/Vol] 34.6 g/dL 32-36 [facility] Mean platelet volume determi nationOrdered By: Mateo Hoffman on 03-23-2025 Platelet mean volume (Bld) [Entitic vol] 10.1 fL 6.2-12.0 [facility] Monocyte percentageOrdered B y: Mateo Hoffman on 03-23-2025 Monocytes/100 WBC (Bld) 7.5 % 0-10 [facility] Neutrophil percentageOrdered By: Mateo Hoffman on 03-23-2025 Neutrophils/100 WBC (Bld) 65.8 % 47-70 [facility] Nucleated red blood cell per centageOrdered By: Mateo Hoffman on 03-23-2025 Nucleated RBC/100 WBC (Bld) [Ratio] 0 % 0-5 [facility] Platelet countOrdered By: Cecil Hoffman on 03-23-2025 Platelets (Bld) [#/Vol] 232 10*3/uL 150-450 [facility] Potassium (Unsp spec) [Mass/ Vol]Ordered By: Mateo Hoffman on 03-23-2025 Potassium [Moles/Vol] 3.8 mmol/L 3.3-5.1 [facility] Potassium measurement (mass/ volume)Ordered By: Mateo Hoffman on 03-23-2025 Potassium (Unsp spec) [Mass/Vol] 3.8 mmol/L 3.3-5.1 [facility] RBC Auto (Bld) [#/Vol]Ordere d By: Mateo Hoffman on 03-23-2025 RBC (Bld) [#/Vol] 4.84 10*6/uL 4.6-6.2 [facility] Serum creatinine measurement (mass/volume)Ordered By: Mateo Hoffman on 03-23-2025 Creatinine [Mass/Vol] 1.17 mg/dL 0.70-1.20 [facility] Serum glucose measurement (m ass/volume)Ordered By: Mateo Hoffman on 03-23-2025 Glucose [Mass/Vol] 105 mg/dL High 70-99 [facility] Serum or plasma calcium bola urement (mass/volume)Ordered By: Mateo Hoffman on 03-23-2025 Calcium [Mass/Vol] 8.7 mg/dL 7.6-11.0 [facility] Serum or plasma urea nitroge n measurement (mass/volume)Ordered By: Mateo Hoffman on 03-23-2025 Urea nitrogen [Mass/Vol] 31 mg/dL High 4-19 [facility] Sodium levelOrdered By: Mateo Hoffman on 03-23-2025 Sodium [Moles/Vol] 137 mmol/L 133-145 [facility] White blood cell (WBC) count Ordered By: Mateo Hoffman on 03-23-2025 WBC (Bld) [#/Vol] 8.1 10*3/uL 4.4-11.0 [facility] 12 Lead EKGon 03-04-2025 12 Lead EKG [facility] [address] [place] [address] 12 Lead EKG 03/04/25 0939 MR#: [id number] Acct: [id number] Name: SUKI ADORNO Rep #: [id number] : 1960 64 From: Suresh Quintana MD Attending Dr: Status: DEP ER Ordering Dr: Blake Andrea MD Date: 03/04/25 Location: ED Sex: M C Admitted: Test Reason : Blood Pressure : */* mmHG Vent. Rate : 59 BPM Atrial Rate : 59 BPM P-R Int : 170 ms QRS Dur : 78 ms QT Int : 420 ms P-R-T Axes : -21 7 44 degrees QTcB Int : 415 ms Sinus bradycardia Otherwise normal ECG Confirmed by Suresh Quintana ([id number]), technical writer and editor ÁLVARO OROZCO ([id number]) on 03/05/2025 12:45:33 PM Referred By: HUONG Confirmed By: Suresh Quintana 03/05/25 1245 Date Suresh Quintana MD CC: Dr. Kelsey Jacobs MD; Dr. Blake Andrea MD Signed Normal [facility] Absolute lymphocyte countOrd ered By: Blake Andrea on 03-04-2025 Lymphocytes Auto (Unsp spec) [#/Vol] 2.13 10*3/uL 0.83-4.51 [facility] Absolute neutrophil countOrd ered By: Blake Andrea on 03-04-2025 Neutrophils (Bld) [#/Vol] 3.3 10*3/uL 2.0-7.7 [facility] Anion gap in Serum or Plasma Ordered By: Blake Andrea on 03-04-2025 Anion gap [Moles/Vol] 11 mmol/L 5-15 [facility] Automated lymphocyte count a s percentage of total leukocytesOrdered By: Blake Andrea on 03-04-2025 Lymphocytes/100 WBC Auto (Unsp spec) 34.1 % 19-41 [facility] BUN/creatinine ratioOrdered By: Blake Andrea on 03-04-2025 Urea nitrogen/Creatinine [Mass ratio] 23.6 mg/mg High 10-20 [facility] Basophil percentageOrdered B y: Blake Andrea on 03-04-2025 Basophils/100 WBC (Bld) 0.8 % 0-1 [facility] Bilirubin, totalOrdered By: Blake Andrea on 03-04-2025 Bilirubin [Mass/Vol] 0.40 mg/dL 0.00-1.30 [facility] CBC W/Diff, Automatedon 02-16 Absolute Lymph 2.13 X10 3/uL Normal 0.83-4.51 [facility] Comment on above: Performed By: #### L 300.4310, L300.3900 #### [facility] [address] [place], [address] Absolute Neut 3.3 X10 3/uL Normal 2.0-7.7 [facility] Comment on above: Performed By: #### L 300.4310, L300.3900 #### [facility] [address] [place], [address] Basophils/100 WBC (Bld) 0.8 % Normal 0-1 [facility] Comment on above: Performed By: #### L 300.4310, L300.3900 #### [facility] [address] [place], [address] Eosinophils/100 WBC (Bld) 3.8 % Normal 0-5 [facility] Comment on above: Performed By: #### L 300.4310, L300.3900 #### [facility] [address] [place], [address] Erythrocyte distribution width (RBC) [Ratio] 12.6 % Normal 11.6-14.6 [facility] Comment on above: Performed By: #### L 300.4310, L300.3900 #### [facility] [address] [place], [address] Hematocrit (Bld) [Volume fraction] 47.5 % Normal 40-54 [facility] Comment on above: Performed By: #### L 300.4310, L300.3900 #### [facility] [address] [place], [address] Hemoglobin (Bld) [Mass/Vol] 16.3 g/dL Normal 13.0-16.5 [facility] Comment on above: Performed By: #### L 300.4310, L300.3900 #### [facility] [address] [place], [address] IG% 0.500 Normal 0.0-0.9 [facility] Comment on above: Result Comment: IG% - Immature Granulocytes (promyelocytes, myelocytes and metamyelocytes) > 1% indicates that a LEFT SHIFT is Present. Performed By: #### L 300.4310, L300.3900 #### [facility] [address] [place], [address] Lymphocytes/100 WBC (Bld) 34.1 % Normal 19-41 [facility] Comment on above: Performed By: #### L 300.4310, L300.3900 #### [facility] [address] [place], [address] MCH (RBC) [Entitic mass] 29.9 pg Normal 27.0-32.0 [facility] Comment on above: Performed By: #### L 300.4310, L300.3900 #### [facility] [address] [place], [address] MCHC (RBC) [Mass/Vol] 34.3 g/dL Normal 32-36 [facility] Comment on above: Performed By: #### L 300.4310, L300.3900 #### [facility] [address] [place], [address] MCV (RBC) [Entitic vol] 87.0 fL Normal 80-94 [facility] Comment on above: Performed By: #### L 300.4310, L300.3900 #### [facility] [address] [place], [address] Monocytes/100 WBC (Bld) 8.0 % Normal 0-10 [facility] Comment on above: Performed By: #### L 300.4310, L300.3900 #### [facility] [address] [place], [address] Neutrophils/100 WBC (Bld) 52.8 % Normal 47-70 [facility] Comment on above: Performed By: #### L 300.4310, L300.3900 #### [facility] [address] [place], [address] Nucleated RBC (Bld) [#/Vol] 0 10*3/uL Normal 0-5 [facility] Comment on above: Performed By: #### L 300.4310, L300.3900 #### [facility] [address] [place], [address] Platelet mean volume (Bld) [Entitic vol] 10.3 fL Normal 6.2-12.0 [facility] Comment on above: Performed By: #### L 300.4310, L300.3900 #### [facility] [address] [place], [address] Platelets (Bld) [#/Vol] 229 10*3/uL Normal 150-450 [facility] Comment on above: Performed By: #### L 300.4310, L300.3900 #### [facility] [address] [place], [address] RBC (Bld) [#/Vol] 5.46 10*6/uL Normal 4.6-6.2 [facility] Comment on above: Performed By: #### L 300.4310, L300.3900 #### [facility] [address] [place], [address] RDW SD 39.7 fl Normal 35.1-43.9 [facility] Comment on above: Performed By: #### L 300.4310, L300.3900 #### [facility] [address] [place], [address] WBC (Bld) [#/Vol] 6.3 10*3/uL Normal 4.4-11.0 [facility] Comment on above: Performed By: #### L 300.4310, L300.3900 #### [facility] [address] [place], [address] Carbon dioxide, total [Moles /volume] in Central venous bloodOrdered By: Blake Andrea on 03-04-2025 CO2 [Moles/Vol] 24.9 mmol/L 21.0-32.0 [facility] Chest PA and Lateralon 03-04 Chest PA and Lateral [facility] [address] [place] [address] Chest PA and Lateral MR#: [id number] Acct: [id number] Name: SUKI ADORNO Rep #: [id number] : 1960 M 64 From: Kale bauer MD PCP: Dr. Kelsey Jacobs MD Status: [facility] ER Study: Chest PA and Lateral Date of Exam: 03/04/25 Exam# [id number] Ordering Dr: Blake Andrea MD PROCEDURE: CHEST PA AND LATERAL 03/04/2025 REASON FOR EXAM: SUBXIPHOID DISCOMFORT AND DYSPNEA TECHNIQUE: Frontal and lateral views of the chest. COMPARISON: None FINDINGS: Hardware: EKG electrodes are seen. Heart: The heart size is normal. Mediastinum: The mediastinal contour is unremarkable. Lungs: The lungs are clear. Bones: Degenerative changes are identified within the thoracic spine. RAD/Chest PA and Lateral IMPRESSION: NO ACUTE FINDINGS. Reading Location: [facility] CC: Dr. Kelsey Jacobs MD; Dr. Blake Andrea MD Cadd Instructor: Signed Normal [facility] Chloride assayOrdered By: Alpesh Andrea on 03-04-2025 Chloride [Moles/Vol] 101 mmol/L 98-108 [facility] Comprehensive Metabolic Prof ilon 03-04-2025 Albumin [Mass/Vol] 4.4 g/dL Normal 3.4-4.8 [facility] Comment on above: Performed By: #### L 300.4310, L300.3900 #### [facility] [address] [place], [address] Albumin/Globulin [Mass ratio] 1.4 {ratio} Normal 0.9-2.4 [facility] Comment on above: Performed By: #### L 300.4310, L300.3900 #### [facility] [address] [place], [address] ALK PHOS 85 U/L Normal 40-129 [facility] Comment on above: Performed By: #### L 300.4310, L300.3900 #### [facility] [address] [place], [address] ALT [Catalytic activity/Vol] 19 U/L Normal <=46 [facility] Comment on above: Performed By: #### L 300.4310, L300.3900 #### [facility] [address] [place], [address] AST [Catalytic activity/Vol] 23 U/L Normal <=37 [facility] Comment on above: Performed By: #### L 300.4310, L300.3900 #### [facility] [address] [place], [address] Bilirubin [Mass/Vol] 0.40 mg/dL Normal 0.00-1.30 [facility] Comment on above: Performed By: #### L 300.4310, L300.3900 #### [facility] [address] [place], [address] BUN/CRE 23.6 RATIO High 10-20 [facility] Comment on above: Performed By: #### L 300.4310, L300.3900 #### [facility] [address] [place], [address] Calcium [Mass/Vol] 9.1 mg/dL Normal 7.6-11.0 [facility] Comment on above: Performed By: #### L 300.4310, L300.3900 #### [facility] [address] [place], [address] Chloride [Moles/Vol] 101 mmol/L Normal 98-108 [facility] Comment on above: Performed By: #### L 300.4310, L300.3900 #### [facility] [address] [place], [address] CO2 [Moles/Vol] 24.9 mmol/L Normal 21.0-32.0 [facility] Comment on above: Performed By: #### L 300.4310, L300.3900 #### [facility] [address] [place], [address] Creatinine [Mass/Vol] 1.18 mg/dL Normal 0.70-1.20 [facility] Comment on above: Performed By: #### L 300.4310, L300.3900 #### [facility] [address] [place], [address] ECRCL 88.03 ml/min Normal 50-250 [facility] Comment on above: Performed By: #### L 300.4310, L300.3900 #### [facility] [address] [place], [address] GAP 11 Normal 5-15 [facility] Comment on above: Performed By: #### L 300.4310, L300.3900 #### [facility] [address] [place], [address] GFR/1.73 sq M.predicted among non-blacks MDRD (S/P/Bld) [Vol rate/Area] 70 mL/min/{1.73_m2} Normal >60 [facility] Comment on above: Result Comment: mL/m in/1.73m2 CKD-EPI Creatinine Equation (2020) Performed By: #### L 300.4310, L300.3900 #### [facility] [address] [place], [address] Globulin (S) [Mass/Vol] 3.1 g/dL Normal 2.2-4.2 [facility] Comment on above: Performed By: #### L 300.4310, L300.3900 #### [facility] [address] [place], [address] Glucose [Mass/Vol] 96 mg/dL Normal 70-99 [facility] Comment on above: Performed By: #### L 300.4310, L300.3900 #### [facility] [address] [place], [address] Potassium [Moles/Vol] 4.3 mmol/L Normal 3.3-5.1 [facility] Comment on above: Performed By: #### L 300.4310, L300.3900 #### [facility] [address] [place], [address] Sodium [Moles/Vol] 137 mmol/L Normal 133-145 [facility] Comment on above: Performed By: #### L 300.4310, L300.3900 #### [facility] [address] [place], [place], [id number] T PROT 7.4 g/dL Normal 5.9-8.4 [facility] Comment on above: Performed By: #### L 300.4310, L300.3900 #### [facility] [address] [place], [address] Urea nitrogen [Mass/Vol] 28 mg/dL High 4-19 [facility] Comment on above: Performed By: #### L 300.4310, L300.3900 #### [facility] [address] [place], [address] D-Dimer Quantitative (DVT/PE )on 03-04-2025 D-DIMER QUANT 0.30 FEU/ug/m Normal 0.27-0.49 [facility] Comment on above: Result Comment: NORM AL D-Dimer level (<0.50) indicates no DVT or PE. Performed By: #### L 300.4310, L300.3900 #### [facility] [address] [place], [place], [id number] D-dimer measurement for deep venous thrombosisOrdered By: Blake Andrea on 03-04-2025 D-Dimer Quantitative (PE/DVT) 0.30 FEU/ug/m 0.27-0.49 [facility] Comment on above: NORMAL D-Dimer level (<0.50) indicates no DVT or PE. Emergency Department Summary on 03-04-2025 Emergency Department Summary [facility] Medical Records Department [address] [place] [address] Emergency Department Summary 03/04/25 MR#: [id number] Acct: [id number] Name: SUKI ADORNO Rep #: [id number] : 1960 64 From: Blake Andrea MD PCP: Dr. Kelsey Jacobs MD Status:REG ER Location: ED HPI History of Present Illness Chief Complaint: Chest Pain Detail of Chief Complaint: Acute shortness of breath with heaviness xiphoid region Informant: patient Onset/Context/Timing Onset: Today and Hours Context: Sudden Onset Timing: Continuous Quality: Discomfort heaviness Location: Xiphoid region Current Severity: Mild Maximum Severity: Moderate Worsened by: Nothing Relieved by: Nothing Associated Symptoms Associated Symptoms: Dyspnea Narrative Narrative: Patient is a 64-year-old man who is a former smoker. He was diagnosed November of this year with a saddle pulmonary embolus with elevated troponin and BNP. He presents with abrupt onset of shortness of breath and discomfort in the xiphoid region. This is similar to when he had a pulmonary embolus. He does have history of hypertension on lisinopril and amlodipine. He is on apixaban 5 mg. He has not missed any doses. He does complain of some discomfort left leg. The discomfort is anterior. He has chronic swelling. There is no history of trauma. He denies history of peptic ulcer disease, hiatal hernia or reflux. He denies black or maroon-colored stool. He has no intolerance to greasy food. Patient has no other symptoms. Prior similar symptoms: Yes Recent Illness/Hospitalizat ion: No PFSH PFSH Medical History Acute saddle pulmonary embolism COVID Tinnitus Marijuana use Thrombosis Wears glasses Depression Alcohol use Arthritis Prostate disease Restless legs Migraine headache Smoker BiPAP (biphasic positive airway pressure) dependence Shortness of breath on exertion History of stress test Hypertension Hx of hypoglycemia Hx of migraines Hx of seasonal allergies Lipodermatosclerosis Venous stasis ulcer of ankle with fat layer exposed Chronic venous hypertension w/ulcer and inflammation involv left side Chronic venous insufficiency Seizures Home Medications ???Medication ???Instructions ???Recorded ???Last Taken ???Type blood pressure monitor #1 ea 12/12/22 Unknown Rx amlodipine 5 mg tablet See Rx Instructions .Route 5 03/03/25 Rx .COMPLEX #90 tabs escitalopram oxalate 10 mg tablet 10 mg PO DAILY #90 tabs 12/10/24 03/04/25 Rx (Lexapro) tamsulosin 0.4 mg capsule (Flomax) 0.4 mg PO QHS #90 caps 12/10/24 03/03/25 Rx apixaban 5 mg tablet (Eliquis) 5 mg PO BID #60 tabs 12/27/2402/16 Rx lisinopril 20 1 tab PO DAILY 03/04/25 03/04/25 H istory mg-hydrochlorothiazi de 12.5 mg tablet Allergy/AdvReac Type Severity Reaction Status Date / Time Penicillins Allergy Unknown UNKNOWN Verified 03/04/25 09:44 Family History Father Angina at rest Anxiety Diabetes Myocardial infarction Heart disease Hypertension Hyperlipidemia Respiratory disease Cancer esophageal Mother Cancer lung Depression Hormone disorder Seizures Osteoporosis Brother Myocardial infarction Hyperlipidemia Surgical History History of thrombectomy History of incision and drainage H/O foot surgery History of hemorrhoidectomy Hx of hand surgery History of nasal surgery Social History household members: significant other housing: house current occupational status: employed current occupation: [employer] sexually active: Yes Smoking Status: Former smoker quit date: 11/26/24 Electronic Cigarette Use: not used alcohol intake: current alcohol intake frequency: holidays/special occasions only substance use type: former substance user Date of last use: marijuana what type of physical activity do you participate in: walking and additional details: lifting frequency: 5-6 times per week seatbelt use: always do you feel safe at home: Yes ROS ROS ED Constitutional Constitutional ED: Denies chills, fever(s), subjective or sweats Eyes Eyes: Denies blurry vision or change in vision ENT ENT ED: Denies ear pain, rhinorrhea or sore throat Cardiovascular Cardiovascular: Reports chest pain; Denies orthopnea, palpitations, paroxysmal nocturnal dyspnea or racing heartbeat Respiratory/Chest Respiratory/Chest: Reports dyspnea and dyspnea on exertion; Denies cough, orthopnea or paroxysmal nocturnal dyspnea Gastrointestinal Gastrointestinal: Denies abdominal pain, melena, nausea or vomiting Musculoskeletal Musculoskeletal: Denies arthralgias, back pain or myalgias Int (more content not included)... Normal [facility] Eosinophil percentageOrdered By: Blake Andrea on 03-04-2025 Eosinophils/100 WBC (Bld) 3.8 % 0-5 [facility] Erythrocyte distribution wid th (RBC) [Ratio]Ordered By: Blake Andrea on 03-04-2025 Erythrocyte distribution width (RBC) [Entitic vol] 39.7 fL 35.1-43.9 [facility] Erythrocyte distribution wid th ratioOrdered By: Blakejoni Andrea on 03-04-2025 Erythrocyte distribution width (RBC) [Ratio] 12.6 % 11.6-14.6 [facility] Erythrocyte distribution wid th standard deviationOrdered By: Blakejoni Andrea on 03-04-2025 Erythrocyte distribution width (RBC) [Ratio] 39.7 fl 35.1-43.9 [facility] Estimation of creatinine ronaldo aranceOrdered By: Blake Andrea on 03-04-2025 Estimated Creatinine Clearance Calc 88.03 ml/min 50-250 [facility] GFR/1.73 sq M.predicted scott g non-blacks MDRD (S/P/Bld) [Vol rate/Area]Ordered By: Blake Andrea on 03-04-2025 Estimated GFR (MDRD) Non-Af Amer 70 >60 [facility] Comment on above: mL/min/1.73m2 CKD-EP I Creatinine Equation (2020) Glomerular filtration rate ( GFR) estimation/1.73 sq m using serum, plasma, or whole bOrdered By: Blake Andrea on 03-04-2025 GFR/1.73 sq M.predicted among non-blacks MDRD (S/P/Bld) [Vol rate/Area] 70 mL/min/{1.73_m2} >60 [facility] Comment on above: mL/min/1.73m2 CKD-EP I Creatinine Equation (2020) Hematocrit Auto (Bld) [Volum e fraction]Ordered By: Blake Andrea on 03-04-2025 Hematocrit (Bld) [Volume fraction] 47.5 % 40-54 [facility] Hemoglobin measurementOrdere d By: Blake Andrea on 03-04-2025 Hemoglobin (Bld) [Mass/Vol] 16.3 g/dL 13.0-16.5 [facility] Immature granulocytes/100 WB C Auto (Bld)Ordered By: Blake Andrea on 03-04-2025 Immature granulocytes/100 WBC (Bld) 0.500 % 0.0-0.9 [facility] Comment on above: IG% - Immature Granu locytes (promyelocytes, myelocytes and metamyelocytes) > 1% indicates that a LEFT SHIFT is Present. L499.0042on 03-04-2025 Trop T High Sen 12 ng/L Normal <=22 [facility] Comment on above: Performed By: #### L 300.4310, L300.3900 #### [facility] [address] [place], [address] L499.0043on 03-04-2025 Trop T High Sen Normal <=22 [facility] Comment on above: Result Comment: CONSUELO ENT DISCHARGED Performed By: #### L 300.4310, L300.3900 #### [facility] [address] [place], [address] L501.4021on 03-04-2025 Trop T High Sen 10 ng/L Normal <=22 [facility] Comment on above: Performed By: #### L 501.4021 #### [facility] [address] [place], [address] Laboratory - Chemistry and C hemistry - challengeOrdered By: Blake Andrea on 03-04-2025 AST [Catalytic activity/Vol] 23 U/L <38 [facility] Lactic Acidon 03-04-2025 Lactate [Moles/Vol] mmol/L Normal 0.0-2.0 [facility] Comment on above: Order Comment: Y Performed By: #### L 300.4310, L300.3900 #### [facility] [address] [place], [place], [id number] Lactic acid measurementOrder ed By: Blake Andrea on 03-04-2025 Lactate [Moles/Vol] mmol/L 0.0-2.0 [facility] Lymphocytes Auto (Unsp spec) [#/Vol]Ordered By: Blake Andrea on 03-04-2025 Lymphocytes (Bld) [#/Vol] 2.13 10*3/uL 0.83-4.51 [facility] Lymphocytes/100 WBC Auto (Un sp spec)Ordered By: Blakejoni Fofanao on 03-04-2025 Lymphocytes/100 WBC (Bld) 34.1 % 19-41 [facility] MCV (mean corpuscular volume ) determinationOrdered By: Blakejoni Andrea on 03-04-2025 MCV (RBC) [Entitic vol] 87.0 fL 80-94 [facility] Mean corpuscular hemoglobin (MCH) determinationOrdered By: Blakejoni Fofanao on 03-04-2025 MCH (RBC) [Entitic mass] 29.9 pg 27.0-32.0 [facility] Mean corpuscular hemoglobin concentration (MCHC) determinationOrdered By: Blake Andrea on 03-04-2025 MCHC (RBC) [Mass/Vol] 34.3 g/dL 32-36 [facility] Mean platelet volume determi nationOrdered By: Blake Andrea on 03-04-2025 Platelet mean volume (Bld) [Entitic vol] 10.3 fL 6.2-12.0 [facility] Monocyte percentageOrdered B y: [facility] Andrea on 03-04-2025 Monocytes/100 WBC (Bld) 8.0 % 0-10 [facility] Neutrophil percentageOrdered By: Blake Andrea on 03-04-2025 Neutrophils/100 WBC (Bld) 52.8 % 47-70 [facility] Nucleated red blood cell per centageOrdered By: Blake Andrea on 03-04-2025 Nucleated RBC/100 WBC (Bld) [Ratio] 0 % 0-5 [facility] Platelet countOrdered By: [facility] Andrea on 03-04-2025 Platelets (Bld) [#/Vol] 229 10*3/uL 150-450 [facility] Potassium (Unsp spec) [Mass/ Vol]Ordered By: Blakejoni Andrea on 03-04-2025 Potassium [Moles/Vol] 4.3 mmol/L 3.3-5.1 [facility] Potassium measurement (mass/ volume)Ordered By: Blakejoni Andrea on 03-04-2025 Potassium (Unsp spec) [Mass/Vol] 4.3 mmol/L 3.3-5.1 [facility] RBC Auto (Bld) [#/Vol]Ordere d By: Blake Andrea on 03-04-2025 RBC (Bld) [#/Vol] 5.46 10*6/uL 4.6-6.2 [facility] Serum creatinine measurement (mass/volume)Ordered By: Blake Andrea on 03-04-2025 Creatinine [Mass/Vol] 1.18 mg/dL 0.70-1.20 [facility] Serum globulin measurementOr dered By: Blake Andrae on 03-04-2025 Globulin (S) [Mass/Vol] 3.1 g/dL 2.2-4.2 [facility] Serum glucose measurement (m ass/volume)Ordered By: Blake Andrea on 03-04-2025 Glucose [Mass/Vol] 96 mg/dL 70-99 [facility] Serum or plasma alanine nicole otransferase (ALT) measurementOrdered By: Blakejoni Andrea on 03-04-2025 ALT [Catalytic activity/Vol] 19 U/L <47 [facility] Serum or plasma albumin bola urement (mass/volume)Ordered By: Blake Andrea on 03-04-2025 Albumin [Mass/Vol] 4.4 g/dL 3.4-4.8 [facility] Serum or plasma albumin/glob ulin mass ratioOrdered By: Blake Andrea 03-04-2025 Albumin/Globulin [Mass ratio] 1.4 {ratio} 0.9-2.4 [facility] Serum or plasma alkaline charly sphatase measurementOrdered By: Blake Andrea 03-04-2025 ALP [Catalytic activity/Vol] 85 U/L 40-129 [facility] Serum or plasma calcium bola urement (mass/volume)Ordered By: Blake Andrea 03-04-2025 Calcium [Mass/Vol] 9.1 mg/dL 7.6-11.0 [facility] Serum or plasma urea nitroge n measurement (mass/volume)Ordered By: Blake Andrea on 03-04-2025 Urea nitrogen [Mass/Vol] 28 mg/dL High 4-19 [facility] Sodium levelOrdered By: Blake Andrea on 03-04-2025 Sodium [Moles/Vol] 137 mmol/L 133-145 [facility] Total proteinOrdered By: Blake Andrea on 03-04-2025 Protein [Mass/Vol] 7.4 g/dL 5.9-8.4 [facility] Troponin T.cardiac High sens itivity method [Mass/Vol]Ordered By: Blake Andrea on 03-04-2025 Troponin T High Sensitivity 2 Hour 12 ng/L <22 [facility] Troponin T High Sensitivity 10 ng/L <22 [facility] Troponin T.cardiac [Mass/vol ume] in Serum or Plasma by High sensitivity methodOrdered By: Blake Andrea on 03-04-2025 Troponin T.cardiac High sensitivity method [Mass/Vol] 12 ng/L <22 [facility] Troponin T.cardiac High sensitivity method [Mass/Vol] 10 ng/L <22 [facility] White blood cell (WBC) count Ordered By: BlakeClonect Solutionso on 03-04-2025 WBC (Bld) [#/Vol] 6.3 10*3/uL 4.4-11.0 [facility] Echo Limited w/Contraston Echo Limited w/Contrast [facility] [address] [place] [address] Echo Limited w/Contrast 12/29/24 1117 MR#: [id number] Acct: [id number] Name: SUKI ADORNO Rep #: [id number] : 1960 64 From: Bib Bragg MD Attending Dr: TEX Jeffers Status: REG CLI Ordering Dr: Madyson Cardoso Date: 12/29/24 Location: [facility] Sex: M C Admitted: Reason For Study Reason For Study: PULMONARY EMBOLISM- S/P THROMBECTOMY Procedure This was a limited 2D transthoracic echocardiogram. The study was technically difficult. Contrast injection was performed. Exam performed in department. Left Ventricle Normal LV size. Mild concentric left ventricular hypertrophy. Left ventricular systolic function is normal. The left ventricular ejection fraction is 70 %. No regional wall motion abnormalities noted. Right Ventricle Normal RV size. Normal systolic function. Atria Normal left atrium. Mitral Valve Normal mitral valve. Tricuspid Valve Normal tricuspid valve. Aortic Valve Trisinus/trileaflet aortic valve. Pulmonic Valve The pulmonic valve is not well visualized. Great Vessels Normal aortic root. The pulmonary artery is normal size. Normal inferior vena cava. Pericardium/Pleural No pericardial effusion. Medication 22 gauge I.V. with prn adaptor inserted into left arm. Diluted definity 3ml given slow IV push to enhance endocardial definition. MMode/2D Measurements Calculations LVIDd: 4.3 cm IVSd: 1.2 cm asc Aorta Diam: 4.3 cm LVIDs: 2.3 cm LVPWd: 1.2 cm RVDd: 4.0 cm FS: 47.2 % LAV(MOD-bp): 40.0 ml LVAd ap4: 48.6 cm2 LVAd ap2: 54.3 cm2 LAV(MOD-bp) Indexed: 16.6 ml/m2 LVLd ap4: 10.1 cm LVLd ap2: 10.5 cm LAV(MOD-sp2): 53.4 ml EDV(MOD-sp4): 184.0 ml EDV(MOD-sp2): 224.9 ml LAV(MOD-sp4): 30.7 ml EDV(sp4-el): 198.2 ml EDV(sp2-el): 237.9 ml LVAs ap4: 30.5 cm2 LVAs ap2: 35.1 cm2 LVLs ap4: 9.1 cm LVLs ap2: 9.6 cm ESV(MOD-sp4): 81.5 ml ESV(MOD-sp2): 102.6 ml ESV(sp4-el): 86.7 ml ESV(sp2-el): 108.5 ml EF(MOD-sp4): 55.7 % EF(MOD-sp2): 54.4 % EF(sp4-el): 56.3 % SV(MOD-sp4): 102.5 ml SV(MOD-sp2): 122.3 ml SV(sp4-el): 111.5 ml SI(MOD-sp4): 42.6 ml/m2 SI(MOD-sp2): 50.8 ml/m2 Ao sinus diam: 4.[address] Junction: 3.4 cm LA A4 area: 12.3 cm2 LA dimension(2D): 4.1 cm TAPSE: 2.3 cm RA A4 area: 12.6 cm2 Time Measurements MV dec time: 0.18 sec Doppler Measurements Calculations MV E max cass: 73.1 cm/sec Lat Peak E' Cass: 13.0 cm/sec Med Peak E' Cass: 9.9 cm/sec MV A max cass: 68.5 cm/sec E/E' lat: 5.6 E/E' med: 7.4 MV E/A: 1.1 MV dec slope: 399.1 cm/sec2 PA V2 max: 79.1 cm/sec ECHO/Echo Limited w/Contrast Interpretation Summary Normal LV size. Left ventricular systolic function is normal. The left ventricular ejection fraction is 70 %. Mild concentric left ventricular hypertrophy. Contrast injection was performed. The study was technically difficult. Ordering Physician: Madyson Cardoso Referring Physician: Madyson Cardoso Performed By: Alma Herrera RDCS 12/29/241731 Date Bib Bragg MD CC: TEX Jeffers; Dr. Kelsey Jacobs MD Date Dictated: 12/29/241116 Date Transcribed: 12/29/241731 Cadd Instructor: Signed Normal [facility] Absolute lymphocyte countOrd ered By: Kelsey Jacobs on 12-10-2024 Lymphocytes Auto (Unsp spec) [#/Vol] 1.89 10*3/uL 0.83-4.51 [facility] Absolute neutrophil countOrd ered By: Kelsey Jacobs on 12-10-2024 Neutrophils (Bld) [#/Vol] 5.0 10*3/uL 2.0-7.7 [facility] Albumin to globulin ratioOrd ered By: Kelsey Jacobs on 12-10-2024 Albumin/Globulin [Mass ratio] 0.9 {ratio} 0.9-2.4 [facility] Automated lymphocyte count a s percentage of total leukocytesOrdered By: Kelsey Jacobs on 12-10-2024 Lymphocytes/100 WBC Auto (Unsp spec) 24.2 % 19-41 [facility] Basophil percentageOrdered B y: Kelsey Jacobs on 12-10-2024 Basophils/100 WBC (Bld) 0.8 % 0-1 [facility] Bilirubin, totalOrdered By: Kelsey Jacobs on 12-10-2024 Bilirubin [Mass/Vol] 0.60 mg/dL 0.20-1.00 [facility] Comment on above: For patients on eltr ombopag therapy, use of Dimension [place] TBIL is not recommended. Blood urea nitrogen (BUN)/cr eatinine ratioOrdered By: Kelsey Jacobs on 12-10-2024 Urea nitrogen/Creatinine [Mass ratio] 23.1 mg/mg High 10-20 [facility] CBC W/Diff, Automatedon 11-19 Absolute Lymph 1.89 X10 3/uL Normal 0.83-4.51 [facility] Comment on above: Performed By: #### L 300.4310, L300.3900 #### [facility] [address] [place], [address] Absolute Neut 5.0 X10 3/uL Normal 2.0-7.7 [facility] Comment on above: Performed By: #### L 300.4310, L300.3900 #### [facility] [address] [place], [address] Basophils/100 WBC (Bld) 0.8 % Normal 0-1 [facility] Comment on above: Performed By: #### L 300.4310, L300.3900 #### [facility] [address] [place], [address] Eosinophils/100 WBC (Bld) 3.5 % Normal 0-5 [facility] Comment on above: Performed By: #### L 300.4310, L300.3900 #### [facility] [address] [place], [address] Erythrocyte distribution width (RBC) [Ratio] 12.9 % Normal 11.6-14.6 [facility] Comment on above: Performed By: #### L 300.4310, L300.3900 #### [facility] [address] [place], [address] Hematocrit (Bld) [Volume fraction] 46.5 % Normal 40-54 [facility] Comment on above: Performed By: #### L 300.4310, L300.3900 #### [facility] [address] [place], [address] Hemoglobin (Bld) [Mass/Vol] 15.2 g/dL Normal 13.0-16.5 [facility] Comment on above: Performed By: #### L 300.4310, L300.3900 #### [facility] [address] [place], [address] IG% 0.400 Normal 0.0-0.9 [facility] Comment on above: Result Comment: IG% - Immature Granulocytes (promyelocytes, myelocytes and metamyelocytes) > 1% indicates that a LEFT SHIFT is Present. Performed By: #### L 300.4310, L300.3900 #### [facility] [address] [place], [address] Lymphocytes/100 WBC (Bld) 24.2 % Normal 19-41 [facility] Comment on above: Performed By: #### L 300.4310, L300.3900 #### [facility] [address] [place], [address] MCH (RBC) [Entitic mass] 28.9 pg Normal 27.0-32.0 [facility] Comment on above: Performed By: #### L 300.4310, L300.3900 #### [facility] [address] [place], [address] MCHC (RBC) [Mass/Vol] 32.7 g/dL Normal 32-36 [facility] Comment on above: Performed By: #### L 300.4310, L300.3900 #### [facility] [address] [place], [address] MCV (RBC) [Entitic vol] 88.4 fL Normal 80-94 [facility] Comment on above: Performed By: #### L 300.4310, L300.3900 #### [facility] [address] [place], [address] Monocytes/100 WBC (Bld) 7.7 % Normal 0-10 [facility] Comment on above: Performed By: #### L 300.4310, L300.3900 #### [facility] [address] [place], [address] Neutrophils/100 WBC (Bld) 63.4 % Normal 47-70 [facility] Comment on above: Performed By: #### L 300.4310, L300.3900 #### [facility] [address] [place], [address] Nucleated RBC (Bld) [#/Vol] 0 10*3/uL Normal 0-5 [facility] Comment on above: Performed By: #### L 300.4310, L300.3900 #### [facility] [address] [place], [address] Platelet mean volume (Bld) [Entitic vol] 10.6 fL Normal 6.2-12.0 [facility] Comment on above: Performed By: #### L 300.4310, L300.3900 #### [facility] [address] [place], [address] Platelets (Bld) [#/Vol] 282 10*3/uL Normal 150-450 [facility] Comment on above: Performed By: #### L 300.4310, L300.3900 #### [facility] [address] [place], [address] RBC (Bld) [#/Vol] 5.26 10*6/uL Normal 4.6-6.2 [facility] Comment on above: Performed By: #### L 300.4310, L300.3900 #### [facility] [address] [place], [address] RDW SD 41.9 fl Normal 35.1-43.9 [facility] Comment on above: Performed By: #### L 300.4310, L300.3900 #### [facility] [address] [place], [address] WBC (Bld) [#/Vol] 7.8 10*3/uL Normal 4.4-11.0 [facility] Comment on above: Performed By: #### L 300.4310, L300.3900 #### [facility] [address] [place], [address] Carbon dioxide measurementOr dered By: Kelsey Jacobs on 12-10-2024 CO2 [Moles/Vol] 24.0 mmol/L 21.0-32.0 [facility] Chloride measurementOrdered By: Kelsey Jacobs on 12-10-2024 Chloride [Moles/Vol] 104 mmol/L 98-107 [facility] Comprehensive Metabolic Prof ilon 12-10-2024 Albumin [Mass/Vol] 3.5 g/dL Normal 3.2-5.0 [facility] Comment on above: Performed By: #### L 300.4310, L300.3900 #### [facility] [address] [place], [address] Albumin/Globulin [Mass ratio] 0.9 {ratio} Normal 0.9-2.4 [facility] Comment on above: Performed By: #### L 300.4310, L300.3900 #### [facility] [address] [place], [address] ALK P 82 U/L Normal 45-117 [facility] Comment on above: Performed By: #### L 300.4310, L300.3900 #### [facility] [address] [place], [address] ALT [Catalytic activity/Vol] 34 U/L Normal 16-61 [facility] Comment on above: Performed By: #### L 300.4310, L300.3900 #### [facility] [address] [place], [address] AST [Catalytic activity/Vol] 17 U/L Normal 15-37 [facility] Comment on above: Performed By: #### L 300.4310, L300.3900 #### [facility] [address] [place], [address] Bilirubin [Mass/Vol] 0.60 mg/dL Normal 0.20-1.00 [facility] Comment on above: Result Comment: For patients on eltrombopag therapy, use of Dimension [place] TBIL is not recommended. Performed By: #### L 300.4310, L300.3900 #### [facility] [address] [place], [address] BUN/CRE 23.1 RATIO High 10-20 [facility] Comment on above: Performed By: #### L 300.4310, L300.3900 #### [facility] [address] [place], [address] CA,Total 8.8 mg/dL Normal 8.5-10.1 [facility] Comment on above: Performed By: #### L 300.4310, L300.3900 #### [facility] [address] [place], [address] Chloride [Moles/Vol] 104 mmol/L Normal 98-107 [facility] Comment on above: Performed By: #### L 300.4310, L300.3900 #### [facility] [address] [place], [address] CO2 [Moles/Vol] 24.0 mmol/L Normal 21.0-32.0 [facility] Comment on above: Performed By: #### L 300.4310, L300.3900 #### [facility] [address] [place], [address] Creatinine [Mass/Vol] 1.08 mg/dL Normal 0.70-1.30 [facility] Comment on above: Result Comment: The validity of the calculated GFR GFRAA in patients over 70 years has not been determined. Clinical correlation is essential. Performed By: #### L 300.4310, L300.3900 #### [facility] [address] [place], [address] EST GFR - AA 89 mL/min Normal >60 [facility] Comment on above: Result Comment: Afri can [place]oc[place] GFR Calc Performed By: #### L 300.4310, L300.3900 #### [facility] [address] [place], [address] GAP 8 Normal 5-15 [facility] Comment on above: Performed By: #### L 300.4310, L300.3900 #### [facility] [address] [place], [address] GFR/1.73 sq M.predicted among non-blacks MDRD (S/P/Bld) [Vol rate/Area] 74 mL/min/{1.73_m2} Normal >60 [facility] Comment on above: Result Comment: Non- GFR Calc Performed By: #### L 300.4310, L300.3900 #### [facility] [address] [place], [address] Globulin (S) [Mass/Vol] 3.7 g/dL Normal 2.2-4.2 [facility] Comment on above: Performed By: #### L 300.4310, L300.3900 #### [facility] [address] [place], [address] Glucose [Mass/Vol] 113 mg/dL High 74-106 [facility] Comment on above: Result Comment: Fast ing Glucose result from 100 to 125 mg/dL suggests IMPAIRED HOMEOSTASIS per A.D.A. criteria. Performed By: #### L 300.4310, L300.3900 #### [facility] [address] [place], [address] Potassium [Moles/Vol] 3.8 mmol/L Normal 3.5-5.1 [facility] Comment on above: Performed By: #### L 300.4310, L300.3900 #### [facility] [address] [place], [address] Sodium [Moles/Vol] 136 mmol/L Normal 136-145 [facility] Comment on above: Performed By: #### L 300.4310, L300.3900 #### [facility] [address] [place], [address] T PROT 7.2 g/dL Normal 6.4-8.2 [facility] Comment on above: Performed By: #### L 300.4310, L300.3900 #### [facility] [address] [place], [address] Urea nitrogen [Mass/Vol] 25 mg/dL High 7-18 [facility] Comment on above: Performed By: #### L 300.4310, L300.3900 #### [facility] [address] [place], [address] Diagnostic total prostate sp ecific antigen (PSA) measurementOrdered By: Kelsey Jacobs on 12-10-2024 Prostate Specific Antigen Total 2.88 ng/mL 0.0-4.0 [facility] Comment on above: This test was perfor med using the TPSA assay method for [employer] chemistry system. Values obtained with differentassay methods cannot be used interchangably.When changing PSA assays in the course of monitoring apatient, additional sequential testing should be carriedout to confirm baseline values. Eosinophil percentageOrdered By: Kelsey Jacobs on 12-10-2024 Eosinophils/100 WBC (Bld) 3.5 % 0-5 [facility] Erythrocyte distribution wid th (RBC) [Ratio]Ordered By: Kelsey Jacobs on 12-10-2024 Erythrocyte distribution width (RBC) [Entitic vol] 41.9 fL 35.1-43.9 [facility] Erythrocyte distribution wid th ratioOrdered By: Kelsey Jacobs on 12-10-2024 Erythrocyte distribution width (RBC) [Ratio] 12.9 % 11.6-14.6 [facility] Erythrocyte distribution wid th standard deviationOrdered By: Kelsey Jacobs on 12-10-2024 Erythrocyte distribution width (RBC) [Ratio] 41.9 fl 35.1-43.9 [facility] Estimated glomerular filtrat ion rate (GFR) AmericanOrdered By: Kelsey Jacobs on 12-10-2024 Estimated GFR (MDRD) Amer 89 mL/min >60 [facility] Comment on above: GFR Calc Glomerular filtration rate ( GFR) estimationOrdered By: Kelsey Jacobs on 12-10-2024 Estimated GFR (MDRD) Non-Af Amer 74 mL/min >60 [facility] Comment on above: Non- GFR Calc GFR/1.73 sq M.predicted among non-blacks MDRD (S/P/Bld) [Vol rate/Area] 74 mL/min/{1.73_m2} >60 [facility] Comment on above: Non- GFR Calc Glucose measurementOrdered B y: Kelsey Jacobs on 12-10-2024 Glucose [Mass/Vol] 113 mg/dL High 74-106 [facility] Comment on above: Fasting Glucose resu lt from 100 to 125 mg/dL suggests IMPAIRED HOMEOSTASIS per A.D.A. criteria. Hematocrit Auto (Bld) [Volum e fraction]Ordered By: Kelsey Jacobs on 12-10-2024 Hematocrit (Bld) [Volume fraction] 46.5 % 40-54 [facility] Hemoglobin measurementOrdere d By: Kelsey Jacobs on 12-10-2024 Hemoglobin (Bld) [Mass/Vol] 15.2 g/dL 13.0-16.5 [facility] High density lipoprotein (HD L) measurementOrdered By: Kelsey Jacobs on 12-10-2024 Cholesterol in HDL [Mass/Vol] 40 mg/dL >40 [facility] Comment on above: The drugs N-Acetylcy steine and Metamizole may falsely depress this assay. Reference Range HDL <40 mg/dL Low HDL Cholesterol HDL >or= 60 mg/dL High HDL Cholesterol Immature granulocytes/100 WB C Auto (Bld)Ordered By: Kelsey Jacobs on 12-10-2024 Immature granulocytes/100 WBC (Bld) 0.400 % 0.0-0.9 [facility] Comment on above: IG% - Immature Granu locytes (promyelocytes, myelocytes and metamyelocytes) > 1% indicates that a LEFT SHIFT is Present. Laboratory - Chemistry and C hemistry - challengeOrdered By: Kelsey Jacobs on 12-10-2024 AST [Catalytic activity/Vol] 17 U/L 15-37 [facility] Lipid Profileon 12-10-2024 Cholesterol [Mass/Vol] 196 mg/dL Normal 200 [facility] Comment on above: Result Comment: <200 mg/dL Desirable 200-240 mg/dL Borderline >240 mg/dL High Risk Performed By: #### L 300.4310, L300.3900 #### [facility] [address] [place], [place], [id number] Cholesterol in HDL [Mass/Vol] 40 mg/dL Normal [facility] Comment on above: Result Comment: The drugs N-Acetylcysteine and Metamizole may falsely depress this assay. Reference Range HDL <40 mg/dL Low HDL Cholesterol HDL >or= 60 mg/dL High HDL Cholesterol Performed By: #### L 300.4310, L300.3900 #### [facility] [address] [place], [address] Cholesterol in LDL [Mass/Vol] 110 mg/dL Normal 0-130 [facility] Comment on above: Performed By: #### L 300.4310, L300.3900 #### [facility] [address] [place], [address] Cholesterol in VLDL [Mass/Vol] 46 mg/dL High 5-40 [facility] Comment on above: Performed By: #### L 300.4310, L300.3900 #### [facility] [address] [place], [address] Triglyceride [Mass/Vol] 232 mg/dL High [facility] Comment on above: Result Comment: The drugs N-Acetylcysteine and Metamizole may falsely depress this assay. Serum Triglycerides Reference Interval Normal <150 mg/dL Borderline high 150 - 199 mg/dL High 200 - 499 mg/dL Very High > or = 500 mg/dL Performed By: #### L 300.4310, L300.3900 #### [facility] [address] [place], [address] Low density lipoprotein (LDL ) cholesterol measurementOrdered By: Kelsey Jacobs on 12-10-2024 Cholesterol in LDL [Mass/Vol] 110 mg/dL 0-130 [facility] Lymphocytes Auto (Unsp spec) [#/Vol]Ordered By: Kelsey [place] on 12-10-2024 Lymphocytes (Bld) [#/Vol] 1.89 10*3/uL 0.83-4.51 [facility] Lymphocytes/100 WBC Auto (Un sp spec)Ordered By: Kelsey Reynaldo on 12-10-2024 Lymphocytes/100 WBC (Bld) 24.2 % 19-41 [facility] MCV (mean corpuscular volume ) determinationOrdered By: Kelsey Jacosb on 12-10-2024 MCV (RBC) [Entitic vol] 88.4 fL 80-94 [facility] Mean corpuscular hemoglobin (MCH) determinationOrdered By: Kelsey Jacobs on 12-10-2024 MCH (RBC) [Entitic mass] 28.9 pg 27.0-32.0 [facility] Mean corpuscular hemoglobin concentration (MCHC) determinationOrdered By: Kelsey Jacobs on 12-10-2024 MCHC (RBC) [Mass/Vol] 32.7 g/dL 32-36 [facility] Mean platelet volume determi nationOrdered By: Kelsey Jacobs on 12-10-2024 Platelet mean volume (Bld) [Entitic vol] 10.6 fL 6.2-12.0 [facility] Monocyte percentageOrdered B y: Kelsey Jacobs on 12-10-2024 Monocytes/100 WBC (Bld) 7.7 % 0-10 [facility] Neutrophil percentageOrdered By: Kelsey Jacobs on 12-10-2024 Neutrophils/100 WBC (Bld) 63.4 % 47-70 [facility] Nucleated red blood cell per centageOrdered By: Kelsey Jacobs on 12-10-2024 Nucleated RBC/100 WBC (Bld) [Ratio] 0 % 0-5 [facility] PSA,Total- Diagnosticon 11-19 PSA, DIAGNOSTIC 2.88 ng/mL Normal 0.0-4.0 [facility] Comment on above: Result Comment: This test was performed using the TPSA assay method for the [employer] chemistry system. Values obtained with different assay methods cannot be used interchangably. When changing PSA assays in the course of monitoring a patient, additional sequential testing should be carried out to confirm baseline values. Performed By: #### L 300.4410, L300.3900 #### [facility] [address] [place], [address] Platelet countOrdered By: Lb Jacobs on 12-10-2024 Platelets (Bld) [#/Vol] 282 10*3/uL 150-450 [facility] Potassium measurementOrdered By: Kelsey Jacobs on 12-10-2024 Potassium [Moles/Vol] 3.8 mmol/L 3.5-5.1 [facility] RBC Auto (Bld) [#/Vol]Ordere d By: Kelsey Jacobs on 12-10-2024 RBC (Bld) [#/Vol] 5.26 10*6/uL 4.6-6.2 [facility] Serum anion gap measurementO rdered By: Kelsey Jacobs on 12-10-2024 Anion gap [Moles/Vol] 8 mmol/L 5-15 [facility] Serum globulin measurementOr dered By: Kelsey Jacobs on 12-10-2024 Globulin (S) [Mass/Vol] 3.7 g/dL 2.2-4.2 [facility] Serum or plasma alanine nicole otransferase (ALT) measurementOrdered By: Kelsey Jacobs on 12-10-2024 ALT [Catalytic activity/Vol] 34 U/L 16-61 [facility] Serum or plasma albumin bola urement (mass/volume)Ordered By: Kelsey Jacobs on 12-10-2024 Albumin [Mass/Vol] 3.5 g/dL 3.2-5.0 [facility] Serum or plasma alkaline charly sphatase measurementOrdered By: Kelsey Jacobs on 12-10-2024 ALP [Catalytic activity/Vol] 82 U/L 45-117 [facility] Serum or plasma calcium bola urement (mass/volume)Ordered By: Kelsey Jacobs on 12-10-2024 Calcium [Mass/Vol] 8.8 mg/dL 8.5-10.1 [facility] Serum or plasma cholesterol measurement (mass/volume)Ordered By: Kelsey Jacobs on 12-10-2024 Cholesterol [Mass/Vol] 196 mg/dL <200 [facility] Comment on above: <200 mg/dL Desirable 200-240 mg/dL Borderline >240 mg/dL High Risk Serum or plasma creatinine m easurement (mass/volume)Ordered By: Kelsey Jacobs on 12-10-2024 Creatinine [Mass/Vol] 1.08 mg/dL 0.70-1.30 [facility] Comment on above: The validity of the calculated GFR & GFRAA in patients over 70 years has not been determined. Clinical correlation is essential. Serum or plasma urea nitroge n measurement (mass/volume)Ordered By: Kelsey Jacobs on 12-10-2024 Urea nitrogen [Mass/Vol] 25 mg/dL High 7-18 [facility] Sodium levelOrdered By: Wang Jacobs on 12-10-2024 Sodium [Moles/Vol] 136 mmol/L 136-145 [facility] Total proteinOrdered By: Julian Jacobs on 12-10-2024 Protein [Mass/Vol] 7.2 g/dL 6.4-8.2 [facility] Triglycerides measurementOrd ered By: Kelsey aJcobs on 12-10-2024 Triglyceride [Mass/Vol] 232 mg/dL High <199 [facility] Comment on above: The drugs N-Acetylcy steine and Metamizole may falsely depress this assay.Serum Triglycerides Reference Interval Normal <150 mg/dL Borderline high 150 - 199 mg/dL High 200 - 499 mg/dL Very High > or = 500 mg/dL Very low density lipoprotein (VLDL) cholesterol measurementOrdered By: Kelsey Jacobs on 12-10-2024 Very low density lipoprotein (VLDL) cholesterol measurement 46 mg/dL High 5-40 [facility] VLDL Cholesterol 46 mg/dL High 5-40 [facility] White blood cell (WBC) count Ordered By: Kelsey Jacobs on 12-10-2024 WBC (Bld) [#/Vol] 7.8 10*3/uL 4.4-11.0 [facility] Internal Medicine Office Vis iton 12-08-2024 Internal Medicine Office Visit [facility] [address] [place] [address] [place] [address] OFFICE VISIT Date of Service: 12/10/24 MR#: [id number] Acct: [id number] Name: ADORNOSUKI Nkechi Rep #: [id number] : 1960 Provider: Dr. Kelsey calvo MD Age/Sex: 64/M [place] [facility] Status: Signed Intake Vital Signs 11/26/24 03:34 12/10/24 07:27 Height 6 ft 6 ft Weight: 267 lb BMI 36.2 BP 118/68 Blood Pressure Location Lt brachial Position Sitting Respiration 16 Pulse 65 Pulse Source Monitor Temp 98.2 F Temp Source Temporal Pulse Oximetry (%) 99 Oxygen Delivery Method room air Intake Visit Reasons: HOSP FU Chief Complaint: hosp fu Department Manager Required: No Accompanied by: Self Is patient in pain?: No Allergies Penicillins Allergy (Unknown, Verified 12/10/24 07:24) UNKNOWN Medications ???Medication ???Instructions ???Recorded ???Confirmed ???Type blood pressure monitor #1 ea 12/12/22 12/10/24 Rx apixaban 5 mg tablet (Eliquis) 10 mg (2 x 5 mg) PO BID #64 tabs 11/28/24 12/10/24 Rx amlodipine 5 mg tablet See Rx Instructions .Route 12/10/24 12/10/24 Rx .COMPLEX #90 tabs escitalopram oxalate 10 mg tablet 10 mg PO DAILY #90 tabs 12/10/24 12/10/24 Rx (Lexapro) lisinopril 20 See Rx Instructions .Route 12/10/24 12/10/24 Rx mg-hydrochlorothiazi de 12.5 mg .COMPLEX #90 tabs tablet tamsulosin 0.4 mg capsule (Flomax) 0.4 mg PO QHS #90 caps 12/10/24 12/10/24 Rx PFSH Medical History Acute saddle pulmonary embolism COVID Tinnitus Marijuana use Thrombosis Wears glasses Depression Alcohol use Arthritis Prostate disease Restless legs Migraine headache Smoker BiPAP (biphasic positive airway pressure) dependence Shortness of breath on exertion History of stress test Hypertension Hx of hypoglycemia Hx of migraines Hx of seasonal allergies Lipodermatosclerosis Venous stasis ulcer of ankle with fat layer exposed Chronic venous hypertension w/ulcer and inflammation involv left side Chronic venous insufficiency Seizures Surgical History (Updated 12/10/24 @ 07:[address] Kelsey Jacobs MD) History of thrombectomy History of incision and drainage H/O foot surgery History of hemorrhoidectomy Hx of hand surgery History of nasal surgery Family History Father Angina at rest Anxiety Diabetes Myocardial infarction Heart disease Hypertension Hyperlipidemia Respiratory disease Cancer esophageal Mother Cancer lung Depression Hormone disorder Seizures Osteoporosis Brother Myocardial infarction Hyperlipidemia Social History (Updated 12/10/24 @ 07:[address] Kelsey Jacobs MD) household members: significant other housing: house current occupational status: employed current occupation: [employer] sexually active: Yes Smoking Status: Former smoker quit date: 11/26/24 Electronic Cigarette Use: not used alcohol intake: current alcohol intake frequency: holidays/special occasions only substance use type: former substance user Date of last use: marijuana what type of physical activity do you participate in: walking and additional details: lifting frequency: 5-6 times per week seatbelt use: always do you feel safe at home: Yes HPI HPI Chief Complaint: hosp fu Details: SUKI ADORNO, is a 64 M who presents to the office today for a follow up.??? He never did his blood work as previously ordered, however, did have some labs done during a recent hospitalization. He is up to date on his screening.??? He doesn't want a flu shot.??? He quit smoking since being in the hospital. He does have cravings, but has no desire to return to it. He does need refills today.??? He reports he is eating healthy. His activity is limited due to his recent hospital stay. ??? He has been checking his blood pressure at home. He reports it is similar to today's readings. He is taking his medication as prescribed without problems. He is trying to monitor his salt intake stating he doesn't add salt to his meals. The patient continues to do well on the lexapro without problems. He denies any current concerns about depression or anxiety and denies any thoughts of suicide. He has been wearing his BiPAP every night. He does well with it. He reports the flomax has been helping with his urinary dribbling. He has previously declined testosterone replacement for his low levels. The patient presented to the ED on 11/26 with complaints of shortness of breath and lightheadedness which started a couple of weeks before, but significantly worsened the day prior. The patient was noted to be hypoxic and started on oxygen. Work up did show a saddle embolus with heart strain and he was admitted for further management. During (more content not included)... Normal [facility] MR/BMSArnold 12-02-2024 MR/BMS.KAT [facility] [address] [place] [address] OFFICE VISIT Date of Service: 12/02/24 MR#: [id number] Acct: [id number] Name: SUKI ADORNO Rep #: [id number] : 1960 Provider: TEX Jeffers Age/Sex: 64/M Location[place] [facility] Status: Signed Intake Vital Signs 11/26/24 03:34 12/02/24 14:33 Height 6 ft Weight: 266 lb BP 118/71 Blood Pressure Location Lt brachial Position Sitting Respiration 16 Pulse 77 Pulse Source Monitor Temp 97.7 F L Temp Source Temporal Pulse Oximetry (%) 95 Oxygen Delivery Method room air Intake Visit Reasons: Stitch removal/FU Is patient in pain?: No Allergies Penicillins Allergy (Unknown, Verified 12/02/24 14:34) UNKNOWN Medications ???Medication ???Instructions ???Recorded ???Confirmed ???Type blood pressure monitor #1 ea 12/12/22 12/02/24 Rx tamsulosin 0.4 mg capsule (Flomax) 0.4 mg PO QHS #90 caps 05/07/24 12/02/24 Rx amlodipine 5 mg tablet See Rx Instructions .Route 05/27/24 12/02/24 Rx .COMPLEX #90 tabs escitalopram oxalate 10 mg tablet 10 mg PO DAILY #90 tabs 05/27/24 12/02/24 Rx (Lexapro) lisinopril 20 See Rx Instructions .Route 05/27/24 12/02/24 Rx mg-hydrochlorothiazi de 12.5 mg .COMPLEX #90 tabs tablet apixaban 5 mg tablet (Eliquis) 10 mg (2 x 5 mg) PO BID #64 tabs 11/28/24 12/02/24 Rx Have you fallen in the past year?: No PFSH Medical History COVID Tinnitus Marijuana use Thrombosis Wears glasses Depression Alcohol use Arthritis Prostate disease Restless legs Migraine headache Smoker BiPAP (biphasic positive airway pressure) dependence Shortness of breath on exertion History of stress test Hypertension Hx of hypoglycemia Hx of migraines Hx of seasonal allergies Lipodermatosclerosis Venous stasis ulcer of ankle with fat layer exposed Chronic venous hypertension w/ulcer and inflammation involv left side Chronic venous insufficiency Seizures Surgical History History of incision and drainage H/O foot surgery History of hemorrhoidectomy Hx of hand surgery History of nasal surgery Family History Father Angina at rest Anxiety Diabetes Myocardial infarction Heart disease Hypertension Hyperlipidemia Respiratory disease Cancer esophageal Mother Cancer lung Depression Hormone disorder Seizures Osteoporosis Brother Myocardial infarction Hyperlipidemia Social History household members: significant other housing: house current occupational status: employed current occupation: [employer] sexually active: Yes Smoking Status: Current every day smoker tobacco type: cigarettes Electronic Cigarette Use: not used quit status: considering quitting alcohol intake: current alcohol intake frequency: holidays/special occasions only substance use type: marijuana what type of physical activity do you participate in: walking and additional details: lifting frequency: 5-6 times per week seatbelt use: always do you feel safe at home: Yes HPI HPI HPI: SUKI ADORNO, is a 64 M who presents to the office today for follow-up s/p recent percutaneous mechanical thrombectomy of the bilateral pulmonary arteries on 11/26/24 secondary to submassive PE with associated right heart strain. He also had lower extremity venous duplex which showed R CFV and FV with acute on chronic DVT, POPV and gastrocV with acute DVT, GSV, ASV, and thigh varicosities with acute SVT; no SVT/DVT in the LLE. Due to the acute on chronic nature of the more proximal portion of the DVT and his relatively minimal new/acute lower extremity symptoms, lower extremity thrombectomy was not pursued. He tolerated the procedure very well and it was without complication. He does have a suture in place in the R groin which needs to be removed today. He notes he has a lot of bruising around the R femoral access site and some soreness, but no significant swelling, redness, or drainage. He states he felt better immediately after the procedure. He does still have some SOB with activity but much better than before. He continues to have general fatigue. He feels his lower extremity edema is stable, but he has noticed that his LLE venous ulcerations seem to be improving now where they had been stagnant for weeks. He is tolerating the Eliquis without adverse bleeding. He does indicate that he will need some paperwork filled out for time off work though he does not have this with him today. He works at [employer] here in [place] in a fairly labor-intensive role. ROS General General: No weight change, appetite, fatigue (more content not included)... Normal [facility] Discharge Instructionon 11-18 Discharge Instruction [facility] Medical Records Department [address] [place] [address] Instructions for Home/Discharge Instructions 11/28/24 1133 MR#: [id number] Acct: [id number] Name: SUKI ADORNO Rep #: [id number] : 1960 64 From: Hemant Castillo DO PCP: Dr. Kelsey Jacobs MD Status:ADM IN Discharge Instructions Diet Discharge Diet: No restrictions DC O2, CPAP, BIPAP needs RN Home O2 Qualification: Home O2 Qualification: Is the patient on home oxygen No 11/28/24 09:03 Home O2 Qualification: AT REST 1- Pulse Ox at rest 93 11/28/24 09:03 Home O2 Qualification: WITH AMBULATION 1- Pulse Ox with ambulation 90 11/28/24 09:03 1- Oxygen Flow Rate with 0 11/28/24 09:03 ambulation 2- Pulse Ox with ambulation 85 11/27/24 11:46 2- Oxygen Flow Rate with 2 11/27/24 11:46 ambulation 3- Pulse Ox with ambulation 95 11/27/24 11:46 3- Oxygen Flow Rate with 4 11/27/24 11:46 ambulation Home O2 Discharge instructions: No Dressing / Incision Discharge Activity: Return to Normal Activity Weight Bearing Status: Full weight bearing Follow Up Care Test Results: Test results from this visit will be discussed in further detail at your follow-up appointment, if applicable. Discharge Plan Admission Admit Date/Time: 11/26/24 00:57 Primary Reason for Your Visit: Pulmonary embolism Attending Provider: Hemant Castillo Primary Care Provider: Kelsey Jacobs Consulting Providers: Nestor Chaidez; Shashank Millan Discharge Orders/Prescriptions Prescriptions: New Eliquis 5 mg Tablet 10 mg PO BID Qty: 64 0RF Rx Instructions: 10 mg twice a day for a total of 11 doses, then 5 mg twice a day thereafter Continued (DME) blood pressure monitor Kit See Rx Instructions .Route Qty: 1 0RF Rx Instructions: As directed amlodipine 5 mg tablet See Rx Instructions .ROUTE .COMPLEX Qty: 90 1RF Dose Instruction: TAKE 1 TABLET BY MOUTH AT BEDTIME Rx Instructions: TAKE 1 TABLET BY MOUTH AT BEDTIME escitalopram oxalate [Lexapro] 10 mg tablet 10 mg PO DAILY Qty: 90 1RF lisinopril-hydrochlo rothiazide 20-12.5 mg tablet See Rx Instructions .ROUTE .COMPLEX Qty: 90 1RF Dose Instruction: TAKE 1 TABLET BY MOUTH EVERY DAY Rx Instructions: TAKE 1 TABLET BY MOUTH EVERY DAY tamsulosin [Flomax] 0.4 mg capsule 0.4 mg PO QHS Qty: 90 1RF Discontinued ibuprofen 800 mg tablet 800 mg PO BID PRN (Reason: Pain) Referrals / Follow Up: Kelsey Jacobs MD [Primary Care Provider] - Within 2 Weeks Shashank Millan MD [Med Staff - Active Staff] - See Referral Note (In 2 weeks, call for an appointment) Disposition Disposition (needs filled in before D/C Order can be placed): Home, Self Care 11/28/24 1146 Hemant Castillo DO CC: Dr. Nestor Chaidez DO; Dr. Kelsey Jacobs MD; Dr. Shashank Millan MD Signed Normal [facility] Partial Thromboplast Timeon 11-27-2024 aPTT Coag (Bld) [Time] 33.7 s Normal 24.1-36.2 [facility] Comment on above: Performed By: #### L 229.4310 ####[facility] [address] [place], [place], [id number] aPTT Coag (Bld) [Time] 31.2 s Normal 24.1-36.2 [facility] Comment on above: Performed By: #### L [id number] ####[facility] [address] [place], [place], [id number] aPTT Coag (PPP) [Time]Ordere d By: Juan Jose Knight on 11-27-2024 aPTT Coag (Bld) [Time] 33.7 s 24.1-36.2 [facility] Basic Metabolic Profile (BMP )on 11-26-2024 BUN/CRE 20.9 RATIO High 10-20 [facility] Comment on above: Performed By: #### L 300.4310, L300.3900 #### [facility] [address] [place], [address] CA,Total 8.5 mg/dL Normal 8.5-10.1 [facility] Comment on above: Performed By: #### L 300.4310, L300.3900 #### [facility] [address] [place], [address] Chloride [Moles/Vol] 108 mmol/L High 98-107 [facility] Comment on above: Performed By: #### L 300.4310, L300.3900 #### [facility] [address] [place], [address] CO2 [Moles/Vol] 24.0 mmol/L Normal 21.0-32.0 [facility] Comment on above: Performed By: #### L 300.4310, L300.3900 #### [facility] [address] [place], [address] Creatinine [Mass/Vol] 1.15 mg/dL Normal 0.70-1.30 [facility] Comment on above: Result Comment: The validity of the calculated GFR GFRAA in patients over 70 years has not been determined. Clinical correlation is essential. Performed By: #### L 300.4310, L300.3900 #### [facility] [address] [place], [address] ECRCL 90.02 ml/min Normal [facility] Comment on above: Performed By: #### L 300.4310, L300.3900 #### [facility] [address] [place], [address] EST GFR - AA 83 mL/min Normal >60 [facility] Comment on above: Result Comment: Afri can Moroccan GFR Calc Performed By: #### L 300.4310, L300.3900 #### [facility] [address] [place], [address] GAP 8 Normal 5-15 [facility] Comment on above: Performed By: #### L 300.4310, L300.3900 #### [facility] [address] [place], [address] GFR/1.73 sq M.predicted among non-blacks MDRD (S/P/Bld) [Vol rate/Area] 68 mL/min/{1.73_m2} Normal >60 [facility] Comment on above: Result Comment: Non- GFR Calc Performed By: #### L 300.4310, L300.3900 #### [facility] [address] [place], [address] Glucose [Mass/Vol] 168 mg/dL High 74-106 [facility] Comment on above: Result Comment: Fast ing Glucose result greater than or equal to 126 mg/dL suggests DIABETES MELLITUS per A.D.A. criteria. Performed By: #### L 300.4310, L300.3900 #### [facility] [address] [place], [address] Potassium [Moles/Vol] 4.6 mmol/L Normal 3.5-5.1 [facility] Comment on above: Performed By: #### L 300.4310, L300.3900 #### [facility] [address] [place], [address] Sodium [Moles/Vol] 140 mmol/L Normal 136-145 [facility] Comment on above: Performed By: #### L 300.4310, L300.3900 #### [facility] [address] [place], [address] Urea nitrogen [Mass/Vol] 24 mg/dL High 7-18 [facility] Comment on above: Performed By: #### L 300.4310, L300.3900 #### [facility] [facility] [address] [place], [address] Blood urea nitrogen (BUN)/cr eatinine ratioOrdered By: Nestor Chaidez on 11-26-2024 Urea nitrogen/Creatinine [Mass ratio] 20.9 mg/mg High 10-20 [facility] CBC-Complete Blood Cnt No Di ffon 11-26-2024 Erythrocyte distribution width (RBC) [Ratio] 12.7 % Normal 11.6-14.6 [facility] Comment on above: Performed By: #### L 300.4310, L300.3900 #### [facility] [address] [place], [address] Hematocrit (Bld) [Volume fraction] 48.0 % Normal 40-54 [facility] Comment on above: Performed By: #### L 300.4310, L300.3900 #### [facility] [address] [place], [address] Hemoglobin (Bld) [Mass/Vol] 16.2 g/dL Normal 13.0-16.5 [facility] Comment on above: Performed By: #### L 300.4310, L300.3900 #### [facility] [address] [place], [address] MCH (RBC) [Entitic mass] 29.6 pg Normal 27.0-32.0 [facility] Comment on above: Performed By: #### L 300.4310, L300.3900 #### [facility] [address] [place], [address] MCHC (RBC) [Mass/Vol] 33.8 g/dL Normal 32-36 [facility] Comment on above: Performed By: #### L 300.4310, L300.3900 #### [facility] [address] [place], [address] MCV (RBC) [Entitic vol] 87.6 fL Normal 80-94 [facility] Comment on above: Performed By: #### L 300.4310, L300.3900 #### [facility] [address] [place], [address] Platelet mean volume (Bld) [Entitic vol] 10.4 fL Normal 6.2-12.0 [facility] Comment on above: Performed By: #### L 300.4310, L300.3900 #### [facility] [address] [place], [address] Platelets (Bld) [#/Vol] 166 10*3/uL Normal 150-450 [facility] Comment on above: Performed By: #### L 300.4310, L300.3900 #### [facility] [address] [place], [address] RBC (Bld) [#/Vol] 5.48 10*6/uL Normal 4.6-6.2 [facility] Comment on above: Performed By: #### L 300.4310, L300.3900 #### [facility] [address] [place], [address] RDW SD 41.1 fl Normal 35.1-43.9 [facility] Comment on above: Performed By: #### L 300.4310, L300.3900 #### [facility] [address] [place], [address] WBC (Bld) [#/Vol] 8.3 10*3/uL Normal 4.4-11.0 [facility] Comment on above: Performed By: #### L 300.4310, L300.3900 #### [facility] [address] [place], [address] CTA Chest W/WO Contraston CTA Chest W/WO Contrast [facility] Imaging Services [address] [place] [address] CTA Chest W/WO Contrast MR#: [id number] Acct: [id number] Name: SUKI ADORNO Rep #: [id number] : 1960 M 64 From: Fausto Moseley MD PCP: Dr. Kelsey Jacobs MD Status: ADM IN Study: CTA Chest W/WO Contrast Date of Exam: 11/26/24 Exam# [id number] Ordering Dr: Nestor Chaidez DO ADDENDUM by Dr. Fausto Moseley MD on 11/26/24 at 0203 ADDENDUM [id number] Charge nurse Linda Swan was notified of these findings on 11/26/2024 at 1:00 AM central time telephonically by myself and she stated she would immediately notify Dr. Chaidez. Electronically Signed: Fausto Moseley DO at 2:03 EST , N.B. : The above Results were Read Back by Fausto Moseley DO to Linda Swan RN, and understanding confirmed on 11/26/2024 02:02:17 (ET). 11/26/24 0203 Date cc: Dr. Nestor Chaidez DO; Dr. Kelsey Jacobs MD * Signed ADDENDUM by Dr. Fausto Moseley MD on 11/26/24 at 0157 [id number] INDICATION: eval for PE EXAMINATION: CT CHEST WITH CONTRAST - CT Chest W/ Contrast Injection TECHNIQUE: Helically acquired images were obtained of the chest with sagittal and coronal reconstructed images. Three-D reconstructed images were reviewed. Individualized dose optimization techniques were used for this CT. IV contrast dosage and agent: 100 mL of Isovue-370. COMPARISON: None. ____ FINDINGS: LUNGS, PLEURA AND LARGE AIRWAYS: No consolidation or edema. No pulmonary nodule. No pleural effusion. No pneumothorax. THYROID: Unremarkable. HEART AND PERICARDIUM: Coronary artery calcifications are present. No pericardial effusion. MEDIASTINUM AND KYAW: No mediastinal or hilar adenopathy. Esophagus is unremarkable. No hiatal hernia. VESSELS: Thoracic aorta is unremarkable. Extensive pulmonary emboli including a saddle embolus with emboli extending to the bilateral lobar, segmental and subsegmental pulmonary arteries. UPPER ABDOMEN: The visualized upper abdomen is unremarkable. BONES: No acute abnormality. ___ 11/26/24 0157 Date cc: Dr. Nestor Chaidez DO; Dr. Kelsey Jacobs MD * Signed ADDENDUM by Dr. Fausto Moseley MD on 11/26/[address]/CTA Chest W/WO Contrast IMPRESSION: undefined 11/26/24 0210 Date cc: Dr. Nestor Chaidez DO; Dr. Kelsey Jacobs MD * Signed ADDENDUM by Dr. Fausto Moseley MD on 11/26/[address]/CTA Chest W/WO Contrast IMPRESSION: Extensive pulmonary emboli including a saddle embolus with emboli extending to the bilateral lobar, segmental and subsegmental pulmonary arteries. No evidence of right heart strain but the artery to L3 ratio just under 1. N.B. : The above Results were Read Back by Fausto Moseley DO to Linda Swan RN, and understanding confirmed on 11/26/2024 02:02:17 (ET). Electronically Signed: Fausto Moseley DO at 1:57 EST , 11/26/24 0209 Date cc: Dr. Nestor Chaidez DO; Dr. Kelsey Jacobs MD * Signed We are attempting to reach an attending provider to discuss findings. An addendum with communication details will be sent when the communication is complete. [id number] INDICATION: eval for PE EXAMINATION: CT CHEST WITH CONTRAST - CT Chest W/ Contrast Injection TECHNIQUE: Helically acquired images were obtained of the chest with sagittal and coronal reconstructed images. Three-D reconstructed images were reviewed. Individualized dose optimization techniques were used for this CT. IV contrast dosage and agent: 100 mL of Isovue-370. COMPARISON: None. ____ FINDINGS: LUNGS, PLEURA AND LARGE AIRWAYS: No consolidation or edema. No pulmonary nodule. No pleural effusion. No pneumothorax. THYROID: Unremarkable. HEART AND PERICARDIUM: Coronary artery calcifications are present. No pericardial effusion. MEDIASTINUM AND KYAW: No mediastinal or hilar adenopathy. Esophagus is unremarkable. No hiatal hernia. VESSELS: Thoracic aorta is unremarkable. Extensive pulmonary emboli including a saddle embolus with emboli extending to the bilateral lobar, segmental and subsegmental pulmonary arteries. UPPER ABDOMEN: The visuali (more content not included)... Normal [facility] Carbon dioxide measurementOr dered By: Nestor Chaidez on 11-26-2024 CO2 [Moles/Vol] 24.0 mmol/L 21.0-32.0 [facility] Chloride measurementOrdered By: Nestor Chaidez on 11-26-2024 Chloride [Moles/Vol] 108 mmol/L High 98-107 [facility] Consultation - Intensiviston 11-26-2024 Consultation - Sample Supervisor [facility] Medical Records Department [address] [place] [address] Consultation - Sample Supervisor 11/26/24 1025 MR#: [id number] Acct: [id number] Name: SUKI ADORNO Rep #: [id number] : 1960 64 From: Hugo Vee DO PCP: Dr. Kelsey Jacobs MD Status:ADM IN Location: [place] [address] Assessment Plan Assessment/Plan (1) Acute saddle pulmonary embolism: PLAN: Plan RECOMMENDATIONS: 1. Supplemental oxygen to maintain saturations at or above 90%. 2. Proceed with thrombectomy as scheduled. 3. Continue weight-based heparin infusion. 4. Encourage incentive spirometer use and mobilize patient as tolerated. 5. Outpatient pulmonary follow-up after discharge is warranted. IMPRESSIONS: 1. Bilateral pulmonary emboli with hypoxemia CTA demonstrated saddle pulmonary emboli with right greater than left involvement. The patient has evidence of RV strain along with RV dysfunction noted on echocardiogram. He is symptomatic and hypoxemic. Therefore, vascular surgery was consulted to evaluate the patient for thrombectomy, which is certainly reasonable at this point. Following this, the patient can be transition from a weight-based heparin infusion to either Eliquis or Xarelto. He will require outpatient follow-up after discharge. Continue to wean supplemental oxygen, in the interim, to maintain saturations at or above 90%. 2. History of chronic tobacco dependency/obstructi ve sleep apnea/hypertension/B PH/peripheral vascular disease Complicates care, management, recovery and prognosis. Smoking cessation counseling was provided. I would recommend that baseline PFTs to be completed after the patient is discharged from the hospital. This note was generated with VOIQation software. It may contain incorrect words, spelling, and punctuation that were not noted in checking the note before signing. HPI Consult Data Date of Consult: 11/26/24 HPI Narrative Reason for Consultation: Pulmonary emboli HPI Narrative: The patient is a 64-year-old male, with a history as outlined below, who presented to the emergency department on November 26 with complaints of shortness of breath. The patient reported that he was diagnosed with a superficial venous thrombosis previously, but never required any form of systemic anticoagulation. 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 The patient is a current everyday smoker, but is never been formally diagnosed with COPD, nor has he ever establish care with a pressure steamer tender. He does have a documented history of sleep apnea with a split-night sleep study had been completed in November 2022, which demonstrated an overall AHI of 11.5 events per hour. On presentation to the emergency department, the patient was documented to be afebrile hemodynamically stable. The patient was hypoxemic, requiring 4 L/min of supplemental oxygen. Laboratory evaluation revealed a white blood cell count of 12,000. BNP was elevated at 353 with a troponin of 473. CTA chest demonstrated saddle pulmonary embolism with right greater than left proximal involvement. There was evidence of right heart strain, which was confirmed on echocardiogram. Surface echocardiogram demonstrated a moderately dilated RV with moderate global RV systolic dysfunction, D-shaped septum and normal pulmonary artery systolic pressures. [facility] Medical History COVID Tinnitus Marijuana use Thrombosis Wears glasses Depression Alcohol use Arthritis Prostate disease Restless legs Migraine headache Smoker BiPAP (biphasic positive airway pressure) dependence Shortness of breath on exertion History of stress test Hypertension Hx of hypoglycemia Hx of migraines Hx of seasonal allergies Lipodermatosclerosis Venous stasis ulcer of ankle with fat layer exposed Chronic venous hypertension w/ulcer and inflammation involv left side Chronic venous insufficiency Seizures Home Medications ???Medication ???Instructions ???Recorded ???Last Taken ???Type blood pressure monitor #1 ea 12/12/22 Unknown Rx ibuprofen 800 mg tablet 800 mg PO BID PRN Pain 12/12/22 Unknown History tamsulosin 0.4 mg capsule (Flomax) 0.4 mg PO QHS #90 caps 05/07/24 Unknown Rx amlodipine 5 mg tablet See Rx Instructions .Route 05/27/24 Unknown Rx .COMPLEX #90 tabs escitalopram oxalate 10 mg tablet 10 mg PO DAILY #90 tabs 05/27/24 Unknown Rx (Lexapro) lisinopril 20 See Rx Instructions .Route 05/27/24 Unknown Rx mg-hydrochlorothiazi de 12.5 mg .COMPLEX #90 tabs tablet Allergy/AdvReac Type Severity Reaction Status Date / Time Penicillins Allergy Unknown UNKNOWN Verified 11/25/24 22:30 Family History Father Angina at rest Anxiety Ashley (more content not included)... Normal [facility] Consultation - Surgicalon Consultation - Surgical [facility] Medical Records Department [address] [place] [address] Consultation - Surgical 11/26/24812 MR#: [id number] Acct: [id number] Name: SUKI ADORNO Rep #: [id number] : 1960 64 From: Madyson NCIE PCP: Dr. Kelsey Jacobs MD Status:ADM IN Location: [place] [address] Assessment Plan Assessment/Plan (1) Acute saddle pulmonary embolism: PLAN: Plan With significant clot burden and evidence of right heart strain, patient is a candidate for thrombectomy. He is hemodynamically stable, requiring 4 lpm O2; feel he is appropriate for intervention here. Will also have pulmonary evaluate for their recommendations as well. Discussed procedure risks, benefits, alternatives, and recovery with the patient and his partner and he does wish to proceed with the procedure. HPI Consult Data Date of Consult: 11/26/24 HPI Narrative HPI Narrative: SUKI ADORON, is a 64 M who presented to the [facility] ER overnight with acutely worsened SOB and presyncope. He had CTA Chest which showed saddle pulmonary embolus and suggested R heart strain and he was admitted on a heparin drip. Initial troponin was 473, BNP 353, lactic acid 1.4. Echo and lower extremity venous duplex are pending. He reports that over the last few weeks he has had congestion/upper respiratory symptoms, mild SOB, and overall not feeling well with fatigue and significantly diminished activity. He had taken the last several days off work and had been spending most of his time at home in bed or in the recliner sleeping. Yesterday morning he noted worsened shortness of breath with activity, then in the evening it worsened further to the point where he felt he would pass out when he stood up leading them to call EMS. He has not had any chest pain. He is feeling less SOB at rest this morning compared to last night, but still with some SOB resting and significant SOB with exertion. He has been recently sedentary as above, but otherwise no notable injury, surgery, or travel. He denies any history of malignancy. He does smoke about 1 ppd. He does have a history of venous insufficiency with associated venous ulcerations and SVT, but no prior history of DVT or PE. He generally has significant bilateral lower extremity edema and pain which fluctuates, not certain that either leg feels worse than usual. [facility] Medical History COVID Tinnitus Marijuana use Thrombosis Wears glasses Depression Alcohol use Arthritis Prostate disease Restless legs Migraine headache Smoker BiPAP (biphasic positive airway pressure) dependence Shortness of breath on exertion History of stress test Hypertension Hx of hypoglycemia Hx of migraines Hx of seasonal allergies Lipodermatosclerosis Venous stasis ulcer of ankle with fat layer exposed Chronic venous hypertension w/ulcer and inflammation involv left side Chronic venous insufficiency Seizures Home Medications ???Medication ???Instructions ???Recorded ???Last Taken ???Type blood pressure monitor #1 ea 12/12/22 Unknown Rx ibuprofen 800 mg tablet 800 mg PO BID PRN Pain 12/12/22 Unknown History tamsulosin 0.4 mg capsule (Flomax) 0.4 mg PO QHS #90 caps 05/07/24 Unknown Rx amlodipine 5 mg tablet See Rx Instructions .Route 05/27/24 Unknown Rx .COMPLEX #90 tabs escitalopram oxalate 10 mg tablet 10 mg PO DAILY #90 tabs 05/27/24 Unknown Rx (Lexapro) lisinopril 20 See Rx Instructions .Route 05/27/24 Unknown Rx mg-hydrochlorothiazi de 12.5 mg .COMPLEX #90 tabs tablet Allergy/AdvReac Type Severity Reaction Status Date / Time Penicillins Allergy Unknown UNKNOWN Verified 11/25/24 22:30 Family History Father Angina at rest Anxiety Diabetes Myocardial infarction Heart disease Hypertension Hyperlipidemia Respiratory disease Cancer esophageal Mother Cancer lung Depression Hormone disorder Seizures Osteoporosis Brother Myocardial infarction Hyperlipidemia Surgical History History of incision and drainage H/O foot surgery History of hemorrhoidectomy Hx of hand surgery History of nasal surgery Social History household members: significant other housing: house current occupational status: employed current occupation: [employer] sexually active: Yes Smoking Status: Current every day smoker tobacco type: cigarettes Electronic Cigarette Use: not used quit status: considering quitting alcohol intake: current alcohol intake frequency: holidays/special occasions only substance use type: marijuana what type of physical activity do you participate in: walking and additional details: lifting frequency: 5-6 times per week seatbelt (more content not included)... Normal [facility] Echo Complete W/ Contraston 11-26-2024 Echo Complete W/ Contrast [facility] Services [address] [place] [address] Echo Complete W/ Contrast 11/26/24 0824 MR#: [id number] Acct: [id number] Name: SUKI ADORNO Rep #: [id number] : 1960 64 From: Bib Bragg MD Attending Dr: Dr. Hemant Castillo, Status: A DM IN Ordering Dr: Nestor Chaidez DO Date: 11/26/24 Location: U Sex: M C Admitted: 11/26/24 Reason For Study: Saddle PE Procedure This was a 2D Doppler, Color Flow transthoracic echocardiogram. The study was technically difficult. Exam performed portable in patient room. Left Ventricle Normal LV size. D shaped septum in systole and diastole. Left ventricular systolic function is normal. The left ventricular ejection fraction is 60 %. No regional wall motion abnormalities noted. Right Ventricle Moderately dilated right ventricle. Moderate global right ventricular systolic dysfunction. Atria Normal left atrium. Normal right atrium. Mitral Valve Normal mitral valve. Tricuspid Valve Normal tricuspid valve. Mild (1+) tricuspid valve insufficiency. Pulmonary artery systolic pressure is 16 mmHg. Aortic Valve Trisinus/trileaflet aortic valve. Pulmonic Valve Normal pulmonic valve. Great Vessels Mild to moderately dilated aortic root. The pulmonary artery is normal size. Inferior vena cava collapse with respiration. Pericardium/Pleural No pericardial effusion. Medication Diluted definity 3.0ml given slow IV push to enhance endocardial definition. MMode/2D Measurements Calculations LVIDd: 4.3 cm IVSd: 1.2 cm Ao root diam: 4.3 cm LVIDs: 2.8 cm LVPWd: 1.2 cm RVDd: 4.7 cm FS: 35.9 % _ asc Aorta Diam: 4.2 cm LAV(MOD-bp): 51.2 ml LA A4 area: 19.6 cm2 LAV(MOD-bp) Indexed: 21.1 ml/m2 LAV(MOD-sp2): 29.1 ml LAV(MOD-sp4): 56.3 ml _ LA dimension(2D): 3.6 cm RA A4 area: 21.9 cm2 Time Measurements MV dec time: 0.34 sec Doppler Measurements Calculations MV E max cass: 39.7 cm/sec Lat Peak E' Cass: 7.3 cm/sec Med Peak E' Cass: 5.0 cm/sec MV A max cass: 75.6 cm/sec E/E' lat: 5.5 E/E' med: 8.0 MV E/A: 0.53 _ MV dec slope: 121.7 cm/sec2 Ao V2 max: 95.1 cm/sec LV V1 max: 76.7 cm/sec Ao max P.6 mmHg LV V1 max P.4 mmHg _ PA V2 max: 40.2 cm/sec TR max cass: 165.4 cm/sec TR max P.9 mmHg ECHO/Echo Complete W/ Contrast Interpretation Summary Normal LV size. Left ventricular systolic function is normal. The left ventricular ejection fraction is 60 %. Moderately dilated right ventricle. Moderate global right ventricular systolic dysfunction. D shaped septum in systole and diastole. Ordering Physician: Nestor Chaidez Referring Physician: Kelsey Jacobs Performed By: Jarrod Vera RCS 11/26/24 1112 Date Bbi Bragg MD CC: Dr. Nestor Chaidez DO; Dr. Kelsey Jacobs MD; Dr. Hemant Castillo DO Date Dictated: 11/26/24823 Date Transcribed: 11/26/24 111 Cadd Instructor: Signed Normal [facility] Emergency Department Summary on 11-26-2024 Emergency Department Summary [facility] Medical Records Department [address] [place] [address] Emergency Department Summary 11/26/24 MR#: [id number] Acct: [id number] Name: SUKI ADORNO Nkechi Rep #: [id number] : 1960 64 From: Juan Jose Knight DO PCP: Dr. Kelsey Jacobs MD Status:ADM IN Location: [place] [address] HPI History of Present Illness Chief Complaint: Shortness of Breath Informant: patient and spouse/S.O. Narrative Narrative: Patient is a 64-year-old male with past medical history of hypertension chronic venous insufficiency and tobacco abuse. He reports he smokes roughly a pack a day but denies any true diagnosis of COPD or need for supplemental oxygen. He does state that he wears CPAP at night. He reports for the past few weeks he has been having congestion drainage and cough. However over the last 1 to 2 days he feels like his symptoms have worsened. Tonight he was having shortness of breath and felt lightheaded like he was going to pass out if he did any type of minimal exertion such as standing and walking. Therefore EMS was called. EMS reports patient's pulse ox on room air was in the mid 80s. [facility] Medical History COVID Tinnitus Marijuana use Thrombosis Wears glasses Depression Alcohol use Arthritis Prostate disease Restless legs Migraine headache Smoker BiPAP (biphasic positive airway pressure) dependence Shortness of breath on exertion History of stress test Hypertension Hx of hypoglycemia Hx of migraines Hx of seasonal allergies Lipodermatosclerosis Venous stasis ulcer of ankle with fat layer exposed Chronic venous hypertension w/ulcer and inflammation involv left side Chronic venous insufficiency Seizures Home Medications ???Medication ???Instructions ???Recorded ???Last Taken ???Type blood pressure monitor #1 ea 12/12/22 Unknown Rx ibuprofen 800 mg tablet 800 mg PO BID PRN Pain 12/12/22 Unknown History tamsulosin 0.4 mg capsule (Flomax) 0.4 mg PO QHS #90 caps 05/07/24 Unknown Rx amlodipine 5 mg tablet See Rx Instructions .Route 05/27/24 Unknown Rx .COMPLEX #90 tabs escitalopram oxalate 10 mg tablet 10 mg PO DAILY #90 tabs 05/27/24 Unknown Rx (Lexapro) lisinopril 20 See Rx Instructions .Route 05/27/24 Unknown Rx mg-hydrochlorothiazi de 12.5 mg .COMPLEX #90 tabs tablet Allergy/AdvReac Type Severity Reaction Status Date / Time Penicillins Allergy Unknown UNKNOWN Verified 11/25/24 22:30 Family History Father Angina at rest Anxiety Diabetes Myocardial infarction Heart disease Hypertension Hyperlipidemia Respiratory disease Cancer esophageal Mother Cancer lung Depression Hormone disorder Seizures Osteoporosis Brother Myocardial infarction Hyperlipidemia Surgical History History of incision and drainage H/O foot surgery History of hemorrhoidectomy Hx of hand surgery History of nasal surgery Social History household members: significant other housing: house current occupational status: employed current occupation: [employer] sexually active: Yes Smoking Status: Current every day smoker tobacco type: cigarettes Electronic Cigarette Use: not used quit status: considering quitting alcohol intake: current alcohol intake frequency: holidays/special occasions only substance use type: marijuana what type of physical activity do you participate in: walking and additional details: lifting frequency: 5-6 times per week seatbelt use: always do you feel safe at home: Yes ROS ROS ED Constitutional Constitutional ED: Denies chills or fever(s) Eyes Eyes: Denies change in vision ENT ENT ED: Reports rhinorrhea and sore throat Cardiovascular Cardiovascular: Denies chest pain, palpitations or racing heartbeat Respiratory/Chest Respiratory/Chest: Reports cough and dyspnea Gastrointestinal Gastrointestinal: Denies abdominal pain, diarrhea, nausea or vomiting Genitourinary Genitourinary ED: Denies dysuria Musculoskeletal Musculoskeletal: Denies myalgias Integumentary Denies rash Neurologic Neurologic: Denies headache(s) Hematologic/Lymphati c Hematologic/Lymphati c: Denies easy bleeding or easy bruising Allergic/Immunologic Allergic/Immunologic ED: Denies mouth swelling or tongue swelling EXAM Physical Exam Const Vital Signs: 11/25/24 22:26 11/25/24 22:31 11/25/24 23:28 Temperature 99 F 98.6 F Temperature Source Oral Oral Pulse Rate 97 91 Respiratory Rate 22 H 22 H Respiratory Effort Normal Non-Labored Respiratory Depth Normal Respiratory Pattern Tachypnea Blood Pressure 119/102 H 102/63 Blood Pressure Mean 10 (more content not included)... Normal [facility] Erythrocyte distribution wid th (RBC) [Ratio]Ordered By: Nestor Chaidez on 11-26-2024 Erythrocyte distribution width (RBC) [Entitic vol] 41.1 fL 35.1-43.9 [facility] Erythrocyte distribution wid th ratioOrdered By: Nestor Chaidez on 11-26-2024 Erythrocyte distribution width (RBC) [Ratio] 12.7 % 11.6-14.6 [facility] Estimated glomerular filtrat ion rate (GFR) AmericanOrdered By: Nestor Chaidez on 11-26-2024 Estimated GFR (MDRD) Amer 83 mL/min >60 [facility] Comment on above: GFR Calc Estimation of creatinine ronaldo aranceOrdered By: Nestor Chaidez on 11-26-2024 Estimated Creatinine Clearance Calc 90.02 ml/min [facility] Glomerular filtration rate ( GFR) estimationOrdered By: Nestor Chaidez on 11-26-2024 Estimated GFR (MDRD) Non-Af Amer 68 mL/min >60 [facility] Comment on above: Non- GFR Calc Glucose measurementOrdered B y: Nestor Chaidez on 11-26-2024 Glucose [Mass/Vol] 168 mg/dL High 74-106 [facility] Comment on above: Fasting Glucose resu lt greater than or equal to 126 mg/dL suggests DIABETES MELLITUS per A.D.A. criteria. H AND P Exam - Hospitaliston 11-26-2024 H&P Exam - Hospitalist [facility] Medical Records Department [address] [place] [address] H P Exam - Hospitalist 11/26/24 0054 MR#: [id number] Acct: [id number] Name: SUKI ADORNO Rep #: [id number] : 1960 64 From: Nestor Chaidez DO PCP: Dr. Kelsey Jacobs MD Status:ADM IN Location: [facility] [id number] HPI - General General Date of Admission: 11/26/24 Date of Service: 11/26/24 Chief Complaint: Worsening shortness of breath HPI Narrative SUKI ADORNO, is a 64 M who presented to [facility] ED on 11/26/2024 with worsening shortness of breath. Patient reports feeling progressively more short of breath over the past 2 weeks. Over the past few days he has been severely short of breath with any exertion. Earlier today when he went from sitting in his chair to trying to walk across the room he cried out to his that he could not catch his breath and sat down again to rest. He then stayed in the recliner for the rest the day and when he tried to get up to go to the bedroom he again had severe shortness of breath, so EMS was called. He was placed on nonrebreather enroute with improvement in oxygen saturations and work of breathing. On arrival to the ED he was weaned down to 4 L nasal cannula and oxygen saturations remained in the mid 90s. He had borderline sinus tachycardia with low normal blood pressures and was afebrile. Labs notable for WBC count 12, otherwise unremarkable. BNP 353. Chest x-ray was unremarkable. CTA chest was obtained and showed extensive pulmonary emboli including saddle embolus with emboli extending to the bilateral lobar, segmental and subsegmental pulmonary arteries, however no evidence of right heart strain was seen. ED physician discussed with Dr. Millan who noted patient was okay for admission here. Hospitalist was then contacted for admission. I saw the patient at bedside in the ED, was present. Patient was sitting up comfortably in bed, breathing comfortably on 4 L nasal cannula and conversing normally. 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 He has had worsening right lower extremity swelling over the past few weeks. Also has chronic left foot wound and is being seen at the wound care center for this. Patient is a current smoker, smokes about 1 pack of cigarettes per day. Has not been smoking as much over the past several days. Has never been diagnosed with COPD and has never been on home oxygen. Denies any fevers or chills. No other acute concerns at this time. [facility] Medical History COVID Tinnitus Marijuana use Thrombosis Wears glasses Depression Alcohol use Arthritis Prostate disease Restless legs Migraine headache Smoker BiPAP (biphasic positive airway pressure) dependence Shortness of breath on exertion History of stress test Hypertension Hx of hypoglycemia Hx of migraines Hx of seasonal allergies Lipodermatosclerosis Venous stasis ulcer of ankle with fat layer exposed Chronic venous hypertension w/ulcer and inflammation involv left side Chronic venous insufficiency Seizures Home Medications ???Medication ???Instructions ???Recorded ???Last Taken ???Type blood pressure monitor #1 ea 12/12/22 Unknown Rx ibuprofen 800 mg tablet 800 mg PO BID PRN Pain 12/12/22 Unknown History tamsulosin 0.4 mg capsule (Flomax) 0.4 mg PO QHS #90 caps 05/07/24 Unknown Rx amlodipine 5 mg tablet See Rx Instructions .Route 05/27/24 Unknown Rx .COMPLEX #90 tabs escitalopram oxalate 10 mg tablet 10 mg PO DAILY #90 tabs 05/27/24 Unknown Rx (Lexapro) lisinopril 20 See Rx Instructions .Route 05/27/24 Unknown Rx mg-hydrochlorothiazi de 12.5 mg .COMPLEX #90 tabs tablet Allergy/AdvReac Type Severity Reaction Status Date / Time Penicillins Allergy Unknown UNKNOWN Verified 11/25/24 22:30 Family History Father Angina at rest Anxiety Diabetes Myocardial infarction Heart disease Hypertension Hyperlipidemia Respiratory disease Cancer esophageal Mother Cancer lung Depression Hormone disorder Seizures Osteoporosis Brother Myocardial infarction Hyperlipidemia Surgical History History of incision and drainage H/O foot surgery History of hemorrhoidectomy Hx of hand surgery History of nasal surgery Social History household members: significant other housing: house current occupational status: employed current occupation: [employer] sexually active: Yes Smoking Status: Current every day smoker tobacco type: cigarettes Electronic Cigarette Use: not used quit status: considering harpreet (more content not included)... Normal [facility] Hematocrit Auto (Bld) [Volum e fraction]Ordered By: Nestor Chaidez on 11-26-2024 Hematocrit (Bld) [Volume fraction] 48.0 % 40-54 [facility] Hemoglobin measurementOrdere d By: Nestor Chaidez on 11-26-2024 Hemoglobin (Bld) [Mass/Vol] 16.2 g/dL 13.0-16.5 [facility] L501.4020on 11-26-2024 TROPONIN-I HS 473 pg/mL Invalid Interpretation Code 3.0-78.0 [facility] Comment on above: Order Comment: 'TROP ' Serial specimen #1, #2 or #3: 1 Result Comment: Crit ical Result(s) Called at: 03:55:55 11/26/2024 by: Toan Vincent. TO TOI HAQUE PCU. Results read back by same. Please Note: New Test Units and Gender Specific Reference Ranges. For more information see Policy Stat Procedure [place] High Sensitivity Troponin (TNIH) and attachments. Performed By: #### L 300.4310, L300.3900 #### [facility] [address] [place], [place], [id number] Lactic Acidon 11-26-2024 Lactate [Moles/Vol] 1.4 mmol/L Normal 0.4-1.9 [facility] Comment on above: Order Comment: Y Performed By: #### L 300.4310, L300.3900 #### [facility] [address] [facility] [address] [place], [place], [id number] Lactic acid measurementOrder ed By: Juan Jose Knight on 11-26-2024 Lactate [Moles/Vol] 1.4 mmol/L 0.4-2.0 [facility] MCV (mean corpuscular volume ) determinationOrdered By: Nestor Chaidez on 11-26-2024 MCV (RBC) [Entitic vol] 87.6 fL 80-94 [facility] Mean corpuscular hemoglobin (MCH) determinationOrdered By: Nestor Chaidez on 11-26-2024 MCH (RBC) [Entitic mass] 29.6 pg 27.0-32.0 [facility] Mean corpuscular hemoglobin concentration (MCHC) determinationOrdered By: Nestor Chaidez on 11-26-2024 MCHC (RBC) [Mass/Vol] 33.8 g/dL 32-36 [facility] Mean platelet volume determi nationOrdered By: Nestor Chaidez on 11-26-2024 Platelet mean volume (Bld) [Entitic vol] 10.4 fL 6.2-12.0 [facility] Operative Reporton Operative Report [facility] Medical Records Department [address] [place] [address] Operative Report 11/26/24 1651 MR#: [id number] Acct: [id number] Name: SUKI ADORNO Rep #: [id number] : 1960 64 From: Shashank Millan MD PCP: Dr. Kelsey Jacobs MD Status:ADM IN [id number] Report (Standard) Operative Information Date of Procedure: 11/26/24 Pre-Operative Diagnosis: Submassive pulmonary embolism, saddle Post-Operative Diagnosis: Same Surgery/Procedure Performed: Percutaneous mechanical thrombectomy of the bilateral pulmonary arteries Selective pulmonary angiogram boiler blower: No Type of Anesthesia: Local and Sedation,Conscious Procedure Start Time: 13:20 Procedure Stop Time: 15:30 Select all DRAINS/GRAFTS/IMPLAN TS that apply: None Estimated Blood Loss: 75 Specimen collected: No Description of surgery: HPI: Patient is a 64-year-old male who presented with subacute shortness of breath with acute worsening over the prior 48 hours. He had a CT angiography in the emergency department which revealed saddle embolus with evidence of right heart strain and he had positive biomarkers and significant oxygen requirement. Clinical and radiographic findings placed him as a submassive pulmonary embolism. He is taken now for urgent pulmonary thrombectomy. Description of procedure: Upon obtaining form consent and verification correct patient procedure site the patient was taken to the [facility] he was positioned prepped and draped in usual sterile fashion. Timeouts performed conscious sedation ministered Versed and fentanyl. Skin overlying the right common femoral vein was then anesthetized with 1% lidocaine the vessel accessed the micropuncture needle wire under ultrasound guidance. This then exchanged for micropuncture sheath through which hand-injection ilio caval venogram was performed revealing satisfactory positioning with no extravasation or dissection. This also revealed no thrombus or obstruction of the right iliac vein system. Through the micropuncture sheath a J-wire was advanced and the micropuncture sheath exchanged for an 8 Mozambican sheath. Through the 8 Mozambican sheath an angled pigtail catheter and a Leonid wire were advanced navigating the inferior vena cava into the right atrium and ultimately the right ventricle. With some redirection we are able to navigate into the ventricular outflow tract and ultimately into the main pulmonary artery. Digital subtraction right pulmonary angiogram was performed which revealed significant thrombus in the distal vessel with poor filling of the segmental branches. Using multiple configuration catheters and combinations with wires we ultimately were able to selectively cannulate the right pulmonary artery and advanced into the more distal segmental branches. Once the catheter was advanced the Leonid wire was then exchanged for a short tipped Amplatz wire. The catheter and 8 Mozambican sheath then exchanged for the T24 Inari thrombectomy sheath advanced into the vena cava under fluoroscopic guidance. The patient was then heparinized allowed to circulate for 3 minutes with subsequent heparin redosing every 30 minutes. Through the sheath we then advanced the T24 catheter positioning it in the distal right pulmonary artery. Multiple aspirations were performed with significant thrombus return. The catheter was then repositioned more proximally and further aspiration was performed with additional thrombus obtained. Subtraction pulmonary angiogram was then performed selectively of the right pulmonary artery which revealed resolution of nearly all of the thrombus with only minimal remaining in some of the superior branches. It was felt that no further intervention was required on the right so we then redirected our sheath and catheter into the proximal left pulmonary artery. Subtraction pulmonary angiogram revealed the inferior segmental branches were totally occluded with some reconstitution distally and at the superior aspect and the portion that was the extension of the saddle embolus had resolved. These inferior branches on the CT appear to be separate thrombus segment. Using the T16 curve catheter we then advanced into the proximal segment of the occluded branch and performed multiple aspirations. Again significant thrombus was returned and the catheter was then repositioned for further aspirations. Once no further thrombus was returned a completion left pulmonary artery angiogram was performed revealed satisfactory resolution of any remaining thrombus on the left side. See no need for any further intervention wires and catheter then withdrawn. A silk suture was then placed at the access site and the sheath withdrawn with manual pressure was over 10 minutes until hemostasis was obtained. The patient was then taken to the PCU for bedrest and recovery. Surgical Findings: See above Compli (more content not included)... Normal [facility] Partial Thromboplast Timeon 11-26-2024 aPTT Coag (Bld) [Time] 175.5 s Invalid Interpretation Code 24.1-36.2 [facility] Comment on above: Result Comment: CRIT ICAL VALUE CALLED TO XI DAVIS 11/26/24 8709 Teri Raphael. RESULTS READ BACK BY SAME. Performed By: #### L 751.4455 ####[facility] [address] [place], [address] aPTT Coag (Bld) [Time] 29.7 s Normal 24.1-36.2 [facility] Comment on above: Performed By: #### L 501.5200, L500.2500, L503.6620, L100.0100 #### [facility] [address] [place], [address] aPTT Coag (Bld) [Time] 26.3 s Normal 24.1-36.2 [facility] Comment on above: Performed By: #### L 300.4310, L300.3900 #### [facility] [address] [place], [address] Platelet countOrdered By: Lb Chaidez on 11-26-2024 Platelets (Bld) [#/Vol] 166 10*3/uL 150-450 [facility] Potassium measurementOrdered By: Nestor Chaidez on 11-26-2024 Potassium [Moles/Vol] 4.6 mmol/L 3.5-5.1 [facility] Procalcitoninon 11-26-2024 Procalcitonin 0.04 ng/mL Normal 0.00-0.09 [facility] Comment on above: Result Comment: A procalcitonin (PCT) level above 2.0 ng/mL on the first day of ICU admission is associated with a high risk for progression to severe sepsis and/or septic shock. A PCT level below 0.5 ng/mL on the first day of ICU admission is associated with a low risk for progression to severe and/or septic shock. Note: Concentrations <0.5 ng/mL do not exclude an infection on account of localized infections (without systemic signs) which can be associated with such low concentrations, or a systemic infection in its initial stages (<6 hours). Furthermore, increased procalcitonin can occur without infection. PCT concentrations between 0.5 and 2.0 ng/mL should be interpreted taking into account the patient's history. It is recommended to retest PCT within 6-24 hours if any concentrations <2 ng/mL are obtained. Performed By: #### L 509.7000 ####[facility] [address] [place], [address] Procalcitonin [Mass/Vol]Orde red By: Nestor Chaidez on 11-26-2024 Procalcitonin 0.04 ng/mL 0.00-0.09 [facility] Comment on above: A procalcitonin (PCT ) level above 2.0 ng/mL on the first day of ICU admission is associated with a high risk for progression to severe sepsis and/or septic shock. A PCT level below 0.5 ng/mL on the first day of ICU admission is associated with a low risk for progression to severe and/or septic shock. Note: Concentrations <0.5 ng/mL do not exclude an infection on account of localized infections (without systemic signs) which can be associated with such low concentrations, or a systemic infection in its initial stages (<6 hours). Furthermore, increased procalcitonin can occur without infection. PCT concentrations between 0.5 and 2.0 ng/mL should be interpreted taking into account the patient's history. It is recommended to retest PCT within 6-24 hours if any concentrations <2 ng/mL are obtained. Prothrombin Time w/INRon INR Coag (PPP) [Relative time] 1.1 {INR} Normal [facility] Comment on above: Performed By: #### L 300.4310, L300.3900 #### [facility] [address] [place], [address] PT Coag (PPP) [Time] 14.1 s Normal 11.7-14.9 [facility] Comment on above: Performed By: #### L 300.4310, L300.3900 #### [facility] [address] [place], [address] RBC Auto (Bld) [#/Vol]Ordere d By: Nestor Chaidez on 11-26-2024 RBC (Bld) [#/Vol] 5.48 10*6/uL 4.6-6.2 [facility] Serum anion gap measurementO rdered By: Nestor Chaidez on 11-26-2024 Anion gap [Moles/Vol] 8 mmol/L 5-15 [facility] Serum or plasma calcium bola urement (mass/volume)Ordered By: Nestor Chaidez on 11-26-2024 Calcium [Mass/Vol] 8.5 mg/dL 8.5-10.1 [facility] Serum or plasma creatinine m easurement (mass/volume)Ordered By: Nestor Chaidez on 11-26-2024 Creatinine [Mass/Vol] 1.15 mg/dL 0.70-1.30 [facility] Comment on above: The validity of the calculated GFR & GFRAA in patients over 70 years has not been determined. Clinical correlation is essential. Serum or plasma urea nitroge n measurement (mass/volume)Ordered By: Nestor Chaidez on 11-26-2024 Urea nitrogen [Mass/Vol] 24 mg/dL High 7-18 [facility] Sodium levelOrdered By: Magdaleno Chaidez on 11-26-2024 Sodium [Moles/Vol] 140 mmol/L 136-145 [facility] Troponin IOrdered By: Juan Jose Knight on 11-26-2024 Troponin I High Sensitivity 473 pg/mL High 3.0-78.0 [facility] Comment on above: Critical Result(s) C alled at: 03:55:55 11/26/2024 by: Toan Vincent. TO TOI HAQUE PCU. Results read back by same. Please Note: New Test Units and Gender Specific Reference Ranges. For more information see Policy Stat Procedure [place] High Sensitivity Troponin (TNIH) and attachments. Venous Duplex US - Truong Extre mon 11-26-2024 Venous Duplex US - Truong Extrem [facility] Cardiovascular Services [address] [place] [address] Venous Duplex US - Truong Extrem 11/26/24 1025 MR#: [id number] Acct: [id number] Name: SUKI ADORNO Rep #: [id number] : 1960 64 From: Shashank Millan MD Attending Dr: Dr. Hemant Castillo DO Status: A DM IN Ordering Dr: Nestor Chaidez DO Date: 11/26/24 Location: PCU Sex: M C Admitted: 11/26/24 Reason For Study: PE RIGHT LEFT GSV and ASV are dilated and NONCOMPRESSIBLE GSV is normal. throughout portions of right thigh. CFV is compressible, spontaneous, phasic, Varicosity is dilated and NONCOMPRESSIBLE in competent, and demonstrates normal the right thigh. augmentation. CFV is patent and compressible. FV is compressible, spontaneous, phasic, FV is dilated and NONCOMPRESSIBLE with mixed competent and demonstrates normal intraluminal echoes. Finding consistent with augmentation. Acute on Chronic DVT. POP V is compressible, spontaneous, phasic, POP V is PARTIALLY COMPRESSIBLE with competent and demonstrates normal pulsatile flow noted and intraluminal echoes. augmentation. Acute deep vein thrombosis is noted in the T/P Trunk is compressible. Gastrocnemius V. It is dilated and PTV is compressible. NONCOMPRESSIBLE. LT PerV is compressible. T/P Trunk is compressible. PTV is compressible. RT PerV is compressible. Procedure This is a venous duplex using B-mode, color flow and spectral Doppler. Exam performed in department. The exam was diagnostic. A preliminary report was called and/or faxed to Dr. Millan. VL/Venous Duplex US - Truong Extrem Interpretation Summary Acute on chronic deep vein thrombosis is noted in the right femoral vein. Acute deep vein thrombosis noted in the right gastrocnemius vein. Chronic deep vein thrombosis noted in the right popliteal vein. Acute superficial vein thrombosis noted in the right great saphenous vein and accessory saphenous vein in the thigh and associated varicosities. Deep veins of the left lower extremity are patent and compressible segmentally. There is no evidence of left lower extremity deep vein thrombosis. The left great saphenous vein appears patent and compressible segmentally Ordering Physician: Nestor Chaidez Referring Physician: Kelsey Jacobs Performed By: Domenic Suggs, RVT 11/26/24 1826 Date Shashank Millan MD CC: Dr. Nestor Chaidez DO; Dr. Kelsey Jacobs MD; Dr. Hemant Castillo DO Date Dictated: 11/26/24 1025 Date Transcribed: 11/26/24 1826 Cadd Instructor: Signed Normal [facility] White blood cell (WBC) count Ordered By: Nestor Chaidez on 11-26-2024 WBC (Bld) [#/Vol] 8.3 10*3/uL 4.4-11.0 [facility] 12 Lead EKGon 11-25-2024 12 Lead EKG [facility] [address] [place] [address] 12 Lead EKG 11/25/24 2242 MR#: [id number] Acct: [id number] Name: SUKI ADORNO Rep #: [id number] : 1960 64 From: Suresh Quintana MD Attending Dr: Dr. Hemant Castillo DO Status: A DM IN Ordering Dr: Juan Jose Knight DO Date: 11/25/24 Location: [facility] Sex: M C Admitted: 11/26/24 Test Reason : SOB Blood Pressure : */* mmHG Vent. Rate : 91 BPM Atrial Rate : 91 BPM P-R Int : 178 ms QRS Dur : 92 ms QT Int : 372 ms P-R-T Axes : 47 33 31 degrees QTcB Int : 457 ms Normal sinus rhythm T wave abnormality, consider anterior ischemia Abnormal ECG Confirmed by Suresh Quintana ([id number]), technical writer and editor ÁLVARO OROZCO ([id number]) on 11/26/2024 10:22:46 AM Referred By: FOREIGN Confirmed By: Suresh Quintana 11/26/24 1022 Date Suresh Quintana MD CC: Dr. Kelsey Jacobs MD; Dr. Hemant Castillo DO; Juan Jose Knight DO Signed Normal [facility] Absolute neutrophil countOrd ered By: Juan Jose Knight on 11-25-2024 Neutrophils (Bld) [#/Vol] 6.7 10*3/uL 2.0-7.7 [facility] BNP (brain natriuretic pepti de measurement)Ordered By: Juan Jose Knight on 11-25-2024 Natriuretic peptide B (Bld) [Mass/Vol] 353.3 pg/mL High 0-100 [facility] BNP,B-Type NATRIURETIC PEPTI Graciela 11-25-2024 Natriuretic peptide B (Bld) [Mass/Vol] 353.3 pg/mL High 0-100 [facility] Comment on above: Performed By: #### L 501.5200, L500.2500, L503.6620, L100.0100 #### [facility] [address] [place], [address] Basic Metabolic Profile (BMP )on 11-25-2024 BUN/CRE 17.5 RATIO Normal 10-20 [facility] Comment on above: Performed By: #### L 501.5200, L500.2500, L503.6620, L100.0100 #### [facility] [address] [place], [address] CA,Total 8.6 mg/dL Normal 8.5-10.1 [facility] Comment on above: Performed By: #### L 501.5200, L500.2500, L503.6620, L100.0100 #### [facility] [address] [place], [address] Chloride [Moles/Vol] 104 mmol/L Normal 98-107 [facility] Comment on above: Performed By: #### L 501.5200, L500.2500, L503.6620, L100.0100 #### [facility] [address] [place], [address] CO2 [Moles/Vol] 26.0 mmol/L Normal 21.0-32.0 [facility] Comment on above: Performed By: #### L 501.5200, L500.2500, L503.6620, L100.0100 #### [facility] [address] [place], [address] Creatinine [Mass/Vol] 1.20 mg/dL Normal 0.70-1.30 [facility] Comment on above: Result Comment: The validity of the calculated GFR GFRAA in patients over 70 years has not been determined. Clinical correlation is essential. Performed By: #### L 501.5200, L500.2500, L503.6620, L100.0100 #### [facility] [address] [place], [address] ECRCL 86.81 ml/min Normal [facility] Comment on above: Performed By: #### L 501.5200, L500.2500, L503.6620, L100.0100 #### [facility] [address] [place], [address] EST GFR - AA 79 mL/min Normal >60 [facility] Comment on above: Result Comment: Afri can Moroccan GFR Calc Performed By: #### L 501.5200, L500.2500, L503.6620, L100.0100 #### [facility] [address] [place], [address] GAP 7 Normal 5-15 [facility] [facility] Comment on above: Performed By: #### L 501.5200, L500.2500, L503.6620, L100.0100 #### [facility] [address] [place], [address] GFR/1.73 sq M.predicted among non-blacks MDRD (S/P/Bld) [Vol rate/Area] 65 mL/min/{1.73_m2} Normal >60 [facility] Comment on above: Result Comment: Non- GFR Calc Performed By: #### L 501.5200, L500.2500, L503.6620, L100.0100 #### [facility] [address] [place], [address] Glucose [Mass/Vol] 135 mg/dL High 74-106 [facility] Comment on above: Result Comment: Fast ing Glucose result greater than or equal to 126 mg/dL suggests DIABETES MELLITUS per A.D.A. criteria. Performed By: #### L 501.5200, L500.2500, L503.6620, L100.0100 #### [facility] [address] [place], [address] Potassium [Moles/Vol] 3.5 mmol/L Normal 3.5-5.1 [facility] Comment on above: Performed By: #### L 501.5200, L500.2500, L503.6620, L100.0100 #### [facility] [address] [place], [address] Sodium [Moles/Vol] 137 mmol/L Normal 136-145 [facility] Comment on above: Performed By: #### L 501.5200, L500.2500, L503.6620, L100.0100 #### [facility] [address] [place], [address] Urea nitrogen [Mass/Vol] 21 mg/dL High 7-18 [facility] Comment on above: Performed By: #### L 501.5200, L500.2500, L503.6620, L100.0100 #### [facility] [address] [place], [address] Basophil percentageOrdered B y: Juan Jose Knight on 11-25-2024 Basophils/100 WBC (Bld) 0.6 % 0-1 [facility] CBC W/Diff, Automatedon Absolute Lymph 4.02 X10 3/uL Normal 0.83-4.51 [facility] Comment on above: Performed By: #### L 501.5200, L500.2500, L503.6620, L100.0100 #### [facility] [address] [place], [address] Absolute Neut 6.7 X10 3/uL Normal 2.0-7.7 [facility] Comment on above: Performed By: #### L 501.5200, L500.2500, L503.6620, L100.0100 #### [facility] [address] [place], [address] Basophils/100 WBC (Bld) 0.6 % Normal 0-1 [facility] Comment on above: Performed By: #### L 501.5200, L500.2500, L503.6620, L100.0100 #### [facility] [address] [place], [address] Eosinophils/100 WBC (Bld) 2.4 % Normal 0-5 [facility] Comment on above: Performed By: #### L 501.5200, L500.2500, L503.6620, L100.0100 #### [facility] [address] [place], [address] Erythrocyte distribution width (RBC) [Ratio] 12.9 % Normal 11.6-14.6 [facility] Comment on above: Performed By: #### L 501.5200, L500.2500, L503.6620, L100.0100 #### [facility] [address] [place], [address] Hematocrit (Bld) [Volume fraction] 48.9 % Normal 40-54 [facility] Comment on above: Performed By: #### L 501.5200, L500.2500, L503.6620, L100.0100 #### [facility] [address] [place], [address] Hemoglobin (Bld) [Mass/Vol] 16.6 g/dL High 13.0-16.5 [facility] Comment on above: Performed By: #### L 501.5200, L500.2500, L503.6620, L100.0100 #### [facility] [address] [place], [address] IG% 0.300 Normal 0.0-0.9 [facility] Comment on above: Result Comment: IG% - Immature Granulocytes (promyelocytes, myelocytes and metamyelocytes) > 1% indicates that a LEFT SHIFT is Present. Performed By: #### L 501.5200, L500.2500, L503.6620, L100.0100 #### [facility] [address] [place], [address] Lymphocytes/100 WBC (Bld) 33.3 % Normal 19-41 [facility] Comment on above: Performed By: #### L 501.5200, L500.2500, L503.6620, L100.0100 #### [facility] [address] [place], [address] MCH (RBC) [Entitic mass] 29.7 pg Normal 27.0-32.0 [facility] Comment on above: Performed By: #### L 501.5200, L500.2500, L503.6620, L100.0100 #### [facility] [address] [place], [address] MCHC (RBC) [Mass/Vol] 33.9 g/dL Normal 32-36 [facility] Comment on above: Performed By: #### L 501.5200, L500.2500, L503.6620, L100.0100 #### [facility] [address] [place], [address] MCV (RBC) [Entitic vol] 87.6 fL Normal 80-94 [facility] Comment on above: Performed By: #### L 501.5200, L500.2500, L503.6620, L100.0100 #### [facility] [address] [place], [address] Monocytes/100 WBC (Bld) 7.6 % Normal 0-10 [facility] Comment on above: Performed By: #### L 501.5200, L500.2500, L503.6620, L100.0100 #### [facility] [address] [place], [address] Neutrophils/100 WBC (Bld) 55.8 % Normal 47-70 [facility] Comment on above: Performed By: #### L 501.5200, L500.2500, L503.6620, L100.0100 #### [facility] [address] [place], [address] Nucleated RBC (Bld) [#/Vol] 0 10*3/uL Normal 0-5 [facility] Comment on above: Performed By: #### L 501.5200, L500.2500, L503.6620, L100.0100 #### [facility] [address] [place], [address] Platelet mean volume (Bld) [Entitic vol] 10.7 fL Normal 6.2-12.0 [facility] Comment on above: Performed By: #### L 501.5200, L500.2500, L503.6620, L100.0100 #### [facility] [address] [place], [address] Platelets (Bld) [#/Vol] 189 10*3/uL Normal 150-450 [facility] Comment on above: Performed By: #### L 501.5200, L500.2500, L503.6620, L100.0100 #### [facility] [address] [place], [address] RBC (Bld) [#/Vol] 5.58 10*6/uL Normal 4.6-6.2 [facility] Comment on above: Performed By: #### L 501.5200, L500.2500, L503.6620, L100.0100 #### [facility] [address] [place], [address] RDW SD 41.0 fl Normal 35.1-43.9 [facility] Comment on above: Performed By: #### L 501.5200, L500.2500, L503.6620, L100.0100 #### [facility] [address] [place], [address] WBC (Bld) [#/Vol] 12.1 10*3/uL High 4.4-11.0 [facility] Comment on above: Performed By: #### L 501.5200, L500.2500, L503.6620, L100.0100 #### [facility] [address] [place] [place], [address] Chest PA and Lateralon 11-25 Chest PA and Lateral [facility] [address] [place] [address] Chest PA and Lateral MR#: [id number] Acct: [id number] Name: SUKI ADORNO Rep #: [id number] : 1960 M 64 From: Fausto Moseley MD PCP: Dr. Kelsey Jacobs MD Status: [facility] Study: Chest PA and Lateral Date of Exam: 11/25/24 Exam# [id number] Ordering Dr: Juan Jose Knight DO [id number] INDICATION: cough EXAMINATION/TECHNIQU E: X-RAY - XR Chest 2 Views COMPARISON: 03/20/2021. ____ FINDINGS: LINES/DEVICES: None. LUNGS: No consolidation or evidence of an effusion. No evidence of edema or a pneumothorax. MEDIASTINUM AND CARDIOVASCULAR STRUCTURES: Cardiac silhouette is normal in size and contour. Mediastinum is unremarkable. BONES AND SOFT TISSUES: No acute abnormality. ___ RAD/Chest PA and Lateral IMPRESSION: No evidence of cardiopulmonary disease. Electronically Signed: Fausto Moseley DO at 0:38 EST , CC: Dr. Kelsey Jacobs MD; Juan Jose Knight DO Cadd Instructor: Signed Normal [facility] Eosinophil percentageOrdered By: Juan Jose Knight on 11-25-2024 Eosinophils/100 WBC (Bld) 2.4 % 0-5 [facility] Immature granulocytes/100 WB C Auto (Bld)Ordered By: Juan Jose Knight on 11-25-2024 Immature granulocytes/100 WBC (Bld) 0.300 % 0.0-0.9 [facility] Comment on above: IG% - Immature Granu locytes (promyelocytes, myelocytes and metamyelocytes) > 1% indicates that a LEFT SHIFT is Present. Influenza virus A and B and SARS-CoV-2 (COVID-19) and Respiratory syncytial virus RNAOrdered By: Juan Jose Knight on 11-25-2024 SARS-CoV-2 (COVID-19) RNA RYAN+probe Ql (Unsp spec) [facility] International normalized rat io (INR) calculationOrdered By: Juan Jose Knight on 11-25-2024 INR Coag (Bld) [Relative time] 1.1 {INR} [facility] Lymphocytes Auto (Unsp spec) [#/Vol]Ordered By: Juan Jose Knight on 11-25-2024 Lymphocytes (Bld) [#/Vol] 4.02 10*3/uL 0.83-4.51 [facility] Lymphocytes/100 WBC Auto (Un sp spec)Ordered By: Juan Jose Knight on 11-25-2024 Lymphocytes/100 WBC (Bld) 33.3 % 19-41 [facility] M100.678on 11-25-2024 M100.678 Pending SARS-CoV-2 (COVID 19) Negative INFLUENZA A Negative INFLUENZA B Negative RSV PCR Negative Normal [facility] Comment on above: Performed By: #### M 100.678 ####[facility] [address] [place], [address] Magnesiumon 11-25-2024 Magnesium [Mass/Vol] 2.4 mg/dL Normal 1.6-2.6 [facility] Comment on above: Performed By: #### L 501.5200, L500.2500, L503.6620, L100.0100 #### [facility] [address] [place], [address] Magnesium measurementOrdered By: Juan Jose Knight on 11-25-2024 Magnesium [Mass/Vol] 2.4 mg/dL 1.6-2.6 [facility] Monocyte percentageOrdered B y: Juan Jose Knight on 11-25-2024 Monocytes/100 WBC (Bld) 7.6 % 0-10 [facility] Neutrophil percentageOrdered By: Juan Jose Knight on 11-25-2024 Neutrophils/100 WBC (Bld) 55.8 % 47-70 [facility] Nucleated red blood cell per centageOrdered By: Juan Jose Knight on 11-25-2024 Nucleated RBC/100 WBC (Bld) [Ratio] 0 % 0-5 [facility] Prothrombin timeOrdered By: Juan Jose Knight on 11-25-2024 PT Coag (PPP) [Time] 14.1 s 11.7-14.9 [facility] Basophil percentageOrdered B y: Dr. Jacobs on 04-09-2023 Testosterone [Mass/Vol] 220 ng/dL 264-916 [facility] Comment on above: Adult male reference interval is based on a population ofhealthy nonobese males (BMI <30) between 19 and 39 yearsold. jesus Sorenson.al. JCEM 2017,102;8683-7933. PMID:[id number]. Free testosterone percentage Ordered By: Dr. Jacobs on 04-09-2023 Testosterone Free/Testosterone.total [Mass fraction] 1.85 % 1.50-4.20 [facility] Comment on above: Performed at: [facility] - [facility] [id number] [place], [place] [id number] Director: Jerome Lucas PhD, Phone: [phone] at: - [facility] [id number] [place], [place] [id number] Director: Chanelle Ojeda MD, Phone: [phone] No Panel InformationOrdered By: Dr. Jacobs on 04-09-2023 Prostate Specific Antigen Total 2.50 ng/mL 0.0-4.0 [facility] Comment on above: This test was perfor med using the TPSA assay method for the[employer] chemistry system. Values obtained with differentassay methods cannot be used interchangably.When changing PSA assays in the course of monitoring apatient, additional sequential testing should be carriedout to confirm baseline values. Serum or plasma testosterone free measurement (mass/volume)Ordered By: Dr. Jacobs on 04-09-2023 Testosterone Free [Mass/Vol] 4.07 ng/dL 5.00-21.00 [facility] Basophil percentageOrdered B y: Dr. Brooks on 02-26-2023 Chloride [Moles/Vol] 103 mmol/L 98-107 [facility] Glucose [Mass/Vol] 97 mg/dL 74-106 [facility] Potassium [Moles/Vol] 4.0 mmol/L 3.5-5.1 [facility] Sodium [Moles/Vol] 136 mmol/L 136-145 [facility] WBC (Bld) [#/Vol] 6.8 10*3/uL 4.4-11.0 [facility] Blood erythrocytes count (nu mber/volume)Ordered By: Dr. Brooks on 02-26-2023 RBC (Bld) [#/Vol] 5.49 10*6/uL 4.6-6.2 [facility] Blood hemoglobin measurement (mass/volume)Ordered By: Dr. Brooks on 02-26-2023 Hemoglobin (Bld) [Mass/Vol] 16.3 g/dL 13.0-16.5 [facility] Blood platelet mean volumeOr dered By: Dr. Brooks on 02-26-2023 Platelet mean volume (Bld) [Entitic vol] 10.5 fL 6.2-12.0 [facility] Determination of erythrocyte mean corpuscular volume (MCV)Ordered By: Dr. Brooks on 02-26-2023 MCV (RBC) [Entitic vol] 88.7 fL 80-94 [facility] Hematocrit Auto (Bld) [Volum e fraction]Ordered By: Dr. Brooks on 02-26-2023 Hematocrit (Bld) [Volume fraction] 48.7 % 40-54 [facility] - Chemistry and C hemistry - challengeOrdered By: Dr. Brooks on 02-26-2023 CO2 [Moles/Vol] 27.0 mmol/L 21.0-32.0 [facility] Urea nitrogen/Creatinine [Mass ratio] 21.7 mg/mg 10-20 [facility] - Hematology and Cell countsOrdered By: Dr. Brooks on 02-26-2023 Erythrocyte distribution width (RBC) [Entitic vol] 42.1 fL 35.1-43.9 [facility] Erythrocyte distribution width (RBC) [Ratio] 12.9 % 11.6-14.6 [facility] MCH (RBC) [Entitic mass] 29.7 pg 27.0-32.0 [facility] MCHC Auto (RBC) [Mass/Vol]Or dered By: Dr. Brooks on 02-26-2023 MCHC (RBC) [Mass/Vol] 33.5 g/dL 32-36 [facility] No Panel InformationOrdered By: Dr. Brooks on 02-26-2023 Estimated GFR (MDRD) Amer 101 mL/min >60 [facility] Comment on above: GFR Calc Estimated GFR (MDRD) Non-Af Amer 84 mL/min >60 [facility] Comment on above: Non- GFR Calc Platelets bldOrdered By: Dr. Brooks on 02-26-2023 Platelets (Bld) [#/Vol] 226 10*3/uL 150-450 [facility] Serum or plasma calcium bola urement (mass/volume)Ordered By: Dr. Brooks on 02-26-2023 Calcium [Mass/Vol] 8.6 mg/dL 8.5-10.1 [facility] Serum or plasma creatinine m easurement (mass/volume)Ordered By: Dr. Brooks on 02-26-2023 Creatinine [Mass/Vol] 0.97 mg/dL 0.70-1.30 [facility] Comment on above: The validity of the calculated GFR & GFRAA in patients over 70 years has not been determined. Clinical correlation is essential. Serum or plasma urea nitroge n measurement (mass/volume)Ordered By: Dr. Brooks on 02-26-2023 Urea nitrogen [Mass/Vol] 21 mg/dL 7-18 [facility] Thin prep Papanicolaou smear with manual screeningOrdered By: Dr. Brooks on 02-26-2023 Thin prep Papanicolaou smear with manual screening 6 5-15 [facility] Basophil percentageOrdered B y: Dr. Jacobs on 12-13-2022 Bilirubin [Mass/Vol] 0.40 mg/dL 0.20-1.00 [facility] Comment on above: For patients on eltr ombopag therapy, use of Dimension [place] TBIL is not recommended. Chloride [Moles/Vol] 103 mmol/L 98-107 [facility] Cholesterol [Mass/Vol] 175 mg/dL <200 [facility] Comment on above: <200 mg/dL Desirable 200-240 mg/dL Borderline >240 mg/dL High Risk Glucose [Mass/Vol] 97 mg/dL 74-106 [facility] Potassium [Moles/Vol] 4.4 mmol/L 3.5-5.1 [facility] Protein [Mass/Vol] 7.6 g/dL 6.4-8.2 [facility] Sodium [Moles/Vol] 140 mmol/L 136-145 [facility] Triglyceride [Mass/Vol] 184 mg/dL <199 [facility] Comment on above: The drugs N-Acetylcy steine and Metamizole may falsely depress this assay.Serum Triglycerides Reference Interval Normal <150 mg/dL Borderline high 150 - 199 mg/dL High 200 - 499 mg/dL Very High > or = 500 mg/dL Laboratory - Chemistry and C hemistry - challengeOrdered By: Dr. Jacobs on 12-13-2022 ALP [Catalytic activity/Vol] 97 U/L 45-117 [facility] ALT [Catalytic activity/Vol] 40 U/L 16-61 [facility] CO2 [Moles/Vol] 29.0 mmol/L 21.0-32.0 [facility] Globulin (S) [Mass/Vol] 4.0 g/dL 2.2-4.2 [facility] Urea nitrogen/Creatinine [Mass ratio] 16.3 mg/mg 10-20 [facility] No Panel InformationOrdered By: Dr. Jacobs on 12-13-2022 Estimated Creatinine Clearance Calc 70.10 ml/min [facility] Estimated GFR (MDRD) Amer 77 mL/min >60 [facility] Comment on above: GFR Calc Estimated GFR (MDRD) Non-Af Amer 64 mL/min >60 [facility] Comment on above: Non- GFR Calc Serum or plasma albumin bola urement (mass/volume)Ordered By: Dr. Jacobs on 12-13-2022 Albumin [Mass/Vol] 3.6 g/dL 3.2-5.0 [facility] Serum or plasma albumin/glob ulin mass ratioOrdered By: Dr. Jacobs on 12-13-2022 Albumin/Globulin [Mass ratio] 0.9 {ratio} 0.9-2.4 [facility] Serum or plasma calcium bola urement (mass/volume)Ordered By: Dr. Jacobs on 12-13-2022 Calcium [Mass/Vol] 8.9 mg/dL 8.5-10.1 [facility] Serum or plasma cholesterol in HDL measurement (mass/volume)Ordered By: Dr. Jacobs on 12-13-2022 Cholesterol in HDL [Mass/Vol] 42 mg/dL >40 [facility] Comment on above: The drugs N-Acetylcy steine and Metamizole may falsely depress this assay. Reference Range HDL <40 mg/dL Low HDL Cholesterol HDL >or= 60 mg/dL High HDL Cholesterol Serum or plasma cholesterol in VLDL measurement (mass/volume)Ordered By: Dr. Jacobs on 12-13-2022 Cholesterol in VLDL [Mass/Vol] 37 mg/dL 5-40 [facility] Serum or plasma creatinine m easurement (mass/volume)Ordered By: Dr. Jacobs on 12-13-2022 Creatinine [Mass/Vol] 1.23 mg/dL 0.70-1.30 [facility] Comment on above: The validity of the calculated GFR & GFRAA in patients over 70 years has not been determined. Clinical correlation is essential. Serum or plasma low density lipoprotein (LDL) cholesterol measurement (mass/volume)Ordered By: Dr. Jacobs on 12-13-2022 Cholesterol in LDL [Mass/Vol] 96 mg/dL 0-130 [facility] Serum or plasma urea nitroge n measurement (mass/volume)Ordered By: Dr. Jacobs on 12-13-2022 Urea nitrogen [Mass/Vol] 20 mg/dL 7-18 [facility] Thin prep Papanicolaou smear with manual screeningOrdered By: Dr. Jacobs on 12-13-2022 Thin prep Papanicolaou smear with manual screening 20 U/L 15-37 [facility] Thin prep Papanicolaou smear with manual screening 8 5-15 [facility] Absolute lymphocyte countOrd ered By: Dr. John on 11-19-2022 Lymphocytes Auto (Unsp spec) [#/Vol] 2.24 10*3/uL 0.83-4.51 [facility] Basophil percentageOrdered B y: Dr. John on 11-19-2022 Basophils/100 WBC (Bld) 0.8 % 0-1 [facility] Chloride [Moles/Vol] 106 mmol/L 98-107 [facility] Eosinophils/100 WBC (Bld) 6.1 % 0-5 [facility] Glucose [Mass/Vol] 90 mg/dL 74-106 [facility] Neutrophils (Bld) [#/Vol] 3.9 10*3/uL 2.0-7.7 [facility] Neutrophils/100 WBC (Bld) 53.3 % 47-70 [facility] Potassium [Moles/Vol] 4.0 mmol/L 3.5-5.1 [facility] Sodium [Moles/Vol] 137 mmol/L 136-145 [facility] WBC (Bld) [#/Vol] 7.4 10*3/uL 4.4-11.0 [facility] Blood erythrocytes count (nu mber/volume)Ordered By: Dr. John on 11-19-2022 RBC (Bld) [#/Vol] 5.65 10*6/uL 4.6-6.2 [facility] Blood hemoglobin measurement (mass/volume)Ordered By: Dr. John on 11-19-2022 Hemoglobin (Bld) [Mass/Vol] 17.3 g/dL 13.0-16.5 [facility] Blood lymphocytes/100 leukoc ytesOrdered By: Dr. John on 11-19-2022 Lymphocytes/100 WBC (Bld) 30.3 % 19-41 [facility] Blood monocytes/100 leukocyt esOrdered By: Dr. John on 11-19-2022 Monocytes/100 WBC (Bld) 9.1 % 0-10 [facility] Blood platelet mean volumeOr dered By: Dr. John on 11-19-2022 Platelet mean volume (Bld) [Entitic vol] 10.5 fL 6.2-12.0 [facility] Determination of erythrocyte mean corpuscular volume (MCV)Ordered By: Dr. John on 11-19-2022 MCV (RBC) [Entitic vol] 88.1 fL 80-94 [facility] Hematocrit Auto (Bld) [Volum e fraction]Ordered By: Dr. John on 11-19-2022 Hematocrit (Bld) [Volume fraction] 49.8 % 40-54 [facility] - Chemistry and C hemistry - challengeOrdered By: Dr. John on 11-19-2022 CO2 [Moles/Vol] 27.0 mmol/L 21.0-32.0 [facility] Urea nitrogen/Creatinine [Mass ratio] 18.3 mg/mg 10-20 [facility] - Hematology and Cell countsOrdered By: Dr. John on 11-19-2022 Erythrocyte distribution width (RBC) [Entitic vol] 41.1 fL 35.1-43.9 [facility] Erythrocyte distribution width (RBC) [Ratio] 12.7 % 11.6-14.6 [facility] Immature granulocytes/100 WBC (Bld) 0.400 % 0.0-0.9 [facility] Comment on above: IG% - Immature Granu locytes (promyelocytes, myelocytes and metamyelocytes) > 1% indicates that a LEFT SHIFT is Present. MCH (RBC) [Entitic mass] 30.6 pg 27.0-32.0 [facility] Nucleated RBC/100 WBC (Bld) [Ratio] 0 % 0-5 [facility] Auto (RBC) [Mass/Vol]Or dered By: Dr. John on 11-19-2022 MCHC (RBC) [Mass/Vol] 34.7 g/dL 32-36 [facility] No Panel InformationOrdered By: Dr. John on 11-19-2022 Estimated Creatinine Clearance Calc 81.93 ml/min [facility] Estimated GFR (MDRD) Amer 100 mL/min >60 [facility] Comment on above: GFR Calc Estimated GFR (MDRD) Non-Af Amer 82 mL/min >60 [facility] Comment on above: Non- GFR Calc Platelets bldOrdered By: Dr. John on 11-19-2022 Platelets (Bld) [#/Vol] 215 10*3/uL 150-450 [facility] Serum or plasma calcium bola urement (mass/volume)Ordered By: Dr. John on 11-19-2022 Calcium [Mass/Vol] 8.6 mg/dL 8.5-10.1 [facility] Serum or plasma creatinine m easurement (mass/volume)Ordered By: Dr. John on 11-19-2022 Creatinine [Mass/Vol] 0.99 mg/dL 0.70-1.30 [facility] Comment on above: The validity of the calculated GFR & GFRAA in patients over 70 years has not been determined. Clinical correlation is essential. Serum or plasma urea nitroge n measurement (mass/volume)Ordered By: Dr. John on 11-19-2022 Urea nitrogen [Mass/Vol] 18 mg/dL 7-18 [facility] Thin prep Papanicolaou smear with manual screeningOrdered By: Dr. John on 11-19-2022 Thin prep Papanicolaou smear with manual screening 4 5-15 [facility] CNOVon 04-07-2021 CNOV Office Visit (GENSWS) SUKI ADORNO ([id number]) 1960 M Date Time Provider Department 04/07/21 1:40 PM AUDREY GONZALEZ During your visit today, we recorded the following information about you: Audrey Gonzalez MD 04/08/2021 9:30 PM Signed Suki Adorno 1960 REFERRING PHYSICIAN: [facility]* CHIEF COMPLAINT: No chief complaint on file. HPI: The patient is a 60 year old male is s/p transanal drainage of horseshoe abscess done on 03/20/2021. He states that he feels much improved with regard to pain, however, he notes mucus discharge on his underclothing. He denies noting fecal material. He denies fevers. PAST MEDICAL HISTORY Diagnosis Date - Dysthymic disorder Depression (non-psychotic) - Perirectal abscess 03/2021 - Unspecified essential hypertension Essential hypertension PAST SURGICAL HISTORY Procedure Laterality Date - I/D ISCHIO/GLEN-RECTAL ABSCESS 03/20/2021 - PAST SURGICAL HISTORY OF wisdom tooth removed - PAST SURGICAL HISTORY OF right hand-middle finger - PAST SURGICAL HISTORY OF truong. foot surgery as child - VASECTOMY 07/09/2003 Current Outpatient Medications Medication Sig - clindamycin 300 mg capsule Take 1 capsule by mouth three times daily. ALLERGIES: Penicillin G PERSONAL HISTORY: Social History Tobacco Use - Smoking status: Current Every Day Smoker - Smokeless tobacco: Never Used - Tobacco comment: smokes 3 cigarettes per day Substance Use Topics - Alcohol use: No - Drug use: No Comment: quit FAMILY HISTORY Problem Relation Age of Onset - Cancer Mother lung - Diabetes Father - Stroke Father - Cancer Father esophageal - Diabetes Paternal Grandmother - Diabetes Paternal Grandfather REVIEW OF SYSTEMS: Denies fevers PHYSICAL EXAMINATION: General: The patient is 60 year old male, well nourished, well hydrated in no acute distress. The patient is oriented to time, place, and person. VITALS: There were no vitals taken for this visit. There is no height or weight on file to calculate BMI. Head ? Normocephalic. . Neck - supple Lungs ? No labored breathing noted, such as retractions. No cough heard. Abdomen ? soft and benign. Rectal ? fistula opening posteriorly with mucus discharge, no palpable abscess Psych ? anxious but appropriate Assessment IMPRESSION: status post incision and drainage of rectal abscess, now with anal fistula PLAN: I have discussed the above with the patient. I will refer patient to colorectal surgeon as this will be a complex repair given location. The patient acknowledges the above. I have answered all questions to the patient?s satisfaction and the patient has no further questions. . Diagnoses: (K60.3) Anal fistula (primary encounter diagnosis) Return to Clinic: The patient is instructed to follow-up with me as per needed. 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 Follow-up and Disposition History Recorded Letter Text Encounter Status:Closed by AUDREY GONZALEZ on 04/08/21 [facility] 04-07-2021 [facility] Telephone (NALLELY) SUKI ADORNO ([id number]) 1960 M Date Time Provider Department 04/07/21 AUDREY GONZALEZ During your visit today, we recorded the following information about you: Mat Browneyamilka Agrawal 04/07/2021 3:04 PM Signed Patient is being referred to Colorectal Surgery for Anal Fistula. He was scheduled with Dr. Devine for April 20 at 10:00. Patient is notified and asked that an appointment reminder be mailed to him. 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] 08/19/2006 DEPRESSIVE DISORDER NEC [F32.9] 08/19/2006 Encounter Status:Closed by JENNIE KEY LPN on 03/27/21 [facility] 03-20-2021 CNOV Office Visit (GENSWS) SUKI ADORNO ([id number]) 1960 Date Time Provider Department 03/20/21 1:20 PM AUDREY GONZALEZ During your visit today, we recorded the following information about you: Temperature Pulse Blood pressure Weight 97.2 degrees 79/minute 164/88 116.1 kg Height 1.829 m Yaima Jo LPN 03/20/2021 1:30 PM Signed REVIEW OF SYSTEMS: General: The patient denies fatigue, denies weight loss, denies weight gain, denies feeling hot, and denies feelings of cold. Eyes: The patient denies glaucoma, denies eye injury/surgery, wears glasses or contacts. Ear/Nose/Throat: The patient NOTES allergies, denies hayfever, denies ear infections, and denies bloody noses. Cardiovascular: The patient denies chest pain, denies heart disease, NOTES high blood pressure,denies cardiac stent, NOTES prior heart attack, denies irregular heart beat, denies high cholesterol, denies poor circulation, denies heart failure, other cardiac issues, denies claudication, denies cold feet, denies peripheral arterial stent. Respiratory: The patient denies tuberculosis, denies pneumonia, denies frequent cough, denies pulmonary embolism, denies shortness of breath, and denies coughing up blood. Gastrointestinal: The patient denies difficulty swallowing, denies acid reflux, denies ulcers, denies vomiting, denies jaundice/hepatitis, denies gallbladder problems, denies black or tarry stools, NOTES hemorrhoids, denies bleeding from rectum, denies diverticulitis, NOTES constipation, denies diarrhea, denies loss of stool control, and denies hernias. Kidney/Bladder: The patient denies kidney stones, denies urine infections, and denies bloody urine. Skin: The patient denies a history of skin cancer, denies bleeding/changing moles, and denies a history of skin rash. Neurologic: The patient denies a history of epilepsy/convulsions , denies headaches, denies head/spinal injuries, and denies stroke/TIA. Psychiatric: The patient denies psychiatric medications, denies depression, and denies voices, denies substance abuse. Endocrine: The patient denies thyroid disorders, denies diabetes, and denies hormonal problems. Hematologic: The patient denies a history of bruising, denies bleeding, and denies anemia, NOTES blood clots. Infections: The patient denies a history of measles and mumps, denies rheumatic fever, and denies sexually transmitted diseases. Musculoskeletal: The patient denies back pain/injury, denies back problems, denies sciatica, denies knee/foot trouble, NOTES arthritis, or denies gout. When was patient's last Mammogram screening? N/A Last Colonoscopy: Unknown Yaima Gonzalez MD 03/20/2021 2:03 PM Signed HISTORY AND PHYSICAL Suki Adorno 1960 REFERRING PHYSICIAN: [facility]* CHIEF COMPLAINT: Consult (Perirectal Abscess) HPI: The patient is a 60 year old male presents from [facility] ED with perirectal abscess.. He has had pain in the area for the past 6 days. No such previous history of pain. He does admit to chronic constipation and straining with bowel movements. He states that the area is very tender to touch and thus examination is suboptimal. He denies fevers. He denies diabetes. He admits to cigarettes use. His BMI > 30. PAST MEDICAL HISTORY Diagnosis Date - Dysthymic disorder Depression (non-psychotic) - Perirectal abscess 03/2021 - Unspecified essential hypertension Essential hypertension PAST SURGICAL HISTORY Procedure Laterality Date - PAST SURGICAL HISTORY OF wisdom tooth removed - PAST SURGICAL HISTORY OF right hand-middle finger - PAST SURGICAL HISTORY OF truong. foot surgery as child - VASECTOMY 07/09/2003 Current Outpatient Medications Medication Sig - clindamycin 300 mg capsule Take 1 capsule by mouth three times daily. ALLERGIES: Penicillin G PERSONAL HISTORY: Social History Tobacco Use - Smoking status: Current Every Day Smoker - Smokeless tobacco: Never Used - Tobacco comment: smokes 3 cigarettes per day Substance Use Topics - Alcohol use: No - Drug use: No Comment: quit FAMILY HISTORY Problem Relation Age of Onset - Cancer Mother lung - Diabetes Father - Stroke Father - Cancer Father esophageal - Diabetes Paternal Grandmother - Diabetes Paternal Grandfather The review of systems data was entered by the nurse and reviewed by nd Nursing Notes: Yaima Jo LPN 03/20/2021 1:30 PM Signed REVIEW OF SYSTEMS: General: The patient denies fatigue, denies weight loss, denies weight gain, denies feeling hot, and denies feelings of cold. Eyes: The patient denies glaucoma, denies eye injury/surgery, wears glasses or contacts. Ear/Nose/Throat: The patient NOTES allergies, denies hayfever, denies ear infections, and denies bloody noses. Cardiovascular: The patient denies chest pain, denies heart di (more content not included)... Normal [facility] Vital Signs Date Time Vital Sign Value Performing Clinician Adin sheridan 06-01-2025 15:46-0400 Body temperature 97.8 [degF] Dr. Kelsey Jacobs MD Work Phone: [facility] 06-01-2025 15:46-0400 Body weight 120.[address] Kelsey Jacobs MD Work Phone: [facility] 06-01-2025 15:46-0400 Diastolic blood pressure 66 mm[Hg] Dr. Kelsey Jacobs MD Work Phone: [facility] 06-01-2025 15:46-0400 Heart rate 95 /min Dr. Kelsey Jacobs MD Work Phone: [facility] 06-01-2025 15:46-0400 Respiratory rate 16 /min Dr. Kelsey Jacobs MD Work Phone: [facility] 06-01-2025 15:46-0400 SaO2% (BldA) [Mass fraction] 95 % Dr. Kelsey Jacobs MD Work Phone: [facility] 06-01-2025 15:46-0400 Systolic blood pressure 112 mm[Hg] Dr. Kelsey Jacobs MD Work Phone: [facility] 04-02-2025 15:14-0400 Body height 182.[address] Kelsey Jacobs MD Work Phone: [facility] 04-02-2025 15:14-0400 Body mass index (BMI) [Ratio] 36.2 kg/m2 Dr. Kelsey Jacobs MD Work Phone: [facility] 04-02-2025 15:14-0400 Body temperature 97.6 [degF] Dr. Kelsey Jacobs MD Work Phone: [facility] 04-02-2025 15:14-0400 Body weight 121.[address] Kelsey Jacobs MD Work Phone: [facility] 04-02-2025 15:14-0400 Diastolic blood pressure 78 mm[Hg] Dr. Kelsey Jacobs MD Work Phone: [facility] 04-02-2025 15:14-0400 Heart rate 61 /min Dr. Kelsey Jacobs MD Work Phone: [facility] 04-02-2025 15:14-0400 Respiratory rate 16 /min Dr. Kelsey Jacobs MD Work Phone: [facility] 04-02-2025 15:14-0400 SaO2% (BldA) [Mass fraction] 95 % Dr. Kelsey Jacobs MD Work Phone: [facility] 04-02-2025 15:14-0400 Systolic blood pressure 108 mm[Hg] Dr. Kelsey Jacobs MD Work Phone: [facility] 03-23-2025 20:24-0400 Body temperature 98.8 [degF] Dr. Kelsey Jacobs MD Work Phone: [facility] 03-23-2025 20:24-0400 Diastolic blood pressure 72 mm[Hg] Dr. Kelsey Jacobs MD Work Phone: [facility] 03-23-2025 20:24-0400 Heart rate 64 /min Dr. Kelsey Jacobs MD Work Phone: [facility] 03-23-2025 20:24-0400 Respiratory rate 18 /min Dr. Kelsey Jacobs MD Work Phone: [facility] 03-23-2025 20:24-0400 SaO2% (BldA) [Mass fraction] 95 % Dr. Kelsey Jacobs MD Work Phone: [facility] 03-23-2025 20:24-0400 Systolic blood pressure 119 mm[Hg] Dr. Kelsey Jacobs MD Work Phone: [facility] 03-23-2025 17:53-0400 Body height 182.[address] Kelsey Jacobs MD Work Phone: [facility] 03-23-2025 17:53-0400 Body mass index (BMI) [Ratio] 37.3 kg/m2 Dr. Kelsey Jacobs MD Work Phone: [facility] 03-23-2025 17:53-0400 Body weight 125.[address] Kelsey Jacobs MD Work Phone: [facility] 03-04-2025 13:43-0400 Body temperature 97.8 [degF] Dr. Kelsey Jacobs MD Work Phone: [facility] 03-04-2025 13:43-0400 Diastolic blood pressure 78 mm[Hg] Dr. Kelsey Jacobs MD Work Phone: [facility] 03-04-2025 13:43-0400 Heart rate 74 /min Dr. Kelsey Jacobs MD Work Phone: [facility] 03-04-2025 13:43-0400 Respiratory rate 13 /min Dr. Kelsey Jacobs MD Work Phone: [facility] 03-04-2025 13:43-0400 SaO2% (BldA) [Mass fraction] 94 % Dr. Kelsey Jacobs MD Work Phone: [facility] 03-04-2025 13:43-0400 Systolic blood pressure 140 mm[Hg] Dr. Kelsey Jacobs MD Work Phone: [facility] 03-04-2025 09:42-0400 Body height 182.[address] Kelsey Jacobs MD Work Phone: [facility] 03-04-2025 09:42-0400 Body mass index (BMI) [Ratio] 36.8 kg/m2 Dr. Kelsey Jacobs MD Work Phone: [facility] 03-04-2025 09:42-0400 Body weight 123.[address] Kelsey Jacobs MD Work Phone: [facility] 12-10-2024 07:27-0500 Body mass index (BMI) [Ratio] 36.2 kg/m2 Dr. Kelsey Jacobs MD Work Phone: [facility] 12-10-2024 07:27-0500 Body temperature 98.2 [degF] Dr. Kelsey Jacobs MD Work Phone: [facility] 12-10-2024 07:27-0500 Body weight 121.[address] Kelsey Jacobs MD Work Phone: [facility] 12-10-2024 07:27-0500 Diastolic blood pressure 68 mm[Hg] Dr. Kelsey Jacobs MD Work Phone: [facility] 12-10-2024 07:27-0500 Heart rate 65 /min Dr. Kelsey Jacobs MD Work Phone: [facility] 12-10-2024 07:27-0500 Respiratory rate 16 /min Dr. Kelsey Jacobs MD Work Phone: [facility] 12-10-2024 07:27-0500 SaO2% (BldA) [Mass fraction] 99 % Dr. Kelsey Jacobs MD Work Phone: [facility] 12-10-2024 07:27-0500 Systolic blood pressure 118 mm[Hg] Dr. Kelsey Jacobs MD Work Phone: [facility] 12-02-2024 14:33-0500 Body temperature 97.7 [degF] Dr. Kelsey Jacobs MD Work Phone: [facility] 12-02-2024 14:33-0500 Body weight 120.[address] Kelsey Jacobs MD Work Phone: [facility] 12-02-2024 14:33-0500 Diastolic blood pressure 71 mm[Hg] Dr. Kelsey Jacobs MD Work Phone: [facility] 12-02-2024 14:33-0500 Heart rate 77 /min Dr. Kelsey Jacobs MD Work Phone: [facility] 12-02-2024 14:33-0500 Respiratory rate 16 /min Dr. Kelsey Jacobs MD Work Phone: [facility] 12-02-2024 14:33-0500 SaO2% (BldA) [Mass fraction] 95 % Dr. Kelsey Jacobs MD Work Phone: [facility] 12-02-2024 14:33-0500 Systolic blood pressure 118 mm[Hg] Dr. Kelsey Jacobs MD Work Phone: [facility] 11-28-2024 14:17-0500 Body temperature 97.7 [degF] Dr. Kelsey Jacobs MD Work Phone: [facility] 11-28-2024 14:17-0500 Diastolic blood pressure 104 mm[Hg] Dr. Kelsey Jacobs MD Work Phone: [facility] 11-28-2024 14:17-0500 Heart rate 77 /min Dr. Kelsey Jacobs MD Work Phone: [facility] 11-28-2024 14:17-0500 Respiratory rate 20 /min Dr. Kelsey Jacobs MD Work Phone: [facility] 11-28-2024 14:17-0500 SaO2% (BldA) [Mass fraction] 96 % Dr. Kelsey Jacobs MD Work Phone: [facility] 11-28-2024 14:17-0500 Systolic blood pressure 120 mm[Hg] Dr. Kelsey Jacobs MD Work Phone: [facility] 11-28-2024 08:30-0500 Inhaled oxygen flow rate 2 L/min Dr. Kelsey Jacobs MD Work Phone: [facility] 11-26-2024 03:34-0500 Body mass index (BMI) [Ratio] 36.6 kg/m2 Dr. Kelsey Jacobs MD Work Phone: [facility] 11-26-2024 03:34-0500 Body weight 122.[address] Kelsey Jacobs MD Work Phone: [facility] 03-25-2023 15:30-0400 Body height 182.[address] oJvanna Diaz Work Phone: [facility] 03-25-2023 15:30-0400 Body mass index (BMI) [Ratio] 36.4 kg/m2 Dr. Jovanna Diaz Work Phone: [facility] 03-25-2023 15:30-0400 Body temperature 98.7 [degF] Dr. Jovanna Diaz Work Phone: [facility] 03-25-2023 15:30-0400 Body weight 122.[address] Jovanna Diaz Work Phone: [facility] 03-25-2023 15:30-0400 Diastolic blood pressure 80 mm[Hg] Dr. Jovanna Diaz Work Phone: [facility] 03-25-2023 15:30-0400 Heart rate 65 /min Dr. Jovanna Diaz Work Phone: [facility] 03-25-2023 15:30-0400 Respiratory rate 16 /min Dr. Jovanna Diaz Work Phone: [facility] 03-25-2023 15:30-0400 SaO2% (BldA) [Mass fraction] 94 % Dr. Jovanna Diaz Work Phone: [facility] 03-25-2023 15:30-0400 Systolic blood pressure 136 mm[Hg] Dr. Jovanna Diaz Work Phone: [facility] 01-29-2023 08:09-0400 Body mass index (BMI) [Ratio] 40.3 kg/m2 No Primary Care Physician [facility] 01-29-2023 08:09-0400 Body temperature 97.5 [degF] No Primary Care Physician [facility] 01-29-2023 08:09-0400 Diastolic blood pressure 78 mm[Hg] No Primary Care Physician [facility] 01-29-2023 08:09-0400 Heart rate 70 /min No Primary Care Physician [facility] 01-29-2023 08:09-0400 Respiratory rate 20 /min No Primary Care Physician [facility] 01-29-2023 08:09-0400 Systolic blood pressure 150 mm[Hg] No Primary Care Physician [facility] 01-22-2023 16:34-0500 Body height 182.88 cm No Primary Care Physician [facility] 01-22-2023 16:34-0500 Body mass index (BMI) [Ratio] 37.3 kg/m2 No Primary Care Physician [facility] 01-22-2023 16:34-0500 Body temperature 97.2 [degF] No Primary Care Physician [facility] 01-22-2023 16:34-0500 Body weight 124.73 kg No Primary Care Physician [facility] 01-22-2023 16:34-0500 Diastolic blood pressure 80 mm[Hg] No Primary Care Physician [facility] 01-22-2023 16:34-0500 Heart rate 73 /min No Primary Care Physician [facility] 01-22-2023 16:34-0500 Respiratory rate 16 /min No Primary Care Physician [facility] 01-22-2023 16:34-0500 SaO2% (BldA) [Mass fraction] 96 % No Primary Care Physician [facility] 01-22-2023 16:34-0500 Systolic blood pressure 142 mm[Hg] No Primary Care Physician [facility] 01-16-2023 00:27-0500 Body weight 129.27 kg No Primary Care Physician [facility] 01-15-2023 08:26-0500 Body mass index (BMI) [Ratio] 40.3 kg/m2 No Primary Care Physician [facility] 01-15-2023 08:26-0500 Body temperature 96.9 [degF] No Primary Care Physician [facility] 01-15-2023 08:26-0500 Diastolic blood pressure 93 mm[Hg] No Primary Care Physician [facility] 01-15-2023 08:26-0500 Heart rate 64 /min No Primary Care Physician [facility] 01-15-2023 08:26-0500 Systolic blood pressure 164 mm[Hg] No Primary Care Physician [facility] 01-08-2023 16:15-0500 Diastolic blood pressure 98 mm[Hg] No Primary Care Physician [facility] 01-08-2023 16:15-0500 Systolic blood pressure 154 mm[Hg] No Primary Care Physician [facility] 01-08-2023 15:18-0500 Body height 182.88 cm No Primary Care Physician [facility] 01-08-2023 15:18-0500 Body mass index (BMI) [Ratio] 37.8 kg/m2 No Primary Care Physician [facility] 01-08-2023 15:18-0500 Body temperature 97.7 [degF] No Primary Care Physician [facility] 01-08-2023 15:18-0500 Body weight 126.55 kg No Primary Care Physician [facility] 01-08-2023 15:18-0500 Heart rate 59 /min No Primary Care Physician [facility] 01-08-2023 15:18-0500 Respiratory rate 16 /min No Primary Care Physician [facility] 01-08-2023 15:18-0500 SaO2% (BldA) [Mass fraction] 96 % No Primary Care Physician [facility] 01-08-2023 08:22-0500 Respiratory rate 18 /min No Primary Care Physician [facility] 12-27-2022 12:55-0500 Body mass index (BMI) [Ratio] 40.3 kg/m2 No Primary Care Physician [facility] 12-27-2022 12:55-0500 Body temperature 97.5 [degF] No Primary Care Physician [facility] 12-27-2022 12:55-0500 Diastolic blood pressure 93 mm[Hg] No Primary Care Physician [facility] 12-27-2022 12:55-0500 Heart rate 72 /min No Primary Care Physician [facility] 12-27-2022 12:55-0500 Respiratory rate 18 /min No Primary Care Physician [facility] 12-27-2022 12:55-0500 Systolic blood pressure 154 mm[Hg] No Primary Care Physician [facility] 12-19-2022 00:44-0500 Body weight 129.27 kg No Primary Care Physician [facility] 12-18-2022 08:17-0500 Body mass index (BMI) [Ratio] 40.3 kg/m2 No Primary Care Physician [facility] 12-18-2022 08:17-0500 Body temperature 97.2 [degF] No Primary Care Physician [facility] 12-18-2022 08:17-0500 Diastolic blood pressure 95 mm[Hg] No Primary Care Physician [facility] 12-18-2022 08:17-0500 Heart rate 71 /min No Primary Care Physician [facility] 12-18-2022 08:17-0500 Systolic blood pressure 169 mm[Hg] No Primary Care Physician [facility] 12-13-2022 09:45-0500 Respiratory rate 16 /min No Primary Care Physician [facility] 12-12-2022 10:56-0500 Diastolic blood pressure 102 mm[Hg] No Primary Care Physician [facility] 12-12-2022 10:56-0500 Systolic blood pressure 156 mm[Hg] No Primary Care Physician [facility] 12-12-2022 08:55-0500 Body height 182.88 cm No Primary Care Physician [facility] 12-12-2022 08:55-0500 Body mass index (BMI) [Ratio] 37.3 kg/m2 No Primary Care Physician [facility] 12-12-2022 08:55-0500 Body temperature 97.8 [degF] No Primary Care Physician [facility] 12-12-2022 08:55-0500 Body weight 124.73 kg No Primary Care Physician [facility] 12-12-2022 08:55-0500 Heart rate 74 /min No Primary Care Physician [facility] 12-12-2022 08:55-0500 Respiratory rate 16 /min No Primary Care Physician [facility] 12-12-2022 08:55-0500 SaO2% (BldA) [Mass fraction] 96 % No Primary Care Physician [facility] 12-04-2022 09:14-0500 Body weight 129.27 kg No Primary Care Physician [facility] 11-19-2022 14:59-0500 Body temperature 98.7 [degF] [facility] 11-19-2022 14:59-0500 Diastolic blood pressure 90 mm[Hg] [facility] 11-19-2022 14:59-0500 Heart rate 60 /min [facility] 11-19-2022 14:59-0500 Respiratory rate 15 /min [facility] 11-19-2022 14:59-0500 SaO2% (BldA) [Mass fraction] 99 % [facility] 11-19-2022 14:59-0500 Systolic blood pressure 180 mm[Hg] [facility] 11-19-2022 10:47-0500 Body height 177.8 cm [facility] Work Phone: 11-19-2022 10:47-0500 Body mass index (BMI) [Ratio] 34.4 kg/m2 [facility] 11-19-2022 10:47-7390 Body weight 108.86 kg [facility] Encounters Encounter Date Encounter Type Care Provider Facility Start: 06-21-2025 ambulatory Shashank Trezevant Facility:[facility] Start: 06-01-2025 End: 06-01-2025 Patient encounter procedure Madyson NICE -[facility] Work Phone: Start: 06-01-2025 End: 06-01-[address] Kelsey Jacobs MD Work Phone: -[facility] Start: 05-24-2025 Non-patient / Non-visit Dr. Shashank Millan MD -[facility] Start: 05-24-2025 End: 05-24-[address] Kelsey Jacobs MD Work Phone: -[facility] Start: 05-24-2025 End: 05-24-2025 Patient encounter procedure Madyson NICE -[facility] Work Phone: Start: 05-24-2025 End: 05-24-2025 ambulatory Madyson Cardoso Facility:[facility] Start: 04-02-2025 End: 04-02-2025 Patient encounter procedure Colin NICE -[facility] Work Phone: Start: 04-02-2025 End: 04-02-[address] Kelsey Jacobs MD Work Phone: [facility] Work Phone: Start: 03-23-2025 End: 03-23-2025 Emergency department patient visit Dr. Kelsey Jacobs MD Work Phone: -Emergency Department Work Phone: Start: 03-04-2025 End: 03-04-2025 Emergency department patient visit Dr. Kelsey Jacobs MD Work Phone: -Emergency Department Work Phone: Start: 12-29-2024 ambulatory Bib Bragg Facility:[facility] Start: 12-29-2024 Non-patient / Non-visit Dr. Bib Bragg MD -[facility] Start: 12-29-2024 End: 12-29-2024 Patient encounter procedure Madyson NICE -Cardiovascular Services Work Phone: Start: 12-29-2024 End: 12-29-2024 ambulatory Madyson Cardoso Facility:[facility] Start: 12-10-2024 End: 12-10-[address] Kelsey Jacobs MD -[facility] Work Phone: Start: 12-10-2024 End: 12-10-2024 [facility] Start: 12-10-2024 End: 12-10-2024 ambulatory Kelsey Fultonlay Facility:[facility] Start: 12-02-2024 End: 12-02-2024 Patient encounter procedure Madyson NICE -[facility] Work Phone: Start: 12-02-2024 End: 12-02-2024 ambulatory Madyson Cardoso [facility] Start: 11-28-2024 Non-patient / Non-visit Dr. Hemant Castillo DO [facility] Work Phone: Start: 11-27-2024 Non-patient / Non-visit Dr. Hemant Castillo DO [facility] Work Phone: Start: 11-27-2024 Non-patient / Non-visit Dr. Hugo Vee DO [facility] Start: 11-26-2024 Non-patient / Non-visit Dr. Shashank Millan MD -[facility] Start: 11-26-2024 Non-patient / Non-visit Dr. Hugo Vee DO [facility] Start: 11-26-2024 ambulatory Kelsey Jacobs Facility :[facility] Start: 11-26-2024 Non-patient / Non-visit Dr. Bib Bragg MD -[facility] Start: 11-26-2024 End: 11-28-2024 ambulatory Madyson Cardoso Facility:[facility] Start: 11-26-2024 End: 11-28-2024 Evaluation and management of inpatient Dr. Hemant Castillo DO -[facility] Work Phone: Start: 04-09-2023 End: 04-09-[address] Jovanna Diaz Work Phone: [facility] Work Phone: Start: 04-09-2023 End: 04-09-[address] Jovanna Diaz Work Phone: [facility]-Laboratory, [facility] Start: 03-25-2023 End: 03-25-[address] Jovanna Diaz Work Phone: [facility] Start: 02-26-2023 End: 02-26-[address] Jovanna Diaz Work Phone: [facility] Work Phone: Start: 02-26-2023 End: 02-26-[address] Jovanna Diaz Work Phone: [facility]-Pre-Admission Testing Start: 02-14-2023 End: 02-14-2023 Patient encounter procedure No Primary Care Physician [facility] Start: 02-14-2023 End: 02-15-2023 ambulatory No Primary Care Physician [facility] Work Phone: Start: 02-14-2023 End: 02-15-2023 Discharged Recurring No [facility] Phys[facility] Start: 01-29-2023 Registered Recurring No Primar y Care Physician [facility] [place] Start: 01-25-2023 End: 01-25-2023 ambulatory No Primary Care Physician [facility] Work Phone: Start: 01-25-2023 End: 01-25-2023 Patient encounter procedure No Primary Care Physician [facility] Start: 01-22-2023 End: 01-22-2023 Patient encounter procedure No Primary Care Physician [facility] Start: 01-15-2023 End: 01-15-2023 ambulatory No Primary Care Physician [facility] Work Phone: Start: 01-15-2023 End: 01-15-2023 Discharged Recurring No [facility] Start: 01-08-2023 End: 01-08-2023 Patient encounter procedure No Primary Care Physician [facility] Start: 12-27-2022 Registered Recurring No Primar y Care Phys[facility] [place] Start: 12-18-2022 End: 12-18-2022 ambulatory No Primary Care Physician [facility] Work Phone: Start: 12-18-2022 End: 12-18-2022 Discharged Recurring No [facility] Phys[facility] Start: 12-17-2022 End: 12-17-2022 ambulatory No Primary Care Physician [facility] Work Phone: Start: 12-17-2022 End: 12-17-2022 Patient encounter procedure No Primary Care Physician [facility] Start: 12-12-2022 End: 12-12-2022 Patient encounter procedure No Primary Care Physician [facility] Start: 11-19-2022 Non-patient / Non-visit No Primary Care Physician [facility] Start: 11-19-2022 End: 11-19-2022 Emergency department patient visit [facility]-Emergency Department Procedures Date Procedure Procedure Detail Performing Clinician Start: 03-23-[address] Kelsey Jacobs MD Work Phone: Start: 03-04-2025 X-ray of chest, PA a nd lateral views Dr. Kelsey Jacobs MD Work Phone: Start: 03-04-2025 D-dimer assay, quantitative Dr. Kelsey Jacobs MD Work Phone: Comment on above: NORMAL D-Dimer level (<0.50) indicates no DVT or PE. Start: 03-04-[address] Kelsey Jacobs MD Work Phone: Start: 12-10-2024 Assay of prostate sp ecific antigen total Dr. Kelsey Jacobs MD Work Phone: Comment on above: This test was perfor med using the TPSA assay method for Tink chemistry system. Values obtained with differentassay methods cannot be used interchangably.When changing PSA assays in the course of monitoring apatient, additional sequential testing should be carriedout to confirm baseline values. Start: 12-10-2024 Measurement of renal function Dr. Kelsey Jacobs MD Work Phone: Comment on above: GFR Calc Start: 11-26-2024 CT angiography of ch est with contrast Dr. Kelsey Jacobs MD Work Phone: Start: 11-25-2024 X-ray of chest, PA a nd lateral views Dr. Kelsey Jacobs MD Work Phone: Start: 11-25-2024 SARS-CoV-2, Influenz a & RSV (PCR) Dr. Kelsey Jacobs MD Work Phone: Start: 11-19-2022 Radiography of ankle H/O: surgery History of hand surgery No Primary Care Physician Plan of Treatment Date Care Activity Detail Author Start: 03-23-2025 [facility] Start: 03-04-2025 [facility] Start: 03-04-2025 [facility] Start: 11-28-2024 Patient discharge [facility] Start: 11-26-2024 Elevation of head of bed [facility] Start: 11-26-2024 Bedrest [facility] Start: 11-26-2024 Notification of physician [facility] Start: 11-26-2024 Provision of activity privileges [facility] Start: 11-26-2024 Pulse taking [facility] Start: 11-26-2024 Taking patient vital signs [facility] Start: 11-26-2024 End: 11-26-2024 [facility] Start: 11-26-2024 Catheterization of vein [facility] Start: 11-26-2024 Medication not administered [facility] Start: 11-26-2024 Preoperative care [facility] Start: 11-26-2024 [facility] Start: 11-26-2024 Referral to vascular surgeon [facility] Start: 11-26-2024 Following clinical p athway protocol [facility] Start: 11-26-2024 Ambulation without limitation [facility] Start: 11-26-2024 Assessment of risk o f venous thromboembolism [facility] Start: 11-26-2024 Inhalation therapy procedure [facility] Start: 11-26-2024 Insertion of cathete r into peripheral vein [facility] Start: 11-26-2024 Oxygen therapy [facility] Start: 11-26-2024 Providing care accor ding to standard [facility] Start: 11-26-2024 Referral to service [facility] Start: 11-26-2024 [facility] Start: 11-26-2024 Admission procedure [facility] Inhalation bronchial challenge testing [facility] Patient Education [facility] Work Phone: Patient referral [facility] Work Phone: Tobacco use cessation education [facility] Tobacco use cessation education [facility] Troponin T.cardiac [ Mass/volume] in Serum or Plasma by High sensitivity method [facility] Urinalysis complete panel - Urine [facility] US.doppler Lower ext remity vessels [facility] Immunizations Immunization Date Immunization Notes Care Provider Kacey lepe 10-02-2021 Covid (Pfizer) No Primary Ca re Physician [facility] Payers Date Payer Category Payer Self-pay [id number] 2024 Unknown [id number] Unknown [id number] 2.16.8 [id number] Unknown [id number] 2.16.8 [id number] Unknown [id number] 2.16.8 40.1.190590.3.579.2.462 Unknown [id number] 2.16.8 40.1.383853.3.579.2.462 Unknown [id number] 2.16.8 40.1.023498.3.579.2.462 Unknown [id number] 2.16.8 40.1.013260.3.579.2.462 Unknown [id number] 2.16.8 40.1.138992.3.579.2.462 Unknown [id number] 2.16.8 40.1.983419.3.579.2.462 Unknown [id number] 2.16.8 40.1.189171.3.579.2.462 Unknown [id number] 2.16.8 40.1.404470.3.579.2.462 Unknown [id number] 2.16.8 40.1.062244.3.579.2.462 Unknown [id number] 2.16.8 40.1.544322.3.579.2.462 Unknown [id number] 2.16.8 40.1.884050.3.579.2.462 Unknown [id number] 2.16.8 40.1.099266.3.579.2.462 Unknown [id number] 2.16.8 40.1.556273.3.579.2.462 Unknown [id number] 2.16.8 40.1.818236.3.579.2.462 Unknown [id number] 2.16.8 40.1.295641.3.579.2.462 Unknown [id number] 2.16.8 40.1.610571.3.579.2.462 Unknown [id number] 2.16.8 40.1.496948.3.579.2.462 Unknown [id number] 2.16.8 40.1.289376.3.579.2.462 Unknown [id number] 2.16.8 40.1.534071.3.579.2.462 Social History Date Type Detail Facility Start: 11-19-2022 End: 03-25-2023 Tobacco smoking status CTIS Unknown if ever smoked [facility] Start: 03-20-2021 Cigarettes [facility] Start: 1960 Sex Assigned At Male [facility] Start: 03-04-2025 End: 03-23-2025 Tobacco smoking status NHIS Ex-smoker (finding) [facility] Start: 03-04-2025 End: 03-23-2025 Sex Male (finding) [facility] Goals Date Patient Goal Desired Activity /State Functional Status Date Assessment Result Facility 11-28-2024 Functional status Ambulates [facility] Work Phone: Mental Status Date Assessment Result Facility 03-04-2025 Cognitive function Voice/Name [facility] Work Phone: 11-28-2024 Cognitive function Voice/Name [facility] Work Phone: Clinical Notes 03-20-2021 to 04-02-2025 Note Date & Type Note Facility 04-02-2025 Evaluation note Diagnosis Onset Date Resolution Cellulitis of left lower leg acute April 02, 2025 3 :02pm [facility] Work Phone: 1(562) 246-578005-06-2025 Discharge summary [facility] Medical Records Department [address] [place] [address] Emergency Department Summary 03/23/25 MR#: [id number] Acct: [id number] Name: SUKI ADORNO Rep #:[id number] : 1960 64 From: Mateo Hoffman MD PCP: Dr. Kelsey Jacobs MD Status:REG ER Location: ED HPI History of Present Illness Chief Complaint: Cellulitis Informant: patient and spouse/S.O. Onset/Context/Timing Onset: Days Context: Gradual Onset Timing: Continuous Current Severity: Moderate Maximum Severity: Moderate Narrative Narrative: 64-year-old male history of DVT and pulmonary emboli on Eliquis. States he is having left calf pain, redness and fever as high as 103 last 3 days. Denies vomiting or diarrhea. Prior similar symptoms: No Recent Illness/Hospitalization: No PFSH PFSH Medical History Acute saddle pulmonary embolism COVID Tinnitus Marijuana use Thrombosis Wears glasses Depression Alcohol use Arthritis Prostate disease Restless legs Migraine headache Smoker BiPAP (biphasic positive airway pressure) dependence Shortness of breath on exertion History of stress test Hypertension Hx of hypoglycemia Hx of migraines Hx of seasonal allergies Lipodermatosclerosis Venous stasis ulcer of ankle with fat layer exposed Chronic venous hypertension w/ulcer and inflammation involv left side Chronic venous insufficiency Seizures Home Medications ?Medication ?Instructions ?Recorded ?Last Taken ?Type blood pressure monitor #1 ea 12/12/22 Unknown Rx amlodipine 5 mg tablet See Rx Instructions .Route 0 12/10/24 03/03/25 Rx .COMPLEX #90 tabs escitalopram oxalate 10 mg tablet 10 mg PO DAILY #90 t abs 12/10/24 03/04/25 Rx (Lexapro) tamsulosin 0.4 mg capsule (Flomax) 0.4 mg PO QHS #90 c aps 12/10/24 03/03/25 Rx apixaban 5 mg tablet (Eliquis) 5 mg PO BID #60 tabs 03/04/25 Rx lisinopril 20 1 tab PO DAILY 03/04/2502/16 History mg-hydrochlorothiazide 12.5 mg tablet clindamycin HCl 300 mg capsule 300 mg PO Q6H #40 CAPSU LES 03/23/25 Unknown Rx (Cleocin HCl) Allergy/AdvReac Type Severity Reaction Status Date / Time Penicillins Allergy Unknown UNKNOWN Verified 03/23/25 17:53 Family History Father Angina at rest Anxiety Diabetes Myocardial infarction Heart disease Hypertension Hyperlipidemia Respiratory disease Cancer esophageal Mother Cancer lung Depression Hormone disorder Seizures Osteoporosis Brother Myocardial infarction Hyperlipidemia Surgical History History of thrombectomy History of incision and drainage H/O foot surgery History of hemorrhoidectomy Hx of hand surgery History of nasal surgery Social History household members: significant other housing: house current occupational status: employed current occupation: [employer] sexually active: Yes Smoking Status: Former smoker quit date: 11/26/24 Electronic Cigarette Use: not used alcohol intake: current alcohol intake frequency: holidays/special occasions only substance use type: former substance user Date of last use: marijuana what type of physical activity do you participate in: walking and additional details: lifting frequency: 5-6 times per week seatbelt use: always do you feel safe at home: Yes ROS ROS ED ROS Narrative Fever. Left calf pain, redness and swelling. Constitutional Constitutional ED: Reports chills and fever(s) Eyes Eyes: Denies blurry vision ENT ENT ED: Denies ear pain Cardiovascular Cardiovascular: Denies chest pain Respiratory/Chest Respiratory/Chest: Denies cough or dyspnea Gastrointestinal Gastrointestinal: Denies abdominal pain Genitourinary Genitourinary ED: Denies dysuria or hematuria Musculoskeletal Musculoskeletal: Denies arthralgias or back pain Integumentary Reports rash; Denies abscess or Abrasions Neurologic Neurologic: Denies headache(s) Psychiatric Psychiatric: Denies anxiety Endocrine Endocrinology: Denies cold intolerance Hematologic/Lymphatic Hematologic/Lymphatic: Reports none Allergic/Immunologic Allergic/Immunologic ED: Denies mouth swelling, tongue swelling or urticaria EXAM Physical Exam Narrative Exam Narrative: 64-year-old male no acute distress. Vital signs stable afebrile. H EENT exam pupils round react light. Mytrex members. Neck nontender no JVD. Lungs clear to auscultation bilaterally. Heart regular rhythm rate about 65 no murmur. Chest wall ribs nontender. Abdomen soft nontender. Moving all 4 extremities. Neurovascular intact. Left lower leg swollen. Calf redness over basically the entire posterior calf. Left foot neurovascularly intact with normal dorsi plantarflexion. Normal motor strength. Normal sensation. Neurologically is awake and alert. No focal motor deficits. Leg exam is consistent with a cellulitis. Const Vital Signs: 03/23/25 17:53 03/23/25 17:57 03/23/25 18:57 Temperature 98.8 F 98.8 F 98.8 F Temperature Source Oral Oral Oral Pulse Rate 65 65 59 L Respiratory Rate 18 18 18 Blood Pressure 146/92 H 146/92 H 119/72 Blood Pressure Mean 110 110 87 Pulse Ox 97 97 93 Oxygen Delivery Method Room Air Room Air Room Air 03/23/25 19:00 Temperature 98.8 F Temperature Source Oral Pulse Rate 60 Respiratory Rate 18 Blood Pressure 119/72 Blood Pressure Mean 87 Pulse Ox 94 Oxygen Delivery Method Room Air Positive well nourished and well developed; Negative for cachectic, contracturesor unkempt General Appearance ED: well developed and NAD; Negative for unkempt, cachectic, contractures, cyanotic, diaphoretic or pallor Nutritional Appearance: Negative for cachectic HEENT Reports moist mucous membranes Eyes PERRL and EOMs intact bilaterally Neck no lymphadenopathy, supple and no JVD Chest Wall inspection of chest normal and palpation of chest normal Resp normal respiratory effort and clear to auscultation bilaterally Cardio regular rate, regular rhythm, S1 normal heart sound, S2 normal heart sound and no murmurs GI normal to inspection, nondistended, normoactive bowel sounds, non-tender, non- distended and no masses Palpation: soft; Negative for tender, guarding or rebound tenderness present Back/Spine no CVA tenderness Extremity Negative for normal to inspection Extremity Narrative: Left calf edematous, tender and cellulitis. From basically the ankle up to justbelow the knee. No lymphangitic streaking. No inguinal lymphadenopathy. No crepitance. No necrotic skin. No sloughing ofskin. Left foot is neurovascularly intact with normal dorsi plantarflexion. No signs of septic joint. General Extremety ED: Yes edema and tenderness General Extremity: edema Neuro oriented x3 and CN's II-XII intact bilaterally Sensorium / Orientation: alert; Negative for orientation impaired, lethargic or stuporous Motor Exam: strength 5/5 throughout Psych mental status grossly normal Appearance: Negative for unkempt Skin No no rashes or lesions noted General Skin Exam: Negative for jaundice or pallor Rashes: rashes noted MDM MDM MDM Narrative Medical decision making narrative: 64-year-old male left lower extremity cellulitis. He has reportedly a penicillin allergy when he developed a rash as a child. We started on clindamycin IV. Screening labs to be obtained. He had a history of DVT but he is on Eliquis and IV think this is obvious cellulitis and not a DVT. I do not think he needs venous studies. Repeat exam at 8:05 PM patient doing well. I reevaluated his left calf he has acellulitis but it isnot spread it is not going up his leg. There is no lymphangitic streaking. There is no necrotic skin. Foot is neurovascularly intact. There is no crepitance. And there is no inguinal lymphadenopathy.We discussed options of admission versus home oral antibiotics. He much prefers togo home and knowsreturn if he is getting worse instead of better. He was givena dose of clindamycin IV here. Patientbe written for clindamycin 304 times a day for 10 days outpatient follow-up. History & Record Review Discussion w/independent historian: Patient and Family Additional record(s) reviewed:: Prior inpatient record, Prior outpatient record,Prior ED visit and Prior labs Lab Data Attestation: I reviewed the patient's lab results. Lab results narrative: CBC unremarkable white count 8. H&H 14 and 42. Platelets 232. Electrolytes show gap 11. BUN of 31 creatinine 1.1. Glucose 105. Labs: Laboratory Results - last 24 hr 03/23/25 18:43 WBC 8.1 RBC 4.84 Hgb 14.6 Hct 42.2 MCV 87.2 MCH 30.2 MCHC 34.6 RDW Std Deviation 41.1 RDW Coeff of Adrian 12.9 Plt Count 232 MPV 10.1 Immature Gran % (Auto) 0.500 Neut % (Auto) 65.8 Lymph % (Auto) 22.8 Craig % (Auto) 7.5 Eos % (Auto) 2.8 Baso % (Auto) 0.6 Absolute Neuts (auto) 5.3 Absolute Lymphs (auto) 1.85 Nucleated RBC % 0 Sodium 137 Potassium 3.8 Chloride 102 Carbon Dioxide 24.6 Anion Gap 11 BUN 31 H Creatinine 1.17 Estim Creat Clear Calc 89.43 Est GFR (MDRD) Non-Af 70 BUN/Creatinine Ratio 26.5 H Glucose 105 H Calcium 8.7 Discharge Plan Triage Chief Complaint: Cellulitis ED Provider: Mateo Hoffman Dx/Rx/DC Orders Clinical Impression: Cellulitis, History of deep vein thrombosis, Chronic anticoagulation Instructions: ED Cellulitis Prescriptions: New clindamycin HCl [Cleocin HCl] 300 mg capsule 300 mg PO Q6H Qty: 40 0RF No Action (DME) blood pressure monitor Kit See Rx Instructions .Route Qty: 1 0RF Rx Instructions: As directed amlodipine 5 mg tablet See Rx Instructions .ROUTE .COMPLEX Qty: 90 1RF Dose Instruction: TAKE 1 TABLET BY MOUTH AT BEDTIME Rx Instructions: TAKE 1 TABLET BY MOUTH AT BEDTIME escitalopram oxalate [Lexapro] 10 mg tablet 10 mg PO DAILY Qty: 90 1RF tamsulosin [Flomax] 0.4 mg capsule 0.4 mg PO QHS Qty: 90 1RF lisinopril-hydrochlorothiazide 20-12.5 mg tablet 1 tab PO DAILY Eliquis 5 mg tablet 5 mg PO BID Qty: 60 2RF Primary Care Provider: Kelsey Jacobs Referrals: Kelsey Jacobs MD [Primary Care Provider] - 3-5 Days Activity Restrictions/Additional Instructions: Soft tissue infection called cellulitis of the left lower leg. Tylenol for pain. The antibiotic clindamycin 4 times a day for the next 10 days. Return if getting worse if you feel worse or if the infection is spreading up your leg past her knee. Follow-up with your doctor in the next several days to ensure this is improving instead of getting worse. Elevate your leg to decrease pain and swelling. Print Language: Malian Disposition Disposition: Home, Self Care What to do if you have Problems For any increased pain, shortness of breath, bleeding, nausea or vomiting, chestpain, or any unexpected problems, contact your Primary Care Provider. Call [facility] ([phone]) or report tothe closest Emergency Room. Call 911 if necessary. 03/23/252013 Cosigner Signature (if applicable): CC: Dr. Kelsey Jacobs MD ~ Signed [facility]05-06-2025 Discharge summary Author Mateo Hoffman [facility] Note Date/Time March 23, 2025 8:14pm [facility] Medical Records Department [address] [place] [address] Emergency Department Summary 03/23/25 MR#: [id number] Acct: [id number] Name: SUKI ADORNO Rep #:[id number] : 1960 64 From: Mateo Hoffman MD PCP: Dr. Kelsey Jacobs MD Status:REG ER Location: ED HPI History of Present Illness Chief Complaint: Cellulitis Informant: patient and spouse/S.O. Onset/Context/Timing Onset: Days Context: Gradual Onset Timing: Continuous Current Severity: Moderate Maximum Severity: Moderate Narrative Narrative: 64-year-old male history of DVT and pulmonary emboli on Eliquis. States he is having left calf pain, redness and fever as high as 103 last 3 days. Denies vomiting or diarrhea. Prior similar symptoms: No Recent Illness/Hospitalization: No PFSH [facility] Medical History Acute saddle pulmonary embolism COVID Tinnitus Marijuana use Thrombosis Wears glasses Depression Alcohol use Arthritis Prostate disease Restless legs Migraine headache Smoker BiPAP (biphasic positive airway pressure) dependence Shortness of breath on exertion History of stress test Hypertension Hx of hypoglycemia Hx of migraines Hx of seasonal allergies Lipodermatosclerosis Venous stasis ulcer of ankle with fat layer exposed Chronic venous hypertension w/ulcer and inflammation involv left side Chronic venous insufficiency Seizures Home Medications ?Medication ?Instructions ?Recorded ?Last Taken ?Type blood pressure monitor #1 ea 12/12/22 Unknown Rx amlodipine 5 mg tablet See Rx Instructions .Route 0 12/10/24 03/03/25 Rx .COMPLEX #90 tabs escitalopram oxalate 10 mg tablet 10 mg PO DAILY #90 t abs 12/10/24 03/04/25 Rx (Lexapro) tamsulosin 0.4 mg capsule (Flomax) 0.4 mg PO QHS #90 c aps 12/10/24 03/03/25 Rx apixaban 5 mg tablet (Eliquis) 5 mg PO BID #60 tabs 03/04/25 Rx lisinopril 20 1 tab PO DAILY 03/04/2502/16 History mg-hydrochlorothiazide 12.5 mg tablet clindamycin HCl 300 mg capsule 300 mg PO Q6H #40 CAPSU LES 03/23/25 Unknown Rx (Cleocin HCl) Allergy/AdvReac Type Severity Reaction Status Date / Time Penicillins Allergy Unknown UNKNOWN Verified 03/23/25 17:53 Family History Father Angina at rest Anxiety Diabetes Myocardial infarction Heart disease Hypertension Hyperlipidemia Respiratory disease Cancer esophageal Mother Cancer lung Depression Hormone disorder Seizures Osteoporosis Brother Myocardial infarction Hyperlipidemia Surgical History History of thrombectomy History of incision and drainage H/O foot surgery History of hemorrhoidectomy Hx of hand surgery History of nasal surgery Social History household members: significant other housing: house current occupational status: employed current occupation: [employer] sexually active: Yes Smoking Status: Former smoker quit date: 11/26/24 Electronic Cigarette Use: not used alcohol intake: current alcohol intake frequency: holidays/special occasions only substance use type: former substance user Date of last use: marijuana what type of physical activity do you participate in: walking and additional details: lifting frequency: 5-6 times per week seatbelt use: always do you feel safe at home: Yes ROS ROS ED ROS Narrative Fever. Left calf pain, redness and swelling. Constitutional Constitutional ED: Reports chills and fever(s) Eyes Eyes: Denies blurry vision ENT ENT ED: Denies ear pain Cardiovascular Cardiovascular: Denies chest pain Respiratory/Chest Respiratory/Chest: Denies cough or dyspnea Gastrointestinal Gastrointestinal: Denies abdominal pain Genitourinary Genitourinary ED: Denies dysuria or hematuria Musculoskeletal Musculoskeletal: Denies arthralgias or back pain Integumentary Reports rash; Denies abscess or Abrasions Neurologic Neurologic: Denies headache(s) Psychiatric Psychiatric: Denies anxiety Endocrine Endocrinology: Denies cold intolerance Hematologic/Lymphatic Hematologic/Lymphatic: Reports none Allergic/Immunologic Allergic/Immunologic ED: Denies mouth swelling, tongue swelling or urticaria EXAM Physical Exam Narrative Exam Narrative: 64-year-old male no acute distress. Vital signs stable afebrile. H EENT exam pupils round react light. Mytrex members. Neck nontender no JVD. Lungs clear to auscultation bilaterally. Heart regular rhythm rate about 65 no murmur. Chest wall ribs nontender. Abdomen soft nontender. Moving all 4 extremities. Neurovascular intact. Left lower leg swollen. Calf redness over basically the entire posterior calf. Left foot neurovascularly intact with normal dorsi plantarflexion. Normal motor strength. Normal sensation. Neurologically is awake and alert. No focal motor deficits. Leg exam is consistent with a cellulitis. Const Vital Signs: 03/23/25 17:53 03/23/25 17:57 03/23/25 18:57 Temperature 98.8 F 98.8 F 98.8 F Temperature Source Oral Oral Oral Pulse Rate 65 65 59 L Respiratory Rate 18 18 18 Blood Pressure 146/92 H 146/92 H 119/72 Blood Pressure Mean 110 110 87 Pulse Ox 97 97 93 Oxygen Delivery Method Room Air Room Air Room Air 03/23/25 19:00 Temperature 98.8 F Temperature Source Oral Pulse Rate 60 Respiratory Rate 18 Blood Pressure 119/72 Blood Pressure Mean 87 Pulse Ox 94 Oxygen Delivery Method Room Air Positive well nourished and well developed; Negative for cachectic, contracturesor unkempt General Appearance ED: well developed and NAD; Negative for unkempt, cachectic, contractures, cyanotic, diaphoretic or pallor Nutritional Appearance: Negative for cachectic HEENT Reports moist mucous membranes Eyes PERRL and EOMs intact bilaterally Neck no lymphadenopathy, supple and no JVD Chest Wall inspection of chest normal and palpation of chest normal Resp normal respiratory effort and clear to auscultation bilaterally Cardio regular rate, regular rhythm, S1 normal heart sound, S2 normal heart sound and no murmurs GI normal to inspection, nondistended, normoactive bowel sounds, non-tender, non-distended and no masses Palpation: soft; Negative for tender, guarding or rebound tenderness present Back/Spine no CVA tenderness Extremity Negative for normal to inspection Extremity Narrative: Left calf edematous, tender and cellulitis. From basically the ankle up to justbelow the knee. No lymphangitic streaking. No inguinal lymphadenopathy. No crepitance. No necrotic skin. No sloughing of skin. Left foot is neurovascularly intact with normal dorsi plantarflexion. No signs of septic joint. General Extremety ED: Yes edema and tenderness General Extremity: edema Neuro oriented x3 and CN's II-XII intact bilaterally Sensorium / Orientation: alert; Negative for orientation impaired, lethargic or stuporous Motor Exam: strength 5/5 throughout Psych mental status grossly normal Appearance: Negative for unkempt Skin No no rashes or lesions noted General Skin Exam: Negative for jaundice or pallor Rashes: rashes noted MDM MDM MDM Narrative Medical decision making narrative: 64-year-old male left lower extremity cellulitis. He has reportedly a penicillin allergy when he developed a rash as a child. We started on clindamycin IV. Screening labs to be obtained. He had a history of DVT but he is on Eliquis and IV think this is obvious cellulitis and not a DVT. I do not think he needs venous studies. Repeat exam at 8:05 PM patient doing well. I reevaluated his left calf he has acellulitis but it is not spread it is not going up his leg. There is no lymphangitic streaking. There is no necrotic skin. Foot is neurovascularly intact. There is no crepitance. And there is no inguinal lymphadenopathy. We discussed options of admission versus home oral antibiotics. He much prefers togo home and knows return if he is getting worse instead of better. He was givena dose of clindamycin IV here. Patient be written for clindamycin 304 times a day for 10 days outpatient follow-up. History & Record Review Discussion w/independent historian: Patient and Family Additional record(s) reviewed:: Prior inpatient record, Prior outpatient record,Prior ED visit and Prior labs Lab Data Attestation: I reviewed the patient's lab results. Lab results narrative: CBC unremarkable white count 8. H&H 14 and 42. Platelets 232. Electrolytes show gap 11. BUN of 31 creatinine 1.1. Glucose 105. Labs: Laboratory Results - last 24 hr 03/23/25 18:43 WBC 8.1 RBC 4.84 Hgb 14.6 Hct 42.2 MCV 87.2 MCH 30.2 MCHC 34.6 RDW Std Deviation 41.1 RDW Coeff of Adrian 12.9 Plt Count 232 MPV 10.1 Immature Gran % (Auto) 0.500 Neut % (Auto) 65.8 Lymph % (Auto) 22.8 Craig % (Auto) 7.5 Eos % (Auto) 2.8 Baso % (Auto) 0.6 Absolute Neuts (auto) 5.3 Absolute Lymphs (auto) 1.85 Nucleated RBC % 0 Sodium 137 Potassium 3.8 Chloride 102 Carbon Dioxide 24.6 Anion Gap 11 BUN 31 H Creatinine 1.17 Estim Creat Clear Calc 89.43 Est GFR (MDRD) Non-Af 70 BUN/Creatinine Ratio 26.5 H Glucose 105 H Calcium 8.7 Discharge Plan Triage Chief Complaint: Cellulitis ED Provider: Mateo Hoffman Dx/Rx/DC Orders Clinical Impression: Cellulitis, History of deep vein thrombosis, Chronic anticoagulation Instructions: ED Cellulitis Prescriptions: New clindamycin HCl [Cleocin HCl] 300 mg capsule 300 mg PO Q6H Qty: 40 0RF No Action (DME) blood pressure monitor Kit See Rx Instructions .Route Qty: 1 0RF Rx Instructions: As directed amlodipine 5 mg tablet See Rx Instructions .ROUTE .COMPLEX Qty: 90 1RF Dose Instruction: TAKE 1 TABLET BY MOUTH AT BEDTIME Rx Instructions: TAKE 1 TABLET BY MOUTH AT BEDTIME escitalopram oxalate [Lexapro] 10 mg tablet 10 mg PO DAILY Qty: 90 1RF tamsulosin [Flomax] 0.4 mg capsule 0.4 mg PO QHS Qty: 90 1RF lisinopril-hydrochlorothiazide 20-12.5 mg tablet 1 tab PO DAILY Eliquis 5 mg tablet 5 mg PO BID Qty: 60 2RF Primary Care Provider: Kelsey Jacobs Referrals: Kelsey Jacobs MD [Primary Care Provider] - 3-5 Days Activity Restrictions/Additional Instructions: Soft tissue infection called cellulitis of the left lower leg. Tylenol for pain. The antibiotic clindamycin 4 times a day for the next 10 days. Return if getting worse if you feel worse or if the infection is spreading up your leg past her knee. Follow-up with your doctor in the next several days to ensure this is improving instead of getting worse. Elevate your leg to decrease pain and swelling. Print Language: Malian Disposition Disposition: Home, Self Care What to do if you have Problems For any increased pain, shortness of breath, bleeding, nausea or vomiting, chestpain, or any unexpected problems, contact your Primary Care Provider. Call [facility] ([phone]) or report to the closest Emergency Room. Call 911 if necessary. 03/23/252013 <Electronically signed by Mateo Hoffman MD> Cosigner Signature (if applicable): CC: Dr. Kelsey Jacobs MD ~ Signed [facility] Work Phone: [phone]) 250-511504-17-2025 Discharge summary [facility] Medical Records Department [address] [place] [id number] Emergency Department Summary 03/04/25 MR#: [id number] Acct: [id number] Name: SUKI ADORNO Rep #:[id number] : 1960 64 From: Blake Andrea MD PCP: Dr. Kelsey Jacobs MD Status:REG ER Location: ED HPI History of Present Illness Chief Complaint: Chest Pain Detail of Chief Complaint: Acute shortness of breath with heaviness xiphoid region Informant: patient Onset/Context/Timing Onset: Today and Hours Context: Sudden Onset Timing: Continuous Quality: Discomfort heaviness Location: Xiphoid region Current Severity: Mild Maximum Severity: Moderate Worsened by: Nothing Relieved by: Nothing Associated Symptoms Associated Symptoms: Dyspnea Narrative Narrative: Patient is a 64-year-old man who is a former smoker. He was diagnosed November of this year with a saddle pulmonary embolus with elevated troponin and BNP. Hepresents with abrupt onset of shortness ofbreath and discomfort in the xiphoid region. This is similar to when he had a pulmonary embolus. Hedoes have history of hypertension on lisinopril and amlodipine. He is on apixaban 5 mg. He has not missed any doses. He does complain of some discomfort left leg. Thediscomfort is anterior. He has chronic swelling. There is no history of trauma. He denies history of peptic ulcer disease, hiatal hernia or reflux. Hedenies black or maroon-colored stool. He has no intolerance to greasy food. Patient has no other symptoms. Prior similar symptoms: Yes Recent Illness/Hospitalization: No PFSH [facility] Medical History Acute saddle pulmonary embolism COVID Tinnitus Marijuana use Thrombosis Wears glasses Depression Alcohol use Arthritis Prostate disease Restless legs Migraine headache Smoker BiPAP (biphasic positive airway pressure) dependence Shortness of breath on exertion History of stress test Hypertension Hx of hypoglycemia Hx of migraines Hx of seasonal allergies Lipodermatosclerosis Venous stasis ulcer of ankle with fat layer exposed Chronic venous hypertension w/ulcer and inflammation involv left side Chronic venous insufficiency Seizures Home Medications ?Medication ?Instructions ?Recorded ?Last Taken ?Type blood pressure monitor #1 ea 12/12/22 Unknown Rx amlodipine 5 mg tablet See Rx Instructions .Route 0 12/10/24 03/03/25 Rx .COMPLEX #90 tabs escitalopram oxalate 10 mg tablet 10 mg PO DAILY #90 t abs 12/10/24 03/04/25 Rx (Lexapro) tamsulosin 0.4 mg capsule (Flomax) 0.4 mg PO QHS #90 c aps 12/10/24 03/03/25 Rx apixaban 5 mg tablet (Eliquis) 5 mg PO BID #60 tabs 03/04/25 Rx lisinopril 20 1 tab PO DAILY 03/04/2502/16 History mg-hydrochlorothiazide 12.5 mg tablet Allergy/AdvReac Type Severity Reaction Status Date / Time Penicillins Allergy Unknown UNKNOWN Verified 03/04/25 09:44 Family History Father Angina at rest Anxiety Diabetes Myocardial infarction Heart disease Hypertension Hyperlipidemia Respiratory disease Cancer esophageal Mother Cancer lung Depression Hormone disorder Seizures Osteoporosis Brother Myocardial infarction Hyperlipidemia Surgical History History of thrombectomy History of incision and drainage H/O foot surgery History of hemorrhoidectomy Hx of hand surgery History of nasal surgery Social History household members: significant other housing: house current occupational status: employed current occupation: [employer] sexually active: Yes Smoking Status: Former smoker quit date: 11/26/24 Electronic Cigarette Use: not used alcohol intake: current alcohol intake frequency: holidays/special occasions only substance use type: former substance user Date of last use: marijuana what type of physical activity do you participate in: walking and additional details: lifting frequency: 5-6 times per week seatbelt use: always do you feel safe at home: Yes ROS ROS ED Constitutional Constitutional ED: Denies chills, fever(s), subjective or sweats Eyes Eyes: Denies blurry vision or change in vision ENT ENT ED: Denies ear pain, rhinorrhea or sore throat Cardiovascular Cardiovascular: Reports chest pain; Denies orthopnea, palpitations, paroxysmal nocturnal dyspnea orracing heartbeat Respiratory/Chest Respiratory/Chest: Reports dyspnea and dyspnea on exertion; Denies cough, orthopnea or paroxysmal nocturnal dyspnea Gastrointestinal Gastrointestinal: Denies abdominal pain, melena, nausea or vomiting Musculoskeletal Musculoskeletal: Denies arthralgias, back pain or myalgias Integumentary Reports rash and other Details: Patient has small wound with erythema mid anterior medial left leg.There is also evidence of venous stasis changes. Neurologic Neurologic: Denies paresthesias or weakness Psychiatric Psychiatric: Denies anxiety Endocrine Endocrinology: Denies cold intolerance or heat intolerance Hematologic/Lymphatic Hematologic/Lymphatic: Reports easy bruising Allergic/Immunologic Allergic/Immunologic ED: Denies mouth swelling or tongue swelling EXAM Physical Exam Const Vital Signs: 03/04/25 09:42 03/04/25 09:46 03/04/25 10:34 Temperature 98.3 F Temperature Source Oral Pulse Rate 62 53 L Respiratory Rate 19 H 14 Respiratory Effort Normal Blood Pressure 128/88 H 115/77 Blood Pressure Mean 101 89 Pulse Ox 94 99 Oxygen Delivery Method Room Air 03/04/25 11:00 03/04/25 12:00 Temperature Temperature Source Pulse Rate 56 L 58 L Respiratory Rate 17 14 Respiratory Effort Blood Pressure 135/88 H 148/88 H Blood Pressure Mean 103 108 Pulse Ox 93 94 Oxygen Delivery Method Positive well nourished and well developed Constitutional Narrative: BMI is 36.9. Vital signs are unremarkable. He is not hypoxic. He was hypoxic when he presented withthe saddle pulmonary embolus. General Appearance ED: well developed; Negative for pallor HEENT Reports moist mucous membranes HEENT Narrative: Head is atraumatic normocephalic. Ears normal. Nares patent. Patient is wearing safety glasses. Eyes PERRL and EOMs intact bilaterally General Eye ED: Negative for pale conjunctiva or scleral icterus Neck no lymphadenopathy, supple and no JVD Chest Wall inspection of chest normal and palpation of chest normal Resp normal respiratory effort Cardio regular rate, regular rhythm, S1 normal heart sound, S2 normal heart sound and no murmurs GI normal to inspection, nondistended, normoactive bowel sounds, non-tender, non- distended and no masses; Negative for hepatosplenomegaly GI Narrative: Negative clinical Rhoades sign. Extremity Extremity Narrative: Swelling of both right and left leg. There is a wound medial mid anterior left leg that is slightlytender. There is no tenderness on the distribution deep venous system and there is no palpable cords. There is no venous dilatation. Neuro oriented x3, CN's II-XII intact bilaterally and no sensory deficits noted Sensorium / Orientation: alert Psych mental status grossly normal Skin Skin Narrative: Described under the extremity portion of the EMR. General Skin Exam: elasticity normal; Negative for jaundice or pallor MDM MDM MDM Narrative Medical decision making narrative: Since patient has similar presentation for PE will obtain D-dimer. Troponin wasobtained as well since his troponins were elevated when he had his prior PE. Differential diagnosis would be cardiac versus noncardiac. Noncardiac would include pulmonary embolus, pneumonia, also need to consider GI i.e.reflux, biliary disease. Workup included EKG, chest x-ray appropriate blood work. Chest x-ray was obtained to determine if there is any obvious pulmonary findingsto suggest other causes. Lab Data Attestation: I reviewed the patient's lab results. Lab results narrative: CBC is normal. Comprehensive metabolic panel is unremarkable. BUN BUN/creatinine ratio was elevatedat 23-1. Lactate is less than 1. Troponin isnormal at 10. D- dimer apparently was canceled and is being redrawn. Labs: Laboratory Results - last 24 hr 03/04/25 03/04/25 03/04/25 09:47 10:20 11:58 WBC 6.3 RBC 5.46 Hgb 16.3 Hct 47.5 MCV 87.0 MCH 29.9 MCHC 34.3 RDW Std Deviation 39.7 RDW Coeff of Adrian 12.6 Plt Count 229 MPV 10.3 Immature Gran % (Auto) 0.500 Neut % (Auto) 52.8 Lymph % (Auto) 34.1 Craig % (Auto) 8.0 Eos % (Auto) 3.8 Baso % (Auto) 0.8 Absolute Neuts (auto) 3.3 Absolute Lymphs (auto) 2.13 Nucleated RBC % 0 D-Dimer Quant (PE/DVT) Cancelled 0.30 Sodium 137 Potassium 4.3 Chloride 101 Carbon Dioxide 24.9 Anion Gap 11 BUN 28 H Creatinine 1.18 Estim Creat Clear Calc 88.03 Est GFR (MDRD) Non-Af 70 BUN/Creatinine Ratio 23.6 H Glucose 96 Lactic Acid < 1.0 Calcium 9.1 Total Bilirubin 0.40 AST 23 ALT 19 Alkaline Phosphatase 85 Troponin T High Sens 10 Troponin T Hi Sens 2 Hr 12 Total Protein 7.4 Albumin 4.4 Globulin 3.1 Albumin/Globulin Ratio 1.4 D-dimer is normal. Lactate is normal. Awaiting results of t repeat troponin. Initial was 10, which is normal second troponin is 12 with a delta of 2. This is negative. Therefore will discharge to home. Radiography Chest X-Ray - ED: 2 View, Read by ED Physician (Review interpreted by me at 1041. There are some minimal chronic changes. Cardiac silhouette size normal. Lung parenchyma is unremarkable. No effusion,infiltrate cephalization. There is no Insa pneumothorax. Osseous structures reveal mild degenerative changes inthe mid dorsal vertebral jez) and No Acute Disease (Unchanged from November chest x-ray.) Diagnostic Testing: Clinical Impression(s) from Imaging Studies Chest X-Ray 03/04/25 10:28 IMPRESSION: NO ACUTE FINDINGS. Reading Location: [facility] Rhythm Strip Rhythm Strip: Bradycardia Rate: 52 Ectopy: None EKG Initial EKG: Attestation: I personally reviewed and interpreted this EKG as follows: Interpretation: Sinus Bradycardia (Rate is 59. DE intervals 170 ms Rickers duration 78 ms. QT duration 120 ms. Voltage is decreased. Computer isreading possible inferior infarct. The morphology of the QRS complex and ST segment is unchanged from November 25, 2024. The amplitude is slightly less today.) Prior: Unchanged (November 25, 2024) Treatment and Re-Evaluation :: Patient was informed of results. Plan is to discharge to home Discharge Plan Triage Chief Complaint: Chest Pain ED Provider: Blake Andrea Dx/Rx/DC Orders Clinical Impression: Chest discomfort, Chronic venous insufficiency, Acute dyspnea, Hx of pulmonary embolus, Anticoagulant long-term use Instructions: ED Chest Pain, Uncertain Cause Prescriptions: No Action (DME) blood pressure monitor Kit See Rx Instructions .Route Qty: 1 0RF Rx Instructions: As directed amlodipine 5 mg tablet See Rx Instructions .ROUTE .COMPLEX Qty: 90 1RF Dose Instruction: TAKE 1 TABLET BY MOUTH AT BEDTIME Rx Instructions: TAKE 1 TABLET BY MOUTH AT BEDTIME escitalopram oxalate [Lexapro] 10 mg tablet 10 mg PO DAILY Qty: 90 1RF tamsulosin [Flomax] 0.4 mg capsule 0.4 mg PO QHS Qty: 90 1RF lisinopril-hydrochlorothiazide 20-12.5 mg tablet 1 tab PO DAILY Eliquis 5 mg tablet 5 mg PO BID Qty: 60 2RF Primary Care Provider: Kelsey Jacobs Referrals: Kelsey Jacobs MD [Primary Care Provider] - 3-5 Days Print Language: Malian Disposition Disposition: Home, Self Care What to do if you have Problems For any increased pain, shortness of breath, bleeding, nausea or vomiting, chestpain, or any unexpected problems, contact your Primary Care Provider. Call [facility] ([phone]) or report tothe closest Emergency Room. Call 911 if necessary. 03/04/25 1247 Cosigner Signature (if applicable): CC: Dr. Kelsey Jacobs MD ~ Signed [facility]04-17-2025 Radiology Diagnostic study note [facility] [address] [place] [address] Chest PA and Lateral MR#: [id number] Acct: [id number] Name: SUKI ADORNO Rep #: [id number] : 1960 M 64 From: Naif De Oliveira MD PCP: Dr. Kelsey Jacobs MD Status: REG ER Study:Chest PA and Lateral Date of Exam: 03/04/25 Exam# [id number] Ordering Dr: Alpesh Andrea MD PROCEDURE: CHEST PA AND LATERAL 03/04/2025 REASON FOR EXAM: SUBXIPHOID DISCOMFORT AND DYSPNEA TECHNIQUE: Frontal and lateral views of the chest. COMPARISON: None FINDINGS: Hardware: EKG electrodes are seen. Heart: The heart size is normal. Mediastinum: The mediastinal contour is unremarkable. Lungs: The lungs are clear. Bones: Degenerative changes are identified within the thoracic spine. RAD/Chest PA and Lateral IMPRESSION: NO ACUTE FINDINGS. Reading Location: [facility] CC: Dr. Kelsey Jacobs MD; Dr. Blake Andrea MD ~ Cadd Instructor: Signed [facility]01-23-2025 Evaluation note* Diagnosis Onset Date Resolution Status Admit Date Acute respiratory failure with hypoxemia acute December 10 7:22am Moderately severe depression acute December 10, 2024 7:22am Chronic venous hypertension w/ulcer and inflammation involv left side chronic December 10 7:22am Obstructive sleep apnea noneactive J anuary 2024 7:22am Mild anxiety noneactive November 7:22am Saddle pulmonary embolus noneactive December 10, 2024 7:22am Influenza vaccination declined noneactive December 10 7:22am Erectile dysfunction noneactive Mohit mccauley 2024 7:22am Essential hypertension noneactive Ja nuary 2024 7:22am Urinary dribbling noneactive December 10, 2024 7:22am Quit smoking noneactive November 7:22am Hospital discharge follow-up noneact maru December 10, 2024 7:22am [facility] Work Phone: 1(876) 531-229601-11-2025 [facility] Medical Records Department [address] [place] [address] Discharge Summary 11/28/24 1146 MR#: [id number] Acct: [id number] Name: SUKI ADORNO Rep #: [id number] : 1960 64 From: Hemant Castillo DO PCP: Dr. Kelsey Jacobs MD Status:DIS IN [id number] Prov[facility] Date of Admission: 11/26/24 Date of Discharge: 11/28/24 Primary Care Physician: Dr. Kelsey Jacobs MD Consultations 11/26/24 04:25 Consult: Vascular Surgery Routine Consulting Provider: Shashank Millan Reason for Consult: saddle PE EMERGENT Consult: No Notified: Yes Date Notified: 11/26/24 Time Notified: 04:25 Method of Notification: ED Physician Initiated 11/26/24 07:38 Consult: Sample Supervisor / Pulmonary Medicine Routine Consulting Provider: Intensivists/Pulmonary Med Reason for Consult: PE EMERGENT Consult: No Notified: Yes Date Notified: 11/26/24 Time Notified: 09:06 Method of Notification: Text Reason For Visit: ACUTE SADDLE PE W/ HYPOXIA Diagnosis Discharge Diagnosis (1) Acute saddle pulmonary embolism: Status: Acute Code(s): I26.92 - Saddle embolus of pulmonary artery without acute cor pulmonale Plan 1. Acute pulmonary embolism-patient was switched to Eliquis today from his heparin drip, he will be reevaluated tomorrow #2 hypoxia secondary to #1-oxygen will be weaned if possible #3 essential hypertension-patient will remain on his present medications #4 chronic depression-patient is on Lexapro Total clinical time spent by myself addressing patient's medical issues, reviewing all of his data, and collaborating with patient's care team: 35 minutes Medications at Discharge Home Medications blood pressure monitor #1 ea 12/12/22 tamsulosin 0.4 mg capsule (Flomax) 0.4 mg PO QHS #90 caps 06/20/24 amlodipine 5 mg tablet See Rx Instructions .Route .COMPLEX #90 tabs 05/27/24 escitalopram oxalate 10 mg tablet (Lexapro) 10 mg PO DAILY #90 tabs 05/27/24 lisinopril 20 mg-hydrochlorothiazide 12.5 mg tablet See Rx Instructions .Route .COMPLEX #90 tabs 05/27/24 apixaban 5 mg tablet (Eliquis) 10 mg (2 x 5 mg) PO BID #64 tabs 11/28/24 Hospital Course Operations None Procedures - (Percutaneous mechanical thrombectomy of the bilateral pulmonary arteries, selective pulmonary angiogram) Summary of Care Provided Minutes Spent on Discharge: 31 Hospital Course: This 64-year-old white male was seen in the emergency room at [facility] with complaints of worsening shortness of breath. The shortness of breath had worsened over a period of 2 weeks. Workup in the emergency room included a CTA of the chest which showed extensive pulmonary emboli including a saddle embolus. He required 4 L of oxygen to maintain his pulse ox. Beta natruretic peptide was elevated at 353, the ER physician discussed the case with the vascular surgeon who consented to see the patient after he was admitted. Patient was admitted to PCU and evaluated by pulmonary medicine also, it was felt that he would benefit from a thrombectomy and the patient underwent a successful thrombectomy and had no complications. He eventually was weaned off oxygen and did not require any oxygen at the time of discharge. Patient was transitioned from heparin to Eliquis during his hospitalization. On 11/28/2024, patient was seen and examined: On examination he appeared in good health and spirits. Vital signs as documented. Skin warm and dry and without overt rashes. Neck without JVD, neck was supple, trachea midline, thyroid was normal. Lungs clear bilaterally, normal air movement was noted. Heart exam notable for regular rhythm, normal sounds and absence of murmurs, rubs or gallops. Abdomen unremarkable and without evidence of organomegaly, masses, or abdominal aortic enlargement. Bowel sounds are present, abdomen is not distended. Extremities nonedematous, no cyanosis was noted, no clubbing was noted. Neuro: Cranial nerves II through XII are grossly intact, no focal motor deficits were noted, sensation to light touch and pinprick intact, motor exam 5/5 throughout. Psych: Patient is alert and oriented x3, he does not appear anxious or depressed, he does not appear agitated. Patient appears stable for discharge home on 11/28/2024, patient was cautioned not to use any medication for pain except for Tylenol, he was not to use ibuprofen, Aleve, or naproxen. He was also instructed not to use any aspirin or nonsteroidal anti-inflammatory agents. Weight / BMI Weight Weight: 122.5 kg Body Mass Index (BMI) 36.6 ABG / Lab / Microbiology Data 11/26/24 08:55 11/26/24 08:55 Microbiology: Microbiology 11/25/24 22:54 Mucosa - Nasopharyngeal SARS-CoV-2, Influenza RSV (PCR) - Final D/C Instructions Discharge Diet: No restrictions Weight Bearing Status: Full weight bearing (more content not included)...[facility]01-09-2025 Evaluation note* Diagnosis Onset Date Resolution Status Admit Date Hypoxia resolved November 26 025 12:57am Acute saddle pulmonary embolism inactive November 26 12:57am DVT (deep venous thrombosis) acute December 02, 2024 2:11pm Chronic venous hypertension w/ulcer and inflammation involv left side chronic December 02 025 2:11pm Acute saddle pulmonary embolism inactive December 02 2:11pm Acute respiratory failure with hypoxemia acute December 10 7:22am Moderately severe depression acute December 10, 2024 7:22am Chronic venous hypertension w/ulcer and inflammation involv left side chronic December 10 025 7:22am Obstructive sleep apnea noneactive J anuary 2024 7:22am Mild anxiety noneactive November 7:22am Saddle pulmonary embolus noneactive December 10, 2024 7:22am Influenza vaccination declined noneactive December 10 7:22am Erectile dysfunction noneactive Mohit mccauley 2024 7:22am Essential hypertension noneactive Foreign patel 2024 7:22am Urinary dribbling noneactive December 10, 2024 7:22am Quit smoking noneactive November 7:22am Hospital discharge follow-up noneact maru December 10, 2024 7:22am [facility] Work Phone: 1(105) 469-155103-14-2023 History and physical note Author Dr. Brooks [facility] January 29, 2023 1:35pm Note Date/Time January 29, 2023 1:3 5pm [facility] [address] [place] [address] H&P Exam - Wound Care 01/29/23 1325 MR#: [id number] Acct: [id number] Name: SUKI ADORNO Rep #:[id number] : 1960 62 From: Edgar Yoder PCP: Dr. Kelsey Jacobs MD Status:REG RCR Location: History of Present Illness Date of Service: 01/29/23 Chief Complaint: Venous stasis ulceration, chronic venous hypertension with inflammation and ulceration, leg swelling, leg edema?left lower extremity History of Wound: This is a 62-year-old obese male who presented with an ulceration overlying the left medial malleolus. According to the patient and his significant-other female friend, the ulceration had been present for more than 2 years. The patient feels as though it is due to a foreign body which became stuck between his boot and skin causing a pressure ulceration. However, from a clinical standpoint, it is much more likely that this is related to chronic venous hypertension and associated venous disease. The patient relates swelling and edema in his lower extremities, which is worse at the end of each day. 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 He also sleeps in a recliner, although he insists that his lower extremities are at heart level, or higher. He is not very active during his time at home, often sitting for prolonged periods. The patient is a smoker,smoking 1 pack of cigarettes per day for many years. Appropriate counseling hasbeen undertaken as to the adverse effects of tobacco use. With respect to his ulceration, he was initially placed on oral Augmentin in the Emergency Department for cellulitis, and completed a course of doxycycline more recently, as prescribed by his primary care physician. The patient denies a history of deep vein thrombosis. The patient suffers from hypertension and obesity. His BMI is 40.3. The patient's history is negative for myocardial infarction, cerebrovascular accident, diabetes mellitus, pulmonary disease, renal disease, thyroid disease, and hyperlipidemia. [facility] Medical History Chronic venous hypertension w/ulcer and inflammation involv left side Chronic venous insufficiency DVT (deep venous thrombosis) Hx of hypoglycemia Hx of migraines Hx of seasonal allergies Hypertension Lipodermatosclerosis Seizures Venous stasis ulcer of ankle with fat layer exposed Wears glasses Home Medications amlodipine 5 mg tablet 5 mg PO DAILY #30 tabs 11/19/22 [Rx Last Taken Unknown] blood pressure monitor #1 ea 12/12/22 [Rx Last Taken Unknown] ibuprofen 800 mg tablet 800 mg PO BID PRN 12/12/22 [History Last Taken Unknown] nicotine (polacrilex) 4 mg buccal lozenge 4 mg buccal Q4H PRN nicotine cravings #108 ea 12/12/22 [Rx Last Taken Unknown] escitalopram oxalate 10 mg tablet (Lexapro) 10 mg PO DAILY #30 tabs 01/08/23 [Rx Last Taken Unknown] lisinopril 20 mg-hydrochlorothiazide 12.5 mg tablet 1 tab PO DAILY #30 tabs 01/08/23 [Rx Last Taken Unknown] nicotine 21 mg/24 hr daily transdermal patch (Nicoderm CQ) 1 patch transdermal DAILY #28 ea 01/21/23 [Rx Last Taken Unknown] Allergy/AdvReac Type Severity Reaction Status Date / Time No Known Allergies Allergy Verified 01/22/23 16:33 Family History Father Angina at rest Anxiety Diabetes Myocardial infarction Heart disease Hypertension Hyperlipidemia Respiratory disease Cancer esophageal Mother Cancer lung Depression Hormone disorder Seizures Osteoporosis Brother Myocardial infarction Hyperlipidemia Surgical History H/O foot surgery History of hemorrhoidectomy History of nasal surgery Hx of hand surgery Social History household members: significant other housing: house current occupational status: employed current occupation: [employer] sexually active: Yes Smoking Status: Current every day smoker tobacco type: cigarettes quit status: considering quitting alcohol intake: current alcohol intake frequency: holidays/special occasions only substance use type: marijuana what type of physical activity do you participate in: walking and additional details: lifting frequency: 5-6 times per week seatbelt use: always do you feel safe at home: Yes Vital Signs Vital Signs Vital Signs: 01/29/23 08:09 Temperature 97.5 F L Temperature Source Temporal Pulse Rate 70 Respiratory Rate 20 H Blood Pressure 150/78 H Blood Pressure Mean 102 Blood Pressure Source Monitor Weight Weight: 285 lb Body Mass Index (BMI) 40.3 Physical Exam Const alert, oriented x3, no apparent distress and well nourished Constitutional Narrative: The patient is obese. He is friendly and conversant. General Appearance: cooperative, comfortable, well kempt and well developed Orientation / Consciousness: awake, oriented to person, oriented to place and oriented to time Exam Limitations: no limitations HEENT normocephalic, head/scalp atraumatic and hearing grossly normal bilaterally Head and Scalp: normal to inspection, normocephalic and atraumatic External Ear: external ears normal Eyes PERRL and EOMs intact bilaterally General Eye: normal appearance of both eyes Neck full ROM Resp normal respiratory effort, normal air movement, no retractions and no use of accessory muscles Effort and Inspection: able to speak in complete sentences Extremity no calf tenderness General Extremity: Negative for clubbing or cyanosis Skin Wound Narrative: The venous ulcerations in the patient's left lower extremity are now completely healed and epithelialized. Mild left lower extremity swelling and edema are noted. Hyperpigmentation and lipodermatosclerosis are noted in the gaiter areasbilaterally, more pronounced in the left lower extremity. Neuro oriented x3, CN's II-XII intact bilaterally, moves all extremities and no focal motor deficits Sensorium / Orientation: awake, alert, oriented to person, oriented to place andoriented to time Psych Appearance: grossly normal and appropriate Attitude: calm Activity / Motor Behavior: appropriate eye contact Speech: normal speech Mood & Affect: euthymic mood Thought Process: normal thought process Thought Content: normal thought content Attention / Concentration: attention grossly intact Debridement Note Debridement Note No debridement was completed: No debridement was completed today (There are no open wounds or ulcerations.) Post-Debridement Measurements and Additional Note: Post-Debridement Measurements/Treatment MOSES - Nurse 1 - General Ulcer Assessment Start: 01/29/23 08:09 Freq: Status: Active Protocol: LYLE Activity Type Activity Date Activity User E-sign Co-sign Detail Recorded Client Recorded Date Recorded By Document 01/29/23 08:09 DL [id number] 01/29/23 08:15 DL 01/29/23 08:09 WC - Today's Visit Information Type of service Follow-up Visit (Physician/EXCHANGE CONSULTANT ) Arrival Mode Ambulatory Transfer Assistance None Patient Identification Verified (Name & Yes ) Patient Requires Transmission-Based No Precautions Height and Weight Body Mass Index (BMI) 40.3 BMI Classification Obese Vital Signs Temperature (97.8 F-99.1 F) 97.5 F L Temperature Source Temporal Pulse Rate (60-100) 70 Pulse Location Monitor Respiratory Rate (12-18) 20 H Respiratory rate source Observation Blood Pressure (90/60-120/80) 150/78 H Blood Pressure Mean 102 Source Monitor History Since Last Visit- (Skip if this is Patient's initial visit) Have you changed medications since your No last visit? Any new allergies or adverse reactions No Had a fall/change in ADL's that may No increase risk of falls Signs or symptoms of abuse and/or No neglect since last visit Have you been in the hospital since your No last visit? Has dressing in place as prescribed Yes Has compression in place as prescribed Yes Has offloadiing in place as prescribed N/A Experienced any changes in pain level or No management Pain Scale: 0-10 Numeric Is Patient Pain Free? Yes - Nurse 1 - General Ulcer Measurement Start: 01/29/23 08:09 Freq: Status: Active Protocol: Activity Type Activity Date Activity User E-sign Co-sign Detail Recorded Client Recorded Date Recorded By Document 01/29/23 08:09 DL [id number] 01/29/23 08:15 DL 01/29/23 08:09 Wound Center Nurse 1 #2 LLE post -Current Size (cm) - Length 0 -Current Size (cm) - Width 0 -Current Size (cm) - Depth 0 -Total Square Cm 0 -Photo Taken Yes -Exudate Amt None Present -Wound Margin Flat & Intact -Granulation Amt Large (67-100%) -Granulation Quality [place] -Necrosis Amt None Present (0 %) -Structure Exposed N/A -Texture (Glen-wound Skin Appearance) Scarring -Moisture (Glen-wound Skin Appearance) Dry/Scaly -Color (Glen-wound Skin Appearance) Hemosiderin Staining -Temperature (Glen-wound Skin No Abnormality Appearance) (Pt Warm) -Tenderness on Palpation (Glen-wound No Skin Appearance) -Ulcer Cleansing Wound Cleanser -Foul Odor after Cleansing No #1 left medial ankle -Current Size (cm) - Length 0.1 -Current Size (cm) - Width 0.1 -Current Size (cm) - Depth 0.1 -Total Square Cm 0.01 -Photo Taken Yes -Exudate Amt None Present -Wound Margin Flat & Intact -Granulation Amt Large (67-100%) -Granulation Quality [place] -Necrosis Amt None Present (0 %) -Structure Exposed N/A -Texture (Glen-wound Skin Appearance) Scarring -Moisture (Glen-wound Skin Appearance) Dry/Scaly -Color (Glen-wound Skin Appearance) Hemosiderin Staining -Temperature (Glen-wound Skin No Abnormality Appearance) (Pt Warm) -Tenderness on Palpation (Glen-wound No Skin Appearance) -Ulcer Cleansing Rinsed/ Irrigated with Saline -Foul Odor after Cleansing No Right Calf (cm) 43.7 Right Ankle (cm) 28 WC - Nurse 2 - General Ulcer CM Notes Start: 01/29/23 08:09 Freq: Status: Active Protocol: Activity Type Activity Date Activity User E-sign Co-sign Detail Recorded Client Recorded Date Recorded By Document 01/29/23 11:47 PL [id number] 01/29/23 11:48 PL 01/29/23 11:47 Wound Center Nurse 2 #2 LLE post -Procedure Performed No -Wound/Ulcer Outcome Healed- Epithelialized #1 left medial ankle -Procedure Performed No -Wound/Ulcer Outcome Healed- Epithelialized Pain Scale: 0-10 Numeric Is Patient Pain Free? Yes - Nurse 3 - General Ulcer D/C NN Start: 01/29/23 08:09 Freq: Status: Active Protocol: Activity Type Activity Date Activity User E-sign Co-sign Detail Recorded Client Recorded Date Recorded By Document 01/29/23 08:34 DL [id number] 01/29/23 08:35 DL 01/29/23 08:34 Wound Care Center Nurse 3 #2 LLE post -Ulcer Cleansing Rinsed/ Irrigated with Saline -Foul Odor after Cleansing No Right -Stockings Yes Left -Stockings Yes Treatment Response Procedure Tolerated Well Pain Scale: 0-10 Numeric Is Patient Pain Free? Yes WC - Visit Discharge Discharge Condition Stable Ambulatory Status Ambulatory Transportation Private Auto Notes: Healed/ Discharged Assessment/Plan Assessment/Plan (1) Venous stasis ulcer of ankle with fat layer exposed: CODE(S): I83.003 - Varicose veins of unspecified lower extremity with ulcer of ankle; L97.302 - 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 (2) Chronic venous hypertension w/ulcer and inflammation involv left side: CODE(S): I87.332 - Chronic venous hypertension (idiopathic) with ulcer andinflammation of left lower extremity; L97.929 - Non-pressure chronic ulcer of unspecified part of left lower leg with unspecified severity (3) Chronic venous insufficiency: CODE(S): I87.2 - Venous insufficiency (chronic) (peripheral) (4) Lipodermatosclerosis: CODE(S): I83.10 - Varicose veins of unspecified lower extremity with inflammation (5) Left leg swelling: CODE(S): M79.89 - Other specified soft tissue disorders (6) Leg edema, left: CODE(S): R60.0 - Localized edema (7) Hypertension: CODE(S): I10 - Essential (primary) hypertension (8) Tobacco abuse disorder: CODE(S): Z72.0 - Tobacco use (9) Tobacco abuse counseling: CODE(S): Z71.6 - Tobacco abuse counseling (10) History of seizures: CODE(S): Z87.898 - Personal history of other specified conditions (11) History of hemorrhoidectomy: CODE(S): Z98.890 - Other specified postprocedural states (12) History of hand surgery: CODE(S): Z98.890 - Other specified postprocedural states PLAN: Plan This is a 62-year-old obese male who presented with an ulceration overlying the left medial malleolus. This appeared to be related to chronic venous hypertension with inflammation and chronic venous insufficiency. The patient also experiences swelling and edema in his lower extremities, more pronounced atthe end of the day. A lengthy discussion has been undertaken as to the appropriate means of management relative to the patient's chronic venous disease. Leg elevation has been recommended. The patient has been encouraged to sleep on a flat surface at night. His legs are to be at heart level, or higher, both while sleeping and during daytime hours. Prolonged idle sitting with his legs in a dependent position has been discouraged. Activity has been encouraged, with recruitment of the calf and foot muscle pumps. Weight loss hasalso been recommended. We are to continue compression to the left lower extremity by means of graduated compression stockings of 20 to 30 mmHg compression, knee-high length, which the patient has in his possession. The venous ulceration in the patient's left lower extremity has now completely healed and epithelialized. As result, the patient is to be discharged, and willno longer require follow-up in the wound care facility. However, the patient was recently diagnosed with superficial thrombophlebitis in the right lower extremity, for which conservative treatment measures have been implemented, including the use of graduated compression stockings, active lifestyle, and leg elevation. We are to repeat the venous duplex examination within the next several weeks, to reassess the status of the superficial thrombophlebitis in thepatient's right lower extremity. A venous duplex examination also recently revealed valvular incompetence of the left great saphenous vein below the knee. Recent laboratory results from December 13, 2022, have been reviewed, with results as follows: Glucose 97, BUN 20, creatinine 1.23, total protein 7.6, albumin 3.6, calcium 8.9, AST 20, alkaline phosphatase 97, ALT 40, total bilirubin 0.40, cholesterol 175, triglycerides 184, sodium 140, potassium 4.4, chloride 103, HDL 42, LDL 96, VLDL 37. Once again, the patient has been encouraged to elevate his lower extremities, remain active, avoid prolonged idlestanding and sitting, and to lose weight. The patient is to wear his graduated compression stockings of 20 to 30 mmHg compression bilaterally. The patient hasbeen advised to cease his smoking habit. Given the manifestations related to the patient's chronic venous disease, and findings on his recent venous duplex examination, it is felt that the patient is a candidate for endovenous laser ablation of the left great saphenous vein, a matter which has been discussed with the patient and his significant other at the bedside several times, and again today. The indications and risks have been explained. Expectations have been described. The patient's questions have been answered. The patient is to be discharged from the wound care facility, with anticipation that preauthorization will be obtained and the patient will be scheduled for endovenous laser ablation of the left great saphenous vein in the near future. The patient has indicated his desire to proceed with definitive management of the venous disease in his left lower extremity. Total time: 26 minutes 01/29/23 1335 <Electronically signed by Edgar Brooks MD> Cosigner Signature (if applicable): CC: ~ Signed [facility] Work Phone: 1(186) 974-980702-28-2023 History and physical note Author Dr. Brooks [facility] January 15, 2023 1:55pm Note Date/Time January 15, 2023 1:55pm [facility] [address] [place] [address] H&P Exam - Wound Care 01/15/23 1345 MR#: [id number] Acct: [id number] Name: SUKI ADORNO Rep #:[id number] : 1960 62 From: Edgar Yoder PCP: Dr. Kelsey Jaocbs MD Status:REG R Location: History of Present Illness Date of Service: 01/15/23 Chief Complaint: Venous stasis ulceration, chronic venous hypertension with inflammation and ulceration, leg swelling, leg edema?left lower extremity History of Wound: This is a 62-year-old obese male who presented with an ulceration overlying the left medial malleolus. According to the patient and his significant-other female friend, the ulceration had been present for more than 2 years. The patient feels as though it is due to a foreign body which became stuck between his boot and skin causing a pressure ulceration. However, from a clinical standpoint, it is much more likely that this is related to chronic venous hypertension and associated venous disease. The patient relates swelling and edema in his lower extremities, which is worse at the end of each day. 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 He also sleeps in a recliner, although he insists that his lower extremities are at heart level, or higher. He is not very active during his time at home, often sitting for prolonged periods. The patient is a smoker,smoking 1 pack of cigarettes per day for many years. Appropriate counseling hasbeen undertaken as to the adverse effects of tobacco use. With respect to his ulceration, he was initially placed on oral Augmentin in the Emergency Department for cellulitis, and completed a course of doxycycline more recently, as prescribed by his primary care physician. The patient denies a history of deep vein thrombosis. The patient suffers from hypertension and obesity. His BMI is 40.3. The patient's history is negative for myocardial infarction, cerebrovascular accident, diabetes mellitus, pulmonary disease, renal disease, thyroid disease, and hyperlipidemia. [facility] Medical History Chronic venous hypertension w/ulcer and inflammation involv left side Chronic venous insufficiency DVT (deep venous thrombosis) Hx of hypoglycemia Hx of migraines Hx of seasonal allergies Hypertension Lipodermatosclerosis Seizures Venous stasis ulcer of ankle with fat layer exposed Wears glasses Home Medications amlodipine 5 mg tablet 5 mg PO DAILY #30 tabs 11/19/22 [Rx Last Taken Unknown] blood pressure monitor #1 ea 12/12/22 [Rx Last Taken Unknown] ibuprofen 800 mg tablet 800 mg PO BID PRN 12/12/22 [History Last Taken Unknown] nicotine (polacrilex) 4 mg buccal lozenge 4 mg buccal Q4H PRN nicotine cravings #108 ea 12/12/22 [Rx Last Taken Unknown] nicotine 21 mg/24 hr daily transdermal patch (Nicoderm CQ) 1 patch transdermal DAILY #28 ea 12/12/22 [Rx Last Taken Unknown] escitalopram oxalate 10 mg tablet (Lexapro) 10 mg PO DAILY #30 tabs 01/08/23 [Rx Last Taken Unknown] lisinopril 20 mg-hydrochlorothiazide 12.5 mg tablet 1 tab PO DAILY #30 tabs 01/08/23 [Rx Last Taken Unknown] Allergy/AdvReac Type Severity Reaction Status Date / Time No Known Allergies Allergy Verified 01/08/23 15:14 Family History Father Angina at rest Anxiety Diabetes Myocardial infarction Heart disease Hypertension Hyperlipidemia Respiratory disease Cancer esophageal Mother Cancer lung Depression Hormone disorder Seizures Osteoporosis Brother Myocardial infarction Hyperlipidemia Surgical History H/O foot surgery History of hemorrhoidectomy History of nasal surgery Hx of hand surgery Social History household members: significant other housing: house current occupational status: employed current occupation: [employer] sexually active: Yes Smoking Status: Current every day smoker tobacco type: cigarettes quit status: considering quitting alcohol intake: current alcohol intake frequency: holidays/special occasions only substance use type: marijuana what type of physical activity do you participate in: walking and additional details: lifting frequency: 5-6 times per week seatbelt use: always do you feel safe at home: Yes Vital Signs Vital Signs Vital Signs: 01/15/23 08:26 Temperature 96.9 F L Temperature Source Temporal Pulse Rate 64 Blood Pressure 164/93 H Blood Pressure Mean 116 Blood Pressure Source Monitor Weight Weight: 285 lb Body Mass Index (BMI) 40.3 Physical Exam Const alert, oriented x3, no apparent distress and well nourished Constitutional Narrative: The patient is obese. He is friendly and conversant. General Appearance: cooperative, comfortable, well kempt and well developed Orientation / Consciousness: awake, oriented to person, oriented to place and oriented to time Exam Limitations: no limitations HEENT normocephalic, head/scalp atraumatic and hearing grossly normal bilaterally Head and Scalp: normal to inspection, normocephalic and atraumatic External Ear: external ears normal Eyes PERRL and EOMs intact bilaterally General Eye: normal appearance of both eyes Neck full ROM Resp normal respiratory effort, normal air movement, no retractions and no use of accessory muscles Effort and Inspection: able to speak in complete sentences Extremity no calf tenderness General Extremity: Negative for clubbing or cyanosis Skin Wound Narrative: A clustered ulceration is noted overlying the left medial malleolus, with significant improvement. The ulceration has diminished in size since the patient was last seen and evaluated. It is now quite small. Dimensions are documented elsewhere. There is a small amount of bioburden and nonviable tissuepresent. There is no obvious sign of infection or cellulitis. Mild left lower extremity swelling and edema are noted. Hyperpigmentation and lipodermatosclerosis are noted in the gaiter areas bilaterally, more pronounced in the left lower extremity. A new ulceration has recently developed, located on the distal portion of the patient's left posterior calf. This more recent ulceration is relatively small in size, and dimensions are documented elsewhere. There is no sign of infection or cellulitis. There is a small amount of bioburden. Neuro oriented x3, CN's II-XII intact bilaterally, moves all extremities and no focal motor deficits Sensorium / Orientation: awake, alert, oriented to person, oriented to place andoriented to time Psych Appearance: grossly normal and appropriate Attitude: calm Activity / Motor Behavior: appropriate eye contact Speech: normal speech Mood & Affect: euthymic mood Thought Process: normal thought process Thought Content: normal thought content Attention / Concentration: attention grossly intact Debridement Note Debridement Note Wound debrided: Left medial malleolus, clustered venous ulceration; left posterior calf Laterality: Left Type of Debridement: Excisional debridement Anesthesia Used: 5% Lidocaine Gel Depth: Down to and including healthy tissue and in the subcutaneous layer Percentage of wound debrided: 100 Instrument Used: 5mm curette Severity: Fat Layer Exposed Amount of bleeding with debridement: Mild Bleeding Controlled with: Compression and gauze Patient tolerated procedure: Patient tolerated procedure well Post-Debridement Measurements and Additional Note: Post-Debridement Measurements/Treatment - Nurse 1 - General Ulcer Assessment Start: 12/20/22 08:15 Freq: Status: Active Protocol: VICKI Activity Type Activity Date Activity User E-sign Co-sign Detail Recorded Client Recorded Date Recorded By Document 12/20/22 08:15 DL [id number] 12/20/22 08:20 DL Document 12/25/22 08:32 AK [id number] 12/25/22 08:41 AK Document 12/27/22 12:55 DL [id number] 12/27/22 13:07 DL Document 01/01/23 08:15 DL Desktop 01/01/23 08:20 DL Document 01/08/23 08:22 ML [id number] 01/08/23 08:29 ML Document 01/15/23 08:26 AK [id number] 01/15/23 08:28 AK 12/20/22 12/25/22 12/27/22 08:15 08:32 12:55 - Today's Visit Information Type of service Nurse-only Follow-up Visit Nurse-only Visit (Physician/EXCHANGE CONSULTANT Visit ) Arrival Mode Ambulatory Ambulatory Ambulatory Transfer Assistance None Patient Identification Verified (Name & Yes Yes Yes ) Patient Requires Transmission-Based No No No Precautions Height and Weight Body Mass Index (BMI) 40.3 40.3 40.3 BMI Classification Obese Obese Obese Vital Signs Temperature (97.8 F-99.1 F) 96.5 F L 96.2 F L 97.5 F L Temperature Source Temporal Temporal Temporal Pulse Rate (60-100) 69 68 72 Pulse Location Monitor Monitor Monitor Respiratory Rate (12-18) 20 H 18 Respiratory rate source Observation Observation Blood Pressure (90/60-120/80) 156/92 H 150/101 H 154/93 H Blood Pressure Mean 113 117 113 Source Monitor Monitor Monitor Comment Removed 3M to shower last evening. History Since Last Visit- (Skip if this is Patient's initial visit) Have you changed medications since your No No No last visit? Any new allergies or adverse reactions No No No Had a fall/change in ADL's that may No No No increase risk of falls Signs or symptoms of abuse and/or No No No neglect since last visit Have you been in the hospital since your No No No last visit? Has dressing in place as prescribed Yes Yes No Has compression in place as prescribed Yes Yes No Has offloadiing in place as prescribed N/A N/A N/A Experienced any changes in pain level or No No Yes management Left Footwear Regular Shoe Right Footwear Regular Shoe Pain Scale: 0-10 Numeric Is Patient Pain Free? Yes Yes Yes 01/01/23 01/08/23 01/15/23 08:15 08:22 08:26 WC - Today's Visit Information Type of service Follow-up Visit Follow-up Visit Follow-up Visit (Physician/EXCHANGE CONSULTANT (Physician/EXCHANGE CONSULTANT (Physician/EXCHANGE CONSULTANT ) ) ) Arrival Mode Ambulatory Ambulatory Ambulatory Transfer Assistance None None Patient Identification Verified (Name & Yes Yes Yes ) Patient Requires Transmission-Based No No No Precautions Height and Weight Body Mass Index (BMI) 40.3 40.3 40.3 BMI Classification Obese Obese Obese Vital Signs Temperature (97.8 F-99.1 F) 97.3 F L 97.5 F L 96.9 F L Temperature Source Temporal Temporal Temporal Pulse Rate (60-100) 69 65 64 Pulse Location Monitor Monitor Monitor Respiratory Rate (12-18) 18 18 Respiratory rate source Observation Observation Blood Pressure (90/60-120/80) 163/96 H 174/106 H 164/93 H Blood Pressure Mean 118 128 116 Source Monitor Monitor Monitor Comment History Since Last Visit- (Skip if this is Patient's initial visit) Have you changed medications since your No No No last visit? Any new allergies or adverse reactions No No No Had a fall/change in ADL's that may No No No increase risk of falls Signs or symptoms of abuse and/or No No No neglect since last visit Have you been in the hospital since your No No No last visit? Has dressing in place as prescribed Yes Yes Yes Has compression in place as prescribed Yes Yes No Has offloadiing in place as prescribed N/A N/A N/A Experienced any changes in pain level or No No No management Left Footwear Regular Shoe Regular Shoe Right Footwear Regular Shoe Regular Shoe Pain Scale: 0-10 Numeric Is Patient Pain Free? Yes Yes No WC - Nurse 1 - General Ulcer Measurement Start: 12/20/22 08:15 Freq: Status: Active Protocol: Activity Type Activity Date Activity User E-sign Co-sign Detail Recorded Client Recorded Date Recorded By Document 12/20/22 08:15 DL [id number] 12/20/22 08:20 DL Document 12/25/22 08:32 AK [id number] 12/25/22 08:41 AK Document 12/27/22 12:55 DL [id number] 12/27/22 13:07 DL Document 01/01/23 08:15 DL Desktop 01/01/23 08:20 DL Document 01/08/23 08:22 ML [id number] 01/08/23 08:29 ML Document 01/15/23 08:26 AK [id number] 01/15/23 08:28 AK Document 01/15/23 08:28 AK [id number] 01/15/23 08:29 AK 12/20/22 12/25/22 12/27/22 08:15 08:32 12:55 Wound Center Nurse 1 #2 LLE post -Combined with other wound -Current Size (cm) - Length -Current Size (cm) - Width -Current Size (cm) - Depth -Total Square Cm -Photo Taken -Tunneling -Undermining/Tunneling -Circular Undermining -Change in Wound Grade/Stage -Exudate Amt -Exudate Type -Wound Margin -Granulation Amt -Granulation Quality -Slough/Fibrin -Necrosis Amt -Necrotic Tissue Type -Structure Exposed -Texture (Glen-wound Skin Appearance) -Moisture (Glen-wound Skin Appearance) -Color (Glen-wound Skin Appearance) -Temperature (Glen-wound Skin Appearance) -Tenderness on Palpation (Glen-wound Skin Appearance) -Ulcer Cleansing -Foul Odor after Cleansing -Anesthetic Used #1 left medial ankle -Combined with other wound No -Current Size (cm) - Length 0.1 -Current Size (cm) - Width 0.1 -Current Size (cm) - Depth 0.1 -Total Square Cm 0.01 -Date of Last Picture (Recall this field) -Photo Taken Yes -Tunneling No -Undermining/Tunneling No -Circular Undermining No -Change in Wound Grade/Stage -Exudate Amt None Present None Present -Wound Margin Distinct, Outline Attached -Granulation Amt None Present (0 %) -Granulation Quality N/A -Slough/Fibrin No -Necrosis Amt None Present (0 Medium (34-66%) %) -Necrotic Tissue Type Eschar -Structure Exposed N/A N/A N/A -Texture (Glen-wound Skin Appearance) Scarring No Abnormality, Scarring Assessed -Moisture (Glen-wound Skin Appearance) Dry/Scaly No Abnormality, No Abnormality Assessed -Color (Glen-wound Skin Appearance) Hemosiderin No Abnormality, Hemosiderin Staining Assessed Staining -Temperature (Glen-wound Skin No Abnormality No Abnormality No Abnormality Appearance) (Pt Warm) (Pt Warm) (Pt Warm) -Tenderness on Palpation (Glen-wound No No No Skin Appearance) -Ulcer Cleansing Soap and Water Soap and Water Not Cleansed -Foul Odor after Cleansing No No No -Anesthetic Used 5% Lidocaine Gel -Wound Comment(s) Pt removed Unna Boot to shower last evening. Instructed to not shower until a few hrs before appt. Lower Limb Edema Present No Left Calf (cm) 42.5 41 44 Left Ankle (cm) 26.5 27 27.6 01/01/23 01/08/23 01/15/23 08:15 08:22 08:26 Wound Center Nurse 1 #2 LLE post -Combined with other wound No -Current Size (cm) - Length 0.5 0.1 -Current Size (cm) - Width 0.5 0.1 -Current Size (cm) - Depth 0.2 0.1 -Total Square Cm 0.25 0.01 -Photo Taken Yes Yes -Tunneling No -Undermining/Tunneling No -Circular Undermining No -Change in Wound Grade/Stage No -Exudate Amt Small None Present -Exudate Type Serosanguineous -Wound Margin Distinct, Distinct, Outline Outline Attached Attached -Granulation Amt Large (67-100%) None Present (0 %) -Granulation Quality [place] -Slough/Fibrin Yes -Necrosis Amt None Present (0 Small (1-33%) %) -Necrotic Tissue Type Adherent Slough -Structure Exposed N/A N/A -Texture (Glen-wound Skin Appearance) Scarring No Abnormality, Assessed -Moisture (Glen-wound Skin Appearance) No Abnormality Assessed,Dry/ Scaly -Color (Glen-wound Skin Appearance) Erythema, No Abnormality, Hemosiderin Assessed Staining -Temperature (Glen-wound Skin No Abnormality No Abnormality Appearance) (Pt Warm) (Pt Warm) -Tenderness on Palpation (Glen-wound No Skin Appearance) -Ulcer Cleansing Soap and Water Rinsed/ Irrigated with Saline -Foul Odor after Cleansing No No -Anesthetic Used 5% Lidocaine 5% Lidocaine Gel Gel #1 left medial ankle -Combined with other wound -Current Size (cm) - Length 0.1 0.1 -Current Size (cm) - Width 0.1 0.1 -Current Size (cm) - Depth 0.1 0.1 -Total Square Cm 0.01 0.01 -Date of Last Picture (Recall this field) -Photo Taken Yes Yes -Tunneling -Undermining/Tunneling -Circular Undermining -Change in Wound Grade/Stage -Exudate Amt None Present None Present -Wound Margin Thickened Indistinct, Non -Visible -Granulation Amt Medium (34-66%) Large (67-100%) -Granulation Quality Pale [place] -Slough/Fibrin -Necrosis Amt Medium (34-66%) None Present (0 %) -Necrotic Tissue Type Eschar -Structure Exposed N/A N/A -Texture (Glen-wound Skin Appearance) Scarring Scarring -Moisture (Glen-wound Skin Appearance) Dry/Scaly No Abnormality -Color (Glen-wound Skin Appearance) Hemosiderin Hemosiderin Staining Staining -Temperature (Glen-wound Skin No Abnormality No Abnormality Appearance) (Pt Warm) (Pt Warm) -Tenderness on Palpation (Glen-wound No Skin Appearance) -Ulcer Cleansing Soap and Water Rinsed/ Irrigated with Saline -Foul Odor after Cleansing No -Anesthetic Used 5% Lidocaine Gel -Wound Comment(s) Lower Limb Edema Present Left Calf (cm) 42 43 Left Ankle (cm) 27.5 29.5 01/15/23 08:28 Wound Center Nurse 1 #2 LLE post -Combined with other wound -Current Size (cm) - Length -Current Size (cm) - Width -Current Size (cm) - Depth -Total Square Cm -Photo Taken -Tunneling -Undermining/Tunneling -Circular Undermining -Change in Wound Grade/Stage -Exudate Amt -Exudate Type -Wound Margin -Granulation Amt -Granulation Quality -Slough/Fibrin -Necrosis Amt -Necrotic Tissue Type -Structure Exposed -Texture (Glen-wound Skin Appearance) -Moisture (Glen-wound Skin Appearance) -Color (Glen-wound Skin Appearance) -Temperature (Glen-wound Skin Appearance) -Tenderness on Palpation (Glen-wound Skin Appearance) -Ulcer Cleansing -Foul Odor after Cleansing -Anesthetic Used #1 left medial ankle -Combined with other wound No -Current Size (cm) - Length 0.1 -Current Size (cm) - Width 0.1 -Current Size (cm) - Depth 0.1 -Total Square Cm 0.01 -Date of Last Picture (Recall this 01/15/23 field) -Photo Taken Yes -Tunneling No -Undermining/Tunneling No -Circular Undermining No -Change in Wound Grade/Stage No -Exudate Amt None Present -Wound Margin Distinct, Outline Attached -Granulation Amt None Present (0 %) -Granulation Quality N/A -Slough/Fibrin Yes -Necrosis Amt Small (1-33%) -Necrotic Tissue Type Adherent Slough -Structure Exposed N/A -Texture (Glen-wound Skin Appearance) No Abnormality, Assessed -Moisture (Glen-wound Skin Appearance) Assessed,Dry/ Scaly -Color (Glen-wound Skin Appearance) No Abnormality, Assessed -Temperature (Glen-wound Skin No Abnormality Appearance) (Pt Warm) -Tenderness on Palpation (Glen-wound No Skin Appearance) -Ulcer Cleansing Rinsed/ Irrigated with Saline -Foul Odor after Cleansing No -Anesthetic Used 5% Lidocaine Gel -Wound Comment(s) Lower Limb Edema Present Left Calf (cm) Left Ankle (cm) WC - Nurse 2 - General Ulcer CM Notes Start: 12/20/22 08:15 Freq: Status: Active Protocol: Activity Type Activity Date Activity User E-sign Co-sign Detail Recorded Client Recorded Date Recorded By Document 12/25/22 08:50 MW [id number] 12/25/22 08:56 MW Document 01/01/23 08:27 MW [id number] 01/01/23 08:31 MW Document 01/08/23 08:41 MW [id number] 01/08/23 08:46 MW Document 01/15/23 08:22 MW [id number] 01/15/23 08:28 MW 12/25/22 01/01/23 01/08/23 08:50 08:27 08:41 Wound Center Nurse 2 #2 LLE post -Time 08:41 -Correct Patient Yes -Correct Side, Site, Position Yes -Correct Procedure Yes -Procedure Performed Yes -Type of Procedure Debridement -Clinical Debridement Subcutaneous -Tissue Removed Subcutaneous -Post Debridement (cm) - Length 0.5 -Post Debridement (cm) - Width 0.4 -Post Debridement (cm) - Depth 0.1 -Total Square (Post) (cm) 0.20 -Area of Debridement (cm) - Length 0.5 -Area of Debridement (cm) - Width 0.4 -Total Square (Area) (cm) 0.20 -Tunneling No -Undermining/Tunneling No -Circular Undermining No -Wound/Ulcer Outcome Not Healed -Ulcer Cleansing Rinsed/ Irrigated with Saline -Foul Odor after Cleansing No -Bioengineered Tissue No -Bleeding Controlled with Pressure -Treatment Response Procedure Tolerated Well -Offloading No -Debridement - Subq, 1st 20sq cm Yes #1 left medial ankle -Time 08:50 08:28 08:41 -Correct Patient Yes Yes Yes -Correct Side, Site, Position Yes Yes Yes -Correct Procedure Yes Yes Yes -Procedure Performed No Yes Yes -Type of Procedure Debridement Debridement -Clinical Debridement Subcutaneous Subcutaneous -Tissue Removed Subcutaneous Subcutaneous -Post Debridement (cm) - Length 0.1 0.3 -Post Debridement (cm) - Width 0.1 0.3 -Post Debridement (cm) - Depth 0.1 0.1 -Total Square (Post) (cm) 0.01 0.09 -Area of Debridement (cm) - Length 0.1 0.3 -Area of Debridement (cm) - Width 0.1 0.3 -Total Square (Area) (cm) 0.01 0.09 -Tunneling No No No -Undermining/Tunneling No No No -Circular Undermining No No No -Wound/Ulcer Outcome Not Healed Not Healed Not Healed -Ulcer Cleansing Rinsed/ Rinsed/ Irrigated with Irrigated with Saline Saline -Foul Odor after Cleansing No No -Bioengineered Tissue No No -Bleeding Controlled with Pressure Pressure -Treatment Response Procedure Procedure Tolerated Well Tolerated Well -Offloading No No -Debridement - Subq, 1st 20sq cm Yes No Pain Scale: 0-10 Numeric Is Patient Pain Free? Yes Yes Yes 01/15/23 08:22 Wound Center Nurse 2 #2 LLE post -Time 08:24 -Correct Patient Yes -Correct Side, Site, Position Yes -Correct Procedure Yes -Procedure Performed Yes -Type of Procedure Debridement -Clinical Debridement Subcutaneous -Tissue Removed Subcutaneous -Post Debridement (cm) - Length 0.5 -Post Debridement (cm) - Width 0.3 -Post Debridement (cm) - Depth 0.1 -Total Square (Post) (cm) 0.15 -Area of Debridement (cm) - Length 0.5 -Area of Debridement (cm) - Width 0.3 -Total Square (Area) (cm) 0.15 -Tunneling No -Undermining/Tunneling No -Circular Undermining No -Wound/Ulcer Outcome Not Healed -Ulcer Cleansing Rinsed/ Irrigated with Saline -Foul Odor after Cleansing No -Bioengineered Tissue No -Bleeding Controlled with Pressure -Treatment Response Procedure Tolerated Well -Offloading No -Debridement - Subq, 1st 20sq cm Yes #1 left medial ankle -Time 08:26 -Correct Patient Yes -Correct Side, Site, Position Yes -Correct Procedure Yes -Procedure Performed Yes -Type of Procedure Debridement -Clinical Debridement Subcutaneous -Tissue Removed Subcutaneous -Post Debridement (cm) - Length 0.1 -Post Debridement (cm) - Width 0.1 -Post Debridement (cm) - Depth 0.1 -Total Square (Post) (cm) 0.01 -Area of Debridement (cm) - Length 0.1 -Area of Debridement (cm) - Width 0.1 -Total Square (Area) (cm) 0.01 -Tunneling No -Undermining/Tunneling No -Circular Undermining No -Wound/Ulcer Outcome Not Healed -Ulcer Cleansing Rinsed/ Irrigated with Saline -Foul Odor after Cleansing No -Bioengineered Tissue No -Bleeding Controlled with Pressure -Treatment Response Procedure Tolerated Well -Offloading No -Debridement - Subq, 1st 20sq cm No Pain Scale: 0-10 Numeric Is Patient Pain Free? Yes WC - Nurse 3 - General Ulcer D/C NN Start: 12/20/22 08:15 Freq: Status: Active Protocol: Activity Type Activity Date Activity User E-sign Co-sign Detail Recorded Client Recorded Date Recorded By Document 12/20/22 08:15 DL [id number] 12/20/22 08:20 DL Document 12/25/22 09:14 DL [id number] 12/25/22 09:18 DL Document 12/27/22 12:55 DL [id number] 12/27/22 13:07 DL Document 01/01/23 08:37 ML [id number] 01/01/23 08:38 ML Document 01/08/23 09:02 DL [id number] 01/08/23 09:03 DL Document 01/15/23 08:37 AK [id number] 01/15/23 08:38 AK 12/20/22 12/25/22 12/27/22 08:15 09:14 12:55 Vital Signs Temperature (97.8 F-99.1 F) 96.5 F L 97.5 F L Temperature Source Temporal Temporal Pulse Rate (60-100) 69 72 Pulse Location Monitor Monitor Respiratory Rate (12-18) 20 H 18 Respiratory rate source Observation Observation Blood Pressure (90/60-120/80) 156/92 H 154/93 H Blood Pressure Mean 113 113 Source Monitor Monitor Comment Removed 3M to shower last evening. Pain Scale: 0-10 Numeric Is Patient Pain Free? Yes Yes Yes Wound Care Center Nurse 3 #2 LLE post -Ulcer Cleansing -Foul Odor after Cleansing -Negative Pressure Wound Therapy -Primary Dressing Applied -Other Dressing -Primary Dressing Covered/Secured with #1 left medial ankle -Ulcer Cleansing Soap and Water Rinsed/ Rinsed/ Irrigated with Irrigated with Saline Saline -Foul Odor after Cleansing No No No -Negative Pressure Wound Therapy -Primary Dressing Applied -Other Dressing Unna Boot unna Unna -Primary Dressing Covered/Secured with Right -Lotion applied to leg before No compression wrap -Stockings -Other Left -Multi-Layered Wrap Application Unna Boot - Unna Boot - Unna Boot - Left ($) Left ($) Left ($) -Stockings Treatment Response Procedure Procedure Procedure Tolerated Well Tolerated Well Tolerated Well WC - Visit Discharge Discharge Condition Stable Stable Stable Ambulatory Status Ambulatory Ambulatory Ambulatory Transportation Private Auto Private Auto Private Auto Medication Reconcilliation completed & provided to patient/care provider Clinical Summary of Care Provided Notes: Dressing applied per Genia Drake RN today in clinic . 01/01/23 01/08/23 01/15/23 08:37 09:02 08:37 Vital Signs Temperature (97.8 F-99.1 F) Temperature Source Pulse Rate (60-100) Pulse Location Respiratory Rate (12-18) Respiratory rate source Blood Pressure (90/60-120/80) Blood Pressure Mean Source Comment Pain Scale: 0-10 Numeric Is Patient Pain Free? Yes Yes Yes Wound Care Center Nurse 3 #2 LLE post -Ulcer Cleansing Rinsed/ Rinsed/ Irrigated with Irrigated with Saline Saline -Foul Odor after Cleansing No No -Negative Pressure Wound Therapy N/A -Primary Dressing Applied C Hydrogel ($) -Other Dressing hydrogel -Primary Dressing Covered/Secured with Dry Gauze, Dry Gauze & Secured with Roll Gauze, Tape Secured with Tape #1 left medial ankle -Ulcer Cleansing Rinsed/ Rinsed/ Rinsed/ Irrigated with Irrigated with Irrigated with Saline Saline Saline -Foul Odor after Cleansing No No No -Negative Pressure Wound Therapy N/A -Primary Dressing Applied C Hydrogel ($) -Other Dressing hydrogel hydrogel -Primary Dressing Covered/Secured with Dry Gauze, Dry Gauze, Dry Gauze & Secured with Secured with Roll Gauze, Tape Tape Secured with Tape Right -Lotion applied to leg before compression wrap -Stockings Yes -Other own Left -Multi-Layered Wrap Application -Stockings Yes Treatment Response Procedure Tolerated Well WC - Visit Discharge Discharge Condition Stable Stable Ambulatory Status Ambulatory Ambulatory Transportation Private Auto Private Auto Medication Reconcilliation completed & Yes provided to patient/care provider Clinical Summary of Care Provided Yes Notes: Assessment/Plan Assessment/Plan (1) Venous stasis ulcer of ankle with fat layer exposed: CODE(S): I83.003 - Varicose veins of unspecified lower extremity with ulcer of ankle; L97.302 - 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 (2) Chronic venous hypertension w/ulcer and inflammation involv left side: CODE(S): I87.332 - Chronic venous hypertension (idiopathic) with ulcer andinflammation of left lower extremity; L97.929 - Non-pressure chronic ulcer of unspecified part of left lower leg with unspecified severity (3) Chronic venous insufficiency: CODE(S): I87.2 - Venous insufficiency (chronic) (peripheral) (4) Lipodermatosclerosis: CODE(S): I83.10 - Varicose veins of unspecified lower extremity with inflammation (5) Left leg swelling: CODE(S): M79.89 - Other specified soft tissue disorders (6) Leg edema, left: CODE(S): R60.0 - Localized edema (7) Hypertension: CODE(S): I10 - Essential (primary) hypertension (8) Tobacco abuse disorder: CODE(S): Z72.0 - Tobacco use (9) Tobacco abuse counseling: CODE(S): Z71.6 - Tobacco abuse counseling (10) History of seizures: CODE(S): Z87.898 - Personal history of other specified conditions (11) History of hemorrhoidectomy: CODE(S): Z98.890 - Other specified postprocedural states (12) History of hand surgery: CODE(S): Z98.890 - Other specified postprocedural states PLAN: Plan This is a 62-year-old obese male who presented with an ulceration overlying the left medial malleolus. This appears to be related to chronic venous hypertension with inflammation and chronic venous insufficiency. The patient also experiences swelling and edema in his lower extremities, more pronounced atthe end of the day. A lengthy discussion has been undertaken as to the appropriate means of management relative to the patient's chronic venous disease. Leg elevation has been recommended. The patient has been encouraged to sleep on a flat surface at night. His legs are to be at heart level, or higher, both while sleeping and during daytime hours. Prolonged idle sitting with his legs in a dependent position has been discouraged. Activity has been encouraged, with recruitment of the calf and foot muscle pumps. Weight loss hasalso been recommended. 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 He works8-hour shifts, and 13 days out of every 2 weeks. Upon the patient's return to work, increased swelling and edema in his lower extremities was noted, as well as a new ulceration on the left posterior calf. As result, we have extended hishiatus from work for another several weeks. This will enable the patient to be at home, with legs elevated, a measure felt to be necessary to achieve wound healing. We are to continue compression to the left lower extremity by means ofgraduated compression stockings of 20 to 30 mmHg compression, knee-high length, which the patient has recently obtained. Collagen hydrogel is to be applied topically to each of the 2 ulceration sites, on the left medial malleolus and the left posterior calf. The collagen hydrogel will be applied on a daily basis. The patient was also recently diagnosed with superficial thrombophlebitis in the right lower extremity, for which he is also wearing graduated compression stockings of 20 to 30 mmHg compression. Recent laboratoryresults from December 13, 2022, have been reviewed, with results as follows: Glucose 97, BUN 20, creatinine 1.23, total protein 7.6, albumin 3.6, calcium 8.9, AST 20, alkaline phosphatase 97, ALT 40, total bilirubin 0.40, cholesterol 175, triglycerides 184, sodium 140, potassium 4.4, chloride 103, HDL 42, LDL 96,VLDL 37. A venous duplex examination recently performed revealed superficial thrombophlebitis involving the right great saphenous vein and an accessory branch. 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 Once again, the patient has been encouraged to elevate his lower extremities, remain active, avoid prolonged idle standing and sitting, and to lose weight. There has been improvement in the patient's swelling and edema while at home, but the patient suffered a setback with only 1 week back on the job. The patient is to wear his graduated compression stockings of 20 to 30 mmHg compression bilaterally, as acute superficial thrombophlebitis has been recently diagnosed in the right lower extremity, and ulcerations related to his venous disease are present on the left side. Nutritional optimization has been recommended. The patient has been advised to cease his smoking habit. Given the manifestations related to the patient's chronic venous disease, and findingson his recent venous duplex examination, it is felt that the patient is a candidate for endovenous laser ablation of the left great saphenous vein, a matter which has been discussed with the patient and his significant other at the bedside several times. The indications and risks have been explained. Expectations have been described. The patient's questions have been answered. The patient is to return in 2 weeks for reassessment. As mentioned, compressionis to be administered bilaterally with graduated compression stockings of 20 to 30 mmHg compression, knee-high length, worn on a daily basis. The patient has indicated his desire to proceed with definitive management of the venous diseasein his left lower extremity, and preauthorization will be sought for endovenous laser ablation of the left great saphenous vein. Total time: 29 minutes 01/15/23 [id number] <Electronically signed by Edgar Brooks MD> Cosigner Signature (if applicable): CC: ~ Signed [facility] Work Phone: [phone]) 533-334802-21-2023 History and physical note Author Dr. Brooks [facility] January 08, 2023 12:29pm Note Date/Time January 08, 2023 12:29pm [facility] [address] [place] [id number] H&P Exam - Wound Care 01/08/23 1219 MR#: [id number] Acct: [id number] Name: SUKI ADORNO Rep #:[id number] : 1960 62 From: Edgar Yoder PCP: Dr. Kelsey Jacobs MD Status:REG [facility] Location: History of Present Illness Date of Service: 01/08/23 Chief Complaint: Venous stasis ulceration, chronic venous hypertension with inflammation and ulceration, leg swelling, leg edema?left lower extremity History of Wound: This is a 62-year-old obese male who presented with an ulceration overlying the left medial malleolus. According to the patient and his significant-other female friend, the ulceration had been present for more than 2 years. The patient feels as though it is due to a foreign body which became stuck between his boot and skin causing a pressure ulceration. However, from a clinical standpoint, it is much more likely that this is related to chronic venous hypertension and associated venous disease. The patient relates swelling and edema in his lower extremities, which is worse at the end of each day. 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 He also sleeps in a recliner, although he insists that his lower extremities are at heart level, or higher. He is not very active during his time at home, often sitting for prolonged periods. The patient is a smoker,smoking 1 pack of cigarettes per day for many years. Appropriate counseling hasbeen undertaken as to the adverse effects of tobacco use. With respect to his ulceration, he was initially placed on oral Augmentin in the Emergency Department for cellulitis, and completed a course of doxycycline more recently, as prescribed by his primary care physician. The patient denies a history of deep vein thrombosis. The patient suffers from hypertension and obesity. His BMI is 40.3. The patient's history is negative for myocardial infarction, cerebrovascular accident, diabetes mellitus, pulmonary disease, renal disease, thyroid disease, and hyperlipidemia. [facility] Medical History Chronic venous hypertension w/ulcer and inflammation involv left side Chronic venous insufficiency DVT (deep venous thrombosis) Hx of hypoglycemia Hx of migraines Hx of seasonal allergies Hypertension Lipodermatosclerosis Seizures Venous stasis ulcer of ankle with fat layer exposed Wears glasses Home Medications amlodipine 5 mg tablet 5 mg PO DAILY #30 tabs 11/19/22 [Rx Last Taken Unknown] blood pressure monitor #1 ea 12/12/22 [Rx Last Taken Unknown] furosemide 20 mg tablet 20 mg PO DAILY #30 tabs 12/12/22 [Rx Last Taken Unknown] hydroxyzine HCl 25 mg tablet 25 mg PO QHS #5 tabs 12/12/22 [Rx Last Taken Unknown] ibuprofen 800 mg tablet 800 mg PO BID PRN 12/12/22 [History Last Taken Unknown] lisinopril 20 mg tablet 20 mg PO DAILY #30 tabs 12/12/22 [Rx Last Taken Unknown] nicotine (polacrilex) 4 mg buccal lozenge 4 mg buccal Q4H PRN nicotine cravings #108 ea 12/12/22 [Rx Last Taken Unknown] nicotine 21 mg/24 hr daily transdermal patch (Nicoderm CQ) 1 patch transdermal DAILY #28 ea 12/12/22 [Rx Last Taken Unknown] escitalopram oxalate 10 mg tablet (Lexapro) 30 mg PO DAILY 12/13/22 [History Last Taken Unknown] Allergy/AdvReac Type Severity Reaction Status Date / Time No Known Allergies Allergy Verified 12/12/22 08:56 Family History Father Angina at rest Anxiety Diabetes Myocardial infarction Heart disease Hypertension Hyperlipidemia Respiratory disease Cancer esophageal Mother Cancer lung Depression Hormone disorder Seizures Osteoporosis Brother Myocardial infarction Hyperlipidemia Surgical History H/O foot surgery History of hemorrhoidectomy History of nasal surgery Hx of hand surgery Social History household members: significant other housing: house current occupational status: employed current occupation: [employer] sexually active: Yes Smoking Status: Current every day smoker tobacco type: cigarettes quit status: considering quitting alcohol intake: current alcohol intake frequency: holidays/special occasions only substance use type: marijuana what type of physical activity do you participate in: walking and additional details: lifting frequency: 5-6 times per week seatbelt use: always do you feel safe at home: Yes Vital Signs Vital Signs Vital Signs: 01/08/23 08:22 Temperature 97.5 F L Temperature Source Temporal Pulse Rate 65 Respiratory Rate 18 Blood Pressure 174/106 H Blood Pressure Mean 128 Blood Pressure Source Monitor Weight Weight: 285 lb Body Mass Index (BMI) 40.3 Physical Exam Const alert, oriented x3, no apparent distress and well nourished Constitutional Narrative: The patient is obese. He is friendly and conversant. General Appearance: cooperative, comfortable, well kempt and well developed Orientation / Consciousness: awake, oriented to person, oriented to place and oriented to time Exam Limitations: no limitations HEENT normocephalic, head/scalp atraumatic and hearing grossly normal bilaterally Head and Scalp: normal to inspection, normocephalic and atraumatic External Ear: external ears normal Eyes PERRL and EOMs intact bilaterally General Eye: normal appearance of both eyes Neck full ROM Resp normal respiratory effort, normal air movement, no retractions and no use of accessory muscles Effort and Inspection: able to speak in complete sentences Extremity no calf tenderness General Extremity: Negative for clubbing or cyanosis Skin Wound Narrative: A clustered ulceration is noted overlying the left medial malleolus, with significant improvement. The ulceration has diminished in size since the patient was last seen and evaluated. Dimensions are documented elsewhere. There is a small amount of bioburden and nonviable tissue present. There is no obvious sign of infection or cellulitis. Swelling and edema has worsened since the patient's last appointment. Hyperpigmentation and lipodermatosclerosis are noted in the gaiter areas bilaterally, more pronounced in the left lower extremity. A new ulceration has developed since the patient's last visit, located on the distal portion of the patient's left posterior calf. Dimensions are documented elsewhere. There is no sign of infection or cellulitis. Neuro oriented x3, CN's II-XII intact bilaterally, moves all extremities and no focal motor deficits Sensorium / Orientation: awake, alert, oriented to person, oriented to place andoriented to time Psych Appearance: grossly normal and appropriate Attitude: calm Activity / Motor Behavior: appropriate eye contact Speech: normal speech Mood & Affect: euthymic mood Thought Process: normal thought process Thought Content: normal thought content Attention / Concentration: attention grossly intact Debridement Note Debridement Note Wound debrided: Left medial malleolus, clustered venous ulceration; left posterior calf Laterality: Left Type of Debridement: Excisional debridement Anesthesia Used: 5% Lidocaine Gel Depth: Down to and including healthy tissue and in the subcutaneous layer Percentage of wound debrided: 100 Instrument Used: 5mm curette Severity: Fat Layer Exposed Amount of bleeding with debridement: Mild Bleeding Controlled with: Compression and gauze Patient tolerated procedure: Patient tolerated procedure well Post-Debridement Measurements and Additional Note: Post-Debridement Measurements/Treatment - Nurse 1 - General Ulcer Assessment Start: 12/20/22 08:15 Freq: Status: Active Protocol: MOSES.EMILY Activity Type Activity Date Activity User E-sign Co-sign Detail Recorded Client Recorded Date Recorded By Document 12/20/22 08:15 DL [id number] 12/20/22 08:20 DL Document 12/25/22 08:32 AK [id number] 12/25/22 08:41 AK Document 12/27/22 12:55 DL [id number] 12/27/22 13:07 DL Document 02/14/23 08:15 DL Desktop 01/01/23 08:20 DL Document 01/08/23 08:22 ML [id number] 01/08/23 08:29 ML 12/20/22 12/25/22 12/27/22 08:15 08:32 12:55 WC - Today's Visit Information Type of service Nurse-only Follow-up Visit Nurse-only Visit (Physician/EXCHANGE CONSULTANT Visit ) Arrival Mode Ambulatory Ambulatory Ambulatory Transfer Assistance None Patient Identification Verified (Name & Yes Yes Yes ) Patient Requires Transmission-Based No No No Precautions Height and Weight Body Mass Index (BMI) 40.3 40.3 40.3 BMI Classification Obese Obese Obese Vital Signs Temperature (97.8 F-99.1 F) 96.5 F L 96.2 F L 97.5 F L Temperature Source Temporal Temporal Temporal Pulse Rate (60-100) 69 68 72 Pulse Location Monitor Monitor Monitor Respiratory Rate (12-18) 20 H 18 Respiratory rate source Observation Observation Blood Pressure (90/60-120/80) 156/92 H 150/101 H 154/93 H Blood Pressure Mean 113 117 113 Source Monitor Monitor Monitor Comment Removed 3M to shower last evening. History Since Last Visit- (Skip if this is Patient's initial visit) Have you changed medications since your No No No last visit? Any new allergies or adverse reactions No No No Had a fall/change in ADL's that may No No No increase risk of falls Signs or symptoms of abuse and/or No No No neglect since last visit Have you been in the hospital since your No No No last visit? Has dressing in place as prescribed Yes Yes No Has compression in place as prescribed Yes Yes No Has offloadiing in place as prescribed N/A N/A N/A Experienced any changes in pain level or No No Yes management Left Footwear Regular Shoe Right Footwear Regular Shoe Pain Scale: 0-10 Numeric Is Patient Pain Free? Yes Yes Yes 01/01/23 01/08/23 08:15 08:22 WC - Today's Visit Information Type of service Follow-up Visit Follow-up Visit (Physician/EXCHANGE CONSULTANT (Physician/EXCHANGE CONSULTANT ) ) Arrival Mode Ambulatory Ambulatory Transfer Assistance None None Patient Identification Verified (Name & Yes Yes ) Patient Requires Transmission-Based No No Precautions Height and Weight Body Mass Index (BMI) 40.3 40.3 BMI Classification Obese Obese Vital Signs Temperature (97.8 F-99.1 F) 97.3 F L 97.5 F L Temperature Source Temporal Temporal Pulse Rate (60-100) 69 65 Pulse Location Monitor Monitor Respiratory Rate (12-18) 18 18 Respiratory rate source Observation Observation Blood Pressure (90/60-120/80) 163/96 H 174/106 H Blood Pressure Mean 118 128 Source Monitor Monitor Comment History Since Last Visit- (Skip if this is Patient's initial visit) Have you changed medications since your No No last visit? Any new allergies or adverse reactions No No Had a fall/change in ADL's that may No No increase risk of falls Signs or symptoms of abuse and/or No No neglect since last visit Have you been in the hospital since your No No last visit? Has dressing in place as prescribed Yes Yes Has compression in place as prescribed Yes Yes Has offloadiing in place as prescribed N/A N/A Experienced any changes in pain level or No No management Left Footwear Regular Shoe Right Footwear Regular Shoe Pain Scale: 0-10 Numeric Is Patient Pain Free? Yes Yes WC - Nurse 1 - General Ulcer Measurement Start: 12/20/22 08:15 Freq: Status: Active Protocol: Activity Type Activity Date Activity User E-sign Co-sign Detail Recorded Client Recorded Date Recorded By Document 12/20/22 08:15 DL [id number] 12/20/22 08:20 DL Document 12/25/22 08:32 AK [id number] 12/25/22 08:41 AK Document 12/27/22 12:55 DL [id number] 12/27/22 13:07 DL Document 01/01/23 08:15 DL Desktop 01/01/23 08:20 DL Document 01/08/23 08:22 ML [id number] 01/08/23 08:29 ML 12/20/22 12/25/22 12/27/22 08:15 08:32 12:55 Wound Center Nurse 1 #2 LLE post -Current Size (cm) - Length -Current Size (cm) - Width -Current Size (cm) - Depth -Total Square Cm -Photo Taken -Exudate Amt -Exudate Type -Wound Margin -Granulation Amt -Granulation Quality -Necrosis Amt -Structure Exposed -Texture (Glen-wound Skin Appearance) -Moisture (Glen-wound Skin Appearance) -Color (Glen-wound Skin Appearance) -Temperature (Glen-wound Skin Appearance) -Ulcer Cleansing -Foul Odor after Cleansing -Anesthetic Used #1 left medial ankle -Combined with other wound No -Current Size (cm) - Length 0.1 -Current Size (cm) - Width 0.1 -Current Size (cm) - Depth 0.1 -Total Square Cm 0.01 -Photo Taken Yes -Tunneling No -Undermining/Tunneling No -Circular Undermining No -Exudate Amt None Present None Present -Wound Margin Distinct, Outline Attached -Granulation Amt None Present (0 %) -Granulation Quality N/A -Slough/Fibrin No -Necrosis Amt None Present (0 Medium (34-66%) %) -Necrotic Tissue Type Eschar -Structure Exposed N/A N/A N/A -Texture (Glen-wound Skin Appearance) Scarring No Abnormality, Scarring Assessed -Moisture (Glen-wound Skin Appearance) Dry/Scaly No Abnormality, No Abnormality Assessed -Color (Glen-wound Skin Appearance) Hemosiderin No Abnormality, Hemosiderin Staining Assessed Staining -Temperature (Glen-wound Skin No Abnormality No Abnormality No Abnormality Appearance) (Pt Warm) (Pt Warm) (Pt Warm) -Tenderness on Palpation (Glen-wound No No No Skin Appearance) -Ulcer Cleansing Soap and Water Soap and Water Not Cleansed -Foul Odor after Cleansing No No No -Anesthetic Used 5% Lidocaine Gel -Wound Comment(s) Pt removed Unna Boot to shower last evening. Instructed to not shower until a few hrs before appt. Lower Limb Edema Present No Left Calf (cm) 42.5 41 44 Left Ankle (cm) 26.5 27 27.6 01/01/23 01/08/23 08:15 08:22 Wound Center Nurse 1 #2 LLE post -Current Size (cm) - Length 0.5 -Current Size (cm) - Width 0.5 -Current Size (cm) - Depth 0.2 -Total Square Cm 0.25 -Photo Taken Yes -Exudate Amt Small -Exudate Type Serosanguineous -Wound Margin Distinct, Outline Attached -Granulation Amt Large (67-100%) -Granulation Quality [place] -Necrosis Amt None Present (0 %) -Structure Exposed N/A -Texture (Glen-wound Skin Appearance) Scarring -Moisture (Glen-wound Skin Appearance) No Abnormality -Color (Glen-wound Skin Appearance) Erythema, Hemosiderin Staining -Temperature (Glen-wound Skin No Abnormality Appearance) (Pt Warm) -Ulcer Cleansing Soap and Water -Foul Odor after Cleansing No -Anesthetic Used 5% Lidocaine Gel #1 left medial ankle -Combined with other wound -Current Size (cm) - Length 0.1 0.1 -Current Size (cm) - Width 0.1 0.1 -Current Size (cm) - Depth 0.1 0.1 -Total Square Cm 0.01 0.01 -Photo Taken Yes Yes -Tunneling -Undermining/Tunneling -Circular Undermining -Exudate Amt None Present None Present -Wound Margin Thickened Indistinct, Non -Visible -Granulation Amt Medium (34-66%) Large (67-100%) -Granulation Quality Pale [place] -Slough/Fibrin -Necrosis Amt Medium (34-66%) None Present (0 %) -Necrotic Tissue Type Eschar -Structure Exposed N/A N/A -Texture (Glen-wound Skin Appearance) Scarring Scarring -Moisture (Glen-wound Skin Appearance) Dry/Scaly No Abnormality -Color (Glen-wound Skin Appearance) Hemosiderin Hemosiderin Staining Staining -Temperature (Glen-wound Skin No Abnormality No Abnormality Appearance) (Pt Warm) (Pt Warm) -Tenderness on Palpation (Glen-wound No Skin Appearance) -Ulcer Cleansing Soap and Water Rinsed/ Irrigated with Saline -Foul Odor after Cleansing No -Anesthetic Used 5% Lidocaine Gel -Wound Comment(s) Lower Limb Edema Present Left Calf (cm) 42 43 Left Ankle (cm) 27.5 29.5 WC - Nurse 2 - General Ulcer CM Notes Start: 12/20/22 08:15 Freq: Status: Active Protocol: Activity Type Activity Date Activity User E-sign Co-sign Detail Recorded Client Recorded Date Recorded By Document 12/25/22 08:50 MW [id number] 12/25/22 08:56 MW Document 01/01/23 08:27 MW [id number] 01/01/23 08:31 MW Document 01/08/23 08:41 MW [id number] 01/08/23 08:46 MW 12/25/22 01/01/23 01/08/23 08:50 08:27 08:41 Wound Center Nurse 2 #2 LLE post -Time 08:41 -Correct Patient Yes -Correct Side, Site, Position Yes -Correct Procedure Yes -Procedure Performed Yes -Type of Procedure Debridement -Clinical Debridement Subcutaneous -Tissue Removed Subcutaneous -Post Debridement (cm) - Length 0.5 -Post Debridement (cm) - Width 0.4 -Post Debridement (cm) - Depth 0.1 -Total Square (Post) (cm) 0.20 -Area of Debridement (cm) - Length 0.5 -Area of Debridement (cm) - Width 0.4 -Total Square (Area) (cm) 0.20 -Tunneling No -Undermining/Tunneling No -Circular Undermining No -Wound/Ulcer Outcome Not Healed -Ulcer Cleansing Rinsed/ Irrigated with Saline -Foul Odor after Cleansing No -Bioengineered Tissue No -Bleeding Controlled with Pressure -Treatment Response Procedure Tolerated Well -Offloading No -Debridement - Subq, 1st 20sq cm Yes #1 left medial ankle -Time 08:50 08:28 08:41 -Correct Patient Yes Yes Yes -Correct Side, Site, Position Yes Yes Yes -Correct Procedure Yes Yes Yes -Procedure Performed No Yes Yes -Type of Procedure Debridement Debridement -Clinical Debridement Subcutaneous Subcutaneous -Tissue Removed Subcutaneous Subcutaneous -Post Debridement (cm) - Length 0.1 0.3 -Post Debridement (cm) - Width 0.1 0.3 -Post Debridement (cm) - Depth 0.1 0.1 -Total Square (Post) (cm) 0.01 0.09 -Area of Debridement (cm) - Length 0.1 0.3 -Area of Debridement (cm) - Width 0.1 0.3 -Total Square (Area) (cm) 0.01 0.09 -Tunneling No No No -Undermining/Tunneling No No No -Circular Undermining No No No -Wound/Ulcer Outcome Not Healed Not Healed Not Healed -Ulcer Cleansing Rinsed/ Rinsed/ Irrigated with Irrigated with Saline Saline -Foul Odor after Cleansing No No -Bioengineered Tissue No No -Bleeding Controlled with Pressure Pressure -Treatment Response Procedure Procedure Tolerated Well Tolerated Well -Offloading No No -Debridement - Subq, 1st 20sq cm Yes No Pain Scale: 0-10 Numeric Is Patient Pain Free? Yes Yes Yes WC - Nurse 3 - General Ulcer D/C NN Start: 12/20/22 08:15 Freq: Status: Active Protocol: Activity Type Activity Date Activity User E-sign Co-sign Detail Recorded Client Recorded Date Recorded By Document 12/20/22 08:15 DL [id number] 12/20/22 08:20 DL Document 12/25/22 09:14 DL [id number] 12/25/22 09:18 DL Document 12/27/22 12:55 DL [id number] 12/27/22 13:07 DL Document 01/01/23 08:37 ML [id number] 01/01/23 08:38 ML Document 01/08/23 09:02 DL [id number] 01/08/23 09:03 DL 12/20/22 12/25/22 12/27/22 08:15 09:14 12:55 Vital Signs Temperature (97.8 F-99.1 F) 96.5 F L 97.5 F L Temperature Source Temporal Temporal Pulse Rate (60-100) 69 72 Pulse Location Monitor Monitor Respiratory Rate (12-18) 20 H 18 Respiratory rate source Observation Observation Blood Pressure (90/60-120/80) 156/92 H 154/93 H Blood Pressure Mean 113 113 Source Monitor Monitor Comment Removed 3M to shower last evening. Pain Scale: 0-10 Numeric Is Patient Pain Free? Yes Yes Yes Wound Care Center Nurse 3 #2 LLE post -Ulcer Cleansing -Foul Odor after Cleansing -Primary Dressing Applied -Primary Dressing Covered/Secured with #1 left medial ankle -Ulcer Cleansing Soap and Water Rinsed/ Rinsed/ Irrigated with Irrigated with Saline Saline -Foul Odor after Cleansing No No No -Primary Dressing Applied -Other Dressing Unna Boot unna Unna -Primary Dressing Covered/Secured with Right -Lotion applied to leg before No compression wrap -Stockings Left -Multi-Layered Wrap Application Unna Boot - Unna Boot - Unna Boot - Left ($) Left ($) Left ($) -Stockings Treatment Response Procedure Procedure Procedure Tolerated Well Tolerated Well Tolerated Well WC - Visit Discharge Discharge Condition Stable Stable Stable Ambulatory Status Ambulatory Ambulatory Ambulatory Transportation Private Auto Private Auto Private Auto Notes: Dressing applied per Genia Drake RN today in clinic . 01/01/23 01/08/23 08:37 09:02 Vital Signs Temperature (97.8 F-99.1 F) Temperature Source Pulse Rate (60-100) Pulse Location Respiratory Rate (12-18) Respiratory rate source Blood Pressure (90/60-120/80) Blood Pressure Mean Source Comment Pain Scale: 0-10 Numeric Is Patient Pain Free? Yes Yes Wound Care Center Nurse 3 #2 LLE post -Ulcer Cleansing Rinsed/ Irrigated with Saline -Foul Odor after Cleansing No -Primary Dressing Applied C Hydrogel ($) -Primary Dressing Covered/Secured with Dry Gauze, Secured with Tape #1 left medial ankle -Ulcer Cleansing Rinsed/ Rinsed/ Irrigated with Irrigated with Saline Saline -Foul Odor after Cleansing No No -Primary Dressing Applied C Hydrogel ($) -Other Dressing hydrogel -Primary Dressing Covered/Secured with Dry Gauze, Dry Gauze, Secured with Secured with Tape Tape Right -Lotion applied to leg before compression wrap -Stockings Yes Left -Multi-Layered Wrap Application -Stockings Yes Treatment Response Procedure Tolerated Well WC - Visit Discharge Discharge Condition Stable Ambulatory Status Ambulatory Transportation Private Auto Notes: Assessment/Plan Assessment/Plan (1) Venous stasis ulcer of ankle with fat layer exposed: CODE(S): I83.003 - Varicose veins of unspecified lower extremity with ulcer of ankle; L97.302 - 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 (2) Chronic venous hypertension w/ulcer and inflammation involv left side: CODE(S): I87.332 - Chronic venous hypertension (idiopathic) with ulcer andinflammation of left lower extremity; L97.929 - Non-pressure chronic ulcer of unspecified part of left lower leg with unspecified severity (3) Chronic venous insufficiency: CODE(S): I87.2 - Venous insufficiency (chronic) (peripheral) (4) Lipodermatosclerosis: CODE(S): I83.10 - Varicose veins of unspecified lower extremity with inflammation (5) Left leg swelling: CODE(S): M79.89 - Other specified soft tissue disorders (6) Leg edema, left: CODE(S): R60.0 - Localized edema (7) Hypertension: CODE(S): I10 - Essential (primary) hypertension (8) Tobacco abuse disorder: CODE(S): Z72.0 - Tobacco use (9) Tobacco abuse counseling: CODE(S): Z71.6 - Tobacco abuse counseling (10) History of seizures: CODE(S): Z87.898 - Personal history of other specified conditions (11) History of hemorrhoidectomy: CODE(S): Z98.890 - Other specified postprocedural states (12) History of hand surgery: CODE(S): Z98.890 - Other specified postprocedural states PLAN: Plan This is a 62-year-old obese male who presented with an ulceration overlying the left medial malleolus. This appears to be related to chronic venous hypertension with inflammation and chronic venous insufficiency. The patient also experiences swelling and edema in his lower extremities, more pronounced atthe end of the day. A lengthy discussion has been undertaken as to the appropriate means of management relative to the patient's chronic venous disease. Leg elevation has been recommended. The patient has been encouraged to sleep on a flat surface at night. His legs are to be at heart level, or higher, both while sleeping and during daytime hours. Prolonged idle sitting with his legs in a dependent position has been discouraged. Activity has been encouraged, with recruitment of the calf and foot muscle pumps. Weight loss hasalso been recommended. 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 He works8-hour shifts, and 13 days out of every 2 weeks. His left lower extremity is now noted to be markedly swollen and edematous. There has been an increase in the swelling since previously evaluated. In addition, a new ulceration is now present on the distal aspect of his left posterior calf, thought to be due to the enhanced swelling and edema in his limb. As result, we are to extend his hiatus from work, for another several weeks. This will enable the patient to beat home, with legs elevated, a measure felt to be necessary to achieve wound healing. We are to continue compression to the left lower extremity by means ofgraduated compression stockings of 20 to 30 mmHg compression, knee-high length, which the patient has recently obtained. Collagen hydrogel is to be applied topically to each of the 2 ulceration sites, on the left medial malleolus and the left posterior calf. The collagen hydrogel will be applied on a daily basis. The patient is to return in 1 week for reassessment. Recent laboratory results from December 13, 2022, have been reviewed, with results as follows: Glucose 97, BUN 20, creatinine 1.23, total protein 7.6, albumin 3.6, calcium 8.9, AST 20, alkaline phosphatase 97, ALT 40, total bilirubin 0.40, cholesterol 175, triglycerides 184, sodium 140, potassium 4.4, chloride 103, HDL 42, LDL 96,VLDL 37. A venous duplex examination recently performed revealed superficial thrombophlebitis involving the right great saphenous vein and an accessory branch. 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 Once again, the patient has been encouraged to elevate his lower extremities, remain active, avoid prolonged idle standing and sitting, and to lose weight. There has been improvement in the patient's swelling and edema while at home, but the patient has suffered a setback with only 1 week back on the job. The patient is to wear his graduated compression stockings of 20 to 30mmHg compression bilaterally, as acute superficial thrombophlebitis has been recently diagnosed in the right lower extremity, and ulcerations related to his venous disease are present on the left side. Nutritional optimization has been recommended. The patient has been advised to cease his smoking habit. Given the manifestations related to the patient's chronic venous disease, and findingson his recent venous duplex examination, it is felt that the patient is a candidate for endovenous laser ablation of the left great saphenous vein, a matter which has been discussed with the patient and his significant other at the bedside. The indications and risks have been explained. Expectations have been described. The patient's questions have been answered. The patient is to return in 1 week for reassessment. As mentioned, compression is to be administered bilaterally with graduated compression stockings of 20 to 30 mmHg compression, knee-high length, worn on a daily basis. Total time: 28 minutes 01/08/23 1229 <Electronically signed by Edgar Brooks MD> Cosigner Signature (if applicable): CC: ~ Signed [facility] Work Phone: [phone] History and physical note Author Dr. Brooks [facility] January 01, 2023 1:38pm Note Date/Time January 01, 2023 1:38pm [facility] [address] [place] [address] H&P Exam - Wound Care 01/01/23 1330 MR#: [id number] Acct: [id number] Name: SUKI ADORNO Rep #:[id number] : 1960 62 From: Edgar Yoder PCP: Dr. Kelsey Jacobs MD Status:REG RCR Location: History of Present Illness Date of Service: 01/01/23 Chief Complaint: Venous stasis ulceration, chronic venous hypertension with inflammation and ulceration, leg swelling, leg edema?left lower extremity History of Wound: This is a 62-year-old obese male who presented with an ulceration overlying the left medial malleolus. According to the patient and his significant-other female friend, the ulceration had been present for more than 2 years. The patient feels as though it is due to a foreign body which became stuck between his boot and skin causing a pressure ulceration. However, from a clinical standpoint, it is much more likely that this is related to chronic venous hypertension and associated venous disease. The patient relates swelling and edema in his lower extremities, which is worse at the end of each day. 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 He also sleeps in a recliner, although he insists that his lower extremities are at heart level, or higher. He is not very active during his time at home, often sitting for prolonged periods. The patient is a smoker,smoking 1 pack of cigarettes per day for many years. Appropriate counseling hasbeen undertaken as to the adverse effects of tobacco use. With respect to his ulceration, he was initially placed on oral Augmentin in the Emergency Department for cellulitis, and completed a course of doxycycline more recently, as prescribed by his primary care physician. The patient denies a history of deep vein thrombosis. The patient suffers from hypertension and obesity. His BMI is 40.3. The patient's history is negative for myocardial infarction, cerebrovascular accident, diabetes mellitus, pulmonary disease, renal disease, thyroid disease, and hyperlipidemia. [facility] Medical History Chronic venous hypertension w/ulcer and inflammation involv left side Chronic venous insufficiency DVT (deep venous thrombosis) Hx of hypoglycemia Hx of migraines Hx of seasonal allergies Hypertension Lipodermatosclerosis Seizures Venous stasis ulcer of ankle with fat layer exposed Wears glasses Home Medications amlodipine 5 mg tablet 5 mg PO DAILY #30 tabs 11/19/22 [Rx Last Taken Unknown] blood pressure monitor #1 ea 12/12/22 [Rx Last Taken Unknown] furosemide 20 mg tablet 20 mg PO DAILY #30 tabs 12/12/22 [Rx Last Taken Unknown] hydroxyzine HCl 25 mg tablet 25 mg PO QHS #5 tabs 12/12/22 [Rx Last Taken Unknown] ibuprofen 800 mg tablet 800 mg PO BID PRN 12/12/22 [History Last Taken Unknown] lisinopril 20 mg tablet 20 mg PO DAILY #30 tabs 12/12/22 [Rx Last Taken Unknown] nicotine (polacrilex) 4 mg buccal lozenge 4 mg buccal Q4H PRN nicotine cravings #108 ea 12/12/22 [Rx Last Taken Unknown] nicotine 21 mg/24 hr daily transdermal patch (Nicoderm CQ) 1 patch transdermal DAILY #28 ea 12/12/22 [Rx Last Taken Unknown] escitalopram oxalate 10 mg tablet (Lexapro) 30 mg PO DAILY 12/13/22 [History Last Taken Unknown] Allergy/AdvReac Type Severity Reaction Status Date / Time No Known Allergies Allergy Verified 12/12/22 08:56 Family History Father Angina at rest Anxiety Diabetes Myocardial infarction Heart disease Hypertension Hyperlipidemia Respiratory disease Cancer esophageal Mother Cancer lung Depression Hormone disorder Seizures Osteoporosis Brother Myocardial infarction Hyperlipidemia Surgical History H/O foot surgery History of hemorrhoidectomy History of nasal surgery Hx of hand surgery Social History household members: significant other housing: house current occupational status: employed current occupation: [employer] sexually active: Yes Smoking Status: Current every day smoker tobacco type: cigarettes quit status: considering quitting alcohol intake: current alcohol intake frequency: holidays/special occasions only substance use type: marijuana what type of physical activity do you participate in: walking and additional details: lifting frequency: 5-6 times per week seatbelt use: always do you feel safe at home: Yes Vital Signs Vital Signs Vital Signs: 01/01/23 08:15 Temperature 97.3 F L Temperature Source Temporal Pulse Rate 69 Respiratory Rate 18 Blood Pressure 163/96 H Blood Pressure Mean 118 Blood Pressure Source Monitor Weight Weight: 285 lb Body Mass Index (BMI) 40.3 Physical Exam Const alert, oriented x3, no apparent distress and well nourished Constitutional Narrative: The patient is obese. He is friendly and conversant. General Appearance: cooperative, comfortable, well kempt and well developed Orientation / Consciousness: awake, oriented to person, oriented to place and oriented to time Exam Limitations: no limitations HEENT normocephalic, head/scalp atraumatic and hearing grossly normal bilaterally Head and Scalp: normal to inspection, normocephalic and atraumatic External Ear: external ears normal Eyes PERRL and EOMs intact bilaterally General Eye: normal appearance of both eyes Neck full ROM Resp normal respiratory effort, normal air movement, no retractions and no use of accessory muscles Effort and Inspection: able to speak in complete sentences Extremity no calf tenderness General Extremity: Negative for clubbing or cyanosis Skin Wound Narrative: A clustered ulceration is noted overlying the left medial malleolus, with significant improvement. The ulceration has diminished in size since the patient was last seen and evaluated. There is a small amount of bioburden and nonviable tissue present. There is no obvious sign of infection or cellulitis. Swelling and edema appears to be well controlled, and minimal at this time. Hyperpigmentation and lipodermatosclerosis are noted in the gaiter areas bilaterally, more pronounced in the left lower extremity. Ulcer dimensions are documented elsewhere, with a decrease in size since the patient's last appointment. Neuro oriented x3, CN's II-XII intact bilaterally, moves all extremities and no focal motor deficits Sensorium / Orientation: awake, alert, oriented to person, oriented to place andoriented to time Psych Appearance: grossly normal and appropriate Attitude: calm Activity / Motor Behavior: appropriate eye contact Speech: normal speech Mood & Affect: euthymic mood Thought Process: normal thought process Thought Content: normal thought content Attention / Concentration: attention grossly intact Debridement Note Debridement Note Wound debrided: Left medial malleolus, clustered venous ulceration Laterality: Left Type of Debridement: Excisional debridement Anesthesia Used: 5% Lidocaine Gel Depth: Down to and including healthy tissue and in the subcutaneous layer Percentage of wound debrided: 100 Instrument Used: 5mm curette Severity: Fat Layer Exposed Amount of bleeding with debridement: Mild Bleeding Controlled with: Compression and gauze Patient tolerated procedure: Patient tolerated procedure well Post-Debridement Measurements and Additional Note: Post-Debridement Measurements/Treatment - Nurse 1 - General Ulcer Assessment Start: 12/20/22 08:15 Freq: Status: Active Protocol: LYLE Activity Type Activity Date Activity User E-sign Co-sign Detail Recorded Client Recorded Date Recorded By Document 12/20/22 08:15 DL [id number] 12/20/22 08:20 DL Document 12/25/22 08:32 AK [id number] 12/25/22 08:41 AK Document 12/27/22 12:55 DL [id number] 12/27/22 13:07 DL Document 01/01/23 08:15 DL Desktop 01/01/23 08:20 DL 12/20/22 12/25/22 12/27/22 08:15 08:32 12:55 - Today's Visit Information Type of service Nurse-only Follow-up Visit Nurse-only Visit (Physician/EXCHANGE CONSULTANT Visit ) Arrival Mode Ambulatory Ambulatory Ambulatory Transfer Assistance None Patient Identification Verified (Name & Yes Yes Yes ) Patient Requires Transmission-Based No No No Precautions Height and Weight Body Mass Index (BMI) 40.3 40.3 40.3 BMI Classification Obese Obese Obese Vital Signs Temperature (97.8 F-99.1 F) 96.5 F L 96.2 F L 97.5 F L Temperature Source Temporal Temporal Temporal Pulse Rate (60-100) 69 68 72 Pulse Location Monitor Monitor Monitor Respiratory Rate (12-18) 20 H 18 Respiratory rate source Observation Observation Blood Pressure (90/60-120/80) 156/92 H 150/101 H 154/93 H Blood Pressure Mean 113 117 113 Source Monitor Monitor Monitor Comment Removed 3M to shower last evening. History Since Last Visit- (Skip if this is Patient's initial visit) Have you changed medications since your No No No last visit? Any new allergies or adverse reactions No No No Had a fall/change in ADL's that may No No No increase risk of falls Signs or symptoms of abuse and/or No No No neglect since last visit Have you been in the hospital since your No No No last visit? Has dressing in place as prescribed Yes Yes No Has compression in place as prescribed Yes Yes No Has offloadiing in place as prescribed N/A N/A N/A Experienced any changes in pain level or No No Yes management Left Footwear Regular Shoe Right Footwear Regular Shoe Pain Scale: 0-10 Numeric Is Patient Pain Free? Yes Yes Yes 01/01/23 08:15 WC - Today's Visit Information Type of service Follow-up Visit (Physician/EXCHANGE CONSULTANT ) Arrival Mode Ambulatory Transfer Assistance None Patient Identification Verified (Name & Yes ) Patient Requires Transmission-Based No Precautions Height and Weight Body Mass Index (BMI) 40.3 BMI Classification Obese Vital Signs Temperature (97.8 F-99.1 F) 97.3 F L Temperature Source Temporal Pulse Rate (60-100) 69 Pulse Location Monitor Respiratory Rate (12-18) 18 Respiratory rate source Observation Blood Pressure (90/60-120/80) 163/96 H Blood Pressure Mean 118 Source Monitor Comment History Since Last Visit- (Skip if this is Patient's initial visit) Have you changed medications since your No last visit? Any new allergies or adverse reactions No Had a fall/change in ADL's that may No increase risk of falls Signs or symptoms of abuse and/or No neglect since last visit Have you been in the hospital since your No last visit? Has dressing in place as prescribed Yes Has compression in place as prescribed Yes Has offloadiing in place as prescribed N/A Experienced any changes in pain level or No management Left Footwear Right Footwear Pain Scale: 0-10 Numeric Is Patient Pain Free? Yes - Nurse 1 - General Ulcer Measurement Start: 12/20/22 08:15 Freq: Status: Active Protocol: Activity Type Activity Date Activity User E-sign Co-sign Detail Recorded Client Recorded Date Recorded By Document 12/20/22 08:15 DL [id number] 12/20/22 08:20 DL Document 12/25/22 08:32 AK [id number] 12/25/22 08:41 AK Document 12/27/22 12:55 DL [id number] 12/27/22 13:07 DL Document 01/01/23 08:15 DL Desktop 01/01/23 08:20 DL 12/20/22 12/25/22 12/27/22 08:15 08:32 12:55 Wound Center Nurse 1 #1 left medial ankle -Combined with other wound No -Current Size (cm) - Length 0.1 -Current Size (cm) - Width 0.1 -Current Size (cm) - Depth 0.1 -Total Square Cm 0.01 -Photo Taken Yes -Tunneling No -Undermining/Tunneling No -Circular Undermining No -Exudate Amt None Present None Present -Wound Margin Distinct, Outline Attached -Granulation Amt None Present (0 %) -Granulation Quality N/A -Slough/Fibrin No -Necrosis Amt None Present (0 Medium (34-66%) %) -Necrotic Tissue Type Eschar -Structure Exposed N/A N/A N/A -Texture (Glen-wound Skin Appearance) Scarring No Abnormality, Scarring Assessed -Moisture (Glen-wound Skin Appearance) Dry/Scaly No Abnormality, No Abnormality Assessed -Color (Glen-wound Skin Appearance) Hemosiderin No Abnormality, Hemosiderin Staining Assessed Staining -Temperature (Glen-wound Skin No Abnormality No Abnormality No Abnormality Appearance) (Pt Warm) (Pt Warm) (Pt Warm) -Tenderness on Palpation (Glen-wound No No No Skin Appearance) -Ulcer Cleansing Soap and Water Soap and Water Not Cleansed -Foul Odor after Cleansing No No No -Anesthetic Used 5% Lidocaine Gel -Wound Comment(s) Pt removed Unna Boot to shower last evening. Instructed to not shower until a few hrs before appt. Lower Limb Edema Present No Left Calf (cm) 42.5 41 44 Left Ankle (cm) 26.5 27 27.6 01/01/23 08:15 Wound Center Nurse 1 #1 left medial ankle -Combined with other wound -Current Size (cm) - Length 0.1 -Current Size (cm) - Width 0.1 -Current Size (cm) - Depth 0.1 -Total Square Cm 0.01 -Photo Taken Yes -Tunneling -Undermining/Tunneling -Circular Undermining -Exudate Amt None Present -Wound Margin Thickened -Granulation Amt Medium (34-66%) -Granulation Quality Pale -Slough/Fibrin -Necrosis Amt Medium (34-66%) -Necrotic Tissue Type Eschar -Structure Exposed N/A -Texture (Glen-wound Skin Appearance) Scarring -Moisture (Glen-wound Skin Appearance) Dry/Scaly -Color (Glen-wound Skin Appearance) Hemosiderin Staining -Temperature (Glen-wound Skin No Abnormality Appearance) (Pt Warm) -Tenderness on Palpation (Glen-wound No Skin Appearance) -Ulcer Cleansing Soap and Water -Foul Odor after Cleansing No -Anesthetic Used 5% Lidocaine Gel -Wound Comment(s) Lower Limb Edema Present Left Calf (cm) 42 Left Ankle (cm) 27.5 WC - Nurse 2 - General Ulcer CM Notes Start: 12/20/22 08:15 Freq: Status: Active Protocol: Activity Type Activity Date Activity User E-sign Co-sign Detail Recorded Client Recorded Date Recorded By Document 12/25/22 08:50 MW [id number] 12/25/22 08:56 MW Document 01/01/23 08:27 MW [id number] 01/01/23 08:31 MW 12/25/22 01/01/23 08:50 08:27 Wound Center Nurse 2 #1 left medial ankle -Time 08:50 08:28 -Correct Patient Yes Yes -Correct Side, Site, Position Yes Yes -Correct Procedure Yes Yes -Procedure Performed No Yes -Type of Procedure Debridement -Clinical Debridement Subcutaneous -Tissue Removed Subcutaneous -Post Debridement (cm) - Length 0.1 -Post Debridement (cm) - Width 0.1 -Post Debridement (cm) - Depth 0.1 -Total Square (Post) (cm) 0.01 -Area of Debridement (cm) - Length 0.1 -Area of Debridement (cm) - Width 0.1 -Total Square (Area) (cm) 0.01 -Tunneling No No -Undermining/Tunneling No No -Circular Undermining No No -Wound/Ulcer Outcome Not Healed Not Healed -Ulcer Cleansing Rinsed/ Irrigated with Saline -Foul Odor after Cleansing No -Bioengineered Tissue No -Bleeding Controlled with Pressure -Treatment Response Procedure Tolerated Well -Offloading No -Debridement - Subq, 1st 20sq cm Yes Pain Scale: 0-10 Numeric Is Patient Pain Free? Yes Yes - Nurse 3 - General Ulcer D/C NN Start: 12/20/22 08:15 Freq: Status: Active Protocol: Activity Type Activity Date Activity User E-sign Co-sign Detail Recorded Client Recorded Date Recorded By Document 12/20/22 08:15 DL [id number] 12/20/22 08:20 DL Document 12/25/22 09:14 DL [id number] 12/25/22 09:18 DL Document 12/27/22 12:55 DL [id number] 12/27/22 13:07 DL Document 01/01/23 08:37 ML [id number] 01/01/23 08:38 ML 12/20/22 12/25/22 12/27/22 08:15 09:14 12:55 Vital Signs Temperature (97.8 F-99.1 F) 96.5 F L 97.5 F L Temperature Source Temporal Temporal Pulse Rate (60-100) 69 72 Pulse Location Monitor Monitor Respiratory Rate (12-18) 20 H 18 Respiratory rate source Observation Observation Blood Pressure (90/60-120/80) 156/92 H 154/93 H Blood Pressure Mean 113 113 Source Monitor Monitor Comment Removed 3M to shower last evening. Pain Scale: 0-10 Numeric Is Patient Pain Free? Yes Yes Yes Wound Care Center Nurse 3 #1 left medial ankle -Ulcer Cleansing Soap and Water Rinsed/ Rinsed/ Irrigated with Irrigated with Saline Saline -Foul Odor after Cleansing No No No -Primary Dressing Applied -Other Dressing Unna Boot unna Unna -Primary Dressing Covered/Secured with Right -Lotion applied to leg before No compression wrap Left -Multi-Layered Wrap Application Unna Boot - Unna Boot - Unna Boot - Left ($) Left ($) Left ($) Treatment Response Procedure Procedure Procedure Tolerated Well Tolerated Well Tolerated Well WC - Visit Discharge Discharge Condition Stable Stable Stable Ambulatory Status Ambulatory Ambulatory Ambulatory Transportation Private Auto Private Auto Private Auto Notes: Dressing applied per Genia Drake RN today in clinic . 01/01/23 08:37 Vital Signs Temperature (97.8 F-99.1 F) Temperature Source Pulse Rate (60-100) Pulse Location Respiratory Rate (12-18) Respiratory rate source Blood Pressure (90/60-120/80) Blood Pressure Mean Source Comment Pain Scale: 0-10 Numeric Is Patient Pain Free? Yes Wound Care Center Nurse 3 #1 left medial ankle -Ulcer Cleansing Rinsed/ Irrigated with Saline -Foul Odor after Cleansing No -Primary Dressing Applied C Hydrogel ($) -Other Dressing -Primary Dressing Covered/Secured with Dry Gauze, Secured with Tape Right -Lotion applied to leg before compression wrap Left -Multi-Layered Wrap Application Treatment Response WC - Visit Discharge Discharge Condition Ambulatory Status Transportation Notes: Assessment/Plan Assessment/Plan (1) Venous stasis ulcer of ankle with fat layer exposed: CODE(S): I83.003 - Varicose veins of unspecified lower extremity with ulcer of ankle; L97.302 - 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 (2) Chronic venous hypertension w/ulcer and inflammation involv left side: CODE(S): I87.332 - Chronic venous hypertension (idiopathic) with ulcer andinflammation of left lower extremity; L97.929 - Non-pressure chronic ulcer of unspecified part of left lower leg with unspecified severity (3) Chronic venous insufficiency: CODE(S): I87.2 - Venous insufficiency (chronic) (peripheral) (4) Lipodermatosclerosis: CODE(S): I83.10 - Varicose veins of unspecified lower extremity with inflammation (5) Left leg swelling: CODE(S): M79.89 - Other specified soft tissue disorders (6) Leg edema, left: CODE(S): R60.0 - Localized edema (7) Hypertension: CODE(S): I10 - Essential (primary) hypertension (8) Tobacco abuse disorder: CODE(S): Z72.0 - Tobacco use (9) Tobacco abuse counseling: CODE(S): Z71.6 - Tobacco abuse counseling (10) History of seizures: CODE(S): Z87.898 - Personal history of other specified conditions (11) History of hemorrhoidectomy: CODE(S): Z98.890 - Other specified postprocedural states (12) History of hand surgery: CODE(S): Z98.890 - Other specified postprocedural states PLAN: Plan This is a 62-year-old obese male who presented with an ulceration overlying the left medial malleolus. This appears to be related to chronic venous hypertension with inflammation and chronic venous insufficiency. The patient also experiences swelling and edema in his lower extremities, more pronounced atthe end of the day. A lengthy discussion has been undertaken as to the appropriate means of management relative to the patient's chronic venous disease. Leg elevation has been recommended. The patient has been encouraged to sleep on a flat surface at night. His legs are to be at heart level, or higher, both while sleeping and during daytime hours. Prolonged idle sitting with his legs in a dependent position has been discouraged. Activity has been encouraged, with recruitment of the calf and foot muscle pumps. Weight loss hasalso been recommended. We are to continue compression to the left lower extremity by means of graduated compression stockings of 20 to 30 mmHg compression, knee-high length, which the patient has recently obtained. With respect to the left ankle ulceration, we are to utilize collagen hydrogel applied topically on a daily basis, and covered with gauze. The patient is to return in1 week for reassessment. Recent laboratory results from December 13, 2022, have been reviewed, with results as follows: Glucose 97, BUN 20, creatinine 1.23, total protein 7.6, albumin 3.6, calcium 8.9, AST 20, alkaline phosphatase 97, ALT 40, total bilirubin 0.40, cholesterol 175, triglycerides 184, sodium 140, potassium 4.4, chloride 103, HDL 42, LDL 96, VLDL 37. A venous duplex examination recently performed revealed superficial thrombophlebitis involving the right great saphenous vein and an accessory branch. 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 Once again, the patient has been encouraged to elevate his lower extremities, remain active, avoid prolonged idle standing and sitting, and to lose weight. The patient is scheduled to return to work within the next several days. There has been significant improvement within the last several weeks. Because of the finding of superficial thrombophlebitis, the noninvasive lower extremity arterial study,which have been ordered, was not performed. Nutritional optimization has been recommended. The patient has been advised to cease his smoking habit. Given the manifestations related to the patient's chronic venous disease, and findingson his recent venous duplex examination, it is felt that the patient is a candidate for endovenous laser ablation of the left great saphenous vein, a matter which has been discussed with the patient and his significant other at the bedside. The indications and risks have been explained. Expectations have been described. The patient's questions have been answered. The patient is to return in 1 week for reassessment. As mentioned, compression is to be administered bilaterally with graduated compression stockings of 20 to 30 mmHg compression, knee-high length, worn on a daily basis. Total time: 26 minutes 01/01/23 1338 <Electronically signed by Edgar Brooks MD> Cosigner Signature (if applicable): CC: ~ Signed [facility] Work Phone: [phone]) 409-297502-07-2023 History and physical note Author Dr. Brooks [facility] December 25, 2022 12:11pm Note Date/Time December 25, 2022 1 1:57am [facility] [address] [place] [id number] H&P Exam - Wound Care 12/25/22 1153 MR#: [id number] Acct: [id number] Name: SUKI ADORNO Rep #:[id number] : 1960 62 From: Edgar Yoder PCP: Dr. Kelsey Jacobs MD Status:REG RCR Location: History of Present Illness Date of Service: 12/25/22 Chief Complaint: Venous stasis ulceration, chronic venous hypertension with inflammation and ulceration, leg swelling, leg edema?left lower extremity History of Wound: This is a 62-year-old obese male who presented with an ulceration overlying the left medial malleolus. According to the patient and his significant-other female friend, the ulceration had been present for more than 2 years. The patient feels as though it is due to a foreign body which became stuck between his boot and skin causing a pressure ulceration. However, from a clinical standpoint, it is much more likely that this is related to chronic venous hypertension and associated venous disease. The patient relates swelling and edema in his lower extremities, which is worse at the end of each day. 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 He also sleeps in a recliner, although he insists that his lower extremities are at heart level, or higher. He is not very active during his time at home, often sitting for prolonged periods. The patient is a smoker,smoking 1 pack of cigarettes per day for many years. Appropriate counseling hasbeen undertaken as to the adverse effects of tobacco use. With respect to his ulceration, he was initially placed on oral Augmentin in the Emergency Department for cellulitis, and completed a course of doxycycline more recently, as prescribed by his primary care physician. The patient denies a history of deep vein thrombosis. The patient suffers from hypertension and obesity. His BMI is 40.3. The patient's history is negative for myocardial infarction, cerebrovascular accident, diabetes mellitus, pulmonary disease, renal disease, thyroid disease, and hyperlipidemia. [facility] Medical History Chronic venous hypertension w/ulcer and inflammation involv left side Chronic venous insufficiency DVT (deep venous thrombosis) Hx of hypoglycemia Hx of migraines Hx of seasonal allergies Hypertension Lipodermatosclerosis Seizures Venous stasis ulcer of ankle with fat layer exposed Wears glasses Home Medications amlodipine 5 mg tablet 5 mg PO DAILY #30 tabs 11/19/22 [Rx Last Taken Unknown] blood pressure monitor #1 ea 12/12/22 [Rx Last Taken Unknown] furosemide 20 mg tablet 20 mg PO DAILY #30 tabs 12/12/22 [Rx Last Taken Unknown] hydroxyzine HCl 25 mg tablet 25 mg PO QHS #5 tabs 12/12/22 [Rx Last Taken Unknown] ibuprofen 800 mg tablet 800 mg PO BID PRN 12/12/22 [History Last Taken Unknown] lisinopril 20 mg tablet 20 mg PO DAILY #30 tabs 12/12/22 [Rx Last Taken Unknown] nicotine (polacrilex) 4 mg buccal lozenge 4 mg buccal Q4H PRN nicotine cravings #108 ea 12/12/22 [Rx Last Taken Unknown] nicotine 21 mg/24 hr daily transdermal patch (Nicoderm CQ) 1 patch transdermal DAILY #28 ea 12/12/22 [Rx Last Taken Unknown] escitalopram oxalate 10 mg tablet (Lexapro) 30 mg PO DAILY 12/13/22 [History Last Taken Unknown] Allergy/AdvReac Type Severity Reaction Status Date / Time No Known Allergies Allergy Verified 12/12/22 08:56 Family History Father Angina at rest Anxiety Diabetes Myocardial infarction Heart disease Hypertension Hyperlipidemia Respiratory disease Cancer esophageal Mother Cancer lung Depression Hormone disorder Seizures Osteoporosis Brother Myocardial infarction Hyperlipidemia Surgical History H/O foot surgery History of hemorrhoidectomy History of nasal surgery Hx of hand surgery Social History household members: significant other housing: house current occupational status: employed current occupation: [employer] sexually active: Yes Smoking Status: Current every day smoker tobacco type: cigarettes quit status: considering quitting alcohol intake: current alcohol intake frequency: holidays/special occasions only substance use type: marijuana what type of physical activity do you participate in: walking and additional details: lifting frequency: 5-6 times per week seatbelt use: always do you feel safe at home: Yes Vital Signs Vital Signs Vital Signs: 12/25/22 08:32 Temperature 96.2 F L Temperature Source Temporal Pulse Rate 68 Blood Pressure 150/101 H Blood Pressure Mean 117 Blood Pressure Source Monitor Weight Weight: 285 lb Body Mass Index (BMI) 40.3 Physical Exam Const alert, oriented x3, no apparent distress and well nourished Constitutional Narrative: The patient is obese. He is friendly and conversant. General Appearance: cooperative, comfortable, well kempt and well developed Orientation / Consciousness: awake, oriented to person, oriented to place and oriented to time Exam Limitations: no limitations HEENT normocephalic, head/scalp atraumatic and hearing grossly normal bilaterally Head and Scalp: normal to inspection, normocephalic and atraumatic External Ear: external ears normal Eyes PERRL and EOMs intact bilaterally General Eye: normal appearance of both eyes Neck full ROM Resp normal respiratory effort, normal air movement, no retractions and no use of accessory muscles Effort and Inspection: able to speak in complete sentences Extremity no calf tenderness General Extremity: Negative for clubbing or cyanosis Skin Wound Narrative: A clustered ulceration is noted overlying the left medial malleolus. The ulceration has diminished in size since the patient was last seen and evaluated. There is a small amount of bioburden and nonviable tissue present. There is noobvious sign of infection or cellulitis. Swelling and edema appears to be well controlled, and minimal at this time. Hyperpigmentation and lipodermatosclerosis are noted in the gaiter areas bilaterally, more pronounced in the left lower extremity. Ulcer dimensions are documented elsewhere, with a decrease in size since the patient's last appointment. Neuro oriented x3, CN's II-XII intact bilaterally, moves all extremities and no focal motor deficits Sensorium / Orientation: awake, alert, oriented to person, oriented to place andoriented to time Psych Appearance: grossly normal and appropriate Attitude: calm Activity / Motor Behavior: appropriate eye contact Speech: normal speech Mood & Affect: euthymic mood Thought Process: normal thought process Thought Content: normal thought content Attention / Concentration: attention grossly intact Debridement Note Debridement Note No debridement was completed: No debridement was completed today Post-Debridement Measurements and Additional Note: Post-Debridement Measurements/Treatment - Nurse 1 - General Ulcer Assessment Start: 12/20/22 08:15 Freq: Status: Active Protocol: LYLE Activity Type Activity Date Activity User E-sign Co-sign Detail Recorded Client Recorded Date Recorded By Document 12/20/22 08:15 DL [id number] 12/20/22 08:20 DL Document 12/25/22 08:32 AK [id number] 12/25/22 08:41 AK 12/20/22 12/25/22 08:15 08:32 - Today's Visit Information Type of service Nurse-only Follow-up Visit Visit (Physician/EXCHANGE CONSULTANT ) Arrival Mode Ambulatory Ambulatory Patient Identification Verified (Name & Yes Yes ) Patient Requires Transmission-Based No No Precautions Height and Weight Body Mass Index (BMI) 40.3 40.3 BMI Classification Obese Obese Vital Signs Temperature (97.8 F-99.1 F) 96.5 F L 96.2 F L Temperature Source Temporal Temporal Pulse Rate (60-100) 69 68 Pulse Location Monitor Monitor Respiratory Rate (12-18) 20 H Respiratory rate source Observation Blood Pressure (90/60-120/80) 156/92 H 150/101 H Blood Pressure Mean 113 117 Source Monitor Monitor History Since Last Visit- (Skip if this is Patient's initial visit) Have you changed medications since your No No last visit? Any new allergies or adverse reactions No No Had a fall/change in ADL's that may No No increase risk of falls Signs or symptoms of abuse and/or No No neglect since last visit Have you been in the hospital since your No No last visit? Has dressing in place as prescribed Yes Yes Has compression in place as prescribed Yes Yes Has offloadiing in place as prescribed N/A N/A Experienced any changes in pain level or No No management Left Footwear Regular Shoe Right Footwear Regular Shoe Pain Scale: 0-10 Numeric Is Patient Pain Free? Yes Yes MOSES - Nurse 1 - General Ulcer Measurement Start: 12/20/22 08:15 Freq: Status: Active Protocol: Activity Type Activity Date Activity User E-sign Co-sign Detail Recorded Client Recorded Date Recorded By Document 12/20/22 08:15 DL [id number] 12/20/22 08:20 DL Document 12/25/22 08:32 AK [id number] 12/25/22 08:41 AK 12/20/22 12/25/22 08:15 08:32 Wound Center Nurse 1 #1 left medial ankle -Combined with other wound No -Current Size (cm) - Length 0.1 -Current Size (cm) - Width 0.1 -Current Size (cm) - Depth 0.1 -Total Square Cm 0.01 -Photo Taken Yes -Tunneling No -Undermining/Tunneling No -Circular Undermining No -Exudate Amt None Present -Granulation Amt None Present (0 %) -Granulation Quality N/A -Slough/Fibrin No -Necrosis Amt None Present (0 %) -Structure Exposed N/A N/A -Texture (Glen-wound Skin Appearance) Scarring No Abnormality, Assessed -Moisture (Glen-wound Skin Appearance) Dry/Scaly No Abnormality, Assessed -Color (Glen-wound Skin Appearance) Hemosiderin No Abnormality, Staining Assessed -Temperature (Glen-wound Skin No Abnormality No Abnormality Appearance) (Pt Warm) (Pt Warm) -Tenderness on Palpation (Glen-wound No No Skin Appearance) -Ulcer Cleansing Soap and Water Soap and Water -Foul Odor after Cleansing No No -Anesthetic Used 5% Lidocaine Gel Lower Limb Edema Present No Left Calf (cm) 42.5 41 Left Ankle (cm) 26.5 27 WC - Nurse 2 - General Ulcer CM Notes Start: 12/20/22 08:15 Freq: Status: Active Protocol: Activity Type Activity Date Activity User E-sign Co-sign Detail Recorded Client Recorded Date Recorded By Document 12/25/22 08:50 MW [id number] 12/25/22 08:56 MW 12/25/22 08:50 Wound Center Nurse 2 #1 left medial ankle -Time 08:50 -Correct Patient Yes -Correct Side, Site, Position Yes -Correct Procedure Yes -Procedure Performed No -Tunneling No -Undermining/Tunneling No -Circular Undermining No -Wound/Ulcer Outcome Not Healed Pain Scale: 0-10 Numeric Is Patient Pain Free? Yes WC - Nurse 3 - General Ulcer D/C NN Start: 12/20/22 08:15 Freq: Status: Active Protocol: Activity Type Activity Date Activity User E-sign Co-sign Detail Recorded Client Recorded Date Recorded By Document 12/20/22 08:15 DL [id number] 12/20/22 08:20 DL Document 12/25/22 09:14 DL [id number] 12/25/22 09:18 DL 12/20/22 12/25/22 08:15 09:14 Vital Signs Temperature (97.8 F-99.1 F) 96.5 F L Temperature Source Temporal Pulse Rate (60-100) 69 Pulse Location Monitor Respiratory Rate (12-18) 20 H Respiratory rate source Observation Blood Pressure (90/60-120/80) 156/92 H Blood Pressure Mean 113 Source Monitor Pain Scale: 0-10 Numeric Is Patient Pain Free? Yes Yes Wound Care Center Nurse 3 #1 left medial ankle -Ulcer Cleansing Soap and Water Rinsed/ Irrigated with Saline -Foul Odor after Cleansing No No -Other Dressing Unna Boot unna Right -Lotion applied to leg before No compression wrap Left -Multi-Layered Wrap Application Unna Boot - Unna Boot - Left ($) Left ($) Treatment Response Procedure Procedure Tolerated Well Tolerated Well WC - Visit Discharge Discharge Condition Stable Stable Ambulatory Status Ambulatory Ambulatory Transportation Private Auto Private Auto Notes: Dressing applied per Genia Drake RN today in clinic . Assessment/Plan Assessment/Plan (1) Venous stasis ulcer of ankle with fat layer exposed: CODE(S): I83.003 - Varicose veins of unspecified lower extremity with ulcer of ankle; L97.302 - 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 (2) Chronic venous hypertension w/ulcer and inflammation involv left side: CODE(S): I87.332 - Chronic venous hypertension (idiopathic) with ulcer andinflammation of left lower extremity; L97.929 - Non-pressure chronic ulcer of unspecified part of left lower leg with unspecified severity (3) Chronic venous insufficiency: CODE(S): I87.2 - Venous insufficiency (chronic) (peripheral) (4) Lipodermatosclerosis: CODE(S): I83.10 - Varicose veins of unspecified lower extremity with inflammation (5) Left leg swelling: CODE(S): M79.89 - Other specified soft tissue disorders (6) Leg edema, left: CODE(S): R60.0 - Localized edema (7) Hypertension: CODE(S): I10 - Essential (primary) hypertension (8) Tobacco abuse disorder: CODE(S): Z72.0 - Tobacco use (9) Tobacco abuse counseling: CODE(S): Z71.6 - Tobacco abuse counseling (10) History of seizures: CODE(S): Z87.898 - Personal history of other specified conditions (11) History of hemorrhoidectomy: CODE(S): Z98.890 - Other specified postprocedural states (12) History of hand surgery: CODE(S): Z98.890 - Other specified postprocedural states PLAN: Plan This is a 62-year-old obese male who presented with an ulceration overlying the left medial malleolus. This appears to be related to chronic venous hypertension with inflammation and chronic venous insufficiency. The patient also experiences swelling and edema in his lower extremities, more pronounced atthe end of the day. A lengthy discussion has been undertaken as to the appropriate means of management relative to the patient's chronic venous disease. Leg elevation has been recommended. The patient has been encouraged to sleep on a flat surface at night. His legs are to be at heart level, or higher, both while sleeping and during daytime hours. Prolonged idle sitting with his legs in a dependent position has been discouraged. Activity has been encouraged, with recruitment of the calf and foot muscle pumps. Weight loss hasalso been recommended. We are to continue compression to the left lower extremity by means of an Unna boot, which will be applied twice weekly. We are to use Promogran topically to the ulceration. The patient is to return in 1 week for reassessment. Recent laboratory results from December 13, 2022, have been reviewed, with results as follows: Glucose 97, BUN 20, creatinine 1.23, total protein 7.6, albumin 3.6, calcium 8.9, AST 20, alkaline phosphatase 97, ALT 40, total bilirubin 0.40, cholesterol 175, triglycerides 184, sodium 140, potassium 4.4, chloride 103, HDL 42, LDL 96, VLDL 37. A venous duplex examination recently performed revealed superficial thrombophlebitis involving the right great saphenous vein and an accessory branch. 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 Once again, the patient has been encouraged to elevate his lower extremities, remain active, avoid prolonged idle standing and sitting, and to lose weight. We are to provide the patient an excuse to remain off of work for another 2 weeks. Compression will be implemented by means of an Unna boot to the left lower extremity, which will be changed twice weekly. Promogran will be applied topically to the ulceration. There has been significant improvement within the last several weeks. Because of the finding of superficial thrombophlebitis, thenoninvasive lower extremity arterial study, which have been ordered, was not performed. Nutritional optimization has been recommended. The patient has beenadvised to cease his smoking habit. Given the manifestations related to the patient's chronic venous disease, and findings on his recent venous duplex examination, it is felt that the patient is a candidate for endovenous laser ablation of the left great saphenous vein, a matter which has been discussed with the patient and his significant other at the bedside. The indications and risks have been explained. Expectations have been described. Patient's questions have been answered. The prescription has been provided for graduated compression stockings of 20 to 30 mmHg compression, which the patient is to obtain within the next few days, and will be worn on a daily basis once the Unnaboot on the left lower extremity is no longer felt necessary. The patient is toreturn in 1 week for reassessment. Compression to the right lower extremity is to be implemented by means of a Tubigrip of 20 to 30 mmHg compression, or graduated compression stockings of a similar degree of compression, once obtained. Total time: 28 minutes 12/25/22 1211 <Electronically signed by Edgar Brooks MD> Cosigner Signature (if applicable): CC: ~ Signed [facility] Work Phone: [phone] History and physical note Author Dr. Brooks [facility] December 18, 2022 2:50pm Note Date/Time December 18, 2022 2 :50pm [facility] [address] [place] [address] H&P Exam - Wound Care 12/18/22 1436 MR#: [id number] Acct: [id number] Name: SUKI ADORNO Rep #:[id number] : 1960 62 From: Edgar Yoder PCP: Dr. Kelsey Jacobs MD Status:REG RCR Location: History of Present Illness Date of Service: 12/18/22 Chief Complaint: Venous stasis ulceration, chronic venous hypertension with inflammation and ulceration, leg swelling, leg edema?left lower extremity History of Wound: This is a 62-year-old obese male who presented with an ulceration overlying the left medial malleolus. According to the patient and his significant-other female friend, the ulceration had been present for more than 2 years. The patient feels as though it is due to a foreign body which became stuck between his boot and skin causing a pressure ulceration. However, from a clinical standpoint, it is much more likely that this is related to chronic venous hypertension and associated venous disease. The patient relates swelling and edema in his lower extremities, which is worse at the end of each day. 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 He also sleeps in a recliner, although he insists that his lower extremities are at heart level, or higher. He is not very active during his time at home, often sitting for prolonged periods. The patient is a smoker,smoking 1 pack of cigarettes per day for many years. Appropriate counseling hasbeen undertaken as to the adverse effects of tobacco use. With respect to his ulceration, he was initially placed on oral Augmentin in the Emergency Department for cellulitis, and completed a course of doxycycline more recently, as prescribed by his primary care physician. The patient denies a history of deep vein thrombosis. The patient suffers from hypertension and obesity. His BMI is 40.3. The patient's history is negative for myocardial infarction, cerebrovascular accident, diabetes mellitus, pulmonary disease, renal disease, thyroid disease, and hyperlipidemia. PFSH Medical History Chronic venous hypertension w/ulcer and inflammation involv left side Chronic venous insufficiency DVT (deep venous thrombosis) Hx of hypoglycemia Hx of migraines Hx of seasonal allergies Hypertension Lipodermatosclerosis Seizures Venous stasis ulcer of ankle with fat layer exposed Wears glasses Home Medications amlodipine 5 mg tablet 5 mg PO DAILY #30 tabs 11/19/22 [Rx Last Taken Unknown] blood pressure monitor #1 ea 12/12/22 [Rx Last Taken Unknown] furosemide 20 mg tablet 20 mg PO DAILY #30 tabs 12/12/22 [Rx Last Taken Unknown] hydroxyzine HCl 25 mg tablet 25 mg PO QHS #5 tabs 12/12/22 [Rx Last Taken Unknown] ibuprofen 800 mg tablet 800 mg PO BID PRN 12/12/22 [History Last Taken Unknown] lisinopril 20 mg tablet 20 mg PO DAILY #30 tabs 12/12/22 [Rx Last Taken Unknown] nicotine (polacrilex) 4 mg buccal lozenge 4 mg buccal Q4H PRN nicotine cravings #108 ea 12/12/22 [Rx Last Taken Unknown] nicotine 21 mg/24 hr daily transdermal patch (Nicoderm CQ) 1 patch transdermal DAILY #28 ea 12/12/22 [Rx Last Taken Unknown] escitalopram oxalate 10 mg tablet (Lexapro) 30 mg PO DAILY 12/13/22 [History Last Taken Unknown] Allergy/AdvReac Type Severity Reaction Status Date / Time No Known Allergies Allergy Verified 12/12/22 08:56 Family History Father Angina at rest Anxiety Diabetes Myocardial infarction Heart disease Hypertension Hyperlipidemia Respiratory disease Cancer esophageal Mother Cancer lung Depression Hormone disorder Seizures Osteoporosis Brother Myocardial infarction Hyperlipidemia Surgical History H/O foot surgery History of hemorrhoidectomy History of nasal surgery Hx of hand surgery Social History household members: significant other housing: house current occupational status: employed current occupation: [employer] sexually active: Yes Smoking Status: Current every day smoker tobacco type: cigarettes quit status: considering quitting alcohol intake: current alcohol intake frequency: holidays/special occasions only substance use type: marijuana what type of physical activity do you participate in: walking and additional details: lifting frequency: 5-6 times per week seatbelt use: always do you feel safe at home: Yes Vital Signs Vital Signs Vital Signs: 12/18/22 08:17 Temperature 97.2 F L Temperature Source Temporal Pulse Rate 71 Blood Pressure 169/95 H Blood Pressure Mean 119 Blood Pressure Source Monitor Weight Weight: 285 lb Body Mass Index (BMI) 40.3 Physical Exam Const alert, oriented x3, no apparent distress and well nourished Constitutional Narrative: The patient is obese. He is friendly and conversant. General Appearance: cooperative, comfortable, well kempt and well developed Orientation / Consciousness: awake, oriented to person, oriented to place and oriented to time Exam Limitations: no limitations HEENT normocephalic, head/scalp atraumatic and hearing grossly normal bilaterally Head and Scalp: normal to inspection, normocephalic and atraumatic External Ear: external ears normal Eyes PERRL and EOMs intact bilaterally General Eye: normal appearance of both eyes Neck full ROM Resp normal respiratory effort, normal air movement, no retractions and no use of accessory muscles Effort and Inspection: able to speak in complete sentences Extremity no calf tenderness General Extremity: Negative for clubbing or cyanosis Skin Wound Narrative: A clustered ulceration is noted overlying the left medial malleolus. The ulceration has diminished in size since the patient was last seen and evaluated. There is a small amount of bioburden and nonviable tissue present. There is noobvious sign of infection or cellulitis. Mild swelling and edema is noted in the lower extremities bilaterally, though significantly improved over the last several weeks. Hyperpigmentation and lipodermatosclerosis are noted in the gaiter areas bilaterally, more pronounced in the left lower extremity. Ulcer dimensions are documented elsewhere, with a decrease in size since the patient'slast appointment. Neuro oriented x3, CN's II-XII intact bilaterally, moves all extremities and no focal motor deficits Sensorium / Orientation: awake, alert, oriented to person, oriented to place andoriented to time Psych Appearance: grossly normal and appropriate Attitude: calm Activity / Motor Behavior: appropriate eye contact Speech: normal speech Mood & Affect: euthymic mood Thought Process: normal thought process Thought Content: normal thought content Attention / Concentration: attention grossly intact Debridement Note Debridement Note Wound debrided: Left medial malleolus, clustered ulceration Laterality: Left Type of Debridement: Excisional debridement Anesthesia Used: 5% Lidocaine Gel and Cetacaine Depth: Down to and including healthy tissue and in the subcutaneous layer Percentage of wound debrided: 100 Instrument Used: 3mm curette Severity: Fat Layer Exposed Amount of bleeding with debridement: Mild Bleeding Controlled with: Compression and gauze Patient tolerated procedure: Patient tolerated procedure well Post-Debridement Measurements and Additional Note: Post-Debridement Measurements/Treatment - Nurse 1 - General Ulcer Assessment Start: 12/04/22 09:14 Freq: Status: Active Protocol: LYLE Activity Type Activity Date Activity User E-sign Co-sign Detail Recorded Client Recorded Date Recorded By Document 12/04/22 09:14 MW [id number] 12/04/22 09:37 MW Document 12/11/22 08:03 [facility] [id number] 12/11/22 08:07 [facility] Document 12/13/22 09:45 [facility] [id number] 12/13/22 11:12 [facility] Document 12/18/22 08:17 [place] [id number] 12/18/22 08:22 AK 12/04/22 12/11/22 12/13/22 09:14 08:03 09:45 - Today's Visit Information Type of service Initial Visit Follow-up Visit Nurse-only (Physician/EXCHANGE CONSULTANT Visit ) Arrival Mode Ambulatory Ambulatory Ambulatory Transfer Assistance None None None Accompanied by significant and other daughter Patient Identification Verified (Name & Yes Yes Yes ) Patient Requires Transmission-Based No No No Precautions Safety Precautions NA Height and Weight Height 5 ft 10.5 in Weight 285 lb Weight in Pounds 285.0 lbs Weight Measurement Method Estimated by Patient Body Mass Index (BMI) 40.3 40.3 40.3 BMI Classification Obese Obese Obese BSA - Anastacia 2.44 Vital Signs Temperature (97.8 F-99.1 F) 97.0 F L 97.2 F L 97.1 F L Temperature Source Temporal Temporal Temporal Pulse Rate (60-100) 61 79 70 Pulse Location Monitor Monitor Monitor Respiratory Rate (12-18) 16 16 16 Respiratory rate source Observation Observation Observation Oxygen Delivery Method Room Air Room Air Room Air Blood Pressure (90/60-120/80) 189/112 H 173/106 H 143/92 H Blood Pressure Mean 137 128 109 Source Monitor Monitor Monitor Position Sitting Sitting Sitting Blood Pressure Location Right Arm Left Arm Left Arm Comment pt has been seeing pcp for bp History Since Last Visit- (Skip if this is Patient's initial visit) Have you changed medications since your No Yes last visit? Any new allergies or adverse reactions No No Had a fall/change in ADL's that may No No increase risk of falls Signs or symptoms of abuse and/or No No neglect since last visit Have you been in the hospital since your No No last visit? Has dressing in place as prescribed Yes Yes Has compression in place as prescribed Yes Yes Has offloadiing in place as prescribed N/A N/A Experienced any changes in pain level or No No management Left Footwear Regular Shoe Regular Shoe Regular Shoe Right Footwear Regular Shoe Regular Shoe Regular Shoe Pain Scale: 0-10 Numeric Is Patient Pain Free? Yes Yes Yes Lower Extremity Assessment/ Foot Assessment/ Toe Nail Assessment Right -Posterior Tibial Palpable Yes -Posterior Tibial Doppler Multiphasic -Dorsalis Pedis Palpable Yes -Dorsalis Pedis Doppler Multiphasic -Extremity Color Hemosiderin -Hair Growth on Legs No -Hair Growth on Toes No -Temperature of Extremity Warm -Dependent Rubor No -Lipodermatosclerosis No -Other Deformity No -Prior Foot Ulcer No -Charcot Joint No -Prior Amputation No -Thick Yes -Discolored Yes -Deformed No -Improper Length & Hygeine Yes Left -Posterior Tibial Palpable Yes -Posterior Tibial Doppler Multiphasic -Dorsalis Pedis Palpable Yes -Dorsalis Pedis Doppler Multiphasic -Extremity Color Hemosiderin -Hair Growth on Legs No -Hair Growth on Toes No -Temperature of Extremity Warm -Capillary Refill Less than 3 Seconds -Dependent Rubor No -Lipodermatosclerosis No -Other Deformity No -Prior Foot Ulcer No -Charcot Joint No -Prior Amputation No -Thick Yes -Discolored Yes -Deformed No -Improper Length & Hygeine Yes Neuropathy Assessment Feet - Top Side and Bottom <Entered> (a) Communication Assessment Preferred language Malian Department Manager Required No Able to Read Yes Able to Write Yes Communication Tools None Caregiver Communication Skills No Impairment Impairment Right Hearing Abillity Normal Left Hearing Abillity Normal Visual Assistive Devices Glasses Teaching Assessment Preferences Verbal,Written, Audio/Visual, Demonstration Barriers to Learning None Readiness To Learn Excellent Willingness to Engage in Self Management High Activies Readiness to Engage in Self Management High Activities Anxiety Level Calm Cooperation Cooperative Perception Coherent Interest in Health Problem Asks Questions Education Importance Acknowledges Need Does Patient Smoke tobacco or other Yes substances Smoking Status Current every day smoker Is Patient Diabetic No Functional Assessment Recent Decline in Ability to Perform Denies Any Declines Assistive Device With Patient No Culture/Confucianist/Environmental Services Lead Cultural/Confucianist Needs that may affect No Treatment Plan Would you allow our hospital cooker tender to No meet you for the purpose of spiritual/ emotional support? Environmental Services Lead to contact place of sabianist No Teaching: Wound Center *Welcome to the Wound Center -Person Taught Patient -Teaching Method Discussion -Response to teaching Verbalize understanding 12/18/22 08:17 WC - Today's Visit Information Type of service Follow-up Visit (Physician/EXCHANGE CONSULTANT ) Arrival Mode Ambulatory Transfer Assistance Accompanied by Patient Identification Verified (Name & Yes ) Patient Requires Transmission-Based No Precautions Safety Precautions Height and Weight Height Weight Weight in Pounds Weight Measurement Method Body Mass Index (BMI) 40.3 BMI Classification Obese BSA - Anastacia Vital Signs Temperature (97.8 F-99.1 F) 97.2 F L Temperature Source Temporal Pulse Rate (60-100) 71 Pulse Location Monitor Respiratory Rate (12-18) Respiratory rate source Oxygen Delivery Method Blood Pressure (90/60-120/80) 169/95 H Blood Pressure Mean 119 Source Monitor Position Blood Pressure Location Comment History Since Last Visit- (Skip if this is Patient's initial visit) Have you changed medications since your No last visit? Any new allergies or adverse reactions No Had a fall/change in ADL's that may No increase risk of falls Signs or symptoms of abuse and/or No neglect since last visit Have you been in the hospital since your No last visit? Has dressing in place as prescribed Yes Has compression in place as prescribed Yes Has offloadiing in place as prescribed N/A Experienced any changes in pain level or No management Left Footwear Regular Shoe Right Footwear Regular Shoe Pain Scale: 0-10 Numeric Is Patient Pain Free? Yes Lower Extremity Assessment/ Foot Assessment/ Toe Nail Assessment Right -Posterior Tibial Palpable -Posterior Tibial Doppler -Dorsalis Pedis Palpable -Dorsalis Pedis Doppler -Extremity Color -Hair Growth on Legs -Hair Growth on Toes -Temperature of Extremity -Dependent Rubor -Lipodermatosclerosis -Other Deformity -Prior Foot Ulcer -Charcot Joint -Prior Amputation -Thick -Discolored -Deformed -Improper Length & Hygeine Left -Posterior Tibial Palpable -Posterior Tibial Doppler -Dorsalis Pedis Palpable -Dorsalis Pedis Doppler -Extremity Color -Hair Growth on Legs -Hair Growth on Toes -Temperature of Extremity -Capillary Refill -Dependent Rubor -Lipodermatosclerosis -Other Deformity -Prior Foot Ulcer -Charcot Joint -Prior Amputation -Thick -Discolored -Deformed -Improper Length & Hygeine Neuropathy Assessment Feet - Top Side and Bottom Communication Assessment Preferred language instructor Required Able to Read Able to Write Communication Tools Caregiver Communication Skills Impairment Right Hearing Abillity Left Hearing Abillity Visual Assistive Devices Teaching Assessment Preferences Barriers to Learning Readiness To Learn Willingness to Engage in Self Management Activies Readiness to Engage in Self Management Activities Anxiety Level Cooperation Perception Interest in Health Problem Education Importance Does Patient Smoke tobacco or other substances Smoking Status Is Patient Diabetic Functional Assessment Recent Decline in Ability to Perform Assistive Device With Patient Culture/Confucianist/Environmental Services Lead Cultural/Confucianist Needs that may affect Treatment Plan Would you allow our hospital cooker tender to meet you for the purpose of spiritual/ emotional support? Environmental Services Lead to contact place of sabianist Teaching: Wound Center *Welcome to the Wound Center -Person Taught -Teaching Method -Response to teaching (a) 1 - + WC - Nurse 1 - General Ulcer Measurement Start: 12/04/22 09:14 Freq: Status: Active Protocol: Activity Type Activity Date Activity User E-sign Co-sign Detail Recorded Client Recorded Date Recorded By Document 12/04/22 09:14 MW [id number] 12/04/22 09:37 MW Document 12/11/22 08:03 [facility] [id number] 12/11/22 08:07 BMF Document 12/13/22 09:45 [facility] [id number] 12/13/22 11:12 BM Document 12/18/22 08:17 AK [id number] 12/18/22 08:22 AK 12/04/22 12/11/22 12/13/22 09:14 08:03 09:45 Wound Center Nurse 1 #1 left medial ankle -Combined with other wound No No -Current Size (cm) - Length 4.5 4.3 -Current Size (cm) - Width 5.0 3 -Current Size (cm) - Depth 0.1 0.2 -Total Square Cm 22.50 12.9 -Date of Last Picture (Recall this 12/04/22 12/11/22 field) -Photo Taken Yes Yes -Epithelialization None Present None Present -Tunneling No No -Undermining/Tunneling No No -Circular Undermining No No -Change in Wound Grade/Stage -Exudate Amt Large Medium -Exudate Type Serosanguineous Serosanguineous -Wound Margin Flat & Intact Distinct, Outline Attached -Granulation Amt None Present (0 Small (1-33%) %) -Granulation Quality N/A -Slough/Fibrin Yes Yes -Necrosis Amt Large (67-100%) Large (67-100%) -Necrotic Tissue Type Adherent Slough -Structure Exposed N/A -Texture (Glen-wound Skin Appearance) Assessed, Assessed, Assessed, Localized Edema Scarring Scarring -Moisture (Glen-wound Skin Appearance) No Abnormality, Assessed,Dry/ Assessed,Dry/ Assessed Scaly Scaly -Color (Glen-wound Skin Appearance) Assessed, Assessed, Assessed, Hemosiderin Hemosiderin Hemosiderin Staining Staining Staining -Temperature (Glen-wound Skin No Abnormality No Abnormality Appearance) (Pt Warm) (Pt Warm) -Tenderness on Palpation (Glen-wound No No Skin Appearance) -Ulcer Cleansing Rinsed/ Soap and Water Soap and Water Irrigated with Saline -Foul Odor after Cleansing No No -Anesthetic Used 5% Lidocaine 5% Lidocaine Gel Gel Lower Limb Edema Present Yes Yes Yes Right Calf (cm) 44.5 42 42 Right Ankle (cm) 29.0 26.6 27 Left Calf (cm) 48.5 43 42 Left Ankle (cm) 30.5 27.6 27.5 12/18/22 08:17 Wound Center Nurse 1 #1 left medial ankle -Combined with other wound -Current Size (cm) - Length 4.5 -Current Size (cm) - Width 2.6 -Current Size (cm) - Depth 0.1 -Total Square Cm 11.70 -Date of Last Picture (Recall this 12/18/22 field) -Photo Taken Yes -Epithelialization -Tunneling No -Undermining/Tunneling No -Circular Undermining No -Change in Wound Grade/Stage No -Exudate Amt Medium -Exudate Type Serosanguineous -Wound Margin Distinct, Outline Attached -Granulation Amt Medium (34-66%) -Granulation Quality [place] -Slough/Fibrin Yes -Necrosis Amt Medium (34-66%) -Necrotic Tissue Type Adherent Slough -Structure Exposed N/A -Texture (Glen-wound Skin Appearance) No Abnormality, Assessed -Moisture (Glen-wound Skin Appearance) No Abnormality, Assessed -Color (Glen-wound Skin Appearance) No Abnormality, Assessed -Temperature (Glen-wound Skin No Abnormality Appearance) (Pt Warm) -Tenderness on Palpation (Glen-wound No Skin Appearance) -Ulcer Cleansing Rinsed/ Irrigated with Saline -Foul Odor after Cleansing No -Anesthetic Used 5% Lidocaine Gel Lower Limb Edema Present Right Calf (cm) Right Ankle (cm) Left Calf (cm) 43 Left Ankle (cm) 27.5 WC - Nurse 2 - General Ulcer CM Notes Start: 12/04/22 09:14 Freq: Status: Active Protocol: Activity Type Activity Date Activity User E-sign Co-sign Detail Recorded Client Recorded Date Recorded By Document 12/04/22 11:34 PL [id number] 12/04/22 11:36 PL Document 12/11/22 11:33 PL [id number] 12/11/22 11:34 PL Document 12/18/22 08:34 MW [id number] 12/18/22 08:45 MW 12/04/22 12/11/22 12/18/22 11:34 11:33 08:34 Wound Center Nurse 2 #1 left medial ankle -Time 10:03 08:34 08:36 -Correct Patient Yes Yes Yes -Correct Side, Site, Position Yes Yes Yes -Correct Procedure Yes Yes Yes -Procedure Performed Yes Yes Yes -Type of Procedure Debridement Debridement -Type of Procedure Debridement -Clinical Debridement Subcutaneous Subcutaneous Subcutaneous -Tissue Removed Subcutaneous Subcutaneous Subcutaneous -Post Debridement (cm) - Length 4.5 4.3 1.0 -Post Debridement (cm) - Width 5.0 3.0 0.4 -Post Debridement (cm) - Depth 0.1 0.2 0.1 -Total Square (Post) (cm) 22.50 12.90 0.40 -Area of Debridement (cm) - Length 4.5 4.3 1.0 -Area of Debridement (cm) - Width 5.0 3.0 0.4 -Total Square (Area) (cm) 22.50 12.90 0.40 -Tunneling No No No -Undermining/Tunneling No No No -Circular Undermining No No No -Wound/Ulcer Outcome Not Healed Not Healed Not Healed -Ulcer Cleansing Rinsed/ Rinsed/ Rinsed/ Irrigated with Irrigated with Irrigated with Saline Saline Saline -Foul Odor after Cleansing No No No -Bioengineered Tissue No No No -Bleeding Controlled with Pressure Pressure Pressure -Treatment Response Procedure Procedure Procedure Tolerated Well Tolerated Well Tolerated Well -Offloading No -Debridement - Subq, 1st 20sq cm Yes Yes Yes -Debridement, SubQ, ea addt'l 20sq cm 1 or part thereof Pain Scale: 0-10 Numeric Is Patient Pain Free? Yes Yes Yes WC - Nurse 3 - General Ulcer D/C NN Start: 12/04/22 09:14 Freq: Status: Active Protocol: Activity Type Activity Date Activity User E-sign Co-sign Detail Recorded Client Recorded Date Recorded By Document 12/04/22 10:59 MW [id number] 12/04/22 11:01 MW Document 12/11/22 08:53 DL [id number] 12/11/22 08:55 DL Document 12/13/22 09:45 BMF [id number] 12/13/22 11:12 BMF Document 12/18/22 08:49 BMF [id number] 12/18/22 08:51 BMF 12/04/22 12/11/22 12/13/22 10:59 08:53 09:45 Wound Care Center Nurse 3 #1 left medial ankle -Ulcer Cleansing Rinsed/ Rinsed/ Soap and Water Irrigated with Irrigated with Saline Saline -Foul Odor after Cleansing No No No -Negative Pressure Wound Therapy N/A -Primary Dressing Applied Optilok 6.5x10, Optilok 6.5x10, Promogran Promogran -Other Dressing promogran; abd -Primary Dressing Covered/Secured with Dry Gauze & Roll Gauze, Secured with Tape -Other Covering unna boot unna boot -Optilok 6.5x10 1 1 -Promogran 1 1 Left -Lotion applied to leg before No compression wrap -Multi-Layered Wrap Application Unna Boot - Unna Boot - Unna Boot - Left ($) Left ($) Left ($) -Other Treatment Response Procedure Procedure Procedure Tolerated Well Tolerated Well Tolerated Well Vital Signs Temperature (97.8 F-99.1 F) 97.1 F L Temperature Source Temporal Pulse Rate (60-100) 70 Pulse Location Monitor Respiratory Rate (12-18) 16 Respiratory rate source Observation Oxygen Delivery Method Room Air Blood Pressure (90/60-120/80) 143/92 H Blood Pressure Mean 109 Source Monitor Position Sitting Blood Pressure Location Left Arm Pain Scale: 0-10 Numeric Is Patient Pain Free? Yes Yes Yes Teaching: Wound Center Compression Wraps & Stockings -Person Taught Patient, Significant Other -Teaching Method Discussion -Response to teaching Verbalize understanding Control Swelling with Leg Elevation -Person Taught Patient, Significant Other -Teaching Method Discussion -Response to teaching Verbalize understanding Dressing Your Wound -Person Taught Patient, Significant Other -Teaching Method Discussion -Response to teaching Verbalize understanding WC - Visit Discharge Discharge Condition Stable Stable Stable Ambulatory Status Ambulatory Ambulatory Ambulatory Transportation Private Auto Private Auto Private Auto Accompanied by significant , daughter other Medication Reconcilliation completed & No provided to patient/care provider Clinical Summary of Care Provided Yes Notes: Vasc test PT JUST ordered. RETURNED FROM [facility]/VASCULAR AND REPORTED CLOTS. WRITTEN REPORT NOT AVAILABLE IN [employer] [facility] YET. THIS NURSE SPOKE W/ CM. PER DR BROOKS- SPOKE W/ VASC. OK TO APPLY UNNA TO LEFT PREV ORDERED AND HIGH COMPRESSION TUBI TO BE APPLIED TO RLE. PT UPDATED ON ALL. 12/18/22 08:49 Wound Care Center Nurse 3 #1 left medial ankle -Ulcer Cleansing Rinsed/ Irrigated with Saline -Foul Odor after Cleansing No -Negative Pressure Wound Therapy -Primary Dressing Applied -Other Dressing unna boot per ak procurement buyer -Primary Dressing Covered/Secured with -Other Covering -Optilok 6.5x10 -Promogran Left -Lotion applied to leg before compression wrap -Multi-Layered Wrap Application Unna Boot - Left ($) -Other per ak procurement buyer Treatment Response Procedure Tolerated Well Vital Signs Temperature (97.8 F-99.1 F) Temperature Source Pulse Rate (60-100) Pulse Location Respiratory Rate (12-18) Respiratory rate source Oxygen Delivery Method Blood Pressure (90/60-120/80) Blood Pressure Mean Source Position Blood Pressure Location Pain Scale: 0-10 Numeric Is Patient Pain Free? Yes Teaching: Wound Center Compression Wraps & Stockings -Person Taught -Teaching Method -Response to teaching Control Swelling with Leg Elevation -Person Taught -Teaching Method -Response to teaching Dressing Your Wound -Person Taught -Teaching Method -Response to teaching WC - Visit Discharge Discharge Condition Stable Ambulatory Status Ambulatory Transportation Private Auto Accompanied by Medication Reconcilliation completed & provided to patient/care provider Clinical Summary of Care Provided Notes: Lab / Micro Data Result Diagrams: 12/13/22 09:27 Assessment/Plan Assessment/Plan (1) Venous stasis ulcer of ankle with fat layer exposed: CODE(S): I83.003 - Varicose veins of unspecified lower extremity with ulcer of ankle; L97.302 - 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 (2) Chronic venous hypertension w/ulcer and inflammation involv left side: CODE(S): I87.332 - Chronic venous hypertension (idiopathic) with ulcer andinflammation of left lower extremity; L97.929 - Non-pressure chronic ulcer of unspecified part of left lower leg with unspecified severity (3) Chronic venous insufficiency: CODE(S): I87.2 - Venous insufficiency (chronic) (peripheral) (4) Lipodermatosclerosis: CODE(S): I83.10 - Varicose veins of unspecified lower extremity with inflammation (5) Left leg swelling: CODE(S): M79.89 - Other specified soft tissue disorders (6) Leg edema, left: CODE(S): R60.0 - Localized edema (7) Hypertension: CODE(S): I10 - Essential (primary) hypertension (8) Tobacco abuse disorder: CODE(S): Z72.0 - Tobacco use (9) Tobacco abuse counseling: CODE(S): Z71.6 - Tobacco abuse counseling (10) History of seizures: CODE(S): Z87.898 - Personal history of other specified conditions (11) History of hemorrhoidectomy: CODE(S): Z98.890 - Other specified postprocedural states (12) History of hand surgery: CODE(S): Z98.890 - Other specified postprocedural states PLAN: Plan This is a 62-year-old obese male who presented with an ulceration overlying the left medial malleolus. This appears to be related to chronic venous hypertension with inflammation and chronic venous insufficiency. The patient also experiences swelling and edema in his lower extremities, more pronounced atthe end of the day. A lengthy discussion has been undertaken as to the appropriate means of management relative to the patient's chronic venous disease. Leg elevation has been recommended. The patient has been encouraged to sleep on a flat surface at night. His legs are to be at heart level, or higher, both while sleeping and during daytime hours. Prolonged idle sitting with his legs in a dependent position has been discouraged. Activity has been encouraged, with recruitment of the calf and foot muscle pumps. Weight loss hasalso been recommended. We are to continue compression to the left lower extremity by means of an Unna boot, which will be applied twice weekly. We are to use Promogran topically to the ulceration. The patient is to return in 1 week for reassessment. Recent laboratory results from December 13, 2022, have been reviewed, with results as follows: Glucose 97, BUN 20, creatinine 1.23, total protein 7.6, albumin 3.6, calcium 8.9, AST 20, alkaline phosphatase 97, ALT 40, total bilirubin 0.40, cholesterol 175, triglycerides 184, sodium 140, potassium 4.4, chloride 103, HDL 42, LDL 96, VLDL 37. A venous duplex examination recently performed revealed superficial thrombophlebitis involving the right great saphenous vein and an accessory branch. 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 Once again, the patient has been encouraged to elevate his lower extremities, remain active, avoid prolonged idle standing and sitting, and to lose weight. We are to provide the patient an excuse to remain off of work for another 2 weeks. Compression will be implemented by means of an Unna boot to the left lower extremity, which will be changed twice weekly. Promogran will be applied topically to the ulceration. There has been significant improvement within the last several weeks. Because of the finding of superficial thrombophlebitis, thenoninvasive lower extremity arterial study, which have been ordered, was not performed. Nutritional optimization has been recommended. The patient has beenadvised to cease his smoking habit. Given the manifestations related to the patient's chronic venous disease, and findings on his recent venous duplex examination, it is felt that the patient may ultimately be a candidate for endovenous laser ablation of the left great saphenous vein, a matter which has been discussed with the patient and his significant other at the bedside. The patient is to return in 1 week for reassessment. Compression to the right lowerextremity is to be implemented by means of a Tubigrip of 20 to 30 mmHg compression. Total time: 27 minutes 12/18/22 1450 <Electronically signed by Edgar Brooks MD> Cosigner Signature (if applicable): CC: ~ Signed [facility] Work Phone: [phone] History and physical note Author Dr. Brooks [facility] December 11, 2022 10:16am Note Date/Time December 11, 2022 1 0:07am [facility] [address] [place] [address] H&P Exam - Wound Care 12/11/22928 MR#: [id number] Acct: [id number] Name: SUKI ADORNO Rep #:[id number] : 1960 62 From: Edgar Yoder PCP: Dr. Jovanna Diaz MD Status:REG RCR Location: ADDENDUM by Dr. Edgar Brooks MD on 12/11/22 at 1015 Addendum The goal will be for the patient to transition from an Unna boot to graduated compression stockings within the next several weeks so as to facilitate his ability to engage in daily activities and partake of his employment. 12/11/22 1016<Electronically signed by Edgar Brooks MD> Cosigner Signature (if applicable): cc: ~* Signed History of Present Illness Date of Service: 12/11/22 Chief Complaint: Venous stasis ulceration, chronic venous hypertension with inflammation and ulceration, leg swelling, leg edema?left lower extremity History of Wound: This is a 62-year-old obese male who presented with an ulceration overlying the left medial malleolus. According to the patient and his significant-other female friend, the ulceration has been present for more than 2 years. The patient feels as though it is due to a foreign body which became stuck between his boot and skin causing a pressure ulceration. However, from a clinical standpoint, it is much more likely that this is related to chronic venous hypertension and associated venous disease. The patient relates swelling and edema in his lower extremities, which is worse at the end of each day. 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 He also sleeps in a recliner, although he insists that his lower extremities are at heart level, or higher. He is not very active during his time at home, often sitting for prolonged periods. The patient is a smoker,smoking 1 pack of cigarettes per day for many years. Appropriate counseling hasbeen undertaken as to the adverse effects of tobacco use. With respect to his current ulceration, he was initially placed on oral Augmentin in the Emergency Department earlier this month for cellulitis, and has completed a course of doxycycline more recently, as prescribed by his primary care physician. The patient denies a history of deep vein thrombosis. The patient suffers from hypertension and obesity. His BMI is 40.3. The patient's history is negative for myocardial infarction, cerebrovascular accident, diabetes mellitus, pulmonary disease, renal disease, thyroid disease, and hyperlipidemia. [facility] Medical History Chronic venous hypertension w/ulcer and inflammation involv left side Chronic venous insufficiency DVT (deep venous thrombosis) History of cardiovascular stress test History of seizures History of stress test Hypertension Hypertension Left leg swelling Leg edema, left Lipodermatosclerosis Osteoporosis Seizures Tobacco abuse counseling Tobacco abuse disorder Venous stasis ulcer of ankle with fat layer exposed Home Medications amlodipine 5 mg tablet 5 mg PO DAILY #30 tabs 11/19/22 [Rx Last Taken Unknown] doxycycline hyclate 100 mg capsule 100 mg PO BID 12/04/22 [History Last Taken Unknown] furosemide 20 mg tablet 20 mg PO DAILY 12/04/22 [History Last Taken Unknown] ibuprofen 800 mg tablet 800 mg PO BID 12/04/22 [History Last Taken Unknown] Allergy/AdvReac Type Severity Reaction Status Date / Time No Known Allergies Allergy Verified 12/04/22 09:55 Surgical History History of hand surgery History of hemorrhoidectomy History of nasal surgery Hx of hand surgery Social History Smoking Status: Current every day smoker tobacco type: cigarettes substance use type: does not use Vital Signs Vital Signs Vital Signs: 12/11/22 08:03 Temperature 97.2 F L Temperature Source Temporal Pulse Rate 79 Respiratory Rate 16 Blood Pressure 173/106 H Blood Pressure Mean 128 Blood Pressure Source Monitor Blood Pressure Position Sitting Blood Pressure Location Left Arm Oxygen Delivery Method Room Air Weight Weight: 285 lb Body Mass Index (BMI) 40.3 Physical Exam Const alert, oriented x3, no apparent distress and well nourished Constitutional Narrative: The patient is obese. He is friendly and conversant. General Appearance: cooperative, comfortable, well kempt and well developed Orientation / Consciousness: awake, oriented to person, oriented to place and oriented to time Exam Limitations: no limitations HEENT normocephalic, head/scalp atraumatic and hearing grossly normal bilaterally Head and Scalp: normal to inspection, normocephalic and atraumatic External Ear: external ears normal Eyes PERRL and EOMs intact bilaterally General Eye: normal appearance of both eyes Neck full ROM Resp normal respiratory effort, normal air movement, no retractions and no use of accessory muscles Effort and Inspection: able to speak in complete sentences Extremity no calf tenderness General Extremity: Negative for clubbing or cyanosis Skin Wound Narrative: A clustered ulceration is noted overlying the left medial malleolus. There is amoderate amount of bioburden and nonviable tissue present. There is no obvious sign of infection or cellulitis. Mild swelling and edema is noted in the lower extremities bilaterally, though significantly improved over the last week. Hyperpigmentation and lipodermatosclerosis are noted in the gaiter areas bilaterally, more pronounced in the left lower extremity. Ulcer dimensions are documented elsewhere, with a decrease in size since the patient's last appointment. Neuro oriented x3, CN's II-XII intact bilaterally, moves all extremities and no focal motor deficits Sensorium / Orientation: awake, alert, oriented to person, oriented to place andoriented to time Psych Appearance: grossly normal and appropriate Attitude: calm Activity / Motor Behavior: appropriate eye contact Speech: normal speech Mood & Affect: euthymic mood Thought Process: normal thought process Thought Content: normal thought content Attention / Concentration: attention grossly intact Debridement Note Debridement Note Wound debrided: Left medial malleolus, clustered ulceration Laterality: Left Type of Debridement: Excisional debridement Anesthesia Used: 5% Lidocaine Gel and Cetacaine Depth: Down to and including healthy tissue and in the subcutaneous layer Percentage of wound debrided: 100 Instrument Used: 3mm curette Severity: Fat Layer Exposed Amount of bleeding with debridement: Mild Bleeding Controlled with: Compression and gauze Patient tolerated procedure: Patient tolerated procedure well Post-Debridement Measurements and Additional Note: Post-Debridement Measurements/Treatment WC - Nurse 1 - General Ulcer Assessment Start: 12/04/22 09:14 Freq: Status: Active Protocol: MOSES.LOWBRETTT Activity Type Activity Date Activity User E-sign Co-sign Detail Recorded Client Recorded Date Recorded By Document 12/04/22 09:14 MW [id number] 12/04/22 09:37 MW Document 12/11/22 08:03 [facility] [id number] 12/11/22 08:07 BM 12/04/22 12/11/22 09:14 08:03 WC - Today's Visit Information Type of service Initial Visit Follow-up Visit (Physician/EXCHANGE CONSULTANT ) Arrival Mode Ambulatory Ambulatory Transfer Assistance None None Accompanied by significant other Patient Identification Verified (Name & Yes Yes ) Patient Requires Transmission-Based No No Precautions Safety Precautions NA Height and Weight Height 5 ft 10.5 in Weight 285 lb Weight in Pounds 285.0 lbs Body Mass Index (BMI) 40.3 40.3 BMI Classification Obese Obese BSA - Anastacia 2.44 Vital Signs Temperature (97.8 F-99.1 F) 97.0 F L 97.2 F L Temperature Source Temporal Temporal Pulse Rate (60-100) 61 79 Pulse Location Monitor Monitor Respiratory Rate (12-18) 16 16 Respiratory rate source Observation Observation Oxygen Delivery Method Room Air Room Air Blood Pressure (90/60-120/80) 189/112 H 173/106 H Blood Pressure Mean 137 128 Source Monitor Monitor Position Sitting Sitting Blood Pressure Location Right Arm Left Arm Comment pt has been seeing pcp for bp History Since Last Visit- (Skip if this is Patient's initial visit) Have you changed medications since your No last visit? Any new allergies or adverse reactions No Had a fall/change in ADL's that may No increase risk of falls Signs or symptoms of abuse and/or No neglect since last visit Have you been in the hospital since your No last visit? Has dressing in place as prescribed Yes Has compression in place as prescribed Yes Has offloadiing in place as prescribed N/A Experienced any changes in pain level or No management Left Footwear Regular Shoe Regular Shoe Right Footwear Regular Shoe Regular Shoe Pain Scale: 0-10 Numeric Is Patient Pain Free? Yes Yes Lower Extremity Assessment/ Foot Assessment/ Toe Nail Assessment Right -Posterior Tibial Palpable Yes -Posterior Tibial Doppler Multiphasic -Dorsalis Pedis Palpable Yes -Dorsalis Pedis Doppler Multiphasic -Extremity Color Hemosiderin -Hair Growth on Legs No -Hair Growth on Toes No -Temperature of Extremity Warm -Dependent Rubor No -Lipodermatosclerosis No -Other Deformity No -Prior Foot Ulcer No -Charcot Joint No -Prior Amputation No -Thick Yes -Discolored Yes -Deformed No -Improper Length & Hygeine Yes Left -Posterior Tibial Palpable Yes -Posterior Tibial Doppler Multiphasic -Dorsalis Pedis Palpable Yes -Dorsalis Pedis Doppler Multiphasic -Extremity Color Hemosiderin -Hair Growth on Legs No -Hair Growth on Toes No -Temperature of Extremity Warm -Capillary Refill Less than 3 Seconds -Dependent Rubor No -Lipodermatosclerosis No -Other Deformity No -Prior Foot Ulcer No -Charcot Joint No -Prior Amputation No -Thick Yes -Discolored Yes -Deformed No -Improper Length & Hygeine Yes Neuropathy Assessment Feet - Top Side and Bottom <Entered> (a) Communication Assessment Preferred language Malian Department Manager Required No Able to Read Yes Able to Write Yes Communication Tools None Caregiver Communication Skills No Impairment Impairment Right Hearing Abillity Normal Left Hearing Abillity Normal Visual Assistive Devices Glasses Teaching Assessment Preferences Verbal,Written, Audio/Visual, Demonstration Barriers to Learning None Readiness To Learn Excellent Willingness to Engage in Self Management High Activies Readiness to Engage in Self Management High Activities Anxiety Level Calm Cooperation Cooperative Perception Coherent Interest in Health Problem Asks Questions Education Importance Acknowledges Need Does Patient Smoke tobacco or other Yes substances Smoking Status Current every day smoker Is Patient Diabetic No Functional Assessment Recent Decline in Ability to Perform Denies Any Declines Assistive Device With Patient No Culture/Confucianist/Environmental Services Lead Cultural/Confucianist Needs that may affect No Treatment Plan Would you allow our hospital cooker tender to No meet you for the purpose of spiritual/ emotional support? Environmental Services Lead to contact place of sabianist No Teaching: Wound Center *Welcome to the Wound Center -Person Taught Patient -Teaching Method Discussion -Response to teaching Verbalize understanding (a) 1 - + WC - Nurse 1 - General Ulcer Measurement Start: 12/04/22 09:14 Freq: Status: Active Protocol: Activity Type Activity Date Activity User E-sign Co-sign Detail Recorded Client Recorded Date Recorded By Document 12/04/22 09:14 MW [id number] 12/04/22 09:37 MW Document 12/11/22 08:03 [facility] [id number] 12/11/22 08:07 [facility] 12/04/22 12/11/22 09:14 08:03 Wound Center Nurse 1 #1 left medial ankle -Combined with other wound No No -Current Size (cm) - Length 4.5 4.3 -Current Size (cm) - Width 5.0 3 -Current Size (cm) - Depth 0.1 0.2 -Total Square Cm 22.50 12.9 -Date of Last Picture (Recall this 12/04/22 12/11/22 field) -Photo Taken Yes Yes -Epithelialization None Present None Present -Tunneling No No -Undermining/Tunneling No No -Circular Undermining No No -Exudate Amt Large Medium -Exudate Type Serosanguineous Serosanguineous -Wound Margin Flat & Intact Distinct, Outline Attached -Granulation Amt None Present (0 Small (1-33%) %) -Granulation Quality N/A -Slough/Fibrin Yes Yes -Necrosis Amt Large (67-100%) Large (67-100%) -Necrotic Tissue Type Adherent Slough -Structure Exposed N/A -Texture (Glen-wound Skin Appearance) Assessed, Assessed, Localized Edema Scarring -Moisture (Glen-wound Skin Appearance) No Abnormality, Assessed,Dry/ Assessed Scaly -Color (Glen-wound Skin Appearance) Assessed, Assessed, Hemosiderin Hemosiderin Staining Staining -Temperature (Glen-wound Skin No Abnormality No Abnormality Appearance) (Pt Warm) (Pt Warm) -Tenderness on Palpation (Glen-wound No No Skin Appearance) -Ulcer Cleansing Rinsed/ Soap and Water Irrigated with Saline -Foul Odor after Cleansing No No -Anesthetic Used 5% Lidocaine 5% Lidocaine Gel Gel Lower Limb Edema Present Yes Yes Right Calf (cm) 44.5 42 Right Ankle (cm) 29.0 26.6 Left Calf (cm) 48.5 43 Left Ankle (cm) 30.5 27.6 WC - Nurse 2 - General Ulcer CM Notes Start: 12/04/22 09:14 Freq: Status: Active Protocol: Activity Type Activity Date Activity User E-sign Co-sign Detail Recorded Client Recorded Date Recorded By Document 12/04/22 11:34 PL [id number] 12/04/22 11:36 PL 12/04/22 11:34 Wound Center Nurse 2 #1 left medial ankle -Time 10:03 -Correct Patient Yes -Correct Side, Site, Position Yes -Correct Procedure Yes -Procedure Performed Yes -Type of Procedure Debridement -Clinical Debridement Subcutaneous -Tissue Removed Subcutaneous -Post Debridement (cm) - Length 4.5 -Post Debridement (cm) - Width 5.0 -Post Debridement (cm) - Depth 0.1 -Total Square (Post) (cm) 22.50 -Area of Debridement (cm) - Length 4.5 -Area of Debridement (cm) - Width 5.0 -Total Square (Area) (cm) 22.50 -Tunneling No -Undermining/Tunneling No -Circular Undermining No -Wound/Ulcer Outcome Not Healed -Ulcer Cleansing Rinsed/ Irrigated with Saline -Foul Odor after Cleansing No -Bioengineered Tissue No -Bleeding Controlled with Pressure -Treatment Response Procedure Tolerated Well -Debridement - Subq, 1st 20sq cm Yes -Debridement, SubQ, ea addt'l 20sq cm 1 or part thereof Pain Scale: 0-10 Numeric Is Patient Pain Free? Yes WC - Nurse 3 - General Ulcer D/C NN Start: 12/04/22 09:14 Freq: Status: Active Protocol: Activity Type Activity Date Activity User E-sign Co-sign Detail Recorded Client Recorded Date Recorded By Document 12/04/22 10:59 MW [id number] 12/04/22 11:01 MW Document 12/11/22 08:53 DL [id number] 12/11/22 08:55 DL 12/04/22 12/11/22 10:59 08:53 Wound Care Center Nurse 3 #1 left medial ankle -Ulcer Cleansing Rinsed/ Rinsed/ Irrigated with Irrigated with Saline Saline -Foul Odor after Cleansing No No -Negative Pressure Wound Therapy N/A -Primary Dressing Applied Optilok 6.5x10, Optilok 6.5x10, Promogran Promogran -Primary Dressing Covered/Secured with Dry Gauze & Roll Gauze, Secured with Tape -Other Covering unna boot -Optilok 6.5x10 1 1 -Promogran 1 1 Left -Lotion applied to leg before No compression wrap -Multi-Layered Wrap Application Unna Boot - Unna Boot - Left ($) Left ($) Treatment Response Procedure Procedure Tolerated Well Tolerated Well Pain Scale: 0-10 Numeric Is Patient Pain Free? Yes Yes Teaching: Wound Center Compression Wraps & Stockings -Person Taught Patient, Significant Other -Teaching Method Discussion -Response to teaching Verbalize understanding Control Swelling with Leg Elevation -Person Taught Patient, Significant Other -Teaching Method Discussion -Response to teaching Verbalize understanding Dressing Your Wound -Person Taught Patient, Significant Other -Teaching Method Discussion -Response to teaching Verbalize understanding WC - Visit Discharge Discharge Condition Stable Stable Ambulatory Status Ambulatory Ambulatory Transportation Private Auto Private Auto Accompanied by significant other Medication Reconcilliation completed & No provided to patient/care provider Clinical Summary of Care Provided Yes Notes: Vasc test ordered. Assessment/Plan Assessment/Plan (1) Venous stasis ulcer of ankle with fat layer exposed: CODE(S): I83.003 - Varicose veins of unspecified lower extremity with ulcer of ankle; L97.302 - 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 (2) Chronic venous hypertension w/ulcer and inflammation involv left side: CODE(S): I87.332 - Chronic venous hypertension (idiopathic) with ulcer andinflammation of left lower extremity; L97.929 - Non-pressure chronic ulcer of unspecified part of left lower leg with unspecified severity (3) Chronic venous insufficiency: CODE(S): I87.2 - Venous insufficiency (chronic) (peripheral) (4) Lipodermatosclerosis: CODE(S): I83.10 - Varicose veins of unspecified lower extremity with inflammation (5) Left leg swelling: CODE(S): M79.89 - Other specified soft tissue disorders (6) Leg edema, left: CODE(S): R60.0 - Localized edema (7) Hypertension: CODE(S): I10 - Essential (primary) hypertension (8) Tobacco abuse disorder: CODE(S): Z72.0 - Tobacco use (9) Tobacco abuse counseling: CODE(S): Z71.6 - Tobacco abuse counseling (10) History of seizures: CODE(S): Z87.898 - Personal history of other specified conditions (11) History of hemorrhoidectomy: CODE(S): Z98.890 - Other specified postprocedural states (12) History of hand surgery: CODE(S): Z98.890 - Other specified postprocedural states PLAN: Plan This is a 62-year-old obese male who presented with an ulceration overlying the left medial malleolus. This appears to be related to chronic venous hypertension with inflammation and chronic venous insufficiency. The patient also experiences swelling and edema in his lower extremities, more pronounced atthe end of the day. A lengthy discussion has been undertaken as to the appropriate means of management relative to the patient's chronic venous disease. Leg elevation has been recommended. The patient has been encouraged to sleep on a flat surface at night. His legs are to be at heart level, or higher, both while sleeping and during daytime hours. Prolonged idle sitting with his legs in a dependent position has been discouraged. Activity has been encouraged, with recruitment of the calf and foot muscle pumps. Weight loss hasalso been recommended. We are to continue compression to the left lower extremity by means of an Unna boot, which will be applied twice weekly. We are to use Promogran topically to the ulceration. The patient is to return in 1 week for reassessment. Recent laboratory results from November 19, 2022, have been reviewed, with results as follows: White blood count 7.4, hemoglobin 17.3, hematocrit 49.8, platelets 215,000, sodium 137, potassium 4.0, chloride 106, creatinine 0.99, BUN 18, glucose 90, calcium 8.6. A venous duplex examination performed on November 19, 2022, was negative for evidence of deep vein thrombosis. An x-ray on that date revealed no evidence of osteomyelitis of the ankle. We are to obtain a complete venous duplex ultrasound examination, assessing the valvular competence in the deep and superficial venous systems. We will also obtain a noninvasive lower extremity arterial study. Nutritional optimization has been recommended. The patient has been advised to cease his smoking habit. Finally, patient's blood pressure has been noted to be extremely high. This matter has been discussed with the patient at the bedside, with explanation as to the potential hazards of untreated hypertension. The patient has been strongly encouraged to follow-up without delay with his primary care physician. Total time: 29 minutes 12/11/22 1007 <Electronically signed by Edgar Brooks MD> Cosigner Signature (if applicable): CC: ~ Signed [facility] Work Phone: [phone] History and physical note Author Dr. Brooks [facility] December 04, 2022 2:55pm Note Date/Time December 04, 2022 2 :33pm [facility] [address] [place] [address] H&P Exam - Wound Care 12/04/22 1429 MR#: [id number] Acct: [id number] Name: SUKI ADORNO Rep #:[id number] : 1960 62 From: Edgar Yoder PCP: Dr. Jovanna Diaz MD Status:REG RCR Location: History of Present Illness Date of Service: 12/04/22 Chief Complaint: Venous stasis ulceration, chronic venous hypertension with inflammation and ulceration, leg swelling, leg edema?left lower extremity History of Wound: This is a 62-year-old obese male who presents with an ulceration overlying the left medial malleolus. According to the patient and his significant-other, female friend the ulceration has been present for more than 2 years. The patient feels as though it is due to a foreign body which became stuck between his boot and skin causing a pressure ulceration. However, from a clinical standpoint, it is much more likely that this is related to chronic venous hypertension and associated venous disease. The patient relates swelling and edema in his lower extremities, which is worse at the end of each day. 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 He also sleeps in a recliner, although he insists that his lower extremities are at heart level, or higher. He is not very active during his time at home, often sitting for prolonged periods. The patient is a smoker,smoking 1 pack of cigarettes per day for many years. Appropriate counseling hasbeen undertaken as to the adverse effects of tobacco use. With respect to his current ulceration, he was initially placed on oral Augmentin in the Emergency Department earlier this month for cellulitis, and is currently taking a prescription for doxycycline, as prescribed by his primary care physician. The patient denies a history of deep vein thrombosis. The patient suffers from hypertension and obesity. His BMI is 40.3. Patient's history is negative for myocardial infarction, cerebrovascular accident, diabetes mellitus, pulmonary disease, renal disease, thyroid disease, and hyperlipidemia. [facility] Medical History Chronic venous hypertension w/ulcer and inflammation involv left side Chronic venous insufficiency DVT (deep venous thrombosis) History of cardiovascular stress test History of seizures History of stress test Hypertension Hypertension Left leg swelling Leg edema, left Lipodermatosclerosis Osteoporosis Seizures Tobacco abuse counseling Tobacco abuse disorder Venous stasis ulcer of ankle with fat layer exposed Home Medications amlodipine 5 mg tablet 5 mg PO DAILY #30 tabs 11/19/22 [Rx Last Taken Unknown] doxycycline hyclate 100 mg capsule 100 mg PO BID 12/04/22 [History Last Taken Unknown] furosemide 20 mg tablet 20 mg PO DAILY 12/04/22 [History Last Taken Unknown] ibuprofen 800 mg tablet 800 mg PO BID 12/04/22 [History Last Taken Unknown] Allergy/AdvReac Type Severity Reaction Status Date / Time No Known Allergies Allergy Verified 12/04/22 09:55 Surgical History History of hand surgery History of hemorrhoidectomy History of nasal surgery Hx of hand surgery Social History Smoking Status: Current every day smoker tobacco type: cigarettes substance use type: does not use Vital Signs Vital Signs Vital Signs: 12/04/22 09:14 Temperature 97.0 F L Temperature Source Temporal Pulse Rate 61 Respiratory Rate 16 Blood Pressure 189/112 H Blood Pressure Mean 137 Blood Pressure Source Monitor Blood Pressure Position Sitting Blood Pressure Location Right Arm Oxygen Delivery Method Room Air Weight Weight: 285 lb Body Mass Index (BMI) 40.3 Physical Exam Const alert, oriented x3, no apparent distress and well nourished Constitutional Narrative: The patient is obese. He is friendly and conversant. General Appearance: cooperative, comfortable, well kempt and well developed Orientation / Consciousness: awake, oriented to person, oriented to place and oriented to time Exam Limitations: no limitations HEENT normocephalic, head/scalp atraumatic and hearing grossly normal bilaterally Head and Scalp: normal to inspection, normocephalic and atraumatic External Ear: external ears normal Eyes PERRL and EOMs intact bilaterally General Eye: normal appearance of both eyes Neck full ROM Resp normal respiratory effort, normal air movement, no retractions and no use of accessory muscles Effort and Inspection: able to speak in complete sentences Extremity no calf tenderness General Extremity: Negative for clubbing or cyanosis Skin Wound Narrative: A clustered ulceration is noted overlying the left medial malleolus. There is alarge amount of bioburden and nonviable tissue present. There is no obvious sign of infection or cellulitis. Mild swelling and edema is noted in the lower extremities bilaterally. Hyperpigmentation and lipodermatosclerosis are noted in the gaiter areas bilaterally, more pronounced in the left lower extremity. Ulcer dimensions are documented elsewhere. Neuro oriented x3, CN's II-XII intact bilaterally, moves all extremities and no focal motor deficits Sensorium / Orientation: awake, alert, oriented to person, oriented to place andoriented to time Psych Appearance: grossly normal and appropriate Attitude: calm Activity / Motor Behavior: appropriate eye contact Speech: normal speech Mood & Affect: euthymic mood Thought Process: normal thought process Thought Content: normal thought content Attention / Concentration: attention grossly intact Debridement Note Debridement Note Wound debrided: Left medial malleolus, clustered ulceration Laterality: Left Type of Debridement: Excisional debridement Anesthesia Used: 5% Lidocaine Gel and Cetacaine Depth: Down to and including healthy tissue and in the subcutaneous layer Percentage of wound debrided: 100 Instrument Used: 3mm curette Severity: Fat Layer Exposed Amount of bleeding with debridement: Mild Bleeding Controlled with: Compression and gauze Patient tolerated procedure: Patient tolerated procedure well Post-Debridement Measurements and Additional Note: Post-Debridement Measurements/Treatment - Nurse 1 - General Ulcer Assessment Start: 12/04/22 09:14 Freq: Status: Active Protocol: MOSES.LOWEXT Activity Type Activity Date Activity User E-sign Co-sign Detail Recorded Client Recorded Date Recorded By Document 12/04/22 09:14 MW [id number] 12/04/22 09:37 MW 12/04/22 09:14 - Today's Visit Information Type of service Initial Visit Arrival Mode Ambulatory Transfer Assistance None Accompanied by significant other Patient Identification Verified (Name & Yes ) Patient Requires Transmission-Based No Precautions Safety Precautions NA Height and Weight Height 5 ft 10.5 in Weight 285 lb Weight in Pounds 285.0 lbs Body Mass Index (BMI) 40.3 BMI Classification Obese BSA - Anastacia 2.44 Vital Signs Temperature (97.8 F-99.1 F) 97.0 F L Temperature Source Temporal Pulse Rate (60-100) 61 Pulse Location Monitor Respiratory Rate (12-18) 16 Respiratory rate source Observation Oxygen Delivery Method Room Air Blood Pressure (90/60-120/80) 189/112 H Blood Pressure Mean 137 Source Monitor Position Sitting Blood Pressure Location Right Arm History Since Last Visit- (Skip if this is Patient's initial visit) Left Footwear Regular Shoe Right Footwear Regular Shoe Pain Scale: 0-10 Numeric Is Patient Pain Free? Yes Lower Extremity Assessment/ Foot Assessment/ Toe Nail Assessment Right -Posterior Tibial Palpable Yes -Posterior Tibial Doppler Multiphasic -Dorsalis Pedis Palpable Yes -Dorsalis Pedis Doppler Multiphasic -Extremity Color Hemosiderin -Hair Growth on Legs No -Hair Growth on Toes No -Temperature of Extremity Warm -Dependent Rubor No -Lipodermatosclerosis No -Other Deformity No -Prior Foot Ulcer No -Charcot Joint No -Prior Amputation No -Thick Yes -Discolored Yes -Deformed No -Improper Length & Hygeine Yes Left -Posterior Tibial Palpable Yes -Posterior Tibial Doppler Multiphasic -Dorsalis Pedis Palpable Yes -Dorsalis Pedis Doppler Multiphasic -Extremity Color Hemosiderin -Hair Growth on Legs No -Hair Growth on Toes No -Temperature of Extremity Warm -Capillary Refill Less than 3 Seconds -Dependent Rubor No -Lipodermatosclerosis No -Other Deformity No -Prior Foot Ulcer No -Charcot Joint No -Prior Amputation No -Thick Yes -Discolored Yes -Deformed No -Improper Length & Hygeine Yes Neuropathy Assessment Feet - Top Side and Bottom <Entered> (a) Communication Assessment Preferred language Malian Department Manager Required No Able to Read Yes Able to Write Yes Communication Tools None Caregiver Communication Skills No Impairment Impairment Right Hearing Abillity Normal Left Hearing Abillity Normal Visual Assistive Devices Glasses Teaching Assessment Preferences Verbal,Written, Audio/Visual, Demonstration Barriers to Learning None Readiness To Learn Excellent Willingness to Engage in Self Management High Activies Readiness to Engage in Self Management High Activities Anxiety Level Calm Cooperation Cooperative Perception Coherent Interest in Health Problem Asks Questions Education Importance Acknowledges Need Does Patient Smoke tobacco or other Yes substances Smoking Status Current every day smoker Is Patient Diabetic No Functional Assessment Recent Decline in Ability to Perform Denies Any Declines Assistive Device With Patient No Culture/Confucianist/Environmental Services Lead Cultural/Confucianist Needs that may affect No Treatment Plan Would you allow our hospital cooker tender to No meet you for the purpose of spiritual/ emotional support? Environmental Services Lead to contact place of sabianist No Teaching: Wound Center *Welcome to the Wound Center -Person Taught Patient -Teaching Method Discussion -Response to teaching Verbalize understanding (a) 1 - + WC - Nurse 1 - General Ulcer Measurement Start: 12/04/22 09:14 Freq: Status: Active Protocol: Activity Type Activity Date Activity User E-sign Co-sign Detail Recorded Client Recorded Date Recorded By Document 12/04/22 09:14 MW [id number] 12/04/22 09:37 MW 12/04/22 09:14 Wound Center Nurse 1 #1 left medial ankle -Combined with other wound No -Current Size (cm) - Length 4.5 -Current Size (cm) - Width 5.0 -Current Size (cm) - Depth 0.1 -Total Square Cm 22.50 -Date of Last Picture (Recall this 12/04/22 field) -Photo Taken Yes -Epithelialization None Present -Tunneling No -Undermining/Tunneling No -Circular Undermining No -Exudate Amt Large -Exudate Type Serosanguineous -Wound Margin Flat & Intact -Granulation Amt None Present (0 %) -Granulation Quality N/A -Slough/Fibrin Yes -Necrosis Amt Large (67-100%) -Structure Exposed N/A -Texture (Glen-wound Skin Appearance) Assessed, Localized Edema -Moisture (Glen-wound Skin Appearance) No Abnormality, Assessed -Color (Glen-wound Skin Appearance) Assessed, Hemosiderin Staining -Temperature (Glen-wound Skin No Abnormality Appearance) (Pt Warm) -Tenderness on Palpation (Glen-wound No Skin Appearance) -Ulcer Cleansing Rinsed/ Irrigated with Saline -Foul Odor after Cleansing No -Anesthetic Used 5% Lidocaine Gel Lower Limb Edema Present Yes Right Calf (cm) 44.5 Right Ankle (cm) 29.0 Left Calf (cm) 48.5 Left Ankle (cm) 30.5 WC - Nurse 2 - General Ulcer CM Notes Start: 12/04/22 09:14 Freq: Status: Active Protocol: Activity Type Activity Date Activity User E-sign Co-sign Detail Recorded Client Recorded Date Recorded By Document 12/04/22 11:34 PL [id number] 12/04/22 11:36 PL 12/04/22 11:34 Wound Center Nurse 2 #1 left medial ankle -Time 10:03 -Correct Patient Yes -Correct Side, Site, Position Yes -Correct Procedure Yes -Procedure Performed Yes -Type of Procedure Debridement -Clinical Debridement Subcutaneous -Tissue Removed Subcutaneous -Post Debridement (cm) - Length 4.5 -Post Debridement (cm) - Width 5.0 -Post Debridement (cm) - Depth 0.1 -Total Square (Post) (cm) 22.50 -Area of Debridement (cm) - Length 4.5 -Area of Debridement (cm) - Width 5.0 -Total Square (Area) (cm) 22.50 -Tunneling No -Undermining/Tunneling No -Circular Undermining No -Wound/Ulcer Outcome Not Healed -Ulcer Cleansing Rinsed/ Irrigated with Saline -Foul Odor after Cleansing No -Bioengineered Tissue No -Bleeding Controlled with Pressure -Treatment Response Procedure Tolerated Well -Debridement - Subq, 1st 20sq cm Yes -Debridement, SubQ, ea addt'l 20sq cm 1 or part thereof Pain Scale: 0-10 Numeric Is Patient Pain Free? Yes WC - Nurse 3 - General Ulcer D/C NN Start: 12/04/22 09:14 Freq: Status: Active Protocol: Activity Type Activity Date Activity User E-sign Co-sign Detail Recorded Client Recorded Date Recorded By Document 12/04/22 10:59 MW [id number] 12/04/22 11:01 MW 12/04/22 10:59 Wound Care Nurse 3 #1 left medial ankle -Ulcer Cleansing Rinsed/ Irrigated with Saline -Foul Odor after Cleansing No -Negative Pressure Wound Therapy N/A -Primary Dressing Applied Optilok 6.5x10, Promogran -Primary Dressing Covered/Secured with Dry Gauze & Roll Gauze, Secured with Tape -Other Covering unna boot -Optilok 6.5x10 1 -Promogran 1 Left -Lotion applied to leg before No compression wrap -Multi-Layered Wrap Application Unna Boot - Left ($) Treatment Response Procedure Tolerated Well Pain Scale: 0-10 Numeric Is Patient Pain Free? Yes Teaching: Wound Center Compression Wraps & Stockings -Person Taught Patient, Significant Other -Teaching Method Discussion -Response to teaching Verbalize understanding Control Swelling with Leg Elevation -Person Taught Patient, Significant Other -Teaching Method Discussion -Response to teaching Verbalize understanding Dressing Your Wound -Person Taught Patient, Significant Other -Teaching Method Discussion -Response to teaching Verbalize understanding WC - Visit Discharge Discharge Condition Stable Ambulatory Status Ambulatory Transportation Private Auto Accompanied by significant other Medication Reconcilliation completed & No provided to patient/care provider Clinical Summary of Care Provided Yes Assessment/Plan Assessment/Plan (1) Venous stasis ulcer of ankle with fat layer exposed: CODE(S): I83.003 - Varicose veins of unspecified lower extremity with ulcer of ankle; L97.302 - 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 (2) Chronic venous hypertension w/ulcer and inflammation involv left side: CODE(S): I87.332 - Chronic venous hypertension (idiopathic) with ulcer andinflammation of left lower extremity; L97.929 - Non-pressure chronic ulcer of unspecified part of left lower leg with unspecified severity (3) Chronic venous insufficiency: CODE(S): I87.2 - Venous insufficiency (chronic) (peripheral) (4) Lipodermatosclerosis: CODE(S): I83.10 - Varicose veins of unspecified lower extremity with inflammation (5) Left leg swelling: CODE(S): M79.89 - Other specified soft tissue disorders (6) Leg edema, left: CODE(S): R60.0 - Localized edema (7) Hypertension: CODE(S): I10 - Essential (primary) hypertension (8) Tobacco abuse disorder: CODE(S): Z72.0 - Tobacco use (9) Tobacco abuse counseling: CODE(S): Z71.6 - Tobacco abuse counseling (10) History of seizures: CODE(S): Z87.898 - Personal history of other specified conditions (11) History of hemorrhoidectomy: CODE(S): Z98.890 - Other specified postprocedural states (12) History of hand surgery: CODE(S): Z98.890 - Other specified postprocedural states PLAN: Plan This is a 62-year-old obese male who presents with an ulceration overlying the left medial malleolus. This appears to be related to chronic venous hypertension with inflammation and chronic venous insufficiency. Patient also experiences swelling and edema in his lower extremities, more pronounced at the end of the day. A lengthy discussion has been undertaken as to the appropriate means of management relative to the patient's chronic venous disease. Leg elevation has been recommended. The patient has been encouraged to sleep on a flat surface at night. His legs are to be at heart level, or higher, both whilesleeping and during daytime hours. Prolonged idle sitting with his legs in a dependent position has been discouraged. Activity has been encouraged, with recruitment of the calf and foot muscle pumps. Weight loss has also been recommended. We are to implement compression to the left lower extremity by means of an Unna boot, which will be applied twice weekly. We are to use Promogran topically to the ulceration. Patient is to return in 1 week for reassessment. Recent laboratory results from November 19, 2022, have been reviewed, with results as follows: White blood count 7.4, hemoglobin 17.3, hematocrit 49.8, platelets 215,000, sodium 137, potassium 4.0, chloride 106, creatinine 0.99, BUN 18, glucose 90, calcium 8.6. A venous duplex examination performed on November 19, 2022, was negative for evidence of deep vein thrombosis. An x-ray on that date revealed no evidence of osteomyelitis of the ankle. Nutritional optimization has been recommended. Patient has been advised to cease his smoking habit. Total time: 58 minutes 12/04/22 1455 <Electronically signed by Edgar Brooks MD> Cosigner Signature (if applicable): CC: ~ Signed [facility] Work Phone: 1(310) 646-761905-22-2021 NoteHNO ID: [id number] Author: Audrey Gonzalez MD Service: ? Author Type: Physician Type: Progress Notes Filed: 04/08/2021 9:30 PM Note Text: Suki Adorno 1960 REFERRING PHYSICIAN: [facility]* CHIEF COMPLAINT: No chief complaint on file. HPI: The patient is a 60 year old male is s/p transanal drainage of horseshoe abscess done on 03/20/2021. He states that he feels much improved with regard to pain, however, he notes mucus discharge on his underclothing. He denies noting fecal material. He denies fevers. PAST MEDICAL HISTORY Diagnosis Date - Dysthymic disorder Depression (non-psychotic) - Perirectal abscess 03/2021 - Unspecified essential hypertension Essential hypertension PAST SURGICAL HISTORY Procedure Laterality Date - I/D ISCHIO/GLEN-RECTAL ABSCESS 03/20/2021 - PAST SURGICAL HISTORY OF wisdom tooth removed - PAST SURGICAL HISTORY OF right hand-middle finger - PAST SURGICAL HISTORY OF truong. foot surgery as child - VASECTOMY 07/09/2003 Current Outpatient Medications Medication Sig - clindamycin 300 mg capsule Take 1 capsule by mouth three times daily. ALLERGIES: Penicillin G PERSONAL HISTORY: Social History Tobacco Use - Smoking status: Current Every Day Smoker - Smokeless tobacco: Never Used - Tobacco comment: smokes 3 cigarettes per day Substance Use Topics - Alcohol use: No - Drug use: No Comment: quit FAMILY HISTORY Problem Relation Age of Onset - Cancer Mother lung - Diabetes Father - Stroke Father - Cancer Father esophageal - Diabetes Paternal Grandmother - Diabetes Paternal Grandfather REVIEW OF SYSTEMS: Denies fevers PHYSICAL EXAMINATION: General: The patient is 60 year old male, well nourished, well hydrated in no acute distress. The patient is oriented to time, place, and person. VITALS: There were no vitals taken for this visit. There is no height or weight on file to calculate BMI. Head ? Normocephalic. . Neck - supple Lungs ? No labored breathing noted, such as retractions. No cough heard. Abdomen ? soft and benign. Rectal ? fistula opening posteriorly with mucus discharge, no palpable abscess Psych ? anxious but appropriate Assessment IMPRESSION: status post incision and drainage of rectal abscess, now with anal fistula PLAN: I have discussed the above with the patient. I will refer patient to colorectal surgeon as this will be a complex repair given location. The patient acknowledges the above. I have answered all questions to the patient?s satisfaction and the patient has no further questions. . Diagnoses: (K60.3) Anal fistula (primary encounter diagnosis) Return to Clinic: The patient is instructed to follow-up with me as per needed. Audrey Gonzalez [facility]05-03-2021 NoteHNO ID: [id number] Author: Audrey Gonzalez MD Service: ? Author Type: Physician Type: Progress Notes Filed: 03/20/2021 2:03 PM Note Text: HISTORY AND PHYSICAL Suki Adorno 1960 REFERRING PHYSICIAN: Drea Sheppard* CHIEF COMPLAINT: Consult (Perirectal Abscess) HPI: The patient is a 60 year old male presents from [facility] ED with perirectal abscess.. He has had pain in the area for the past 6 days. No such previous history of pain. He does admit to chronic constipation and straining with bowel movements. He states that the area is very tender to touch and thus examination is suboptimal. He denies fevers. He denies diabetes. He admits to cigarettes use. His BMI > 30. PAST MEDICAL HISTORY Diagnosis Date - Dysthymic disorder Depression (non-psychotic) - Perirectal abscess 03/2021 - Unspecified essential hypertension Essential hypertension PAST SURGICAL HISTORY Procedure Laterality Date - PAST SURGICAL HISTORY OF wisdom tooth removed - PAST SURGICAL HISTORY OF right hand-middle finger - PAST SURGICAL HISTORY OF truong. foot surgery as child - VASECTOMY 07/09/2003 Current Outpatient Medications Medication Sig - clindamycin 300 mg capsule Take 1 capsule by mouth three times daily. ALLERGIES: Penicillin G PERSONAL HISTORY: Social History Tobacco Use - Smoking status: Current Every Day Smoker - Smokeless tobacco: Never Used - Tobacco comment: smokes 3 cigarettes per day Substance Use Topics - Alcohol use: No - Drug use: No Comment: quit FAMILY HISTORY Problem Relation Age of Onset - Cancer Mother lung - Diabetes Father - Stroke Father - Cancer Father esophageal - Diabetes Paternal Grandmother - Diabetes Paternal Grandfather The review of systems data was entered by the nurse and reviewed by nd Nursing Notes: Yaima Jo LPN 03/20/2021 1:30 PM Signed REVIEW OF SYSTEMS: General: The patient denies fatigue, denies weight loss, denies weight gain, denies feeling hot, and denies feelings of cold. Eyes: The patient denies glaucoma, denies eye injury/surgery, wears glasses or contacts. Ear/Nose/Throat: The patient NOTES allergies, denies hayfever, denies ear infections, and denies bloody noses. Cardiovascular: The patient denies chest pain, denies heart disease, NOTES high blood pressure,denies cardiac stent, NOTES prior heart attack, denies irregular heart beat, denies high cholesterol, denies poor circulation, denies heart failure, other cardiac issues, denies claudication, denies cold feet, denies peripheral arterial stent. Respiratory: The patient denies tuberculosis, denies pneumonia, denies frequent cough, denies pulmonary embolism, denies shortness of breath, and denies coughing up blood. Gastrointestinal: The patient denies difficulty swallowing, denies acid reflux, denies ulcers, denies vomiting, denies jaundice/hepatitis, denies gallbladder problems, denies black or tarry stools, NOTES hemorrhoids, denies bleeding from rectum, denies diverticulitis, NOTES constipation, denies diarrhea, denies loss of stool control, and denies hernias. Kidney/Bladder: The patient denies kidney stones, denies urine infections, and denies bloody urine. Skin: The patient denies a history of skin cancer, denies bleeding/changing moles, and denies a history of skin rash. Neurologic: The patient denies a history of epilepsy/convulsions, denies headaches, denies head/spinal injuries, and denies stroke/TIA. Psychiatric: The patient denies psychiatric medications, denies depression, and denies voices, denies substance abuse. Endocrine: The patient denies thyroid disorders, denies diabetes, and denies hormonal problems. Hematologic: The patient denies a history of bruising, denies bleeding, and denies anemia, NOTES blood clots. Infections: The patient denies a history of measles and mumps, denies rheumatic fever, and denies sexually transmitted diseases. Musculoskeletal: The patient denies back pain/injury, denies back problems, denies sciatica, denies knee/foot trouble, NOTES arthritis, or denies gout. When was patient's last Mammogram screening? N/A Last Colonoscopy: Unknown [facility] PHYSICAL EXAMINATION: General: The patient is 60 year old male, well nourished, well hydrated in obvious pain. The patient is oriented to time, place, and person. VITALS: Blood pressure 164/88, pulse 79, temperature 36.2 ?C (97.2 ?F), height 182.9 cm (6'), weight 116.1 kg (256 lb), SpO2 94 %. Body mass index is 34.72 kg/m?. Head ? Normocephalic. EOM intact with sclera clear and no icterus noted. Neck - supple with no jugular venous distention noted. Trachea is midline. Lungs ? clear to auscultation. Normal breath sounds. No rales/rhonchi/wheezing noted. No labored breathing noted, such as retractions. No cough heard. Heart ? normal S1 and S2 auscultated. No rubs/clicks/murmurs noted. Regular rate. Abdomen ? soft an (more content not included)...[facility] Discharge summary Author Blake Andrea [facility] Note Date/Time March 04, 2025 12: 49pm [facility] Medical Records Department [address] [place] [address] Emergency Department Summary 03/04/25 MR#: [id number] Acct: [id number] Name: SUKI ADORNO Rep #:[id number] : 1960 64 From: Blake Andrea MD PCP: Dr. Kelsey Jacobs MD Status:REG ER Location: ED HPI History of Present Illness Chief Complaint: Chest Pain Detail of Chief Complaint: Acute shortness of breath with heaviness xiphoid region Informant: patient Onset/Context/Timing Onset: Today and Hours Context: Sudden Onset Timing: Continuous Quality: Discomfort heaviness Location: Xiphoid region Current Severity: Mild Maximum Severity: Moderate Worsened by: Nothing Relieved by: Nothing Associated Symptoms Associated Symptoms: Dyspnea Narrative Narrative: Patient is a 64-year-old man who is a former smoker. He was diagnosed November of this year with a saddle pulmonary embolus with elevated troponin and BNP. Hepresents with abrupt onset of shortness of breath and discomfort in the xiphoid region. This is similar to when he had a pulmonary embolus. He does have history of hypertension on lisinopril and amlodipine. He is on apixaban 5 mg. He has not missed any doses. He does complain of some discomfort left leg. Thediscomfort is anterior. He has chronic swelling. There is no history of trauma. He denies history of peptic ulcer disease, hiatal hernia or reflux. Hedenies black or maroon-colored stool. He has no intolerance to greasy food. Patient has no other symptoms. Prior similar symptoms: Yes Recent Illness/Hospitalization: No PFSH PFS Medical History Acute saddle pulmonary embolism COVID Tinnitus Marijuana use Thrombosis Wears glasses Depression Alcohol use Arthritis Prostate disease Restless legs Migraine headache Smoker BiPAP (biphasic positive airway pressure) dependence Shortness of breath on exertion History of stress test Hypertension Hx of hypoglycemia Hx of migraines Hx of seasonal allergies Lipodermatosclerosis Venous stasis ulcer of ankle with fat layer exposed Chronic venous hypertension w/ulcer and inflammation involv left side Chronic venous insufficiency Seizures Home Medications ?Medication ?Instructions ?Recorded ?Last Taken ?Type blood pressure monitor #1 ea 12/12/22 Unknown Rx amlodipine 5 mg tablet See Rx Instructions .Route 0 12/10/24 03/03/25 Rx .COMPLEX #90 tabs escitalopram oxalate 10 mg tablet 10 mg PO DAILY #90 t abs 12/10/24 03/04/25 Rx (Lexapro) tamsulosin 0.4 mg capsule (Flomax) 0.4 mg PO QHS #90 c aps 12/10/24 03/03/25 Rx apixaban 5 mg tablet (Eliquis) 5 mg PO BID #60 tabs 03/04/25 Rx lisinopril 20 1 tab PO DAILY 03/04/2502/16 History mg-hydrochlorothiazide 12.5 mg tablet Allergy/AdvReac Type Severity Reaction Status Date / Time Penicillins Allergy Unknown UNKNOWN Verified 03/04/25 09:44 Family History Father Angina at rest Anxiety Diabetes Myocardial infarction Heart disease Hypertension Hyperlipidemia Respiratory disease Cancer esophageal Mother Cancer lung Depression Hormone disorder Seizures Osteoporosis Brother Myocardial infarction Hyperlipidemia Surgical History History of thrombectomy History of incision and drainage H/O foot surgery History of hemorrhoidectomy Hx of hand surgery History of nasal surgery Social History household members: significant other housing: house current occupational status: employed current occupation: [employer] sexually active: Yes Smoking Status: Former smoker quit date: 11/26/24 Electronic Cigarette Use: not used alcohol intake: current alcohol intake frequency: holidays/special occasions only substance use type: former substance user Date of last use: marijuana what type of physical activity do you participate in: walking and additional details: lifting frequency: 5-6 times per week seatbelt use: always do you feel safe at home: Yes ROS ROS ED Constitutional Constitutional ED: Denies chills, fever(s), subjective or sweats Eyes Eyes: Denies blurry vision or change in vision ENT ENT ED: Denies ear pain, rhinorrhea or sore throat Cardiovascular Cardiovascular: Reports chest pain; Denies orthopnea, palpitations, paroxysmal nocturnal dyspnea or racing heartbeat Respiratory/Chest Respiratory/Chest: Reports dyspnea and dyspnea on exertion; Denies cough, orthopnea or paroxysmal nocturnal dyspnea Gastrointestinal Gastrointestinal: Denies abdominal pain, melena, nausea or vomiting Musculoskeletal Musculoskeletal: Denies arthralgias, back pain or myalgias Integumentary Reports rash and other Details: Patient has small wound with erythema mid anterior medial left leg. There is also evidence of venous stasis changes. Neurologic Neurologic: Denies paresthesias or weakness Psychiatric Psychiatric: Denies anxiety Endocrine Endocrinology: Denies cold intolerance or heat intolerance Hematologic/Lymphatic Hematologic/Lymphatic: Reports easy bruising Allergic/Immunologic Allergic/Immunologic ED: Denies mouth swelling or tongue swelling EXAM Physical Exam Const Vital Signs: 03/04/25 09:42 03/04/25 09:46 03/04/25 10:34 Temperature 98.3 F Temperature Source Oral Pulse Rate 62 53 L Respiratory Rate 19 H 14 Respiratory Effort Normal Blood Pressure 128/88 H 115/77 Blood Pressure Mean 101 89 Pulse Ox 94 99 Oxygen Delivery Method Room Air 03/04/25 11:00 03/04/25 12:00 Temperature Temperature Source Pulse Rate 56 L 58 L Respiratory Rate 17 14 Respiratory Effort Blood Pressure 135/88 H 148/88 H Blood Pressure Mean 103 108 Pulse Ox 93 94 Oxygen Delivery Method Positive well nourished and well developed Constitutional Narrative: BMI is 36.9. Vital signs are unremarkable. He is not hypoxic. He was hypoxic when he presented with the saddle pulmonary embolus. General Appearance ED: well developed; Negative for pallor HEENT Reports moist mucous membranes HEENT Narrative: Head is atraumatic normocephalic. Ears normal. Nares patent. Patient is wearing safety glasses. Eyes PERRL and EOMs intact bilaterally General Eye ED: Negative for pale conjunctiva or scleral icterus Neck no lymphadenopathy, supple and no JVD Chest Wall inspection of chest normal and palpation of chest normal Resp normal respiratory effort Cardio regular rate, regular rhythm, S1 normal heart sound, S2 normal heart sound and no murmurs GI normal to inspection, nondistended, normoactive bowel sounds, non-tender, non-distended and no masses; Negative for hepatosplenomegaly GI Narrative: Negative clinical Rhoades sign. Extremity Extremity Narrative: Swelling of both right and left leg. There is a wound medial mid anterior left leg that is slightly tender. There is no tenderness on the distribution deep venous system and there is no palpable cords. There is no venous dilatation. Neuro oriented x3, CN's II-XII intact bilaterally and no sensory deficits noted Sensorium / Orientation: alert Psych mental status grossly normal Skin Skin Narrative: Described under the extremity portion of the EMR. General Skin Exam: elasticity normal; Negative for jaundice or pallor MDM MDM MDM Narrative Medical decision making narrative: Since patient has similar presentation for PE will obtain D-dimer. Troponin wasobtained as well since his troponins were elevated when he had his prior PE. Differential diagnosis would be cardiac versus noncardiac. Noncardiac would include pulmonary embolus, pneumonia, also need to consider GI i.e. reflux, biliary disease. Workup included EKG, chest x-ray appropriate blood work. Chest x-ray was obtained to determine if there is any obvious pulmonary findingsto suggest other causes. Lab Data Attestation: I reviewed the patient's lab results. Lab results narrative: CBC is normal. Comprehensive metabolic panel is unremarkable. BUN BUN/creatinine ratio was elevated at 23-1. Lactate is less than 1. Troponin isnormal at 10. D- dimer apparently was canceled and is being redrawn. Labs: Laboratory Results - last 24 hr 03/04/25 03/04/25 03/04/25 09:47 10:20 11:58 WBC 6.3 RBC 5.46 Hgb 16.3 Hct 47.5 MCV 87.0 MCH 29.9 MCHC 34.3 RDW Std Deviation 39.7 RDW Coeff of Adrian 12.6 Plt Count 229 MPV 10.3 Immature Gran % (Auto) 0.500 Neut % (Auto) 52.8 Lymph % (Auto) 34.1 Craig % (Auto) 8.0 Eos % (Auto) 3.8 Baso % (Auto) 0.8 Absolute Neuts (auto) 3.3 Absolute Lymphs (auto) 2.13 Nucleated RBC % 0 D-Dimer Quant (PE/DVT) Cancelled 0.30 Sodium 137 Potassium 4.3 Chloride 101 Carbon Dioxide 24.9 Anion Gap 11 BUN 28 H Creatinine 1.18 Estim Creat Clear Calc 88.03 Est GFR (MDRD) Non-Af 70 BUN/Creatinine Ratio 23.6 H Glucose 96 Lactic Acid < 1.0 Calcium 9.1 Total Bilirubin 0.40 AST 23 ALT 19 Alkaline Phosphatase 85 Troponin T High Sens 10 Troponin T Hi Sens 2 Hr 12 Total Protein 7.4 Albumin 4.4 Globulin 3.1 Albumin/Globulin Ratio 1.4 D-dimer is normal. Lactate is normal. Awaiting results of t repeat troponin. Initial was 10, which is normal second troponin is 12 with a delta of 2. This is negative. Therefore will discharge to home. Radiography Chest X-Ray - ED: 2 View, Read by ED Physician (Review interpreted by me at 1041. There are some minimal chronic changes. Cardiac silhouette size normal. Lung parenchyma is unremarkable. No effusion, infiltrate cephalization. There is no Insa pneumothorax. Osseous structures reveal mild degenerative changes inthe mid dorsal vertebral jez) and No Acute Disease (Unchanged from November chest x-ray.) Diagnostic Testing: Clinical Impression(s) from Imaging Studies Chest X-Ray 03/04/25 10:28 IMPRESSION: NO ACUTE FINDINGS. Reading Location: [facility] Rhythm Strip Rhythm Strip: Bradycardia Rate: 52 Ectopy: None EKG Initial EKG: Attestation: I personally reviewed and interpreted this EKG as follows: Interpretation: Sinus Bradycardia (Rate is 59. DE intervals 170 ms Rickers duration 78 ms. QT duration 120 ms. Voltage is decreased. Computer isreading possible inferior infarct. The morphology of the QRS complex and ST segment is unchanged from November 25, 2024. The amplitude is slightly less today.) Prior: Unchanged (November 25, 2024) Treatment and Re-Evaluation :: Patient was informed of results. Plan is to discharge to home Discharge Plan Triage Chief Complaint: Chest Pain ED Provider: Blake Andrea Dx/Rx/DC Orders Clinical Impression: Chest discomfort, Chronic venous insufficiency, Acute dyspnea, Hx of pulmonary embolus, Anticoagulant long-term use Instructions: ED Chest Pain, Uncertain Cause Prescriptions: No Action (DME) blood pressure monitor Kit See Rx Instructions .Route Qty: 1 0RF Rx Instructions: As directed amlodipine 5 mg tablet See Rx Instructions .ROUTE .COMPLEX Qty: 90 1RF Dose Instruction: TAKE 1 TABLET BY MOUTH AT BEDTIME Rx Instructions: TAKE 1 TABLET BY MOUTH AT BEDTIME escitalopram oxalate [Lexapro] 10 mg tablet 10 mg PO DAILY Qty: 90 1RF tamsulosin [Flomax] 0.4 mg capsule 0.4 mg PO QHS Qty: 90 1RF lisinopril-hydrochlorothiazide 20-12.5 mg tablet 1 tab PO DAILY Eliquis 5 mg tablet 5 mg PO BID Qty: 60 2RF Primary Care Provider: Kelsey Jacobs Referrals: Kelsey Jacobs MD [Primary Care Provider] - 3-5 Days Print Language: Malian Disposition Disposition: Home, Self Care What to do if you have Problems For any increased pain, shortness of breath, bleeding, nausea or vomiting, chestpain, or any unexpected problems, contact your Primary Care Provider. Call [facility] ([phone]) or report to the closest Emergency Room. Call 911 if necessary. 03/04/25 1249 <Electronically signed by Blake Andrea MD> Cosigner Signature (if applicable): CC: Dr. Kelsey Jacobs MD ~ Signed [facility] Work Phone: Evaluation noteNo assessment information available [facility] Work Phone: Evaluation note* Diagnosis Onset Date Resolution Status Moderately severe depression acute Chronic venous hypertension w/ulcer and inflammation involv left side chronic Immunization declined noneac tive Screening for colon cancer n oneactive Mild anxiety noneactive Establishing care with new doctor, encounter for noneactive Rash and nonspecific skin eruption noneactive Suspected sleep apnea noneac tive Essential hypertension nonea ctive Smoker noneactive Lipodermatosclerosis acute Tobacco abuse disorder acute Venous stasis ulcer of ankle with fat layer exposed acute Chronic venous hypertension w/ulcer and inflammation involv left side chronic Chronic venous insufficiency chronic Hypertension chronic History of hand surgery reso lved History of hemorrhoidectomy resolved History of seizures resolved Tobacco abuse counseling res olved [facility] Work Phone: Evaluation note* Diagnosis Onset Date Resolution Status Moderately severe depression acute Chronic venous hypertension w/ulcer and inflammation involv left side chronic Immunization declined noneac tive Screening for colon cancer n oneactive Mild anxiety noneactive Establishing care with new doctor, encounter for noneactive Rash and nonspecific skin eruption noneactive Suspected sleep apnea noneac tive Essential hypertension nonea ctive Smoker noneactive Lipodermatosclerosis acute Tobacco abuse disorder acute Venous stasis ulcer of ankle with fat layer exposed acute Chronic venous hypertension w/ulcer and inflammation involv left side chronic Chronic venous insufficiency chronic Hypertension chronic History of hand surgery reso lved History of hemorrhoidectomy resolved History of seizures resolved Tobacco abuse counseling res olved Lipodermatosclerosis acute Tobacco abuse disorder acute Venous stasis ulcer of ankle with fat layer exposed acute Chronic venous hypertension w/ulcer and inflammation involv left side chronic Chronic venous insufficiency chronic Hypertension chronic History of hand surgery reso lved History of hemorrhoidectomy resolved History of seizures resolved Tobacco abuse counseling [facility] Work Phone: Evaluation note* Diagnosis Onset Date Resolution Status Moderately severe depression acute Chronic venous hypertension w/ulcer and inflammation involv left side chronic Immunization declined noneac tive Screening for colon cancer n oneactive Mild anxiety noneactive Establishing care with new doctor, encounter for noneactive Rash and nonspecific skin eruption noneactive Suspected sleep apnea noneac tive Essential hypertension nonea ctive Smoker noneactive Lipodermatosclerosis acute Tobacco abuse disorder acute Venous stasis ulcer of ankle with fat layer exposed acute Chronic venous hypertension w/ulcer and inflammation involv left side chronic Chronic venous insufficiency chronic Hypertension chronic History of hand surgery reso lved History of hemorrhoidectomy resolved History of seizures resolved Tobacco abuse counseling res olved Moderately severe depression acute Chronic venous hypertension w/ulcer and inflammation involv left side chronic Obstructive sleep apnea none active Mild anxiety noneactive Essential hypertension nonea ctive Smoker noneactive Lipodermatosclerosis acute Tobacco abuse disorder acute Venous stasis ulcer of ankle with fat layer exposed acute Chronic venous hypertension w/ulcer and inflammation involv left side chronic Chronic venous insufficiency chronic Hypertension chronic History of hand surgery reso lved History of hemorrhoidectomy resolved History of seizures resolved Tobacco abuse counseling [facility] Work Phone: Evaluation note* Diagnosis Onset Date Resolution Status Moderately severe depression acute Chronic venous hypertension w/ulcer and inflammation involv left side chronic Immunization declined noneac tive Screening for colon cancer n oneactive Mild anxiety noneactive Establishing care with new doctor, encounter for noneactive Rash and nonspecific skin eruption noneactive Suspected sleep apnea noneac tive Essential hypertension nonea ctive Smoker noneactive Lipodermatosclerosis acute Tobacco abuse disorder acute Venous stasis ulcer of ankle with fat layer exposed acute Chronic venous hypertension w/ulcer and inflammation involv left side chronic Chronic venous insufficiency chronic Hypertension chronic History of hand surgery reso lved History of hemorrhoidectomy resolved History of seizures resolved Tobacco abuse counseling res olved Moderately severe depression acute Chronic venous hypertension w/ulcer and inflammation involv left side chronic Obstructive sleep apnea none active Mild anxiety noneactive Essential hypertension nonea ctive Smoker noneactive Lipodermatosclerosis acute Tobacco abuse disorder acute Venous stasis ulcer of ankle with fat layer exposed acute Chronic venous hypertension w/ulcer and inflammation involv left side chronic Chronic venous insufficiency chronic Hypertension chronic History of hand surgery reso lved History of hemorrhoidectomy resolved History of seizures resolved Tobacco abuse counseling res olved Moderately severe depression acute Chronic venous hypertension w/ulcer and inflammation involv left side chronic Obstructive sleep apnea none active Mild anxiety noneactive Viral illness noneactive Essential hypertension nonea ctive Tinnitus noneactive Smoker noneactive Lipodermatosclerosis acute Tobacco abuse disorder acute Venous stasis ulcer of ankle with fat layer exposed acute Chronic venous hypertension w/ulcer and inflammation involv left side chronic Chronic venous insufficiency chronic Hypertension chronic History of hand surgery reso lved History of hemorrhoidectomy resolved History of seizures resolved Tobacco abuse counseling [facility] Work Phone: Evaluation note* Diagnosis Onset Date Resolution Status Moderately severe depression acute Chronic venous hypertension w/ulcer and inflammation involv left side chronic Obstructive sleep apnea none active Mild anxiety noneactive Essential hypertension nonea ctive Smoker noneactive Lipodermatosclerosis acute Tobacco abuse disorder acute Venous stasis ulcer of ankle with fat layer exposed acute Chronic venous hypertension w/ulcer and inflammation involv left side chronic Chronic venous insufficiency chronic Hypertension chronic History of hand surgery reso lved History of hemorrhoidectomy resolved History of seizures resolved Tobacco abuse counseling res olved Moderately severe depression acute Chronic venous hypertension w/ulcer and inflammation involv left side chronic Obstructive sleep apnea none active Mild anxiety noneactive Viral illness noneactive Essential hypertension nonea ctive Tinnitus noneactive Smoker noneactive Lipodermatosclerosis acute Tobacco abuse disorder acute Venous stasis ulcer of ankle with fat layer exposed acute Chronic venous hypertension w/ulcer and inflammation involv left side chronic Chronic venous insufficiency chronic Hypertension chronic History of hand surgery reso lved History of hemorrhoidectomy resolved History of seizures resolved Tobacco abuse counseling res olved Moderately severe depression acute Chronic venous hypertension w/ulcer and inflammation involv left side chronic Obstructive sleep apnea none active Mild anxiety noneactive Erectile dysfunction noneact maru Rash and nonspecific skin eruption noneactive Essential hypertension nonea ctive Urinary dribbling noneactive Cough in adult noneactive Tinnitus noneactive Smoker noneactive [facility] Work Phone: Hospital Discharge instructions Additional Instructions Soft tissue infection called cellulitis of the left lower leg. Tylenol for pain. The antibiotic clindamycin 4 times a day for the next 10 days. Return if getting worse if you feel worse or if the infection is spreading up your leg past her knee. Follow-up with your doctor in the next several days to ensure this is improving instead of getting worse. Elevate your leg to decrease pain and swelling.[facility] Work Phone: Reason for referral (narrative)No reason for referral [facility] available[facility] Work Phone: Summary Purpose Family History No Family History Records Found Relationship Condition Age at Onset Recorded Date/T waqas father Angina at rest Unknown Anxiety Unknown Diabetes mellitus Unknown Myocardial infarction Unknown Cardiac disease Unknown Hypertension Unknown Hyperlipidemia Unknown Disorder of respiratory system Unknown Malignant neoplasm Unknown mother Malignant neoplasm Unknown Depression Unknown Disorder of endocrine system Unknown Seizure Unknown Osteoporosis Unknown brother Myocardial infarction Unknown Advance Directives No Advanced Directives Records Found Advance Directive Response Recorded Date/ Time Living Will No November 19 3 11:09am Power of Manager Style No November 19 023 11:09am Advance Directive Response Recorded Date/ Time Living Will No November 19 3 12:09pm Power of Manager Style No November 19 023 12:09pm Advance Directive Response Recorded Date/ Time Living Will No February 26, 2023 9:21am Power of Manager Style No February 26 9:21am Advance Directive Response Recorded Date/ Time Living Will No March 04, 2025 9:45am Do you have a Healthcare Power of Manager Style? No March 04, 2025 9:45am Living Will No November 26 4:34am Do you have a Healthcare Power of Manager Style? No November 26, 2024 4:34am Advance Directive Response Recorded Date/ Time Living Will No March 04, 2025 9:45am Do you have a Healthcare Power of Manager Style? No March 04, 2025 9:45am Living Will No November 26 4:34am Do you have a Healthcare Power of Manager Style? No November 26, 2024 4:34am Do you have a Healthcare Power of Manager Style? Yes March 23, 2025 6:37pm Advance Directive Response Recorded Date/ Time Living Will No March 04, 2025 9:45am Do you have a Healthcare Power of Manager Style? No March 04, 2025 9:45am Do you have a Healthcare Power of Manager Style? 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 CARE, PT NEEDS NPP SUSPECTED SLEEP APNEA NON HEALING WOUND Reason for Visit Moderately severe de pression Chronic venous hypertension w/ulcer and inflammation involv left side Immunization declined Screening for colon cancer Mild anxiety Establishing care with new doctor, encounter for Rash and nonspecific skin eruption Suspected sleep apnea Essential hypertension Smoker Lipodermatosclerosis Tobacco abuse disorder Venous stasis ulcer of ankle with fat layer exposed Chronic venous hypertension w/ulcer and inflammation involv left side Chronic venous insufficiency Hypertension History of hand surgery History of hemorrhoidectomy History of seizures Tobacco abuse counseling Chief Complaint 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 CARE, PT NEEDS NPP SUSPECTED SLEEP APNEA NON HEALING WOUND NON HEALING WOUND Reason for Visit Moderately severe de pression Chronic venous hypertension w/ulcer and inflammation involv left side Immunization declined Screening for colon cancer Mild anxiety Establishing care with new doctor, encounter for Rash and nonspecific skin eruption Suspected sleep apnea Essential hypertension Smoker Lipodermatosclerosis Tobacco abuse disorder Venous stasis ulcer of ankle with fat layer exposed Chronic venous hypertension w/ulcer and inflammation involv left side Chronic venous insufficiency Hypertension History of hand surgery History of hemorrhoidectomy History of seizures Tobacco abuse counseling Lipodermatosclerosis Tobacco abuse disorder Venous stasis ulcer of ankle with fat layer exposed Chronic venous hypertension w/ulcer and inflammation involv left side Chronic venous insufficiency Hypertension History of hand surgery History of hemorrhoidectomy History of seizures Tobacco abuse counseling Chief Complaint 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 CARE, PT NEEDS NPP SUSPECTED SLEEP APNEA NON HEALING WOUND 4 WK FU NON HEALING WOUND Reason for Visit Moderately severe de pression Chronic venous hypertension w/ulcer and inflammation involv left side Immunization declined Screening for colon cancer Mild anxiety Establishing care with new doctor, encounter for Rash and nonspecific skin eruption Suspected sleep apnea Essential hypertension Smoker Lipodermatosclerosis Tobacco abuse disorder Venous stasis ulcer of ankle with fat layer exposed Chronic venous hypertension w/ulcer and inflammation involv left side Chronic venous insufficiency Hypertension History of hand surgery History of hemorrhoidectomy History of seizures Tobacco abuse counseling Moderately severe depression Chronic venous hypertension w/ulcer and inflammation involv left side Obstructive sleep apnea Mild anxiety Essential hypertension Smoker Lipodermatosclerosis Tobacco abuse disorder Venous stasis ulcer of ankle with fat layer exposed Chronic venous hypertension w/ulcer and inflammation involv left side Chronic venous insufficiency Hypertension History of hand surgery History of hemorrhoidectomy History of seizures Tobacco abuse counseling Chief Complaint 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 CARE, PT NEEDS NPP SUSPECTED SLEEP APNEA NON HEALING WOUND 4 WK FU NON HEALING WOUND 2 W FU MALINI CHR VENOUS INSUFF, VENOUS HTN W/INFLAMMATION Reason for Visit Moderately severe de pression Chronic venous hypertension w/ulcer and inflammation involv left side Immunization declined Screening for colon cancer Mild anxiety Establishing care with new doctor, encounter for Rash and nonspecific skin eruption Suspected sleep apnea Essential hypertension Smoker Lipodermatosclerosis Tobacco abuse disorder Venous stasis ulcer of ankle with fat layer exposed Chronic venous hypertension w/ulcer and inflammation involv left side Chronic venous insufficiency Hypertension History of hand surgery History of hemorrhoidectomy History of seizures Tobacco abuse counseling Moderately severe depression Chronic venous hypertension w/ulcer and inflammation involv left side Obstructive sleep apnea Mild anxiety Essential hypertension Smoker Lipodermatosclerosis Tobacco abuse disorder Venous stasis ulcer of ankle with fat layer exposed Chronic venous hypertension w/ulcer and inflammation involv left side Chronic venous insufficiency Hypertension History of hand surgery History of hemorrhoidectomy History of seizures Tobacco abuse counseling Moderately severe depression Chronic venous hypertension w/ulcer and inflammation involv left side Obstructive sleep apnea Mild anxiety Viral illness Essential hypertension Tinnitus Smoker Lipodermatosclerosis Tobacco abuse disorder Venous stasis ulcer of ankle with fat layer exposed Chronic venous hypertension w/ulcer and inflammation involv left side Chronic venous insufficiency Hypertension History of hand surgery History of hemorrhoidectomy History of seizures Tobacco abuse counseling Chief Complaint 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 CARE, PT NEEDS NPP SUSPECTED SLEEP APNEA NON HEALING WOUND 4 WK FU NON HEALING WOUND 2 W FU MALINI CHR VENOUS INSUFF, VENOUS HTN W/INFLAMMATION MALINI; BIPAP S *INVENTORY TAGGED* Reason for Visit Moderately severe de pression Chronic venous hypertension w/ulcer and inflammation involv left side Immunization declined Screening for colon cancer Mild anxiety Establishing care with new doctor, encounter for Rash and nonspecific skin eruption Suspected sleep apnea Essential hypertension Smoker Lipodermatosclerosis Tobacco abuse disorder Venous stasis ulcer of ankle with fat layer exposed Chronic venous hypertension w/ulcer and inflammation involv left side Chronic venous insufficiency Hypertension History of hand surgery History of hemorrhoidectomy History of seizures Tobacco abuse counseling Moderately severe depression Chronic venous hypertension w/ulcer and inflammation involv left side Obstructive sleep apnea Mild anxiety Essential hypertension Smoker Lipodermatosclerosis Tobacco abuse disorder Venous stasis ulcer of ankle with fat layer exposed Chronic venous hypertension w/ulcer and inflammation involv left side Chronic venous insufficiency Hypertension History of hand surgery History of hemorrhoidectomy History of seizures Tobacco abuse counseling Moderately severe depression Chronic venous hypertension w/ulcer and inflammation involv left side Obstructive sleep apnea Mild anxiety Viral illness Essential hypertension Tinnitus Smoker Lipodermatosclerosis Tobacco abuse disorder Venous stasis ulcer of ankle with fat layer exposed Chronic venous hypertension w/ulcer and inflammation involv left side Chronic venous insufficiency Hypertension History of hand surgery History of hemorrhoidectomy History of seizures Tobacco abuse counseling Chief Complaint 4 WK FU NON HEALING WOUND 2 W FU MALINI CHR VENOUS INSUFF, VENOUS HTN W/INFLAMMATION MALINI; BIPAP S *INVENTORY TAGGED* LEFT EVLA NO MICRO 1 VEIN 2 M FU Reason for Visit Moderately severe de pression Chronic venous hypertension w/ulcer and inflammation involv left side Obstructive sleep apnea Mild anxiety Essential hypertension Smoker Lipodermatosclerosis Tobacco abuse disorder Venous stasis ulcer of ankle with fat layer exposed Chronic venous hypertension w/ulcer and inflammation involv left side Chronic venous insufficiency Hypertension History of hand surgery History of hemorrhoidectomy History of seizures Tobacco abuse counseling Moderately severe depression Chronic venous hypertension w/ulcer and inflammation involv left side Obstructive sleep apnea Mild anxiety Viral illness Essential hypertension Tinnitus Smoker Lipodermatosclerosis Tobacco abuse disorder Venous stasis ulcer of ankle with fat layer exposed Chronic venous hypertension w/ulcer and inflammation involv left side Chronic venous insufficiency Hypertension History of hand surgery History of hemorrhoidectomy History of seizures Tobacco abuse counseling Moderately severe depression Chronic venous hypertension w/ulcer and inflammation involv left side Obstructive sleep apnea Mild anxiety Erectile dysfunction Rash and nonspecific skin eruption Essential hypertension Urinary dribbling Cough in adult Tinnitus Smoker Chief Complaint Admit Date ACUTE SADDLE PE W/ HYPOXIA November 26, 2024 12:57am ACUTE SADDLE PE W/ HYPOXIA November 26, 2024 10:25am ACUTE SADDLE PE W/ HYPOXIA November 26, 2024 4:51pm ACUTE SADDLE PE W/ HYPOXIA November 27, 2024 11:24am ACUTE SADDLE PE W/ HYPOXIA November 27, 2024 6:39pm ACUTE SADDLE PE W/ HYPOXIA November 28, 2024 11:46am Stitch removal/FU December 02, 2024 2 :11pm HOSP FU December 10, 2024 7 :22am Saddle embolus of pulmonary artery witho ut acute c December 29, 2024 11:09am chest pain March 04, 2025 9:3 4am Reason for Visit Admit Date Hypoxia November 26, 2024 12 :57am Acute saddle pulmonary embolism November 26, 2024 12:57am DVT (deep venous thrombosis) November 2:11pm Chronic venous hypertension w/ulcer and inflammation involv left side December 02, 2024 2:11pm Acute saddle pulmonary embolism December 02, 2024 2:11pm Acute respiratory failure with hypoxemia December 10, 2024 7:22am Moderately severe depression November 7:22am Chronic venous hypertension w/ulcer and inflammation involv left side December 10, 2024 7:22am Obstructive sleep apnea December 10 7:22am Mild anxiety December 10, 2024 7 :22am Saddle pulmonary embolus December 10 7:22am Influenza vaccination declined November 192024 7:22am Erectile dysfunction December 10, 2024 7:22am Essential hypertension December 10 7:22am Urinary dribbling December 10, 2024 7 :22am Quit smoking December 10, 2024 7 :22am Hospital discharge follow-up November 7:22am Chief Complaint Admit Date ACUTE SADDLE PE W/ HYPOXIA November 26, 2024 12:57am ACUTE SADDLE PE W/ HYPOXIA November 26, 2024 10:25am ACUTE SADDLE PE W/ HYPOXIA November 26, 2024 4:51pm ACUTE SADDLE PE W/ HYPOXIA November 27, 2024 11:24am ACUTE SADDLE PE W/ HYPOXIA November 27, 2024 6:39pm ACUTE SADDLE PE W/ HYPOXIA November 28, 2024 11:46am Stitch removal/FU December 02, 2024 2 :11pm HOSP FU December 10, 2024 7 :22am Saddle embolus of pulmonary artery witho ut acute c December 29, 2024 11:09am chest pain March 04, 2025 9:3 4am celluliltis March 23, 2025 5:52pm Chief Complaint Admit Date HOSP FU December 10, 2024 7 :22am Saddle embolus of pulmonary artery witho ut acute c December 29, 2024 11:09am chest pain March 04, 2025 9:3 4am celluliltis March 23, 2025 5:52pm WC FOLLOW UP April 02, 2025 3:02p m Reason for Visit Admit Date Acute respiratory failure with hypoxemia December 10, 2024 7:22am Moderately severe depression November 7:22am Chronic venous hypertension w/ulcer and inflammation involv left side December 10, 2024 7:22am Obstructive sleep apnea December 10 7:22am Mild anxiety December 10, 2024 7 :22am Saddle pulmonary embolus December 10, 025 7:22am Influenza vaccination declined November 192024 7:22am Erectile dysfunction December 10, 2024 7:22am Essential hypertension December 10 7:22am Urinary dribbling December 10, 2024 7 :22am Quit smoking December 10, 2024 7 :22am Hospital discharge follow-up November 7:22am Chief Complaint Admit Date chest pain March 04, 2025 9:3 4am celluliltis March 23, 2025 5:52pm WC FOLLOW UP April 02, 2025 3:02p m Varicose veins of unspecified lower extr emity with May 24, 2025 7:53am Reason for Visit Admit Date Cellulitis of left lower leg April 02, 2 025 3:02pm Chief Complaint Admit Date chest pain March 04, 2025 9:3 4am celluliltis March 23, 2025 5:52pm [facility] FOLLOW UP April 02, 2025 3:02p m Varicose veins of unspecified lower extr emity with May 24, 2025 7:53am 6 M FU June 01, 2025 3:31 pm Additional Source Comments (unrecognized sect ion and content) No Status Records FoundNo Status Records Found INFORMATION SOURCE (unrecogn ized section and content) DATE CREATED AUTHOR 12/18/2021 [facility] DATE CREATED AUTHOR AUTHOR'S AUTUMN LYLE 06/18/2025 [facility] Goals (unrecognized section and content) Goals may be documented in a n alternate sectionGoals may be documented in an alternate sectionGoals may be documented in an alternate sectionGoals may be documented in an alternate sectionGoals may be documented in an alternate sectionGoals may be documented in an alternate sectionGoals may be documented in an alternate sectionGoals may be documented in an alternate sectionGoals may be documented in an alternate sectionGoals may be documented in an alternate sectionGoals may be documented in an alternate sectionGoals may be documented in an alternate section Care Teams (unrecognized sec tion and content) Team Status: Active Member Role Status Dates No Primary Care Physician Family Provider Active Dr. Kelsey Jacobs MD Primary Care Provider Active Team Status: Active Member Role Status Dates No Primary Care Physician Primary Care Provider Active Dr. Fred Watson MD Attending Provider Active Dr. Nico John MD Referring Provider Active Team Status: Inactive Member Role Status Dates Dr. Jovanna Diaz MD Primary Care Provider, Referrin g Provider Active Dr. Kelsey Jacobs MD Attending Provider Active Team Status: Inactive Member Role Status Dates No Primary Care Physician Primary Care Provider Active Dr. Nico John MD Attending Provider, Emergency Provider Active Team Status: Inactive Member Role Status Dates Dr. Edgar Brooks MD Attending Provider, Referring P rovider Active Dr. Kelsey Jacobs MD Primary Care Provider Active Team Status: Active Member Role Status Dates Dr. Kelsey Jacobs MD Primary Care Pro vider, Attending Provider, Referring Provider Active Team Status: Inactive Member Role Status Dates Dr. Kelsey Jacobs MD Primary Care Pro vider, Attending Provider, Referring Provider Active Team Status: Active Member Role Status Dates Dr. Edgar Brooks MD Attending Provider, Referring P rovider Active Dr. Kelsey Jacobs MD Primary Care Provider Active Team Status: Inactive Member Role Status Dates Dr. Jovanna Diaz MD Referring Provider Active Dr. Kelsey Jacobs MD Primary Care Provider, Attendi ng Provider Active Team Status: Active Member Role Status Dates Dr. Kelsey Jacobs MD Primary Care Provider, Attendi ng Provider Active Team Status: Inactive Member Role Status Dates Dr. Kelsey Jacobs MD Primary Care Provider, Attendi ng Provider Active Team Status: Active Member Role Status Dates Dr. Kelsey Jacobs MD Primary Care Provider Active Dr. Edgar Brooks MD Attending Provider, Referring P rovider Active Team Status: Inactive Member Role Status Dates Dr. Kelsey Jacobs MD Primary Care Provider Active Dr. Edgar Brooks MD Attending Provider, Referring P rovider Active Team Status: Active Member Role Status Dates Dr. Kelsey Jaocbs MD Primary Care Provider Active Team Status: Inactive Member Role Status Dates Dr. Kelsey Jacobs MD Primary Care Provider Active Start: November 26, 2024 End: November 28, 2024 Dr. Juan Jose Knight DO Emergency Provider Active Start: November 26, 2024 End: November 28, 2024 Dr. Nestor Chaidez DO Admit Provider Active Start: November 26, 2024 End: November 28, 2024 Dr. Nestor Chaidez DO Other Provider Active Start: November 26, 2024 End: November 28, 2024 Dr. Hemant Castillo DO Attending Provider Active Start: November 26, 2024 End: November 28, 2024 Dr. Shashank Millan MD Other Provider Active Start : November 26, 2024 End: November 28, 2024 Team Status: Active Member Role Status Dates Dr. Kelsey Jacobs MD Primary Care Provider Active Start: November 26, 2024 Dr. Bib Bragg MD Attending Provider Active S tart: November 26, 2024 Team Status: Active Member Role Status Dates Dr. Kelsey Jacobs MD Primary Care Provider Active Start: November 26, 2024 Dr. Juan Jose Knight DO Emergency Provider Active Start: November 26, 2024 Dr. Nestor Chaidez DO Admit Provider Active Start: November 26, 2024 Dr. Nestor Chaidez DO Referring Provider Active Start: November 26, 2024 Dr. Nestor Chaidez DO Other Provider Active Start: November 26, 2024 Dr. Hemant Castillo DO Other Provider Active S tart: November 26, 2024 Dr. Wilson Wilkerson MD Other Provider Active Start: November 26, 2024 Dr. Shelton Acevedo MD Other Provider Active Start: November 26, 2024 Dr. Tato Morocho MD Other Provider Active Star t: November 26, 2024 Dr. Hugo Vee DO Attending Provider Active S tart: November 26, 2024 Dr. Hugo Vee DO Other Provider Active Start : November 26, 2024 Dr. Spike Kline MD Other Provider Active Sta rt: November 26, 2024 Dr. Mak Titus MD Other Provider Active St art: November 26, 2024 Dr. Wang Stewart MD Other Provider Active S tart: November 26, 2024 Dr. Kerri Au MD Other Provider Active Start: November 26, 2024 Dr. Jayson Otero MD Other Provider Active Start : November 26, 2024 Dr. Praneeth Monsalve MD Other Provider Active Start: November 26, 2024 Dr. Juan Jose Rios MD Other Provider Active Start : November 26, 2024 Dr. Karely Galaviz MD Other Provider Active Star t: November 26, 2024 Dr. Cesar Paul MD Other Provider Active Sta rt: November 26, 2024 Dr. Tony Rutledge MD Other Provider Active Star t: November 26, 2024 Dr. Mt Jovel MD Other Provider Active St art: November 26, 2024 Dr. Sourav Coelho MD Other Provider Active Star t: November 26, 2024 Dr. Jaime Cavazos DO Other Provider Active St art: November 26, 2024 Dr. Anastaisya Longoria MD Other Provider Active Start: November 26, 2024 Dr. Bakari Lin MD Other Provider Active St art: November 26, 2024 Dr. Oscar Prakash DO Other Provider Active Start: November 26, 2024 Dr. Blade Scott MD Other Provider Active Star t: November 26, 2024 Dr. Santana Osorio MD Other Provider Active Sta rt: November 26, 2024 Dr. Shashank Millan MD Other Provider Active Start : November 26, 2024 Team Status: Active Member Role Status Dates Dr. Kelsey Jacobs MD Primary Care Provider Active Start: November 26, 2024 Dr. Juan Jose Knight , Emergency Provider Active Start: November 26, 2024 Dr. Nestor Chaidez , Admit Provider Active Start: November 26, 2024 Dr. Nestor Chaidez DO Other Provider Active Start: November 26, 2024 Dr. Hemant Castillo DO Other Provider Active S tart: November 26, 2024 Dr. Wilson Wilkerson MD Other Provider Active Start: November 26, 2024 Dr. Shelton Acevedo MD Other Provider Active Start: November 26, 2024 Dr. Tato Morocho MD Other Provider Active Star t: November 26, 2024 Dr. Hugo Vee DO Other Provider Active Start : November 26, 2024 Dr. Spike Kline MD Other Provider Active Sta rt: November 26, 2024 Dr. Mak Titus MD Other Provider Active St art: November 26, 2024 Dr. Wang Stewart MD Other Provider Active S tart: November 26, 2024 Dr. Kerri Au MD Other Provider Active Start: November 26, 2024 Dr. Jayson Otero MD Other Provider Active Start : November 26, 2024 Dr. Praneeth Monsalve MD Other Provider Active Start: November 26, 2024 Dr. Jaun Jose Rios MD Other Provider Active Start : November 26, 2024 Dr. Karely Galaviz MD Other Provider Active Star t: November 26, 2024 Dr. Cesar Paul MD Other Provider Active Sta rt: November 26, 2024 Dr. Tony Rutledge MD Other Provider Active Star t: November 26, 2024 Dr. Mt Jovel MD Other Provider Active St art: November 26, 2024 Dr. Sourav Coelho MD Other Provider Active Star t: November 26, 2024 Dr. Jaime Cavazos DO Other Provider Active St art: November 26, 2024 Dr. Anastasiya Longoria MD Other Provider Active Start: November 26, 2024 Dr. Bakari Lin MD Other Provider Active St art: November 26, 2024 Dr. Oscar Fernstrom , DO Other Provider Active Start: November 26, 2024 Dr. Blade Scott MD Other Provider Active Star t: November 26, 2024 Dr. Santana Osorio MD Other Provider Active Sta rt: November 26, 2024 Dr. Shashank Millan MD Attending Provider Active S tart: November 26, 2024 Dr. Shashank Millan MD Other Provider Active Start : November 26, 2024 Team Status: Active Member Role Status Dates Dr. Kelsey Jacobs MD Primary Care Provider Active Start: November 27, 2024 Dr. Juan Jose Knight , DO Emergency Provider Active Start: November 27, 2024 Dr. Nestor Chaidez , DO Admit Provider Active Start: November 27, 2024 Dr. Nestor Chaidez , DO Referring Provider Active Start: November 27, 2024 Dr. Nestor Chaidez , DO Other Provider Active Start: November 27, 2024 Dr. Hemant Castillo , DO Other Provider Active S tart: November 27, 2024 Dr. Shashank Millan MD Other Provider Active Start : November 27, 2024 Dr. Hugo Vee , Attending Provider Active S tart: November 27, 2024 Team Status: Active Member Role Status Dates Dr. Kelsey Jacobs MD Primary Care Provider Active Start: November 27, 2024 Dr. Juan Jose Knight , DO Emergency Provider Active Start: November 27, 2024 Dr. Nestor Chaidez , DO Admit Provider Active Start: November 27, 2024 Dr. Nestor Chaidez DO Other Provider Active Start: November 27, 2024 Dr. Hemant Castillo DO Attending Provider Active Start: November 27, 2024 Dr. Hemant Castillo , DO Other Provider Active S tart: November 27, 2024 Dr. Shashank Millan MD Other Provider Active Start : November 27, 2024 Team Status: Active Member Role Status Dates Dr. Kelsey Jacobs MD Primary Care Provider Active Start: November 28, 2024 Dr. Juan Jose Knight , DO Emergency Provider Active Start: November 28, 2024 Dr. Nestor Chaidez , DO Admit Provider Active Start: November 28, 2024 Dr. Nestor Chaidez , DO Other Provider Active Start: November 28, 2024 Dr. Hemant Castillo , DO Attending Provider Active Start: November 28, 2024 Dr. Hemant Castillo , DO Other Provider Active S tart: November 28, 2024 Dr. Shashank Millan MD Other Provider Active Start : November 28, 2024 Team Status: Inactive Member Role Status Dates Dr. Kelsey Jacobs MD Primary Care Provider Active Start: December 02, 2024 End: December 02, 2024 Dr. Kelsey Jacobs MD Referring Provider Active Start: December 02, 2024 End: December 02, 2024 TEX Jeffers Attending Provider Active Star t: December 02, 2024 End: December 02, 2024 Team Status: Inactive Member Role Status Dates Dr. Kelsey Jacobs MD Primary Care Provider Active Start: December 10, 2024 End: December 10, 2024 Dr. Kelsey Jacobs MD Attending Provider Active Start: December 10, 2024 End: December 10, 2024 Dr. Kelsey Jacobs MD Referring Provider Active Start: December 10, 2024 End: December 10, 2024 Team Status: Inactive Member Role Status Dates Dr. Kelsey Jacobs MD Primary Care Provider Active Start: December 29, 2024 End: December 29, 2024 TEX Jeffers Attending Provider Active Star t: December 29, 2024 End: December 29, 2024 TEX Jeffers Referring Provider Active Star t: December 29, 2024 End: December 29, 2024 Team Status: Active Member Role Status Dates Dr. Kelsey Jacobs MD Primary Care Provider Active Start: December 29, 2024 Dr. Bib Bragg MD Attending Provider Active S tart: December 29, 2024 Team Status: Inactive Member Role Status Dates Dr. Kelsey Jacobs MD Primary Care Provider Active Start: March 04, 2025 End: March 04, 2025 Dr. Blake Andrea MD Emergency Provider Active Sta rt: March 04, 2025 End: March 04, 2025 Team Status: Inactive Member Role Status Dates Dr. Kelsey Jacobs MD Primary Care Provider Active Start: March 04, 2025 End: March 04, 2025 Dr. Blake Andrea MD Attending Provider Active Sta rt: March 04, 2025 End: March 04, 2025 Dr. Blake Andrea MD Emergency Provider Active Sta rt: March 04, 2025 End: March 04, 2025 Team Status: Inactive Member Role Status Dates Dr. Kelsey Jacobs MD Primary Care Provider Active Start: March 23, 2025 End: March 23, 2025 Dr. Mateo Hoffman MD Emergency Provider Active S tart: March 23, 2025 End: March 23, 2025 Team Status: Inactive Member Role Status Dates Dr. Kelsey Jacobs MD Primary Care Provider Active Start: March 23, 2025 End: March 23, 2025 Dr. Mateo Hoffman MD Attending Provider Active S tart: March 23, 2025 End: March 23, 2025 Dr. Mateo Hoffman MD Emergency Provider Active S tart: March 23, 2025 End: March 23, 2025 Team Status: Inactive Member Role Status Dates Dr. Kelsey Jacobs MD Primary Care Provider Active Start: April 02, 2025 End: April 02, 2025 Dr. Kelsey Jacobs MD Referring Provider Active Start: April 02, 2025 End: April 02, 2025 Colin NICE PA Attending Provider Active St art: April 02, 2025 End: April 02, 2025 Team Status: Active Member Role/Relationship Status Dates Dr. Kelsey Jacobs MD Primary Care Provider Active Team Status: Inactive Member Role/Relationship Status Dates Dr. Kelsey Jacobs MD Primary Care Provider Active Start: March 04, 2025 End: March 04, 2025 Dr. Blake Andrea MD Attending Provider Active Sta rt: March 04, 2025 End: March 04, 2025 Dr. Blake Andrea MD Emergency Provider Active Sta rt: March 04, 2025 End: March 04, 2025 Team Status: Inactive Member Role/Relationship Status Dates Dr. Kelsey Jacobs MD Primary Care Provider Active Start: March 23, 2025 End: March 23, 2025 Dr. Mateo Hoffman MD Attending Provider Active S tart: March 23, 2025 End: March 23, 2025 Dr. Mateo Hoffman MD Emergency Provider Active S tart: March 23, 2025 End: March 23, 2025 Team Status: Inactive Member Role/Relationship Status Dates Dr. Kelsey Jacobs MD Primary Care Provider Active Start: April 02, 2025 End: April 02, 2025 Dr. Kelsey Jacobs MD Referring Provider Active Start: April 02, 2025 End: April 02, 2025 TEX Barba Attending Provider Active St art: April 02, 2025 End: April 02, 2025 Team Status: Inactive Member Role/Relationship Status Dates Dr. Kelsey Jacobs MD Primary Care Provider Active Start: May 24, 2025 End: May 24, 2025 TEX Jeffers Attending Provider Active Star t: May 24, 2025 End: May 24, 2025 TEX Jeffers Referring Provider Active Star t: May 24, 2025 End: May 24, 2025 Team Status: Active Member Role/Relationship Status Dates Dr. Kelsey Jacobs MD Primary Care Provider Active Start: May 24, 2025 Dr. Shashank Millan MD Attending Provider Active S tart: May 24, 2025 Team Status: Inactive Member Role/Relationship Status Dates Dr. Kelsey Jacobs MD Primary Care Provider Active Start: June 01, 2025 End: June 01, 2025 Dr. Kelsey Jacobs MD Referring Provider Active Start: June 01, 2025 End: June 01, 2025 TEX Jeffers Attending Provider Active Star t: June 01, 2025 End: June 01, 2025 FOR RECORDS PERTAINING TO PATIENTS WHO ARE OR HAVE BEEN ENROLLED IN A CHEMICAL DEPENDENCY/SUBSTANCEABUSE PROGRAM, SOME INFORMATION MAY BE OMITTED. This clinical summary was aggregated from multiple sources. Caution should be exercised in using it in the provision of clinical care. This summary normalizes information from multiple sources, and as a consequence, information in this document may materially change the coding, format and clinical context of patient data. In addition, data may be omitted in some cases. CLINICAL DECISIONS SHOULD BE BASED ON THE PRIMARY CLINICAL RECORDS. [facility] [employer] provides no warranty or guarantee of the accuracy or completeness of information in this document.
[2025-06-21 07:44] LABS: Hematocrit 47.7 % (40-54); Hemoglobin 16.3 g/dL (13.0-16.5); Mean Corp Hgb Conc 34.2 g/dL (32-36); Mean Corpuscular Volume 86.3 fL (80-94); Mean Platelet Vol. 10.7 fl (6.2-12.0); Platelet Count 214 K/mm3 (150-450); RBC Distribution Width CV 13.2 % (11.6-14.6); RBC Distribution Width SD 41.5 fl (35.1-43.9); Red Blood Count 5.53 M/mm3 (4.6-6.2); White Blood Count 6.0 K/mm3 (4.4-11.0)
[2025-06-21 08:40] LABS: Anion Gap 12 (5-15); BUN 19 mg/dL (4-19); BUN/Creat Ratio 20.8 RATIO (10-20); Calcium,Total 8.8 mg/dL (7.6-11.0); Carbon Dioxide 20.3 mmol/L (21.0-32.0); Chloride 106 mmol/L (98-108); Estimated Creatinine Clearance 109.04 ml/min (50-250); Glucose 99 mg/dL (70-99); Potassium 4.3 mmol/L (3.3-5.1)
--- NOTE | 2025-06-21 16:06 | OP.PCM_ITS ---
Operative Report (Standard) Operative Information Date of Procedure: 06/21/25 Pre-Operative Diagnosis: History of unprovoked right lower extremity deep vein thrombosis, venous insufficiency with healed ulcerations Post-Operative Diagnosis: Same Surgery/Procedure Performed: Venogram inferior vena cava Intravascular ultrasound inferior vena cava, bilateral common iliac veins, bilateral external iliac veins Angioplasty and stent right external iliac vein streaming media specialist: No Type of Anesthesia: Local and Sedation,Conscious Procedure Start Time: 08:10 Procedure Stop Time: 08:55 Select all DRAINS/GRAFTS/IMPLANTS that apply: Implanted device Implanted device details: Bard Venovo 14 x 160 Estimated Blood Loss: 3 Specimen collected: No Description of surgery: HPI: Patient is a 65-year-old male with a prior unprovoked right lower extremity deep vein thrombosis and subsequent submassive PE which required thrombectomy. He also has longstanding bilateral lower extremity skin changes consistent with venous insufficiency with recurrent ulcerations currently healed. He presents now for venogram to assess for central venous obstruction as part of the underlying pathology of his venous disease. Description of procedure: Upon obtaining informed consent and verification correct patient procedure site the patient was taken to the Em Physician he was positioned prepped and draped in usual sterile fashion. Time was performed and conscious addition administered Versed and fentanyl. Skin overlying the right common femoral vein was anesthetized 1% lidocaine and the vessel accessed under ultrasound guidance with a micropuncture needle wire. This was exchanged for micropuncture sheath through which hand-injection ilio caval venogram was performed revealing satisfactory positioning with no extravasation or dissection. This also revealed a dual external iliac vein system with the more dominant smaller in caliber than typical with dilated common femoral vein inferiorly and common external iliac vein of normal caliber superiorly. Through the micropuncture sheath a [place] wire was advanced the micropuncture sheath exchanged for a 10 [place] sheath. Next skin overlying the left common femoral vein was anesthetized with 1% lidocaine the vessel accessed under ultrasound guidance with a micropuncture needle wire. This is then exchanged for micropuncture sheath routine injection ilio caval venogram was performed revealing satisfactory positioning with no extravasation or dissection. This revealed normal caliber left common and external leg vein as well as normal caliber vena cava. Through the micropuncture sheath a glide advantage wire was advanced the micropuncture sheath exchanged for a second 10 [place] sheath. The patient was then heparinized allowed to circulate for 3 minutes. Intravascular sound probe was then advanced via the right femoral access sheath and recorded pullback performed of the IVC, right common iliac vein, right external iliac vein. 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 This also demonstrated 55% compression of the external iliac vein and close proximity to the origin of the duplicate vein in the mid to distal external iliac vein. It was felt that this was sufficient for intervention. The ultrasound probe was then withdrawn and advanced via the left femoral access sheath and recorded pullback performed of the IVC, left common iliac vein, left external iliac vein. This revealed normal caliber common and external iliac vein with no evidence of obstruction or compression. Reference vessel dimensions were obtained of the right common and external iliac vein. Intravascular ultrasound probe was then readvanced via the right femoral access sheath and position of normal caliber vessel marked length measurement obtained. A Bard Venovo 14 x 160 was then brought onto the field and prepped per manufactures instructions. It was then advanced via the right femoral access sheath and deployed in position covering the extent of the abnormal caliber segment. Next a Bard [place] 12 x 40 angioplasty balloon was advanced and inflated to nominal for multiple inflations across the entirety of the length of the stent. Completion venogram revealed satisfactory stent positioning no extravasation or dissection. There is satisfactory wall apposition and there was no longer filling of the collateral branch. The intravascular ultrasound probe was then readvanced and recorded pullback performed of the stented segment which confirmed satisfactory resolution of the compression with 0% residual, satisfactory wall apposition throughout. 2-0 silk suture pursestrings were then placed at the access sites and the sheaths withdrawn followed by 5 minutes of manual pressure till hemostasis was observed. The patient was then taken to the recovery area for bedrest prior to discharge to home. Surgical Findings: See above Complications Complications: No
== END 2025-06-21 13:10 | disposition home or self-care (01) ==
PROVIDERS: PCP Internal Medicine; Referring Provider Surgery Trauma Surgery; Visit Provider Surgery Trauma Surgery
DX: I87.2 Venous insufficiency (chronic) (peripheral) (principal); I10 Essential (primary) hypertension; F32.A Depression, unspecified; N42.9 Disorder of prostate, unspecified; Z79.01 Long term (current) use of anticoagulants; Z86.711 Personal history of pulmonary embolism; Z86.718 Personal history of other venous thrombosis and embolism; Z79.899 Other long term (current) drug therapy; Z87.891 Personal history of nicotine dependence
CPT/HCPCS: 36010; 37238; 37252; 37253; 75825; 76937; 80048; 85027; 99152; 99153; C1753; C1769; C1876; C1894; Q9967; C1725